=== PATIENT | male | born 1940 | race Caucasian/White ===

== ENCOUNTER → 2017-04-08 | Outpatient (CLI) | payer OTHER, MEDICARE ==
[~2017-04-08] MED LIST: ACET-1256 PO; ASPCH81 PO; FISH1CAP7; GABA-113 PO; HYDC25 PO; MULT-506 PO; NAPR1TAB9 PO; TROL10LO; [UNRECOGNIZED DRUG - OTHER] TOP; compounded cream TOP; lidocaine patch
[2017-04-08 13:12] LABS: ALT/SGPT 23 U/L (12-78); BLOOD UREA NITROGEN 28 mg/dl (7-18); CARBON DIOXIDE 29 mmol/L (21-32); CHLORIDE 101 mmol/L (98-107); GLUCOSE 79 mg/dl (70-99); POTASSIUM 3.9 mmol/L (3.5-5.1); SODIUM 137 mmol/L (136-145)
[2017-04-08 13:15] LABS: ALB/GLOB RATIO 1.5 (0.9-2); ALKALINE PHOSPHATASE 64 U/L (45-117); AST/SGOT 21 U/L (15-37)
== END | disposition home or self-care (01) ==
LOC: C.LABPVFM 08:12
PROVIDERS: ATTEND Family Medicine
DX: I10 Essential (primary) hypertension (principal); C85.10 Unspecified B-cell lymphoma, unspecified site; E55.9 Vitamin D deficiency, unspecified

== ENCOUNTER → 2017-10-11 | Outpatient (CLI) | payer OTHER, MEDICARE ==
[~2017-10-11] MED LIST changes: -NAPR1TAB9 PO; -[UNRECOGNIZED DRUG - OTHER] TOP; -compounded cream TOP
[2017-10-11 13:09] LABS: ALT/SGPT 23 U/L (12-78); BLOOD UREA NITROGEN 23 mg/dl (7-18); BUN/CREATININE RATIO 16.1 (10-20); CALCIUM 8.8 mg/dl (8.5-10.1); CARBON DIOXIDE 31 mmol/L (21-32); CHLORIDE 97 mmol/L (98-107); CREATININE 1.42 mg/dl (0.60-1.40); GLUCOSE 116 mg/dl (70-99); POTASSIUM 3.5 mmol/L (3.5-5.1); SODIUM 135 mmol/L (136-145)
[2017-10-11 13:12] LABS: ALB/GLOB RATIO 1.1 (0.9-2); ALKALINE PHOSPHATASE 87 U/L (45-117); AST/SGOT 16 U/L (15-37)
== END | disposition home or self-care (01) ==
LOC: C.LABPVFM 08:44
PROVIDERS: ATTEND Family Medicine
DX: I10 Essential (primary) hypertension (principal); C85.10 Unspecified B-cell lymphoma, unspecified site; E11.42 Type 2 diabetes mellitus with diabetic polyneuropathy; B02.29 Other postherpetic nervous system involvement

== ENCOUNTER → 2018-03-09 | Outpatient (CLI) | payer OTHER ==
[2018-03-09 13:12] LABS: BASO ABS # 0.08 K/uL (0-0.2); EOS % 5.1 %; HEMATOCRIT 46.3 % (42-52); HEMOGLOBIN 16.2 g/dL (14.0-18.0); IG# 0.01 K/uL (0.00-0.02); LYMPH % 24.6 %; LYMPH ABS # 0.97 K/uL (1.2-3.4); MEAN CELL VOLUME 89.7 fL (80-100); MEAN CORPUSCULAR HEMOGLOBIN 31.4 pg (25-34); MEAN PLATELET VOLUME 10.8 fL (7.4-10.4); MONO % 13.5 %; MONO ABS # 0.53 K/uL (0.11-0.59); NEUT % 54.5 %; NEUT ABS # 2.15 K/uL (1.4-6.5); PLATELET COUNT 235 K/uL (130-400); RED CELL DISTRIBUTION WIDTH CV 13.7 % (11.5-14.5); RED CELL DISTRIBUTION WIDTH SD 45.1 fL (36.4-46.3); WHITE BLOOD COUNT 3.94 K/uL (4.8-10.8)
[2018-03-09 13:20] LABS: ALBUMIN 3.8 gm/dl (3.4-5.0); ALT/SGPT 24 U/L (12-78); AST/SGOT 19 U/L (15-37); BLOOD UREA NITROGEN 22 mg/dl (7-18); CALCIUM 9.2 mg/dl (8.5-10.1); CARBON DIOXIDE 33 mmol/L (21-32); CREATININE 1.41 mg/dl (0.60-1.40); GLUCOSE 87 mg/dl (70-99); POTASSIUM 3.6 mmol/L (3.5-5.1); SODIUM 133 mmol/L (136-145)
[2018-03-09 13:22] LABS: ALKALINE PHOSPHATASE 80 U/L (45-117); TOTAL PROTEIN 7.4 gm/dl (6.4-8.2)
[2018-03-10 07:20] LABS: HEMOGLOBIN A1C 6.1 % (4.5-5.6)
== END | disposition home or self-care (01) ==
LOC: C.LABPVFM 09:30
PROVIDERS: ATTEND Family Medicine
DX: I12.9 Hypertensive chronic kidney disease with stage 1 through stage 4 chronic kidney disease, or unspecified chronic kidney disease (principal); C85.10 Unspecified B-cell lymphoma, unspecified site; R73.09 Other abnormal glucose; N18.3 Chronic kidney disease, stage 3 (moderate); E55.9 Vitamin D deficiency, unspecified; B02.29 Other postherpetic nervous system involvement

== ENCOUNTER 2019-05-08 08:35 | Inpatient (IN) ==
[2019-05-08] MEDS ORDERED: SODIUM CHLORIDE 0.9% 250 ML IV PRN (08:50)
[2019-05-08] MEDS ORDERED: SODIUM CHLORIDE 0.9% 1000ML 1,000 ML IV SCH (09:00)
[2019-05-08 09:22] LABS: Basophils # (auto) 0.02 K/uL (0-0.2); Basophils % (auto) 0.2 %; Eosinophils # (auto) 0.08 K/uL (0-0.5); Eosinophils % (auto) 0.8 %; Hematocrit (blood only) 40.4 % (42-52); Hemoglobin 13.6 g/dL (14.0-18.0); Immature Granulocytes # (auto) 0.05 K/uL (0.00-0.02); Immature Granulocytes % (auto) 0.5 %; Lymphocytes # (auto) 0.93 K/uL (1.2-3.4); Lymphocytes % (auto) 8.8 %; Mean Corpuscular Hgb Conc 33.7 g/dL (32-36); Mean Corpuscular Volume 93.1 fL (80-100); Mean Platelet Volume 10.9 fL (7.4-10.4); Monocytes # (auto) 0.77 K/uL (0.11-0.59); Monocytes % (auto) 7.3 %; Neutrophils # (auto) 8.74 K/uL (1.4-6.5); Neutrophils % (auto) 82.4 %; Platelet Count 215 K/uL (130-400); RDW Standard Deviation 47.6 fL (36.4-46.3); Red Blood Count 4.34 M/uL (4.7-6.1); White Blood Count 10.59 K/uL (4.8-10.8)
[2019-05-08 09:24] LABS: iSTAT Creatinine 1.7 mg/dl (0.6-1.3); iSTAT Hemoglobin 13.9 g/dl (14.0-18.0); iSTAT Ionized Calcium 1.11 mmol/l (1.12-1.32); iSTAT Potassium 4.3 mEq/L (3.3-5.0)
[2019-05-08 09:38] LABS: Albumin Level 3.3 gm/dl (3.4-5.0); BUN Creatinine Ratio 12.1 (10-20); Calcium 8.3 mg/dl (8.5-10.1); Est GFR (African American) 41.4; Est GFR (Non-African American) 35.7; Potassium 4.3 mmol/L (3.5-5.1)
[2019-05-08 09:39] LABS: Partial Thromboplastin Ratio 0.8; Prothrombin Time 10.5 Seconds (9.0-12.0)
[2019-05-08 09:41] LABS: Albumin Globulin Ratio 1.1 (0.9-2); Bilirubin,Total 0.4 mg/dl (0.2-1); Total Protein 6.3 gm/dl (6.4-8.2)
--- NOTE | 2019-05-08 10:42 | History & Physical Report ---
Date of Service May 08, 2019 Assessment & Plan (1) Lower GI bleed: - Presented with rectal bleeding following polyp removal at [facility] on 05/01/19. Cannot be transferred to [place] due to limited bed availability. - Occult stool was positive. - Hemoglobin level 13.9; trend CBC q8hr, type and cross also ordered. - Famotidine 20 mg IV BID (PPI IV is not available) - GI consulted, appreciate input. - NPO except meds in setting of acute bleed. IV fluids at 100 cc/hr. (2) Acute anemia: - In setting of acute GI bleed following polyp removal. - Trend CBC q8hr -- may require transfusion support. (3) Polyp of colon: - Will need to obtain records from [facility] regarding pathology reports. - Transfer to [facility] pending bed availability. (4) Syncope: - Likely vasovagal episode following multiple BMs this morning with GI bleeding noted. - IV fluids at 100 cc/hr. - Will obtain orthostatic vital signs. - No indication for further cardiac work up at this time. (5) Postherpetic neuralgia: - Continue Gabapentin 600 mg TID. (6) Lymphoma: - H/o DLBCL of nasopharynx in 2014. - Follows with Dr. Abebe. (7) Pre-diabetes: - Most recent A1C was 6.1 -- will repeat level this afternoon. - SSI ordered with gluc checks q6hr in setting of NPO status. (8) CKD (chronic kidney disease), stage III: - Renally dose all meds. - Creat is slightly above baseline, will monitor qAM. - IV fluids at 100 cc/hr. (9) DVT prophylaxis: - SCDs; holding home Aspirin and pharmacologic ppx due to acute bleed. Dispo: PCU/tele for evaluation of lower GI bleed. Pt. may require transfer to [facility] if no improvement. Dr. Boyd is consulted. History of Present Illness Chief Complaint: Rectal Bleeding Primary Care Provider: Lyla Bautista MD Mr. Gaytan is an 78 year old male with past medical history of herpes zoster with post herpetic neuralgia, DLBCL of the nasopharynx, CKD stage III who presented with rectal bleeding following recent polyp removal at [facility]. Pt. had a colonoscopy with polyp removal at [facility] on 05/01/19; he follows with Dr. Boyd but was referred to [facility] for procedure. Pt. was discharged to home on day of procedure and was doing well throughout course of the week. He had multiple BMs this morning after waking up; pt. noticed pink-red discoloration in the toilet after having his 3-4 BM. He laid down in bed but felt the urge to have another BM. After standing up, he developed dizziness and had a syncopal episode. He denies injury to the any area, including hitting his head during the fall. He laid on the ground until the ambulance arrived. Denied shortness of breath or chest pain prior to fall. Does have left sided ear/neck pain related to post herpetic neuralgia. Denies chest pain, SOB, LE edema, headache or vision changes, N/V, abd pain, dysuria or hematuria. ER course: [facility] was contacted for transfer per Dr. Boyd but does not currently have any beds available. Hemoglobin was stable; hemodynamically stable on labs. Will admit for lab work monitoring/IV fluids and transfer to [facility] if necessary pending further evaluation/workup. Allergies Allergy/AdvReac Type Severity Reaction Status Date / Time No Known Allergies Allergy Verified 05/08/19 09:46 Home Medications Home Medications Medication Instructions Recorded Confirmed Type acetaminophen 500 mg tablet 1,000 mg PO Q6H PRN tab 09/14/18 05/08/19 History aspirin 81 mg tablet,delayed 81 mg PO DAILY 09/14/18 05/08/19 History release lidocaine 4 % topical patch 1 patch TOP TID PRN 09/14/18 05/08/19 History omega-3 fatty acids 1,000 mg 1,000 mg PO BID 09/14/18 05/08/19 History capsule gabapentin 600 mg PO TID 05/08/19 05/08/19 History trolamine salicylate 1 applic TOPICAL BID PRN 05/08/19 05/08/19 History Past Med/Surg History Medical History Cervical spondylosis (Chronic) Former smoker (Chronic) Postherpetic neuralgia (Chronic) Lymphoma (Chronic) 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 HTN (hypertension) (Chronic) Polyp of colon Family History Father , Age 91 Renal failure Mother Breast cancer Social History Preferred Language: Divehi Communication Ability: Effective Beliefs That Will Affect Care: None Current Living Situation: Spouse Current Living Situation Comment: Other Information That Helps Us Care for You: No Feels Safe at Home: Yes Safety Concerns: Feels Safe At This Time Smoking Status: Former smoker Tobacco Type: cigarettes Years Smoked: 35 Smoking End Date: 2000 Hx Alcohol Use: Yes (2-3 beers per day ) Alcohol type: beer Hx Substance Use: No Review of Systems Review of Systems: All systems reviewed & are unremarkable except as noted in HPI & below Constitutional: no fever, no chills, no fatigue, no weakness and no anorexia Eyes: no worsening vision Ear, Nose, Mouth, Throat: no nasal discharge and no sore throat Respiratory: no cough, no dyspnea, no dyspnea on exertion and no wheezing Cardiovascular: + lightheadedness and + syncope; no chest pain, no palpitations and no edema Gastrointestinal: + diarrhea/loose stools and + blood in stools; no abdominal pain, no bloating, no nausea, no vomiting and no constipation Genitourinary: no dysuria, no difficulty urinating and no urinary hesitancy Musculoskeletal: no back pain and no joint pain Integumentary: no non-healing lesions Neurologic: no headache(s) Hematologic / Lymphatic: no easy bleeding and no easy bruising Allergy / Immunological: no rash Physical Exam Physical Exam: General: Resting comfortably in no apparent distress HEENT: NC/AT; PERRLA with EOMI; [place] conjunctiva, MMM. No erythema of posterior pharynx Neck: Supple and nontender; No JVD Cardiac: RRR w/o murmurs, gallops or rubs Lungs: CTA bilaterally; No rhonchi, wheezing, or rales Abdomen: Bowel normoactive X 4; Nontender to palpatio Rectal: Deferred : Deferred Back: NO spinous tenderness Extremities: Warm. No edema present Neuro: No focal weakness Skin: No rash Results & Data Vital Signs (Past 12 Hours) Vital Signs Pulse Resp BP Pulse Ox 05/08/19 10:00 64 13 138/89 93 05/08/19 09:45 65 17 140/81 93 05/08/19 09:41 63 20 96 05/08/19 09:31 67 17 145/73 H 05/08/19 09:30 65 11 L 05/08/19 09:17 68 13 135/76 92 05/08/19 09:15 68 19 93 05/08/19 09:00 98 05/08/19 08:46 67 21 97 05/08/19 08:43 78 20 122/80 94 05/08/19 08:39 69 26 H 122/80 96 Laboratory Results 05/08/19 05/08/19 05/08/19 Range/Units 09:42 09:30 09:08 WBC (4.8-10.8) K/uL RBC (4.7-6.1) M/uL Hgb (14.0-18.0) g/dL POC Hgb 13.9 L (14.0-18.0) g/dl Hct (42-52) % POC Hct 41 L (42-52) % MCV (80-100) fL MCH (25-34) pg MCHC (32-36) g/dL RDW Std Deviation (36.4-46.3) fL RDW Coeff of Chantal (11.5-14.5) % Plt Count (130-400) K/uL MPV (7.4-10.4) fL Immature Gran % (Auto) % Neut % (Auto) % Lymph % (Auto) % [place] % (Auto) % Eos % (Auto) % Baso % (Auto) % Immature Gran # (Auto) (0.00-0.02) K/uL Neut # (Auto) (1.4-6.5) K/uL Lymph # (Auto) (1.2-3.4) K/uL [place] # (Auto) (0.11-0.59) K/uL Eos # (Auto) (0-0.5) K/uL Baso # (Auto) (0-0.2) K/uL PT (9.0-12.0) Seconds INR (0.9-1.1) APTT (21.0-31.0) Seconds PTT Ratio POC Sodium 135 (135-144) mEq/L Sodium (136-145) mmol/L POC Potassium 4.3 (3.3-5.0) mEq/L Potassium (3.5-5.1) mmol/L POC Chloride 98 L (101-112) mEq/L Chloride (98-107) mmol/L Carbon Dioxide (21-32) mmol/L POC Total CO2 24 (24-31) mEq/l Anion Gap (3-11) POC Anion Gap 18.0 (16-25) mmol/L POC BUN 24 H (7-18) mg/dl BUN (7-18) mg/dl Creatinine (0.6-1.4) mg/dl POC Creatinine 1.7 H (0.6-1.3) mg/dl Est Cr Clr Drug Dosing ml/min Est GFR ( Amer) Est GFR (Non-Af Amer) BUN/Creatinine Ratio (10-20) Glucose (70-99) mg/dl POC Glucose (other) 207 H (70-99) mg/dl Calcium (8.5-10.1) mg/dl POC Ioniz Calcium Dion 1.11 L (1.12-1.32) mmol/l Total Bilirubin (0.2-1) mg/dl AST (15-37) U/L ALT (12-78) U/L Alkaline Phosphatase (45-117) U/L Total Protein (6.4-8.2) gm/dl Albumin (3.4-5.0) gm/dl Globulin (2.5-4.0) gm/dl Albumin/Globulin Ratio (0.9-2) Specimen Hemolysis POC Stool Occult Blood Positive A (Negative) Blood Type Blood Type Recheck O Positive Antibody Screen Crossmatch 05/08/19 05/08/19 05/08/19 Range/Units 08:57 08:57 08:57 WBC (4.8-10.8) K/uL RBC (4.7-6.1) M/uL Hgb (14.0-18.0) g/dL POC Hgb (14.0-18.0) g/dl Hct (42-52) % POC Hct (42-52) % MCV (80-100) fL MCH (25-34) pg MCHC (32-36) g/dL RDW Std Deviation (36.4-46.3) fL RDW Coeff of Chantal (11.5-14.5) % Plt Count (130-400) K/uL MPV (7.4-10.4) fL Immature Gran % (Auto) % Neut % (Auto) % Lymph % (Auto) % [place] % (Auto) % Eos % (Auto) % Baso % (Auto) % Immature Gran # (Auto) (0.00-0.02) K/uL Neut # (Auto) (1.4-6.5) K/uL Lymph # (Auto) (1.2-3.4) K/uL [place] # (Auto) (0.11-0.59) K/uL Eos # (Auto) (0-0.5) K/uL Baso # (Auto) (0-0.2) K/uL PT 10.5 (9.0-12.0) Seconds INR 1.0 (0.9-1.1) APTT 21.0 (21.0-31.0) Seconds PTT Ratio 0.8 POC Sodium (135-144) mEq/L Sodium 136 (136-145) mmol/L POC Potassium (3.3-5.0) mEq/L Potassium 4.3 (3.5-5.1) mmol/L POC Chloride (101-112) mEq/L Chloride 102 (98-107) mmol/L Carbon Dioxide 25 (21-32) mmol/L POC Total CO2 (24-31) mEq/l Anion Gap 9.0 (3-11) POC Anion Gap (16-25) mmol/L POC BUN (7-18) mg/dl BUN 21 H (7-18) mg/dl Creatinine 1.76 H (0.6-1.4) mg/dl POC Creatinine (0.6-1.3) mg/dl Est Cr Clr Drug Dosing 38.0 ml/min Est GFR ( Amer) 41.4 Est GFR (Non-Af Amer) 35.7 BUN/Creatinine Ratio 12.1 (10-20) Glucose 200 H (70-99) mg/dl POC Glucose (other) (70-99) mg/dl Calcium 8.3 L (8.5-10.1) mg/dl POC Ioniz Calcium Dion (1.12-1.32) mmol/l Total Bilirubin 0.4 (0.2-1) mg/dl AST 20 (15-37) U/L ALT 20 (12-78) U/L Alkaline Phosphatase 67 (45-117) U/L Total Protein 6.3 L (6.4-8.2) gm/dl Albumin 3.3 L (3.4-5.0) gm/dl Globulin 3.0 (2.5-4.0) gm/dl Albumin/Globulin Ratio 1.1 (0.9-2) Specimen Hemolysis POC Stool Occult Blood (Negative) Blood Type O Positive Blood Type Recheck Antibody Screen NEGATIVE Crossmatch See Detail 05/08/19 Range/Units 08:57 WBC 10.59 (4.8-10.8) K/uL RBC 4.34 L (4.7-6.1) M/uL Hgb 13.6 L (14.0-18.0) g/dL POC Hgb (14.0-18.0) g/dl Hct 40.4 L (42-52) % POC Hct (42-52) % MCV 93.1 (80-100) fL MCH 31.3 (25-34) pg MCHC 33.7 (32-36) g/dL RDW Std Deviation 47.6 H (36.4-46.3) fL RDW Coeff of Chantal 14.0 (11.5-14.5) % Plt Count 215 (130-400) K/uL MPV 10.9 H (7.4-10.4) fL Immature Gran % (Auto) 0.5 % Neut % (Auto) 82.4 % Lymph % (Auto) 8.8 % [place] % (Auto) 7.3 % Eos % (Auto) 0.8 % Baso % (Auto) 0.2 % Immature Gran # (Auto) 0.05 H (0.00-0.02) K/uL Neut # (Auto) 8.74 H (1.4-6.5) K/uL Lymph # (Auto) 0.93 L (1.2-3.4) K/uL [place] # (Auto) 0.77 H (0.11-0.59) K/uL Eos # (Auto) 0.08 (0-0.5) K/uL Baso # (Auto) 0.02 (0-0.2) K/uL PT (9.0-12.0) Seconds INR (0.9-1.1) APTT (21.0-31.0) Seconds PTT Ratio POC Sodium (135-144) mEq/L Sodium (136-145) mmol/L POC Potassium (3.3-5.0) mEq/L Potassium (3.5-5.1) mmol/L POC Chloride (101-112) mEq/L Chloride (98-107) mmol/L Carbon Dioxide (21-32) mmol/L POC Total CO2 (24-31) mEq/l Anion Gap (3-11) POC Anion Gap (16-25) mmol/L POC BUN (7-18) mg/dl BUN (7-18) mg/dl Creatinine (0.6-1.4) mg/dl POC Creatinine (0.6-1.3) mg/dl Est Cr Clr Drug Dosing ml/min Est GFR ( Amer) Est GFR (Non-Af Amer) BUN/Creatinine Ratio (10-20) Glucose (70-99) mg/dl POC Glucose (other) (70-99) mg/dl Calcium (8.5-10.1) mg/dl POC Ioniz Calcium Dion (1.12-1.32) mmol/l Total Bilirubin (0.2-1) mg/dl AST (15-37) U/L ALT (12-78) U/L Alkaline Phosphatase (45-117) U/L Total Protein (6.4-8.2) gm/dl Albumin (3.4-5.0) gm/dl Globulin (2.5-4.0) gm/dl Albumin/Globulin Ratio (0.9-2) Specimen Hemolysis POC Stool Occult Blood (Negative) Blood Type Blood Type Recheck Antibody Screen Crossmatch Code Status & VTE Plan Code Status FULL CODE Supervising Physician Co-Signing Physician Notes Attending Attestation and Admission Note - Pt seen/examined, chart reviewed, admission care plan d/w JOSE Thomas. I agree w/ the plaza components of her admission documentation. 78yo male with recent colonic polypectomy at [facility] 1 week ago presenting with BRBPR with resulting acute blood loss anemia. I saw him on the tele unit and he was prepping for colonoscopy scheduled for tomorrow. Bleeding has been mild at best. Denied any abdominal pain. PMH, PSH, allergies, meds, sochx, famhx, ros - reviewed VSS, no fever gen- nad mouth- MMM neck- JVD heart- RRR, s1, s2 lungs- CTA b/l abd- soft, NT, ND, BS+, no HSM ext- no edema H/H w/ mild drop since admission A/P: Presumed lower GI bleed with resulting acute blood loss anemia in setting of recent colonic polypectomy at [facility] last week. Plan for serial H/H's, colonoscopy tomorrow w/ [facility], NPO after MN, colon prep tonight. Telemetry. Willy Casarez MD PG Care Time/CCT Total # of Minutes Spent Total Time Spent with Patient: Total time spent is greater than 50% in coordination of care (as documented) at patient's floor/unit and/or counseling patient:
[2019-05-08] MEDS ORDERED: CALCIUM GLUCONATE 10% 1,000 MG in SODIUM CHLORIDE 0.9% 50 ML IV STA (11:17)
[2019-05-08] MEDS ORDERED: ONDANSETRON INJ 2 MG/ML 2 ML VIAL IV PRN (11:17)
[2019-05-08] MEDS ORDERED: GLUCOSE 40% GEL 15 GM TUBE PO PRN (11:17)
[2019-05-08] MEDS ORDERED: DEXTROSE 50% 50 ML SYRINGE IV PRN (11:17)
[2019-05-08] MEDS ORDERED: ACETAMINOPHEN 500 MG TAB PO PRN (11:17)
[2019-05-08] MEDS ORDERED: GLUCOSE 10 TABS/TUBE PO PRN (11:17)
[2019-05-08] MEDS ORDERED: CARBOHYDRATES FOR HYPOGLYCEMIA PO PRN (11:17)
[2019-05-08] MEDS ORDERED: GLUCAGON FOR INJ 1 MG VIAL SQ PRN (11:17)
[2019-05-08] MEDS ORDERED: INSULIN ASPART 100 UNITS/ML 3 ML PEN SC SCH (11:30)
[2019-05-08] MEDS: FAMOTIDINE 20 MG in SYRINGE 3 ML IV SCH ×2 (12:11→21:56)
[2019-05-08] MEDS: SODIUM CHLORIDE 0.9% 1000ML 1,000 ML IV SCH ×2 (12:14→23:38)
[2019-05-08 14:16] LABS: Hematocrit (blood only) 35.2 % (42-52); Hemoglobin 11.9 g/dL (14.0-18.0); Mean Corpuscular Hgb Conc 33.8 g/dL (32-36); Mean Corpuscular Volume 91.2 fL (80-100); Mean Platelet Volume 10.5 fL (7.4-10.4); Platelet Count 188 K/uL (130-400); RDW Coefficient of Variation 13.9 % (11.5-14.5); Red Blood Count 3.86 M/uL (4.7-6.1); White Blood Count 7.78 K/uL (4.8-10.8)
[2019-05-08] MEDS: GABAPENTIN 600 MG TAB PO SCH ×2 (14:17→23:34)
[2019-05-08 14:27] LABS: Estimated Average Glucose 117 mg/dl; Hemoglobin A1C 5.7 % (4.5-5.6)
[2019-05-08 14:40] LABS: BUN Creatinine Ratio 14.7 (10-20); Calcium 8.1 mg/dl (8.5-10.1); Creatinine Clr Calc Pharmacy 56.1 ml/min; Est GFR (African American) 66.5; Est GFR (Non-African American) 57.3; Potassium 4.1 mmol/L (3.5-5.1)
--- NOTE | 2019-05-08 15:43 | Emergency Department Note ---
Entered by Keyona Medina acting as a scribe for History of Present Illness General Chief complaint: Rectal Bleed Stated complaint: rectal bleed Time Seen by Provider: 05/08/19 08:41 Source: patient Mode of arrival: EMS Limitations: no limitations History of Present Illness Provider complaint: rectal bleeding Onset (ago): hour(s) (this am) Location: abdomen Pain Consistency: + other (episodic) Quality: + other (post-op) Associated symptoms: + denies other symptoms and + syncope; no fever/chills The patient is an 78 year old male who presents to the Emergency Room with complaints of episodic rectal bleeding that began this morning. The patient reports that he had an endoscopy performed a week ago at [facility]. He states that today, he had 4 bowel movements and believes the last one contained blood. He explains that it was very dark. He also notes that after his 4th bowel movement, he felt like he had to go again but that on his way to the bathroom, he lost consciousness s and fell. He reports that he then drank some Gatorade but that he has had a dry mouth since. He denies being on any blood thinners. He also denies any fevers, chills or abdominal pain. [facility] records show that patient had an endoscopy performed on May 01 where they found and receded a polyp from the cecum. There was a small ooze afterwards, so 2 metal clips were placed. There was no bleeding during the procedure. Home Medications Home Medications Medication Instructions Recorded Confirmed Type acetaminophen 500 mg tablet 1,000 mg PO Q6H PRN tab 09/14/18 05/08/19 History aspirin 81 mg tablet,delayed 81 mg PO DAILY 09/14/18 05/08/19 History release lidocaine 4 % topical patch 1 patch TOP TID PRN 09/14/18 05/08/19 History omega-3 fatty acids 1,000 mg 1,000 mg PO BID 09/14/18 05/08/19 History capsule gabapentin 600 mg PO TID 05/08/19 05/08/19 History trolamine salicylate 1 applic TOPICAL BID PRN 05/08/19 05/08/19 History Allergies Allergy/AdvReac Type Severity Reaction Status Date / Time No Known Allergies Allergy Verified 05/08/19 09:46 Past Med/Surg History Medical History Cervical spondylosis (Chronic) Former smoker (Chronic) Postherpetic neuralgia (Chronic) Lymphoma (Chronic) 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 HTN (hypertension) (Chronic) Polyp of colon Family History Father , Age 91 Renal failure Mother Breast cancer Social History Preferred Language: Croatian Communication Ability: Effective Beliefs That Will Affect Care: None Current Living Situation: Spouse Current Living Situation Comment: Other Information That Helps Us Care for You: No Feels Safe at Home: Yes Safety Concerns: Feels Safe At This Time Smoking Status: Former smoker Tobacco Type: cigarettes Years Smoked: 35 Smoking End Date: 2000 Hx Alcohol Use: Yes (2-3 beers per day ) Alcohol type: beer Hx Substance Use: No Review of Systems See HPI for pertinent positives & negatives. and A total of 10 systems reviewed and were otherwise negative Physical Exam Vital Signs Vital Signs - 24 hr 05/08/19 08:39 05/08/19 08:43 05/08/19 08:46 Sepsis Recent Fever Within 48 Hours No Sepsis New/Unexplained Change in Mental Status No Sepsis Action Taken by Nursing No Action Required Pulse Rate 69 78 67 Pulse Rate from SpO2 Sensor 69 68 Pulse Rhythm Regular Pulse Strength Normal Respiratory Rate 26 H 20 21 Respiratory Effort / Characteristics Non-Labored Spontaneous Respiratory Depth Normal Respiratory Pattern Regular Blood Pressure 122/80 122/80 Blood Pressure Mean 94 94 Blood Pressure Position Sitting Pulse Oximetry 96 94 97 Oxygen Delivery Method Room Air 05/08/19 09:00 05/08/19 09:15 05/08/19 09:17 Sepsis Recent Fever Within 48 Hours Sepsis New/Unexplained Change in Mental Status Sepsis Action Taken by Nursing Pulse Rate 68 68 Pulse Rate from SpO2 Sensor 76 68 69 Pulse Rhythm Pulse Strength Respiratory Rate 19 13 Respiratory Effort / Characteristics Respiratory Depth Respiratory Pattern Blood Pressure 135/76 Blood Pressure Mean 95 Blood Pressure Position Pulse Oximetry 98 93 92 Oxygen Delivery Method 05/08/19 09:30 05/08/19 09:31 05/08/19 09:41 Sepsis Recent Fever Within 48 Hours Sepsis New/Unexplained Change in Mental Status Sepsis Action Taken by Nursing Pulse Rate 65 67 63 Pulse Rate from SpO2 Sensor Pulse Rhythm Pulse Strength Respiratory Rate 11 L 17 20 Respiratory Effort / Characteristics Respiratory Depth Respiratory Pattern Blood Pressure 145/73 H Blood Pressure Mean 97 Blood Pressure Position Pulse Oximetry 96 Oxygen Delivery Method Room Air 05/08/19 09:45 05/08/19 09:52 Sepsis Recent Fever Within 48 Hours Sepsis New/Unexplained Change in Mental Status Sepsis Action Taken by Nursing Pulse Rate 65 Pulse Rate from SpO2 Sensor 63 Pulse Rhythm Pulse Strength Respiratory Rate 17 Respiratory Effort / Characteristics Respiratory Depth Respiratory Pattern Blood Pressure 140/81 Blood Pressure Mean 100 Blood Pressure Position Pulse Oximetry 93 Oxygen Delivery Method Room Air General: Non-ill appearing older male in no acute distress. Dry blood in underwear. HEENT: Normal cephalic atraumatic. Pupils are equal round and reactive to light. Extraocular movements are intact. Oropharynx is pink with moist mucous membranes. No swelling of the mouth lips or tongue. Neck: Supple with a midline trachea. No meningeal signs or stiffness, no JVD or bruits. No Stridor. Chest: Clear to auscultation bilaterally. No wheezes or rhonchi. No increased work of breathing. Heart: regular rate and rhythm. Abdomen: Soft nontender, nondistended without rebound guarding or rigidity. Extremities: No cyanosis clubbing or edema. No calf tenderness or asymmetry Rectal: Bright red blood. Spine/Back. Non tender to palpation. No CVA tenderness Skin: Good turgor without rashes. Neurologic exam: Cranial nerves two through 12 are intact. Motor and sensation are intact and symmetrical throughout. Course 0843: Past medical records reviewed. The patient was evaluated in room B4B. A complete history and physical examination was performed. 0901: I reviewed the patient's case with Dr. Boyd - Gastroenterology. He recommends transfer of the patient. 0905: I updated the patient and he is agreeable with the treatment plan. 0917: Dr. Dee [facility] Gastroenterology. He reports that there are no beds currently, but that they will place the patient on the wait list. He states that this is most likely a post-polyp bleed and that our local GI should be able to assess this. 0927: I updated the patient. 0938: I updated Dr. Boyd and he is agreeable with the plan. 0944: I reviewed the patient's case with Dr. Retana - [facility] Hospitalist. She will evaluate the patient for further management. Administered Medications Gabapentin (Neurontin) 600 mg PO TID TONI Stop: 06/07/19 13:59 Last Admin: 05/08/19 14:17 Dose: 600 mg Documented by: [id number] Sodium Chloride (Nss 1000ml) 1,000 mls @ 100 mls/hr IV .Q10H TONI Stop: 06/07/19 11:14 Last Admin: 05/08/19 12:14 Dose: 100 mls/hr Documented by: [id number] Famotidine 20 mg/ Syringe 5 mls @ 2.5 mls/min IV BID TONI Stop: 06/07/19 11:16 Last Admin: 05/08/19 12:11 Dose: 2.5 mls/min Documented by: [id number] Insulin Aspart (Novolog Flexpen) 0 units SC ACHS TONI Stop: 06/07/19 11:29 Last Admin: 05/08/19 12:14 Dose: Not Given Documented by: [id number] Cosigned by: [id number] Discontinued Medications Sodium Chloride (Nss 1000ml) 1,000 mls @ 100 mls/hr IV .Q10H TONI Stop: 05/08/19 18:59 Last Infusion: 05/08/19 11:20 Dose: 0 mls/hr Documented by: [id number] Admin: 05/08/19 09:13 Dose: 100 mls/hr Documented by: [id number] Calcium Gluconate 1,000 mg/ (Sodium Chloride) 60 mls @ 240 mls/hr IV NOW STA Stop: 05/08/19 11:31 Last Infusion: 05/08/19 12:27 Dose: 0 mls/hr Documented by: [id number] Admin: 05/08/19 12:12 Dose: 240 mls/hr Documented by: [id number] Medical Decision Making Differential Diagnosis Differential diagnosis includes: GI bleed, post-op complication, anemia, infection, electrolyte and metabolic abnormality. Medical Records Attestation: I reviewed the patient's medical records. Home Medications Current Medication List: was personally reviewed by me Laboratory Data Attestation: I reviewed the patient's lab results. Result diagrams: 05/08/19 14:05 05/08/19 14:05 Lab Results 05/08/19 05/08/19 05/08/19 Range/Units 08:57 08:57 08:57 WBC 10.59 (4.8-10.8) K/uL RBC 4.34 L (4.7-6.1) M/uL Hgb 13.6 L (14.0-18.0) g/dL POC Hgb (14.0-18.0) g/dl Hct 40.4 L (42-52) % POC Hct (42-52) % MCV 93.1 (80-100) fL MCH 31.3 (25-34) pg MCHC 33.7 (32-36) g/dL RDW Std Deviation 47.6 H (36.4-46.3) fL RDW Coeff of Chantal 14.0 (11.5-14.5) % Plt Count 215 (130-400) K/uL MPV 10.9 H (7.4-10.4) fL Immature Gran % (Auto) 0.5 % Neut % (Auto) 82.4 % Lymph % (Auto) 8.8 % Gregory % (Auto) 7.3 % Eos % (Auto) 0.8 % Baso % (Auto) 0.2 % Immature Gran # (Auto) 0.05 H (0.00-0.02) K/uL Neut # (Auto) 8.74 H (1.4-6.5) K/uL Lymph # (Auto) 0.93 L (1.2-3.4) K/uL Gregory # (Auto) 0.77 H (0.11-0.59) K/uL Eos # (Auto) 0.08 (0-0.5) K/uL Baso # (Auto) 0.02 (0-0.2) K/uL PT 10.5 (9.0-12.0) Seconds INR 1.0 (0.9-1.1) APTT 21.0 (21.0-31.0) Seconds PTT Ratio 0.8 POC Sodium (135-144) mEq/L Sodium 136 (136-145) mmol/L POC Potassium (3.3-5.0) mEq/L Potassium 4.3 (3.5-5.1) mmol/L POC Chloride (101-112) mEq/L Chloride 102 (98-107) mmol/L Carbon Dioxide 25 (21-32) mmol/L POC Total CO2 (24-31) mEq/l Anion Gap 9.0 (3-11) POC Anion Gap (16-25) mmol/L POC BUN (7-18) mg/dl BUN 21 H (7-18) mg/dl Creatinine 1.76 H (0.6-1.4) mg/dl POC Creatinine (0.6-1.3) mg/dl Est Cr Clr Drug Dosing 38.0 ml/min Est GFR ( Amer) 41.4 Est GFR (Non-Af Amer) 35.7 BUN/Creatinine Ratio 12.1 (10-20) Glucose 200 H (70-99) mg/dl POC Glucose (other) (70-99) mg/dl Calcium 8.3 L (8.5-10.1) mg/dl POC Ioniz Calcium Dion (1.12-1.32) mmol/l Total Bilirubin 0.4 (0.2-1) mg/dl AST 20 (15-37) U/L ALT 20 (12-78) U/L Alkaline Phosphatase 67 (45-117) U/L Total Protein 6.3 L (6.4-8.2) gm/dl Albumin 3.3 L (3.4-5.0) gm/dl Globulin 3.0 (2.5-4.0) gm/dl Albumin/Globulin Ratio 1.1 (0.9-2) Specimen Hemolysis POC Stool Occult Blood (Negative) Blood Type Blood Type Recheck Antibody Screen Crossmatch 05/08/19 05/08/19 05/08/19 Range/Units 08:57 09:08 09:30 WBC (4.8-10.8) K/uL RBC (4.7-6.1) M/uL Hgb (14.0-18.0) g/dL POC Hgb 13.9 L (14.0-18.0) g/dl Hct (42-52) % POC Hct 41 L (42-52) % MCV (80-100) fL MCH (25-34) pg MCHC (32-36) g/dL RDW Std Deviation (36.4-46.3) fL RDW Coeff of Chantal (11.5-14.5) % Plt Count (130-400) K/uL MPV (7.4-10.4) fL Immature Gran % (Auto) % Neut % (Auto) % Lymph % (Auto) % Gregory % (Auto) % Eos % (Auto) % Baso % (Auto) % Immature Gran # (Auto) (0.00-0.02) K/uL Neut # (Auto) (1.4-6.5) K/uL Lymph # (Auto) (1.2-3.4) K/uL Gregory # (Auto) (0.11-0.59) K/uL Eos # (Auto) (0-0.5) K/uL Baso # (Auto) (0-0.2) K/uL PT (9.0-12.0) Seconds INR (0.9-1.1) APTT (21.0-31.0) Seconds PTT Ratio POC Sodium 135 (135-144) mEq/L Sodium (136-145) mmol/L POC Potassium 4.3 (3.3-5.0) mEq/L Potassium (3.5-5.1) mmol/L POC Chloride 98 L (101-112) mEq/L Chloride (98-107) mmol/L Carbon Dioxide (21-32) mmol/L POC Total CO2 24 (24-31) mEq/l Anion Gap (3-11) POC Anion Gap 18.0 (16-25) mmol/L POC BUN 24 H (7-18) mg/dl BUN (7-18) mg/dl Creatinine (0.6-1.4) mg/dl POC Creatinine 1.7 H (0.6-1.3) mg/dl Est Cr Clr Drug Dosing ml/min Est GFR ( Amer) Est GFR (Non-Af Amer) BUN/Creatinine Ratio (10-20) Glucose (70-99) mg/dl POC Glucose (other) 207 H (70-99) mg/dl Calcium (8.5-10.1) mg/dl POC Ioniz Calcium Dion 1.11 L (1.12-1.32) mmol/l Total Bilirubin (0.2-1) mg/dl AST (15-37) U/L ALT (12-78) U/L Alkaline Phosphatase (45-117) U/L Total Protein (6.4-8.2) gm/dl Albumin (3.4-5.0) gm/dl Globulin (2.5-4.0) gm/dl Albumin/Globulin Ratio (0.9-2) Specimen Hemolysis POC Stool Occult Blood (Negative) Blood Type O Positive Blood Type Recheck O Positive Antibody Screen NEGATIVE Crossmatch See Detail 05/08/19 Range/Units 09:42 WBC (4.8-10.8) K/uL RBC (4.7-6.1) M/uL Hgb (14.0-18.0) g/dL POC Hgb (14.0-18.0) g/dl Hct (42-52) % POC Hct (42-52) % MCV (80-100) fL MCH (25-34) pg MCHC (32-36) g/dL RDW Std Deviation (36.4-46.3) fL RDW Coeff of Chantal (11.5-14.5) % Plt Count (130-400) K/uL MPV (7.4-10.4) fL Immature Gran % (Auto) % Neut % (Auto) % Lymph % (Auto) % Gregory % (Auto) % Eos % (Auto) % Baso % (Auto) % Immature Gran # (Auto) (0.00-0.02) K/uL Neut # (Auto) (1.4-6.5) K/uL Lymph # (Auto) (1.2-3.4) K/uL Gregory # (Auto) (0.11-0.59) K/uL Eos # (Auto) (0-0.5) K/uL Baso # (Auto) (0-0.2) K/uL PT (9.0-12.0) Seconds INR (0.9-1.1) APTT (21.0-31.0) Seconds PTT Ratio POC Sodium (135-144) mEq/L Sodium (136-145) mmol/L POC Potassium (3.3-5.0) mEq/L Potassium (3.5-5.1) mmol/L POC Chloride (101-112) mEq/L Chloride (98-107) mmol/L Carbon Dioxide (21-32) mmol/L POC Total CO2 (24-31) mEq/l Anion Gap (3-11) POC Anion Gap (16-25) mmol/L POC BUN (7-18) mg/dl BUN (7-18) mg/dl Creatinine (0.6-1.4) mg/dl POC Creatinine (0.6-1.3) mg/dl Est Cr Clr Drug Dosing ml/min Est GFR ( Amer) Est GFR (Non-Af Amer) BUN/Creatinine Ratio (10-20) Glucose (70-99) mg/dl POC Glucose (other) (70-99) mg/dl Calcium (8.5-10.1) mg/dl POC Ioniz Calcium Dion (1.12-1.32) mmol/l Total Bilirubin (0.2-1) mg/dl AST (15-37) U/L ALT (12-78) U/L Alkaline Phosphatase (45-117) U/L Total Protein (6.4-8.2) gm/dl Albumin (3.4-5.0) gm/dl Globulin (2.5-4.0) gm/dl Albumin/Globulin Ratio (0.9-2) Specimen Hemolysis POC Stool Occult Blood Positive A (Negative) Blood Type Blood Type Recheck Antibody Screen Crossmatch ECG Data Attestation: I personally reviewed and interpreted this ECG as follows: Indication: other (GI Bleed) Rate (beats per minute): 66 Rhythm: normal sinus Findings: + other (left axis deviation); no acute ischemic change and no ectopy Comparison ECG Date: from (02-OCT-2016) Change: no significant change Blood Pressure Blood Pressure Findings: Normal blood pressure Blood Pressure Disposition: did not require urgent referral MDM Narrative This patient comes in as described above. He presents after having a GI bleed and an episode where the he fell or had a syncopal episode. He had polyps removed at [place] 1 week ago. These were deep polyps that required more of an invasive procedure that was not typically done here. The patient had been doing well until this morning and had 4 watery bowel movements. The last one was grossly bloody appearing. Upon arrival, the patient is non-tachycardic and has normal blood pressure he does feel slightly cool. I was concerned about his bleeding and I ordered 2 large-bore IVs and type and cross him for 4 units of packed red cells. Also the i-STAT labs and I called and talked to Dr. Boyd. Dr. Boyd had suggested we transfer him to [facility] as they had interventionalists there that were able to do certain procedures that we cannot do here. I called and I talked to Dr. Dee, who is a GI specialist there, he agrees with transferring the patient however he says that they do not have any beds and there are no beds available in the near future. The patient was placed on a wait list there. he suggested that we admit the patient here and monitor. He said sometimes these bleeds do not ultimately even need scoping but if the patient does need scope and that could potentially be done by Dr. Boyd as well. I called Dr. Boyd back and he agreed. I then called the [facility] hospitalist for admission. The patient has remained him dynamically stable here. His initial hemoglobin was 13.9. He has no significant for metabolic abnormalities as EKG is unremarkable. Again he has 2 large-bore IVs and was hydrated normal saline. Impression & Plan Acute GI bleeding, Rectal bleed Critical Care Time Critical Care Time: Yes Total Critical Care Time: 30 I have personally spent greater than 30 minutes of critical care time in the direct management of this patient. This includes bedside care, interpretation o f diagnostic studies, and testing, discussion with consultants, patient, and family members, and other required patient management activities. This 30 minutes is in excess of all separately billable procedures. Discharge Plan Visit Data *Final* Discharge Date/Time: 05/08/19 10:56 Chief Complaint: Rectal Bleed Stated Complaint: rectal bleed ED Provider: Elvin Lopez Discharge Problem: Acute GI bleeding, Rectal bleed Patient Disposition: Admitted As Inpatient Discharge Instructions Interventions: ED Discharge Assessment Last Done: 05/08/19 10:56 The scribe's documentation has been prepared under my direction and personally reviewed by me in its entirety. I confirm that the note above accurately reflects all work, treatment, procedures, and medical decision making performed by me.
--- NOTE | 2019-05-08 15:47 | Consultation Report ---
DATE OF CONSULTATION: 05/08/2019 REASON FOR CONSULTATION: Rectal bleeding. HISTORY OF PRESENT ILLNESS: The patient is an 78-year-old who was referred to [facility] on May 01 for endoscopic mucosal resection of 3 large right colon polyps, 1 was in the cecum, 2 were in the ascending, these were removed by Dr. Felipe successfully. The patient was released and has done well until this morning when he had 2 large bowel movements that were bloody. The first one passed some bright red blood and the second one was more dark and had some clots in it. He presented to the Emergency Room at 10:00 a.m. with a hemoglobin of 13.9. A subsequent hemoglobin has dropped to 11.9. He has had no further bleeding since arriving at the hospital. His vital signs are normal. He has no abdominal pain. Recommendations were for him to be transferred to [place] for treatment of the post-polypectomy bleeding, but there was no bed available there today, so he has been admitted here. Currently, he is on IV Pepcid and is getting hemoglobins done every 8 hours. He has 2 units of blood on hold if needed. PAST MEDICAL HISTORY: Remarkable for colon polyps, postherpetic neuralgia, history of lymphoma in 2014, he is prediabetic, has stage III chronic kidney disease. MEDICATIONS: Acetaminophen, baby aspirin, lidocaine patch topically, omega-3 fatty acids, gabapentin and trolamine topically. ALLERGIES: None. FAMILY HISTORY: Father of renal failure. Mother of breast cancer. SOCIAL HISTORY: The patient is , lives with his spouse, former smoker, quit in 2000. Drinks 2 or 3 beers per day. REVIEW OF SYSTEMS: Positive for some lightheadedness, presyncope at home. The remainder is negative. PHYSICAL EXAMINATION: GENERAL: The patient appears awake, alert, in no acute distress. VITAL SIGNS: Blood pressure is 138/89, pulse 64, respirations 13, pulse ox 93% on room air. LUNGS: Clear. HEART: Showed regular rate and rhythm without murmurs, rubs, or gallops. ABDOMEN: Soft. There are no masses, tenderness, or hepatosplenomegaly. Stool in the Emergency Room was Hemoccult positive. IMPRESSION: The patient presents with post-polypectomy bleeding, most likely from one of his previous polypectomy sites a week ago. Since there are no beds at [place], the patient was admitted here and we will prep him overnight and perform a colonoscopy tomorrow to see if we can find the bleeding site and treat it to prevent further bleeding.
[2019-05-08] MEDS ORDERED: Nursing to Pharmacy Communication ONE (16:06)
[2019-05-08] MEDS: INSULIN ASPART 100 UNITS/ML 3 ML PEN SC SCH ×2 (17:27→23:39)
[2019-05-08] MEDS: LAVAGE SOLUTION 4000ML PO SCH (17:27)
[2019-05-08 22:02] LABS: Hematocrit (blood only) 33.8 % (42-52); Hemoglobin 11.6 g/dL (14.0-18.0); Mean Corpuscular Hgb Conc 34.3 g/dL (32-36); Mean Corpuscular Volume 90.4 fL (80-100); Mean Platelet Volume 10.6 fL (7.4-10.4); Platelet Count 207 K/uL (130-400); RDW Coefficient of Variation 13.8 % (11.5-14.5); RDW Standard Deviation 45.7 fL (36.4-46.3); Red Blood Count 3.74 M/uL (4.7-6.1); White Blood Count 6.24 K/uL (4.8-10.8)
[2019-05-09] MEDS ORDERED: HEPARIN 100 UNIT/ML 5ML FLUSH FLUSH PRN (00:23)
[2019-05-09] MEDS: LAVAGE SOLUTION 4000ML PO SCH (05:57)
[2019-05-09 06:22] LABS: Hematocrit (blood only) 35.3 % (42-52); Hemoglobin 11.8 g/dL (14.0-18.0); Mean Corpuscular Hgb Conc 33.4 g/dL (32-36); Mean Corpuscular Volume 91.2 fL (80-100); Mean Platelet Volume 10.2 fL (7.4-10.4); Platelet Count 209 K/uL (130-400); RDW Standard Deviation 46.4 fL (36.4-46.3); Red Blood Count 3.87 M/uL (4.7-6.1); White Blood Count 6.13 K/uL (4.8-10.8)
[2019-05-09] MEDS: INSULIN ASPART 100 UNITS/ML 3 ML PEN SC SCH (06:50)
[2019-05-09 06:59] LABS: BUN Creatinine Ratio 10.1 (10-20); Calcium 8.1 mg/dl (8.5-10.1); Creatinine Clr Calc Pharmacy 49.8 ml/min; Est GFR (African American) 56.6; Est GFR (Non-African American) 48.8; Potassium 4.1 mmol/L (3.5-5.1)
[2019-05-09] MEDS ORDERED: INSULIN ASPART 100 UNITS/ML 3 ML PEN SC SCH (08:09)
[2019-05-09] MEDS: GABAPENTIN 600 MG TAB PO SCH ×3 (08:19→23:19)
[2019-05-09] MEDS: FAMOTIDINE 20 MG in SYRINGE 3 ML IV SCH ×2 (10:17→20:50)
[2019-05-09] MEDS: SODIUM CHLORIDE 0.9% 1000ML 1,000 ML IV SCH (10:18)
--- NOTE | 2019-05-09 13:09 | Hospitalist Progress Note ---
Date of Service May 09, 2019 Assessment & Plan (1) Lower GI bleed: - Rectal bleeding following polyp removal at [facility] on 05/01/19 - was not transferred to [place] due to limited bed availability. - Occult stool was positive. - Hemoglobin level has been stable, will monitor twice daily. - Famotidine 20 mg IV BID. - GI consulted, appreciate input. Plan for colonoscopy today to evaluate for source of bleeding. - NPO except meds; IV fluids at 80 cc/hr. (2) Acute anemia: - In setting of GI bleed following polyp removal. - Trend CBC twice daily -- has been stable, has not required transfusion support. (3) Polyp of colon: - As noted above. (4) Syncope: - Likely vasovagal episode following multiple BMs with GI bleeding noted; no further episodes noted since admission. - IV fluids at 80 cc/hr. - Orthostatic vital signs were positive on 05/08, will repeat today. - No indication for further cardiac work up at this time. (5) Postherpetic neuralgia: - Continue Gabapentin 600 mg TID. (6) Lymphoma: - H/o DLBCL of nasopharynx in 2014. - Follows with Dr. Abebe. (7) Pre-diabetes: - Hgb A1C level was 5.7. - D/c SSI coverage -- BG has been well controlled. (8) CKD (chronic kidney disease), stage III: - Renally dose all meds. - Creatinine now improved to baseline. (9) DVT prophylaxis: - SCDs; holding home Aspirin/pharmacologic ppx due to acute bleed. Dispo: PCU/tele for lower GI bleed. Plan for colonoscopy today, discharge likely over next 24-48 hours. Supervising Physician Co-Signing Physician Notes Attending Attestation - Chart reviewed, care plan d/w JOSE Thomas. I agree w/ the plaza components of her documentation. To have colonoscopy today for lower GI bleeding, presumed to be from a prior polypectomy site. Mild acute blood loss anemia is present -- cont to trend H/H. Appreciate GI consultation. Willy Casarez MD Subjective Pt. is doing well. Did not have bleeding with BMs this morning, improving. Denies abd pain, nausea/vomiting, chest pain, SOB. Plan for colonoscopy today. Review of Systems Review of Systems: All systems reviewed & are unremarkable except as noted in HPI & below Constitutional: no fever, no chills, no fatigue, no weakness and no anorexia Respiratory: no cough, no dyspnea, no dyspnea on exertion and no wheezing Cardiovascular: no chest pain, no palpitations and no edema Gastrointestinal: no abdominal pain, no nausea, no vomiting, no constipation, no diarrhea/loose stools, no blood in stools and no melena Genitourinary: no difficulty urinating Musculoskeletal: no back pain and no joint pain Integumentary: no non-healing lesions Allergy / Immunological: no rash Physical Exam Physical Exam: General: Resting comfortably in no apparent distress HEENT: NC/AT; PERRLA with EOMI; [place] conjunctiva, MMM. No erythema of posterior pharynx Neck: Supple and nontender Cardiac: RRR Lungs: CTA bilaterally Abdomen: Bowel normoactive X 4; Nontender to palpation Extremities: Warm. No edema present Neuro: No focal weakness Skin: No rash Results & Data Vital Signs (Past 12 Hours) Vital Signs Temp Pulse Pulse Resp BP BP Pulse Ox 05/09/19 11:24 36.9 C 86 22 138/78 92 05/09/19 08:00 88 05/09/19 07:18 36.8 C 90 20 137/90 90 05/09/19 03:23 36.9 C 90 20 114/71 91 05/09/19 02:13 94 H Laboratory Results 05/09/19 05/09/19 05/09/19 Range/Units 06:11 06:11 06:04 WBC 6.13 (4.8-10.8) K/uL RBC 3.87 L (4.7-6.1) M/uL Hgb 11.8 L (14.0-18.0) g/dL Hct 35.3 L (42-52) % MCV 91.2 (80-100) fL MCH 30.5 (25-34) pg MCHC 33.4 (32-36) g/dL RDW Std Deviation 46.4 H (36.4-46.3) fL RDW Coeff of Chantal 14.0 (11.5-14.5) % Plt Count 209 (130-400) K/uL MPV 10.2 (7.4-10.4) fL Sodium 139 (136-145) mmol/L Potassium 4.1 (3.5-5.1) mmol/L Chloride 107 (98-107) mmol/L Carbon Dioxide 26 (21-32) mmol/L Anion Gap 6.0 (3-11) BUN 14 (7-18) mg/dl Creatinine 1.36 (0.6-1.4) mg/dl Est Cr Clr Drug Dosing 49.8 ml/min Est GFR ( Amer) 56.6 Est GFR (Non-Af Amer) 48.8 BUN/Creatinine Ratio 10.1 (10-20) Glucose 92 (70-99) mg/dl POC Glucose 85 (70-99) Estimat Average Glucose mg/dl Hemoglobin A1c (4.5-5.6) % Calcium 8.1 L (8.5-10.1) mg/dl 05/08/19 05/08/19 05/08/19 Range/Units 23:33 21:48 16:17 WBC 6.24 (4.8-10.8) K/uL RBC 3.74 L (4.7-6.1) M/uL Hgb 11.6 L (14.0-18.0) g/dL Hct 33.8 L (42-52) % MCV 90.4 (80-100) fL MCH 31.0 (25-34) pg MCHC 34.3 (32-36) g/dL RDW Std Deviation 45.7 (36.4-46.3) fL RDW Coeff of Chantal 13.8 (11.5-14.5) % Plt Count 207 (130-400) K/uL MPV 10.6 H (7.4-10.4) fL Sodium (136-145) mmol/L Potassium (3.5-5.1) mmol/L Chloride (98-107) mmol/L Carbon Dioxide (21-32) mmol/L Anion Gap (3-11) BUN (7-18) mg/dl Creatinine (0.6-1.4) mg/dl Est Cr Clr Drug Dosing ml/min Est GFR ( Amer) Est GFR (Non-Af Amer) BUN/Creatinine Ratio (10-20) Glucose (70-99) mg/dl POC Glucose 108 H 87 (70-99) Estimat Average Glucose mg/dl Hemoglobin A1c (4.5-5.6) % Calcium (8.5-10.1) mg/dl 06/17/19 06/17/19 06/17/19 Range/Units 14:05 14:05 14:05 WBC 7.78 (4.8-10.8) K/uL RBC 3.86 L (4.7-6.1) M/uL Hgb 11.9 L (14.0-18.0) g/dL Hct 35.2 L (42-52) % MCV 91.2 (80-100) fL MCH 30.8 (25-34) pg MCHC 33.8 (32-36) g/dL RDW Std Deviation 46.0 (36.4-46.3) fL RDW Coeff of Chantal 13.9 (11.5-14.5) % Plt Count 188 (130-400) K/uL MPV 10.5 H (7.4-10.4) fL Sodium 136 (136-145) mmol/L Potassium 4.1 (3.5-5.1) mmol/L Chloride 105 (98-107) mmol/L Carbon Dioxide 23 (21-32) mmol/L Anion Gap 8.0 (3-11) BUN 17 (7-18) mg/dl Creatinine 1.19 D (0.6-1.4) mg/dl Est Cr Clr Drug Dosing 56.1 ml/min Est GFR ( Amer) 66.5 Est GFR (Non-Af Amer) 57.3 BUN/Creatinine Ratio 14.7 (10-20) Glucose 90 (70-99) mg/dl POC Glucose (70-99) Estimat Average Glucose 117 mg/dl Hemoglobin A1c 5.7 H (4.5-5.6) % Calcium 8.1 L (8.5-10.1) mg/dl PG Care Time/CCT Total # of Minutes Spent Total Time Spent with Patient: Total time spent is greater than 50% in coor dination of care (as documented) at patient's floor/unit and/or counseling patient:
[2019-05-09] MEDS ORDERED: LIDOCAINE HCL 2% 2 ML VIAL/AMP(20MG/ML) INFIL ONE (13:45)
[2019-05-09] MEDS ORDERED: PROPOFOL IV EMULSION 10 MG/ML 20 ML VIAL IV ONE (13:45)
--- NOTE | 2019-05-09 14:26 | Gastroenterology Progress Note ---
Date of Service May 09, 2019 Assessment & Plan (1) Acute GI bleeding: Possible post polypectomy bleeding. [place] today with therapeutic intent. Proc and risks explained which include but not limited to med reaction, bleeding, perforation, aspiration, and missed lesions. acute blood loss anemia---Hgb this am stable colon polyps s/p resection 05/01/19 at [facility] cc f/u GI bleeding HPI Pt did colo prep and no further bleeding. No abd pain. Review of Systems Respiratory: no dyspnea Cardiovascular: no chest pain Physical Exam Constitutional: WD/WN, vitals as above Respiratory: normal respiratory effort, lungs clear to auscultation Cardiovascular: RRR, no murmur, no edema Gastrointestinal (Abdomen): normal bowel sounds, soft, nontender, no hepatosplenomegaly Psychiatric: A+Ox3, euthymic affect Results & Data Vital Signs (Past 12 Hours) Vital Signs Temp Pulse Pulse Resp BP BP Pulse Ox 05/09/19 11:24 36.9 C 86 22 138/78 92 05/09/19 08:00 88 05/09/19 07:18 36.8 C 90 20 137/90 90 05/09/19 03:23 36.9 C 90 20 114/71 91
--- NOTE | 2019-05-09 14:36 | Anesthesiology Consultation ---
Date of Service May 09, 2019 Assessment & Plan (1) Encounter for pre-operative examination: Chart Review Chart Review: Acceptable Risk for Surgery and Patient NOT seen in Pre Admission Testing Consults Requested none History Surgery Operation Date: 05/09/19 10:00 Proposed Procedures p Colonoscopy Dr Yadira May Height/Weight Height: 5 ft 10 in Weight: 93.6 kg Allergies Allergy/AdvReac Type Severity Reaction Status Date / Time No Known Allergies Allergy Verified 05/08/19 09:46 Medications Home Medications Medication Instructions Recorded Confirmed Last Taken acetaminophen 500 mg tablet 1,000 mg PO Q6H PRN tab 09/14/18 05/08/19 Unknown aspirin 81 mg tablet,delayed 81 mg PO DAILY 09/14/18 05/08/19 Unknown release lidocaine 4 % topical patch 1 patch TOP TID PRN 09/14/18 05/08/19 Unknown omega-3 fatty acids 1,000 mg 1,000 mg PO BID 09/14/18 05/08/19 Unknown capsule gabapentin 600 mg PO TID 05/08/19 05/08/19 05/07/19 trolamine salicylate 1 applic TOPICAL BID PRN 05/08/19 05/08/19 Unknown Active Medications Generic Name Dose Route Start Last Admin Trade Name Freq PRN Reason Stop Dose Admin Gabapentin 600 mg 05/08/19 14:00 05/09/19 08:19 Neurontin PO 06/07/19 13:59 600 mg TID TONI Administration Sodium Chloride 1,000 mls @ 80 mls/hr 05/08/19 11:15 05/09/19 13:27 Nss 1000ml IV 06/07/19 11:14 0 mls/hr .[id number] TONI Infusion Famotidine 20 mg/ Syringe 5 mls @ 2.5 mls/min 05/08/19 11:17 05/09/19 10:17 IV 06/07/19 11:16 2.5 mls/min BID TONI Administration NPO Date Last Intake of Fluids: 05/08/19 Time Last Intake of Fluids: 09:00 Date Last Intake of Solids: 05/07/19 Past Medical History Medical History Cervical spondylosis (Chronic) Former smoker (Chronic) Postherpetic neuralgia (Chronic) Lymphoma (Chronic) 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 HTN (hypertension) (Chronic) Polyp of colon Past Family History Family History Father , Age 91 Renal failure Mother Breast cancer Social History Smoking Status: Former smoker tobacco type: cigarettes Smoking End Date: 2000 Hx Alcohol Use: Yes (2-3 beers per day ) Alcohol type: beer alcohol intake frequency: 3 or more drinks per day Alcohol Intake Frequency Comment: 4 beers day Hx Substance Use: No Physical Exam Vital Signs Last Vital Signs Temp 36.8 C 05/09/19 14:25 Pulse 88 05/09/19 14:25 Resp 20 05/09/19 14:25 BP 145/95 H 05/09/19 14:25 Pulse Ox 94 05/09/19 14:25 Testing Laboratory Results 05/09/19 06:11 PT 10.5 Seconds (9.0-12.0) 05/08/19 08:57 INR 1.0 (0.9-1.1) 05/08/19 08:57 APTT 21.0 Seconds (21.0-31.0) 05/08/19 08:57 Hemoglobin A1c 5.7 % (4.5-5.6) H 05/08/19 14:05 Blood Type O Positive 05/08/19 08:57 Antibody Screen NEGATIVE 05/08/19 08:57 05/09/19 06:04 POC Glucose 85
[2019-05-09 14:38] LABS: Hematocrit (blood only) 35.9 % (42-52); Mean Corpuscular Hgb Conc 33.4 g/dL (32-36); Mean Corpuscular Volume 91.6 fL (80-100); Mean Platelet Volume 10.7 fL (7.4-10.4); Platelet Count 209 K/uL (130-400); RDW Coefficient of Variation 14.1 % (11.5-14.5); RDW Standard Deviation 47.2 fL (36.4-46.3); Red Blood Count 3.92 M/uL (4.7-6.1); White Blood Count 6.94 K/uL (4.8-10.8)
[2019-05-09] MEDS ORDERED: ATROPINE SULFATE 0.1 MG/ML 10ML SYR IV PRN (14:39)
[2019-05-09] MEDS ORDERED: ePHEDrine sulfate 50 MG/ML AMP IV PRN (14:39)
--- NOTE | 2019-05-09 15:13 | GI REPORT ---
Patient Name: Sohan Gaytan Procedure Date: 05/09/2019 1:53 PM Date of : 1940 Admit Type: Inpatient Age: 78 Gender: Male Attending MD: Elvin May MD Procedure: Colonoscopy Providers: Elvin May MD Referring MD: Referred Self Indications: Hematochezia, post polypectomy by EMR 05/01/19 at [facility] Medicines: Monitored Anesthesia Care Complications: No immediate complications. Estimated blood loss: None. Estimated Blood Loss: Estimated blood loss: none. Procedure: Pre-Anesthesia Assessment: - The risks and benefits of the procedure and the sedation options and risks were discussed with the patient. All questions were answered and informed consent was obtained. - Patient identification and proposed procedure were verified prior to the procedure by the physician, the nurse and the criminal legal assistant. The procedure was verified in the procedure room. After I obtained informed consent, the scope was passed under direct vision. Throughout the procedure, the patient's blood pressure, pulse, and oxygen saturations were monitored continuously. The Scope was introduced through the anus and advanced to the cecum, identified by appendiceal orifice and ileocecal valve. The colonoscopy was performed without difficulty. The patient tolerated the procedure well. Procedure and risks explained to patient which include but not limited to med reaction, bleeding, perforation, aspiration and missed lesions. Judicious gas insufflation and gas removal done on the way out. The lumen always well visualized when advancing the scope. Washes and suctioning used as needed for good visuzlization of mucosa. Prep was good. Retroflexion in the rectum to look at the distal rectum and anal canal done. Findings: A 8 mm polyp was found in the transverse colon. The polyp was sessile. A single (solitary) large ulcer with clips was found in the cecum. No bleeding was present. Stigmata of recent bleeding present (multiple flat red spots), Two large ulcers with clips were found in the ascending colon.. No bleeding was present. Stigmata of recent bleeding present (multiple flat red spots) were present. A single (solitary) small ulcer was found in the rectum. No bleeding was present. No stigmata of recent bleeding were seen. Internal hemorrhoids were found during retroflexion. The hemorrhoids were large. There is no endoscopic evidence of bleeding in the entire colon. No protuberant visible vessel to cauterize and no active bleeding so no therapeutics done. The exam was otherwise without abnormality on direct and retroflexion views. Impression: - One 8 mm polyp in the transverse colon. - A single (solitary) ulcer in the cecum. - Two ulcers in the ascending colon. - A single (solitary) ulcer in the rectum. - Internal hemorrhoids. - The examination was otherwise normal on direct and retroflexion views. - No specimens collected. Recommendation: - Return patient to [facility] for ongoing care. - Clear liquid diet. Repeat colonoscoy 6 months in [place] per [facility] recommendations. Elvin May M.D. Elvin May MD 05/09/2019 3:13:02 PM This report has been signed electronically. Note Initiated On: 05/09/2019 1:53 PM Number of Addenda: 0 I attest to the content of the Intraoperative Record and orders documented therein, exceptions below {[id number]}
--- NOTE | 2019-05-09 15:21 | Post Operative Brief Note ---
Immediate Post Op Note v1 Date of Surgery May 09, 2019 Pre & Post Diagnosis Operation Date: 05/09/19 10:00 Pre-Op Diagnosis: GI BLEED Post-Op Diagnosis: colon ulcers hemorrhoids Procedure Operation Date: 05/09/19 10:00 Actual Procedures p Colonoscopy(Left) - Elvin May Surgeon Elvin May Clinical Writer see formal report Estimated Blood Loss 0 Findings See Below 3 large ulcers AC/cecum with surrounding clips corresponding to EMR removal of polyps with flat red spots but no protruding visible vessel. TC polyp, hemorrhoids. NO post op pain or problems. Plan clears tonight. If no further bleeding then solid food tomorrow and DC later in the day. Avoid ASA for 2 weeks.
--- NOTE | 2019-05-09 15:22 | Anesthesiology Progress Note ---
Date of Service May 09, 2019 Anesthesia Post Procedure Vital Signs Vital Signs: Temp Pulse Pulse Pulse Resp BP BP 05/09/19 15:16 78 20 136/68 05/09/19 15:03 78 20 120/69 05/09/19 14:25 36.8 C 88 20 145/95 H 05/09/19 11:24 36.9 C 86 22 138/78 05/09/19 08:00 88 05/09/19 07:18 36.8 C 90 20 137/90 05/09/19 03:23 36.9 C 90 20 114/71 05/09/19 02:13 94 H 05/08/19 23:31 36.9 C 93 H 17 112/77 05/08/19 19:09 36.4 C L 80 18 163/97 H 05/08/19 16:00 72 Pulse Ox 05/09/19 15:16 95 05/09/19 15:03 97 05/09/19 14:25 94 05/09/19 11:24 92 05/09/19 08:00 05/09/19 07:18 90 05/09/19 03:23 91 05/09/19 02:13 05/08/19 23:31 91 05/08/19 19:09 90 05/08/19 16:00 Transfer of Care Handoff Completed per policy Notes Mental Status: alert / awake / arousable Patient Amnestic to Procedure: Yes Nausea / Vomiting: adequately controlled Pain: adequately controlled Airway Patency, RR, SpO2: stable & adequate BP & HR: stable & adequate Hydration State: stable & adequate Anesthetic Complications: no major complications apparent and Pt Satisfied with anesthetic care
[2019-05-09] MEDS ORDERED: Nursing to Pharmacy Communication ONE (17:50)
[2019-05-10] MEDS: SODIUM CHLORIDE 0.9% 1000ML 1,000 ML IV SCH (01:02)
[2019-05-10 06:10] LABS: Hematocrit (blood only) 31.6 % (42-52); Hemoglobin 10.6 g/dL (14.0-18.0); Mean Corpuscular Hgb Conc 33.5 g/dL (32-36); Mean Corpuscular Volume 91.6 fL (80-100); Mean Platelet Volume 10.2 fL (7.4-10.4); Platelet Count 188 K/uL (130-400); RDW Standard Deviation 46.8 fL (36.4-46.3); Red Blood Count 3.45 M/uL (4.7-6.1); White Blood Count 4.61 K/uL (4.8-10.8)
[2019-05-10 06:46] LABS: BUN Creatinine Ratio 8.1 (10-20); Calcium 7.9 mg/dl (8.5-10.1); Est GFR (African American) 66.5; Est GFR (Non-African American) 57.3; Potassium 3.8 mmol/L (3.5-5.1)
[2019-05-10] MEDS: GABAPENTIN 600 MG TAB PO SCH ×2 (07:22→13:46)
[2019-05-10] MEDS: FAMOTIDINE 20 MG in SYRINGE 3 ML IV SCH (07:24)
--- NOTE | 2019-05-10 08:11 | Anesthesiology Progress Note ---
Date of Service May 10, 2019 Anesthesia Post Procedure Vital Signs Vital Signs: Temp Pulse Pulse Resp BP BP Pulse Ox 05/10/19 07:04 36.8 C 70 18 137/78 94 05/10/19 03:58 36.5 C 75 18 144/81 H 93 05/10/19 00:00 79 05/09/19 23:21 36.6 C 79 20 158/84 H 91 05/09/19 19:30 36.8 C 80 18 130/80 92 05/09/19 15:46 36.4 C L 86 18 156/82 H 93 05/09/19 15:29 86 20 138/73 95 05/09/19 15:16 78 20 136/68 95 05/09/19 15:03 78 20 120/69 97 05/09/19 14:25 36.8 C 88 20 145/95 H 94 05/09/19 11:24 36.9 C 86 22 138/78 92 Notes Mental Status: alert / awake / arousable and participated in evaluation Nausea / Vomiting: adequately controlled Pain: adequately controlled Airway Patency, RR, SpO2: stable & adequate BP & HR: stable & adequate Hydration State: stable & adequate
--- NOTE | 2019-05-10 11:00 | Discharge Summary ---
Date of Service May 10, 2019 Admission HPI Per Admitting Provider Mr. Gaytan is an 78 year old male with past medical history of herpes zoster with post herpetic neuralgia, DLBCL of the nasopharynx, CKD stage III who presented with rectal bleeding following recent polyp removal at [facility]. Pt. had a colonoscopy with polyp removal at [facility] on 05/01/19; he follows with Dr. Boyd but was referred to [facility] for procedure. Pt. was discharged to home on day of procedure and was doing well throughout course of the week. He had multiple BMs this morning after waking up; pt. noticed pink-red discoloration in the toilet after having his 3-4 BM. He laid down in bed but felt the urge to have another BM. After standing up, he developed dizziness and had a syncopal episode. He denies injury to the any area, including hitting his head during the fall. He laid on the ground until the ambulance arrived. Denied shortness of breath or chest pain prior to fall. Does have left sided ear/neck pain related to post herpetic neuralgia. Denies chest pain, SOB, LE edema, headache or vision changes, N/V, abd pain, dysuria or hematuria. ER course: [facility] was contacted for transfer per Dr. Boyd but does not currently have any beds available. Hemoglobin was stable; hemodynamically stable on labs. Will admit for lab work monitoring/IV fluids and transfer to [facility] if necessary pending further evaluation/workup. Admission Exam Per Admitting Provider General: Resting comfortably in no apparent distress HEENT: NC/AT; PERRLA with EOMI; [place] conjunctiva, MMM. No erythema of posterior pharynx Neck: Supple and nontender; No JVD Cardiac: RRR w/o murmurs, gallops or rubs Lungs: CTA bilaterally; No rhonchi, wheezing, or rales Abdomen: Bowel normoactive X 4; Nontender to palpation Extremities: Warm. No edema present Neuro: No focal weakness Skin: No rash Principal Diagnosis GI bleed following recent polyp removal Discharge Exam General: Resting comfortably in no apparent distress HEENT: NC/AT; PERRLA with EOMI; [place] conjunctiva, MMM. No erythema of posterior pharynx Neck: Supple and nontender Cardiac: RRR Lungs: CTA bilaterally Abdomen: Bowel normoactive X 4; Nontender to palpation Extremities: Warm. No edema present Neuro: No focal weakness Skin: No rash Discharge Data Allergies Allergy/AdvReac Type Severity Reaction Status Date / Time No Known Drug Allergies Allergy Verified 05/16/19 13:26 Consultations 05/08/19 09:57 ED Decision to Admit Stat 05/08/19 10:00 Consult Gastroenterology Routine Procedures Performed Operation Date: 05/09/19 10:00 Actual Procedures p Colonoscopy(Left) - Elvinbree [facility] Course (1) Lower GI bleed: Rectal bleeding following polyp removal at [facility] on 05/01/19 - was not transferred to [place] due to limited bed availability. Occult stool was positive. Hemoglobin level stable, did not require transfusion support. Famotidine 20 mg IV BID - convert to PPI daily at discharge. GI consulted, appreciate input. Colonoscopy on 05/09 showed ulcers related to recent polyp removal, no active bleeding noted. Also has hemorrhoids. Advanced to regular diet prior to discharge. Will need to hold home aspirin for 2 week course. (2) Acute anemia: In setting of GI bleed following polyp removal. Trended CBC twice daily -- has been stable, has not required transfusion sup port. (3) Polyp of colon: As noted above. F/u with GI as outpatient. (4) Syncope: Likely vasovagal episode following multiple BMs with GI bleeding noted; no further episodes noted since admission. Received IV fluids with improvement. Orthostatics were positive on day of admission and following day, now improved. No indication for cardiac work up. (5) Postherpetic neuralgia: Continued Gabapentin 600 mg TID. (6) Lymphoma: H/o DLBCL of nasopharynx in 2014. Follows with Dr. Abebe. (7) Pre-diabetes: Hgb A1C level was 5.7. Did not require SSI coverage, BG were well controlled. (8) CKD (chronic kidney disease), stage III: Renally dosed all meds. Creatinine now improved to baseline. (9) DVT prophylaxis: SCDs; held home Aspirin/pharmacologic ppx due to acute bleed. He was medically stable for discharge on 05/10/19. Total Time Total Time Spent Total Time Spent (In Minutes): >30 minutes Total Time Includes: Examination of the Patient, Discharge Planning, Medication Reconciliation, Communication With Other Providers and Other Discharge Plan Discharge Items Patient Disposition: Home - Self-Care Reason For Visit: GI BLEED Discharge Diagnosis: GI bleed Condition: Good Discharge Goals: Decrease discomfort, Improve disease control, Improve function, Increase independence and Prevent disease Activity: As commented below Exercise/Sports: Gradually increase as tolerated Non-emergency contact: Primary Care Provider Call non-emergency contact if: you have any medication questions, your symptoms worsen, your pain is not controlled and you have a fever Follow-up/Referrals: Lyla Bautista MD [Primary Care Provider] - 05/16/19 1:30 pm (A follow up appointment was made with your PCP, Dr. Bautista, on May 16, at 1:30pm. If you have any questions or need to reschedule, please call the office at [phone]. ) Diet: Regular Addtl Provider Instructions: 1. Lower GI bleed * Bleeding is likely related to recent polyp removal; per colonoscopy on 05/09, bleeding is now resolved. * Please hold home Aspirin for 2 weeks (can resume on May 23, 2019) * Hold NSAIDs (including Aleve, Motrin, Ibuprofen, etc) due to increased risk of bleeding in setting of recent procedure. * Please take a proton pump inhibitor, such as Protonix, once daily. * Please follow up with GI as scheduled in the outpatient clinic. 2. Syncope * Syncopal episode was likely related to dehydration/orthostatic hypotension. * Continue to drink plenty of fluids at home -- at least 8-10 glasses of water per day. 3. Please schedule a follow up with your primary care provider in 7-10 days to discuss this admission. Prescriptions: Discontinued lidocaine 4 % adhesive patch,medicated 1 patch TOP TID PRN (Reason: Shingles) RF: 0 aspirin [Adult Aspirin Regimen] 81 mg tablet,delayed release (DR/EC) 81 mg PO DAILY RF: 0 No Action cholecalciferol (vitamin D3) 1,000 unit tablet PO .Take 2 tablets daily RF: 0 aspirin 81 mg tablet PO .TAKE 1 TABLET DAILY. RF: 0 multivitamin tablet 1 tab PO DAILY RF: 0 gabapentin 600 mg tablet 600 mg PO TID Qty: 90 RF: 0 Stand-Alone Forms: [facility] Discharge Orders: Discharge Order (Routine); Ordered 05/10/19 Ordered By: Mary Thomas Admission Data Admit Date/Time: 05/08/19 09:58 Attending Provider: Willy Casarez Admit Provider: Willy Casarez Primary Care Provider: Lyla Bautista Other Providers: Burke Boyd ; Alondra Retana Service: Telemetry Other Interventions: Discharge Summary Assessment (RN) Last Done: 05/10/19 14:03 Pending Studies at Discharge: No DC Date/Time DO NOT enter until pt leaves facility: 05/10/19 14:23 Supervising Physician Co-Signing Physician Notes Attending Attestation and Discharge Note: Pt seen & examined, chart reviewed, care plan d/w PA Mary Thomas. I agree w/ the [place] components of her discharge documentation. 78yo male s/p recent coloscopy with multiple polyps removed. Presented with BRBPR and mild acute blood loss anemia. Lower GI bleeding was presumed to be from a prior polypectomy site. Underwent GI consultation with [facility] and repeat colonoscopy was performed. All polypectomy sites were noted but by the time of scope there was no active bleeding. He was asked to HOLD his aspirin at time of hospital discharge. Discharge Hb was 10.7. Exam - gen - NAD heart - RRR lungs - CTA b/l abd - soft NT ND BS+ ext - no edema Willy Casarez MD
[2019-05-10 13:23] LABS: Hematocrit (blood only) 32.1 % (42-52); Hemoglobin 10.7 g/dL (14.0-18.0)
== END 2019-05-10 14:23 | disposition home or self-care (01) | DRG 394 ==
LOC: ED 08:35 → 2S 09:58
DX: K91.89 Other postprocedural complications and disorders of digestive system; R73.03 Prediabetes; I12.9 Hypertensive chronic kidney disease with stage 1 through stage 4 chronic kidney disease, or unspecified chronic kidney disease; D62 Acute posthemorrhagic anemia; Z79.82 Long term (current) use of aspirin; N18.3 Chronic kidney disease, stage 3 (moderate); Z87.891 Personal history of nicotine dependence; B02.29 Other postherpetic nervous system involvement; C85.10 Unspecified B-cell lymphoma, unspecified site; K92.2 Gastrointestinal hemorrhage, unspecified

== ENCOUNTER 2022-10-19 10:30 | Inpatient (IN) ==
[2022-10-19] MEDS ORDERED: guaiFENesin 600 MG TABCR PO STA (10:37)
[2022-10-19] MEDS ORDERED: methylPREDNISolone 125 MG/2 ML VIAL IV STA (10:37)
[2022-10-19] MEDS ORDERED: SODIUM CHLORIDE 0.9% 500 ML IV ONE (10:37)
[2022-10-19] MEDS ORDERED: ALBUT/IPRATROP 3MG/0.5MG NEB 3 ML VIAL NEB STA (10:37)
[2022-10-19 11:27] LABS: Basophils # (auto) 0.03 K/uL (0-0.2); Basophils % (auto) 0.3 %; Eosinophils # (auto) 0.03 K/uL (0-0.50); Eosinophils % (auto) 0.3 %; Hematocrit (blood only) 43.5 % (40.1-51.0); Hemoglobin 14.8 g/dl (14.0-18.0); Immature Granulocytes # (auto) 0.07 K/uL (0.00-0.02); Immature Granulocytes % (auto) 0.7 %; Lymphocytes # (auto) 0.58 K/uL (1.2-3.4); Lymphocytes % (auto) 5.7 %; Mean Corpuscular Hemoglobin 31.2 pg (25.0-34.0); Mean Corpuscular Volume 91.6 fL (80.0-100.0); Mean Platelet Volume 10.8 fL (9.4-12.4); Monocytes % (auto) 9.9 %; Neutrophils # (auto) 8.41 K/uL (1.4-6.5); Neutrophils % (auto) 83.1 %; Platelet Count 289 K/uL (130-400); RDW Coefficient of Variation 12.5 % (11.5-14.5); RDW Standard Deviation 41.9 fL (36.4-46.3); Red Blood Count 4.75 M/uL (4.63-6.08); White Blood Count 10.12 K/ul (4.8-10.8)
--- NOTE | 2022-10-19 11:29 | XRay Report ---
XR chest 1V portable HISTORY: 82 years-old Male Chest Pain shortness of breath COMPARISON: Chest radiograph 08/12/2021 TECHNIQUE: AP view of the chest FINDINGS: Cardiac silhouette is enlarged. Suggested emphysema with chronic interstitial coarsening comments pro nounced within the lung bases. Status post removal of the left pectoral Pevzun-b-Buto catheter. Trace pleural effusions are suspected. No pneumothorax. Patchy ill-defined right midlung airspace opacitie s. Degenerative changes of the shoulders and spine. IMPRESSION: 1. Patchy right midlung airspace opacities are suspicious for pneumonia. 2. Cardiomegaly without overt pulmonary edema. 3. Emphysema with chronic interstitial coarsening of the lung bases. ACT 112: Negative or not required by law. The above report was generated using voice recognition software. It may contain grammatical, syntax o r spelling errors. Electronically signed by: Benjamín Tyson M.D. 10/19/2022 11:28 AM
[2022-10-19 11:57] LABS: Troponin I High Sensitivity 25.4 pg/ml (0-20)
[2022-10-19 12:01] LABS: Albumin Globulin Ratio 1.2 (0.9-2); Albumin Level 3.8 gm/dl (3.4-5.0); BUN Creatinine Ratio 14.5 (10-20); Calcium 9.2 mg/dl (8.5-10.1); Creatinine Clr Calc Pharmacy 47.2 ml/min; Est GFR (African American) 57.5 ml/min; Est GFR (Non-African American) 49.6 ml/min; Globulin 3.3 gm/dl (2.5-4.0); Magnesium 1.9 mg/dl (1.7-2.4); Phosphorus 3.1 mg/dl (2.5-4.9); Total Protein 7.1 gm/dl (6.0-8.3)
--- NOTE | 2022-10-19 12:24 | History & Physical Report ---
Date of Service October 19, 2022 Assessment & Plan (1) Community acquired pneumonia: Plan: - 5 days of decreased energy, productive cough, shortness of breath with ambulation, chills. - No bilateral unilateral leg swelling, calf pain, orthopnea, PND. - Without elevated WBC but neutrophil count 8 - CXR suggest a right midlung air. States opacity suspicious for pneumonia. - Patient coming home from home, will - Positive for RSV. (2) Elevated troponin: Plan: - Troponin elevated 25.4, with BNP 94, no history of heart failure or CAD, there is no evidence of pulmonary edema on CXR. - May be elevated in setting of hypoxia, acute pneumonia, however will trend and obtain echo. - Thought was given to the possibility of a PE given the elevated BNP and troponin (? right heart strain) and history of malignancy. without any evidence of pulmonary edema or vascular congestion seen on CXR, however patient does not have any unilateral leg swelling or calf pain, history of DVT or PE, no recent travel for the and is not having any chest pain or palpitations. - His symptoms of decreased energy and lack of appetite, shortness of breath on ambulation, chills and productive cough are more consistent with pneumonia however his procalcitonin 0.20, within normal limits. Would expect this to be elevated with bacterial pneumonia. Decreased oral intake could explain tachycardia, however is not consistent with an elevated BNP patient without any evidence of heart failure. -Ordered D-dimer, if elevated will proceed with chest CTA to rule out PE. 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 - Completed his last chemotherapy in 2016. - Stable, remains under observation status of oncology, sees them yearly last visit January 2021. - Port removed in January. (4) HTN (hypertension): Plan: - BP stable without any meds, continue to monitor hospitalization, allow for degree of hypertension in hospital setting. (5) Postherpetic neuralgia: Plan: - Continue gabapentin. (6) Stage 2 chronic kidney disease: Plan: - Creatinine elevated at 1.31, baseline. - Continue to monitor, avoid nephrotoxins, renally dose meds as it. Plan - Admit to med telemetry. - SCDs and Lovenox for VTE PPx. - Full code. History of Present Illness Chief Complaint: fatigue, dyspnea, chills x 5 days Primary Care Provider: Corby Zuniga DO Sohan Land is an 82-year-old male with past medical history significant for hypertension, large cell B-cell lymphoma, CKDII, cervical spondylosis, and postherpetic neuralgia who is presenting today with shortness of breath. He states since he has had no energy, shortness of breath when ambulating home, chills, productive cough. He has not been eating much since because he just does not have the appetite. He normally ambulates well at home without experiencing any shortness of breath, chest pain, palpitations. He has not had any chest pain or palpitations today, is not having any troubles laying flat and actually states this is the only way he has been able to sleep at home. He has not had any recent sick contacts. He has not had any leg swelling or pain, did not travel out of the area for , no history of blood clots. On presentation is 88% on room air, improved on 2 L NC, borderline tachycardic HR 90s, mildly hypertensive. Labs without leukocytosis but w/ left shift, troponin 25.4, BNP 984. COVID/flu/RSV positive for RSV. CXR with patchy right midlung airspace opacity suspicious for pneumonia, cardiomegaly without overt pulmonary edema, emphysema with chronic interstitial coarsening of lung bases. Allergies Allergy/AdvReac Type Severity Reaction Status Date / Time grass pollen Allergy Mild NASAL Verified 08/27/22 08:00 STUFFINESS Home Medications Medication Instructions Recorded Confirmed Type acetaminophen 325 mg tablet 325 mg PO Q6H PRN fever or pain 08/23/19 08/27/22 History (Tylenol) cholecalciferol (vitamin D3) 25 2,000 units PO QAM 08/23/19 08/27/22 History mcg (1,000 unit) tablet aspirin 81 mg tablet,delayed 81 mg PO QAM 12/17/19 08/27/22 History release loratadine 10 mg tablet (Claritin) 10 mg PO DAILY PRN NASAL STUFFINESS 05/16/21 08/27/22 History gabapentin 600 mg tablet 600 mg PO BID #60 tabs 06/17/22 08/27/22 Rx Past Med/Surg History Medical History Former smoker Lymphoma 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 Polyp of colon Surgical History H/O varicose vein ligation Family History Father , Age 91 Renal failure Mother Breast cancer Denies family history of Ovarian cancer Prostate cancer Myocardial infarction Colorectal cancer Social History Smoking Status: Former smoker Tobacco Type: Cigarettes Hx Alcohol Use: Yes (2-3 beers per day ) Alcohol type: beer Hx Substance Use: No Preferred Language: Vincentian Communication Ability: Effective Visual Impairment: No Limitations Beliefs That Will Affect Care: None marital status: Current Living Situation: Spouse Current Living Situation Comment: current occupational status: retired Feels Safe at Home: Yes caffeine: Yes Dental Care, Regularly: No Physical Activity Frequency: Does not Exercise Seatbelt Use: always Sunscreen Use: No Assistive Devices: Denture - Upper, Denture - Lower and Glasses Review of Systems Review of Systems: Constitutional: chills, fatigue, general weakness, anorexia x 5 days Eyes: No diplopia, no worsening or blurred vision ENT: normal hearing, no trouble swallowing Respiratory: cough with sputum, VALENCIA x days Cardiovascular: No chest pain, tightness or palpitations Abdomen: No pain, nausea, vomiting, diarrhea or constipation : Denies dysuria, hematuria, increased urgency/frequency, urinary retention Musculoskeletal: No joint pain, calf pain, swelling Neurologic: No weakness, numbness/tingling, or balance problems Psychiatric: No anxiety or depression Skin: No rash or itch Physical Exam Physical Exam: General: awake, alert, no apparent distress Head: Normocephalic, atraumatic ENT: PERRL, EOMI, no pharyngeal exudate, mucous membranes moist Chest: expiratory wheezing throughout with decreased lung sounds at b/l lung bases Cardiac: Regular rate and rhythm, no murmur, no JVD, normal peripheral pulses, good capillary refill Abdominal: NABS x 4 quadrants, soft, nontender to palpation, no rebound, guarding or tenderness Extremities: Normal inspection, no peripheral edema or erythema, calfs nontender to palpation Psych: Normal mood and affect Neuro: AAO x 3, strength intact bilaterally and rated 5/5, no motor deficits, speech is clear, no peripheral sensory deficits Skin: no rash or erythema Results & Data Results & Data ([facility]) Vital Signs (Past 12 Hours) Vital Signs Temp Pulse Resp BP Pulse Ox O2 Del Method O2 Flow Rate 10/19/22 12:10 97 H 33 H 95 10/19/22 12:10 145/81 H 10/19/22 12:00 98 H 23 92 10/19/22 11:30 97 H 23 94 10/19/22 11:00 108 H 15 92 10/19/22 10:48 102 H 20 93 10/19/22 12:16 96 H 18 95 Nasal Cannula 2 10/19/22 11:06 88 L Room Air, Nasal Cannula 10/19/22 11:06 37.0 C 96 H 18 156/95 H 94 Nasal Cannula 2 10/19/22 11:06 Nasal Cannula 2 Laboratory Results Abnormal lab results 10/19/22 10/19/22 10/19/22 Range/Units 10:50 10:50 10:50 Neut # (Auto) 8.41 H (1.4-6.5) K/uL Lymph # (Auto) 0.58 L (1.2-3.4) K/uL [place] # (Auto) 1.00 H (0.24-0.82) K/uL Immature Gran # (Auto) 0.07 H (0.00-0.02) K/uL Glucose 171 H (70-99(Fasting)) mg/dl Troponin I High Sens 25.4 H (0-20) pg/ml B-Natriuretic Peptide 984 H (0-100) pg/ml Diagnostic Findings Chest X-Ray 10/19/22 10:37 XR chest 1V portable HISTORY: 82 years-old Male Chest Pain shortness of breath COMPARISON: Chest radiograph 08/12/2021 TECHNIQUE: AP view of the chest FINDINGS: Cardiac silhouette is enlarged. Suggested emphysema with chronic interstitial coarsening comments pronounced within the lung bases. Status post removal of the left pectoral Jxjxbz-l-Aikk catheter. Trace pleural effusions are suspected. No pneumothorax. Patchy ill-defined right midlung airspace opacities. Degenerative changes of the shoulders and spine. IMPRESSION: 1. Patchy right midlung airspace opacities are suspicious for pneumonia. 2. Cardiomegaly without overt pulmonary edema. 3. Emphysema with chronic interstitial coarsening of the lung bases. ACT 112: Negative or not required by law. The above report was generated using voice recognition software. It may contain grammatical, syntax or spelling errors. Electronically signed by: Benjamín Tyson M.D. 10/19/2022 11:28 AM Code Status & VTE Plan Code Status Full Code. Supervising Physician Co-Signing Physician Notes Patient seen and examined, chart reviewed, case discussed with Deann Souza PA-C and I agree with the assessment and plan as above except as otherwise noted Labs and images reviewed 82-year-old male with past medical history of large B-cell lymphoma, CKD 2, postherpetic neuralgia on gabapentin, cervical spondylosis with history of epidural injection for pain control, and hypertension who presents with hypoxia and shortness of breath and he was found to have a right middle lobe pneumonia. On ER assessment hypoxic to 88% requiring nasal cannula oxygen, tachycardic, mildly hypertensive, without leukocytosis, creatinine is 1.31 on admission, Trope with trace elevation at 25.4, BNP elevated at 984, and CXR showing patchy right mid lung airspace opacity suspicious for pneumonia and emphysema/chronic interstitial coarsening of lung bases, cardiomegaly without overt pulmonary edema. Patient does follow with cardiology for history of syncope 2/2 orthostasis, no history of CAD/CHF or anginal symptoms at baseline. Admitting E KG is sinus tachycardia with PVCs, QTC 447, equivocal T waves in V5/V6 without ST segment changes. Procalcitonin is neg. Pt reports he has had a cough, sometimes brings up yellow sputum since . Lung sounds are coarse, without focal change/rales/rhonchi, legs are without pitting edema, HR tachycardic regular. Shortness of breath: Patient with CXR consistent with a right lobar pneumonia; however procalcitonin is negative and patient is with BNP 10x ULN/elevated troponin without evidence of fluid overload, ?Heart strain and & patient with history of malignancy elevating risk of blood clots. No recent travel/leg swelling. D-Dimer obtained, positive --> CTA pended. Continue treatment for suspected acute right middle lobe pneumonia. CAP. [id number] Moderate risk. CAP, continue antibiotic treatment as above. Elevated BNP/troponin: No history of heart failure. Chest x-ray with lobar findings, no evidence of pulmonary edema. Procalcitonin is negative. Neuralgia: Gabapentin continued. PG Care Time/CCT Total # of Minutes Spent Total Time Spent with Patient: Total time spent is greater than 50% in coordination of care (as documented) at patient's floor/unit and/or counseling patient: Coding Level of Care Code 98219 Initial Inpt Care Lvl 3 Diagnoses Community acquired pneumonia J18.9 Elevated troponin R77.8 Large B-cell lymphoma C85.10 HTN (hypertension) I10 Hypertension type: unspecified Postherpetic neuralgia B02.29 Stage 2 chronic kidney disease N18.2 (1) HTN (hypertension) Hypertension type: unspecified Qualified Code(s): I10 - Essential (primary) hypertension
[2022-10-19] MEDS ORDERED: AZITHROMYCIN 500 MG in DEXTROSE 5% 250 ML IV STA (12:34)
[2022-10-19] MEDS ORDERED: cefTRIAXone SODIUM 2,000 MG/70 ML BAG IV STA (12:45)
[2022-10-19 13:19] LABS: Influenza A virus by PCR Negative (Neg); Influenza B virus by PCR Negative (Neg); RSV by PCR Positive (Neg)
[2022-10-19 13:29] LABS: SARS CoV2 RNA(COVID-19) Ceph NEGATIVE (Negative)
[2022-10-19 13:53] LABS: D Dimer 1280 ug/L FEU (0-500)
[2022-10-19] MEDS ORDERED: OPTIRAY 320 500ml IV ONE (15:36)
--- NOTE | 2022-10-19 15:54 | CT Scan Report ---
CT ANGIOGRAPHY OF THE CHEST, PULMONARY EMBOLUS PROTOCOL CLINICAL HISTORY: Shortness of breath. Evaluate for pulmonary embolus. COMPARISON STUDY: Chest radiographs August 12, 2021 and October 19, 2022. PET/CT June 23, 2006. TECHNIQUE: Following IV administration of 107 mL of Optiray, helical axial images of the chest were o btained utilizing the pulmonary embolus protocol. Maximal intensity projections and sagittal and cor onal reformats were viewed on an independent 3D workstation. IV contrast was administered without co mplication. Automated exposure control was utilized for the study. A dose lowering technique was ut ilized adhering to the principles of ALARA. CT DOSE: 531.93 mGycm FINDINGS: No central or lobar pulmonary emboli are identified. Segmental and subsegmental pulmonary arteries are suboptimally assessed due to respiratory motion. Mild cardiomegaly is noted. No pericard ial effusion. Several anterior mediastinal nodules/lymph nodes measure up to 1.3 x 1.1 cm. These have increased in size since prior PET/CT of June 23, 2006. 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 Subpleural left lower lobe opacity with volume loss is unchanged since prior PET/CT. This repres ents round atelectasis. Moderate airspace opacities are noted within the dependent aspects of the rig ht upper and right lower lobes. Central airways are patent. There are secretions within the mainstem bronchi, greater on the right. Emphysema is noted. There is no pneumothorax. No cavitation is present . Multiple pleural plaques are present. A 1.5 cm lateral segment hepatic lesion was present on prior PET. This favors a cyst. IMPRESSION: 1. No central or lobar pulmonary emboli. Remainder of pulmonary arteries suboptimally assessed due to respiratory motion. 2. Moderate right lung airspace opacities suggest pneumonia or aspiration pneumonitis given secretion s within the airways. A follow-up chest CT in 3 months to ensure resolution is recommended. 3. Several mildly enlarged anterior mediastinal lymph nodes/nodules which have increased in size sinc e prior PET/CT. These are indeterminate and can be assessed on follow-up CT 4. Trace left pleural effusion which is likely chronic. Stable subpleural left lower lobe airspace op acity with volume loss consistent with round atelectasis. 5. Emphysema. ACT 112: Negative or not required by law. Electronically signed by: Mihir Huynh M.D. 10/19/2022 3:51 PM
--- NOTE | 2022-10-19 15:59 | Emergency Department Note ---
Impression & Plan RSV infection, Pneumonia, Hypoxia ED Provider Note NAME: KIERAN ETIENNE AGE: 82 SEX: M ARRIVES VIA: Ambulance INFORMANT: Patient, EMS ED PROVIDER(S): Joao Myers MD CHIEF COMPLAINT: Cough, shortness of breath PLAN: Disposition: Admit MEDICAL DECISION MAKING: The patient is a pleasant 82-year-old gentleman with a past medical history of large B-cell lymphoma, CKD, hypertension, prior smoking history who presents to the emergency department via EMS for worsening shortness of breath with cough, congestion, generalized body aches. He was noted to be in the low-mid 80s on room air by EMS. This did improve with nasal cannula. He admits he has not been eating or drinking well but denies any nausea, vomiting or diarrhea. He reports his is admitted to this facility with similar symptoms but is not sure what her diagnosis is. On arrival the patient is uncomfortable mildly dyspneic but no acute distress, afebrile with heart rate in the 90s-100s and O2 saturation improving to 94% on 2 L nasal cannula. He appears clinically dry. Lungs with wheezes and rhonchi of bilateral lung drummond without significant WOB. EKG without overt acute ischemia. CXR demonstrates patchy right midlung airspace opacity suspicious for pneumonia. Note is made of emphysema with chronic interstitial thickening. Patient was treated with steroids and DuoNeb on arrival. WBC, H/H and platelets within normal limits. Chemistry without metabolic acidosis. Electrolytes and LFTs unremarkable. High-sensitivity troponin 25.4, nonspecific. BNP elevated at 980, also nonspecific without prior values for comparison. IVF given with caution. RSV PCR was positive. COVID and influenza PCR's were negative. Procalcitonin was not elevated. Lactic acid 1.1, wnl. Given the patient's symptoms with new oxygen requirement agrees with plan for admission. Case was discussed with Dr. Ashford, [facility] [place], who will evaluate the patient for admission. Further management per admitting team Triage Nursing notes reviewed and agree them. Prior medical records reviewed Vital Signs: reviewed and remarkable for tachycardia, hypoxia. Differential diagnosis: Reactive airway disease, pneumonia, pneumothorax, COPD, CHF, infections, cardiac ischemia, pulmonary embolism, musculoskeletal, gastrointestinal, as well as other pathologies. ER treatment provided: See below. Diagnostics interpreted by me: ECG: Sinus tachycardia with occasional PVCs, 116 bpm, no overt ST elevation or depression, QTC 447, 76. Cardiac Monitoring: An order for continuous cardiac monitoring was placed and demonstrated Sinus tachycardia with occasional PVCs, 116 bpm. Laboratory studies: See below Imaging studies: See below Consultation(s): Case was discussed with Dr. Ashford, [facility] [place], who will evaluate the pat ient for admission. HPI: The patient is a pleasant 82-year-old gentleman with a past medical history of large B-cell lymphoma, CKD, hypertension, prior smoking history who presents to the emergency department via EMS for worsening shortness of breath with cough, congestion, generalized body aches. He was noted to be in the low-mid 80s on room air by EMS. This did improve with nasal cannula. He admits he has not been eating or drinking well but denies any nausea, vomiting or diarrhea. He reports his is admitted to this facility with similar symptoms but is not sure what her diagnosis is. ROS: See above HPI for pertinent positives & negatives. A total of 10 systems reviewed and were otherwise negative. VITALS:See Below PHYSICAL EXAMINATION: GENERAL: Awake, alert, fatigued/uncomfortable-appearing, in no distress HENT: Normocephalic, atraumatic. Oropharynx with dry mucous membranes and otherwise unremarkable. . EYES: Normal conjunctiva. Sclera non-icteric. NECK: Supple. No nuchal rigidity. FROM. No JVD. RESPIRATORY: Wheezes and rhonchi bilateral lung drummond CARDIAC: Regular rate, normal rhythm. Extremities warm and well perfused. Pulses equal. ABDOMEN: Soft, non-distended. No tenderness to palpation. No rebound or guarding. No masses. RECTAL: Deferred. MUSCULOSKELETAL: Chest examination reveals no tenderness. The back is symmetrical on inspection without obvious abnormality. There is no CVA tenderness to palpation. No joint edema. LOWER EXTREMITIES: Calves are equal size bilaterally and non-tender. No edema. No discoloration. NEURO: Normal sensorium. No sensory or motor deficits noted. SKIN: No rash or jaundice noted. 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 Polyp of colon Surgical History H/O varicose vein ligation Family History Father , Age 91 Renal failure Mother Breast cancer Denies family history of Ovarian cancer Prostate cancer Myocardial infarction Colorectal cancer Social History Smoking Status: Former smoker Tobacco Type: Cigarettes Hx Alcohol Use: No Hx Substance Use: No Preferred Language: Nepali Communication Ability: Effective Visual Impairment: No Limitations [employer] Apprentice Required: No Beliefs That Will Affect Care: None marital status: Current Living Situation: Spouse Current Living Situation Comment: current occupational status: retired Feels Safe at Home: Yes Safety Concerns: Feels Safe At This Time caffeine: Yes Dental Care, Regularly: No Physical Activity Frequency: Does not Exercise Seatbelt Use: always Sunscreen Use: No Assistive Devices: Denture - Upper and Denture - Lower Allergies Allergies Allergy/AdvReac Type Severity Reaction Status Date / Time grass pollen Allergy Mild NASAL Verified 08/27/22 08:00 STUFFINESS Home Meds Home Medications Medication Instructions Recorded Confirmed acetaminophen 325 mg tablet 325 mg PO Q6H PRN fever or pain 08/23/19 08/27/22 (Tylenol) cholecalciferol (vitamin D3) 25 2,000 units PO QAM 08/23/19 08/27/22 mcg (1,000 unit) tablet aspirin 81 mg tablet,delayed 81 mg PO QAM 12/17/19 08/27/22 release loratadine 10 mg tablet (Claritin) 10 mg PO DAILY PRN NASAL STUFFINESS 05/16/21 08/27/22 Previous Rx's Medication Instructions Recorded gabapentin 600 mg tablet 600 mg PO BID #60 tabs 06/17/22 Results & Data (ED) Vital Signs Vital Signs - 24 hr 10/19/22 11:06 10/19/22 11:06 10/19/22 11:06 Temperature 37.0 C Temperature Source Oral Pulse Rate 96 H Pulse Rate from SpO2 Sensor Respiratory Rate 18 Respiratory Effort / Characteristics Spontaneous Blood Pressure 156/95 H Blood Pressure Mean 115 Pulse Oximetry 94 88 L Oxygen Delivery Method Nasal Cannula Nasal Cannula Room Air Nasal Cannula Oxygen Flow Rate 2 2 Sepsis Recent Fever Within 48 Hours No Sepsis New/Unexplained Change in Mental Status N/A Sepsis Action Taken by Nursing No Action Required Oxygen Flow Rate - Titration 2 Pulse Oximetry Post Tiitration 94 10/19/22 12:16 10/19/22 10:48 10/19/22 11:00 Temperature Temperature Source Pulse Rate 96 H 102 H 108 H Pulse Rate from SpO2 Sensor 107 H 111 H Respiratory Rate 18 20 15 Respiratory Effort / Characteristics Blood Pressure Blood Pressure Mean Pulse Oximetry 95 93 92 Oxygen Delivery Method Nasal Cannula Oxygen Flow Rate 2 Sepsis Recent Fever Within 48 Hours Sepsis New/Unexplained Change in Mental Status Sepsis Action Taken by Nursing Oxygen Flow Rate - Titration Pulse Oximetry Post Tiitration 10/19/22 11:30 10/19/22 12:00 10/19/22 12:10 Temperature Temperature Source Pulse Rate 97 H 98 H Pulse Rate from SpO2 Sensor 98 H 104 H Respiratory Rate 23 23 Respiratory Effort / Characteristics Blood Pressure 145/81 H Blood Pressure Mean 102 Pulse Oximetry 94 92 Oxygen Delivery Method Oxygen Flow Rate Sepsis Recent Fever Within 48 Hours Sepsis New/Unexplained Change in Mental Status Sepsis Action Taken by Nursing Oxygen Flow Rate - Titration Pulse Oximetry Post Tiitration 10/19/22 12:10 10/19/22 12:30 10/19/22 12:30 Temperature Temperature Source Pulse Rate 97 H 95 H Pulse Rate from SpO2 Sensor 97 H 93 H Respiratory Rate 33 H 20 Respiratory Effort / Characteristics Blood Pressure 139/80 Blood Pressure Mean 99 Pulse Oximetry 95 94 Oxygen Delivery Method Oxygen Flow Rate Sepsis Recent Fever Within 48 Hours Sepsis New/Unexplained Change in Mental Status Sepsis Action Taken by Nursing Oxygen Flow Rate - Titration Pulse Oximetry Post Tiitration Laboratory Data Attestation: I reviewed the patient's lab results. Result diagrams: 10/19/22 10:50 10/19/22 10:50 Lab Results 10/19/22 10/19/22 10/19/22 Range/Units 10:50 10:50 10:50 WBC 10.12 (4.8-10.8) K/ul RBC 4.75 (4.63-6.08) M/uL Hgb 14.8 (14.0-18.0) g/dl Hct 43.5 (40.1-51.0) % MCV 91.6 (80.0-100.0) fL MCH 31.2 (25.0-34.0) pg MCHC 34.0 (32.0-36.0) g/dL RDW Std Deviation 41.9 (36.4-46.3) fL RDW Coeff of Chantal 12.5 (11.5-14.5) % Plt Count 289 (130-400) K/uL MPV 10.8 (9.4-12.4) fL Immature Gran % (Auto) 0.7 % Neut % (Auto) 83.1 % Lymph % (Auto) 5.7 % [place] % (Auto) 9.9 % Eos % (Auto) 0.3 % Baso % (Auto) 0.3 % Neut # (Auto) 8.41 H (1.4-6.5) K/uL Lymph # (Auto) 0.58 L (1.2-3.4) K/uL [place] # (Auto) 1.00 H (0.24-0.82) K/uL Eos # (Auto) 0.03 (0-0.50) K/uL Baso # (Auto) 0.03 (0-0.2) K/uL Immature Gran # (Auto) 0.07 H (0.00-0.02) K/uL D-Dimer (0-500) ug/L FEU Sodium 136 (136-145) mmol/L Potassium 4.0 (3.5-5.1) mmol/L Chloride 100 (98-107) mmol/L Carbon Dioxide 26 (21-32) mmol/L Anion Gap 10 (3-11) BUN 19 (6-23) mg/dl Creatinine 1.31 (0.6-1.4) mg/dl Est Cr Clr Drug Dosing 47.2 ml/min Est GFR ( Amer) 57.5 ml/min Est GFR (Non-Af Amer) 49.6 ml/min BUN/Creatinine Ratio 14.5 (10-20) Glucose 171 H (70-99(Fasting)) mg/dl Calcium 9.2 (8.5-10.1) mg/dl Phosphorus 3.1 (2.5-4.9) mg/dl Magnesium 1.9 (1.7-2.4) mg/dl Total Bilirubin 1.0 (0.2-1.0) mg/dl AST 16 (13-39) U/L ALT 20 (7-52) U/L Alkaline Phosphatase 65 (34-104) U/L Troponin I High Sens 25.4 H (0-20) pg/ml B-Natriuretic Peptide 984 H (0-100) pg/ml Total Protein 7.1 (6.0-8.3) gm/dl Albumin 3.8 (3.4-5.0) gm/dl Globulin 3.3 (2.5-4.0) gm/dl Albumin/Globulin Ratio 1.2 (0.9-2) Lipase 17 (11-82) U/L Procalcitonin (0-0.5) ng/ml SARS-CoV-2 (PCR) (Negative) Influenza Type A (PCR) (Neg) Influenza Type B (PCR) (Neg) RSV (RT-PCR) (Neg) 10/19/22 10/19/22 10/19/22 Range/Units 10:50 11:23 12:15 WBC (4.8-10.8) K/ul RBC (4.63-6.08) M/uL Hgb (14.0-18.0) g/dl Hct (40.1-51.0) % MCV (80.0-100.0) fL MCH (25.0-34.0) pg MCHC (32.0-36.0) g/dL RDW Std Deviation (36.4-46.3) fL RDW Coeff of Chantal (11.5-14.5) % Plt Count (130-400) K/uL MPV (9.4-12.4) fL Immature Gran % (Auto) % Neut % (Auto) % Lymph % (Auto) % [place] % (Auto) % Eos % (Auto) % Baso % (Auto) % Neut # (Auto) (1.4-6.5) K/uL Lymph # (Auto) (1.2-3.4) K/uL [place] # (Auto) (0.24-0.82) K/uL Eos # (Auto) (0-0.50) K/uL Baso # (Auto) (0-0.2) K/uL Immature Gran # (Auto) (0.00-0.02) K/uL D-Dimer 1280 H* (0-500) ug/L FEU Sodium (136-145) mmol/L Potassium (3.5-5.1) mmol/L Chloride (98-107) mmol/L Carbon Dioxide (21-32) mmol/L Anion Gap (3-11) BUN (6-23) mg/dl Creatinine (0.6-1.4) mg/dl Est Cr Clr Drug Dosing ml/min Est GFR ( Amer) ml/min Est GFR (Non-Af Amer) ml/min BUN/Creatinine Ratio (10-20) Glucose (70-99(Fasting)) mg/dl Calcium (8.5-10.1) mg/dl Phosphorus (2.5-4.9) mg/dl Magnesium (1.7-2.4) mg/dl Total Bilirubin (0.2-1.0) mg/dl AST (13-39) U/L ALT (7-52) U/L Alkaline Phosphatase (34-104) U/L Troponin I High Sens (0-20) pg/ml B-Natriuretic Peptide (0-100) pg/ml Total Protein (6.0-8.3) gm/dl Albumin (3.4-5.0) gm/dl Globulin (2.5-4.0) gm/dl Albumin/Globulin Ratio (0.9-2) Lipase (11-82) U/L Procalcitonin 0.18 (0-0.5) ng/ml SARS-CoV-2 (PCR) NEGATIVE (Negative) Influenza Type A (PCR) Negative (Neg) Influenza Type B (PCR) Negative (Neg) RSV (RT-PCR) Positive A* (Neg) Administered Medications Albuterol (Albut/Ipratrop 3mg/0.5mg Neb 3 Ml Vial) 3 ml INH Q6R TONI Stop: 11/18/22 15:59 Last Admin: 10/19/22 19:08 Dose: 3 ml Documented By: Admin: 10/19/22 16:35 Dose: 3 ml Documented By: NAPOLEON Gabapentin (Gabapentin 600 Mg Tab) 600 mg PO BID TONI Stop: 11/18/22 20:59 Last Admin: 10/19/22 21:25 Dose: 600 mg Documented By: JS Guaifenesin (Guaifenesin 600 Mg Tabcr) 1,200 mg PO BID TONI Stop: 11/18/22 20:59 Last Admin: 10/19/22 21:25 Dose: 1,200 mg Documented By: IVY Discontinued Medications Albuterol (Albut/Ipratrop 3mg/0.5mg Neb 3 Ml Vial) 3 ml NEB NOW STA; Protocol Stop: 10/19/22 10:38 Last Admin: 10/19/22 10:56 Dose: 3 ml Documented By: SONIA Guaifenesin (Guaifenesin 600 Mg Tabcr) 600 mg PO NOW STA Stop: 10/19/22 10:38 Last Admin: 10/19/22 10:56 Dose: 600 mg Documented By: SONIA Sodium Chloride (Nss) 500 mls @ 999 mls/hr IV .Q31M ONE Stop: 10/19/22 11:07 Last Infusion: 10/19/22 17:19 Dose: 0 mls/hr Documented By: Admin: 10/19/22 11:04 Dose: 999 mls/hr Documented By: SONIA Ceftriaxone Sodium (Rocephin) 2,000 mg in 70 mls @ 100 mls/hr IV NOW STA; Protocol Stop: 10/19/22 13:26 Last Infusion: 10/19/22 17:19 Dose: 0 mls/hr Documented By: Admin: 10/19/22 13:06 Dose: 100 mls/hr Documented By: SONIA Azithromycin 500 mg/ Dextrose 255 mls @ 127.5 mls/hr IV NOW STA Stop: 10/19/22 14:33 Last Infusion: 10/19/22 17:18 Dose: 0 mls/hr Documented By: Admin: 10/19/22 13:40 Dose: 127.5 mls/hr Documented By: KIANA Ioversol (Optiray 320 500ml) 107 ml IV ONCE ONE Stop: 10/19/22 15:37 Last Admin: 10/19/22 15:37 Dose: 107 ml Documented By: MALCOLM Methylprednisolone (Methylprednisolone 125 Mg/2 Ml Vial) 125 mg IV NOW STA Stop: 10/19/22 10:38 Last Admin: 10/19/22 10:56 Dose: 125 mg Documented By: SONIA Imaging Data Radiologist's Impression: Chest X-Ray 10/19/22 10:37 XR chest 1V portable HISTORY: 82 years-old Male Chest Pain shortness of breath COMPARISON: Chest radiograph 08/12/2021 TECHNIQUE: AP view of the chest FINDINGS: Cardiac silhouette is enlarged. Suggested emphysema with chronic interstitial coarsening comments pronounced within the lung bases. Status post removal of the left pectoral Quiyit-d-Kolr catheter. Trace pleural effusions are suspected. No pneumothorax. Patchy ill-defined right midlung airspace opacities. Degenerative changes of the shoulders and spine. IMPRESSION: 1. Patchy right midlung airspace opacities are suspicious for pneumonia. 2. Cardiomegaly without overt pulmonary edema. 3. Emphysema with chronic interstitial coarsening of the lung bases. ACT 112: Negative or not required by law. The above report was generated using voice recognition software. It may contain grammatical, syntax or spelling errors. Electronically signed by: Benjamín Tyson M.D. 10/19/2022 11:28 AM Discharge Plan Visit Data Chief Complaint: Shortness of Breath/Dyspnea ED Provider: Joao Myers Discharge Problem: RSV infection, Pneumonia, Hypoxia Patient Disposition: Admitted As Inpatient Discharge Instructions Interventions: ED Discharge Assessment Last Done: 10/19/22 16:00
[2022-10-19] MEDS ORDERED: ALBUT/IPRATROP 3MG/0.5MG NEB 3 ML VIAL NEB PRN (16:00)
[2022-10-19] MEDS ORDERED: LORATADINE 10 MG TAB PO PRN (16:00)
[2022-10-19] MEDS ORDERED: ALUMINUM/MAGNESIUM SUSP 30 ML UDC PO PRN (16:00)
[2022-10-19] MEDS ORDERED: POLYETHYLENE (MIRALAX) 17 GM PACK PO PRN (16:00)
[2022-10-19] MEDS ORDERED: ONDANSETRON INJ 2 MG/ML 2 ML VIAL IV PRN (16:00)
[2022-10-19] MEDS ORDERED: ACETAMINOPHEN 325 MG TAB PO PRN (16:00)
--- NOTE | 2022-10-19 16:25 | Electrocardiogram Report ---
Test Reason : Blood Pressure : / mmHG Vent. Rate : 116 BPM Atrial Rate : 127 BPM P-R Int : 154 ms QRS Dur : 076 ms QT Int : 322 ms P-R-T Axes : 032 -42 005 degrees QTc Int : 447 ms Sinus tachycardia with occasional Premature ventricular complexes and premature atrial complexes Left axis deviation T wave abnormality, consider anterior ischemia Poor R wave progression, consider anterior PR vs. lead placement vs. LVH Abnormal ECG When compared with ECG of 12-AUG-2021 13:20, Confirmed by Samuel Muniz ([id number]) on 10/19/2022 4:25:15 PM Referred By: Confirmed By:Leonardo Muniz
[2022-10-19] MEDS: ALBUT/IPRATROP 3MG/0.5MG NEB 3 ML VIAL INH SCH ×2 (16:35→19:08)
[2022-10-19] MEDS: GABAPENTIN 600 MG TAB PO SCH (21:25)
[2022-10-19] MEDS: guaiFENesin 600 MG TABCR PO SCH (21:25)
[2022-10-20] MEDS: ALBUT/IPRATROP 3MG/0.5MG NEB 3 ML VIAL INH SCH ×4 (00:12→19:47)
[2022-10-20 03:13] LABS: Basophils # (auto) 0.01 K/uL (0-0.2); Basophils % (auto) 0.1 %; Hematocrit (blood only) 36.7 % (40.1-51.0); Hemoglobin 12.8 g/dl (14.0-18.0); Immature Granulocytes # (auto) 0.04 K/uL (0.00-0.02); Immature Granulocytes % (auto) 0.5 %; Lymphocytes # (auto) 0.54 K/uL (1.2-3.4); Lymphocytes % (auto) 6.1 %; Mean Corpuscular Hemoglobin 31.3 pg (25.0-34.0); Mean Corpuscular Hgb Conc 34.9 g/dL (32.0-36.0); Mean Corpuscular Volume 89.7 fL (80.0-100.0); Mean Platelet Volume 10.6 fL (9.4-12.4); Monocytes # (auto) 0.53 K/uL (0.24-0.82); Neutrophils # (auto) 7.68 K/uL (1.4-6.5); Neutrophils % (auto) 87.3 %; Platelet Count 267 K/uL (130-400); RDW Coefficient of Variation 12.5 % (11.5-14.5); RDW Standard Deviation 41.1 fL (36.4-46.3); Red Blood Count 4.09 M/uL (4.63-6.08)
[2022-10-20 03:38] LABS: BUN Creatinine Ratio 21.4 (10-20); Calcium 8.5 mg/dl (8.5-10.1); Creatinine Clr Calc Pharmacy 52.9 ml/min; Est GFR (Non-African American) 56.9 ml/min; Potassium 4.2 mmol/L (3.5-5.1)
[2022-10-20] MEDS ORDERED: cefTRIAXone SODIUM 1,000 MG in DEXTROSE 5% 50 ML IV SCH (09:00)
[2022-10-20] MEDS: guaiFENesin 600 MG TABCR PO SCH ×2 (09:21→21:30)
[2022-10-20] MEDS: GABAPENTIN 600 MG TAB PO SCH ×2 (09:21→21:30)
[2022-10-20] MEDS: ASPIRIN 81 MG ECTAB PO SCH (09:21)
[2022-10-20] MEDS: CHOLECALCIFEROL 1,000 UNITS 25 MCG TAB PO SCH (09:21)
--- NOTE | 2022-10-20 09:42 | XCELERA ---
[id number]
--- NOTE | 2022-10-20 10:44 | Cardiology Consultation ---
Date of Consultation October 20, 2022 Assessment & Plan (1) Elevated troponin: (2) Hypoxia: (3) Cardiomyopathy: (4) Ventricular tachycardia: Plan 1. Hypoxia: Most likely related to his pulmonary findings. However, he did have a notably elevated BNP in overall LV systolic function is not entirely normal. His lung examination is benign and does not appear to have significant peripheral edema. He actually reported feeling better lying in a supine position than sitting up which would speak against significant pulmonary edema as well. No pulmonary edema mentioned on his imaging studies. However, I would have a low threshold for attempting some diuresis should his pulmonary symptoms not improved. 2. Elevated troponin: Very mild elevation. Undoubtedly related to his presenting hypoxemia. I do not think this represents an acute coronary syndrome would not pursue this further. 3. Cardiomyopathy: Overall LV function appeared sub normal on echocardiogram. Does have an element of breathing difficulty at baseline but this is longstanding in nature and likely related to his underlying emphysema. I think we have a better understanding of his symptoms once he resolves his acute pulmonary infection. No current symptoms suggestive of significant ischemia or angina. I think going to recommend institution of beta-blockade both with his mildly reduced LV systolic function as well as his ventricular ectopy and brief run of VT. We can reassess LV function the outpatient setting once his current illness has resolved. If he continues to have reduced LV systolic function he will need an evaluation for ischemic heart disease. 4. Ventricular tachycardia: He had a very brief episode of monomorphic VT. This lasted 2-3 seconds. No symptoms. He was in bed at the time. He has frequent ventricular ectopy. On an outpatient Holter monitor last year he had 5% ventricular ectopy. No VT was noted at that time. He likely has an element of coronary disease, but does not complain of significant angina or chest pain. As noted above I think we will simply start him on beta-blockade at this time. 5. Abnormal EKG: He does have new T-wave inversions in the anterior precordial leads. Likely related to his tachycardia and acute illness. Again, no evidence of ongoing ischemia at this point. Undoubtedly he has some underlying coronary disease given his demographics and comorbidities. I think once he resolves his acute illness we can see him in the outpatient setting and determine if evaluation for ischemic heart disease is necessary. 6. Syncope: Remote. He has been evaluated in the cardiology clinic for episodes of syncope. It is not clear from his description of the symptoms with her he truly lost consciousness. He seems to have some disability involving his lower extremities and often times slumped to the ground. Based on his descri ption of the symptoms I think this is unlikely to be cardiac. History of Present Illness Reason for Consultation: Ventricular tachycardia, abnormal EKG Requesting Physician: Km Attending Physician: Jorge Luis Barbour MD History of Present Illness The patient is an 82-year-old gentleman without a known history of cardiac disease who presented to the hospital with symptoms of worsening fatigue, anorexia and breathing difficulty. The patient states that his symptoms began around gi. He had a poor appetite. The following day he was able to perform his usual activities but became more fatigued and continue to have some anorexia. The following day he felt terrible and characterizes as being very tired, fatigued and having a progressive cough. He did have some dyspnea, but he did not feel this was a prominent symptom. He presented to the emergency room for evaluation and is felt to have an atypical pneumonia. The patient is being monitored in the emergency room and this morning was noted to have an episode of nonsustained ventricular tachycardia. Patient states in general he is fairly sedentary. He performs routine activity at home. He go shopping and mows his yd with a riding mower. For extended out in his he requires use of a walker. He does have some limiting dyspnea at times if he overdoes it. He has not had orthopnea and in fact recently states that lying down helps his cough. He did not report symptoms of dizziness or lightheadedness, but did report some episodes of syncope. These are fairly characteristic in that they occur after standing for long periods of time. He feels that he has poor circulation in his legs and he needs to continuously move his legs. If he stands stationary for a while he gets somewhat weak. On multiple occasions he has gotten we cannot that he slumped his to the ground. It is unclear if he has actually lost consciousness during these episodes. Currently he feels that his breathing is good and he is anxious for discharge. He denies any sense of palpitations this morning. No dizziness this morning. No symptoms of chest discomfort. He did not describe any worsening lower ex tremity edema or weight gain recently. Allergies Allergy/AdvReac Type Severity Reaction Status Date / Time grass pollen Allergy Mild NASAL Verified 08/27/22 08:00 STUFFINESS Home Medications Medication Instructions Recorded Confirmed Type acetaminophen 325 mg tablet 325 mg PO Q6H PRN fever or pain 08/23/19 08/27/22 History (Tylenol) cholecalciferol (vitamin D3) 25 2,000 units PO QAM 08/23/19 08/27/22 History mcg (1,000 unit) tablet aspirin 81 mg tablet,delayed 81 mg PO QAM 12/17/19 08/27/22 History release loratadine 10 mg tablet (Claritin) 10 mg PO DAILY PRN NASAL STUFFINESS 05/16/21 08/27/22 History gabapentin 600 mg tablet 600 mg PO BID #60 tabs 06/17/22 08/27/22 Rx Patient History Medical History (Updated 10/20/22 @ 10:57 by Samuel Muniz MD) Former smoker Lymphoma 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 Polyp of colon Surgical History H/O varicose vein ligation Family History Father , Age 91 Renal failure Mother Breast cancer Denies family history of Ovarian cancer Prostate cancer Myocardial infarction Colorectal cancer Social History Smoking Status: Former smoker Tobacco Type: Cigarettes Hx Alcohol Use: No Hx Substance Use: No Preferred Language: Ukrainian Communication Ability: Effective Visual Impairment: No Limitations 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 No recent fevers or chills. No palpitations. Physical Exam Physical Exam: The patient is alert and oriented. Mood and affect appeared normal. He answered all questions appropriately. HEENT: Pupils are equal and reactive to light and accommodation. Extraocular movements are intact. The sclerae are anicteric. Neuro: Cranial nerves intact Lungs: Clear to auscultation bilaterally. He has good air movement without use of accessory muscles. No rales. Some expiratory wheezing. Cardiac: Heart demonstrates a regular rate and rhythm with occasional ectopy. Normal S1 and S2. No murmurs on examination. Abdomen: Nondistended. Nontender. Pulses: The patient has palpable radial pulses bilaterally that are equal in intensity Extremities: There was no evidence of hypoperfusion. There is no cyanosis or clubbing. There is no edema. Skin: I did not appreciate any rashes on examination today. Results & Data ([facility] [place]) Vital Signs (Past 12 Hours) Vital Signs Temp Pulse Pulse Resp BP BP Pulse Ox 10/20/22 09:30 104 H 14 93 10/20/22 09:00 104 H 25 H 90 10/20/22 08:30 96 H 17 92 10/20/22 08:00 96 H 91 10/20/22 07:50 148/88 H 10/20/22 07:50 98 H 93 10/20/22 07:53 10/20/22 07:30 94 H 15 148/88 H 10/20/22 07:00 79 19 93 10/20/22 06:30 83 19 91 10/20/22 06:00 81 20 92 10/20/22 07:25 121 H 20 95 10/19/22 23:00 36.9 C 99 H 22 129/76 90 O2 Del Method O2 Flow Rate 10/20/22 09:30 Nasal Cannula 2 10/20/22 09:00 Nasal Cannula 2 10/20/22 08:30 2 10/20/22 08:00 2 10/20/22 07:50 10/20/22 07:50 10/20/22 07:53 Nasal Cannula 2 10/20/22 07:30 10/20/22 07:00 10/20/22 06:30 10/20/22 06:00 10/20/22 07:25 Nasal Cannula 2 10/19/22 23:00 Nasal Cannula 2 Laboratory Results Abnormal Lab Results 10/19/22 10/19/22 10/19/22 10:50 10:50 10:50 WBC 10.12 RBC 4.75 Hgb 14.8 Hct 43.5 MCV 91.6 MCH 31.2 MCHC 34.0 RDW Std Deviation 41.9 RDW Coeff of Chantal 12.5 Plt Count 289 MPV 10.8 Immature Gran % (Auto) 0.7 Neut % (Auto) 83.1 Lymph % (Auto) 5.7 Bucks % (Auto) 9.9 Eos % (Auto) 0.3 Baso % (Auto) 0.3 Neut # (Auto) 8.41 H Lymph # (Auto) 0.58 L Bucks # (Auto) 1.00 H Eos # (Auto) 0.03 Baso # (Auto) 0.03 Immature Gran # (Auto) 0.07 H D-Dimer Sodium 136 Potassium 4.0 Chloride 100 Carbon Dioxide 26 Anion Gap 10 BUN 19 Creatinine 1.31 Est Cr Clr Drug Dosing 47.2 Est GFR ( Amer) 57.5 Est GFR (Non-Af Amer) 49.6 BUN/Creatinine Ratio 14.5 Glucose 171 H Lactate Calcium 9.2 Phosphorus 3.1 Magnesium 1.9 Total Bilirubin 1.0 AST 16 ALT 20 Alkaline Phosphatase 65 Troponin I High Sens 25.4 H B-Natriuretic Peptide 984 H Total Protein 7.1 Albumin 3.8 Globulin 3.3 Albumin/Globulin Ratio 1.2 Lipase 17 Procalcitonin TSH SARS-CoV-2 (PCR) Influenza Type A (PCR) Influenza Type B (PCR) RSV (RT-PCR) 10/19/22 10/19/22 10/19/22 10:50 11:23 12:15 WBC RBC Hgb Hct MCV MCH MCHC RDW Std Deviation RDW Coeff of Chantal Plt Count MPV Immature Gran % (Auto) Neut % (Auto) Lymph % (Auto) Bucks % (Auto) Eos % (Auto) Baso % (Auto) Neut # (Auto) Lymph # (Auto) Bucks # (Auto) Eos # (Auto) Baso # (Auto) Immature Gran # (Auto) D-Dimer 1280 H* Sodium Potassium Chloride Carbon Dioxide Anion Gap BUN Creatinine Est Cr Clr Drug Dosing Est GFR ( Amer) Est GFR (Non-Af Amer) BUN/Creatinine Ratio Glucose Lactate Calcium Phosphorus Magnesium Total Bilirubin AST ALT Alkaline Phosphatase Troponin I High Sens B-Natriuretic Peptide Total Protein Albumin Globulin Albumin/Globulin Ratio Lipase Procalcitonin 0.18 TSH SARS-CoV-2 (PCR) NEGATIVE Influenza Type A (PCR) Negative Influenza Type B (PCR) Negative RSV (RT-PCR) Positive A* 10/19/22 10/19/22 10/20/22 12:46 20:29 02:53 WBC RBC Hgb Hct MCV MCH MCHC RDW Std Deviation RDW Coeff of Chantal Plt Count MPV Immature Gran % (Auto) Neut % (Auto) Lymph % (Auto) Bucks % (Auto) Eos % (Auto) Baso % (Auto) Neut # (Auto) Lymph # (Auto) Bucks # (Auto) Eos # (Auto) Baso # (Auto) Immature Gran # (Auto) D-Dimer Sodium Potassium Chloride Carbon Dioxide Anion Gap BUN Creatinine Est Cr Clr Drug Dosing Est GFR ( Amer) Est GFR (Non-Af Amer) BUN/Creatinine Ratio Glucose Lactate 1.1 Calcium Phosphorus Magnesium Total Bilirubin AST ALT Alkaline Phosphatase Troponin I High Sens 18.7 D 20.0 B-Natriuretic Peptide Total Protein Albumin Globulin Albumin/Globulin Ratio Lipase Procalcitonin TSH SARS-CoV-2 (PCR) Influenza Type A (PCR) Influenza Type B (PCR) RSV (RT-PCR) 10/20/22 10/20/22 10/20/22 02:53 02:53 02:53 WBC 8.80 RBC 4.09 L Hgb 12.8 L Hct 36.7 L MCV 89.7 MCH 31.3 MCHC 34.9 RDW Std Deviation 41.1 RDW Coeff of Chantal 12.5 Plt Count 267 MPV 10.6 Immature Gran % (Auto) 0.5 Neut % (Auto) 87.3 Lymph % (Auto) 6.1 Bucks % (Auto) 6.0 Eos % (Auto) 0.0 Baso % (Auto) 0.1 Neut # (Auto) 7.68 H Lymph # (Auto) 0.54 L Bucks # (Auto) 0.53 Eos # (Auto) 0.00 Baso # (Auto) 0.01 Immature Gran # (Auto) 0.04 H D-Dimer Sodium 132 L Potassium 4.2 Chloride 101 Carbon Dioxide 24 Anion Gap 7 BUN 25 H Creatinine 1.17 Est Cr Clr Drug Dosing 52.9 Est GFR ( Amer) 66.0 Est GFR (Non-Af Amer) 56.9 BUN/Creatinine Ratio 21.4 H Glucose 198 H Lactate Calcium 8.5 Phosphorus Magnesium 2.0 Total Bilirubin AST ALT Alkaline Phosphatase Troponin I High Sens B-Natriuretic Peptide Total Protein Albumin Globulin Albumin/Globulin Ratio Lipase Procalcitonin 0.15 TSH SARS-CoV-2 (PCR) Influenza Type A (PCR) Influenza Type B (PCR) RSV (RT-PCR) 10/20/22 10/20/22 02:53 09:38 WBC RBC Hgb Hct MCV MCH MCHC RDW Std Deviation RDW Coeff of Chantal Plt Count MPV Immature Gran % (Auto) Neut % (Auto) Lymph % (Auto) Bucks % (Auto) Eos % (Auto) Baso % (Auto) Neut # (Auto) Lymph # (Auto) Bucks # (Auto) Eos # (Auto) Baso # (Auto) Immature Gran # (Auto) D-Dimer Sodium Potassium Chloride Carbon Dioxide Anion Gap BUN Creatinine Est Cr Clr Drug Dosing Est GFR ( Amer) Est GFR (Non-Af Amer) BUN/Creatinine Ratio Glucose Lactate Calcium Phosphorus Magnesium Total Bilirubin AST ALT Alkaline Phosphatase Troponin I High Sens 18.6 B-Natriuretic Peptide Total Protein Albumin Globulin Albumin/Globulin Ratio Lipase Procalcitonin TSH < 0.010 L SARS-CoV-2 (PCR) Influenza Type A (PCR) Influenza Type B (PCR) RSV (RT-PCR) Diagnostic Findings Chest x-ray concerning for right middle lobe infiltrate Chest CTA did not demonstrate any pulmonary emboli. Multiple right lung airspace opacity suggestive of pneumonia.Enlarged anterior mediastinal lymph nodes.Emphysema Echocardiogram demonstrated borderline reduced LV systolic function with an ejection fraction of 50%. Mild right ventricular dilation. No significant valvular heart disease. ECG Additional Comments: EKG demonstrated sinus tachycardia with occasional PVCs. T-wave inversions in the anterior precordial leads. PG Care Time/CCT Total # of Minutes Spent Total Time Spent with Patient: Total time spent is greater than 50% in coordination of care (as documented) at patient's floor/unit and/or counseling patient: Coding Level of Care Code 21058 Initial Inpt Care Lvl 3 Diagnoses Elevated troponin R77.8 Hypoxia R09.02 Cardiomyopathy I42.9 Ventricular tachycardia I47.20
--- NOTE | 2022-10-20 11:26 | Electrocardiogram Report ---
Test Reason : Blood Pressure : / mmHG Vent. Rate : 103 BPM Atrial Rate : 103 BPM P-R Int : 154 ms QRS Dur : 086 ms QT Int : 354 ms P-R-T Axes : 036 -37 -05 degrees QTc Int : 463 ms Poor data quality, interpretation may be adversely affected Sinus tachycardia with occasional Premature ventricular complexes Possible Left atrial enlargement Left axis deviation T wave abnormality, consider anterior ischemia Abnormal ECG When compared with ECG of 19-OCT-2022 10:43, No significant change was found Confirmed by Samuel Muniz ([id number]) on 10/20/2022 11:26:34 AM Referred By: REFERRED SELF Confirmed By:Leonardo Muniz
--- NOTE | 2022-10-20 12:46 | Hospitalist Progress Note ---
Date of Service October 20, 2022 Assessment & Plan (1) Community acquired pneumonia: Plan: - 5 days of decreased energy, productive cough, shortness of breath with ambulation, chills. - No bilateral unilateral leg swelling, calf pain, orthopnea, PND. -No PE on CTA Pneumonia- RSV - being treated w dual abx- - Patient coming home from home, will - Positive for RSV. Like;ly incidental- RSV pneumonia uncommon in adults (2) Elevated troponin: Plan: - w 10 sec NSVT today Troponin elevated 25.4, with BNP 94, no history of heart failure or CAD, there is no evidence of pulmonary edema on CXR. - May be elevated in setting of hypoxia, acute pneumonia, however will trend and obtain echo. D/W Dr Muniz cardiology - appreciate his consult-- likely some HFrEf - f/u TTE putpatient- start coreg low dose - ttrate up * RSV came back positive on admission 10/19. 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 - Completed his last chemotherapy in 2015. 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 - Port removed in January. (4) HTN (hypertension): Plan: - BP stable without any meds, continue to monitor hospitalization, allow for degree of hypertension in hospital setting. (5) Postherpetic neuralgia: Plan: - Continue gabapentin. (6) Stage 2 chronic kidney disease: Plan: - Creatinine elevated at 1.31, baseline. - Continue to monitor, avoid nephrotoxins, renally dose meds as it. Plan - Admit to med telemetry. Doing spotdockat hops day 2- still hypoxic- watch on tele - SCDs and Lovenox for VTE PPx. - Full code. Admission and Anticipated Discharge Date Admission Date: October 19, 2022 Subjective SEEN at 11 am in ED while waiting for bed V cheerful and talkative Says tired as woken up many times at night cough better but still there and productive Used walker w PT this am- did fine. No cp/ No baseline VALENCIA- was dyspneic on walking w PT today No PND/ orthopnea, unaided steady gait at home, no falls Denies dizziness then , or at home. 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 b/l Ext - L eft pretibial one plus edema, R no edema Results & Data Results & Data ([facility]) Vital Signs (Past 12 Hours) Vital Signs Pulse Pulse Resp BP Pulse Ox Pulse Ox Pulse Ox 10/20/22 12:06 99 H 20 94 10/20/22 11:20 92 92 10/20/22 09:30 104 H 14 93 10/20/22 09:00 104 H 25 H 90 10/20/22 08:30 96 H 17 92 10/20/22 08:00 96 H 91 10/20/22 07:50 148/88 H 10/20/22 07:50 98 H 93 10/20/22 07:53 10/20/22 07:30 94 H 15 148/88 H 10/20/22 07:00 79 19 93 10/20/22 06:30 83 19 91 10/20/22 06:00 81 20 92 10/20/22 07:25 121 H 20 95 Pulse Ox O2 Del Method O2 Flow Rate O2 Flow Rate O2 Flow Rate O2 Flow Rate 10/20/22 12:06 Nasal Cannula 3 10/20/22 11:20 80 L 3 3 3 10/20/22 09:30 Nasal Cannula 2 10/20/22 09:00 Nasal Cannula 2 10/20/22 08:30 2 10/20/22 08:00 2 10/20/22 07:50 10/20/22 07:50 10/20/22 07:53 Nasal Cannula 2 10/20/22 07:30 10/20/22 07:00 10/20/22 06:30 10/20/22 06:00 10/20/22 07:25 Nasal Cannula 2 PG Care Time/CCT Total # of Minutes Spent Total Time Spent with Patient: Total time spent is greater than 50% in coordination of care (as documented) at patient's floor/unit and/or counseling patient: Coding Level of Care Code 30255 Subseq Hosp Care Lvl 3 Diagnoses Community acquired pneumonia J18.9 Elevated troponin R77.8 Large B-cell lymphoma C85.10 HTN (hypertension) I10 Hypertension type: unspecified Postherpetic neuralgia B02.29 Stage 2 chronic kidney disease N18.2 (1) HTN (hypertension) Hypertension type: unspecified Qualified Code(s): I10 - Essential (primary) hypertension
[2022-10-20] MEDS: cefTRIAXone SODIUM 2,000 MG in DEXTROSE 5% 50 ML IV SCH (13:59)
[2022-10-20] MEDS: carvediloL 3.125 MG TAB PO SCH ×2 (13:59→21:31)
[2022-10-20] MEDS: AZITHROMYCIN 500 MG in DEXTROSE 5% 250 ML IV SCH (15:12)
[2022-10-21] MEDS: ALBUT/IPRATROP 3MG/0.5MG NEB 3 ML VIAL INH SCH ×4 (00:47→19:19)
[2022-10-21] MEDS: carvediloL 3.125 MG TAB PO SCH (08:21)
[2022-10-21] MEDS: guaiFENesin 600 MG TABCR PO SCH ×2 (08:21→22:41)
[2022-10-21] MEDS: ASPIRIN 81 MG ECTAB PO SCH (08:21)
[2022-10-21] MEDS: CHOLECALCIFEROL 1,000 UNITS 25 MCG TAB PO SCH (08:21)
[2022-10-21] MEDS: GABAPENTIN 600 MG TAB PO SCH ×2 (08:21→22:40)
[2022-10-21] MEDS: cefTRIAXone SODIUM 2,000 MG in DEXTROSE 5% 50 ML IV SCH (15:25)
[2022-10-21] MEDS: AZITHROMYCIN 500 MG in DEXTROSE 5% 250 ML IV SCH (15:58)
--- NOTE | 2022-10-21 18:21 | Hospitalist Progress Note ---
Date of Service October 21, 2022 Assessment & Plan (1) Community acquired pneumonia: Plan: - 5 days of decreased energy, productive cough, shortness of breath with ambulation, chills. - No bilateral unilateral leg swelling, calf pain, orthopnea, PND. -No PE on CTA Pneumonia- RSV - being treated w dual abx- - Patient coming home from home, will - Positive for RSV. Like;ly incidental- RSV pneumonia uncommon in adults (2) Elevated troponin: Plan: - w 10 sec NSVT10/20 Troponin elevated 25.4, with BNP 94, no history of heart failure or CAD, there is no evidence of pulmonary edema on CXR. - May be elevated in setting of hypoxia, acute pneumonia, however will trend and obtain echo. D/W Dr Muniz cardiology 10/20 appreciate his consult-- likely some HFrEf - f/u TTE putpatient- start coreg low dose - ttrate up today * RSV came back positive on admission 10/19. 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 - Completed his last chemotherapy in 2015. 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 - Port removed in January. (4) HTN (hypertension): Plan: - Raise carvedilol as above. (5) Postherpetic neuralgia: Plan: - Continue gabapentin. (6) Stage 2 chronic kidney disease: Plan: - Creatinine elevated at 1.31, baseline. - Continue to monitor, avoid nephrotoxins, renally dose meds as it. Plan Continue antibiotics and attempt to wean down O2 as well as control tachycardia Admission and Anticipated Discharge Date Admission Date: October 19, 2022 Subjective Seen at 1020 this morning. Talkative as usual. Eating well. Still needing oxygen and cough is considerably decreased. Walking unassisted with a walker but desaturates considerably Says he ate dinner with his yesterday. She is also on hospital. Physical Exam Physical Exam: Dyspneic while using a walker to walk with physical therapy. Oxygen saturation on 2 L of oxygen after walking to room lengths was 83%. After about 4 minutes of rest in sitting position, this went up to 89%. Alert and well oriented in place and person, good insight and judgment, Head and neck moist tongue no thyromegaly Chest clear to auscultation anteriorly CVS S1-S2, telemetry sinus tachycardia with few PVCs Abdomen slightly distended nontender Extremities no edema gait normal as well Results & Data Results & Data ([facility]) Vital Signs (Past 12 Hours) Vital Signs Temp Pulse Pulse Resp BP Pulse Ox O2 Del Method 10/21/22 14:49 36.2 C L 86 18 159/71 H 92 Nasal Cannula 10/21/22 13:12 80 16 94 Nasal Cannula 10/21/22 11:21 36.7 C 90 18 133/78 90 Nasal Cannula 10/21/22 11:00 87 10/21/22 11:00 Nasal Cannula 10/21/22 07:48 88 16 92 Nasal Cannula 10/21/22 07:46 36.7 C 85 18 138/81 92 Nasal Cannula O2 Flow Rate 10/21/22 14:49 2 10/21/22 13:12 2 10/21/22 11:21 2 10/21/22 11:00 10/21/22 11:00 2 10/21/22 07:48 2 10/21/22 07:46 2 Laboratory Results none today- TSH <0.010 yesterday Medications Administered Home Medications Medication Instructions Recorded Confirmed Last Taken acetaminophen 325 mg tablet 325 mg PO Q6H PRN fever or pain 08/23/19 08/27/22 Unknown (Tylenol) cholecalciferol (vitamin D3) 25 2,000 units PO QAM 08/23/19 08/27/22 08/12/21 mcg (1,000 unit) tablet aspirin 81 mg tablet,delayed 81 mg PO QAM 12/17/19 08/27/22 08/12/21 release loratadine 10 mg tablet (Claritin) 10 mg PO DAILY PRN NASAL STUFFINESS 05/16/21 08/27/22 05/16/21 gabapentin 600 mg tablet 600 mg PO BID #60 tabs 06/17/22 08/27/22 Unknown Active Medications Generic Name Dose Route Start Last Admin Trade Name Freq PRN Reason Stop Dose Admin Albuterol 3 ml 10/19/22 16:00 10/21/22 13:11 Albut/Ipratrop 3mg/0.5mg Neb 3 Ml Vial INH 11/18/22 15:59 3 ml Q6R TONI Administration Aspirin 81 mg 10/20/22 09:00 10/21/22 08:21 Aspirin 81 Mg Ectab PO 11/19/22 08:59 81 mg QAM TONI Administration Carvedilol 3.125 mg 10/20/22 13:00 10/21/22 08:21 Carvedilol 3.125 Mg Tab PO 11/19/22 12:59 3.125 mg BID TONI Administration Gabapentin 600 mg 10/19/22 21:00 10/21/22 08:21 Gabapentin 600 Mg Tab PO 11/18/22 20:59 600 mg BID TONI Administration Guaifenesin 1,200 mg 10/19/22 21:00 10/21/22 08:21 Guaifenesin 600 Mg Tabcr PO 11/18/22 20:59 1,200 mg BID TONI Administration Azithromycin 500 mg/ Dextrose 255 mls @ 127.5 mls/hr 10/20/22 13:00 10/21/22 15:58 IV 10/27/22 12:59 127.5 mls/hr Q24H TONI Administration Ceftriaxone Sodium 2,000 mg/ 70 mls @ 140 mls/hr 10/20/22 13:00 10/21/22 15:56 Dextrose IV 10/26/22 12:59 Infused Q24H TONI Infusion Protocol Vitamin D 2,000 units 10/20/22 09:00 10/21/22 08:21 Cholecalciferol 1,000 Units 25 Mcg Tab PO 11/19/22 08:59 2,000 units QAM TONI Administration PG Care Time/CCT Total # of Minutes Spent Total Time Spent with Patient: Total time spent is greater than 50% in coordination of care (as documented) at patient's floor/unit and/or counseling patient: Coding Level of Care Code 45131 Subseq Hosp Care Lvl 3 Diagnoses Community acquired pneumonia J18.9 Elevated troponin R77.8 Large B-cell lymphoma C85.10 HTN (hypertension) I10 Hypertension type: unspecified Postherpetic neuralgia B02.29 Stage 2 chronic kidney disease N18.2 (1) HTN (hypertension) Hypertension type: unspecified Qualified Code(s): I10 - Essential (primary) hypertension
--- NOTE | 2022-10-21 19:28 | Cardiology Progress Note ---
Date of Service October 21, 2022 Assessment & Plan (1) Elevated troponin: (2) Hypoxia: (3) Cardiomyopathy: (4) Ventricular tachycardia: Plan 1. Hypoxia: Improved. MOst likely from virus/pulmonary source. However, BNP elevated at admission. Slowly diuresing on his own but I would have a low threshold for some lasix. 2. Elevated troponin: Very mild elevation. 3. Cardiomyopathy: Very mild. Symptoms of dyspnea improving.Agree with increasing carvedilol as tolerated. 4. Ventricular tachycardia: NO recurrence. On carvedilol 5. Abnormal EKG: Will monitor his symptoms as he becomes more active. 6. Syncope: Remote. Admission and Anticipated Discharge Date Admission Date: October 19, 2022 Subjective He report improvement in his breathing today. He reports ambulating with PT. NO dizziness. No chest pain. Coughing improved. Review of Systems Review of Systems: per HPI Physical Exam Physical Exam: The patient is alert and oriented. Mood and affect appeared normal. He answered all questions appropriately. HEENT: Pupils are equal and reactive to light and accommodation. Extraocular movements are intact. The sclerae are anicteric. Neuro: Cranial nerves intact Lungs: Clear to auscultation bilaterally. He has good air movement without use of accessory muscles. No rales. Some expiratory wheezing. Cardiac: Heart demonstrates a regular rate and rhythm with occasional ectopy. Normal S1 and S2. No murmurs on examination. Pulses: The patient has palpable radial pulses bilaterally that are equal in intensity Extremities: There was no evidence of hypoperfusion. There is no cyanosis or clubbing. There is no edema. Skin: I did not appreciate any rashes on examination today. Results & Data ([facility]) Vital Signs (Past 12 Hours) Vital Signs Temp Pulse Pulse Resp BP Pulse Ox O2 Del Method 10/21/22 19:19 91 H 16 94 Nasal Cannula 10/21/22 14:49 36.2 C L 86 18 159/71 H 92 Nasal Cannula 10/21/22 13:12 80 16 94 Nasal Cannula 10/21/22 11:21 36.7 C 90 18 133/78 90 Nasal Cannula 10/21/22 11:00 87 10/21/22 11:00 Nasal Cannula 10/21/22 07:48 88 16 92 Nasal Cannula 10/21/22 07:46 36.7 C 85 18 138/81 92 Nasal Cannula O2 Flow Rate 10/21/22 19:19 2 10/21/22 14:49 2 10/21/22 13:12 2 10/21/22 11:21 2 10/21/22 11:00 10/21/22 11:00 2 10/21/22 07:48 2 10/21/22 07:46 2 PG Care Time/CCT Total # of Minutes Spent Total Time Spent with Patient: Total time spent is greater than 50% in coordination of care (as documented) at patient's floor/unit and/or counseling patient: Coding Level of Care Code 47635 Subseq Hosp Care Lvl 2 Diagnoses Elevated troponin R77.8 Hypoxia R09.02 Cardiomyopathy I42.9 Ventricular tachycardia I47.20
[2022-10-21] MEDS: carvediloL 6.25 MG TAB PO SCH (22:32)
[2022-10-22] MEDS: ALBUT/IPRATROP 3MG/0.5MG NEB 3 ML VIAL INH SCH ×5 (05:12→19:55)
[2022-10-22 08:19] LABS: Hematocrit (blood only) 39.8 % (40.1-51.0); Hemoglobin 13.3 g/dl (14.0-18.0); Mean Corpuscular Hemoglobin 30.4 pg (25.0-34.0); Mean Corpuscular Hgb Conc 33.4 g/dL (32.0-36.0); Mean Corpuscular Volume 91.1 fL (80.0-100.0); Mean Platelet Volume 10.6 fL (9.4-12.4); Platelet Count 320 K/uL (130-400); RDW Coefficient of Variation 12.5 % (11.5-14.5); RDW Standard Deviation 41.5 fL (36.4-46.3); Red Blood Count 4.37 M/uL (4.63-6.08); White Blood Count 7.65 K/ul (4.8-10.8)
[2022-10-22 08:42] LABS: BUN Creatinine Ratio 24.8 (10-20); Calcium 8.6 mg/dl (8.5-10.1); Creatinine Clr Calc Pharmacy 49.9 ml/min; Est GFR (African American) 63.3 ml/min; Est GFR (Non-African American) 54.6 ml/min; Magnesium 2.1 mg/dl (1.7-2.4); Potassium 4.2 mmol/L (3.5-5.1)
--- NOTE | 2022-10-22 08:48 | Ultrasound Report ---
THYROID ULTRASOUND CLINICAL HISTORY: History of lymphoma. Hyperthyroid. COMPARISON STUDY: Head CT June 23, 2006. TECHNIQUE: Sonography of the thyroid gland was performed. FINDINGS: Thyroid gland is partially obscured on this exam. This exam is compromised by motion artifa ct. However, no discrete thyroid nodules noted. The right lobe measures 2.9 x 1.5 x 1.5 cm and the le ft lobe measures 2.7 x 1.3 x 1.5 cm. The isthmus measures 0.2 cm in AP dimension. Adjacent soft tissu es are unremarkable. IMPRESSION: 1. Exam mildly compromised by artifact. No thyroid nodules identified. 2. Slightly small thyroid gland. Otherwise, unremarkable thyroid ultrasound. ACT 112: Negative or not required by law. Electronically signed by: Mihir Huynh M.D. 10/22/2022 8:46 AM
[2022-10-22] MEDS: guaiFENesin 600 MG TABCR PO SCH ×2 (08:50→20:10)
[2022-10-22] MEDS: ASPIRIN 81 MG ECTAB PO SCH (08:50)
[2022-10-22] MEDS: carvediloL 6.25 MG TAB PO SCH ×2 (08:51→20:11)
[2022-10-22] MEDS: GABAPENTIN 600 MG TAB PO SCH ×2 (08:51→20:10)
[2022-10-22] MEDS: CHOLECALCIFEROL 1,000 UNITS 25 MCG TAB PO SCH (08:51)
[2022-10-22] MEDS ORDERED: FUROSEMIDE INJ 20 MG/2 ML VIAL IV ONE (09:47)
[2022-10-22] MEDS: AZITHROMYCIN 500 MG in DEXTROSE 5% 250 ML IV SCH (12:55)
[2022-10-22] MEDS: cefTRIAXone SODIUM 2,000 MG in DEXTROSE 5% 50 ML IV SCH (12:57)
--- NOTE | 2022-10-22 18:56 | Hospitalist Progress Note ---
Date of Service October 22, 2022 Assessment & Plan (1) RSV infection: Plan: Patient here with malaise, productive cough, shortness of breath, chills, tested positive for RSV upon admission. With community-acquired pneumonia as below Continue supportive care, pulmonary toilet Maintain isolation precautions (2) Community acquired pneumonia: Plan: -No PE on CTA, but with anterior mediastinal lymph nodes measuring up to 1.3 x 1.1 cm increased in size since prior PET/CT in 2005, trace left pleural effusion, subpleural left lower lobe opacity with volume loss representing rounded atelectasis, moderate airspace opacities in dependent RUL and RLL, with secretions in the mainstem bronchi greater on the right. Also with multiple pleural plaques present. -With productive cough, wheezing -Sputum culture with moderate normal aracelis -Blood cultures no growth to date-continue to follow -Continue nebulizers but decrease to 3 times daily as he does not want 1 in the middle of the night -Continue flutter valve, incentive spirometry -Continue ceftriaxone and changed azithromycin from IV to p.o.-needs to 50 Mg once daily x2 days to make a 5-day course, would continue cephalosporin for 7 days -Follow CBC, CMP in the morning -Will need repeat chest CT in 1 to 2 months to ensure resolution of pneumonia and to follow-up on lymphadenopathy given history of lymphoma (3) Hypoxia: Plan: Acute respiratory failure with hypoxia Secondary to pneumonia and RSV Remains on 2 LNC -Continue supplemental O2 and wean off as able to He is not on home O2 (4) Abnormal chest CT: Plan: As above Needs repeat chest CT in 1 to 2 months especially given history of lymphoma and mediastinal lymphadenopathy which may very well be reactive to pneumonia Given lymphadenopathy, will check LDH in the morning (5) Hyponatremia: Plan: Sodium was mildly low and now improved Follow BMP (6) Cardiomyopathy: Plan: Echocardiogram here with LV function borderline reduced, RV mildly dilated and RVSP elevated at 30-40 mmHg, no significant valvular disease With some possible mild volume overload and pulmonary edema-give Lasix 20 Mg IV x1 today Appreciate cardiology consultation -Added carvedilol 6.25 Mg p.o. twice daily -Consider adding on SAVANNAH inhibitor or ARB -Changed to low-sodium diet, fluid restrict to 1500 mL -Follow daily weights, strict I's and O's (7) Abnormal thyroid stimulating hormone (TSH) level: Plan: TSH is undetectable Thyroid ultrasound with smaller size thyroid but no nodules His TSH was actually elevated in 2019 Perhaps he had a subacute thyroiditis? -Check free T3 and free T4 in the morning -Definitely will need outpatient follow-up with PCP and/or endocrinology (8) Ventricular tachycardia: Plan: No further episodes of this, previously was very brief With mildly reduced EF Cardiology following Started beta-frankie Follow on telemetry (9) Elevated troponin: Plan: Troponin elevated at 25.4 and then trended downward Most likely myocardial demand ischemia in the setting of hypoxia, acute pneumonia Echocardiogram without wall motion abnormalities but with mildly reduced EF as above (10) Large B-cell lymphoma: Plan: - Follicular lymphoma in June 2006, 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 - Completed his last chemotherapy in 2015. 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 - Port removed in January. -With mediastinal lymphadenopathy which will need follow-up but is most likely reactive to pneumonia Follow-up with oncology after discharge Checking LDH (11) HTN (hypertension): Plan: Blood pressures mildly elevated Started carvedilol Giving Lasix today (12) Postherpetic neuralgia: Plan: - Continue gabapentin. (13) Stage 2 chronic kidney disease: Plan: Creatinine stable today at 1.2 -Avoid nephrotoxins -renally dose meds when appropriate -follow BMP Plan DVT prophylaxis-add Lovenox Disposition-continued stay on med telemetry PT/OT ordered to see if we will need rehab but he desires acute rehab at [facility] when stable Possibly in the next 1 to 2 days for discharge Admission and Anticipated Discharge Date Admission Date: October 19, 2022 Subjective Pt reports feeling better than previous with less SOB. Still with some productive cough. No CP. Is moving bowels, no diarrhea. Is feeling a bit stronger, ambulating out of bed independently as per patient. He is using his ICS and flutter valve. Is irritated about being woken up in the middle of the night for a neb treatment and would lilke that stopped. Remains on 2LNC O2. Tele with NSR, PACs, rates 80s Review of Systems Review of Systems: All systems reviewed & are unremarkable except as noted in HPI & below Physical Exam Constitutional: WD/WN, vitals as above Eyes: + anicteric sclerae ENMT: external ear and nose normal, oropharynx normal Neck: trachea midline, no thyromegaly Respiratory: normal respiratory effort and + cough Auscultation: + wheezes (bilateral); no crackles and no rhonchi Cardiovascular: RRR, no murmur, no edema Chest (Breasts): Chest: normal inspection of chest Gastrointestinal (Abdomen): normal bowel sounds, soft, nontender, no hepatosplenomegaly Musculoskeletal: Extremities: extremities normal to inspection; no cyanosis and no clubbing Skin: no rashes, warm and dry Neurologic: moves all extremities and awake; no focal motor deficits Psychiatric: A+Ox3, euthymic affect Lymphatic: no lymphedema Results & Data Results & Data ([facility]) Vital Signs (Past 12 Hours) Vital Signs Temp Pulse Pulse Resp BP Pulse Ox O2 Del Method 10/22/22 17:40 87 16 95 Nasal Cannula 10/22/22 14:01 90 10/22/22 15:25 36.6 C 85 14 119/76 90 Nasal Cannula 10/22/22 13:00 Nasal Cannula 10/22/22 12:50 88 16 93 Nasal Cannula 10/22/22 12:33 36.7 C 91 H 20 152/89 H 92 Nasal Cannula 10/22/22 09:00 Nasal Cannula 10/22/22 10:20 Nasal Cannula 10/22/22 08:48 36.8 C 97 H 18 130/76 93 Nasal Cannula O2 Flow Rate 10/22/22 17:40 2 10/22/22 14:01 10/22/22 15:25 2 10/22/22 13:00 2 10/22/22 12:50 2 10/22/22 12:33 2 10/22/22 09:00 2 10/22/22 10:20 2 10/22/22 08:48 3 Laboratory Results 10/22/22 10/22/22 Range/Units 07:46 07:46 WBC 7.65 (4.8-10.8) K/ul RBC 4.37 L (4.63-6.08) M/uL Hgb 13.3 L (14.0-18.0) g/dl Hct 39.8 L (40.1-51.0) % MCV 91.1 (80.0-100.0) fL MCH 30.4 (25.0-34.0) pg MCHC 33.4 (32.0-36.0) g/dL RDW Std Deviation 41.5 (36.4-46.3) fL RDW Coeff of Chantal 12.5 (11.5-14.5) % Plt Count 320 (130-400) K/uL MPV 10.6 (9.4-12.4) fL Sodium 137 (136-145) mmol/L Potassium 4.2 (3.5-5.1) mmol/L Chloride 102 (98-107) mmol/L Carbon Dioxide 28 (21-32) mmol/L Anion Gap 7 (3-11) BUN 30 H (6-23) mg/dl Creatinine 1.21 (0.6-1.4) mg/dl Est Cr Clr Drug Dosing 49.9 ml/min Est GFR ( Amer) 63.3 ml/min Est GFR (Non-Af Amer) 54.6 ml/min BUN/Creatinine Ratio 24.8 H (10-20) Glucose 85 (70-99(Fasting)) mg/dl Calcium 8.6 (8.5-10.1) mg/dl Magnesium 2.1 (1.7-2.4) mg/dl PG Care Time/CCT Total # of Minutes Spent Total Time Spent with Patient: Total time spent is greater than 50% in coordination of care (as documented) at patient's floor/unit and/or counseling patient: Coding Level of Care Code 08734 Subseq Hosp Care Lvl 3 Diagnoses RSV infection B33.8 Community acquired pneumonia J18.9 [address]09[address] R93.89 Hyponatremia E87.1 Cardiomyopathy I42.9 Abnormal thyroid stimulating hormone (TSH) level R79.89 Ventricular tachycardia I47.20 Elevated troponin R77.8 Large B-cell lymphoma C85.10 HTN (hypertension) I10 Hypertension type: unspecified Postherpetic neuralgia B02.29 Stage 2 chronic kidney disease N18.2 (1) HTN (hypertension) Hypertension type: unspecified Qualified Code(s): I10 - Essential (primary) hypertension
--- NOTE | 2022-10-22 20:51 | Electrocardiogram Report ---
Test Reason : Blood Pressure : / mmHG Vent. Rate : 095 BPM Atrial Rate : 095 BPM P-R Int : 164 ms QRS Dur : 084 ms QT Int : 354 ms P-R-T Axes : 053 -20 007 degrees QTc Int : 444 ms Sinus rhythm with frequent and consecutive atrial ectopy PVCs versus aberrancy Otherwise normal ECG When compared with ECG of 20-OCT-2022 09:29, T wave inversion less evident in Anterior leads Confirmed by Samuel Muniz ([id number]) on 10/22/2022 8:51:26 PM Referred By: REFERRED SELF Confirmed By:Leonardo Muniz
[2022-10-23] MEDS: ALBUT/IPRATROP 3MG/0.5MG NEB 3 ML VIAL INH SCH ×2 (05:14→13:19)
[2022-10-23 07:17] LABS: Basophils # (auto) 0.03 K/uL (0-0.2); Basophils % (auto) 0.3 %; Eosinophils # (auto) 0.28 K/uL (0-0.50); Eosinophils % (auto) 3.2 %; Hematocrit (blood only) 41.7 % (40.1-51.0); Hemoglobin 13.9 g/dl (14.0-18.0); Immature Granulocytes # (auto) 0.04 K/uL (0.00-0.02); Immature Granulocytes % (auto) 0.5 %; Lymphocytes # (auto) 1.16 K/uL (1.2-3.4); Lymphocytes % (auto) 13.1 %; Mean Corpuscular Hemoglobin 30.3 pg (25.0-34.0); Mean Corpuscular Hgb Conc 33.3 g/dL (32.0-36.0); Mean Corpuscular Volume 90.8 fL (80.0-100.0); Mean Platelet Volume 10.5 fL (9.4-12.4); Monocytes # (auto) 1.08 K/uL (0.24-0.82); Monocytes % (auto) 12.2 %; Neutrophils # (auto) 6.26 K/uL (1.4-6.5); Neutrophils % (auto) 70.7 %; Platelet Count 337 K/uL (130-400); RDW Coefficient of Variation 12.2 % (11.5-14.5); Red Blood Count 4.59 M/uL (4.63-6.08); White Blood Count 8.85 K/ul (4.8-10.8)
[2022-10-23 07:44] LABS: Albumin Globulin Ratio 1.1 (0.9-2); Albumin Level 3.2 gm/dl (3.4-5.0); BUN Creatinine Ratio 21.5 (10-20); Bilirubin,Total 0.6 mg/dl (0.2-1.0); Calcium 8.6 mg/dl (8.5-10.1); Creatinine Clr Calc Pharmacy 44.6 ml/min; Est GFR (African American) 55.5 ml/min; Est GFR (Non-African American) 47.9 ml/min; Globulin 2.8 gm/dl (2.5-4.0); Magnesium 2.2 mg/dl (1.7-2.4); Potassium 4.1 mmol/L (3.5-5.1)
[2022-10-23] MEDS ORDERED: ENOXAPARIN INJ 40 MG/0.4 ML SYR SQ SCH (07:45)
[2022-10-23] MEDS ORDERED: AZITHROMYCIN 250 MG TAB PO SCH (09:00)
--- NOTE | 2022-10-23 10:36 | Discharge Summary ---
Date of Service October 23, 2022 Admission HPI Per Admitting Provider Sohan Land is an 82-year-old male with past medical history significant for hypertension, large cell B-cell lymphoma, CKDII, cervical spondylosis, and postherpetic neuralgia who is presenting today with shortness of breath. He states since he has had no energy, shortness of breath when ambulating home, chills, productive cough. He has not been eating much since because he just does not have the appetite. He normally ambulates well at home without experiencing any shortness of breath, chest pain, palpitations. He has not had any chest pain or palpitations today, is not having any troubles laying flat and actually states this is the only way he has been able to sleep at home. He has not had any recent sick contacts. He has not had any leg swelling or pain, did not travel out of the area for , no history of blood clots. On presentation is 88% on room air, improved on 2 L NC, borderline tachycardic HR 90s, mildly hypertensive. Labs without leukocytosis but w/ left shift, troponin 25.4, BNP 984. COVID/flu/RSV positive for RSV. CXR with patchy right midlung airspace opacity suspicious for pneumonia, cardiomegaly without overt pulmonary edema, emphysema with chronic interstitial coarsening of lung bases. Principal Diagnosis pneumonia, likely bacterial , RSV positive Discharge Exam seen at 945, in [address] clothes, eager to join at SNF ALERT , MODERATE HEARING LOSS, PLEaSANT 93% on 1.5 l NC at rest H/n : edentulous.Eats well Chest CTA CVS : s1 s2 rrr telemetry NSR ext no edema work counselor :grossly intact except for hearing loss Discharge Data Allergies Allergy/AdvReac Type Severity Reaction Status Date / Time grass pollen Allergy Mild NASAL Verified 08/27/22 08:00 STUFFINESS Consultations 10/19/22 12:21 ED Decision to Admit Stat 10/20/22 09:11 Consult Cardiology Routine Ordered Studies 10/19/22 13:54 CT angio chest PE protocol Urgent 10/21/22 18:27 US neck [US thyroid] Routine Hospital Course (1) RSV infection: Patient here with malaise, productive cough, shortness of breath, chills, tested positive for RSV upon admission. With community-acquired pneumonia as below d/d to snf on 02- and 5 days total antibiotics. (2) Community acquired pneumonia: -No PE on CTA, but with anterior mediastinal lymph nodes measuring up to 1.3 x 1.1 cm increased in size since prior PET/CT in 2005, trace left pleural effusion, subpleural left lower lobe opacity with volume loss representing rounded atelectasis, moderate airspace opacities in dependent RUL and RLL, with secretions in the mainstem bronchi greater on the right. Also with multiple ple ural plaques present. -With productive cough, wheezing -Sputum culture with moderate normal aracelis -Blood cultures no growth to date -Continue nebulizers but decrease to 3 times daily as he does not want 1 in the middle of the night -Continue flutter valve, incentive spirometry -Continue ceftriaxone and changed azithromycin from IV to p.o.-needs to 50 Mg once daily x2 days to make a 5-day course, would continue cephalosporin for 7 days -Follow CBC, CMP in the morning -Will need repeat chest CT in 1 to 2 months to ensure resolution of pneumonia and to follow-up on lymphadenopathy given history of lymphoma (3) Hypoxia: Acute respiratory failure with hypoxia Secondary to pneumonia and RSV Remains on 2 LNC -Continue supplemental O2 and wean off as able to in SNF He is not on home O2 (4) Abnormal chest CT: As above Needs repeat chest CT in 1 to 2 months especially given history of lymphoma and mediastinal lymphadenopathy which may very well be reactive to pneumonia Given lymphadenopathy, will check LDH in the morning (5) Hyponatremia: Sodium was mildly low and now improved Follow BMP (6) Cardiomyopathy: Echocardiogram here with LV function borderline reduced, RV mildly dilated and RVSP elevated at 30-40 mmHg, no significant valvular disease With some possible mild volume overload and pulmonary edema-give Lasix 20 Mg IV x1 10/22 Appreciate cardiology consultation- mild cardiomyopathy is dx -Added carvedilol 6.25 Mg p.o. twice daily -Consider adding on SAVANNAH inhibitor or ARB -Changed to low-sodium diet, fluid restrict to 1500 mL -Follow daily weights, strict I's and O's (7) Abnormal thyroid stimulating hormone (TSH) level: TSH is undetectable Thyroid ultrasound with smaller size thyroid but no nodules His TSH was actually elevated in 2019 Perhaps he had a subacute thyroiditis? 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 - Completed his last chemotherapy in 2015. 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 - Port removed in January. -With mediastinal lymphadenopathy which will need follow-up but is most likely reactive to pneumonia Follow-up with oncology after discharge Checking LDH (11) HTN (hypertension): Blood pressures mildly elevated Started carvedilol Giving Lasix today (12) Postherpetic neuralgia: - Continue gabapentin. (13) Stage 2 chronic kidney disease: Creatinine stable today at 1.2 -Avoid nephrotoxins -renally dose meds when appropriate -follow BMP (14) Hyperthyroidism: no thyroid nodule, thyroxine 1.76, normal free T3 Follow as outpatient Tachycardia resolved w current carvedilol dose Plan DVT prophylaxis-add Lovenox Discharge to SNF today where was discharged earlier this week Total Time Total Time Spent Total Time Spent (In Minutes): 40 Discharge Plan Discharge Items Patient Disposition: Transfer Inpatient Rehab Fac Reason For Visit: PNEUMONIA Discharge Diagnosis: acute resp failure wpneumonia and mild cardiomyopathy Activity: As commented below Activity Comment: millie Non-emergency contact: Primary Care Provider Call non-emergency contact if: you have any medication questions Follow-up/Referrals: Corby Zuniga DO [Primary Care Provider] - Diet: Regular and Heart Healthy Addtl Attending Provider Instructions: CT repeat plan as above. Follow hyperthyroidism for management 02 2 l nasal cannula all times- wean trial in 2 days Pending Studies at Discharge: No Stand-Alone Forms: My [email or web address] Skilled Items Patient informed of condition?: Yes DNR: No Discharge Level of Care: Skilled Communicable Disease: No Discharge Prognosis: Improving Lines: None Urinary Catheter: No Medications and DC Order Prescriptions: New carvedilol 6.25 mg Tablet 6.25 mg PO BID Qty: 14 0RF ipratropium-albuterol 0.5 mg-3 mg(2.5 mg base)/3 mL Solution For Nebulization 3 ml inhalation TIDR Qty: 90 0RF ipratropium-albuterol 0.5 mg-3 mg(2.5 mg base)/3 mL Solution For Nebulization 3 ml NEB Q2R PRN (Reason: shortness of breath) Qty: 90 0RF polyethylene glycol 3350 [Miralax] 17 gram Powder In Packet 17 g PO DAILY PRN (Reason: constipation) Qty: 14 0RF enoxaparin [Lovenox] 40 mg/0.4 mL Syringe 40 mg subcut Q24H Qty: 4 0RF codeine-guaifenesin [Guaifenesin AC] 10-100 mg/5 mL liquid 5 ml PO Q6H PRN (Reason: allergy symptoms) Qty: 237 0RF azithromycin 250 mg Tablet 250 mg PO QAM 4 Days Qty: 4 0RF amoxicillin-pot clavulanate [Augmentin] 500-125 mg tablet 1 tab PO BID Qty: 4 0RF Continued gabapentin 600 mg tablet 600 mg PO BID Qty: 60 5RF acetaminophen [Tylenol] 325 mg tablet 325 mg PO Q6H PRN (Reason: fever or pain) cholecalciferol (vitamin D3) 1,000 unit (25 mcg) tablet 2,000 units PO QAM aspirin 81 mg Tablet,Delayed Release (Dr/Ec) 81 mg PO QAM loratadine [Claritin] 10 mg Tablet 10 mg PO DAILY PRN (Reason: NASAL STUFFINESS) Discharge Orders: Discharge Order (Routine); Ordered 10/23/22 Ordered By: Jorge Luis Barbour Admission Data Admit Date/Time: 10/19/22 12:33 Attending Provider: Jorge Luis Barbour Admit Provider: Nitin Ashford Primary Care Provider: Corby Zuniga Other Providers: Nitin Ashford ; Juliano Figueroa ; Tam Vidal ; Hu West ; Sohan Polo ; Samy Crockett ; Pablo Quinn Jr ; Lino Moreland ; Lynn Rose ; Caroline Tinsley ; Kings Webb ; Samuel Muniz ; Liang Milton ; Maryann John ; Janiya Bullard ; Shan Davey ; Alex Farrell ; Taras Martinez ; Sohan Lazo V. ; [facility] Coding Level of Care Code D/C DAY MANAGEMENT >30 MINS Diagnoses RSV infection B33.8 Community acquired pneumonia J18.9 [address] R93.89 Hyponatremia E87.1 Cardiomyopathy I42.9 Abnormal thyroid stimulating hormone (TSH) level R79.89 Ventricular tachycardia I47.20 Elevated troponin R77.8 Large B-cell lymphoma C85.10 HTN (hypertension) I10 Hypertension type: unspecified Postherpetic neuralgia B02.29 Stage 2 chronic kidney disease N18.2 Hyperthyroidism E05.90
[2022-10-23] MEDS: carvediloL 6.25 MG TAB PO SCH (10:56)
[2022-10-23] MEDS: guaiFENesin 600 MG TABCR PO SCH (10:56)
[2022-10-23] MEDS: ASPIRIN 81 MG ECTAB PO SCH (10:56)
[2022-10-23] MEDS: CHOLECALCIFEROL 1,000 UNITS 25 MCG TAB PO SCH (10:56)
[2022-10-23] MEDS: GABAPENTIN 600 MG TAB PO SCH (10:56)
[2022-10-23] MEDS: cefTRIAXone SODIUM 2,000 MG in DEXTROSE 5% 50 ML IV SCH (13:02)
== END 2022-10-23 17:41 | DRG 193 ==
LOC: ED 10:30 → EDINP 12:33 → SUATTDRO 12:33 → 2N 10-20 14:49

== ENCOUNTER 2023-05-16 07:22 | Inpatient (IN) ==
[2023-05-16] MEDS ORDERED: ALBUT/IPRATROP 3MG/0.5MG NEB 3 ML VIAL NEB STA ×2 (07:29→11:14)
[2023-05-16] MEDS ORDERED: dexAMETHasone**PF** 10 MG/ML VIAL IV ONE (07:29)
[2023-05-16] MEDS ORDERED: SODIUM CHLORIDE 0.9% 1000ML 1,000 ML IV SCH (07:30)
--- NOTE | 2023-05-16 07:33 | Emergency Department Note ---
Impression & Plan Right middle lobe pneumonia, Acute respiratory failure with hypoxia ED Provider Note Name: KIERAN ETIENNE Age: 82 Sex: M Arrives Via: Ambulance Informant: Patient, EMS ED Provider: Robert Cuellar MD Chief Complaint: Shortness of breath Impression: As per impressions above Medical Decision Makin-year-old gentleman with a history of CKD, cardiomyopathy, hypertension, lymphoma amongst other pathologies arrives for evaluation of worsening shortness of breath over the last 3 to 4 days. On arrival patient is hypoxic and unwell appearing. He has diffuse crackles and tight lung sounds all drummond. Patient was given DuoNeb, IV Decadron and some IV fluids for sepsis management. Patient does have a history of cardiomyopathy with fluid overload as well as CKD thus he was not given 30 mL/kg of IV fluids but rather just 1 L normal saline bolus. He was empirically given IV cefepime and doxycycline for pulmonary infection. He has no significant MRSA risk factors thus a MRSA swab was sent which was negative. Laboratory testing reveals moderately elevated troponin which is is a bit more elevated than previous however patient was quite hypoxic prior to arrival and thus with EKG findings I think it is unlikely that this is acute coronary syndrome as cause. COVID testing is negative. Patient meets criteria for severe sepsis at this time and procalcitonin leads me to more concern. Fortunately lactate is normal his blood pressure remained stable throughout stay. Hospitalist consulted for further management. Prior Medical Record and Triage/Nursing Notes reviewed by Me External chart reviewed by me Differentials:Pneumonia, CHF, COPD, sepsis, ACS, pneumothorax amongst other pathology considered Vital Signs: reviewed and remarkable for hypoxia Interventions: Normal saline bolus 1 L IV, cefepime IV, doxycycline IV Labs:Reviewed and remarkable for elevated procalcitonin many other labs reviewed by me Imagin view chest x-ray as per my interpretation reveals a right middle lobe infiltrate which is new from previous. EKG:As per my interpretation. Indication shortness of breath. Sinus at 96 bpm with a QTc of 421. There is a PAC. No overt STEMI morphology. Left anterior fascicular block noted. On compared to October 22, 2022 EKG there is no significant change. Cardiac/Tele Monitoring: Cardiac Monitoring: An Order was placed for continuous cardiac monitoring. The monitor shows a rate of 90 with a normal sinus rhythm. Consults:Chelle hospitalist Plan: Disposition:Hospitalization. Condition: Good History of Present Illness:82-year-old gentleman arrives for evaluation illness. Patient with 3 days of worsening fevers, chills, cough, congestion and weakness. He is feeling so weak that he was unable to sit on the couch this morning and slid off it. He did not have a fall or strike his head. He notes he is just too weak to stand up. EMS arrived and patient was hypoxic to the low 70s on room air. He was given nasal cannula O2 and notes he is much improved now. Patient denies any current chest pain, back pain, headache, sore throat, neck pain, abdominal pain, nausea, vomiting, palpitations, urinary/bowel symptoms, leg pain/swelling or other concerning signs or symptoms. He has not been on any recent antibiotics. No new medications. He has been using his inhaler at home several times a day with without any significant improvement. No known sick contacts. Past History:Hyperthyroidism, CKD, cardiomyopathy, hypertension, lymphoma Home Medications:See Below Allergies:nkda Vitals:Blood Pressure: 141/86, Pulse 89, RR 28, T 37.2C, O2 98% on 5L NC Physical Exam: GENERAL: Patient is unwell appearing and in mild distress. EYES: No scleral icterus, unremarkable pupils. ENT: Mucous membranes moist, mild nasal congestion NECK: No masses appreciated, nomeningismus, trachea is midline. RESPIRATORY: Moderate dyspnea/tachypnea with diffusely tight lung sounds expiratory wheezing and rhonchi noted. CARDIOVASCULAR: Mildly tachycardic.No murmurs, rubs, gallops appreciated. GASTROINTESTINAL: Abdomen soft, non-tender, no peritonitis.Bowel sounds positive.No masses appreciated. EXTREMITIES: Normal motion all extremities, no cyanosis, trace edema lower extremities, no calf TTP NEUROLOGIC: Alert and oriented, no focal neurologic deficit appreciated SKIN: No rash, no jaundice, no diaphoresis. PSYCH: Appropriate GCS: 15 ED Course: Times/Reassessments: Patient is much improved after some breathing treatments and some fluids. 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 Polyp of colon RSV infection Surgical History H/O varicose vein ligation Family History Father , Age 91 Renal failure Mother Breast cancer Denies family history of Ovarian cancer Prostate cancer Myocardial infarction Colorectal cancer Social History (Updated 02/25/23 @ 08:07 by Sudha Mchugh LPN) Smoking Status: Former smoker Tobacco Type: Cigarettes Age Quit Using Tobacco: 61; Second Hand Exposure: No; Do You Dip or Chew Tobacco: No; Hx Alcohol Use: Yes Alcohol type: beer Hx Substance Use: No Preferred Language: Algerian Communication Ability: Effective Visual Impairment: No Limitations Hearing Ability: Hard of Hearing Director Of Housing Required: No Beliefs That Will Affect Care: None marital status: Current Living Situation: Spouse Current Living Situation Comment: benjamin current occupational status: retired How many Children do You have: 1 Feels Safe at Home: Yes Childhood Exposure to Second-Hand Smoke: No Diet: regular caffeine: Yes Dental Care, Regularly: No Physical Activity Frequency: Does not Exercise Seatbelt Use: always Sunscreen Use: No Assistive Devices: Cane Allergies Allergies Allergy/AdvReac Type Severity Reaction Status Date / Time No Known Allergies Allergy Verified 05/16/23 08:44 Home Meds Home Medications Medication Instructions Recorded Confirmed acetaminophen 325 mg tablet 325 mg PO Q6H PRN fever or pain 08/23/19 05/16/23 (Tylenol) cholecalciferol (vitamin D3) 25 2,000 units PO QAM 08/23/19 05/16/23 mcg (1,000 unit) tablet aspirin 81 mg tablet,delayed 81 mg PO QAM 12/17/19 05/16/23 release gabapentin 600 mg tablet 600 mg PO HS 05/16/23 05/16/23 Previous Rx's Medication Instructions Recorded methimazole 10 mg tablet 10 mg PO DAILY #30 tabs 04/16/23 Results & Data (ED) Vital Signs Vital Signs - 24 hr 05/16/23 07:30 05/16/23 07:30 05/16/23 08:03 Temperature 37.2 C Temperature Source Oral Pulse Rate 95 H 89 87 Pulse Rate [Right Finger] Pulse Rhythm Regular Pulse Rhythm [Right Finger] Pulse Strength Normal Pulse Strength [Right Finger] Respiratory Rate 22 28 H Respiratory Effort / Characteristics Non-Labored Respiratory Depth Normal Respiratory Pattern Regular Blood Pressure 141/86 H Blood Pressure [Right Arm] Blood Pressure Mean 104 Blood Pressure Mean [Right Arm] Blood Pressure Position Lying Blood Pressure Position [Right Arm] Pulse Oximetry 97 98 Oxygen Delivery Method Room Air Nasal Cannula Oxygen Flow Rate 5 Sepsis Recent Fever Within 48 Hours No Sepsis New/Unexplained Change in Mental Status No Sepsis Action Taken by Nursing No Action Required Oxygen Flow Rate - Titration Pulse Oximetry Post Tiitration 05/16/23 08:11 05/16/23 10:00 05/16/23 11:00 Temperature Temperature Source Pulse Rate 92 H Pulse Rate [Right Finger] 94 H Pulse Rhythm Pulse Rhythm [Right Finger] Regular Pulse Strength Pulse Strength [Right Finger] Normal Respiratory Rate 18 24 Respiratory Effort / Characteristics Non-Labored Respiratory Depth Normal Respiratory Pattern Regular Blood Pressure 124/80 Blood Pressure [Right Arm] 104/71 Blood Pressure Mean 94 Blood Pressure Mean [Right Arm] 82 Blood Pressure Position Blood Pressure Position [Right Arm] Lying Pulse Oximetry 84 L 94 95 Oxygen Delivery Method Nasal Cannula Nasal Cannula Nasal Cannula Oxygen Flow Rate 0 4 4 Sepsis Recent Fever Within 48 Hours Sepsis New/Unexplained Change in Mental Status Sepsis Action Taken by Nursing Oxygen Flow Rate - Titration 5 Pulse Oximetry Post Tiitration 98 Laboratory Data 05/16/23 08:01 05/16/23 08:01 Lab Results 05/16/23 05/16/23 05/16/23 Range/Units 08:01 08:01 08:01 WBC 11.87 H (4.8-10.8) K/ul RBC 4.15 L (4.70-6.10) M/uL Hgb 12.9 L (14.0-18.0) g/dl Hct 38.4 L (42.0-52.0) % MCV 92.5 (80.0-100.0) fL MCH 31.1 (25.0-34.0) pg MCHC 33.6 (32.0-36.0) g/dL RDW Std Deviation 44.7 (36.4-46.3) fL RDW Coeff of Chantal 13.2 (11.5-14.5) % Plt Count 245 (130-400) K/uL MPV 10.4 (9.4-12.4) fL Immature Gran % (Auto) 0.4 % Neut % (Auto) 79.6 % Lymph % (Auto) 8.3 % [place] % (Auto) 11.1 % Eos % (Auto) 0.2 % Baso % (Auto) 0.4 % Neut # (Auto) 9.45 H (1.40-6.50) K/uL Lymph # (Auto) 0.98 L (1.2-3.4) K/uL [place] # (Auto) 1.32 H (0.11-0.59) K/uL Eos # (Auto) 0.02 (0-0.50) K/uL Baso # (Auto) 0.05 (0-0.2) K/uL Immature Gran # (Auto) 0.05 (0.01-0.20) K/uL PT 10.9 (9.0-12.0) Seconds INR 1.0 (0.9-1.1) APTT 28.5 (21.0-31.0) Seconds PTT Ratio 1.0 VBG pH (7.36-7.41) VBG pCO2 (38-50) mmHg VBG pO2 mmHg VBG HCO3 mmol/L VBG O2 Saturation % VBG Base Excess mEq/L Sodium 132 L (136-145) mmol/L Potassium 4.0 (3.5-5.1) mmol/L Chloride 100 (98-107) mmol/L Carbon Dioxide 25 (21-32) mmol/L Anion Gap 7 (3-11) BUN 28 H (6-23) mg/dl Creatinine 1.44 H (0.6-1.4) mg/dl Est Cr Clr Drug Dosing 39.4 ml/min Est GFR ( Amer) 51.3 ml/min Est GFR (Non-Af Amer) 44.3 ml/min BUN/Creatinine Ratio 19.4 (10-20) Glucose 118 H (70-99(Fasting)) mg/dl Lactate (0.4-2.0) mmol/L Calcium 8.7 (8.6-10.3) mg/dl Magnesium 1.9 (1.7-2.4) mg/dl Total Bilirubin 0.9 (0.2-1.0) mg/dl Direct Bilirubin 0.3 H (0-0.2) mg/dl AST 37 (13-39) U/L ALT 53 H (7-52) U/L Alkaline Phosphatase 115 H (34-104) U/L Troponin I High Sens 51.2 H* (0-20) pg/ml Total Protein 6.4 (6.0-8.3) gm/dl Albumin 3.2 L (3.4-5.0) gm/dl Procalcitonin (0-0.5) ng/ml Nasal Screen MRSA (PCR) (Negative) SARS-CoV-2 (PCR) (Negative) Influenza Type A (PCR) (Neg) Influenza Type B (PCR) (Neg) RSV (RT-PCR) (Neg) 05/16/23 05/16/23 05/16/23 Range/Units 08:01 08:01 08:17 WBC (4.8-10.8) K/ul RBC (4.70-6.10) M/uL Hgb (14.0-18.0) g/dl Hct (42.0-52.0) % MCV (80.0-100.0) fL MCH (25.0-34.0) pg MCHC (32.0-36.0) g/dL RDW Std Deviation (36.4-46.3) fL RDW Coeff of Chantal (11.5-14.5) % Plt Count (130-400) K/uL MPV (9.4-12.4) fL Immature Gran % (Auto) % Neut % (Auto) % Lymph % (Auto) % [place] % (Auto) % Eos % (Auto) % Baso % (Auto) % Neut # (Auto) (1.40-6.50) K/uL Lymph # (Auto) (1.2-3.4) K/uL [place] # (Auto) (0.11-0.59) K/uL Eos # (Auto) (0-0.50) K/uL Baso # (Auto) (0-0.2) K/uL Immature Gran # (Auto) (0.01-0.20) K/uL PT (9.0-12.0) Seconds INR (0.9-1.1) APTT (21.0-31.0) Seconds PTT Ratio VBG pH (7.36-7.41) VBG pCO2 (38-50) mmHg VBG pO2 mmHg VBG HCO3 mmol/L VBG O2 Saturation % VBG Base Excess mEq/L Sodium (136-145) mmol/L Potassium (3.5-5.1) mmol/L Chloride (98-107) mmol/L Carbon Dioxide (21-32) mmol/L Anion Gap (3-11) BUN (6-23) mg/dl Creatinine (0.6-1.4) mg/dl Est Cr Clr Drug Dosing ml/min Est GFR ( Amer) ml/min Est GFR (Non-Af Amer) ml/min BUN/Creatinine Ratio (10-20) Glucose (70-99(Fasting)) mg/dl Lactate 1.2 (0.4-2.0) mmol/L Calcium (8.6-10.3) mg/dl Magnesium (1.7-2.4) mg/dl Total Bilirubin (0.2-1.0) mg/dl Direct Bilirubin (0-0.2) mg/dl AST (13-39) U/L ALT (7-52) U/L Alkaline Phosphatase (34-104) U/L Troponin I High Sens (0-20) pg/ml Total Protein (6.0-8.3) gm/dl Albumin (3.4-5.0) gm/dl Procalcitonin 1.57 H (0-0.5) ng/ml Nasal Screen MRSA (PCR) Negative (Negative) SARS-CoV-2 (PCR) (Negative) Influenza Type A (PCR) (Neg) Influenza Type B (PCR) (Neg) RSV (RT-PCR) (Neg) 05/16/23 05/16/23 Range/Units 08:25 09:26 WBC (4.8-10.8) K/ul RBC (4.70-6.10) M/uL Hgb (14.0-18.0) g/dl Hct (42.0-52.0) % MCV (80.0-100.0) fL MCH (25.0-34.0) pg MCHC (32.0-36.0) g/dL RDW Std Deviation (36.4-46.3) fL RDW Coeff of Chantal (11.5-14.5) % Plt Count (130-400) K/uL MPV (9.4-12.4) fL Immature Gran % (Auto) % Neut % (Auto) % Lymph % (Auto) % [place] % (Auto) % Eos % (Auto) % Baso % (Auto) % Neut # (Auto) (1.40-6.50) K/uL Lymph # (Auto) (1.2-3.4) K/uL [place] # (Auto) (0.11-0.59) K/uL Eos # (Auto) (0-0.50) K/uL Baso # (Auto) (0-0.2) K/uL Immature Gran # (Auto) (0.01-0.20) K/uL PT (9.0-12.0) Seconds INR (0.9-1.1) APTT (21.0-31.0) Seconds PTT Ratio VBG pH 7.36 (7.36-7.41) VBG pCO2 45 (38-50) mmHg VBG pO2 24 mmHg VBG HCO3 25 mmol/L VBG O2 Saturation < 60.0 % VBG Base Excess -0.4 mEq/L Sodium (136-145) mmol/L Potassium (3.5-5.1) mmol/L Chloride (98-107) mmol/L Carbon Dioxide (21-32) mmol/L Anion Gap (3-11) BUN (6-23) mg/dl Creatinine (0.6-1.4) mg/dl Est Cr Clr Drug Dosing ml/min Est GFR ( Amer) ml/min Est GFR (Non-Af Amer) ml/min BUN/Creatinine Ratio (10-20) Glucose (70-99(Fasting)) mg/dl Lactate (0.4-2.0) mmol/L Calcium (8.6-10.3) mg/dl Magnesium (1.7-2.4) mg/dl Total Bilirubin (0.2-1.0) mg/dl Direct Bilirubin (0-0.2) mg/dl AST (13-39) U/L ALT (7-52) U/L Alkaline Phosphatase (34-104) U/L Troponin I High Sens (0-20) pg/ml Total Protein (6.0-8.3) gm/dl Albumin (3.4-5.0) gm/dl Procalcitonin (0-0.5) ng/ml Nasal Screen MRSA (PCR) (Negative) SARS-CoV-2 (PCR) NEGATIVE (Negative) Influenza Type A (PCR) Negative (Neg) Influenza Type B (PCR) Negative (Neg) RSV (RT-PCR) Negative (Neg) Administered Medications Discontinued Medications Albuterol (Albut/Ipratrop 3mg/0.5mg Neb 3 Ml Vial) 3 ml NEB NOW STA; Protocol Stop: 05/16/23 07:30 Last Admin: 05/16/23 07:58 Dose: 3 ml Documented By: ANJUM Albuterol (Albut/Ipratrop 3mg/0.5mg Neb 3 Ml Vial) 3 ml NEB NOW STA; Protocol Stop: 05/16/23 11:15 Last Admin: 05/16/23 11:31 Dose: 3 ml Documented By: JORDAN Dexamethasone Sodium Phosphate (DexamethasonePf 10 Mg/Ml Vial) 10 mg IV NOW ONE Stop: 05/16/23 07:30 Last Admin: 05/16/23 07:58 Dose: 10 mg Documented By: ANJUM Sodium Chloride (Nss 1000ml) 1,000 mls @ 999 mls/hr IV .Q1H1M TONI Stop: 05/16/23 08:30 Last Infusion: 05/16/23 09:21 Dose: 0 mls/hr Documented By: Admin: 05/16/23 07:59 Dose: 999 mls/hr Documented By: ANJUM Cefepime HCl (Maxipime) 2,000 mg in 20 mls @ 5 mls/min IV NOW STA Stop: 05/16/23 08:19 Last Admin: 05/16/23 09:07 Dose: 5 mls/min Documented By: APURVA Doxycycline Hyclate 100 mg/ (Dextrose) 110 mls @ 50 mls/hr IV NOW STA Stop: 05/16/23 10:27 Last Infusion: 05/16/23 11:31 Dose: 0 mls/hr Documented By: Admin: 05/16/23 09:07 Dose: 50 mls/hr Documented By: APURVA Imaging Data Radiologist's Impression: Chest X-Ray 05/16/23 07:29 XR chest 1V portable CLINICAL HISTORY: Sepsis. COMPARISON STUDY: Chest radiograph October 19, [address] April 09, 2023. FINDINGS: There is no pneumothorax. Possible trace bilateral pleural effusions. Right lower lung opacity has increased since prior chest CT. Left infrahilar opacity favors round atelectasis when correlating with prior chest CT. Emphysema is present. Cardiomegaly is unchanged. There is mild interstitial thickening. IMPRESSION: 1. Increase in right lower lung opacity. This favors pneumonia. However, post treatment radiographs to ensure resolution and exclude the possibility of an underlying lesion are recommended. 2. Cardiomegaly pulmonary vascular congestion. Suspected trace bilateral pleural effusions. 3. Left lower lobe airspace opacity which favors round atelectasis when cor relating with prior CT. ACT 112: Negative or not required by law. Electronically signed by: Mihir Huynh M.D. 05/16/2023 8:29 AM Discharge Plan Visit Data Chief Complaint: Illness Stated Complaint: SOB, FALL ED Provider: Robert Cuellar Discharge Problem: Right middle lobe pneumonia, Acute respiratory failure with hypoxia Discharge Instructions Interventions: ED Discharge Assessment Last Done: 05/16/23 11:25 Forms Stand Alone Forms: [employer] Prescriptions Prescriptions: No Action methimazole 10 mg tablet 10 mg PO DAILY Qty: 30 2RF acetaminophen [Tylenol] 325 mg tablet 325 mg PO Q6H PRN (Reason: fever or pain) cholecalciferol (vitamin D3) 1,000 unit (25 mcg) tablet 2,000 units PO QAM aspirin 81 mg Tablet,Delayed Release (Dr/Ec) 81 mg PO QAM gabapentin 600 mg tablet 600 mg PO HS Referrals Referrals: PCP,NO [Physician] - Right middle lobe pneumonia Qualifiers: Pneumonia type: due to unspecified organism Qualified Code(s): J18.9 - Pneumonia, unspecified organism
[2023-05-16] MEDS ORDERED: CEFEPIME 2,000 MG/20 ML VIAL IV STA (08:16)
[2023-05-16] MEDS ORDERED: DOXYCYCLINE HYCLATE 100 MG in DEXTROSE 5% 100 ML IV STA (08:16)
[2023-05-16 08:28] LABS: Basophils # (auto) 0.05 K/uL (0-0.2); Basophils % (auto) 0.4 %; Eosinophils # (auto) 0.02 K/uL (0-0.50); Eosinophils % (auto) 0.2 %; Hematocrit (blood only) 38.4 % (42.0-52.0); Hemoglobin 12.9 g/dl (14.0-18.0); Immature Granulocytes # (auto) 0.05 K/uL (0.01-0.20); Immature Granulocytes % (auto) 0.4 %; Lymphocytes # (auto) 0.98 K/uL (1.2-3.4); Lymphocytes % (auto) 8.3 %; Mean Corpuscular Hemoglobin 31.1 pg (25.0-34.0); Mean Corpuscular Hgb Conc 33.6 g/dL (32.0-36.0); Mean Corpuscular Volume 92.5 fL (80.0-100.0); Mean Platelet Volume 10.4 fL (9.4-12.4); Monocytes # (auto) 1.32 K/uL (0.11-0.59); Monocytes % (auto) 11.1 %; Neutrophils # (auto) 9.45 K/uL (1.40-6.50); Neutrophils % (auto) 79.6 %; Platelet Count 245 K/uL (130-400); RDW Coefficient of Variation 13.2 % (11.5-14.5); RDW Standard Deviation 44.7 fL (36.4-46.3); Red Blood Count 4.15 M/uL (4.70-6.10); White Blood Count 11.87 K/ul (4.8-10.8)
--- NOTE | 2023-05-16 08:32 | XRay Report ---
XR chest 1V portable CLINICAL HISTORY: Sepsis. COMPARISON STUDY: Chest radiograph October 19, [address] April 09, 2023. FINDINGS: There is no pneumothorax. Possible trace bilateral pleural effusions. Right lower lung opac ity has increased since prior chest CT. Left infrahilar opacity favors round atelectasis when correla ting with prior chest CT. Emphysema is present. Cardiomegaly is unchanged. There is mild interstitial thickening. IMPRESSION: 1. Increase in right lower lung opacity. This favors pneumonia. However, post treatment radiographs t o ensure resolution and exclude the possibility of an underlying lesion are recommended. 2. Cardiomegaly pulmonary vascular congestion. Suspected trace bilateral pleural effusions. 3. Left lower lobe airspace opacity which favors round atelectasis when correlating with prior CT. ACT 112: Negative or not required by law. Electronically signed by: Mihir Huynh M.D. 05/16/2023 8:29 AM
[2023-05-16 08:36] LABS: Base Excess VBG -0.4 mEq/L; HCO3 VBG 25 mmol/L; Oxygen Saturation VBG < 60.0 %; PCO2 VBG 45 mmHg (38-50); PO2 VBG 24 mmHg; pH VBG 7.36 (7.36-7.41)
[2023-05-16 08:44] LABS: Albumin Level 3.2 gm/dl (3.4-5.0); BUN Creatinine Ratio 19.4 (10-20); Bilirubin Direct 0.3 mg/dl (0-0.2); Bilirubin,Total 0.9 mg/dl (0.2-1.0); Calcium 8.7 mg/dl (8.6-10.3); Creatinine Clr Calc Pharmacy 39.4 ml/min; Est GFR (African American) 51.3 ml/min; Est GFR (Non-African American) 44.3 ml/min; Magnesium 1.9 mg/dl (1.7-2.4); Total Protein 6.4 gm/dl (6.0-8.3)
[2023-05-16 08:55] LABS: Troponin I High Sensitivity 51.2 pg/ml (0-20)
[2023-05-16 08:59] LABS: Partial Thromboplastin Time 28.5 Seconds (21.0-31.0); Prothrombin Time 10.9 Seconds (9.0-12.0)
[2023-05-16 10:41] LABS: Influenza A virus by PCR Negative (Neg); Influenza B virus by PCR Negative (Neg); RSV by PCR Negative (Neg); SARS CoV2 RNA(COVID-19) Ceph NEGATIVE (Negative)
[2023-05-16] MEDS ORDERED: SODIUM CHLOR 7% 4 ML NEB NEB STA (11:14)
--- NOTE | 2023-05-16 11:32 | History & Physical Report ---
Date of Service May 16, 2023 Assessment & Plan (1) Acute hypoxemic respiratory failure: (2) Pneumonia: Plan: Patient presents to the ED with 3-day history of cough, generalized weakness and fever. On presentation to the ED, he was hypoxic with SPO2 of 84% in room air. He was afebrile and normotensive. On examination; has bilateral wheeze and decreased breath sound in right middle lung field. Labs remarkable for elevated WBC count and mild hyponatremia. Chest x-ray personally reviewed; infiltrates in right middle lobe. Pro-Tito elevated Started on cefepime and doxycycline. Obtain Gram stain and sputum culture, urine Legionella antigen. Continue supplemental oxygen to keep saturation above 92%; wean off as tolerated ORE DIGGER eval evaluation to rule out aspiration. DuoNebs, hypertonic saline for airway clearance. Started on methylprednisolone 40 mg twice daily. No known history of COPD; patient former smoker. Also started on budesonide and formoterol nebs PT OT eval (3) Elevated troponin: Plan: High sensitive troponin elevated to 51.2. Likely due to demand ischemia Patient denies chest pain. EKG personally reviewed; normal sinus rhythm with nonspecific ST or T wave changes and PVC Obtain echocardiogram, trend troponin. 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 Repeat TSH and free T4. hypertensionnot on any medication. 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 Avoid nephrotoxic agents. BMP daily Time spent evaluating patient, direct bedside care, chart review, placing orders, interpretation of diagnostic studies, discussion with consultants, patient, and family members, as well as other required patient management activ ities is 88 minutes. Please note the above document was generated using voice recognition software. It may contain grammatical, syntax or spelling errors. Any formal questions or concerns about the content, text or information contained within the body of this dictation should be directly addressed to the provider for clarification History of Present Illness Chief Complaint: Cough, generalized weakness and fever for 3 days Primary Care Provider: Corby Zuniga, History obtained from chart review and interview with the patient. 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 Patient reports that he started to feel unwell 3 days before with onset of cough with mucopurulent sputum; no blood seen. He also reported a gradual onset of generalized weakness in those 3 days. Patient woke up at 1 AM in the morning; sat on the chair and slid down due to feeling weak and was unable to get up till EMS arrived. He reports having fever; did not measure temperature at home. He denies headache, visual changes, chest pain or shortness of breath. He denies any sick contacts or recent travel. Patient lives with his ; is independent of all his ADLs. Quit smoking in 2000. On presentation to the ED, he was hypoxic with SPO2 of 84% in room air. He was afebrile and normotensive. Labs remarkable for elevated WBC count and mild hyponatremia. Chest x-ray shows increasing infiltrate in right middle lobe. Patient was given DuoNebs, dexamethasone 10 mg, 1 L normal saline, cefepime and doxycycline. Supplemental oxygen was provided with nasal cannula. Patient was then admitted to PCU. Allergies Allergy/AdvReac Type Severity Reaction Status Date / Time No Known Allergies Allergy Verified 05/16/23 08:44 Home Medications Medication Instructions Recorded Confirmed Type acetaminophen 325 mg tablet 325 mg PO Q6H PRN fever or pain 08/23/19 05/16/23 History (Tylenol) cholecalciferol (vitamin D3) 25 2,000 units PO QAM 08/23/19 05/16/23 History mcg (1,000 unit) tablet aspirin 81 mg tablet,delayed 81 mg PO QAM 12/17/19 05/16/23 History release methimazole 10 mg tablet 10 mg PO DAILY #30 tabs 04/16/23 05/16/23 Rx gabapentin 600 mg tablet 600 mg PO HS 05/16/23 05/16/23 History Past Med/Surg History Medical History (Updated 05/16/23 @ 11:24 by Matty Conrad MD) Community acquired pneumonia Former smoker Lymphoma 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 Polyp of colon RSV infection Surgical History H/O varicose vein ligation Family History Father , Age 91 Renal failure Mother Breast cancer Denies family history of Ovarian cancer Prostate cancer Myocardial infarction Colorectal cancer Social History (Updated 02/25/23 @ 08:07 by Sudha Mchugh LPN) Smoking Status: Former smoker Tobacco Type: Cigarettes Age Quit Using Tobacco: 61; Second Hand Exposure: No; Do You Dip or Chew Tobacco: No; Hx Alcohol Use: Yes Alcohol type: beer Hx Substance Use: No Preferred Language: Swedish Communication Ability: Effective Visual Impairment: No Limitations Hearing Ability: Hard of Hearing Evaluation Manager Required: No Beliefs That Will Affect Care: None marital status: Current Living Situation: Spouse Current Living Situation Comment: trailer current occupational status: retired How many Children do You have: 1 Feels Safe at Home: Yes Childhood Exposure to Second-Hand Smoke: No Diet: regular caffeine: Yes Dental Care, Regularly: No Physical Activity Frequency: Does not Exercise Seatbelt Use: always Sunscreen Use: No Assistive Devices: Cane Review of Systems Review of Systems: All systems reviewed & are unremarkable except as noted in Subjective Physical Exam Physical Exam: Constitutional: Alert orient x3; appears tired. Respiratory: Bilateral wheeze heard. Decreased breath sound on right middle lobe. Cardiovascular: RRR, no murmur, no edema Vessels: no JVD or carotid bruit Chest: normal inspection of chest Abdomen: normal bowel sounds, soft, nontender, no hepatosplenomegaly Musculoskeletal: no cyanosis or clubbing, extremities motor strength 5/5 Skin: no rashes, warm and dry normal turgor Neurologic: PERRL, EOMI, accommodation nl, no face palsy, no dysarthria CN's II- XI intact bilaterally and moves all extremities Psychiatric: A+Ox3, euthymic affect Results & Data Results & Data Vital Signs (Past 12 Hours) Vital Signs Temp Pulse Pulse Resp BP BP Pulse Ox 05/16/23 10:00 94 H 18 104/71 94 05/16/23 08:11 84 L 05/16/23 08:03 87 05/16/23 07:30 89 28 H 98 05/16/23 07:30 37.2 C 95 H 22 141/86 H 97 O2 Del Method O2 Flow Rate 05/16/23 10:00 Nasal Cannula 4 05/16/23 08:11 Nasal Cannula 0 05/16/23 08:03 05/16/23 07:30 Nasal Cannula 5 05/16/23 07:30 Room Air Laboratory Results Laboratory Results WBC 11.87 K/ul (4.8-10.8) H 05/16/23 08:01 RBC 4.15 M/uL (4.70-6.10) L 05/16/23 08:01 Hgb 12.9 g/dl (14.0-18.0) L 05/16/23 08:01 Hct 38.4 % (42.0-52.0) L 05/16/23 08:01 MCV 92.5 fL (80.0-100.0) 05/16/23 08:01 MCH 31.1 pg (25.0-34.0) 05/16/23 08:01 MCHC 33.6 g/dL (32.0-36.0) 05/16/23 08:01 RDW Std Deviation 44.7 fL (36.4-46.3) 05/16/23 08:01 RDW Coeff of Chantal 13.2 % (11.5-14.5) 05/16/23 08:01 Plt Count 245 K/uL (130-400) 05/16/23 08:01 MPV 10.4 fL (9.4-12.4) 05/16/23 08:01 Immature Gran % (Auto) 0.4 % 05/16/23 08:01 Neut % (Auto) 79.6 % 05/16/23 08:01 Lymph % (Auto) 8.3 % 05/16/23 08:01 [place] % (Auto) 11.1 % 05/16/23 08:01 Eos % (Auto) 0.2 % 05/16/23 08:01 Baso % (Auto) 0.4 % 05/16/23 08:01 Neut # (Auto) 9.45 K/uL (1.40-6.50) H 05/16/23 08:01 Lymph # (Auto) 0.98 K/uL (1.2-3.4) L 05/16/23 08:01 [place] # (Auto) 1.32 K/uL (0.11-0.59) H 05/16/23 08:01 Eos # (Auto) 0.02 K/uL (0-0.50) 05/16/23 08:01 Baso # (Auto) 0.05 K/uL (0-0.2) 05/16/23 08:01 Immature Gran # (Auto) 0.05 K/uL (0.01-0.20) 05/16/23 08:01 PT 10.9 Seconds (9.0-12.0) 05/16/23 08:01 INR 1.0 (0.9-1.1) 05/16/23 08:01 APTT 28.5 Seconds (21.0-31.0) 05/16/23 08:01 PTT Ratio 1.0 05/16/23 08:01 VBG pH 7.36 (7.36-7.41) 05/16/23 08:25 VBG pCO2 45 mmHg (38-50) 05/16/23 08:25 VBG pO2 24 mmHg 05/16/23 08:25 VBG HCO3 25 mmol/L 05/16/23 08:25 VBG O2 Saturation < 60.0 % 05/16/23 08:25 VBG Base Excess -0.4 mEq/L 05/16/23 08:25 Sodium 132 mmol/L (136-145) L 05/16/23 08:01 Potassium 4.0 mmol/L (3.5-5.1) 05/16/23 08:01 Chloride 100 mmol/L (98-107) 05/16/23 08:01 Carbon Dioxide 25 mmol/L (21-32) 05/16/23 08:01 Anion Gap 7 (3-11) 05/16/23 08:01 BUN 28 mg/dl (6-23) H 05/16/23 08:01 Creatinine 1.44 mg/dl (0.6-1.4) H 05/16/23 08:01 Est Cr Clr Drug Dosing 39.4 ml/min 05/16/23 08:01 Est GFR ( Amer) 51.3 ml/min 05/16/23 08:01 Est GFR (Non-Af Amer) 44.3 ml/min 05/16/23 08:01 BUN/Creatinine Ratio 19.4 (10-20) 05/16/23 08:01 Glucose 118 mg/dl (70-99(Fasting)) H 05/16/23 08:01 Lactate 1.2 mmol/L (0.4-2.0) 05/16/23 08:01 Calcium 8.7 mg/dl (8.6-10.3) 05/16/23 08:01 Magnesium 1.9 mg/dl (1.7-2.4) 05/16/23 08:01 Total Bilirubin 0.9 mg/dl (0.2-1.0) 05/16/23 08:01 Direct Bilirubin 0.3 mg/dl (0-0.2) H 05/16/23 08:01 AST 37 U/L (13-39) 05/16/23 08:01 ALT 53 U/L (7-52) H 05/16/23 08:01 Alkaline Phosphatase 115 U/L (34-104) H 05/16/23 08:01 Troponin I High Sens 51.2 pg/ml (0-20) H* 05/16/23 08:01 Total Protein 6.4 gm/dl (6.0-8.3) 05/16/23 08:01 Albumin 3.2 gm/dl (3.4-5.0) L 05/16/23 08:01 Procalcitonin 1.57 ng/ml (0-0.5) H 05/16/23 08:01 Nasal Screen MRSA (PCR) Negative (Negative) 05/16/23 08:17 SARS-CoV-2 (PCR) NEGATIVE (Negative) 05/16/23 09:26 Influenza Type A (PCR) Negative (Neg) 05/16/23 09:26 Influenza Type B (PCR) Negative (Neg) 05/16/23 09:26 RSV (RT-PCR) Negative (Neg) 05/16/23 09:26 Impressions Chest X-Ray 05/16/23 07:29 XR chest 1V portable CLINICAL HISTORY: Sepsis. COMPARISON STUDY: Chest radiograph October 19, [address] April 09, 2023. FINDINGS: There is no pneumothorax. Possible trace bilateral pleural effusions. Right lower lung opacity has increased since prior chest CT. Left infrahilar opacity favors round atelectasis when correlating with prior chest CT. Emphysema is present. Cardiomegaly is unchanged. There is mild interstitial thickening. IMPRESSION: 1. Increase in right lower lung opacity. This favors pneumonia. However, post treatment radiographs to ensure resolution and exclude the possibility of an underlying lesion are recommended. 2. Cardiomegaly pulmonary vascular congestion. Suspected trace bilateral pleural effusions. 3. Left lower lobe airspace opacity which favors round atelectasis when correlating with prior CT. ACT 112: Negative or not required by law. Electronically signed by: Mihir Huynh M.D. 05/16/2023 8:29 AM Code Status & VTE Plan VTE Prophylaxis Plan VTE Prophylaxis will be ordered: Yes
[2023-05-16] MEDS ORDERED: FORMOTEROL 20 MCG/2 ML VIAL NEB SCH (12:38)
[2023-05-16] MEDS ORDERED: NITROGLYCERIN SL 0.4 MG/TAB TAB SL PRN (12:38)
[2023-05-16] MEDS ORDERED: POLYETHYLENE (MIRALAX) 17 GM PACK PO PRN (12:38)
[2023-05-16] MEDS ORDERED: MAGNESIUM HYDROXIDE SUSP 30 ML UDC PO PRN (12:38)
[2023-05-16] MEDS ORDERED: ALUMINUM/MAGNESIUM SUSP 30 ML UDC PO PRN (12:38)
[2023-05-16] MEDS ORDERED: SODIUM CHLOR 7% 4 ML NEB ONE (13:55)
[2023-05-16] MEDS: FORMOTEROL 20 MCG/2 ML VIAL NEB SCH ×2 (13:59→19:37)
[2023-05-16] MEDS: ALBUT/IPRATROP 3MG/0.5MG NEB 3 ML VIAL NEB SCH ×3 (14:08→19:37)
[2023-05-16] MEDS: HEPARIN SOD 5,000 UNIT/0.5 ML VIAL SQ SCH ×2 (15:16→21:00)
[2023-05-16] MEDS: CEFEPIME 2,000 MG in SYRINGE 0 ML IV SCH (17:32)
[2023-05-16] MEDS: SODIUM CHLOR 7% 4 ML NEB NEB SCH (19:37)
[2023-05-16] MEDS: BUDESONIDE 0.5 MG/2 ML VIAL (PULMICORT) NEB SCH (19:37)
[2023-05-16] MEDS: GABAPENTIN 600 MG TAB PO SCH (20:50)
[2023-05-16] MEDS: DOXYCYCLINE HYCLATE 100 MG CAP PO SCH (20:50)
--- NOTE | 2023-05-16 21:28 | XCELERA ---
[id number]
[2023-05-16 21:41] LABS: Appearance Urine Clear (Clear); Bacteria Urine Automated Negative (Negative); Bilirubin Urine Negative (Negative); Blood Urine Negative (Negative); Color Urine Yellow; Glucose Urine UA 3+ (Negative); Ketones Urine Negative (Negative); Leukocyte Esterase Urine Negative (Negative); Nitrite Urine Negative (Negative); Protein Urine Trace (Negative); Specific Gravity Urine 1.023 (1.000-1.030); Urobilinogen Urine Negative (Negative)
[2023-05-17] MEDS: CEFEPIME 2,000 MG in SYRINGE 0 ML IV SCH ×2 (04:03→15:32)
[2023-05-17] MEDS: HEPARIN SOD 5,000 UNIT/0.5 ML VIAL SQ SCH ×3 (05:05→21:26)
[2023-05-17 06:01] LABS: Basophils # (auto) 0.02 K/uL (0-0.2); Basophils % (auto) 0.2 %; Immature Granulocytes # (auto) 0.04 K/uL (0.01-0.20); Immature Granulocytes % (auto) 0.5 %; Lymphocytes # (auto) 0.62 K/uL (1.2-3.4); Lymphocytes % (auto) 7.6 %; Mean Corpuscular Hemoglobin 30.5 pg (25.0-34.0); Mean Corpuscular Hgb Conc 34.3 g/dL (32.0-36.0); Mean Corpuscular Volume 88.8 fL (80.0-100.0); Mean Platelet Volume 10.5 fL (9.4-12.4); Monocytes # (auto) 0.44 K/uL (0.11-0.59); Monocytes % (auto) 5.4 %; Neutrophils # (auto) 7.01 K/uL (1.40-6.50); Neutrophils % (auto) 86.3 %; Platelet Count 255 K/uL (130-400); RDW Coefficient of Variation 12.9 % (11.5-14.5); RDW Standard Deviation 42.3 fL (36.4-46.3); Red Blood Count 3.94 M/uL (4.70-6.10); White Blood Count 8.13 K/ul (4.8-10.8)
[2023-05-17 06:20] LABS: Albumin Level 3.1 gm/dl (3.4-5.0); BUN Creatinine Ratio 22.7 (10-20); Bilirubin,Total 0.6 mg/dl (0.2-1.0); Calcium 8.6 mg/dl (8.6-10.3); Chol HDL Ratio 2.8 (0-5); Creatinine Clr Calc Pharmacy 47.7 ml/min; Est GFR (African American) 64.6 ml/min; Est GFR (Non-African American) 55.8 ml/min; Potassium 4.5 mmol/L (3.5-5.1); Total Protein 6.1 gm/dl (6.0-8.3)
[2023-05-17] MEDS: FORMOTEROL 20 MCG/2 ML VIAL NEB SCH ×2 (07:28→19:44)
[2023-05-17] MEDS: BUDESONIDE 0.5 MG/2 ML VIAL (PULMICORT) NEB SCH ×2 (07:28→19:44)
[2023-05-17] MEDS: ALBUT/IPRATROP 3MG/0.5MG NEB 3 ML VIAL NEB SCH ×3 (07:31→19:45)
[2023-05-17] MEDS: SODIUM CHLOR 7% 4 ML NEB NEB SCH ×2 (07:46→19:44)
[2023-05-17] MEDS: ASPIRIN 81 MG ECTAB PO SCH (08:14)
[2023-05-17] MEDS: DOXYCYCLINE HYCLATE 100 MG CAP PO SCH ×2 (08:14→20:55)
[2023-05-17] MEDS: CHOLECALCIFEROL 1,000 UNITS 25 MCG TAB PO SCH (08:14)
[2023-05-17] MEDS: methIMAzole 5 MG TABLET PO SCH (08:14)
[2023-05-17] MEDS ORDERED: methylPREDNISolone 40 MG in SYRINGE 0 ML IV SCH (09:00)
[2023-05-17] MEDS ORDERED: FUROSEMIDE INJ 20 MG/2 ML VIAL IV ONE (13:58)
--- NOTE | 2023-05-17 13:59 | Hospitalist Progress Note ---
Date of Service May 17, 2023 Assessment & Plan (1) Acute hypoxemic respiratory failure: (2) Pneumonia: Plan: Patient presents to the ED with 3-day history of cough, generalized weakness and fever. On presentation to the ED, he was hypoxic with SPO2 of 84% in room air. He was afebrile and normotensive. On examination; has bilateral wheeze and decreased breath sound in right middle lung field. Leukocytosis present on admission; improved on subsequent lab work BNP elevated to 1785 Pro-Tito elevated Sputum culture showed normal oral aracelis. Speech evaluation done; recommend regular diet. Continue on cefepime and doxycycline day 2. Plan for VF SS tomorrow. Continue supplemental oxygen to keep saturation above 92%; wean off as tolerated DuoNebs, hypertonic saline for airway clearance. Started on steroids given bilateral wheeze on examination. Will provide 5-day course no known history of COPD; patient former smoker. Also started on budesonide and formoterol nebs PT OT eval (3) Elevated troponin: Plan: High sensitive troponin elevated to 51.2, next troponin was 50.3. Likely due to demand ischemia Patient denies chest pain. EKG personally reviewed; normal sinus rhythm with nonspecific ST or T wave changes and PVC Echocardiogram reviewed; EF of 55 to 60%, right ventricular moderately dilated with severe pulmonary hypertension. Will provide 1 dose of IV Lasix. 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 TSH improved compared to previous lab work. Free T4 pending. hypertensionnot on any medication. 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 Avoid nephrotoxic agents. BMP daily Time spent evaluating patient, direct bedside care, chart review, placing orders, interpretation of diagnostic studies, discussion with consultants, patient, and family members, as well as other required patient management activities is 60 minutes. Please note the above document was generated using voice recognition software. It may contain grammatical, syntax or spelling errors. Any formal questions or concerns about the content, text or information contained within the body of this dictation should be directly addressed to the provider for clarification Admission and Anticipated Discharge Date Admission Date: May 16, 2023 Subjective Patient seen and examined at bedside. He reports that he is feeling much better compared to yesterday. He is sitting up; coughing up large amount of sputum. Telemetry shows sinus rhythm with heart rate in 8220. Review of Systems Review of Systems: All systems reviewed & are unremarkable except as noted in Subjective Physical Exam Physical Exam: Constitutional: Alert orient x3; appears tired. Respiratory: Occasional wheeze heard. Decreased breath sound on right middle lobe. Cardiovascular: RRR, no murmur, no edema Vessels: no JVD or carotid bruit Chest: normal inspection of chest Abdomen: normal bowel sounds, soft, nontender, no hepatosplenomegaly Musculoskeletal: no cyanosis or clubbing, extremities motor strength 5/5 Skin: no rashes, warm and dry normal turgor Neurologic: PERRL, EOMI, accommodation nl, no face palsy, no dysarthria CN's II- XI intact bilaterally and moves all extremities Psychiatric: A+Ox3, euthymic affect Results & Data Results & Data Vital Signs (Past 12 Hours) Vital Signs Temp Pulse Pulse Resp BP BP Pulse Ox 05/17/23 11:43 37.0 C 107 H 20 145/83 H 91 05/17/23 11:19 84 14 94 05/17/23 10:11 05/17/23 08:30 05/17/23 07:38 36.4 C L 83 20 150/81 H 96 05/17/23 07:30 87 16 93 05/17/23 06:42 102 H 05/17/23 04:15 36.7 C 72 20 142/77 H 92 Pulse Ox Pulse Ox Pulse Ox O2 Del Method O2 Flow Rate O2 Flow Rate O2 Flow Rate 05/17/23 11:43 Nasal Cannula 3 05/17/23 11:19 Nasal Cannula 3 05/17/23 10:11 90 88 L 79 L 3 3 05/17/23 08:30 Nasal Cannula 2 05/17/23 07:38 Nasal Cannula 3 05/17/23 07:30 Nasal Cannula 3 05/17/23 06:42 05/17/23 04:15 Nasal Cannula 3 O2 Flow Rate 05/17/23 11:43 05/17/23 11:19 05/17/23 10:11 3 05/17/23 08:30 05/17/23 07:38 05/17/23 07:30 05/17/23 06:42 05/17/23 04:15 Laboratory Results Laboratory Results WBC 8.13 K/ul (4.8-10.8) 05/17/23 05:30 RBC 3.94 M/uL (4.70-6.10) L 05/17/23 05:30 Hgb 12.0 g/dl (14.0-18.0) L 05/17/23 05:30 Hct 35.0 % (42.0-52.0) L 05/17/23 05:30 MCV 88.8 fL (80.0-100.0) 05/17/23 05:30 MCH 30.5 pg (25.0-34.0) 05/17/23 05:30 MCHC 34.3 g/dL (32.0-36.0) 05/17/23 05:30 RDW Std Deviation 42.3 fL (36.4-46.3) 05/17/23 05:30 RDW Coeff of Chantal 12.9 % (11.5-14.5) 05/17/23 05:30 Plt Count 255 K/uL (130-400) 05/17/23 05:30 MPV 10.5 fL (9.4-12.4) 05/17/23 05:30 Immature Gran % (Auto) 0.5 % 05/17/23 05:30 Neut % (Auto) 86.3 % 05/17/23 05:30 Lymph % (Auto) 7.6 % 05/17/23 05:30 [place] % (Auto) 5.4 % 05/17/23 05:30 Eos % (Auto) 0.0 % 05/17/23 05:30 Baso % (Auto) 0.2 % 05/17/23 05:30 Neut # (Auto) 7.01 K/uL (1.40-6.50) H 05/17/23 05:30 Lymph # (Auto) 0.62 K/uL (1.2-3.4) L 05/17/23 05:30 [place] # (Auto) 0.44 K/uL (0.11-0.59) 05/17/23 05:30 Eos # (Auto) 0.00 K/uL (0-0.50) 05/17/23 05:30 Baso # (Auto) 0.02 K/uL (0-0.2) 05/17/23 05:30 Immature Gran # (Auto) 0.04 K/uL (0.01-0.20) 05/17/23 05:30 PT 10.9 Seconds (9.0-12.0) 05/16/23 08:01 INR 1.0 (0.9-1.1) 05/16/23 08:01 APTT 28.5 Seconds (21.0-31.0) 05/16/23 08:01 PTT Ratio 1.0 05/16/23 08:01 VBG pH 7.36 (7.36-7.41) 05/16/23 08:25 VBG pCO2 45 mmHg (38-50) 05/16/23 08:25 VBG pO2 24 mmHg 05/16/23 08:25 VBG HCO3 25 mmol/L 05/16/23 08:25 VBG O2 Saturation < 60.0 % 05/16/23 08:25 VBG Base Excess -0.4 mEq/L 05/16/23 08:25 Sodium 133 mmol/L (136-145) L 05/17/23 05:30 Potassium 4.5 mmol/L (3.5-5.1) 05/17/23 05:30 Chloride 101 mmol/L (98-107) 05/17/23 05:30 Carbon Dioxide 25 mmol/L (21-32) 05/17/23 05:30 Anion Gap 7 (3-11) 05/17/23 05:30 BUN 27 mg/dl (6-23) H 05/17/23 05:30 Creatinine 1.19 mg/dl (0.6-1.4) 05/17/23 05:30 Est Cr Clr Drug Dosing 47.7 ml/min 05/17/23 05:30 Est GFR ( Amer) 64.6 ml/min 05/17/23 05:30 Est GFR (Non-Af Amer) 55.8 ml/min 05/17/23 05:30 BUN/Creatinine Ratio 22.7 (10-20) H 05/17/23 05:30 Glucose 175 mg/dl (70-99(Fasting)) H 05/17/23 05:30 Lactate 1.2 mmol/L (0.4-2.0) 05/16/23 08:01 Calcium 8.6 mg/dl (8.6-10.3) 05/17/23 05:30 Magnesium 1.9 mg/dl (1.7-2.4) 05/16/23 08:01 Total Bilirubin 0.6 mg/dl (0.2-1.0) 05/17/23 05:30 Direct Bilirubin 0.3 mg/dl (0-0.2) H 05/16/23 08:01 AST 114 U/L (13-39) H 05/17/23 05:30 ALT 113 U/L (7-52) H 05/17/23 05:30 Alkaline Phosphatase 83 U/L (34-104) 05/17/23 05:30 Troponin I High Sens 50.3 pg/ml (0-20) H* 05/16/23 11:34 B-Natriuretic Peptide 1785 pg/ml (0-100) H 05/16/23 12:48 Total Protein 6.1 gm/dl (6.0-8.3) 05/17/23 05:30 Albumin 3.1 gm/dl (3.4-5.0) L 05/17/23 05:30 Globulin 3.0 gm/dl (2.5-4.0) 05/17/23 05:30 Albumin/Globulin Ratio 1.0 (0.9-2) 05/17/23 05:30 Triglycerides 68 mg/dl (0-150) 05/17/23 05:30 Cholesterol 135 mg/dl (0-200) 05/17/23 05:30 LDL Cholesterol, Calc 73 mg/dl 05/17/23 05:30 VLDL Cholesterol, Calc 14 mg/dl (0-30) 05/17/23 05:30 HDL Cholesterol 48 mg/dl 05/17/23 05:30 Cholesterol/HDL Ratio 2.8 (0-5) 05/17/23 05:30 Procalcitonin 1.57 ng/ml (0-0.5) H 05/16/23 08:01 TSH 0.031 uIu/ml (0.300-4.500) L 05/17/23 05:30 Urine Color Yellow 05/16/23 20:57 Urine Appearance Clear (Clear) 05/16/23 20:57 Urine pH 5.0 (4.5-7.5) 05/16/23 20:57 Ur Specific [place] 1.023 (1.000-1.030) 05/16/23 20:57 Urine Protein Trace (Negative) H 05/16/23 20:57 Urine Glucose (UA) 3+ (Negative) H 05/16/23 20:57 Urine Ketones Negative (Negative) 05/16/23 20:57 Urine Blood Negative (Negative) 05/16/23 20:57 Urine Nitrite Negative (Negative) 05/16/23 20:57 Urine Bilirubin Negative (Negative) 05/16/23 20:57 Urine Urobilinogen Negative (Negative) 05/16/23 20:57 Ur Leukocyte Esterase Negative (Negative) 05/16/23 20:57 Urine WBC (Auto) 1-5 /hpf (0-5) 05/16/23 20:57 Urine RBC (Auto) 5-10 /hpf (0-4) H 05/16/23 20:57 U Hyaline Cast (Auto) 1-5 /lpf (0-5) 05/16/23 20:57 U Epithel Cells (Auto) 5-10 /lpf (0-5) H 05/16/23 20:57 Urine Bacteria (Auto) Negative (Negative) 05/16/23 20:57 Nasal Screen MRSA (PCR) Negative (Negative) 05/16/23 08:17 SARS-CoV-2 (PCR) NEGATIVE (Negative) 05/16/23 09:26 Influenza Type A (PCR) Negative (Neg) 05/16/23 09:26 Influenza Type B (PCR) Negative (Neg) 05/16/23 09:26 RSV (RT-PCR) Negative (Neg) 05/16/23 09:26 Impressions Chest X-Ray 05/16/23 07:29 XR chest 1V portable CLINICAL HISTORY: Sepsis. COMPARISON STUDY: Chest radiograph October 19, [address] April 09, 2023. FINDINGS: There is no pneumothorax. Possible trace bilateral pleural effusions. Right lower lung opacity has increased since prior chest CT. Left infrahilar opacity favors round atelectasis when correlating with prior chest CT. Emphysema is present. Cardiomegaly is unchanged. There is mild interstitial thickening. IMPRESSION: 1. Increase in right lower lung opacity. This favors pneumonia. However, post treatment radiographs to ensure resolution and exclude the possibility of an underlying lesion are recommended. 2. Cardiomegaly pulmonary vascular congestion. Suspected trace bilateral pleural effusions. 3. Left lower lobe airspace opacity which favors round atelectasis when correlating with prior CT. ACT 112: Negative or not required by law. Electronically signed by: Mihir Huynh M.D. 05/16/2023 8:29 AM
[2023-05-17] MEDS: GABAPENTIN 600 MG TAB PO SCH (20:55)
[2023-05-18] MEDS: CEFEPIME 2,000 MG in SYRINGE 0 ML IV SCH (05:19)
[2023-05-18] MEDS: HEPARIN SOD 5,000 UNIT/0.5 ML VIAL SQ SCH ×3 (05:31→19:41)
[2023-05-18 06:59] LABS: Basophils # (auto) 0.02 K/uL (0-0.2); Basophils % (auto) 0.2 %; Hemoglobin 12.9 g/dl (14.0-18.0); Immature Granulocytes # (auto) 0.17 K/uL (0.01-0.20); Immature Granulocytes % (auto) 1.4 %; Lymphocytes # (auto) 1.01 K/uL (1.2-3.4); Lymphocytes % (auto) 8.2 %; Mean Corpuscular Hemoglobin 30.6 pg (25.0-34.0); Mean Corpuscular Hgb Conc 34.9 g/dL (32.0-36.0); Mean Corpuscular Volume 87.9 fL (80.0-100.0); Mean Platelet Volume 10.5 fL (9.4-12.4); Monocytes % (auto) 6.5 %; Neutrophils # (auto) 10.38 K/uL (1.40-6.50); Neutrophils % (auto) 83.7 %; Platelet Count 357 K/uL (130-400); RDW Standard Deviation 41.5 fL (36.4-46.3); Red Blood Count 4.21 M/uL (4.70-6.10); White Blood Count 12.38 K/ul (4.8-10.8)
[2023-05-18] MEDS: FORMOTEROL 20 MCG/2 ML VIAL NEB SCH (07:02)
[2023-05-18] MEDS: SODIUM CHLOR 7% 4 ML NEB NEB SCH ×2 (07:02→19:18)
[2023-05-18] MEDS: BUDESONIDE 0.5 MG/2 ML VIAL (PULMICORT) NEB SCH (07:02)
[2023-05-18] MEDS: ALBUT/IPRATROP 3MG/0.5MG NEB 3 ML VIAL NEB SCH ×2 (07:02→19:16)
[2023-05-18 07:16] LABS: Albumin Globulin Ratio 1.1 (0.9-2); Albumin Level 3.3 gm/dl (3.4-5.0); Bilirubin,Total 0.6 mg/dl (0.2-1.0); Calcium 8.8 mg/dl (8.6-10.3); Creatinine Clr Calc Pharmacy 45.4 ml/min; Est GFR (African American) 60.9 ml/min; Est GFR (Non-African American) 52.5 ml/min; Globulin 3.1 gm/dl (2.5-4.0); Potassium 4.3 mmol/L (3.5-5.1); Total Protein 6.4 gm/dl (6.0-8.3)
--- NOTE | 2023-05-18 08:12 | Electrocardiogram Report ---
Test Reason : Blood Pressure : / mmHG Vent. Rate : 096 BPM Atrial Rate : 096 BPM P-R Int : 148 ms QRS Dur : 082 ms QT Int : 334 ms P-R-T Axes : 032 -50 014 degrees QTc Int : 421 ms Sinus rhythm with occasional Premature ventricular complexes Low voltage QRS Cannot rule out Anterior infarct , age undetermined Abnormal ECG When compared with ECG of 22-OCT-2022 06:05, Minimal criteria for Anterior infarct are now Present T wave inversion more evident in Anterior leads Confirmed by Samy Crockett ([id number]) on 05/18/2023 8:12:12 AM Referred By: REFERRED SELF Confirmed By:Samy Crockett
--- NOTE | 2023-05-18 08:53 | Electrocardiogram Report ---
Test Reason : Blood Pressure : / mmHG Vent. Rate : 127 BPM Atrial Rate : 127 BPM P-R Int : 150 ms QRS Dur : 088 ms QT Int : 286 ms P-R-T Axes : 028 -51 008 degrees QTc Int : 415 ms Sinus tachycardia with Premature supraventricular complexes Left atrial enlargement Left anterior fascicular block Poor R wave progression, consider anterior VT vs. lead placement vs. LVH Abnormal ECG When compared with ECG of 16-MAY-2023 07:27, HR has increased by 31 bpm Premature ventricular complexes are no longer Present Premature supraventricular complexes are now Present Confirmed by Tam Vidal ([id number]) on 05/18/2023 8:52:39 AM Referred By: REFERRED SELF Confirmed By:Tma Vidal
--- NOTE | 2023-05-18 08:57 | Electrocardiogram Report ---
Test Reason : Blood Pressure : / mmHG Vent. Rate : 074 BPM Atrial Rate : 074 BPM P-R Int : 150 ms QRS Dur : 086 ms QT Int : 400 ms P-R-T Axes : 042 -07 -05 degrees QTc Int : 444 ms Poor data quality, interpretation may be adversely affected Normal sinus rhythm Abnormal ECG When compared with ECG of 17-MAY-2023 12:28, Premature supraventricular complexes are no longer Present Vent. rate has decreased BY 53 BPM Left anterior fascicular block is no longer Present Confirmed by Tam Vidal ([id number]) on 05/18/2023 8:56:51 AM Referred By: REFERRED SELF Confirmed By:Tam Vidal
[2023-05-18] MEDS ORDERED: predniSONE 20 MG TAB PO SCH (09:00)
--- NOTE | 2023-05-18 09:33 | Ultrasound Report ---
US liver CLINICAL HISTORY: Elevated liver enzymes TECHNIQUE: Multiple real-time sonographic images of the right upper quadrant were obtained. Comparison: None available at the time of this dictation. FINDINGS: The liver is diffusely homogenous with normal contour and echogenicity. A hepatic cyst is seen measur ing 1.2 x 0.9 x 1.5 cm. No intrahepatic ductal dilatation is seen. Linear hyperechoic foci with pos terior shadowing are identified layering dependently within the gallbladder, which are consistent wit h gallstones. The gallbladder wall is not thickened. There is no pericholecystic fluid present. A so nographic Gillette's sign was not elicited by the customs agent. The common duct measures 0.6 cm in endy meter at the level of the hepatic artery. The visualized portions of the pancreas appear normal. The right kidney shows normal echogenicity, cortical thickness and renal contour. The right kidney sh ows no evidence of hydronephrosis. A cyst measures 2.7 cm. No ascites or free fluid is seen in Morley's pouch. IMPRESSION: Unremarkable right upper quadrant ultrasound. ACT 112: Negative or not required by law. Electronically signed by: Asher Davidson M.D. 05/18/2023 9:31 AM
[2023-05-18] MEDS: ASPIRIN 81 MG ECTAB PO SCH (09:38)
[2023-05-18] MEDS: methIMAzole 5 MG TABLET PO SCH (09:39)
[2023-05-18] MEDS: CHOLECALCIFEROL 1,000 UNITS 25 MCG TAB PO SCH (09:39)
[2023-05-18] MEDS: DOXYCYCLINE HYCLATE 100 MG CAP PO SCH (09:40)
[2023-05-18] MEDS ORDERED: OPTIRAY 320 125ml IV ONE (11:43)
--- NOTE | 2023-05-18 12:05 | CT Scan Report ---
CT ANGIOGRAPHY OF THE CHEST, PULMONARY EMBOLUS PROTOCOL CLINICAL HISTORY: Dyspnea. Evaluate for pulmonary embolus. COMPARISON STUDY: Chest CT April 09, 2023 and chest radiograph May 16, 2023. TECHNIQUE: Following IV administration of 120 mL of Optiray, helical axial images of the chest were o btained utilizing the pulmonary embolus protocol. Maximal intensity projections and sagittal and cor onal reformats were viewed on an independent 3D workstation. IV contrast was administered without co mplication. Automated exposure control was utilized for the study. A dose lowering technique was ut ilized adhering to the principles of ALARA. CT DOSE: 818.80 mGy.cm FINDINGS: No pulmonary emboli are identified although the lower lobe pulmonary arteries are suboptim ally assessed due to respiratory motion. There is moderate cardiomegaly. There is no thoracic aortic dissection. Prominent anterior mediastinal lymph nodes are noted. Right anterior mediastinal lymph no ulises have slightly increased in size since CT of April 09, 2023 while left anterior mediastinal lymph no ulises have decreased in size. These nodes are probably benign. There is no pneumothorax. Trace bilatera l pleural effusions are noted. There is also pleural thickening with an associated 3.4 cm subpleural left lower lobe opacity consistent with round atelectasis. This is unchanged from earlier exams. Emph ysema is again noted. Lungs are suboptimally assessed due to respiratory motion. A 4 cm subpleural ai rspace opacity within the right lower lobe on image 96 of 233 has increased since chest CT April 09. This measured 2.5 cm on that study. There are additional mild dependent airspace opacities within the lungs as well as mild airspace opacities within the remainder of the right lower lobe. Several l eft renal cysts are noted. There is a lateral segment hepatic cyst. IMPRESSION: 1. No pulmonary emboli identified although lower lobe pulmonary arteries suboptimally assessed due to respiratory motion. 2. Increase in 4 cm subpleural airspace opacity within the right lower lobe since chest CT April 09. This is nonspecific and could reflect progression of pneumonia. However, a neoplasm remains withi n the differential. A short-term follow-up chest CT in 2 months to ensure resolution is recommended. Scattered additional right lung airspace opacities which may be infectious or atelectatic. 3. Emphysema. 4. No change in left lower lobe round atelectasis which is benign. ACT 112: Negative or not required by law. Electronically signed by: Mihir Huynh M.D. 05/18/2023 12:04 PM
--- NOTE | 2023-05-18 13:56 | Hospitalist Progress Note ---
Date of Service May 18, 2023 Assessment & Plan (1) Acute hypoxemic respiratory failure: (2) Pneumonia: Plan: Patient presents to the ED with 3-day history of cough, generalized weakness and fever. On presentation to the ED, he was hypoxic with SPO2 of 84% in room air. He was afebrile and normotensive. On examination; has bilateral wheeze and decreased breath sound in right middle lung field. Leukocytosis present on admission; BNP elevated to 1785 Pro-Tito elevated Sputum culture showed Streptococcus pneumoniae Speech evaluation done; recommend regular diet. CT angio chest reviewed; no PE. Increasing 4 cm subpleural airway opacity within right lower lobe since March 2023. Received cefepime and doxycycline for past 2 days. Switch cefepime to ceftriaxone as sputum culture showed Streptococcus pneumonia. Plan to provide 7-day course. Patient to undergo VFSS today. Continue supplemental oxygen to keep saturation above 92%; wean off as tolerated DuoNebs, hypertonic saline for airway clearance. Started on steroids given bilateral wheeze on examination. Will provide 5-day course no known history of COPD; patient former smoker. Also started on budesonide and formoterol nebs. He will need inhaled corticosteroid and inhaled anticholinergic at discharge as CT findings were suggestive of infection. Will get embossograph operator recommendation regarding further work-up for subpleural opacity. (3) Right heart failure: (4) Elevated troponin: Plan: High sensitive troponin elevated to 51.2, next troponin was 50.3. Likely due to demand ischemia Patient denies chest pain. EKG personally reviewed; normal sinus rhythm with nonspecific ST or T wave changes and PVC Echocardiogram reviewed; EF of 55 to 60%, right ventricular moderately dilated with severe pulmonary hypertension. CT angio done to rule out PE BNP elevated will get cardiology and embossograph operator evaluation regarding evaluation of right heart failure. will give him 1 dose of Lasix 20 mg today pending cardiology evaluation. Might need to be on low-dose diuretic; we will follow-up on cardiology recs. (5) Elevated liver enzymes: Plan: Possible causes include drug induced cholestasis (? Antibiotic, methimazole), right heart failure Liver enzymes trending up;[id number] Right upper quadrant ultrasound unremarkable. Discussed with Dr. Belcher from endocrinology. It is unlikely that methimazole is causing elevated liver enzymes since patient is taking it since November. He recommends that methimazole can be kept on hold for 7 days; restart at 10 mg twice daily. Outpatient follow-up would be set up for the patient. 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 Free T4 within normal limits. TSH low. hypertensionnot on any medication. 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 Avoid nephrotoxic agents. BMP daily Time spent evaluating patient, direct bedside care, chart review, placing orders, interpretation of diagnostic studies, discussion with consultants, patient, and family members, as well as other required patient management activities is 60 minutes. Please note the above document was generated using voice recognition software. It may contain grammatical, syntax or spelling errors. Any formal questions or concerns about the content, text or information contained within the body of this dictation should be directly addressed to the provider for clarification Admission and Anticipated Discharge Date Admission Date: May 16, 2023 Subjective Patient seen and examined at bedside. He is comfortably sitting up on the bed. Reports that he is cough has improved and he is phlegm is more clear. Review of Systems Review of Systems: All systems reviewed & are unremarkable except as noted in Subjective Physical Exam Physical Exam: Constitutional: Alert orient x3; appears tired. Respiratory: Occasional wheeze heard. Decreased breath sound on right middle lobe. Cardiovascular: RRR, no murmur, no edema Vessels: no JVD or carotid bruit Chest: normal inspection of chest Abdomen: normal bowel sounds, soft, nontender, no hepatosplenomegaly Musculoskeletal: no cyanosis or clubbing, extremities motor strength 5/5 Skin: no rashes, warm and dry normal turgor Neurologic: PERRL, EOMI, accommodation nl, no face palsy, no dysarthria CN's II- XI intact bilaterally and moves all extremities Psychiatric: A+Ox3, euthymic affect Results & Data Results & Data Vital Signs (Past 12 Hours) Vital Signs Temp Pulse Pulse Resp BP Pulse Ox O2 Del Method 05/18/23 11:38 36.5 C 94 H 20 142/87 H 95 Nasal Cannula 05/18/23 08:00 Nasal Cannula 05/18/23 08:00 83 05/18/23 08:09 36.5 C 92 H 20 152/90 H 88 L Room Air 05/18/23 07:03 87 18 92 Nasal Cannula 05/18/23 03:00 37.1 C 80 19 128/71 91 Nasal Cannula O2 Flow Rate 05/18/23 11:38 3 05/18/23 08:00 2 05/18/23 08:00 05/18/23 08:09 05/18/23 07:03 2 05/18/23 03:00 2 Laboratory Results Laboratory Results WBC 12.38 K/ul (4.8-10.8) H 05/18/23 05:31 RBC 4.21 M/uL (4.70-6.10) L 05/18/23 05:31 Hgb 12.9 g/dl (14.0-18.0) L 05/18/23 05:31 Hct 37.0 % (42.0-52.0) L 05/18/23 05:31 MCV 87.9 fL (80.0-100.0) 05/18/23 05:31 MCH 30.6 pg (25.0-34.0) 05/18/23 05:31 MCHC 34.9 g/dL (32.0-36.0) 05/18/23 05:31 RDW Std Deviation 41.5 fL (36.4-46.3) 05/18/23 05:31 RDW Coeff of Chantal 13.0 % (11.5-14.5) 05/18/23 05:31 Plt Count 357 K/uL (130-400) 05/18/23 05:31 MPV 10.5 fL (9.4-12.4) 05/18/23 05:31 Immature Gran % (Auto) 1.4 % 05/18/23 05:31 Neut % (Auto) 83.7 % 05/18/23 05:31 Lymph % (Auto) 8.2 % 05/18/23 05:31 [place] % (Auto) 6.5 % 05/18/23 05:31 Eos % (Auto) 0.0 % 05/18/23 05:31 Baso % (Auto) 0.2 % 05/18/23 05:31 Neut # (Auto) 10.38 K/uL (1.40-6.50) H 05/18/23 05:31 Lymph # (Auto) 1.01 K/uL (1.2-3.4) L 05/18/23 05:31 [place] # (Auto) 0.80 K/uL (0.11-0.59) H 05/18/23 05:31 Eos # (Auto) 0.00 K/uL (0-0.50) 05/18/23 05:31 Baso # (Auto) 0.02 K/uL (0-0.2) 05/18/23 05:31 Immature Gran # (Auto) 0.17 K/uL (0.01-0.20) 05/18/23 05:31 PT 10.9 Seconds (9.0-12.0) 05/16/23 08:01 INR 1.0 (0.9-1.1) 05/16/23 08:01 APTT 28.5 Seconds (21.0-31.0) 05/16/23 08:01 PTT Ratio 1.0 05/16/23 08:01 VBG pH 7.36 (7.36-7.41) 05/16/23 08:25 VBG pCO2 45 mmHg (38-50) 05/16/23 08:25 VBG pO2 24 mmHg 05/16/23 08:25 VBG HCO3 25 mmol/L 05/16/23 08:25 VBG O2 Saturation < 60.0 % 05/16/23 08:25 VBG Base Excess -0.4 mEq/L 05/16/23 08:25 Sodium 134 mmol/L (136-145) L 05/18/23 05:31 Potassium 4.3 mmol/L (3.5-5.1) 05/18/23 05:31 Chloride 100 mmol/L (98-107) 05/18/23 05:31 Carbon Dioxide 23 mmol/L (21-32) 05/18/23 05:31 Anion Gap 11 (3-11) 05/18/23 05:31 BUN 40 mg/dl (6-23) H 05/18/23 05:31 Creatinine 1.25 mg/dl (0.6-1.4) 05/18/23 05:31 Est Cr Clr Drug Dosing 45.4 ml/min 05/18/23 05:31 Est GFR ( Amer) 60.9 ml/min 05/18/23 05:31 Est GFR (Non-Af Amer) 52.5 ml/min 05/18/23 05:31 BUN/Creatinine Ratio 32.0 (10-20) H 05/18/23 05:31 Glucose 141 mg/dl (70-99(Fasting)) H 05/18/23 05:31 POC Glucose 178 mg/dl (70-99) H 05/17/23 20:12 Lactate 1.2 mmol/L (0.4-2.0) 05/16/23 08:01 Calcium 8.8 mg/dl (8.6-10.3) 05/18/23 05:31 Magnesium 1.9 mg/dl (1.7-2.4) 05/16/23 08:01 Total Bilirubin 0.6 mg/dl (0.2-1.0) 05/18/23 05:31 Direct Bilirubin 0.3 mg/dl (0-0.2) H 05/16/23 08:01 AST 188 U/L (13-39) H 05/18/23 05:31 ALT 274 U/L (7-52) H 05/18/23 05:31 Alkaline Phosphatase 87 U/L (34-104) 05/18/23 05:31 Troponin I High Sens 50.3 pg/ml (0-20) H* 05/16/23 11:34 B-Natriuretic Peptide 1785 pg/ml (0-100) H 05/16/23 12:48 Total Protein 6.4 gm/dl (6.0-8.3) 05/18/23 05:31 Albumin 3.3 gm/dl (3.4-5.0) L 05/18/23 05:31 Globulin 3.1 gm/dl (2.5-4.0) 05/18/23 05:31 Albumin/Globulin Ratio 1.1 (0.9-2) 05/18/23 05:31 Triglycerides 68 mg/dl (0-150) 05/17/23 05:30 Cholesterol 135 mg/dl (0-200) 05/17/23 05:30 LDL Cholesterol, Calc 73 mg/dl 05/17/23 05:30 VLDL Cholesterol, Calc 14 mg/dl (0-30) 05/17/23 05:30 HDL Cholesterol 48 mg/dl 05/17/23 05:30 Cholesterol/HDL Ratio 2.8 (0-5) 05/17/23 05:30 Procalcitonin 1.57 ng/ml (0-0.5) H 05/16/23 08:01 TSH 0.031 uIu/ml (0.300-4.500) L 05/17/23 05:30 Free T4 0.89 ng/dl (0.61-1.60) 05/17/23 14:17 Urine Color Yellow 05/16/23 20:57 Urine Appearance Clear (Clear) 05/16/23 20:57 Urine pH 5.0 (4.5-7.5) 05/16/23 20:57 Ur Specific [place] 1.023 (1.000-1.030) 05/16/23 20:57 Urine Protein Trace (Negative) H 05/16/23 20:57 Urine Glucose (UA) 3+ (Negative) H 05/16/23 20:57 Urine Ketones Negative (Negative) 05/16/23 20:57 Urine Blood Negative (Negative) 05/16/23 20:57 Urine Nitrite Negative (Negative) 05/16/23 20:57 Urine Bilirubin Negative (Negative) 05/16/23 20:57 Urine Urobilinogen Negative (Negative) 05/16/23 20:57 Ur Leukocyte Esterase Negative (Negative) 05/16/23 20:57 Urine WBC (Auto) 1-5 /hpf (0-5) 05/16/23 20:57 Urine RBC (Auto) 5-10 /hpf (0-4) H 05/16/23 20:57 U Hyaline Cast (Auto) 1-5 /lpf (0-5) 05/16/23 20:57 U Epithel Cells (Auto) 5-10 /lpf (0-5) H 05/16/23 20:57 Urine Bacteria (Auto) Negative (Negative) 05/16/23 20:57 Nasal Screen MRSA (PCR) Negative (Negative) 05/16/23 08:17 SARS-CoV-2 (PCR) NEGATIVE (Negative) 05/16/23 09:26 Influenza Type A (PCR) Negative (Neg) 05/16/23 09:26 Influenza Type B (PCR) Negative (Neg) 05/16/23 09:26 RSV (RT-PCR) Negative (Neg) 05/16/23 09:26 Impressions Chest X-Ray 05/16/23 07:29 XR chest 1V portable CLINICAL HISTORY: Sepsis. COMPARISON STUDY: Chest radiograph October 19, [address] April 09, 2023. FINDINGS: There is no pneumothorax. Possible trace bilateral pleural effusions. Right lower lung opacity has increased since prior chest CT. Left infrahilar opacity favors round atelectasis when correlating with prior chest CT. Emphysema is present. Cardiomegaly is unchanged. There is mild interstitial thickening. IMPRESSION: 1. Increase in right lower lung opacity. This favors pneumonia. However, post treatment radiographs to ensure resolution and exclude the possibility of an underlying lesion are recommended. 2. Cardiomegaly pulmonary vascular congestion. Suspected trace bilateral pleural effusions. 3. Left lower lobe airspace opacity which favors round atelectasis when correlating with prior CT. ACT 112: Negative or not required by law. Electronically signed by: Mihir Huynh M.D. 05/16/2023 8:29 AM Liver Ultrasound 05/18/23 07:27 US liver CLINICAL HISTORY: Elevated liver enzymes TECHNIQUE: Multiple real-time sonographic images of the right upper quadrant were obtained. Comparison: None available at the time of this dictation. FINDINGS: The liver is diffusely homogenous with normal contour and echogenicity. A hepatic cyst is seen measuring 1.2 x 0.9 x 1.5 cm. No intrahepatic ductal dilatation is seen. Linear hyperechoic foci with posterior shadowing are identified layering dependently within the gallbladder, which are consistent with gallstones. The gallbladder wall is not thickened. There is no pericholecystic fluid present. A sonographic Gillette's sign was not elicited by the trip rider. The common duct measures 0.6 cm in diameter at the level of the hepatic artery. The visualized portions of the pancreas appear normal. The right kidney shows normal echogenicity, cortical thickness and renal contou r. The right kidney shows no evidence of hydronephrosis. A cyst measures 2.7 cm. No ascites or free fluid is seen in Morley's pouch. IMPRESSION: Unremarkable right upper quadrant ultrasound. ACT 112: Negative or not required by law. Electronically signed by: Asher Davidson M.D. 05/18/2023 9:31 AM Chest CTA 05/18/23 10:50 CT ANGIOGRAPHY OF THE CHEST, PULMONARY EMBOLUS PROTOCOL CLINICAL HISTORY: Dyspnea. Evaluate for pulmonary embolus. COMPARISON STUDY: Chest CT April 09, 2023 and chest radiograph May 16, 2023. TECHNIQUE: Following IV administration of 120 mL of Optiray, helical axial images of the chest were obtained utilizing the pulmonary embolus protocol. Maximal intensity projections and sagittal and coronal reformats were viewed on an independent 3D workstation. IV contrast was administered without complication. Automated exposure control was utilized for the study. A dose lowering technique was utilized adhering to the principles of ALARA. CT DOSE: 818.80 mGy.cm FINDINGS: No pulmonary emboli are identified although the lower lobe pulmonary arteries are suboptimally assessed due to respiratory motion. There is moderate cardiomegaly. There is no thoracic aortic dissection. Prominent anterior mediastinal lymph nodes are noted. Right anterior mediastinal lymph nodes have slightly increased in size since CT of April 09, 2023 while left anterior mediastinal lymph nodes have decreased in size. These nodes are probably benign. There is no pneumothorax. Trace bilateral pleural effusions are noted. There is also pleural thickening with an associated 3.4 cm subpleural left lower lobe opacity consistent with round atelectasis. This is unchanged from earlier exams. Emphysema is again noted. Lungs are suboptimally assessed due to respiratory motion. A 4 cm subpleural airspace opacity within the right lower lobe on image 96 of 233 has increased since chest CT April 09, 2023. This measured 2.5 cm on that study. There are additional mild dependent airspace opacities within the lungs as well as mild airspace opacities within the remainder of the right lower lobe. Several left renal cysts are noted. There is a lateral segment hepatic cyst. IMPRESSION: 1. No pulmonary emboli identified although lower lobe pulmonary arteries suboptimally assessed due to respiratory motion. 2. Increase in 4 cm subpleural airspace opacity within the right lower lobe since chest CT April 09, 2023. This is nonspecific and could reflect progression of pneumonia. However, a neoplasm remains within the differential. A short-term follow-up chest CT in 2 months to ensure resolution is recommended. Scattered additional right lung airspace opacities which may be infectious or atelectatic. 3. Emphysema. 4. No change in left lower lobe round atelectasis which is benign. ACT 112: Negative or not required by law. Electronically signed by: Mihir Huynh M.D. 05/18/2023 12:04 PM
[2023-05-18] MEDS ORDERED: cefTRIAXone SODIUM 2,000 MG in DEXTROSE 5% 50 ML IV SCH (14:00)
[2023-05-18] MEDS ORDERED: FUROSEMIDE INJ 20 MG/2 ML VIAL IV ONE (14:01)
--- NOTE | 2023-05-18 14:01 | Fluoroscopy Report ---
FL video swallow CLINICAL HISTORY: r/o aspiration TECHNIQUE: Video fluoroscopy of the pharyngeal region was performed as barium mixtures of varying con sistencies were administered to the patient by the speech pathologist. A formal esophagram was not pe rformed. Comparison: None available at the time of this dictation. FINDINGS: Total fluoroscopy time: 1.47 minutes. Radiation dose: 9.82 mGy. The patient swallowed the different barium consistencies without difficulty. Trace silent aspiration is seen within liquids. Penetration is seen with multiple consistencies. Pooling of barium was noted in the bilateral piriform sinuses and valleculae. IMPRESSION: Trace aspiration and penetration noted. Please see the speech pathology report for further details. ACT 112: Negative or not required by law. Electronically signed by: Asher Davidson M.D. 05/18/2023 1:59 PM
--- NOTE | 2023-05-18 15:33 | Pulmonary Consultation ---
Date of Consultation May 18, 2023 Assessment & Plan (1) Acute hypoxemic respiratory failure: (2) Pneumonia: (3) Abnormal chest CT: (4) Pulmonary hypertension: Plan Impression: 82-year-old male with echocardiogram showing some RV dilatation with elevated PA pressures. Suspect this is multifactorial due to combinations of diastolic dysfunction, potential underlying obstructive lung disease, potential undiagnosed sleep disordered breathing, potential chronic hypoxemic respiratory failure, and elevated left ventricular filling pressures. He is currently being treated for pneumococcal pneumonia. He has a slight increased density in the posterior segment of the right lower lobe but does aspirate and is being treated for pneumonia. Recommendations: 1. Abnormal CT scan: I suspect the findings noted in the lower lobe rectal resent changes consistent with the patient's recurrent aspiration or pneumonia. Regardless, given his age and medical comorbidities I do not think he is a candidate for invasive procedures. Would recommend a follow-up CT scan in 2 to 3 months. 2. Pulmonary hypertension: Suspect the patient has multifactorial pulmonary hypertension due to combinations of group 2 and potentially group 3. Definitive diagnosis would require right heart catheterization to be performed at a center of excellence. Again given the patient's comorbidities and lack of clinical symptoms, would recommend conservative management at this point time. Outpatient PFTs might be appropriate. Assessing for need for supplemental oxygen. Diuresis and blood pressure optimization with target blood pressure less than 130/75. Would not recommend pulmonary vasodilators. 3. Pneumococcal pneumonia: Patient is currently on Rocephin and doxycycline. Antibiotics can be tapered. He is already on prednisone for presumed COPD exacerbation. Amoxicillin should be adequate therapy for pneumococcus. Antibiotics per primary service. Discontinue budesonide. Transition to ANORO if the patient can perform metered-dose inhalers. Outpatient PFTs if the patient can tolerate. 4. Hypoxemia: Wean oxygen as tolerated. The patient will require assessment for supplemental oxygen prior to discharge. Thanks for the opportunity to care for this patient. Feel free to contact us with questions or concerns History of Present Illness Attending Physician: Matty Conrad MD History of Present Illness Asked by hospitalist to evaluate this patient with incidental finding of pulmonary hypertension and an abnormal CT scan. History is obtained from d iscussion with the patient as well as review the electronic medical record. Patient is an 82-year-old male who lives independently with his in a double wide trailer. He has extensive history of tobacco exposure (greater than 50 pack years) quit smoking about 20 years ago. Is been following cardiology for intermittent heart failure and nonocclusive coronary disease. He was admitted to the facility 05/16/2023 with complaints of cough weakness and fever. Sputum culture has grown pneumococcus and the patient is on antibiotics. He is feeling better. As part of his work-up he had an echocardiogram performed which revealed pulmonary hypertension and pulmonary was consulted. Patient reports that he ambulates okay at home. He apparently still enjoys hunting and fishing. He walks with the assistance of a cane. He has not noted any profound lower extremity edema. No syncope or presyncope. 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 He denies current fevers chills or night sweats. His cough is much less productive and he feels like he is improving Allergies Allergy/AdvReac Type Severity Reaction Status Date / Time No Known Allergies Allergy Verified 05/16/23 08:44 Home Medications Medication Instructions Recorded Confirmed Type acetaminophen 325 mg tablet 325 mg PO Q6H PRN fever or pain 08/23/19 05/16/23 History (Tylenol) cholecalciferol (vitamin D3) 25 2,000 units PO QAM 08/23/19 05/16/23 History mcg (1,000 unit) tablet aspirin 81 mg tablet,delayed 81 mg PO QAM 12/17/19 05/16/23 History release methimazole 10 mg tablet 10 mg PO DAILY #30 tabs 04/16/23 05/16/23 Rx gabapentin 600 mg tablet 600 mg PO HS 05/16/23 05/16/23 History Patient History Medical History (Updated 05/18/23 @ 15:25 by Maximus Garrido MD) Community acquired pneumonia Former smoker Lymphoma 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 Polyp of colon RSV infection Surgical History H/O varicose vein ligation Family History Father , Age 91 Renal failure Mother Breast cancer Denies family history of Ovarian cancer Prostate cancer Myocardial infarction Colorectal cancer Social History (Updated 02/25/23 @ 08:07 by LIZ Joyce Smoking Status: Former smoker Tobacco Type: Cigarettes Age Quit Using Tobacco: 61; Second Hand Exposure: No; Do You Dip or Chew Tobacco: No; Hx Alcohol Use: Yes Alcohol type: beer Hx Substance Use: No Preferred Language: Greek Communication Ability: Effective Visual Impairment: No Limitations Hearing Ability: Hard of Hearing 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 Beliefs That Will Affect Care: None marital status: Current Living Situation: Spouse current occupational status: retired How many Children do You have: 1 Feels Safe at Home: Yes Safety Concerns: Feels Safe At This Time Childhood Exposure to Second-Hand Smoke: No Diet: regular caffeine: Yes Dental Care, Regularly: No Physical Activity Frequency: Does not Exercise Seatbelt Use: always Sunscreen Use: No Assistive Devices: Cane Review of Systems Review of Systems: All systems reviewed & are unremarkable except as noted in Subjective Physical Exam Constitutional: WD/WN, vitals as above Neck: trachea midline, no thyromegaly Respiratory: normal respiratory effort, lungs clear to auscultation Cardiovascular: Rate/Rhythm: regular rate Heart Sounds: normal S1 and norm al S2; no murmur Gastrointestinal (Abdomen): normal bowel sounds, soft, nontender, no hepatosplenomegaly Musculoskeletal: Extremities: extremities normal to inspection Skin: no rashes, warm and dry Neurologic: Nonfocal exam Lymphatic: no cervical lymphadenopathy Results & Data Results & Data Vital Signs (Past 12 Hours) Vital Signs Temp Pulse Pulse Resp BP Pulse Ox O2 Del Method 05/18/23 11:38 36.5 C 94 H 20 142/87 H 95 Nasal Cannula 05/18/23 08:00 Nasal Cannula 05/18/23 08:00 83 05/18/23 08:09 36.5 C 92 H 20 152/90 H 88 L Room Air 05/18/23 07:03 87 18 92 Nasal Cannula O2 Flow Rate 05/18/23 11:38 3 05/18/23 08:00 2 05/18/23 08:00 05/18/23 08:09 05/18/23 07:03 2 Diagnostic Findings Echocardiogram from 05/16/2023 showed normal left ventricular size with concentric LVH. Septum was flattened consistent with RV pressure overload with moderate dilatation of the right ventricle with some RV dysfunction. No valvular disease. PA pressures estimated around 80 with a right atrial pressure estimated around 15. Diastolic dysfunction was noted Critical Care Results & Data Vital Signs (Past 12 Hours) Vital Signs Temp Pulse Pulse Resp BP Pulse Ox O2 Del Method 05/18/23 11:38 36.5 C 94 H 20 142/87 H 95 Nasal Cannula 05/18/23 08:00 Nasal Cannula 05/18/23 08:00 83 05/18/23 08:09 36.5 C 92 H 20 152/90 H 88 L Room Air 05/18/23 07:03 87 18 92 Nasal Cannula O2 Flow Rate 05/18/23 11:38 3 05/18/23 08:00 2 05/18/23 08:00 05/18/23 08:09 05/18/23 07:03 2 Lab & Micro Results (Past 24 Hours) RBC 4.21 M/uL (4.70-6.10) L 05/18/23 WBC 12.38 K/ul (4.8-10.8) H 05/18/23 Hgb 12.9 g/dl (14.0-18.0) L 05/18/23 Hct 37.0 % (42.0-52.0) L 05/18/23 MCV 87.9 fL (80.0-100.0) 05/18/23 MCH 30.6 pg (25.0-34.0) 05/18/23 MCHC 34.9 g/dL (32.0-36.0) 05/18/23 RDW Standard Deviation 41.5 fL (36.4-46.3) 05/18/23 RDW Coefficient of Variation 13.0 % (11.5-14.5) 05/18/23 Plt Count 357 K/uL (130-400) 05/18/23 MPV 10.5 fL (9.4-12.4) 05/18/23 Neutrophils (%) (Auto) 83.7 % 05/18/23 Lymphocytes (%) (Auto) 8.2 % 05/18/23 Monocytes # (Auto) 0.80 K/uL (0.11-0.59) H 05/18/23 Eosinophils # (Auto) 0.00 K/uL (0-0.50) 05/18/23 Immature Granulocyte % (Auto) 1.4 % 05/18/23 Neutrophils # (Auto) 10.38 K/uL (1.40-6.50) H 05/18/23 Lymphocytes # (Auto) 1.01 K/uL (1.2-3.4) L 05/18/23 Monocytes # (Auto) 0.80 K/uL (0.11-0.59) H 05/18/23 Eosinophils # (Auto) 0.00 K/uL (0-0.50) 05/18/23 Basophils # (Auto) 0.02 K/uL (0-0.2) 05/18/23 Immature Granulocyte # (Auto) 0.17 K/uL (0.01-0.20) 3 Na 134 mmol/L (136-145) L 05/18/23 K 4.3 mmol/L (3.5-5.1) 05/18/23 Cl 100 mmol/L (98-107) 05/18/23 CO2 23 mmol/L (21-32) 05/18/23 Anion Gap 11 (3-11) 05/18/23 BUN 40 mg/dl (6-23) H 05/18/23 Creatinine 1.25 mg/dl (0.6-1.4) 05/18/23 Estimated GFR ( Amer) 60.9 ml/min 05/18/23 Estimated GFR (Non-Af Amer) 52.5 ml/min 05/18/23 BUN/Creatinine Ratio 32.0 (10-20) H 05/18/23 Glu 141 mg/dl (70-99(Fasting)) H 05/18/23 Ca 8.8 mg/dl (8.6-10.3) 05/18/23 Total Bilirubin 0.6 mg/dl (0.2-1.0) 05/18/23 AST 188 U/L (13-39) H 05/18/23 ALT 274 U/L (7-52) H 05/18/23 Alkaline Phosphatase 87 U/L (34-104) 05/18/23 TP 6.4 gm/dl (6.0-8.3) 05/18/23 Albumin 3.3 gm/dl (3.4-5.0) L 05/18/23 Globulin 3.1 gm/dl (2.5-4.0) 05/18/23 Albumin/Globulin Ratio 1.1 (0.9-2) 05/18/23 Calcium Level 8.8 mg/dl (8.6-10.3) 05/18/23 05:31 Microbiology 05/16/23 08:01 Aerobic Blood Culture - Preliminary Blood No growth in Aerobic bottle after 48 hours. Anaerobic Blood Culture - Preliminary No growth in Anaerobic bottle after 48 hours. 05/16/23 08:19 Aerobic Blood Culture - Preliminary Blood No growth in Aerobic bottle after 48 hours. Anaerobic Blood Culture - Preliminary No growth in Anaerobic bottle after 48 hours. 05/16/23 Unknown Gram Stain - Final Sputum, Expectorated Sputum Culture - Preliminary Streptococcus pneumoniae Diagnostic Findings (Past 24 Hours) Liver Ultrasound 05/18/23 07:27 US liver CLINICAL HISTORY: Elevated liver enzymes TECHNIQUE: Multiple real-time sonographic images of the right upper quadrant were obtained. Comparison: None available at the time of this dictation. FINDINGS: The liver is diffusely homogenous with normal contour and echogenicity. A hepatic cyst is seen measuring 1.2 x 0.9 x 1.5 cm. No intrahepatic ductal dilatation is seen. Linear hyperechoic foci with posterior shadowing are identified layering dependently within the gallbladder, which are consistent with gallstones. The gallbladder wall is not thickened. There is no pericholecystic fluid present. A sonographic Gillette's sign was not elicited by the tool analyst. The common duct measures 0.6 cm in diameter at the level of the hepatic artery. The visualized portions of the pancreas appear normal. The right kidney shows normal echogenicity, cortical thickness and renal contour. The right kidney shows no evidence of hydronephrosis. A cyst measures 2.7 cm. No ascites or free fluid is seen in Morley's pouch. IMPRESSION: Unremarkable right upper quadrant ultrasound. ACT 112: Negative or not required by law. Electronically signed by: Asher Davidson M.D. 05/18/2023 9:31 AM Chest CTA 05/18/23 10:50 CT ANGIOGRAPHY OF THE CHEST, PULMONARY EMBOLUS PROTOCOL CLINICAL HISTORY: Dyspnea. Evaluate for pulmonary embolus. COMPARISON STUDY: Chest CT April 09, 2023 and chest radiograph May 16, 2023. TECHNIQUE: Following IV administration of 120 mL of Optiray, helical axial images of the chest were obtained utilizing the pulmonary embolus protocol. Maximal intensity projections and sagittal and coronal reformats were viewed on an independent 3D workstation. IV contrast was administered without complication. Automated exposure control was utilized for the study. A dose lowering technique was utilized adhering to the principles of ALARA. CT DOSE: 818.80 mGy.cm FINDINGS: No pulmonary emboli are identified although the lower lobe pulmonary arteries are suboptimally assessed due to respiratory motion. There is moderate cardiomegaly. There is no thoracic aortic dissection. Prominent anterior mediastinal lymph nodes are noted. Right anterior mediastinal lymph nodes have slightly increased in size since CT of April 09, 2023 while left anterior mediastinal lymph nodes have decreased in size. These nodes are probably benign. There is no pneumothorax. Trace bilateral pleural effusions are noted. There is also pleural thickening with an associated 3.4 cm subpleural left lower lobe opacity consistent with round atelectasis. This is unchanged from earlier exams. Emphysema is again noted. Lungs are suboptimally assessed due to respiratory motion. A 4 cm subpleural airspace opacity within the right lower lobe on image 96 of 233 has increased since chest CT April 09, 2023. This measured 2.5 cm on that study. There are additional mild dependent airspace opacities within the lungs as well as mild airspace opacities within the remainder of the right lower lobe. Several left renal cysts are noted. There is a lateral segment hepatic cyst. IMPRESSION: 1. No pulmonary emboli identified although lower lobe pulmonary arteries suboptimally assessed due to respiratory motion. 2. Increase in 4 cm subpleural airspace opacity within the right lower lobe since chest CT April 09, 2023. This is nonspecific and could reflect progression of pneumonia. However, a neoplasm remains within the differential. A short-term follow-up chest CT in 2 months to ensure resolution is recommended. Scattered additional right lung airspace opacities which may be infectious or atelectatic. 3. Emphysema. 4. No change in left lower lobe round atelectasis which is benign. ACT 112: Negative or not required by law. Electronically signed by: Mihir Huynh M.D. 05/18/2023 12:04 PM Videofluoroscopic Swallow 05/18/23 13:00 FL video swallow CLINICAL HISTORY: r/o aspiration TECHNIQUE: Video fluoroscopy of the pharyngeal region was performed as barium mixtures of varying consistencies were administered to the patient by the speech pathologist. A formal esophagram was not performed. Comparison: None available at the time of this dictation. FINDINGS: Total fluoroscopy time: 1.47 minutes. Radiation dose: 9.82 mGy. The patient swallowed the different barium consistencies without difficulty. Trace silent aspiration is seen within liquids. Penetration is seen with multiple consistencies. Pooling of barium was noted in the bilateral piriform sinuses and valleculae. IMPRESSION: Trace aspiration and penetration noted. Please see the speech pathology report for further details. ACT 112: Negative or not required by law. Electronically signed by: Asher Davidson M.D. 05/18/2023 1:59 PM I & O Totals 24 Hours 05/17/23 05/18/23 05/19/23 06:59 06:59 06:59 Intake Total 1470 / 1470 600 / 600 170 / 170 Output Total 1150 / 1150 1300 / 1300 Balance 320 / 320 -700 / -700 170 / 170 Cumulative 05/16/23 07:15 thru 05/18/23 14:49 Intake Total 2240 Output Total 2450 Balance -210 RT Ventilator Mngmt (Last Documented) Ventilator Ordered Settings Respiratory Rate 20 05/18/23 11:38 Ventilator - PT Measurements Respiratory Rate 20 PG Care Time/CCT Total # of Minutes Spent Total Time Spent with Patient: Total time spent is greater than 50% in coordination of care (as documented) at patient's floor/unit and/or counseling patient: Coding Level of Care Code 39412 INT INP/OBS CARE 375MIN Diagnoses Acute hypoxemic respiratory failure J96.01 Pneumonia J18.[address] R93.89 Pulmonary hypertension I27.20
--- NOTE | 2023-05-18 16:05 | Cardiology Consultation ---
Date of Consultation May 18, 2023 Assessment & Plan (1) Cor pulmonale: (2) Acute respiratory failure with hypoxia: (3) Emphysema/COPD: (4) Right middle lobe pneumonia: Plan 82-year-old man with longstanding smoking history and "severe emphysema" noted on both January [address] scans, had prior significant pneumonia October 2022, being treated currently for pneumonia who was found incidentally on echocardiogram to have dilated right heart with reduced systolic function and severe pulmonary hypertension. In the context of significant underlying lung disease, these echocardiographic findings are most consistent with cor pulmonale. Although would suspect some degree of at least mild chronic right heart failure, currently he appears reasonably euvolemic (mildly elevated neck veins expected with cor pulmonale) and has minimal leg edema. His weight is at its historical low range in recent years. Would be reluctant to aggressively diuresis in the absence of more clear-cut evidence of acute volume overload (pulmonary edema on CT scan, weight increasing, further neck vein elevation, etc.). He is on a probably homeopathic dose of furosemide 20 mg p.o. daily, would be preferable to use higher dose to ensure efficacy but administer on a PRN weight-based regimen (for example, giving furosemide 40 mg if he gains more than 2 pounds overnight or 5 pounds in a week). At this point, it is not clear that he should be on a daily diuretic. However, given his high-dose prednisone use, if he does have abrupt weight gain would be prepared to initiate routine diuretic. Etiology of rising liver enzymes is uncertain, possibly medication or infection related, doubt right heart failure given absence of more substantial right-sided edema (as would be expected prior to developing liver dysfunction) as well as his normal INR (would expect elevation if he has hepatic congestion). He did have mildly reduced left ventricular systolic function at the time of his pneumonia October 2022, however LV function has returned to normal. Epidemiologically, he likely has underlying coronary artery disease, but his troponin was only minimally elevated and the curve flat and he has complained of no chest pain. Reasonable to consider new aspirin long-term and have sublingual nitroglycerin available. He also has a history of transient ventricular tachycardia in the context of hypoxia, telemetry recently has shown PVCs but no ventricular dysrhythmias. Given his comorbidities, conservative management of any coronary artery disease is appropriate. 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 Polo once as an outpatient and was seen by Dr. Muniz during his October 2022 hospitalization, he could follow-up with either of these cardiologists upon discharge or I could see him in the [facility] office for cardiology follow-up. History of Present Illness Reason for Consultation: Right sided heart failure Requesting Physician: Matty Conrad MD Attending Physician: Matty Conrad MD History of Present Illness 82-year-old man with longstanding smoking history (greater than [id number]), presumed coronary artery disease (moderate troponin elevation in the context of prior pneumonia), resolved cardiomyopathy (mildly reduced systolic function in the context of prior pneumonia/hypoxia, current ejection fraction normal), who was admitted 05/16/2023 with increasing dyspnea and found to be hypoxic with apparent streptococcal pneumonia, echocardiogram notable for evidence of right heart failure and severe pulmonary hypertension, prompting cardiology consultation. Patient has limited insight and was a poor historian. Admission H&P notes that he had a 3-day history of cough, generalized weakness, and fever. Upon inquiry, he notes that at baseline (prior to his recent symptoms) he can slowly walk to h is mailbox (which is 75 yards away) without stopping. He sleeps at about a 30 degree incline and can sleep through the night with no PND. He denies any chest pain, subjective palpitations, presyncope, or syncope. He does note chronic mild leg edema for the past several years. He denies any worsening dyspnea on exertion in recent years. He denies any recent significant weight change. Of note, he was previously admitted October 2022 with respiratory failure/pneumonia. Current echocardiogram shows EF 55 to 60% with a flattened septum consistent with RV pressure overload, moderately dilated RV with reduced function, severe pulmonary hypertension with estimated pulmonary artery systolic pressure 80 to 85 mmHg. No significant valvular disease. Chest CT during this admission shows severe emphysema, mild mediastinal lymphadenopathy, opacity right lower lobe, dilated pulmonary arteries, trace bilateral pleural effusions with left lower lobe atelectasis. At the time of my evaluation, he had no somatic complaints at rest on oxygen. Allergies Allergy/AdvReac Type Severity Reaction Status Date / Time No Known Allergies Allergy Verified 05/16/23 08:44 Home Medications Medication Instructions Recorded Confirmed Type acetaminophen 325 mg tablet 325 mg PO Q6H PRN fever or pain 08/23/19 05/16/23 History (Tylenol) cholecalciferol (vitamin D3) 25 2,000 units PO QAM 08/23/19 05/16/23 History mcg (1,000 unit) tablet aspirin 81 mg tablet,delayed 81 mg PO QAM 12/17/19 05/16/23 History release methimazole 10 mg tablet 10 mg PO DAILY #30 tabs 04/16/23 05/16/23 Rx gabapentin 600 mg tablet 600 mg PO HS 05/16/23 05/16/23 History Patient History Medical History Community acquired pneumonia Former smoker Lymphoma 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 Polyp of colon RSV infection Surgical History H/O varicose vein ligation Family History Father , Age 91 Renal failure Mother Breast cancer Denies family history of Ovarian cancer Prostate cancer Myocardial infarction Colorectal cancer Social History (Updated 02/25/23 @ 08:07 by Sudha Mchugh LPN) Smoking Status: Former smoker Tobacco Type: Cigarettes Age Quit Using Tobacco: 61; Second Hand Exposure: No; Do You Dip or Chew Tobacco: No; Hx Alcohol Use: Yes Alcohol type: beer Hx Substance Use: No Preferred Language: Korean Communication Ability: Effective Visual Impairment: No Limitations Hearing Ability: Hard of Hearing Health Workers Required: No Beliefs That Will Affect Care: None marital status: Current Living Situation: Spouse current occupational status: retired How many Children do You have: 1 Feels Safe at Home: Yes Safety Concerns: Feels Safe At This Time Childhood Exposure to Second-Hand Smoke: No Diet: regular caffeine: Yes Dental Care, Regularly: No Physical Activity Frequency: Does not Exercise Seatbelt Use: always Sunscreen Use: No Assistive Devices: Cane Physical Exam Physical Exam: Elderly white male in no distress. His weight is at the low end of its historical range (currently 186 pounds, range last year was 186-204 pounds). BP mildly hypertensive. Pulse 74 bpm and regular. Skin: no ecchymoses or generalized lesions. Pigmentary changes both pretibial regions. HEENT: unremarkable. Neck: JVP does appear elevated with increased respiratory variation, meniscus roughly [address] the angle of the jaw. Lungs: Somewhat tubular breath sounds with "dry" crackles alf up both lung drummond, no obvious wheezing. No accessory muscle use. Cardiac: regular rhythm, mildly decreased aortic and markedly increased pulmonic closure sounds, no obvious murmur. Abdomen: benign. Extremities: Trace to 1+ pretibial edema with stasis changes, pulses intact. Neurologic: Digressive speech pattern, limited insight, grossly nonfocal. Results & Data Laboratory Results Troponin 51.2 and 50.3. BNP 1785. WBC 12.38, hemoglobin 12.9, normal platelet count. Sodium 134, potassium 4.3, chloride 100, CO2 23, BUN 40, creatinine 1.25. AST 188, ALT 274 (both rising). Albumin 3.3. TSH 0.031 with free T40.89. Diagnostic Findings Chest x-ray showed cardiomegaly with suspected trace bilateral pleural effusions in the left lower lobe opacity consistent with atelectasis, right lower lung capacity consistent with pneumonia mild interstitial thickening and emphysema. ECG on admission showed sinus tachycardia at 127 bpm with PACs, left atrial enlargement, left anterior fascicular block, and poor R wave progression. ECG today showed sinus rhythm at 74 bpm with anteroseptal T wave inversions. Echocardiogram and chest CT as noted in HPI. PG Care Time/CCT Total # of Minutes Spent Total Time Spent with Patient: Total time spent is greater than 50% in coordination of care (as documented) at patient's floor/unit and/or counseling patient: Coding Level of Care Code 66553 IN/OBS CONSULT LVL 4,60M Diagnoses Cor pulmonale I27.81 Acute respiratory failure with hypoxia J96.01 Emphysema/COPD J43.9 Right middle lobe pneumonia J18.9 Pneumonia type: due to unspecified organism (4) Right middle lobe pneumonia Pneumonia type: due to unspecified organism Qualified Code(s): J18.9 - Pneumonia, unspecified organism
[2023-05-18] MEDS: UMECLIDINIUM/VILANTEROL 62.5/25MCG 7 PUFFS/INHALER INH SCH (18:01)
[2023-05-18] MEDS: GABAPENTIN 600 MG TAB PO SCH (19:40)
[2023-05-18] MEDS: AMOXICILLIN 500 MG CAP PO SCH (19:41)
[2023-05-19] MEDS: HEPARIN SOD 5,000 UNIT/0.5 ML VIAL SQ SCH ×3 (05:59→21:33)
[2023-05-19 06:39] LABS: Basophils # (auto) 0.01 K/uL (0-0.2); Basophils % (auto) 0.1 %; Hemoglobin 11.4 g/dl (14.0-18.0); Immature Granulocytes % (auto) 1.4 %; Lymphocytes # (auto) 1.05 K/uL (1.2-3.4); Lymphocytes % (auto) 14.4 %; Mean Corpuscular Hemoglobin 30.6 pg (25.0-34.0); Mean Corpuscular Hgb Conc 34.5 g/dL (32.0-36.0); Mean Corpuscular Volume 88.7 fL (80.0-100.0); Mean Platelet Volume 10.5 fL (9.4-12.4); Monocytes # (auto) 0.88 K/uL (0.11-0.59); Monocytes % (auto) 12.1 %; Neutrophils # (auto) 5.26 K/uL (1.40-6.50); Platelet Count 314 K/uL (130-400); RDW Standard Deviation 42.1 fL (36.4-46.3); Red Blood Count 3.72 M/uL (4.70-6.10)
[2023-05-19 07:02] LABS: Albumin Globulin Ratio 1.2 (0.9-2); Albumin Level 2.7 gm/dl (3.4-5.0); BUN Creatinine Ratio 29.9 (10-20); Bilirubin,Total 0.5 mg/dl (0.2-1.0); Calcium 8.2 mg/dl (8.6-10.3); Creatinine Clr Calc Pharmacy 41.4 ml/min; Est GFR (African American) 54.5 ml/min; Globulin 2.3 gm/dl (2.5-4.0)
[2023-05-19] MEDS: SODIUM CHLOR 7% 4 ML NEB NEB SCH ×2 (07:16→19:18)
[2023-05-19] MEDS: ALBUT/IPRATROP 3MG/0.5MG NEB 3 ML VIAL NEB SCH ×2 (07:16→19:18)
[2023-05-19] MEDS: AMOXICILLIN 500 MG CAP PO SCH ×3 (08:14→21:31)
[2023-05-19] MEDS: UMECLIDINIUM/VILANTEROL 62.5/25MCG 7 PUFFS/INHALER INH SCH (08:15)
[2023-05-19] MEDS: FUROSEMIDE 20 MG TAB PO SCH (08:16)
[2023-05-19] MEDS: CHOLECALCIFEROL 1,000 UNITS 25 MCG TAB PO SCH (08:16)
[2023-05-19] MEDS: predniSONE 20 MG TAB PO SCH (08:16)
[2023-05-19] MEDS: ASPIRIN 81 MG ECTAB PO SCH (08:17)
--- NOTE | 2023-05-19 13:02 | Pulmonology Progress Note ---
Date of Service May 19, 2023 Assessment & Plan (1) Acute hypoxemic respiratory failure: (2) Pneumonia: (3) Abnormal chest CT: (4) Pulmonary hypertension: Plan Impression: 82-year-old male with echocardiogram showing some RV dilatation with elevated PA pressures. Suspect this is multifactorial due to combinations of diastolic dysfunction, potential underlying obstructive lung disease, potential undiagnosed sleep disordered breathing, potential chronic hypoxemic respiratory failure, and elevated left ventricular filling pressures. He is currently being treated for pneumococcal pneumonia. He has a slight increased density in the posterior segment of the right lower lobe but does aspirate and is being treated for pneumonia. Recommendations: 1. Abnormal CT scan: I suspect the findings noted in the lower lobe resent changes consistent with the patient's recurrent aspiration or pneumonia. Regardless, given his age and medical comorbidities I do not think he is a ca ndidate for invasive procedures. Would recommend a follow-up CT scan in 2 to 3 months at most. 2. Pulmonary hypertension: Suspect the patient has multifactorial pulmonary hypertension due to combinations of group 2 and potentially group 3. Agree with cardiology. Would pursue symptom based therapy at this point time.. 3. Pneumococcal pneumonia: Complete antibiotics for streptococcal pneumonia. Follow-up imaging as noted above. 4. Hypoxemia: Wean oxygen as tolerated. The patient will require assessment for supplemental oxygen prior to discharge. Patient appears significantly improved currently. Can likely be dismissed from the hospital next 24 hours. We would be happy to see the patient back in clinic with a follow-up CT scan in 8 to 12 weeks. Pulmonary will sign off at this point time. Feel free to contact us with additional questions or concerns. Admission and Anticipated Discharge Date Admission Date: May 16, 2023 Subjective Patient seen and examined. EMR reviewed. The patient is sitting in a chair at bedside. He states he feels markedly better. He is coughed up some phlegm and states that he feels ready to resume his normal daily calisthenics. He is not having any fevers or chills. He denies any hemoptysis. He is tolerating a diet. Review of Systems Review of Systems: All systems reviewed & are unremarkable except as noted in Subjective Physical Exam Constitutional: WD/WN, vitals as above Neck: trachea midline, no thyromegaly Respiratory: normal respiratory effort, lungs clear to auscultation Cardiovascular: Rate/Rhythm: regular rate Heart Sounds: normal S1 and normal S2; no murmur Gastrointestinal (Abdomen): normal bowel sounds, soft, nontender, no hepatosplenomegaly Musculoskeletal: Extremities: extremities normal to inspection Skin: no rashes, warm and dry Lymphatic: no cervical lymphadenopathy Results & Data Results & Data Vital Signs (Past 12 Hours) Vital Signs Temp Pulse Pulse Resp BP Pulse Ox O2 Del Method 05/19/23 11:53 36.5 C 82 20 142/87 H 93 Nasal Cannula 05/19/23 08:00 Nasal Cannula 05/19/23 07:38 36.6 C 74 18 133/77 92 Nasal Cannula 05/19/23 07:18 74 18 92 Nasal Cannula 05/19/23 07:01 54 L 05/19/23 03:33 20 92 Nasal Cannula 05/19/23 03:00 36.7 C 71 22 138/80 85 L Nasal Cannula O2 Flow Rate 05/19/23 11:53 2 05/19/23 08:00 2 05/19/23 07:38 2 05/19/23 07:18 3 05/19/23 07:01 05/19/23 03:33 3 05/19/23 03:00 3 Laboratory Results 05/19/23 05:30 05/19/23 05:30 PG Care Time/CCT Total # of Minutes Spent Total Time Spent with Patient: Total time spent is greater than 50% in coordination of care (as documented) at patient's floor/unit and/or counseling patient: Coding Level of Care Code 18961 SUB INP/OBS CARE 2/35MIN Diagnoses Acute hypoxemic respiratory failure J96.01 Pneumonia J18.[address] R93.89 Pulmonary hypertension I27.20
--- NOTE | 2023-05-19 15:20 | Hospitalist Progress Note ---
Date of Service May 19, 2023 Assessment & Plan (1) Acute respiratory failure with hypoxia: Plan Acute hypoxemic respiratory failure: Pneumonia: Patient presents to the ED with 3-day history of cough, generalized weakness and fever; found to be hypoxic 84% on RA. Leucocytosis + & procal elevated. Sputum culture showedStreptococcus pneumoniae CT angio chest reviewed; no PE. Increasing 4 cm subpleural airway opacity within right lower lobe since March 2023. Speech evaluation done; recommend regular diet. Video swallow study and recommendation appreciated. Cefepime and doxycycline initially, then, currently on amoxicillin. Plan to pro vide 7-day course. Cefepime was switched to Rocephin Continue supplemental oxygen to keep saturation above 92%; wean off as tolerated. Does not use supplemental oxygen at home. Will need 2 step test p rior to discharge. DuoNebs, hypertonic saline for airway clearance. Started on steroids given bilateral wheeze on examination. Will provide 5-day course no known history of COPD; patient former smoker. Also started on budesonide and formoterol nebs. He will need inhaled corticosteroid and inhaled anticholinergic at discharge as CT findings were suggestive of infection. DC steroid in few days. Pulm evaled, f/u CT chest in 2-3 months. PFT as OP, f/u pulm on DC. Right heart failure: Elevated troponin: High sensitive troponin elevated to 51.2, next troponin was 50.3.; Likely due to demand ischemia Patient denies chest pain. EKG - normal sinus rhythm with nonspecific ST or T wave changes and PVC Echocardiogram reviewed; EF of 55 to 60%, right ventricular moderately dilated with severe pulmonary hypertension. 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 -- they evaled, appreciate recs. will c/w use of low dose lasix for now. Elevated liver enzymes: Possible causes include drug induced cholestasis (? Antibiotic, methimazole), right heart failure Liver enzymes trending up;AST/[id number]/274 Right upper quadrant ultrasound unremarkable. Prior attending discussed with Dr. Belcher from endocrinology. It is unlikely that methimazole is causing elevated liver enzymes since patient is taking it since November. He recommends that methimazole can be kept on hold for 7 days; restart at 10 mg twice daily. Outpatient follow-up would be set up for the patient. 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 Free T4 within normal limits. TSH low. hypertensionnot on any medication. Continue to monitor; expect to improve after completion of steroid therapy. 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 Avoid nephrotoxic agents. BMP daily DVT Px: Hep SC Dispo: pt/ot. Cm to assist. likely can dc cheryl. Admission and Anticipated Discharge Date Admission Date: May 16, 2023 Subjective Patient seen and examined at bedside as a follow-up of acute hypoxemic respiratory failure, pneumonia, elevated liver enzymes. Patient was lying in bed, on 2 L nasal cannula oxygen, NAD, reports sleeping very well overnight, denies any new acute event overnight, reports eating okay and moving bowels okay, reports feeling better. Also reports his cough and breathing getting better. Physical Exam Physical Exam: GENERAL: Alert and oriented x3. NAD, on 2L NC O2. HEENT: No pallor, no icterus. Pupils equal, round and reactive to light. Oral mucosa moist. NECK: No JVD, no neck masses. HEART: S1 and S2 heard. Regular rate and rhythm. No murmur, no gallop. RESPIRATORY SYSTEM: Normal AP diameter. No accessory muscle use. No wheezing, no crackles. ABDOMEN: Soft, bowel sounds present, nontender, no distention. CENTRAL NERVOUS SYSTEM: No facial droop. Speech is clear. Obeys simple commands. Moves extremities. EXTREMITIES: trace ble edema, no erythema seen. Results & Data Results & Data Vital Signs (Past 12 Hours) Vital Signs Temp Pulse Pulse Resp BP Pulse Ox O2 Del Method 05/19/23 11:53 36.5 C 82 20 142/87 H 93 Nasal Cannula 05/19/23 08:00 Nasal Cannula 05/19/23 07:38 36.6 C 74 18 133/77 92 Nasal Cannula 05/19/23 07:18 74 18 92 Nasal Cannula 05/19/23 07:01 54 L 05/19/23 03:33 20 92 Nasal Cannula O2 Flow Rate 05/19/23 11:53 2 05/19/23 08:00 2 05/19/23 07:38 2 05/19/23 07:18 3 05/19/23 07:01 05/19/23 03:33 3
[2023-05-19] MEDS: GABAPENTIN 600 MG TAB PO SCH (21:31)
[2023-05-20] MEDS: HEPARIN SOD 5,000 UNIT/0.5 ML VIAL SQ SCH ×3 (05:53→21:02)
[2023-05-20 06:46] LABS: Hematocrit (blood only) 34.2 % (42.0-52.0); Hemoglobin 11.9 g/dl (14.0-18.0); Mean Corpuscular Hemoglobin 30.5 pg (25.0-34.0); Mean Corpuscular Hgb Conc 34.8 g/dL (32.0-36.0); Mean Corpuscular Volume 87.7 fL (80.0-100.0); Mean Platelet Volume 10.2 fL (9.4-12.4); Platelet Count 314 K/uL (130-400); RDW Coefficient of Variation 12.6 % (11.5-14.5); RDW Standard Deviation 40.5 fL (36.4-46.3); White Blood Count 7.12 K/ul (4.8-10.8)
[2023-05-20 07:08] LABS: BUN Creatinine Ratio 26.7 (10-20); Calcium 8.1 mg/dl (8.6-10.3); Creatinine Clr Calc Pharmacy 43.3 ml/min; Est GFR (African American) 57.5 ml/min; Est GFR (Non-African American) 49.6 ml/min; Magnesium 2.1 mg/dl (1.7-2.4); Phosphorus 3.2 mg/dl (2.5-4.9); Potassium 3.9 mmol/L (3.5-5.1)
[2023-05-20] MEDS: ALBUT/IPRATROP 3MG/0.5MG NEB 3 ML VIAL NEB SCH ×2 (07:13→19:04)
[2023-05-20] MEDS: SODIUM CHLOR 7% 4 ML NEB NEB SCH ×2 (07:13→19:04)
[2023-05-20] MEDS: UMECLIDINIUM/VILANTEROL 62.5/25MCG 7 PUFFS/INHALER INH SCH (09:01)
[2023-05-20] MEDS: AMOXICILLIN 500 MG CAP PO SCH ×3 (09:01→21:02)
[2023-05-20] MEDS: ADVANCED PROBIOTIC 1250 MG CAPSULE PO SCH (09:01)
[2023-05-20] MEDS: CHOLECALCIFEROL 1,000 UNITS 25 MCG TAB PO SCH (09:01)
[2023-05-20] MEDS: FUROSEMIDE 20 MG TAB PO SCH (09:01)
[2023-05-20] MEDS: predniSONE 20 MG TAB PO SCH (09:01)
[2023-05-20] MEDS: ASPIRIN 81 MG ECTAB PO SCH (09:02)
--- NOTE | 2023-05-20 18:40 | Hospitalist Progress Note ---
Date of Service May 20, 2023 Assessment & Plan (1) Acute respiratory failure with hypoxia: Plan Acute hypoxemic respiratory failure: Pneumonia: Patient presents to the ED with 3-day history of cough, generalized weakness and fever; found to be hypoxic 84% on RA. Leucocytosis + & procal elevated. Sputum culture showedStreptococcus pneumoniae CT angio chest reviewed; no PE. Increasing 4 cm subpleural airway opacity within right lower lobe since March 2023. Speech evaluation done; recommend regular diet. Video swallow study and recommendation appreciated. Cefepime and doxycycline initially, then, Cefepime was switched to Rocephin; cur rently on amoxicillin. Plan to provide 7-day course. Continue supplemental oxygen to keep saturation above 92%; wean off as tolerated. Does not use supplemental oxygen at home. Will need 2 step test p rior to discharge. DuoNebs, hypertonic saline for airway clearance. Started on steroids given bilateral wheeze on examination. Will provide 5-day course no known history of COPD; patient former smoker. Also started on budesonide and formoterol nebs. He will need inhaled corticosteroid and inhaled anticholinergic at discharge as CT findings were suggestive of infection. DC steroid in few days. Pulm evaled, f/u CT chest in 2-3 months. PFT as OP, f/u pulm on DC. Right heart failure: Elevated troponin: High sensitive troponin elevated to 51.2, next troponin was 50.3.; Likely due to demand ischemia Patient denies chest pain. EKG - normal sinus rhythm with nonspecific ST or T wave changes and PVC Echocardiogram reviewed; EF of 55 to 60%, right ventricular moderately dilated with severe pulmonary hypertension. 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 -- they evaled, appreciate recs. will c/w use of low dose lasix for now. Elevated liver enzymes: Possible causes include drug induced cholestasis (? Antibiotic, methimazole), right heart failure Liver enzymes trending up;AST/[id number]/274 Right upper quadrant ultrasound unremarkable. Prior attending discussed with Dr. Belcher from endocrinology. It is unlikely that methimazole is causing elevated liver enzymes since patient is taking it since November. He recommends that methimazole can be kept on hold for 7 days; r estart at 10 mg twice daily. Outpatient follow-up would be set up for the patient. 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 Free T4 within normal limits. TSH low. hypertensionnot on any medication. Continue to monitor; expect to improve after completion of steroid therapy. 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 Avoid nephrotoxic agents. BMP daily DVT Px: Hep SC Dispo: pt/ot. Cm to assist. stable for dc to rehab. Admission and Anticipated Discharge Date Admission Date: May 16, 2023 Subjective Patient seen and examined at bedside as a follow-up of acute hypoxemic respiratory failure, pneumonia, elevated liver enzymes. Patient was lying in bed, on 2 L nasal cannula oxygen, NAD, reports sleeping ok overnight, denies any new acute event overnight, reports eating okay and moving bowels okay, reports feeling better. Also reports his cough and breathing getting better. Physical Exam Physical Exam: GENERAL: Alert and oriented x3. NAD, on 2L NC O2. HEENT: No pallor, no icterus. Pupils equal, round and reactive to light. Oral mucosa moist. NECK: No JVD, no neck masses. HEART: S1 and S2 heard. Regular rate and rhythm. No murmur, no gallop. RESPIRATORY SYSTEM: Normal AP diameter. No accessory muscle use. No wheezing, no crackles. ABDOMEN: Soft, bowel sounds present, nontender, no distention. CENTRAL NERVOUS SYSTEM: No facial droop. Speech is clear. Obeys simple commands. Moves extremities. EXTREMITIES: trace ble edema, no erythema seen. Results & Data Results & Data Vital Signs (Past 12 Hours) Vital Signs Temp Pulse Pulse Resp BP BP Pulse Ox 05/20/23 15:44 36.7 C 85 20 136/85 93 05/20/23 15:40 76 05/20/23 11:59 76 05/20/23 11:02 36.5 C 76 19 146/85 H 95 05/20/23 09:53 05/20/23 08:00 76 05/20/23 07:29 36.7 C 63 18 159/90 H 90 05/20/23 07:14 66 18 86 L O2 Del Method O2 Flow Rate 05/20/23 15:44 Nasal Cannula 2 05/20/23 15:40 05/20/23 11:59 05/20/23 11:02 Nasal Cannula 2 05/20/23 09:53 Nasal Cannula 2 05/20/23 08:00 05/20/23 07:29 Room Air 05/20/23 07:14 Nasal Cannula 2
[2023-05-20] MEDS: GABAPENTIN 600 MG TAB PO SCH (21:02)
[2023-05-21] MEDS: HEPARIN SOD 5,000 UNIT/0.5 ML VIAL SQ SCH ×3 (05:42→22:05)
[2023-05-21] MEDS: ALBUT/IPRATROP 3MG/0.5MG NEB 3 ML VIAL NEB SCH ×2 (07:13→19:31)
[2023-05-21] MEDS: SODIUM CHLOR 7% 4 ML NEB NEB SCH ×2 (07:13→19:31)
[2023-05-21] MEDS: UMECLIDINIUM/VILANTEROL 62.5/25MCG 7 PUFFS/INHALER INH SCH (08:19)
[2023-05-21] MEDS: ASPIRIN 81 MG ECTAB PO SCH (08:20)
[2023-05-21] MEDS: ADVANCED PROBIOTIC 1250 MG CAPSULE PO SCH (08:20)
[2023-05-21] MEDS: AMOXICILLIN 500 MG CAP PO SCH ×3 (08:20→20:20)
[2023-05-21] MEDS: FUROSEMIDE 20 MG TAB PO SCH (08:20)
[2023-05-21] MEDS: CHOLECALCIFEROL 1,000 UNITS 25 MCG TAB PO SCH (08:20)
[2023-05-21] MEDS: predniSONE 20 MG TAB PO SCH (08:20)
[2023-05-21 09:56] LABS: Albumin Globulin Ratio 1.3 (0.9-2); Albumin Level 3.4 gm/dl (3.4-5.0); Bilirubin,Total 0.7 mg/dl (0.2-1.0); Est GFR (African American) 58.6 ml/min; Est GFR (Non-African American) 50.6 ml/min; Globulin 2.6 gm/dl (2.5-4.0)
--- NOTE | 2023-05-21 15:26 | Hospitalist Progress Note ---
Date of Service May 21, 2023 Assessment & Plan (1) Acute respiratory failure with hypoxia: Plan Acute hypoxemic respiratory failure: Pneumonia: Patient presents to the ED with 3-day history of cough, generalized weakness and fever; found to be hypoxic 84% on RA. Leucocytosis + & procal elevated. Sputum culture showedStreptococcus pneumoniae CT angio chest reviewed; no PE. Increasing 4 cm subpleural airway opacity within right lower lobe since March 2023. Speech evaluation done; recommend regular diet. Video swallow study and recommendation appreciated. Cefepime and doxycycline initially, then, Cefepime was switched to Rocephin; cur rently on amoxicillin. Plan to provide 7-day course. Continue supplemental oxygen to keep saturation above 92%; wean off as tolerated. Does not use supplemental oxygen at home. Will need 2 step test p rior to discharge. DuoNebs, hypertonic saline for airway clearance. Started on steroids given bilateral wheeze on examination. DC p.o. steroid, start budesonide inhalation. Continue Anoro. Pulm evaled, f/u CT chest in 2-3 months. PFT as OP, f/u pulm on DC. Right heart failure: Elevated troponin: High sensitive troponin elevated to 51.2, next troponin was 50.3.; Likely due to demand ischemia Patient denies chest pain. EKG - normal sinus rhythm with nonspecific ST or T wave changes and PVC Echocardiogram reviewed; EF of 55 to 60%, right ventricular moderately dilated with severe pulmonary hypertension. CT angio done to rule out PE BNP elevated will get cardiology and sales representatives evaluation regarding evaluation of right heart failure. -- they evaled, appreciate recs. will c/w use of low dose lasix for now. Elevated liver enzymes: Possible causes include drug induced cholestasis (? Antibiotic, methimazole), right heart failure Right upper quadrant ultrasound unremarkable. Prior attending discussed with Dr. Belcher from endocrinology. It is unlikely that methimazole is causing elevated liver enzymes since patient is taking it since November. He recommends that methimazole can be kept on hold for 7 days; restart at 10 mg twice daily. Outpatient follow-up would be set up for the patient. Monitor LFTs daily until normal/stable for few days. 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 Free T4 within normal limits. TSH low. hypertensionnot on any medication. Continue to monitor; expect to improve after completion of steroid therapy. 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 Avoid nephrotoxic agents. BMP daily DVT Px: Hep SC Dispo: pt/ot. Cm to assist. stable for dc to rehab. to med/surg. Admission and Anticipated Discharge Date Admission Date: May 16, 2023 Subjective Patient seen and examined at bedside as a follow-up of acute hypoxemic respiratory failure, pneumonia, elevated liver enzymes. Patient was lying in bed, on 2 L nasal cannula oxygen, NAD, reports sleeping ok overnight, denies any new acute event overnight, reports eating okay and moving bowels okay, reports feeling better. Also reports his cough and breathing getting better. Did peer to peer today, got accepted for [facility]. Physical Exam Physical Exam: GENERAL: Alert and oriented x3. NAD, on 2L NC O2. HEENT: No pallor, no icterus. Pupils equal, round and reactive to light. Oral mucosa moist. NECK: No JVD, no neck masses. HEART: S1 and S2 heard. Regular rate and rhythm. No murmur, no gallop. RESPIRATORY SYSTEM: Normal AP diameter. No accessory muscle use. No wheezing, no crackles. ABDOMEN: Soft, bowel sounds present, nontender, no distention. CENTRAL NERVOUS SYSTEM: No facial droop. Speech is clear. Obeys simple commands. Moves extremities. EXTREMITIES: trace ble edema, no erythema seen. Results & Data Results & Data Vital Signs (Past 12 Hours) Vital Signs Temp Pulse Pulse Resp BP Pulse Ox O2 Del Method 05/21/23 12:03 67 05/21/23 11:48 36.7 C 89 18 142/76 H 97 Nasal Cannula 05/21/23 09:05 Nasal Cannula 05/21/23 09:04 67 05/21/23 07:55 36.7 C 77 18 138/63 96 Nasal Cannula 05/21/23 07:13 64 16 93 Nasal Cannula O2 Flow Rate 05/21/23 12:03 05/21/23 11:48 2 05/21/23 09:05 2 05/21/23 09:04 05/21/23 07:55 2 05/21/23 07:13 3
[2023-05-21] MEDS: GABAPENTIN 600 MG TAB PO SCH (20:20)
[2023-05-21] MEDS ORDERED: BUDESONIDE 90 MCG INH INH SCH (21:00)
[2023-05-22] MEDS: HEPARIN SOD 5,000 UNIT/0.5 ML VIAL SQ SCH ×3 (05:40→21:32)
[2023-05-22] MEDS: SODIUM CHLOR 7% 4 ML NEB NEB SCH ×2 (07:01→19:26)
[2023-05-22] MEDS: ALBUT/IPRATROP 3MG/0.5MG NEB 3 ML VIAL NEB SCH ×2 (07:01→19:26)
[2023-05-22] MEDS: ADVANCED PROBIOTIC 1250 MG CAPSULE PO SCH (07:40)
[2023-05-22] MEDS: ASPIRIN 81 MG ECTAB PO SCH (07:40)
[2023-05-22] MEDS: CHOLECALCIFEROL 1,000 UNITS 25 MCG TAB PO SCH (07:40)
[2023-05-22] MEDS: AMOXICILLIN 500 MG CAP PO SCH ×3 (07:40→20:13)
[2023-05-22] MEDS: FLUTICASONE FUROATE 100MCG 14 PUFFS/INHALER INH SCH (07:41)
[2023-05-22] MEDS: FUROSEMIDE 20 MG TAB PO SCH (07:41)
[2023-05-22] MEDS: UMECLIDINIUM/VILANTEROL 62.5/25MCG 7 PUFFS/INHALER INH SCH (07:41)
[2023-05-22 08:02] LABS: Albumin Globulin Ratio 1.3 (0.9-2); Albumin Level 2.9 gm/dl (3.4-5.0); BUN Creatinine Ratio 30.4 (10-20); Bilirubin,Total 0.7 mg/dl (0.2-1.0); Calcium 8.1 mg/dl (8.6-10.3); Creatinine Clr Calc Pharmacy 49.4 ml/min; Est GFR (African American) 67.4 ml/min; Est GFR (Non-African American) 58.1 ml/min; Globulin 2.2 gm/dl (2.5-4.0); Potassium 3.8 mmol/L (3.5-5.1); Total Protein 5.1 gm/dl (6.0-8.3)
--- NOTE | 2023-05-22 15:54 | Hospitalist Progress Note ---
Date of Service May 22, 2023 Assessment & Plan (1) Acute respiratory failure with hypoxia: Plan Acute hypoxemic respiratory failure: Pneumonia: Patient presents to the ED with 3-day history of cough, generalized weakness and fever; found to be hypoxic 84% on RA. Leucocytosis + & procal elevated. Sputum culture showedStreptococcus pneumoniae CT angio chest reviewed; no PE. Increasing 4 cm subpleural airway opacity within right lower lobe since March 2023. Speech evaluation done; recommend regular diet. Video swallow study and recommendation appreciated. Cefepime and doxycycline initially, then, Cefepime was switched to Rocephin; currently on amoxicillin. Plan to provide 7-day course. Continue supplemental oxygen to keep saturation above 92%; wean off as tolerated. Does not use supplemental oxygen at home. Will need 2 step test p rior to discharge. DuoNebs, hypertonic saline for airway clearance. c/w steroid inhalation. Continue Anoro. Pulm evaled, f/u CT chest in 2-3 months. PFT as OP, f/u pulm on DC. Right heart failure: Elevated troponin: High sensitive troponin elevated to 51.2, next troponin was 50.3.; Likely due to demand ischemia Patient denies chest pain. EKG - normal sinus rhythm with nonspecific ST or T wave changes and PVC Echocardiogram reviewed; EF of 55 to 60%, right ventricular moderately dilated with severe pulmonary hypertension. CT angio done to rule out PE BNP elevated will get cardiology and cotton feeder evaluation regarding evaluation of right heart failure. -- they evaled, appreciate recs. will c/w use of low dose lasix for now. Elevated liver enzymes: Possible causes include drug induced cholestasis (? Antibiotic, methimazole), right heart failure Right upper quadrant ultrasound unremarkable. Prior attending discussed with Dr. Belcher from endocrinology. It is unlikely that methimazole is causing elevated liver enzymes since patient is taking it since November. He recommends that methimazole can be kept on hold for 7 days; restart at 10 mg twice daily. Outpatient follow-up would be set up for the patient. Monitor LFTs daily until normal/stable for few days. 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 Free T4 within normal limits. TSH low. hypertensionnot on any medication. Continue to monitor; expect to improve after completion of steroid therapy. 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 Avoid nephrotoxic agents. BMP daily DVT Px: Hep SC Dispo: pt/ot. Cm to assist. stable for dc to rehab. to med/surg. Admission and Anticipated Discharge Date Admission Date: May 16, 2023 Subjective Patient seen and examined at bedside as a follow-up of acute hypoxemic respiratory failure, pneumonia, elevated liver enzymes. Patient was lying in bed, on 3 L nasal cannula oxygen, NAD, reports sleeping ok overnight, denies any new acute event overnight, reports eating okay and moving bowels okay, reports feeling better. Also reports his cough and breathing getting better. Physical Exam Physical Exam: GENERAL: Alert and oriented x3. NAD, on 3L NC O2. HEENT: No pallor, no icterus. Pupils equal, round and reactive to light. Oral mucosa moist. NECK: No JVD, no neck masses. HEART: S1 and S2 heard. Regular rate and rhythm. No murmur, no gallop. RESPIRATORY SYSTEM: Normal AP diameter. No accessory muscle use. No wheezing, no crackles. ABDOMEN: Soft, bowel sounds present, nontender, no distention. CENTRAL NERVOUS SYSTEM: No facial droop. Speech is clear. Obeys simple commands. Moves extremities. EXTREMITIES: trace ble edema, no erythema seen. Results & Data Results & Data Vital Signs (Past 12 Hours) Vital Signs Temp Pulse Resp BP Pulse Ox O2 Del Method O2 Flow Rate 05/22/23 14:57 36.4 C L 89 16 120/68 97 Nasal Cannula 3 05/22/23 07:53 Nasal Cannula 3 05/22/23 07:30 36.5 C 78 16 147/80 H 92 Nasal Cannula 3 05/22/23 07:02 75 20 90 Nasal Cannula 3
[2023-05-22] MEDS: GABAPENTIN 600 MG TAB PO SCH (20:13)
[2023-05-23 02:35] LABS: Allen Test Pos (Pos); Base Excess ABG 1.5 mEq/L (-9-1.8); HCO3 ABG 25 mmol/L (19-24); Oxygen Saturation ABG 97.5 % (90-95); PCO2 ABG 34 mmHg (35-46); PO2 ABG 77 mmHg (80-95); pH ABG 7.47 (7.35-7.45)
[2023-05-23 02:44] LABS: Basophils # (auto) 0.04 K/uL (0-0.2); Basophils % (auto) 0.3 %; Eosinophils # (auto) 0.57 K/uL (0-0.50); Eosinophils % (auto) 4.9 %; Hematocrit (blood only) 33.3 % (42.0-52.0); Hemoglobin 11.2 g/dl (14.0-18.0); Immature Granulocytes # (auto) 0.22 K/uL (0.01-0.20); Immature Granulocytes % (auto) 1.9 %; Lymphocytes % (auto) 18.8 %; Mean Corpuscular Hemoglobin 30.5 pg (25.0-34.0); Mean Corpuscular Hgb Conc 33.6 g/dL (32.0-36.0); Mean Corpuscular Volume 90.7 fL (80.0-100.0); Mean Platelet Volume 10.1 fL (9.4-12.4); Monocytes # (auto) 1.27 K/uL (0.11-0.59); Monocytes % (auto) 10.9 %; Neutrophils % (auto) 63.2 %; Platelet Count 371 K/uL (130-400); RDW Coefficient of Variation 12.9 % (11.5-14.5); RDW Standard Deviation 42.6 fL (36.4-46.3); Red Blood Count 3.67 M/uL (4.70-6.10)
[2023-05-23 03:00] LABS: Partial Thromboplastin Ratio 1.1; Partial Thromboplastin Time 31.3 Seconds (21.0-31.0)
[2023-05-23 03:01] LABS: Albumin Globulin Ratio 1.4 (0.9-2); Albumin Level 2.7 gm/dl (3.4-5.0); BUN Creatinine Ratio 52.5 (10-20); Bilirubin,Total 0.6 mg/dl (0.2-1.0); Calcium 7.9 mg/dl (8.6-10.3); Creatinine Clr Calc Pharmacy 40.3 ml/min; Est GFR (African American) 52.6 ml/min; Est GFR (Non-African American) 45.4 ml/min; Magnesium 1.8 mg/dl (1.7-2.4); Total Protein 4.7 gm/dl (6.0-8.3)
--- NOTE | 2023-05-23 04:14 | Communication Note ---
Date of Service: May 23, 2023 Patient found transiently unresponsive while on the commode. Denies headache, chest pain, SOB, abdominal pain. No witnessed seizures or tongue biting. Patient just remembers feeling hot. SBP 100s. Near syncopal episode as per RN during orthostatic vitals. Serum creatinine 1.4 AP Syncope secondary to orthostasis ARF possible overdiuresis Hold Lasix for now Baseline UA, IV albumin
[2023-05-23] MEDS: ALBUMIN 25% 25 GM/100 ML VIAL IV SCH ×3 (05:14→20:32)
[2023-05-23] MEDS: HEPARIN SOD 5,000 UNIT/0.5 ML VIAL SQ SCH ×2 (05:31→14:47)
[2023-05-23] MEDS ORDERED: MAGNESIUM SULFATE / D5W 1 GM/100 ML BAG IV ONE (05:40)
[2023-05-23] MEDS: ALBUT/IPRATROP 3MG/0.5MG NEB 3 ML VIAL NEB SCH ×2 (07:11→19:25)
[2023-05-23] MEDS: SODIUM CHLOR 7% 4 ML NEB NEB SCH ×2 (07:11→19:25)
[2023-05-23] MEDS: ADVANCED PROBIOTIC 1250 MG CAPSULE PO SCH (07:51)
[2023-05-23] MEDS: FLUTICASONE FUROATE 100MCG 14 PUFFS/INHALER INH SCH (07:52)
[2023-05-23] MEDS: CHOLECALCIFEROL 1,000 UNITS 25 MCG TAB PO SCH (07:52)
[2023-05-23] MEDS: AMOXICILLIN 500 MG CAP PO SCH (07:52)
[2023-05-23] MEDS: ASPIRIN 81 MG ECTAB PO SCH (07:52)
[2023-05-23] MEDS: UMECLIDINIUM/VILANTEROL 62.5/25MCG 7 PUFFS/INHALER INH SCH (07:52)
--- NOTE | 2023-05-23 08:59 | XRay Report ---
SINGLE VIEW CHEST CLINICAL HISTORY: Hypoxia FINDINGS: 2 AP, portable, upright chest radiographs are compared to study dated 05/16/2023 and correla rosa with chest CT dated 05/18/2023. The heart is enlarged noting atherosclerotic calcification of the thoracic aorta. The pulmonary vasculature is noncongested. Emphysema and chronic interstitial thicken ing is similar to previous. There are small pleural effusions. Foci of parenchymal scarring are seen throughout both lungs. Airspace consolidation is again seen at the right lung base. No pneumothorax i s seen. The skeletal structures are osteopenic. The bony thorax is grossly intact. Arthritic change i s seen in the shoulders and spine. IMPRESSION: 1. Cardiomegaly and emphysema without radiographic evidence of congestive failure. 2. Airspace consolidation of the right lung base likely represents pneumonia/aspiration pneumonitis. Clinical correlation will be required an radiographic follow-up to resolution is recommended. 3. Small pleural effusions.. ACT 112: Negative or not required by law. Electronically signed by: Steven Bañuelos M.D. 05/23/2023 8:58 AM
[2023-05-23 12:49] LABS: Appearance Urine Clear (Clear); Bilirubin Urine Negative (Negative); Blood Urine Negative (Negative); Color Urine Yellow; Glucose Urine UA Negative (Negative); Ketones Urine Negative (Negative); Leukocyte Esterase Urine Negative (Negative); Nitrite Urine Negative (Negative); Protein Urine Negative (Negative); Specific Gravity Urine 1.019 (1.000-1.030); Urobilinogen Urine Negative (Negative)
--- NOTE | 2023-05-23 16:01 | Hospitalist Progress Note ---
Date of Service May 23, 2023 Assessment & Plan (1) Acute respiratory failure with hypoxia: Plan Acute hypoxemic respiratory failure: Pneumonia: Patient presents to the ED with 3-day history of cough, generalized weakness and fever; found to be hypoxic 84% on RA. Leucocytosis + & procal elevated. Sputum culture showedStreptococcus pneumoniae CT angio chest reviewed; no PE. Increasing 4 cm subpleural airway opacity within right lower lobe since March 2023. Speech evaluation done; recommend regular diet. Video swallow study and recommendation appreciated. Cefepime and doxycycline initially, then, Cefepime was switched to Rocephin; currently on amoxicillin -- completed 7 day course 05/23. Continue supplemental oxygen to keep saturation above 92%; wean off as tolerated. Does not use supplemental oxygen at home. Will need 2 step test p rior to discharge. DuoNebs, hypertonic saline for airway clearance. c/w steroid inhalation. Continue Anoro. Pulm evaled, f/u CT chest in 2-3 months. PFT as OP, f/u pulm on DC. DC atb today, s/p 7 day course. Loose stool 2/2 atb use: send c diff if w/ further loose stool, pedialyte, now appears stable. Acute kidney injury over CKD III: prerenal 2/2 voluminous loose stool, on iv albumin, labs in am, c/w oral intake and pedialyte solution. hold lasix for now. Right heart failure: Elevated troponin: High sensitive troponin elevated to 51.2, next troponin was 50.3.; Likely due to demand ischemia Patient denies chest pain. EKG - normal sinus rhythm with nonspecific ST or T wave changes and PVC Echocardiogram reviewed; EF of 55 to 60%, right ventricular moderately dilated with severe pulmonary hypertension. CT angio done to rule out PE BNP elevated will get cardiology and clinical programmer evaluation regarding evaluation of right heart failure. -- they evaled, appreciate recs. will c/w use of low dose lasix for now. Elevated liver enzymes: Possible causes include drug induced cholestasis (? Antibiotic, methimazole), right heart failure Right upper quadrant ultrasound unremarkable. Prior attending discussed with Dr. Belcher from endocrinology. It is unlikely that methimazole is causing elevated liver enzymes since patient is taking it since November. He recommends that methimazole can be kept on hold for 7 days; restart at 10 mg twice daily. Outpatient follow-up would be set up for the patient. Monitor LFTs daily until normal/stable for few days. 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 Free T4 within normal limits. TSH low. hypertensionnot on any medication. Continue to monitor; expect to improve after completion of steroid therapy. 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 Avoid nephrotoxic agents. BMP daily DVT Px: Hep SC Dispo: pt/ot. Cm to assist. pending renal improvement. Admission and Anticipated Discharge Date Admission Date: May 16, 2023 Subjective Patient seen and examined at bedside as a follow-up of acute hypoxemic respiratory failure, pneumonia, elevated liver enzymes. Patient was lying in bed, on 4 L nasal cannula oxygen, NAD, overnight pt was found weak while sitting on commode/feeling hot ?? vasovagal, and was found to have ALINA in labs, w/ loose stool in the night and in AM, likely 2/2 atb, completes 7 day course of Atb today, will dc atb, c/w probiotic, send c diff if with further loose bowels; pedialyte by bedside, closely monitor. RN communicated of the plan. Pt reports eating okay, reports feeling tired. Also reports his cough and breathing getting better. Denies fever. Physical Exam Physical Exam: GENERAL: Alert and oriented x3. NAD, on 4L NC O2. looks tired. HEENT: No pallor, no icterus. Pupils equal, round and reactive to light. Oral mucosa moist. NECK: No JVD, no neck masses. HEART: S1 and S2 heard. Regular rate and rhythm. No murmur, no gallop. RESPIRATORY SYSTEM: Normal AP diameter. No accessory muscle use. No wheezing, no crackles. ABDOMEN: Soft, bowel sounds present, nontender, no distention. CENTRAL NERVOUS SYSTEM: No facial droop. Speech is clear. Obeys simple commands. Moves extremities. EXTREMITIES: trace ble edema, no erythema seen. Results & Data Results & Data Vital Signs (Past 12 Hours) Vital Signs Temp Pulse Resp BP BP Pulse Ox O2 Del Method 05/23/23 14:57 36.6 C 87 16 114/67 96 Nasal Cannula 05/23/23 12:23 36.3 C L 93 H 16 117/74 98 Nasal Cannula 05/23/23 07:57 Nasal Cannula 05/23/23 07:40 36.3 C L 96 H 16 123/78 98 Nasal Cannula 05/23/23 07:12 104 H 18 98 Nasal Cannula 05/23/23 05:15 104 H 18 101/59 L 96 Nasal Cannula O2 Flow Rate 05/23/23 14:57 3 05/23/23 12:23 4 05/23/23 07:57 5 05/23/23 07:40 3 05/23/23 07:12 6 05/23/23 05:15 5
[2023-05-23] MEDS: GABAPENTIN 300 MG CAP PO SCH (20:32)
[2023-05-24] MEDS: ALBUMIN 25% 25 GM/100 ML VIAL IV SCH ×3 (04:04→21:05)
[2023-05-24] MEDS: SODIUM CHLOR 7% 4 ML NEB NEB SCH ×2 (07:13→19:54)
[2023-05-24] MEDS: ALBUT/IPRATROP 3MG/0.5MG NEB 3 ML VIAL NEB SCH ×2 (07:13→19:54)
[2023-05-24 07:30] LABS: Mean Corpuscular Hemoglobin 30.8 pg (25.0-34.0); Mean Corpuscular Hgb Conc 33.3 g/dL (32.0-36.0); Mean Corpuscular Volume 92.3 fL (80.0-100.0); Platelet Count 268 K/uL (130-400); RDW Coefficient of Variation 13.2 % (11.5-14.5); White Blood Count 7.32 K/ul (4.8-10.8)
[2023-05-24 07:35] LABS: Albumin Level 3.5 gm/dl (3.4-5.0); BUN Creatinine Ratio 42.3 (10-20); Bilirubin Direct 0.1 mg/dl (0-0.2); Bilirubin,Total 0.6 mg/dl (0.2-1.0); Calcium 8.4 mg/dl (8.6-10.3); Creatinine Clr Calc Pharmacy 51.2 ml/min; Est GFR (African American) 70.3 ml/min; Est GFR (Non-African American) 60.7 ml/min; Magnesium 2.1 mg/dl (1.7-2.4); Phosphorus 3.5 mg/dl (2.5-4.9); Potassium 4.5 mmol/L (3.5-5.1); Total Protein 5.2 gm/dl (6.0-8.3)
[2023-05-24] MEDS: SODIUM CHLORIDE 0.9% 1000ML 1,000 ML IV SCH (08:38)
[2023-05-24] MEDS: CHOLECALCIFEROL 1,000 UNITS 25 MCG TAB PO SCH (08:39)
[2023-05-24] MEDS: ADVANCED PROBIOTIC 1250 MG CAPSULE PO SCH (08:40)
[2023-05-24] MEDS: UMECLIDINIUM/VILANTEROL 62.5/25MCG 7 PUFFS/INHALER INH SCH (08:41)
[2023-05-24] MEDS: PANTOprazole 40 MG in SYRINGE 0 ML IV SCH ×2 (09:35→21:06)
--- NOTE | 2023-05-24 09:43 | Gastrointestinal Consultation ---
Supervising Physician's note Case discussed with Melanie Hawk NP, chart reviewed, patient seen and examined. 82 year old man who has been in the hospital for 8 days. Hemoglobin fell from 11.2 to 8.0 over night and he has "occult blood" in his stool. Patient states he has been having his normal one bowel movement per day although a little loose. He says it is "dark" but not black. He denies abdominal pain. His last colonoscopy was four years ago. He also has mildly elevated LFT's I have a hard time blaming the GI tract for a 3 gm fall in hemoglobin over night without manifesting through his stools. Occult blood in stool is not GI bleeding, visible blood is. I wonder if lab is a lab error as well. I think observation is warranted at this time unless other signs of GI bleeding occur. I have spent 20 minutes on this case with record review, discussion with Melanie Hawk NP, examining patient and entering records into EMR Date of Consultation May 24, 2023 Assessment & Plan (1) GI bleeding: GI bleeding: Patient has no voiced GI complaints this morning but does note black stools since admission. H/H this morning 8.0/24.0 down from 11.2/33.3 05/23/23 with + FOCB. Heparin sq since admission now on hold. Would continue to monitor at this time and provide supportive measures including transfusion if indicated. Elevated liver enzymes: Continues to improve, ALT this morning 66. Case reviewed with Dr. Childers. Please refer to supervising physician addendum for further recommendations. I have spent 30 minutes of discrete time performing the activities of this visit which include but are not limited to review of the medical record, obtaining a history, physical exam, and entering information in the electronic record. (2) Elevated liver enzymes: History of Present Illness Attending Physician: Alma Rosa Doan MD History of Present Illness The patient is a pleasant 82-year-old male past medical history to include follicular lymphoma grade 2 involving left cervical lymph node in June 2006, diffuse large B-cell lymphoma involving nasopharynx in 06/2015 ( Completed last chemotherapy in November 2015), hyperthyroidism, hypertension, postherpetic neuralgia, CKD, vitamin D deficiency who presented initially due to cough, generalized weakness and fever. He was subsequently admitted due to acute hypoxemic respiratory failure and pneumonia. The GI service was consulted due to concerns for GI bleeding. The patient is hard of hearing but has no voiced complaints this morning. He states he feels pretty good. Denies abdominal pain. Reports bowel movement this morning. He states stools have been darker in color while in the hospital. No nausea or vomiting. Wearing oxygen and hopes to have this discontinued today. Patient has had subcutaneous heparin injections since admission Allergies Allergy/AdvReac Type Severity Reaction Status Date / Time No Known Allergies Allergy Verified 05/16/23 08:44 Home Medications Medication Instructions Recorded Confirmed Type acetaminophen 325 mg tablet 325 mg PO Q6H PRN fever or pain 08/23/19 05/16/23 History (Tylenol) cholecalciferol (vitamin D3) 25 2,000 units PO QAM 08/23/19 05/16/23 History mcg (1,000 unit) tablet aspirin 81 mg tablet,delayed 81 mg PO QAM 12/17/19 05/16/23 History release methimazole 10 mg tablet 10 mg PO DAILY #30 tabs 04/16/23 05/16/23 Rx gabapentin 600 mg tablet 600 mg PO HS 05/16/23 05/16/23 History Patient History Medical History Community acquired pneumonia Former smoker Lymphoma 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 Polyp of colon RSV infection Surgical History H/O varicose vein ligation Family History Father , Age 91 Renal failure Mother Breast cancer Denies family history of Ovarian cancer Prostate cancer Myocardial infarction Colorectal cancer Social History (Updated 02/25/23 @ 08:07 by Sudha Mchugh LPN) Smoking Status: Former smoker Tobacco Type: Cigarettes Age Quit Using Tobacco: 61; Second Hand Exposure: No; Do You Dip or Chew Tobacco: No; Hx Alcohol Use: Yes Alcohol type: beer Hx Substance Use: No Preferred Language: Kazakh Communication Ability: Effective Visual Impairment: No Limitations Hearing Ability: Hard of Hearing Stunt Man Required: No Beliefs That Will Affect Care: None marital status: Current Living Situation: Spouse current occupational status: retired How many Children do You have: 1 Feels Safe at Home: Yes Childhood Exposure to Second-Hand Smoke: No Diet: regular caffeine: Yes Dental Care, Regularly: No Physical Activity Frequency: Does not Exercise Seatbelt Use: always Sunscreen Use: No Assistive Devices: Cane Review of Systems Review of Systems: All systems reviewed & are unremarkable except as noted in Subjective Physical Exam Gastrointestinal (Abdomen): normal bowel sounds, soft, nontender, no hepatosplenomegaly Results & Data Vital Signs (Past 12 Hours) Vital Signs Temp Pulse Resp BP BP Pulse Ox O2 Del Method 05/24/23 07:44 36.4 C L 65 16 132/80 94 Nasal Cannula 05/24/23 07:13 71 17 98 Nasal Cannula 05/24/23 05:45 36.5 C 71 16 120/80 95 Nasal Cannula 05/23/23 22:18 36.6 C 74 16 121/74 96 Nasal Cannula O2 Flow Rate 05/24/23 07:44 2 05/24/23 07:13 3 05/24/23 05:45 3 05/23/23 22:18 3 Laboratory Results Laboratory Results - last 24 hr 05/23/23 05/23/23 05/23/23 12:30 17:45 17:45 WBC RBC Hgb Hct MCV MCH MCHC RDW Std Deviation RDW Coeff of Chantal Plt Count MPV Sodium Potassium Chloride Carbon Dioxide Anion Gap BUN Creatinine Est Cr Clr Drug Dosing Est GFR ( Amer) Est GFR (Non-Af Amer) BUN/Creatinine Ratio Glucose Calcium Phosphorus Magnesium Total Bilirubin Direct Bilirubin AST ALT Alkaline Phosphatase Total Protein Albumin Urine Color Yellow Urine Appearance Clear Urine pH 5.0 Ur Specific [place] 1.019 Urine Protein Negative Urine Glucose (UA) Negative Urine Ketones Negative Urine Blood Negative Urine Nitrite Negative Urine Bilirubin Negative Urine Urobilinogen Negative Ur Leukocyte Esterase Negative Stool Occult Bld Scrn Positive A Stl C. diff Tox B Gene Negative Cdiff Gene 05/24/23 05/24/23 06:43 06:43 WBC 7.32 RBC 2.60 L Hgb 8.0 L D Hct 24.0 L MCV 92.3 MCH 30.8 MCHC 33.3 RDW Std Deviation 44.0 RDW Coeff of Chantal 13.2 Plt Count 268 MPV 10.0 Sodium 134 L Potassium 4.5 Chloride 100 Carbon Dioxide 30 Anion Gap 4 BUN 47 H D Creatinine 1.11 D Est Cr Clr Drug Dosing 51.2 Est GFR ( Amer) 70.3 Est GFR (Non-Af Amer) 60.7 BUN/Creatinine Ratio 42.3 H Glucose 82 Calcium 8.4 L Phosphorus 3.5 Magnesium 2.1 Total Bilirubin 0.6 Direct Bilirubin 0.1 AST 31 ALT 66 H Alkaline Phosphatase 47 Total Protein 5.2 L Albumin 3.5 Urine Color Urine Appearance Urine pH Ur Specific [place] Urine Protein Urine Glucose (UA) Urine Ketones Urine Blood Urine Nitrite Urine Bilirubin Urine Urobilinogen Ur Leukocyte Esterase Stool Occult Bld Scrn Stl C. diff Tox B Gene
[2023-05-24] MEDS: FLUTICASONE FUROATE 100MCG 14 PUFFS/INHALER INH SCH (10:33)
[2023-05-24 14:58] LABS: Hematocrit (blood only) 24.2 % (42.0-52.0); Hemoglobin 8.2 g/dl (14.0-18.0)
--- NOTE | 2023-05-24 18:10 | Hospitalist Progress Note ---
Date of Service May 24, 2023 Assessment & Plan (1) Acute respiratory failure with hypoxia: Plan Acute hypoxemic respiratory failure: Pneumonia: Patient presents to the ED with 3-day history of cough, generalized weakness and fever; found to be hypoxic 84% on RA. Leucocytosis + & procal elevated. Sputum culture showedStreptococcus pneumoniae CT angio chest reviewed; no PE. Increasing 4 cm subpleural airway opacity within right lower lobe since March 2023. Speech evaluation done; recommend regular diet. Video swallow study and recommendation appreciated. Cefepime and doxycycline initially, then, Cefepime was switched to Rocephin; currently on amoxicillin -- completed 7 day course 05/23. Continue supplemental oxygen to keep saturation above 92%; wean off as tolerated. Does not use supplemental oxygen at home. Will need 2 step test p rior to discharge. DuoNebs, hypertonic saline for airway clearance. c/w steroid inhalation. Continue Anoro. Pulm evaled, f/u CT chest in 2-3 months. PFT as OP, f/u pulm on DC. s/p 7 day course of antibiotic. Loose stool 2/2 atb use: C. difficile negative, still getting better, pedialyte. Acute kidney injury over CKD III: prerenal 2/2 voluminous loose stool around 6/ to 6/2, on iv albumin, labs in am, c/w oral intake and pedialyte solution. hold lasix for now. Improving. Concern for GI bleed: Dark stool in the evening of 05/23, hemoglobin drop to 8 from about 11-12 prior hemoglobins. GI consulted. Appreciate eval. We will continue with clear diet today. Continue to hold aspirin and heparin for now. H&H in the morning or as needed. Right heart failure: Elevated troponin: High sensitive troponin elevated to 51.2, next troponin was 50.3.; Likely due to demand ischemia Patient denies chest pain. EKG - normal sinus rhythm with nonspecific ST or T wave changes and PVC Echocardiogram reviewed; EF of 55 to 60%, right ventricular moderately dilated with severe pulmonary hypertension. CT angio done to rule out PE BNP elevated will get cardiology and wind up operator evaluation regarding evaluation of right heart failure. -- they evaled, appreciate recs. will c/w use of low dose lasix for now. Elevated liver enzymes: Possible causes include drug induced cholestasis (? Antibiotic, methimazole), right heart failure Right upper quadrant ultrasound unremarkable. Prior attending discussed with Dr. Belcher from endocrinology. It is unlikely that methimazole is causing elevated liver enzymes since patient is taking it since November. He recommends that methimazole can be kept on hold for 7 days; restart at 10 mg twice daily. Outpatient follow-up would be set up for the patient. Monitor LFTs daily until normal/stable for few days. 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 Free T4 within normal limits. TSH low. hypertensionnot on any medication. Continue to monitor; expect to improve after completion of steroid therapy. 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 Avoid nephrotoxic agents. BMP daily DVT Px: Hep SC Dispo: pt/ot. Cm to assist. pending hemoglobin stabilization. Admission and Anticipated Discharge Date Admission Date: May 16, 2023 Subjective Patient seen and examined at bedside as a follow-up of acute hypoxemic respiratory failure, pneumonia, elevated liver enzymes. Patient was lying in bed, on 2 L nasal cannula oxygen, NAD, last evening with dark his stool per RN, FOBT came back positive, his hemoglobin dropped today morning. N.p.o., GI consulted, appreciate eval. Continue to hold aspirin and heparin for now, will continue with clear liquid diet for now, closely follow H&H in the morning. Patient continues to report improvement in his breathing and shortness of breath. Physical Exam Physical Exam: GENERAL: Alert and oriented x3. NAD, on 2 L NC O2. HEENT: No pallor, no icterus. Pupils equal, round and reactive to light. Oral mucosa moist. NECK: No JVD, no neck masses. HEART: S1 and S2 heard. Regular rate and rhythm. No murmur, no gallop. RESPIRATORY SYSTEM: Normal AP diameter. No accessory muscle use. No wheezing, no crackles. ABDOMEN: Soft, bowel sounds present, nontender, no distention. CENTRAL NERVOUS SYSTEM: No facial droop. Speech is clear. Obeys simple commands. Moves extremities. EXTREMITIES: trace ble edema, no erythema seen. Results & Data Results & Data Vital Signs (Past 12 Hours) Vital Signs Temp Pulse Resp BP Pulse Ox O2 Del Method O2 Flow Rate 05/24/23 18:00 36.7 C 90 16 147/74 H 95 Nasal Cannula 2 05/24/23 13:45 Nasal Cannula 2 05/24/23 07:44 36.4 C L 65 16 132/80 94 Nasal Cannula 2 05/24/23 07:13 71 17 98 Nasal Cannula 3
[2023-05-24] MEDS: ACETAMINOPHEN 325 MG TAB PO PRN (21:03)
[2023-05-24] MEDS: GABAPENTIN 300 MG CAP PO SCH (21:04)
[2023-05-25] MEDS: SODIUM CHLORIDE 0.9% 1000ML 1,000 ML IV SCH ×2 (00:54→17:05)
[2023-05-25] MEDS: ALBUMIN 25% 25 GM/100 ML VIAL IV SCH ×3 (04:48→21:30)
[2023-05-25 05:59] LABS: Hematocrit (blood only) 21.7 % (42.0-52.0); Hemoglobin 7.3 g/dl (14.0-18.0); Mean Corpuscular Hemoglobin 30.7 pg (25.0-34.0); Mean Corpuscular Hgb Conc 33.6 g/dL (32.0-36.0); Mean Corpuscular Volume 91.2 fL (80.0-100.0); Platelet Count 260 K/uL (130-400); RDW Coefficient of Variation 13.5 % (11.5-14.5); RDW Standard Deviation 44.2 fL (36.4-46.3); Red Blood Count 2.38 M/uL (4.70-6.10); White Blood Count 5.03 K/ul (4.8-10.8)
[2023-05-25 06:26] LABS: Albumin Level 3.6 gm/dl (3.4-5.0); BUN Creatinine Ratio 24.8 (10-20); Bilirubin Direct 0.2 mg/dl (0-0.2); Bilirubin,Total 0.8 mg/dl (0.2-1.0); Calcium 8.2 mg/dl (8.6-10.3); Creatinine Clr Calc Pharmacy 52.1 ml/min; Est GFR (African American) 71.9 ml/min; Potassium 4.1 mmol/L (3.5-5.1); Total Protein 5.1 gm/dl (6.0-8.3)
[2023-05-25] MEDS: CHOLECALCIFEROL 1,000 UNITS 25 MCG TAB PO SCH (07:35)
[2023-05-25] MEDS: ADVANCED PROBIOTIC 1250 MG CAPSULE PO SCH (07:35)
[2023-05-25] MEDS: PANTOprazole 40 MG in SYRINGE 0 ML IV SCH ×2 (07:36→21:06)
[2023-05-25] MEDS: UMECLIDINIUM/VILANTEROL 62.5/25MCG 7 PUFFS/INHALER INH SCH (07:36)
[2023-05-25] MEDS: FLUTICASONE FUROATE 100MCG 14 PUFFS/INHALER INH SCH (07:36)
[2023-05-25] MEDS: ALBUT/IPRATROP 3MG/0.5MG NEB 3 ML VIAL NEB SCH ×2 (07:48→20:20)
[2023-05-25] MEDS: SODIUM CHLOR 7% 4 ML NEB NEB SCH ×2 (07:48→20:20)
--- NOTE | 2023-05-25 09:21 | Gastroenterology Progress Note ---
Date of Service May 25, 2023 Assessment & Plan (1) GI bleeding: Plan: With his hemoglobin drifting down and persistently melenic stools will plan EGD for tomorrow. He agrees and thinks it is "what we should do". Admission and Anticipated Discharge Date Admission Date: May 16, 2023 Subjective Feeling well, excited about watching fireworks out his window tonight. He says he had one bowel movement this morning, nurses report it was black and liquid. Hgb down to 7.3 Physical Exam Physical Exam: Pleasant, looks well Results & Data Vital Signs (Past 12 Hours) Vital Signs Temp Pulse Resp BP BP Pulse Ox O2 Del Method 05/25/23 08:00 Nasal Cannula 05/25/23 07:48 78 18 92 Nasal Cannula 05/25/23 07:31 36.6 C 66 16 123/61 94 Nasal Cannula 05/24/23 22:15 36.7 C 77 20 119/68 96 Nasal Cannula O2 Flow Rate 05/25/23 08:00 2 05/25/23 07:48 1.5 05/25/23 07:31 2 05/24/23 22:15 1.5
[2023-05-25 14:39] LABS: Hematocrit (blood only) 22.5 % (42.0-52.0); Hemoglobin 7.4 g/dl (14.0-18.0)
--- NOTE | 2023-05-25 15:54 | Hospitalist Progress Note ---
Date of Service May 25, 2023 Assessment & Plan (1) Acute respiratory failure with hypoxia: Plan Acute hypoxemic respiratory failure: Pneumonia: Patient presents to the ED with 3-day history of cough, generalized weakness and fever; found to be hypoxic 84% on RA. Leucocytosis + & procal elevated. Sputum culture showedStreptococcus pneumoniae CT angio chest reviewed; no PE. Increasing 4 cm subpleural airway opacity within right lower lobe since March 2023. Speech evaluation done; recommend regular diet. Video swallow study and recommendation appreciated. Cefepime and doxycycline initially, then, Cefepime was switched to Rocephin; currently on amoxicillin -- completed 7 day course 05/23. Continue supplemental oxygen to keep saturation above 92%; wean off as tolerated. Does not use supplemental oxygen at home. Will need 2 step test p rior to discharge. DuoNebs, hypertonic saline for airway clearance. c/w steroid inhalation. Continue Anoro. Pulm evaled, f/u CT chest in 2-3 months. PFT as OP, f/u pulm on DC. s/p 7 day course of antibiotic. Loose stool 2/2 atb use: C. difficile negative, still getting loose stool likely 2/2 gi bleed, pedialyte. Acute kidney injury over CKD III: prerenal 2/2 voluminous loose stool around 6 to 6, on iv albumin, labs in am, c/w oral intake and pedialyte solution. hold lasix for now. Improving. Concern for GI bleed: Dark stool in the evening of 05/23, hemoglobin drop to 8 from about 11-12 prior hemoglobins. GI consulted. Appreciate eval. still w/ loose melanotic stool. c/w clears, npo midnight for GI eval in AM. Continue to hold aspirin and heparin for now. H&H in the evening or as needed. Right heart failure: Elevated troponin: High sensitive troponin elevated to 51.2, next troponin was 50.3.; Likely due to demand ischemia Patient denies chest pain. EKG - normal sinus rhythm with nonspecific ST or T wave changes and PVC Echocardiogram reviewed; EF of 55 to 60%, right ventricular moderately dilated with severe pulmonary hypertension. CT angio done to rule out PE BNP elevated will get cardiology and line maintainer evaluation regarding evaluation of right heart failure. -- they evaled, appreciate recs. will c/w use of low dose lasix for -- currently on hold due to recent ALINA and GI bleed, resume when able. Elevated liver enzymes: Possible causes include drug induced cholestasis (? Antibiotic, methimazole), right heart failure Right upper quadrant ultrasound unremarkable. Prior attending discussed with Dr. Belcher from endocrinology. It is unlikely that methimazole is causing elevated liver enzymes since patient is taking it since November. He recommends that methimazole can be kept on hold for 7 days; restart at 10 mg twice daily. Outpatient follow-up would be set up for the patient. Monitor LFTs daily until normal/stable for few days. 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 Free T4 within normal limits. TSH low. hypertensionnot on any medication. Continue to monitor; expect to improve after completion of steroid therapy. 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 Avoid nephrotoxic agents. BMP daily DVT Px: Hep SC Dispo: pt/ot. Cm to assist. pending hemoglobin stabilization/gi clearance. Admission and Anticipated Discharge Date Admission Date: May 16, 2023 Subjective Patient seen and examined at bedside as a follow-up of acute hypoxemic respiratory failure, pneumonia, elevated liver enzymes. Patient was lying in bed, on 2 L nasal cannula oxygen, NAD, had loose watery black stool in AM per RN, his hemoglobin downtrending. on clears, npo midnight. Continue to hold aspirin and heparin for now, f/u w/ HnH very closely. Patient continues denies problem w/ his breathing and shortness of breath. Physical Exam Physical Exam: GENERAL: Alert and oriented x3. NAD, on 2 L NC O2. HEENT: No pallor, no icterus. Pupils equal, round and reactive to light. Oral mucosa moist. NECK: No JVD, no neck masses. HEART: S1 and S2 heard. Regular rate and rhythm. No murmur, no gallop. RESPIRATORY SYSTEM: Normal AP diameter. No accessory muscle use. No wheezing, no crackles. ABDOMEN: Soft, bowel sounds present, nontender, no distention. CENTRAL NERVOUS SYSTEM: No facial droop. Speech is clear. Obeys simple commands. Moves extremities. EXTREMITIES: trace ble edema, no erythema seen. Results & Data Results & Data Vital Signs (Past 12 Hours) Vital Signs Temp Pulse Resp BP BP Pulse Ox O2 Del Method 05/25/23 15:06 36.6 C 81 18 145/76 H 92 Nasal Cannula 05/25/23 08:00 Nasal Cannula 05/25/23 07:48 78 18 92 Nasal Cannula 05/25/23 07:31 36.6 C 66 16 123/61 94 Nasal Cannula O2 Flow Rate 05/25/23 15:06 2 05/25/23 08:00 2 05/25/23 07:48 1.5 05/25/23 07:31 2
--- NOTE | 2023-05-25 15:58 | CT Scan Report ---
CT SCAN OF THE ABDOMEN AND PELVIS WITHOUT IV CONTRAST CLINICAL HISTORY: Drop in hemoglobin. Clinical concern for retroperitoneal hemorrhage. COMPARISON STUDY: Abdominal ultrasound dated 05/18/2023. TECHNIQUE: CT scan of the abdomen and pelvis is performed from the lung bases to the proximal femora. Images are reviewed in the axial, sagittal, and coronal planes. IV contrast was not administered for this examination. A dose lowering technique was utilized adhering to the principles of ALARA. The ex amination is compromised by motion artifact, as well as by streak artifact from the arms which could not be elevated above the abdomen. CT DOSE: 1551.42 mGy.cm FINDINGS: Lung bases: The heart is enlarged and without pericardial effusion. The coronary arteries are densely calcified. There is diminished attenuation of the cardiac blood pool is compared to the myocardium s uggesting anemia. Emphysematous change is noted. There are trace pleural effusions. There is bibasila r scarring/atelectasis. 3.3 cm focus of round atelectasis of the left lung base is unchanged. Liver: The unenhanced liver is normal in size, contour, and attenuation. There is no intrahepatic dilma iary ductal dilatation. Scattered hepatic cysts measure up to 13 mm. Gallbladder: Unremarkable. Spleen: Normal in size and attenuation. Pancreas: The unenhanced pancreas is moderately atrophic and grossly unremarkable. Adrenal glands: Unremarkable. Kidneys: The unenhanced kidneys demonstrate mild cortical atrophy and are without hydronephrosis. The re is a 5 mm nonobstructing calculus in the left lower pole. No right renal calculi are identified an d no ureteral stone is seen identified. Bilateral renal cysts measuring up to 5.2 cm. Abdominal vasculature: The abdominal aorta is normal in course and caliber noting moderate to advance d atherosclerotic calcification. Bowel: There is moderate colonic fecal retention. No bowel obstruction is seen. A right inguinal star ia contains nonobstructed small bowel loops. The appendix is well-visualized and normal. Peritoneum/retroperitoneal: There is no retroperitoneal hemorrhage. There is no intraperitoneal free air or abdominal ascites. There is a fat-containing umbilical hernia. Lymphadenopathy: None. Pelvic viscera: The prostate gland is markedly enlarged and heterogeneous. The bladder wall is thicke georgina/trabeculated indicating chronic outlet obstruction. There are tiny bladder diverticula. A right i nguinal hernia contains nonobstructed bowel. Skeletal structures: The skeletal structures are osteopenic. There is moderate lumbosacral spondylosi s. No lytic or blastic lesions are seen. IMPRESSION: 1. No acute infectious or inflammatory findings are identified in the abdomen or pelvis. 2. There is no retroperitoneal hemorrhage identified as clinically queried. 3. Cardiomegaly and trace pleural effusions with evidence of anemia. 4. A large right inguinal hernia contains nonobstructed small bowel. 5. Left-sided nephrolithiasis. 6. Marked prostatomegaly with evidence of chronic bladder outlet obstruction. 7. Additional findings as above. ACT 112: Negative or not required by law. Electronically signed by: Steven Bañuelos M.D. 05/25/2023 3:56 PM
[2023-05-25 20:48] LABS: Hematocrit (blood only) 24.7 % (42.0-52.0); Hemoglobin 8.2 g/dl (14.0-18.0)
[2023-05-25] MEDS: GABAPENTIN 300 MG CAP PO SCH (21:05)
[2023-05-25] MEDS: ACETAMINOPHEN 325 MG TAB PO PRN (21:06)
[2023-05-26 06:42] LABS: Hematocrit (blood only) 21.8 % (42.0-52.0); Hemoglobin 7.3 g/dl (14.0-18.0); Mean Corpuscular Hemoglobin 30.9 pg (25.0-34.0); Mean Corpuscular Hgb Conc 33.5 g/dL (32.0-36.0); Mean Corpuscular Volume 92.4 fL (80.0-100.0); Mean Platelet Volume 9.9 fL (9.4-12.4); Platelet Count 255 K/uL (130-400); RDW Coefficient of Variation 13.6 % (11.5-14.5); RDW Standard Deviation 45.2 fL (36.4-46.3); Red Blood Count 2.36 M/uL (4.70-6.10); White Blood Count 4.78 K/ul (4.8-10.8)
[2023-05-26 07:08] LABS: Albumin Globulin Ratio 2.6 (0.9-2); Albumin Level 3.7 gm/dl (3.4-5.0); BUN Creatinine Ratio 13.6 (10-20); Bilirubin,Total 0.9 mg/dl (0.2-1.0); Calcium 8.3 mg/dl (8.6-10.3); Creatinine Clr Calc Pharmacy 48.1 ml/min; Est GFR (African American) 65.3 ml/min; Est GFR (Non-African American) 56.3 ml/min; Globulin 1.4 gm/dl (2.5-4.0); Magnesium 2.1 mg/dl (1.7-2.4); Phosphorus 3.4 mg/dl (2.5-4.9); Potassium 3.9 mmol/L (3.5-5.1); Total Protein 5.1 gm/dl (6.0-8.3)
[2023-05-26] MEDS: SODIUM CHLOR 7% 4 ML NEB NEB SCH ×2 (07:33→19:30)
[2023-05-26] MEDS: ALBUT/IPRATROP 3MG/0.5MG NEB 3 ML VIAL NEB SCH ×2 (07:33→19:29)
[2023-05-26] MEDS: ADVANCED PROBIOTIC 1250 MG CAPSULE PO SCH (08:02)
[2023-05-26] MEDS: UMECLIDINIUM/VILANTEROL 62.5/25MCG 7 PUFFS/INHALER INH SCH (08:03)
[2023-05-26] MEDS: CHOLECALCIFEROL 1,000 UNITS 25 MCG TAB PO SCH (08:03)
[2023-05-26] MEDS: FLUTICASONE FUROATE 100MCG 14 PUFFS/INHALER INH SCH (08:03)
[2023-05-26] MEDS: PANTOprazole 40 MG in SYRINGE 0 ML IV SCH ×2 (08:48→20:15)
--- NOTE | 2023-05-26 12:20 | Anesthesiology Progress Note ---
Date of Service May 26, 2023 Anesthesia Post Procedure Vital Signs Vital Signs: Temp Pulse Resp BP Pulse Ox O2 Del Method O2 Flow Rate 05/26/23 08:07 Nasal Cannula 2 05/26/23 07:53 82 18 91 Nasal Cannula 3 05/26/23 07:37 36.6 C 79 18 129/70 90 Nasal Cannula 3 05/25/23 20:00 Nasal Cannula 3 05/25/23 22:55 37.0 C 73 17 116/63 99 Nasal Cannula 3 05/25/23 20:21 82 20 88 L Nasal Cannula 3 05/25/23 15:06 36.6 C 81 18 145/76 H 92 Nasal Cannula 2 Pain Intensity Head: Pain Intensity: 6 Transfer of Care Handoff Completed per policy Notes Mental Status: alert / awake / arousable and participated in evaluation Nausea / Vomiting: adequately controlled Pain: adequately controlled Airway Patency, RR, SpO2: stable & adequate BP & HR: stable & adequate Hydration State: stable & adequate Anesthetic Complications: no major complications apparent and Pt Satisfied with anesthetic care
--- NOTE | 2023-05-26 12:29 | History & Physical Report ---
Date of Service May 26, 2023 Assessment & Plan (1) GI bleeding: Plan: Pleasant man with melena. Procedure and risks discussed. He agrees Admission and Anticipated Discharge Date Admission Date: May 16, 2023 History of Present Illness Chief Complaint: melena Primary Care Provider: Corby Zuniga, 82 year old with melena and drop in H/H. Allergies Allergy/AdvReac Type Severity Reaction Status Date / Time No Known Allergies Allergy Verified 05/16/23 08:44 Home Medications Medication Instructions Recorded Confirmed Type acetaminophen 325 mg tablet 325 mg PO Q6H PRN fever or pain 08/23/19 05/16/23 History (Tylenol) cholecalciferol (vitamin D3) 25 2,000 units PO QAM 08/23/19 05/16/23 History mcg (1,000 unit) tablet aspirin 81 mg tablet,delayed 81 mg PO QAM 12/17/19 05/16/23 History release methimazole 10 mg tablet 10 mg PO DAILY #30 tabs 04/16/23 05/16/23 Rx gabapentin 600 mg tablet 600 mg PO HS 05/16/23 05/16/23 History Past Med/Surg History Medical History Community acquired pneumonia Former smoker Lymphoma 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 Polyp of colon RSV infection Surgical History H/O varicose vein ligation Family History Father , Age 91 Renal failure Mother Breast cancer Denies family history of Ovarian cancer Prostate cancer Myocardial infarction Colorectal cancer Social History Smoking Status: Former smoker Tobacco Type: Cigarettes Age Quit Using Tobacco: 61; Second Hand Exposure: No; Do You Dip or Chew Tobacco: No; Hx Alcohol Use: Yes Alcohol type: beer Hx Substance Use: No Preferred Language: Vietnamese Communication Ability: Effective Visual Impairment: No Limitations Hearing Ability: Hard of Hearing Ecclesiastical Worker Required: No Beliefs That Will Affect Care: None marital status: Current Living Situation: Spouse current occupational status: retired How many Children do You have: 1 Feels Safe at Home: Yes Childhood Exposure to Second-Hand Smoke: No Diet: regular caffeine: Yes Dental Care, Regularly: No Physical Activity Frequency: Does not Exercise Seatbelt Use: always Sunscreen Use: No Assistive Devices: Cane Review of Systems All systems reviewed & are unremarkable except as noted in HPI & below Physical Exam Constitutional: WD/WN, vitals as above Respiratory: normal respiratory effort, lungs clear to auscultation Cardiovascular: RRR, no murmur, no edema Gastrointestinal (Abdomen): normal bowel sounds, soft, nontender, no hepatosplenomegaly ASA Classification ASA [id number] Results & Data Vital Signs (Past 12 Hours) Vital Signs Temp Pulse Resp BP Pulse Ox O2 Del Method O2 Flow Rate 05/26/23 12:20 37 C 64 16 163/88 H 93 Nasal Cannula 2 05/26/23 08:07 Nasal Cannula 2 05/26/23 07:53 82 18 91 Nasal Cannula 3 05/26/23 07:37 36.6 C 79 18 129/70 90 Nasal Cannula 3 Code Status & VTE Plan VTE Prophylaxis Plan VTE Prophylaxis will be ordered: Yes
--- NOTE | 2023-05-26 12:34 | Anesthesiology Consultation ---
Date of Service May 26, 2023 History Surgery Operation Date: 05/26/23 16:30 Proposed Procedures p Esophagogastroduodenoscopy Dr. Liseth Childers Jr, MD Height/Weight Height: 5 ft 10 in Weight: 83.7 kg Allergies Allergy/AdvReac Type Severity Reaction Status Date / Time No Known Allergies Allergy Verified 05/16/23 08:44 Medications Home Medications Medication Instructions Recorded Confirmed Last Taken acetaminophen 325 mg tablet 325 mg PO Q6H PRN fever or pain 08/23/19 05/16/23 Unknown (Tylenol) cholecalciferol (vitamin D3) 25 2,000 units PO QAM 08/23/19 05/16/23 05/15/23 mcg (1,000 unit) tablet aspirin 81 mg tablet,delayed 81 mg PO QAM 12/17/19 05/16/23 05/15/23 release methimazole 10 mg tablet 10 mg PO DAILY #30 tabs 04/16/23 05/16/23 05/15/23 gabapentin 600 mg tablet 600 mg PO HS 05/16/23 05/16/23 05/15/23 Active Medications Generic Name Dose Route Start Last Admin Trade Name Freq PRN Reason Stop Dose Admin Acetaminophen 650 mg 05/16/23 12:38 05/25/23 21:06 Acetaminophen 325 Mg Tab PO 06/15/23 12:37 650 mg Q4H PRN Administration Pain or Fever Albuterol 3 ml 05/17/23 19:00 05/26/23 07:33 Albut/Ipratrop 3mg/0.5mg Neb 3 Ml Vial NEB 06/16/23 18:59 3 ml BIDR TONI Administration Protocol Aspirin 81 mg 05/17/23 09:00 05/23/23 07:52 Aspirin 81 Mg Ectab PO 06/16/23 08:59 81 mg QAM TONI Administration Fluticasone Furoate 1 puffs 05/22/23 09:00 05/26/23 08:03 Fluticasone Furoate 100mcg 14 Puffs/Inhaler INH 06/21/23 08:59 1 puffs DAILY TONI Administration Furosemide 20 mg 05/19/23 09:00 05/22/23 07:41 Furosemide 20 Mg Tab PO 06/18/23 08:59 20 mg QAM TONI Administration Gabapentin 300 mg 05/23/23 21:00 05/25/23 21:05 Gabapentin 300 Mg Cap PO 06/22/23 20:59 300 mg HS TONI Administration Heparin Sodium (Porcine) 5,000 units 05/16/23 14:00 05/23/23 14:47 Heparin Sod 5,000 Unit/0.5 Ml Vial SQ 06/15/23 13:59 Not Given Q8 TONI Pantoprazole Sodium 40 mg/ 10 mls @ 5 mls/min 05/24/23 09:00 05/26/23 08:48 Syringe IV 06/23/23 08:59 5 mls/min BID TONI Administration Sodium Chloride 1,000 mls @ 45 mls/hr 05/24/23 08:15 05/26/23 12:13 Nss 1000ml IV 05/26/23 16:23 0 mls/hr .[id number] TONI Infusion Lactobacillus Acidophilus 2 cap 05/20/23 09:00 05/26/23 08:02 Advanced Probiotic 1250 Mg Capsule PO 06/19/23 08:59 2 cap DAILY TONI Administration Methimazole 10 mg 05/17/23 09:00 05/18/23 09:39 Methimazole 5 Mg Tablet PO 06/16/23 08:59 10 mg DAILY TONI Administration Sodium Chloride 4 ml 05/16/23 19:00 05/26/23 07:33 Sodium Chlor 7% 4 Ml Neb NEB 06/15/23 18:59 4 ml BIDR TONI Administration Umeclidinium/Vilanterol 1 puffs 05/18/23 15:45 05/26/23 08:03 Umeclidinium/Vilanterol 62.5/25mcg 7 Puffs/Inhaler INH 06/17/23 15:44 1 puffs DAILY TONI Administration Vitamin D 2,000 units 05/17/23 09:00 05/26/23 08:03 Cholecalciferol 1,000 Units 25 Mcg Tab PO 06/16/23 08:59 2,000 units QAM TONI Administration NPO Date Last Intake of Fluids: 05/26/23 Time Last Intake of Fluids: 08:00 Date Last Intake of Solids: 05/25/23 Time Last Intake of Solids: 18:00 Past Medical History Medical History Community acquired pneumonia Former smoker Lymphoma 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 Polyp of colon RSV infection Past Family History Family History Father , Age 91 Renal failure Mother Breast cancer Denies family history of Ovarian cancer Prostate cancer Myocardial infarction Colorectal cancer Past Surgical History Surgical History H/O varicose vein ligation Social History Smoking Status: Former smoker tobacco type: cigarettes Do You Dip or Chew Tobacco: No Hx Alcohol Use: Yes Alcohol type: beer alcohol intake frequency: 0-2 drinks per day Hx Substance Use: No Physical Exam Vital Signs Last Vital Signs Temp 37 C 05/26/23 12:20 Pulse 64 05/26/23 12:20 Resp 16 05/26/23 12:20 BP 163/88 H 05/26/23 12:20 Pulse Ox 93 05/26/23 12:20 O2 Del Method Nasal Cannula 05/26/23 12:20 O2 Flow Rate 2 05/26/23 12:20 Testing Laboratory Results 05/26/23 06:09 05/26/23 06:09 PT 10.9 Seconds (9.0-12.0) 05/16/23 08:01 INR 1.0 (0.9-1.1) 05/16/23 08:01 APTT 31.3 Seconds (21.0-31.0) H 05/23/23 02:23 Urine Color Yellow 05/23/23 12:30 Urine Appearance Clear (Clear) 05/23/23 12:30 Urine pH 5.0 (4.5-7.5) 05/23/23 12:30 Ur Specific [place] 1.019 (1.000-1.030) 05/23/23 12:30 Urine Protein Negative (Negative) 05/23/23 12:30 Urine Glucose (UA) Negative (Negative) 05/23/23 12:30 Urine Ketones Negative (Negative) 05/23/23 12:30 Urine Nitrite Negative (Negative) 05/23/23 12:30 Ur Leukocyte Esterase Negative (Negative) 05/23/23 12:30 Urine WBC (Auto) 1-5 /hpf (0-5) 05/16/23 20:57 Urine RBC (Auto) 5-10 /hpf (0-4) H 05/16/23 20:57 U Hyaline Cast (Auto) 1-5 /lpf (0-5) 05/16/23 20:57 U Epithel Cells (Auto) 5-10 /lpf (0-5) H 05/16/23 20:57 Urine Bacteria (Auto) Negative (Negative) 05/16/23 20:57 05/16/23 08:01 Aerobic Blood Culture - Final Blood No growth in Aerobic bottle after 5 days. Anaerobic Blood Culture - Final No growth in Anaerobic bottle after 5 days. 05/16/23 08:19 Aerobic Blood Culture - Final Blood No growth in Aerobic bottle after 5 days. Anaerobic Blood Culture - Final No growth in Anaerobic bottle after 5 days. 05/16/23 Unknown Gram Stain - Final Sputum, Expectorated Sputum Culture - Final Streptococcus pneumoniae
--- NOTE | 2023-05-26 12:52 | GI REPORT ---
Patient Name: Sohan Gaytan Procedure Date: 05/26/2023 12:32 PM Date of : 1940 Admit Type: Inpatient Age: 82 Gender: Male Attending MD: Linh Childers MD, Procedure: Upper GI endoscopy Providers: Linh Childers MD Referring MD: Amy Quintana Indications: Melena Medicines: Propofol per Anesthesia Complications: No immediate complications. Estimated Blood Loss: Estimated blood loss: none. Procedure: Pre-Anesthesia Assessment: - Prior to the procedure, a History and Physical was performed, and patient medications and allergies were reviewed. The patient's tolerance of previous anesthesia was also reviewed. The risks and benefits of the procedure and the sedation options and risks were discussed with the patient. All questions were answered, and informed consent was obtained. Prior Anticoagulants: The patient has taken no anticoagulant or antiplatelet agents. ASA Grade Assessment: III - A patient with severe systemic disease. After reviewing the risks and benefits, the patient was deemed in satisfactory condition to undergo the procedure. After obtaining informed consent, the endoscope was passed under direct vision. Throughout the procedure, the patient's blood pressure, pulse, and oxygen saturations were monitored continuously. The Endoscope was introduced through the mouth, and advanced to the second part of duodenum. The upper GI endoscopy was accomplished without difficulty. The patient tolerated the procedure well. Findings: The esophagus was normal. One non-bleeding cratered gastric ulcer with no stigmata of bleeding was found in the gastric antrum. The lesion was 3 mm in largest dimension. The exam of the stomach was otherwise normal. The examined duodenum was normal. Impression: - Normal esophagus. - Non-bleeding gastric ulcer with no stigmata of bleeding. - Normal examined duodenum. - No specimens collected. Recommendation: - Patient has a contact number available for emergencies. The signs and symptoms of potential delayed complications were discussed with the patient. Return to normal activities tomorrow. Written discharge instructions were provided to the patient. - Resume previous diet. - Continue present medications. Linh Childers MD 05/26/2023 12:51:32 PM Note Initiated On: 05/26/2023 12:32 PM Number of Addenda: 0 I attest to the content of the Intraoperative Record and orders documented therein, exceptions below {[id number]}
[2023-05-26] MEDS ORDERED: LIDOCAINE 2% 2 ML VIAL/AMP(20MG/ML) INFIL ONE (13:46)
[2023-05-26] MEDS ORDERED: PROPOFOL IV EMULSION 10 MG/ML 20 ML VIAL IV ONE (13:46)
--- NOTE | 2023-05-26 17:42 | Hospitalist Progress Note ---
Date of Service May 26, 2023 Assessment & Plan (1) Acute respiratory failure with hypoxia: Plan Acute hypoxemic respiratory failure: Pneumonia: Patient presents to the ED with 3-day history of cough, generalized weakness and fever; found to be hypoxic 84% on RA. Leucocytosis + & procal elevated. Sputum culture showedStreptococcus pneumoniae CT angio chest reviewed; no PE. Increasing 4 cm subpleural airway opacity within right lower lobe since March 2023. Speech evaluation done; recommend regular diet. Video swallow study and recommendation appreciated. Cefepime and doxycycline initially, then, Cefepime was switched to Rocephin; later on - on amoxicillin -- completed 7 day course 05/23. Continue supplemental oxygen to keep saturation above 92%; wean off as tolerated. Does not use supplemental oxygen at home. Will need 2 step test p rior to discharge. DuoNebs, hypertonic saline for airway clearance. c/w steroid inhalation. Continue Anoro. Pulm evaled, f/u CT chest in 2-3 months. PFT as OP, f/u pulm on DC. Appreciate pulmonary input and recommendation Clinically much better as of today We will up to steps O2 saturation test prior to discharge tomorrow Loose stool 2/2 atb use: C. difficile negative, still getting loose stool likely 2/2 gi bleed, pedialyte. Acute kidney injury over CKD III: prerenal 2/2 voluminous loose stool around 6/ to 6/2, on iv albumin, labs in am, c/w oral intake and pedialyte solution. hold lasix for now. Improving. Acute GI bleed-likely upper Concern for GI bleed: Dark stool in the evening of 05/23, hemoglobin drop to 8 from about 11-12 prior hemoglobins. GI consulted. Appreciate eval. still w/ loose melanotic stool. c/w clears, npo midnight for GI eval in AM. Continue to hold aspirin and heparin for now. H&H in the evening or as needed. Hemoglobin remains low at 7.3 as of today Appreciate GI input and recommendation Status post EGD-noted to have nonbleeding gastric ulcer Advised to avoid any NSAIDs and continue PPI Right heart failure: Elevated troponin: High sensitive troponin elevated to 51.2, next troponin was 50.3.; Likely due to demand ischemia Patient denies chest pain. EKG - normal sinus rhythm with nonspecific ST or T wave changes and PVC Echocardiogram reviewed; EF of 55 to 60%, right ventricular moderately dilated with severe pulmonary hypertension. CT angio done to rule out PE BNP elevated Appreciate cardiology input and recommendation Elevated liver enzymes: Possible causes include drug induced cholestasis (? Antibiotic, methimazole), right heart failure Right upper quadrant ultrasound unremarkable. Prior attending discussed with Dr. Belcher from endocrinology. It is unlikely that methimazole is causing elevated liver enzymes since patient is taking it since November. He recommends that methimazole can be kept on hold for 7 days; restart at 10 mg twice daily. Outpatient follow-up would be set up for the patient. Monitor LFTs daily until normal/stable for few days. 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 Free T4 within normal limits. TSH low. hypertensionnot on any medication. Continue to monitor; expect to improve after completion of steroid therapy. 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 Avoid nephrotoxic agents. BMP daily DVT Px: Hep SC Dispo: pt/ot. Cm to assist. pending hemoglobin stabilization/gi clearance. Likely discharge tomorrow Admission and Anticipated Discharge Date Admission Date: May 16, 2023 Subjective 05/26/2023 The patient was seen and examined in medical floor He is a status post EGD and noted to have a nonbleeding gastric ulcer Denies any more shortness of breath, cough, fever and or chills No abdominal pain,nausea and or vomiting Review of Systems Review of Systems: All systems reviewed and are unremarkable as noted below Physical Exam Physical Exam: Lying in bed comfortably Constitutional: well developed and well nourished; not ill appearing Eyes: PERRL, conjunctivae normal, anicteric sclerae ENMT: external ear and nose normal, oropharynx normal Neck: trachea midline, no thyromegaly Respiratory: no respiratory distress Auscultation: lungs clear to auscultation bilaterally Cardiovascular: Rate/Rhythm: regular rate and regular rhythm; not tachycardic Heart Sounds: normal S1 and normal S2; no murmur Extremities: no edema Gastrointestinal (Abdomen): Inspection/Auscultation: normal bowel sounds; abdomen not distended Percussion/Palpation: abdomen soft; abdomen nontender Musculoskeletal: No acute arthritis involving any joint Neurologic: normal touch/pain/proprioception and moves all extremities; no focal motor deficits Psychiatric: A+Ox3, euthymic affect Lymphatic: no cervical or axillary lymphadenopathy Results & Data Results & Data Vital Signs (Past 12 Hours) Vital Signs Temp Pulse Resp BP Pulse Ox O2 Del Method O2 Flow Rate 05/26/23 15:08 36.9 C 87 18 145/74 H 94 Nasal Cannula 2 05/26/23 13:22 73 16 136/73 97 Nasal Cannula 4 05/26/23 13:07 71 16 132/65 97 Nasal Cannula 2 05/26/23 12:53 74 16 99/55 L 96 Nasal Cannula 2 05/26/23 12:20 37 C 64 16 163/88 H 93 Nasal Cannula 2 05/26/23 08:07 Nasal Cannula 2 05/26/23 07:53 82 18 91 Nasal Cannula 3 05/26/23 07:37 36.6 C 79 18 129/70 90 Nasal Cannula 3 Laboratory Results Short CBC 05/25/23 05/26/23 Range/Units 20:33 06:09 WBC 4.78 L (4.8-10.8) K/ul Hgb 8.2 L 7.3 L (14.0-18.0) g/dl Hct 24.7 L 21.8 L (42.0-52.0) % Plt Count 255 (130-400) K/uL BMP 05/26/23 06:09 Sodium 139 Potassium 3.9 Chloride 106 Carbon Dioxide 29 BUN 16 Creatinine 1.18 Glucose 80 Calcium 8.3 L Liver Function 05/26/23 Range/Units 06:09 Total Bilirubin 0.9 (0.2-1.0) mg/dl AST 16 (13-39) U/L ALT 36 (7-52) U/L Alkaline Phosphatase 41 (34-104) U/L Albumin 3.7 (3.4-5.0) gm/dl Medications Administered Current Inpatient Medications Acetaminophen (Acetaminophen 325 Mg Tab) 650 mg PO Q4H PRN PRN Reason: Pain or Fever Stop: 06/15/23 12:37 Last Admin: 05/25/23 21:06 Dose: 650 mg Al Hydrox/Mg Hydrox/Simethicone (Aluminum/Magnesium Susp 30 Ml Udc) 15 ml PO Q4H PRN PRN Reason: Dyspepsia Stop: 06/15/23 12:37 Albuterol (Albut/Ipratrop 3mg/0.5mg Neb 3 Ml Vial) 3 ml NEB BIDR [facility]; Protocol Stop: 06/16/23 18:59 Last Admin: 05/26/23 07:33 Dose: 3 ml Aspirin (Aspirin 81 Mg Ectab) 81 mg PO QAM [facility] Stop: 06/16/23 08:59 Last Admin: 05/23/23 07:52 Dose: 81 mg Fluticasone Furoate (Fluticasone Furoate 100mcg 14 Puffs/Inhaler) 1 puffs INH DAILY [facility] Stop: 06/21/23 08:59 Last Admin: 05/26/23 08:03 Dose: 1 puffs Furosemide (Furosemide 20 Mg Tab) 20 mg PO QAM [facility] Stop: 06/18/23 08:59 Last Admin: 05/22/23 07:41 Dose: 20 mg Gabapentin (Gabapentin 300 Mg Cap) 300 mg PO HS [facility] Stop: 06/22/23 20:59 Last Admin: 05/25/23 21:05 Dose: 300 mg Heparin Sodium (Porcine) (Heparin Sod 5,000 Unit/0.5 Ml Vial) 5,000 units SQ Q8 [facility] Stop: 06/15/23 13:59 Last Admin: 05/23/23 14:47 Dose: Not Given Pantoprazole Sodium 40 mg/ (Syringe) 10 mls @ 5 mls/min IV BID [facility] Stop: 06/23/23 08:59 Last Admin: 05/26/23 08:48 Dose: 5 mls/min Lactobacillus Acidophilus (Advanced Probiotic 1250 Mg Capsule) 2 cap PO DAILY [facility] Stop: 06/19/23 08:59 Last Admin: 05/26/23 08:02 Dose: 2 cap Magnesium Hydroxide (Magnesium Hydroxide Susp 30 Ml Udc) 30 ml PO Q12H PRN PRN Reason: Constipation Stop: 06/15/23 12:37 Methimazole (Methimazole 5 Mg Tablet) 10 mg PO DAILY [facility] Stop: 06/16/23 08:59 Last Admin: 05/18/23 09:39 Dose: 10 mg Nitroglycerin (Nitroglycerin Sl 0.4 Mg/Tab Tab) 0.4 mg SL Q5M PRN PRN Reason: Chest Pain Stop: 06/15/23 12:37 Polyethylene Glycol (Polyethylene (Miralax) 17 Gm Pack) 17 gm PO DAILY PRN PRN Reason: Constipation Stop: 06/15/23 12:37 Sodium Chloride (Sodium Chlor 7% 4 Ml Neb) 4 ml NEB BIDR [facility] Stop: 06/15/23 18:59 Last Admin: 05/26/23 07:33 Dose: 4 ml Umeclidinium/Vilanterol (Umeclidinium/Vilanterol 62.5/25mcg 7 Puffs/Inhaler) 1 puffs INH DAILY [facility] Stop: 06/17/23 15:44 Last Admin: 05/26/23 08:03 Dose: 1 puffs Vitamin D (Cholecalciferol 1,000 Units 25 Mcg Tab) 2,000 units PO QAM [facility] Stop: 06/16/23 08:59 Last Admin: 05/26/23 08:03 Dose: 2,000 units
[2023-05-26] MEDS: GABAPENTIN 300 MG CAP PO SCH (20:15)
[2023-05-26] MEDS: ACETAMINOPHEN 325 MG TAB PO PRN (21:26)
[2023-05-27 06:51] LABS: Basophils # (auto) 0.05 K/uL (0-0.2); Basophils % (auto) 0.9 %; Eosinophils # (auto) 0.23 K/uL (0-0.50); Hematocrit (blood only) 25.6 % (42.0-52.0); Hemoglobin 8.5 g/dl (14.0-18.0); Immature Granulocytes # (auto) 0.03 K/uL (0.01-0.20); Immature Granulocytes % (auto) 0.5 %; Lymphocytes # (auto) 0.82 K/uL (1.2-3.4); Lymphocytes % (auto) 14.4 %; Mean Corpuscular Hgb Conc 33.2 g/dL (32.0-36.0); Mean Corpuscular Volume 93.4 fL (80.0-100.0); Mean Platelet Volume 9.9 fL (9.4-12.4); Monocytes # (auto) 0.94 K/uL (0.11-0.59); Monocytes % (auto) 16.5 %; Neutrophils # (auto) 3.64 K/uL (1.40-6.50); Neutrophils % (auto) 63.7 %; Platelet Count 287 K/uL (130-400); Red Blood Count 2.74 M/uL (4.70-6.10); White Blood Count 5.71 K/ul (4.8-10.8)
[2023-05-27 07:19] LABS: Alanine Aminotransferase 39 U/L (7-52); Albumin Globulin Ratio 2.2 (0.9-2); Albumin Level 3.9 gm/dl (3.4-5.0); Alkaline Phosphatase 55 U/L (34-104); Anion Gap 6 (3-11); BUN Creatinine Ratio 15.6 (10-20); Bilirubin,Total 0.7 mg/dl (0.2-1.0); Blood Urea Nitrogen 19 mg/dl (6-23); Calcium 8.5 mg/dl (8.6-10.3); Carbon Dioxide 26 mmol/L (21-32); Chloride 106 mmol/L (98-107); Creatinine Clr Calc Pharmacy 46.5 ml/min; Est GFR (African American) 62.7 ml/min; Est GFR (Non-African American) 54.1 ml/min; Globulin 1.8 gm/dl (2.5-4.0); Glucose 82 mg/dl (70-99(Fasting)); Sodium 138 mmol/L (136-145); Total Protein 5.7 gm/dl (6.0-8.3)
[2023-05-27] MEDS: ALBUT/IPRATROP 3MG/0.5MG NEB 3 ML VIAL NEB SCH (07:24)
[2023-05-27] MEDS: SODIUM CHLOR 7% 4 ML NEB NEB SCH (07:24)
[2023-05-27 08:15] LABS: Potassium 4.1 mmol/L (3.5-5.1)
[2023-05-27] MEDS: ADVANCED PROBIOTIC 1250 MG CAPSULE PO SCH (08:25)
[2023-05-27] MEDS: FLUTICASONE FUROATE 100MCG 14 PUFFS/INHALER INH SCH (08:25)
[2023-05-27] MEDS: CHOLECALCIFEROL 1,000 UNITS 25 MCG TAB PO SCH (08:25)
[2023-05-27] MEDS: UMECLIDINIUM/VILANTEROL 62.5/25MCG 7 PUFFS/INHALER INH SCH (08:26)
[2023-05-27] MEDS: PANTOprazole 40 MG in SYRINGE 0 ML IV SCH (08:26)
--- NOTE | 2023-05-27 09:00 | Gastroenterology Progress Note ---
Supervising physican's note Case discussed with Melanie Hawk NP, records reviewed, patient seen He is doing well. No further bleeding. H/H are stable Seems to have settled down. No further intervention planned. Will sign off. Please reconsult as needed. Linh Childers Jr, MD, [facility] [place] Date of Service May 27, 2023 Assessment & Plan (1) GI bleeding: Plan: Melena: EGD 05/26/2023 with 1 nonbleeding cratered gastric ulcer. H/H stable this morning 8.5/25.6. Patient tolerating regular diet. Recommend indefinite PPI due to concurrent aspirin therapy. Case reviewed with Dr. Childers. Please refer to supervising physician addendum for further recommendations. I have spent 15 minutes of discrete time performing the activities of this visit which include but are not limited to review of the medical record, obtaining a history, physical exam, and entering information in the electronic record. Admission and Anticipated Discharge Date Admission Date: May 16, 2023 Subjective Patient awake and alert sitting at his bedside chair eating breakfast tray. He has no voiced GI complaints this morning. States he is enjoying his regular diet this morning. Review of Systems Review of Systems: All systems reviewed & are unremarkable except as noted in HPI & below Physical Exam Gastrointestinal (Abdomen): normal bowel sounds, soft, nontender, no hepatosplenomegaly Results & Data Vital Signs (Past 12 Hours) Vital Signs Temp Pulse Resp BP Pulse Ox O2 Del Method O2 Flow Rate 05/27/23 08:05 Nasal Cannula 2 05/27/23 07:51 36.7 C 84 19 158/63 H 96 Nasal Cannula 3 05/27/23 07:24 75 18 93 Nasal Cannula 3 05/26/23 21:34 37.5 C 88 16 125/70 92 Nasal Cannula 2 Laboratory Results Laboratory Results - last 24 hr 05/27/23 05/27/23 05/27/23 06:12 06:12 07:37 WBC 5.71 RBC 2.74 L Hgb 8.5 L Hct 25.6 L MCV 93.4 MCH 31.0 MCHC 33.2 RDW Std Deviation 47.0 H RDW Coeff of Chantal 14.0 Plt Count 287 MPV 9.9 Immature Gran % (Auto) 0.5 Neut % (Auto) 63.7 Lymph % (Auto) 14.4 [place] % (Auto) 16.5 Eos % (Auto) 4.0 Baso % (Auto) 0.9 Neut # (Auto) 3.64 Lymph # (Auto) 0.82 L [place] # (Auto) 0.94 H Eos # (Auto) 0.23 Baso # (Auto) 0.05 Immature Gran # (Auto) 0.03 Sodium 138 Potassium TNP 4.1 Chloride 106 Carbon Dioxide 26 Anion Gap 6 BUN 19 Creatinine 1.22 Est Cr Clr Drug Dosing 46.5 Est GFR ( Amer) 62.7 Est GFR (Non-Af Amer) 54.1 BUN/Creatinine Ratio 15.6 Glucose 82 Calcium 8.5 L Total Bilirubin 0.7 AST TNP 19 ALT 39 Alkaline Phosphatase 55 Total Protein 5.7 L Albumin 3.9 Globulin 1.8 L Albumin/Globulin Ratio 2.2 H Diagnostic Findings 05/26/2023: EGD notes are reviewed performed due to history of melena which demonstrated normal esophagus. There was 1 nonbleeding cratered gastric ulcer with no stigmata of bleeding found in the gastric antrum which was 3 mm in largest diameter. Exam of the stomach otherwise normal. Examined duodenum was normal. There were no specimens collected.
--- NOTE | 2023-05-27 11:47 | Hospitalist Progress Note ---
Date of Service May 27, 2023 Assessment & Plan (1) Acute respiratory failure with hypoxia: Plan Acute hypoxemic respiratory failure: Pneumonia: Patient presents to the ED with 3-day history of cough, generalized weakness and fever; found to be hypoxic 84% on RA. Leucocytosis + & procal elevated. Sputum culture showedStreptococcus pneumoniae CT angio chest reviewed; no PE. Increasing 4 cm subpleural airway opacity within right lower lobe since March 2023. Speech evaluation done; recommend regular diet. Video swallow study and recommendation appreciated. Cefepime and doxycycline initially, then, Cefepime was switched to Rocephin; later on - on amoxicillin -- completed 7 day course 05/23. Continue supplemental oxygen to keep saturation above 92%; wean off as tolerated. Does not use supplemental oxygen at home. Will need 2 step test p rior to discharge. DuoNebs, hypertonic saline for airway clearance. c/w steroid inhalation. Continue Anoro. Pulm evaled, f/u CT chest in 2-3 months. PFT as OP, f/u pulm on DC. Appreciate pulmonary input and recommendation Clinically much better as of today and denies any significant symptoms She will go to [facility] this afternoon and will not require any 2 steps O2 saturation test before discharge Loose stool 2/2 atb use: C. difficile negative, still getting loose stool likely 2/2 gi bleed, pedialyte. Acute kidney injury over CKD III: prerenal 2/2 voluminous loose stool around 6/ to 6, on iv albumin, labs in am, c/w oral intake and pedialyte solution. hold lasix for now. Improving. No more diarrhea Acute GI bleed-likely upper Concern for GI bleed: Dark stool in the evening of 05/23, hemoglobin drop to 8 from about 11-12 prior hemoglobins. GI consulted. Appreciate eval. still w/ loose melanotic stool. c/w clears, npo midnight for GI eval in AM. Continue to hold aspirin and heparin for now. H&H in the evening or as needed. Hemoglobin remains low at 7.3 as of today Appreciate GI input and recommendation Status post EGD-noted to have nonbleeding gastric ulcer Advised to avoid any NSAIDs and continue PPI Hemoglobin stable at 8.5 We will continue PPI as advised Right heart failure: Elevated troponin: High sensitive troponin elevated to 51.2, next troponin was 50.3.; Likely due to demand ischemia Patient denies chest pain. EKG - normal sinus rhythm with nonspecific ST or T wave changes and PVC Echocardiogram reviewed; EF of 55 to 60%, right ventricular moderately dilated with severe pulmonary hypertension. CT angio done to rule out PE BNP elevated Appreciate cardiology input and recommendation No cardiac symptoms Elevated liver enzymes: Possible causes include drug induced cholestasis (? Antibiotic, methimazole), right heart failure Right upper quadrant ultrasound unremarkable. Prior attending discussed with Dr. Belcher from endocrinology. It is unlikely that methimazole is causing elevated liver enzymes since patient is taking it since November. He recommends that methimazole can be kept on hold for 7 days; restart at 10 mg twice daily. Outpatient follow-up would be set up for the patient. Monitor LFTs daily until normal/stable for few days. 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 Free T4 within normal limits. TSH low. hypertensionnot on any medication. Continue to monitor; expect to improve after completion of steroid therapy. 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 Avoid nephrotoxic agents. BMP daily DVT Px: Hep SC Dispo: pt/ot. Cm to assist. pending hemoglobin stabilization/gi clearance. He will be going to [facility] this afternoon Admission and Anticipated Discharge Date Admission Date: May 16, 2023 Subjective 05/26/2023 The patient was seen and examined in medical floor He is a status post EGD and noted to have a nonbleeding gastric ulcer Denies any more shortness of breath, cough, fever and or chills No abdominal pain,nausea and or vomiting 05/27/2023 The patient was seen and examined in medical floor He has been stable and denies any symptoms No abdominal pain, nausea or vomiting and no shortness of breath He has been tolerating diet and has been ambulating Review of Systems Review of Systems: All systems reviewed and are unremarkable as noted below Physical Exam Physical Exam: Lying in bed comfortably Constitutional: well developed and well nourished; not ill appearing Eyes: PERRL, conjunctivae normal, anicteric sclerae ENMT: external ear and nose normal, oropharynx normal Neck: trachea midline, no thyromegaly Respiratory: no respiratory distress Auscultation: lungs clear to auscultation bilaterally Cardiovascular: Rate/Rhythm: regular rate and regular rhythm; not tachycardic Heart Sounds: normal S1 and normal S2; no murmur Extremities: no edema Gastrointestinal (Abdomen): Inspection/Auscultation: normal bowel sounds; abdomen not distended Percussion/Palpation: abdomen soft; abdomen nontender Musculoskeletal: No acute arthritis involving any of the joint Neurologic: normal touch/pain/proprioception and moves all extremities; no focal motor deficits Psychiatric: A+Ox3, euthymic affect Lymphatic: no cervical or axillary lymphadenopathy Results & Data Results & Data Vital Signs (Past 12 Hours) Vital Signs Temp Pulse Resp BP Pulse Ox O2 Del Method O2 Flow Rate 05/27/23 08:05 Nasal Cannula 2 05/27/23 07:51 36.7 C 84 19 158/63 H 96 Nasal Cannula 3 05/27/23 07:24 75 18 93 Nasal Cannula 3 Laboratory Results Short CBC 05/27/23 Range/Units 06:12 WBC 5.71 (4.8-10.8) K/ul Hgb 8.5 L (14.0-18.0) g/dl Hct 25.6 L (42.0-52.0) % Plt Count 287 (130-400) K/uL BMP 05/27/23 05/27/23 06:12 07:37 Sodium 138 Potassium TNP 4.1 Chloride 106 Carbon Dioxide 26 BUN 19 Creatinine 1.22 Glucose 82 Calcium 8.5 L Liver Function 05/27/23 05/27/23 Range/Units 06:12 07:37 Total Bilirubin 0.7 (0.2-1.0) mg/dl AST TNP 19 ALT 39 (7-52) U/L Alkaline Phosphatase 55 (34-104) U/L Albumin 3.9 (3.4-5.0) gm/dl Medications Administered Current Inpatient Medications Acetaminophen (Acetaminophen 325 Mg Tab) 650 mg PO Q4H PRN PRN Reason: Pain or Fever Stop: 06/15/23 12:37 Last Admin: 05/26/23 21:26 Dose: 650 mg Al Hydrox/Mg Hydrox/Simethicone (Aluminum/Magnesium Susp 30 Ml Udc) 15 ml PO Q4H PRN PRN Reason: Dyspepsia Stop: 06/15/23 12:37 Albuterol (Albut/Ipratrop 3mg/0.5mg Neb 3 Ml Vial) 3 ml NEB BIDR [facility]; Protocol Stop: 06/16/23 18:59 Last Admin: 05/27/23 07:24 Dose: 3 ml Aspirin (Aspirin 81 Mg Ectab) 81 mg PO QAM [facility] Stop: 06/16/23 08:59 Last Admin: 05/23/23 07:52 Dose: 81 mg Fluticasone Furoate (Fluticasone Furoate 100mcg 14 Puffs/Inhaler) 1 puffs INH DAILY [facility] Stop: 06/21/23 08:59 Last Admin: 05/27/23 08:25 Dose: 1 puffs Furosemide (Furosemide 20 Mg Tab) 20 mg PO QAM [facility] Stop: 06/18/23 08:59 Last Admin: 05/22/23 07:41 Dose: 20 mg Gabapentin (Gabapentin 300 Mg Cap) 300 mg PO HS [facility] Stop: 06/22/23 20:59 Last Admin: 05/26/23 20:15 Dose: 300 mg Heparin Sodium (Porcine) (Heparin Sod 5,000 Unit/0.5 Ml Vial) 5,000 units SQ Q8 [facility] Stop: 06/15/23 13:59 Last Admin: 05/23/23 14:47 Dose: Not Given Pantoprazole Sodium 40 mg/ (Syringe) 10 mls @ 5 mls/min IV BID [facility] Stop: 06/23/23 08:59 Last Admin: 05/27/23 08:26 Dose: 5 mls/min Lactobacillus Acidophilus (Advanced Probiotic 1250 Mg Capsule) 2 cap PO DAILY [facility] Stop: 06/19/23 08:59 Last Admin: 05/27/23 08:25 Dose: 2 cap Magnesium Hydroxide (Magnesium Hydroxide Susp 30 Ml Udc) 30 ml PO Q12H PRN PRN Reason: Constipation Stop: 06/15/23 12:37 Last Admin: 05/27/23 09:52 Dose: 30 ml Methimazole (Methimazole 5 Mg Tablet) 10 mg PO DAILY [facility] Stop: 06/16/23 08:59 Last Admin: 05/18/23 09:39 Dose: 10 mg Nitroglycerin (Nitroglycerin Sl 0.4 Mg/Tab Tab) 0.4 mg SL Q5M PRN PRN Reason: Chest Pain Stop: 06/15/23 12:37 Polyethylene Glycol (Polyethylene (Miralax) 17 Gm Pack) 17 gm PO DAILY PRN PRN Reason: Constipation Stop: 06/15/23 12:37 Sodium Chloride (Sodium Chlor 7% 4 Ml Neb) 4 ml NEB BIDR [facility] Stop: 06/15/23 18:59 Last Admin: 05/27/23 07:24 Dose: 4 ml Umeclidinium/Vilanterol (Umeclidinium/Vilanterol 62.5/25mcg 7 Puffs/Inhaler) 1 puffs INH DAILY [facility] Stop: 06/17/23 15:44 Last Admin: 05/27/23 08:26 Dose: 1 puffs Vitamin D (Cholecalciferol 1,000 Units 25 Mcg Tab) 2,000 units PO QAM [facility] Stop: 06/16/23 08:59 Last Admin: 05/27/23 08:25 Dose: 2,000 units
--- NOTE | 2023-05-27 17:04 | Discharge Summary ---
Date of Service May 27, 2023 Admission HPI Per Admitting Provider 82 year old with melena and drop in H/H. Chief Complaint: Cough, generalized weakness and fever for 3 days Primary Care Provider: Corby Zuniga DO History obtained from chart review and interview with the patient. 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 Patient reports that he started to feel unwell 3 days before with onset of cough with mucopurulent sputum; no blood seen. He also reported a gradual onset of generalized weakness in those 3 days. Patient woke up at 1 AM in the morning; sat on the chair and slid down due to feeling weak and was unable to get up till EMS arrived. He reports having fever; did not measure temperature at home. He denies headache, visual changes, chest pain or shortness of breath. He denies any sick contacts or recent travel. Patient lives with his ; is independent of all his ADLs. Quit smoking in 2000. On presentation to the ED, he was hypoxic with SPO2 of 84% in room air. He was afebrile and normotensive. Labs remarkable for elevated WBC count and mild hyponatremia. Chest x-ray shows increasing infiltrate in right middle lobe. Patient was given DuoNebs, dexamethasone 10 mg, 1 L normal saline, cefepime and doxycycline. Supplemental oxygen was provided with nasal cannula. Patient was then admitted to PCU. Admission Exam Per Admitting Provider Physical Exam: Constitutional: Alert orient x3; appears tired. Respiratory: Bilateral wheeze heard. Decreased breath sound on right middle lobe. Cardiovascular: RRR, no murmur, no edema Vessels: no JVD or carotid bruit Chest: normal inspection of chest Abdomen: normal bowel sounds, soft, nontender, no hepatosplenomegaly Musculoskeletal: no cyanosis or clubbing, extremities motor strength 5/5 Skin: no rashes, warm and dry normal turgor Neurologic: PERRL, EOMI, accommodation nl, no face palsy, no dysarthria CN's II- XI intact bilaterally and moves all extremities Psychiatric: A+Ox3, euthymic affect Principal Diagnosis Acute respiratory failure with hypoxia, pneumococcal pneumonia, upper GI bleed due to gastric ulcer, stable right heart failure Discharge Exam Lying in bed comfortably Constitutional well developed and well nourished; not ill appearing Eyes PERRL, conjunctivae normal, anicteric sclerae ENMT external ear and nose normal, oropharynx normal Neck trachea midline, no thyromegaly Respiratory no respiratory distress Auscultation: lungs clear to auscultation bilaterally Cardiovascular Rate/Rhythm: regular rate and regular rhythm; not tachycardic Heart Sounds: normal S1 and normal S2; no murmur Extremities: no edema Gastrointestinal (Abdomen) Inspection/Auscultation: normal bowel sounds; abdomen not distended Percussion/Palpation: abdomen soft; abdomen nontender Neurologic normal touch/pain/proprioception and moves all extremities; no focal motor deficits Psychiatric A+Ox3, euthymic affect Lymphatic no cervical or axillary lymphadenopathy Discharge Data Allergies Allergy/AdvReac Type Severity Reaction Status Date / Time No Known Allergies Allergy Verified 05/16/23 08:44 Consultations 05/16/23 08:43 ED Decision to Admit Stat 05/18/23 12:36 Consult Cardiology Routine 05/18/23 12:37 Consult Pulmonology Routine 05/24/23 08:04 Consult Gastroenterology Routine Procedures Performed Operation Date: 05/26/23 16:30 Actual Procedures p Esophagogastroduodenoscopy - Linh Childers Jr, MD Ordered Studies 05/18/23 07:27 liver Routine 05/18/23 10:50 CT angio chest PE protocol Urgent 05/18/23 13:00 FL video swallow Routine 05/25/23 13:28 CT Abd and Pelvis [CT abd pelvis wo con] Routine Hospital Course (1) Acute respiratory failure with hypoxia: Plan Acute hypoxemic respiratory failure: Pneumonia: Patient presents to the ED with 3-day history of cough, generalized weakness and fever; found to be hypoxic 84% on RA. Leucocytosis + & procal elevated. Sputum culture showedStreptococcus pneumoniae CT angio chest reviewed; no PE. Increasing 4 cm subpleural airway opacity within right lower lobe since March 2023. Speech evaluation done; recommend regular diet. Video swallow study and recommendation appreciated. Cefepime and doxycycline initially, then, Cefepime was switched to Rocephin; later on - on amoxicillin -- completed 7 day course 05/23. Continue supplemental oxygen to keep saturation above 92%; wean off as tolerated. Does not use supplemental oxygen at home. Will need 2 step test p rior to discharge. DuoNebs, hypertonic saline for airway clearance. c/w steroid inhalation. Continue Anoro. Pulm evaled, f/u CT chest in 2-3 months. PFT as OP, f/u pulm on DC. Appreciate pulmonary input and recommendation Clinically much better as of today and denies any significant symptoms She will go to [facility] this afternoon and will not require any 2 steps O2 saturation test before discharge Loose stool 2/2 atb use: C. difficile negative, still getting loose stool likely 2/2 gi bleed, pedialyte. Acute kidney injury over CKD III: prerenal 2/2 voluminous loose stool around 04/22 to 04/23, on iv albumin, labs in am, c/w oral intake and pedialyte solution. hold lasix for now. Improving. No more diarrhea Acute GI bleed-likely upper Concern for GI bleed: Dark stool in the evening of 05/23, hemoglobin drop to 8 from about 11-12 prior hemoglobins. GI consulted. Appreciate eval. still w/ loose melanotic stool. c/w clears, npo midnight for GI eval in AM. Continue to hold aspirin and heparin for now. H&H in the evening or as needed. Hemoglobin remains low at 7.3 as of today Appreciate GI input and recommendation Status post EGD-noted to have nonbleeding gastric ulcer Advised to avoid any NSAIDs and continue PPI Hemoglobin stable at 8.5 We will continue PPI as advised Right heart failure: Elevated troponin: High sensitive troponin elevated to 51.2, next troponin was 50.3.; Likely due to demand ischemia Patient denies chest pain. EKG - normal sinus rhythm with nonspecific ST or T wave changes and PVC Echocardiogram reviewed; EF of 55 to 60%, right ventricular moderately dilated with severe pulmonary hypertension. CT angio done to rule out PE BNP elevated Appreciate cardiology input and recommendation No cardiac symptoms Elevated liver enzymes: Possible causes include drug induced cholestasis (? Antibiotic, methimazole), right heart failure Right upper quadrant ultrasound unremarkable. Prior attending discussed with Dr. Belcher from endocrinology. It is unlikely that methimazole is causing elevated liver enzymes since patient is taking it since November. He recommends that methimazole can be kept on hold for 7 days; restart at 10 mg twice daily. Outpatient follow-up would be set up for the patient. Monitor LFTs daily until normal/stable for few days. 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 Free T4 within normal limits. TSH low. hypertensionnot on any medication. Continue to monitor; expect to improve after completion of steroid therapy. 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 Avoid nephrotoxic agents. BMP daily DVT Px: Hep SC Dispo: pt/ot. Cm to assist. pending hemoglobin stabilization/gi clearance. He will be going to [facility] this afternoon Total Time Total Time Spent Total Time Spent (In Minutes): 35 minutes Discharge Plan Discharge Items Patient Disposition: Transfer Inpatient Rehab Fac Reason For Visit: PNEUMONIA Discharge Diagnosis: Acute respiratory failure with hypoxia, pneumococcal pneumonia, upper GI bleed due to gastric ulcer, stable right heart failure Activity: As commented below Activity Comment: Continue PT, OT Non-emergency contact: Primary Care Provider Call non-emergency contact if: you have any medication questions and your symptoms worsen Follow-up/Referrals: Corby Zuniga, DO [Primary Care Provider] - (Please make an appointment with your PCP within 7 days following discharge from the facility) Diet: Heart Healthy Addtl Attending Provider Instructions: Please take precautions to avoid falls Take your medications as advised Please have follow-up CT chest in 2 to 3 months, PFT as an outpatient and foll ow-up with technology resource teacher Pending Studies at Discharge: No Stand-Alone Forms: My [facility] Skilled Items Patient informed of condition?: Yes DNR: No Discharge Level of Care: Acute rehab Communicable Disease: No Discharge Prognosis: Stable Lines: None Urinary Catheter: No Medications and DC Order Prescriptions: New ipratropium-albuterol 0.5 mg-3 mg(2.5 mg base)/3 mL Solution For Nebulization 3 ml NEB BIDR Qty: 30 0RF Anoro Ellipta 62.5-25 mcg/actuation Blister With Device 1 ea inhalation DAILY Qty: 14 0RF Arnuity Ellipta 100 mcg/actuation Blister With Device 1 inh inhalation DAILY Qty: 14 0RF pantoprazole [Protonix] 40 mg tablet,delayed release (DR/EC) 40 mg PO BID Qty: 60 0RF furosemide 20 mg Tablet 20 mg PO QAM Qty: 30 0RF Continued methimazole 10 mg tablet 10 mg PO DAILY Qty: 30 2RF acetaminophen [Tylenol] 325 mg tablet 325 mg PO Q6H PRN (Reason: fever or pain) cholecalciferol (vitamin D3) 1,000 unit (25 mcg) tablet 2,000 units PO QAM aspirin 81 mg Tablet,Delayed Release (Dr/Ec) 81 mg PO QAM gabapentin 600 mg tablet 600 mg PO HS Discharge Orders: Discharge Order (Routine); Ordered 05/27/23 Ordered By: Amy Quintana Admission Data Admit Date/Time: 05/16/23 09:21 Attending Provider: Amy Quintana Admit Provider: Matty Conrad Primary Care Provider: Corby Zuniga Other Providers: [facility], ; [facility] ; Matty Conrad ; Juliano Figueroa ; Tam Vidal ; Hu West ; Sohan Polo ; Samy Crockett ; Pablo Quinn Jr ; Lino Moreland ; Lynn Rose ; Caroline Tinsley ; Kings Webb ; Samuel Muniz ; Liang Milton ; Maryann John ; Janiya Bullard ; Alex Farrell Henry C. ; Sohan Lazo V. ; Maximus Garrido ; Linh Childers Jr ; Alma Rosa Doan Other Interventions: Discharge Summary Assessment (RN) Last Done: 05/27/23 12:58
== END 2023-05-27 15:15 | DRG 193 ==
LOC: ED 07:22 → SUATTDRO 09:21 → 2S 09:21 → 3W 05-21 17:34

== ENCOUNTER 2023-10-20 18:46 | Observation (INO) ==
[2023-10-20 19:36] LABS: BUN Creatinine Ratio 12.6 (10-20); Calcium 8.4 mg/dl (8.6-10.3); Creatinine Clr Calc Pharmacy 36.2 ml/min; Est GFR (African American) 42.6 ml/min; Est GFR (Non-African American) 36.8 ml/min; Potassium 4.5 mmol/L (3.5-5.1)
[2023-10-20 19:39] LABS: Basophils # (auto) 0.06 K/uL (0.00-0.20); Basophils % (auto) 1.2 %; Eosinophils # (auto) 0.12 K/uL (0.00-0.50); Eosinophils % (auto) 2.3 %; Hematocrit (blood only) 39.4 % (42.0-52.0); Hemoglobin 13.2 g/dl (14.0-18.0); Immature Granulocytes # (auto) 0.01 K/uL (0.01-0.20); Immature Granulocytes % (auto) 0.2 %; Lymphocytes # (auto) 0.99 K/uL (1.20-3.40); Lymphocytes % (auto) 19.1 %; Mean Corpuscular Hemoglobin 28.3 pg (25.0-34.0); Mean Corpuscular Hgb Conc 33.5 g/dL (32.0-36.0); Mean Corpuscular Volume 84.5 fL (80.0-100.0); Mean Platelet Volume 10.2 fL (9.4-12.4); Monocytes % (auto) 9.7 %; Neutrophils % (auto) 67.5 %; Platelet Count 223 K/uL (130-400); RDW Coefficient of Variation 16.8 % (11.5-14.5); Red Blood Count 4.66 M/uL (4.70-6.10); White Blood Count 5.18 K/ul (4.8-10.8)
[2023-10-20 19:47] LABS: Partial Thromboplastin Ratio 0.9; Partial Thromboplastin Time 25.4 Seconds (21.0-31.0); Prothrombin Time 10.8 Seconds (9.0-12.0)
[2023-10-20 19:50] LABS: Base Excess VBG -1.7 mEq/L; HCO3 VBG 25 mmol/L; Oxygen Saturation VBG < 60.0 %; PCO2 VBG 50 mmHg (38-50); PO2 VBG 29 mmHg; pH VBG 7.31 (7.36-7.41)
--- NOTE | 2023-10-20 20:07 | CT Scan Report ---
Exam(s): CT HEAD Without Contrast EXAM: CT Head Without Intravenous Contrast CLINICAL HISTORY: Reason for exam: syncope. TECHNIQUE: Axial computed tomography images of the head/brain without intravenous contrast. CTDI is 36.31 mGy and DLP is 625.8 mGy-cm. Automated exposure control was utilized for the study. A dose lowering technique was utilized adhering to the principles of ALARA. COMPARISON: No relevant prior studies available. FINDINGS: Brain: No intracranial hemorrhage, mass-effect, or cerebral edema. Global parenchymal atrophy. Ventricles: Unremarkable. Bones/joints: Unremarkable. No fracture. Soft tissues: Unremarkable. Sinuses: No acute sinusitis. Mastoid air cells: Unremarkable as visualized. IMPRESSION: No acute abnormality. Electronically signed by: Chase King MD 10/20/23 20:06 PM
--- NOTE | 2023-10-20 22:25 | History & Physical Report ---
Date of Service October 20, 2023 Assessment & Plan (1) Syncope: Plan: 83 year old male admitted for syncopal episode. -Syncopal episode x1 earlier today. -Labs unremarkable for any changes from patient's baseline. Troponin negative. -CT head negative for any acute abnormality. -CXR with mild increase in perihilar opacity at the R lung, not as likely infective. -Patient does have history of venous insufficiency/stasis which he attributes to his syncopal episodes. -He appears euvolemic on exam so less likely related to history of R heart failure and pulmonary hypertension. -Has history of transient cardiomyopathy with recent echo from normal EF. -Given past history of cardiomyopathy will admit to telemetry and obtain repeat echocardiogram. (2) Chronic kidney disease with active medical management without dialysis, stage 3 (moderate): Plan: -Chronic, recent creatinine baseline around 1.6-1.8. -Creatinine 1.6 this admission, at baseline. Continue to monitor. (3) Anemia: Plan: -Chronic, hemoglobin baseline around 13. -Hemoglobin this admission 13.2. -No stool irregularities per patient, low concern for blood loss. -Continue to monitor with AM CBC. (4) Emphysema/COPD: Plan: -Chronic, no pulmonary symptoms, CXR without overt pneumonia. -Continue home inhalers. (5) Pulmonary hypertension: Plan: -Chronic, follows with pulmonology. Managed with Lasix outpatient, recommended against vasodilators. -Continue home Lasix 20mg qAM. (6) Right heart failure: Plan: -Chronic, Same plan as above. (7) Hyperthyroidism: Plan: -Chronic, continue methimazole. (8) HTN (hypertension): Plan: -Chronic, continue to monitor. (9) Hypoxia: Plan: -History of nocturnal hypoxia with use of 2L O2 at home. Continue while inpatient. Plan F/E/N/GI: T2DM, Full liquid since patient forgot dentures at home. DVT Prophylaxis: Heparin SQ 5K q12h Code status: Full code, discussed with patient. Dispo: Telemetry. Ho Ho D.O. PGY3 Family and Community Medicine at [facility]. History of Present Illness Chief Complaint: Syncope Primary Care Provider: Corby Zuniga DO Sohan is an 83 year old male w/ PmHx emphysema/COPD, cardiomyopathy, HTN, hyperthyroidism, hx of GI bleed, pulmonary HTN, R heart failure, nocturnal hypoxia with use of 2L O2, anemia coming into the ER after syncopal episode. Patient states that earlier this evening he was standing for a good amount of time making burgers and eggs for dinner when he started to feel his legs get heavy. He states that he has a history of poor circulation in his legs and if he stands for longs periods of time without moving then he tends to get this heavy leg sensation and pass out. Patient states that once he felt this heavy leg sensation he knew he was close to passing out and he yelled for his who was outside or in another room a few times. He sat down at his kitchen table and passed out while sitting. He did not hit his head and did not move. He is unaware of how long he was passed out for. The ambulance was called and he was brought here for evaluation. He denies any recent cold symptoms, fevers, chills, shortness of breath, chest pain, diarrhea, nausea, vomiting, constipation, abdominal pain, congestion. He had felt fine otherwise. He denies any smoking currently, last smoked in early and has quit since then, he drinks 2 glasses of beer a day. In the ER Hgb 13.2, Na 132, Creat 1.67, otherwise unremarkable blood work. CXR with mild increase in perihilar opacity at the R lung. Head CT negative for any acute abnormality. Allergies Allergy/AdvReac Type Severity Reaction Status Date / Time No Known Allergies Allergy Verified 10/20/23 20:00 Home Medications Medication Instructions Recorded Confirmed Type cholecalciferol (vitamin D3) 25 2,000 units PO QAM 08/23/19 10/20/23 History mcg (1,000 unit) tablet aspirin 81 mg tablet,delayed 81 mg PO QAM 12/17/19 10/20/23 History release gabapentin 300 mg capsule 300 mg PO BID PRN pain #60 caps 06/30/23 10/20/23 Rx Portable Oxygen #1 ea 07/01/23 10/20/23 Rx Wheeled Walker #1 ea 07/01/23 10/20/23 Rx methimazole 10 mg tablet 10 mg PO DAILY #90 tabs 07/01/23 10/20/23 Rx pantoprazole 40 mg tablet,delayed 40 mg PO BID 07/09/23 10/20/23 History release (Protonix) tamsulosin 0.4 mg capsule 0.4 mg PO DAILY #90 caps 07/12/23 10/20/23 Rx furosemide 20 mg tablet 20 mg PO QAM #90 tabs 07/15/23 10/20/23 Rx ipratropium 0.5 mg-albuterol 3 mg 3 ml NEB BIDR #90 mL 07/15/23 10/20/23 Rx (2.5 mg base)/3 mL nebulization soln fluticasone furoate 100 1 inh inhalation DAILY #30 ea 08/20/23 10/20/23 Rx mcg/actuation blister powder for inhalation (Arnuity Ellipta) acetaminophen 500 mg tablet 500 mg PO Q6H PRN Pain 10/20/23 10/20/23 History (Tylenol Extra Strength) Past Med/Surg History Medical History RSV infection Community acquired pneumonia Polyp of colon Former smoker Lymphoma 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 Surgical History H/O varicose vein ligation Family History Father , Age 91 Renal failure Mother Breast cancer Denies family history of Ovarian cancer Prostate cancer Myocardial infarction Colorectal cancer Social History Smoking Status: Former smoker Tobacco Type: Cigarettes Age Started Using Tobacco: 18; Age Quit Using Tobacco: 61; Second Hand Exposure: No; Do You Dip or Chew Tobacco: No; Hx Alcohol Use: Yes Alcohol type: beer Hx Substance Use: No Preferred Language: Slovenian Communication Ability: Effective Visual Impairment: No Limitations Hearing Ability: Hard of Hearing Supervisor Salvage Required: No Beliefs That Will Affect Care: None marital status: Current Living Situation: Spouse current occupational status: retired How many Children do You have: 1 Feels Safe at Home: Yes Childhood Exposure to Second-Hand Smoke: No Diet: regular caffeine: Yes Dental Care, Regularly: No Physical Activity Frequency: Does not Exercise Seatbelt Use: always Sunscreen Use: No Assistive Devices: Cane and Walker Review of Systems Review of Systems: As per HPI. Physical Exam Constitutional: WD/WN, vitals as above Eyes: PERRL, conjunctivae normal, anicteric sclerae Respiratory: normal respiratory effort, lungs clear to auscultation Cardiovascular: S1 and S2, irregularly regular rhythm, occasional missed beat, no murmurs. No edema. Gastrointestinal (Abdomen): normal bowel sounds, soft, nontender, no hepatosplenomegaly Musculoskeletal: no cyanosis or clubbing, extremities motor strength 5/5 Skin: no rashes, warm and dry Psychiatric: A+Ox3, euthymic affect Results & Data Results & Data Vital Signs (Past 12 Hours) Vital Signs Temp Pulse Resp BP Pulse Ox O2 Del Method 10/20/23 22:16 72 10/20/23 22:00 66 12 154/91 H 94 Room Air 10/20/23 21:30 70 12 146/90 H 92 Room Air 10/20/23 21:00 61 16 143/87 H 92 Room Air 10/20/23 20:30 70 13 139/91 93 Room Air 10/20/23 20:18 83 17 133/91 92 Room Air 10/20/23 19:30 71 15 92 Room Air 10/20/23 18:56 67 10/20/23 18:54 Room Air 10/20/23 18:54 36.6 C 64 18 133/78 94 Room Air 10/20/23 18:52 65 18 133/78 94 Room Air Supervising Physician Co-Signing Physician Notes Patient seen and examined chart reviewed, case discussed with Dr. Ho and I agree with the assessment and plan as above Resident Activity Tracking Resident Involvement: Resident Care Provided Care Provided: Adult Hospital Medicine (1) Syncope Syncope type: unspecified Qualified Code(s): R55 - Syncope and collapse (8) HTN (hypertension) Hypertension type: unspecified Qualified Code(s): I10 - Essential (primary) hypertension
--- NOTE | 2023-10-20 23:36 | Emergency Department Note ---
History of Present Illness General Chief complaint: Syncope Time Seen by Provider: 10/20/23 18:57 Source: patient and EMS History of Present Illness Provider complaint: Unresponsive 83-year-old male presents emergency department after being found unresponsive. Patient was brought in via EMS. Spoke with EMS director social welfare and the director social welfare reports that the patient reported that he was cooking dinner and sat in her chair and then became unresponsive. EMS was called at 1745. On arrival EMS reported that the patient was unresponsive and diaphoretic and cold. They moved him into the ambulance and then on moving into the ambulance the patient became alert and oriented x 3. Patient states he was cooking a sausage but does not report any smoking elation and EMS reports that there is no smoke inhalation in the house. Patient is currently reporting no chest pain difficulty breathing nausea vomiting diarrhea or headache. Home Medications Medication Instructions Recorded Confirmed Type cholecalciferol (vitamin D3) 25 2,000 units PO QAM 08/23/19 10/20/23 History mcg (1,000 unit) tablet aspirin 81 mg tablet,delayed 81 mg PO QAM 12/17/19 10/20/23 History release gabapentin 300 mg capsule 300 mg PO BID PRN pain #60 caps 06/30/23 10/20/23 Rx Portable Oxygen #1 ea 07/01/23 10/20/23 Rx Wheeled Walker #1 ea 07/01/23 10/20/23 Rx methimazole 10 mg tablet 10 mg PO DAILY #90 tabs 07/01/23 10/20/23 Rx pantoprazole 40 mg tablet,delayed 40 mg PO BID 07/09/23 10/20/23 History release (Protonix) tamsulosin 0.4 mg capsule 0.4 mg PO DAILY #90 caps 07/12/23 10/20/23 Rx furosemide 20 mg tablet 20 mg PO QAM #90 tabs 07/15/23 10/20/23 Rx ipratropium 0.5 mg-albuterol 3 mg 3 ml NEB BIDR #90 mL 07/15/23 10/20/23 Rx (2.5 mg base)/3 mL nebulization soln fluticasone furoate 100 1 inh inhalation DAILY #30 ea 08/20/23 10/20/23 Rx mcg/actuation blister powder for inhalation (Arnuity Ellipta) acetaminophen 500 mg tablet 500 mg PO Q6H PRN Pain 10/20/23 10/20/23 History (Tylenol Extra Strength) Allergies Allergy/AdvReac Type Severity Reaction Status Date / Time No Known Allergies Allergy Verified 10/20/23 20:00 Past Med/Surg History Medical History RSV infection Community acquired pneumonia Polyp of colon Former smoker Lymphoma 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 Surgical History H/O varicose vein ligation Family History Father , Age 91 Renal failure Mother Breast cancer Denies family history of Ovarian cancer Prostate cancer Myocardial infarction Colorectal cancer Social History Smoking Status: Former smoker Tobacco Type: Cigarettes Age Started Using Tobacco: 18; Age Quit Using Tobacco: 61; Second Hand Exposure: No; Do You Dip or Chew Tobacco: No; Hx Alcohol Use: Yes Alcohol type: beer Hx Substance Use: No Preferred Language: Barbadian Communication Ability: Effective Visual Impairment: No Limitations Hearing Ability: Hard of Hearing Core Machine Tender Required: No Beliefs That Will Affect Care: None marital status: Current Living Situation: Spouse current occupational status: retired How many Children do You have: 1 Feels Safe at Home: Yes Childhood Exposure to Second-Hand Smoke: No Diet: regular caffeine: Yes Dental Care, Regularly: No Physical Activity Frequency: Does not Exercise Seatbelt Use: always Sunscreen Use: No Assistive Devices: Cane Physical Exam Vital Signs Vital Signs - 24 hr 10/20/23 18:52 10/20/23 18:54 10/20/23 18:54 Temperature 36.6 C Temperature Source Oral Pulse Rate 65 64 Respiratory Rate 18 18 Blood Pressure 133/78 133/78 Blood Pressure Mean 96 96 Pulse Oximetry 94 94 Oxygen Delivery Method Room Air Room Air Room Air Sepsis Recent Fever Within 48 Hours No Sepsis New/Unexplained Change in Mental Status No Sepsis Action Taken by Nursing No Action Required 10/20/23 18:56 10/20/23 19:30 10/20/23 20:18 Temperature Temperature Source Pulse Rate 67 71 83 Respiratory Rate 15 17 Blood Pressure 133/91 Blood Pressure Mean 105 Pulse Oximetry 92 92 Oxygen Delivery Method Room Air Room Air Sepsis Recent Fever Within 48 Hours Sepsis New/Unexplained Change in Mental Status Sepsis Action Taken by Nursing 10/20/23 20:30 10/20/23 21:00 10/20/23 21:30 Temperature Temperature Source Pulse Rate 70 61 70 Respiratory Rate 13 16 12 Blood Pressure 139/91 143/87 H 146/90 H Blood Pressure Mean 107 105 108 Pulse Oximetry 93 92 92 Oxygen Delivery Method Room Air Room Air Room Air Sepsis Recent Fever Within 48 Hours Sepsis New/Unexplained Change in Mental Status Sepsis Action Taken by Nursing 10/20/23 22:00 10/20/23 22:16 10/20/23 22:30 Temperature Temperature Source Pulse Rate 66 72 79 Respiratory Rate 12 15 Blood Pressure 154/91 H 147/102 H Blood Pressure Mean 112 117 Pulse Oximetry 94 91 Oxygen Delivery Method Room Air Room Air Sepsis Recent Fever Within 48 Hours Sepsis New/Unexplained Change in Mental Status Sepsis Action Taken by Nursing Physical Exam GENERAL: He is oriented to person, place, and time. He appears well-developed and well-nourished. He does not appear distressed. HENT: Exam performed. - Head: Normocephalic and atraumatic. - Right Ear: External ear normal. No mastoid erythema - Left Ear: External ear normal. No mastoid erythema - Mouth/Throat: The oropharynx is clear and moist. No trismus in the jaw. No dental abscesses or uvula swelling. No oropharyngeal exudate or tonsillar abscesses. EYES: Conjunctivae and EOM are normal. Pupils are equal, round, and reactive to light. Right eye exhibits no discharge. Left eye exhibits no discharge. No scleral icterus. NECK: Normal range of motion. Neck supple. No JVD present. CV: Normal rate, regular rhythm, normal heart sounds and intact distal pulses. There is no peripheral edema. Palpable radial pulses bue. PULM/CHEST: Effort normal and breath sounds normal. No respiratory distress. No stridor. He has no wheezes. He has no rales. ABD: The abdomen is soft. There is no tenderness. There is no rebound, no guarding MUSC/SKEL: Normal range of motion. There is no peripheral edema, tenderness or deformity. LYMPH: No cervical adenopathy. NEURO: He is alert and oriented to person, place, and time. He has normal strength. No cranial nerve deficit or sensory deficit. GCS eye subscore is 4. GCS verbal subscore is 5. GCS motor subscore is 6. Cerebellar tests wnl. SKIN: Skin is warm and dry. He is not diaphoretic. PSYCH: He has a normal mood and affect. Behavior is normal. Judgment and thought content normal. Course Course 1856: The patient was evaluated in room C11. A complete history and physical exam was performed Medical Decision Making Laboratory Data Attestation: I reviewed the patient's lab results. 10/20/23 19:03 10/20/23 19:03 Lab Results 10/20/23 10/20/23 10/20/23 Range/Units 19:03 19:36 19:37 WBC 5.18 (4.8-10.8) K/ul RBC 4.66 L (4.70-6.10) M/uL Hgb 13.2 L (14.0-18.0) g/dl Hct 39.4 L (42.0-52.0) % MCV 84.5 (80.0-100.0) fL MCH 28.3 (25.0-34.0) pg MCHC 33.5 (32.0-36.0) g/dL RDW Std Deviation 52.0 H (36.4-46.3) fL RDW Coeff of Chantal 16.8 H (11.5-14.5) % Plt Count 223 (130-400) K/uL MPV 10.2 (9.4-12.4) fL Immature Gran % (Auto) 0.2 % Neut % (Auto) 67.5 % Lymph % (Auto) 19.1 % [place] % (Auto) 9.7 % Eos % (Auto) 2.3 % Baso % (Auto) 1.2 % Neut # (Auto) 3.50 (1.40-6.50) K/uL Lymph # (Auto) 0.99 L (1.20-3.40) K/uL [place] # (Auto) 0.50 (0.11-0.59) K/uL Eos # (Auto) 0.12 (0.00-0.50) K/uL Baso # (Auto) 0.06 (0.00-0.20) K/uL Immature Gran # (Auto) 0.01 (0.01-0.20) K/uL PT 10.8 (9.0-12.0) Seconds INR 1.0 (0.9-1.1) APTT 25.4 (21.0-31.0) Seconds PTT Ratio 0.9 VBG pH 7.31 L (7.36-7.41) VBG pCO2 50 (38-50) mmHg VBG pO2 29 mmHg VBG HCO3 25 mmol/L VBG O2 Saturation < 60.0 % VBG Base Excess -1.7 mEq/L Carboxyhemoglobin 1.2 % THgb Sodium 132 L (136-145) mmol/L Potassium 4.5 (3.5-5.1) mmol/L Chloride 99 (98-107) mmol/L Carbon Dioxide 25 (21-32) mmol/L Anion Gap 8 (3-11) BUN 21 (6-23) mg/dl Creatinine 1.67 H (0.6-1.4) mg/dl Est Cr Clr Drug Dosing 36.2 ml/min Est GFR ( Amer) 42.6 ml/min Est GFR (Non-Af Amer) 36.8 ml/min BUN/Creatinine Ratio 12.6 (10-20) Glucose 157 H (70-99(Fasting)) mg/dl Calcium 8.4 L (8.6-10.3) mg/dl Troponin I High Sens 8.0 (0-20) pg/ml Lipase 24 (11-82) U/L Imaging Data Attestation: I personally reviewed and interpreted this imaging study as follows: My Impression: No significant change from the chest x-ray done on May 23, 2023 Radiologist's Impression: Head CT 10/20/23 19:18 Exam(s): CT HEAD Without Contrast EXAM: CT Head Without Intravenous Contrast CLINICAL HISTORY: Reason for exam: syncope. TECHNIQUE: Axial computed tomography images of the head/brain without intravenous contrast. CTDI is 36.31 mGy and DLP is 625.8 mGy-cm. Automated exposure control was utilized for the study. A dose lowering technique was utilized adhering to the principles of ALARA. COMPARISON: No relevant prior studies available. FINDINGS: Brain: No intracranial hemorrhage, mass-effect, or cerebral edema. Global parenchymal atrophy. Ventricles: Unremarkable. Bones/joints: Unremarkable. No fracture. Soft tissues: Unremarkable. Sinuses: No acute sinusitis. Mastoid air cells: Unremarkable as visualized. IMPRESSION: No acute abnormality. Electronically signed by: Chase King MD 10/20/23 20:06 PM ECG Data Attestation: I personally reviewed and interpreted this ECG as follows: Rate (beats per minute): 62 Rhythm: + atrial fibrillation ECG Intervals/blocks: + Normal QRS and + Normal QT-c ECG ST segments: + Normal ST segments MDM Narrative Cardiac monitoring: An order was placed for continuous cardiac monitoring. The monitor shows a rate of 80 with sinus rhythm interpreted by me Vital signs stable. Labs and imaging within normal limits. Patient is alert and oriented x 3 in no acute distress. He reports no headache chest pain difficulty breathing. No abdominal pain. I discussed the possibility discharged with the patient the patient states he does not feel comfortable being discharged home and states he does not think his could take care of him at home to come pick him up. Patient will be admitted to the hospitalist team. Impression & Plan Syncope Discharge Plan Visit Data Chief Complaint: Syncope ED Provider: Alex Abdul Discharge Problem: Syncope Patient Disposition: Being Evaluated by Hospitalist Forms Stand Alone Forms: My [facility] Prescriptions Prescriptions: No Action gabapentin 300 mg capsule 300 mg PO BID PRN (Reason: pain) Qty: 60 5RF methimazole 10 mg tablet 10 mg PO DAILY Qty: 90 3RF (DME) Wheeled Walker Misc See Rx Instructions .Route Qty: 1 0RF Rx Instructions: Rollator walker with hand brakes and seat (DME) Portable Oxygen Misc See Rx Instructions .Route Qty: 1 0RF Rx Instructions: As directed Arnuity Ellipta 100 mcg/actuation blister with device 1 inh inhalation DAILY Qty: 30 5RF tamsulosin 0.4 mg capsule 0.4 mg PO DAILY Qty: 90 3RF pantoprazole [Protonix] 40 mg tablet,delayed release (DR/EC) 40 mg PO BID furosemide 20 mg tablet 20 mg PO QAM Qty: 90 3RF ipratropium-albuterol 0.5 mg-3 mg(2.5 mg base)/3 mL solution for nebulization 3 ml NEB BIDR Qty: 90 3RF cholecalciferol (vitamin D3) 1,000 unit (25 mcg) tablet 2,000 units PO QAM aspirin 81 mg Tablet,Delayed Release (Dr/Ec) 81 mg PO QAM acetaminophen [Tylenol Extra Strength] 500 mg Tablet 500 mg PO Q6H PRN (Reason: Pain) Referrals Referrals: Corby Zuniga DO [Primary Care Provider] - Discharge Problem: Syncope Qualifiers: Syncope type: unspecified Qualified Code(s): R55 - Syncope and collapse
[2023-10-21] MEDS ORDERED: ACETAMINOPHEN 325 MG TAB PO PRN (00:52)
[2023-10-21] MEDS ORDERED: POLYETHYLENE (MIRALAX) 17 GM PACK PO PRN (00:52)
[2023-10-21] MEDS ORDERED: ONDANSETRON INJ 2 MG/ML 2 ML VIAL IV PRN (00:52)
[2023-10-21] MEDS ORDERED: GABAPENTIN 300 MG CAP PO PRN (00:52)
[2023-10-21 04:31] LABS: Basophils # (auto) 0.05 K/uL (0.00-0.20); Eosinophils % (auto) 2.1 %; Hematocrit (blood only) 34.9 % (42.0-52.0); Hemoglobin 11.9 g/dl (14.0-18.0); Immature Granulocytes # (auto) 0.01 K/uL (0.01-0.20); Immature Granulocytes % (auto) 0.2 %; Lymphocytes # (auto) 1.01 K/uL (1.20-3.40); Lymphocytes % (auto) 21.1 %; Mean Corpuscular Hemoglobin 28.2 pg (25.0-34.0); Mean Corpuscular Hgb Conc 34.1 g/dL (32.0-36.0); Mean Corpuscular Volume 82.7 fL (80.0-100.0); Mean Platelet Volume 9.7 fL (9.4-12.4); Monocytes # (auto) 0.63 K/uL (0.11-0.59); Monocytes % (auto) 13.2 %; Neutrophils # (auto) 2.99 K/uL (1.40-6.50); Neutrophils % (auto) 62.4 %; Platelet Count 215 K/uL (130-400); RDW Coefficient of Variation 16.6 % (11.5-14.5); RDW Standard Deviation 50.1 fL (36.4-46.3); Red Blood Count 4.22 M/uL (4.70-6.10); White Blood Count 4.79 K/ul (4.8-10.8)
[2023-10-21 04:44] LABS: Albumin Level 3.4 gm/dl (3.4-5.0); BUN Creatinine Ratio 12.8 (10-20); Calcium 8.1 mg/dl (8.6-10.3); Creatinine Clr Calc Pharmacy 40.8 ml/min; Est GFR (African American) 49.3 ml/min; Est GFR (Non-African American) 42.5 ml/min; Potassium 4.6 mmol/L (3.5-5.1)
--- OUTSIDE RECORDS SUMMARY | 2023-10-21 06:17 | External Medical Summary | Summary of Care ---
Author Name Unknown Organization [facility] Address [address] [place] [address] Phone [phone] Care Team Providers Care Management Recruiter Name Role Phone Corby Zuniga DO Primary Care Provi gerda Encounter Details Date Type Department Care Team (Late st Contact Info) Description 06/07/2023 Population Health External Data Unspecified Department Allergies Active Allergy Reactions Criticality Noted Date Comments Nkda 06/28/2006 documented as of this encounter (statuses as of 10/04/2023) Medications Medication Sig Dispensed Refills Start Date End Date Status Gabapentin 600 MG TabletIndications:Po stherpetic neuralgia Take 1 Tab by mouth 3 times a day. 90 Tab 6 03/31/2016 Active Additional Information Patient taking differently:600 mg Oral TID(AM/NOON/HS),Indications: takes 4 times a day, Reported on 01/25/2018 Aspirin 81 MG Tablet Take 1 Tablet by mouth in the morning. 0 Active [place] 3 1000 MG CAPS Take by mouth. 0 Active Acetaminophen (TYLENOL) 325 MG CAPS Take by mouth. 0 Active Levothyroxine Sodium 100 MCG Oral Tablet (Synthroid) Take 1 Tablet by mouth daily first thing in the morning. (at least 30 min prior to breakfast or other meds) 0 Active documented as of this encounter (statuses as of 10/04/2023) Active Problems Problem Noted Date Diagnosed Date Post herpetic neuralgia 01/26/2020 History of lymphoma 10/09/2019 Encounter for antineoplastic chemotherapy 2014 ADVANCE DIRECTIVE INFORMATION 10/06/2007 Overview: No, Advance Directive brochure given to patient. LYMPHOMAS NEC MULT 06/28/2006 RENAL & URETERAL DIS NOS 06/28/2006 documented as of this encounter (statuses as of 10/04/2023) Social History Tobacco Use Types Packs/Day Years Used Date Smoking Tobacco: Former Cigarettes 1 40 Q uit: 03/20/2005 Smokeless Tobacco: Never Alcohol Use Standard Drinks/Week Comments Yes 7 (1 standard drink = 0.6 oz pur e alcohol) 2-3 beers per day Sex and Gender Information Value Date Recorded Sex Assigned at Not on file Gender Identity Not on file Sexual Orientation Not on file Job Start Date Occupation Industry Not on file Not on file Not on file documented as of this encounter Plan of Treatment Upcoming Encounters Date Type Department Care Team (Late st Contact Info) Description 02/01/2024 7:45 AM EDT Office Visit Hematology/Oncology [place] [address] [facility] [place] [phone] Ephraim Abebe MD [address] [facility] [place] [id number] Health Maintenance Due Date Last Done Comments COVID-19 Vaccine (#1) 03/04/1941 Depression Screening 1952 DTaP,Tdap,and Td Vaccines (1 - Tdap) 1957 Pneumococcal Vaccine: 65+ Years (1 - PCV) 2003 Influenza Vaccine (FLU shot) (#1) 2023 TSH 05/31/2024 05/31/2023 Zoster Vaccines Completed 02/26/2021, 10/29/2020 GARDASIL-HPV IMMUNIZATION SERIES Aged Out No longer eligible b ased on patient's age to complete this topic Hepatitis B Aged Out No longer eligi ble based on patient's age to complete this topic MENINGOCOCCAL (MENACTRA/MENVEO) Aged Out No longer eligible b ased on patient's age to complete this topic documented as of this encounter Medical Devices Implanted Type Area Rfid Specialist Device Identifier Shelf Expiration Date Model / Serial / Lot Bard Powerport Single Mercedes Implanted:Qty: 1 on 07/24/2015 by Malina Moreno MD at OR [facility] Left: Chest CR BARD : ACCESS SYSTEMS 11/23/2016 [id number] / / [id number] documented as of this encounter Care Teams Management Recruiter Relationship Specialty Start Date End Date Corby Zuniga DO [address] [place] [address] [place] [id number] PCP - General Family Medicine 07/11/20 documented as of this encounter
--- NOTE | 2023-10-21 07:04 | XRay Report ---
XR chest 1V portable HISTORY: 83 years-old Male Chest pain, nonspecific COMPARISON: Chest CT 07/07/2023 and 05/18/2023, chest x-ray 05/23/2023 TECHNIQUE: AP view of the chest FINDINGS: Cardiac silhouette is enlarged. Emphysema with chronic fibrotic changes are again noted. No pneumothorax, large pleural effusion or overt pulmonary edema. Persistent bibasilar and right mid lung ill-defined air space opacities. Bones appear grossly intact. IMPRESSION: 1. Cardiomegaly without acute process. 2. Emphysema with chronic fibrotic changes. 3. Ill-defined bibasilar and right midlung airspace opacities are again noted which are better seen o n the comparison chest CTs ACT 112: Negative or not required by law. The above report was generated using voice recognition software. It may contain grammatical, syntax o r spelling errors. Electronically signed by: Benjamín Tyson M.D. 10/21/2023 7:02 AM
--- NOTE | 2023-10-21 07:25 | Hospitalist Progress Note ---
Date of Service October 21, 2023 Assessment & Plan (1) Postural dizziness with near syncope: (2) Hyponatremia: (3) Chronic kidney disease with active medical management without dialysis, stage 3 (moderate): (4) Emphysema/COPD: (5) Pulmonary hypertension: (6) Hyperthyroidism: Plan Syncope 83 year old male admitted for syncopal episode. -Syncopal episode x1. -Labs unremarkable for any changes from patient's baseline. Troponin negative. -CT head negative for any acute abnormality. -CXR with mild increase in perihilar opacity at the R lung, not as likely infective. -Patient does have history of venous insufficiency/stasis which he attributes to his syncopal episodes. -He appears euvolemic on exam so less likely related to history of R heart failure and pulmonary hypertension. -Has history of transient cardiomyopathy with recent echo from normal EF. -Given past history of cardiomyopathy will admit to telemetry and obtain repeat echocardiogram, results pending Chronic kidney disease with active medical management without dialysis, stage 3 (moderate) -Chronic, recent creatinine baseline around 1.6-1.8. -Creatinine 1.6 this admission, at baseline. Continue to monitor. Anemia -Chronic, hemoglobin baseline around 13. -Hemoglobin this admission 13.2; 11.9 (10/21/23) -No stool irregularities per patient, low concern for blood loss. -Continue to monitor with AM CBC. Emphysema/COPD -Chronic, no pulmonary symptoms, CXR without overt pneumonia. -Continue home inhalers. - 2 LPM O2 at night Pulmonary hypertension -Chronic, follows with pulmonology. Managed with Lasix outpatient, recommended against vasodilators. -Continue home Lasix 20mg qAM. Right heart failure -Chronic, Same plan as above. Hyperthyroidism -Chronic, continue methimazole. HTN (hypertension) -Chronic, continue to monitor. Hypoxia -History of nocturnal hypoxia with use of 2L O2 at home. Continue while inpatient. Plan F/E/N/GI: T2DM, Full liquid since patient forgot dentures at home. DVT Prophylaxis: Heparin SQ 5K q12h Code status: Full code, discussed with patient. Dispo: Telemetry. Admission and Anticipated Discharge Date Admission Date: October 20, 2023 Supervising Physician Co-Signing Physician Notes ATTESTATION I also saw the patient and confirmed plaza portions of the history and exam. I agree with the impression and plan in the resident documentation, and as summarized below. Upon our midmorning exam, the patient is supine in bed. He notes that he feels tired. He would like to take a nap. He really has no complaints. We reviewed the history of present illness. As stated in the notes previous, he was sitting at the counter for a prolonged period of time cooking dinner when his legs began to feel heavy. He tells us that he was able to call out to his for help and then make his way to the kitchen table. At this point, he tells that he put his head down on the table and he estimates that he was there -either unconscious or sleeping -for period of about 1/2-hour before his called 911. I am not quite sure how long he was unresponsive for -this seems a little longer than was noted in the chart, is not available talk with the time of my exam. EXAM 132/76, 81, 20, 36.5, 92% 2 L/min on nasal cannula Alert and oriented. Neck is supple No jugular venous distention is appreciated at about 30 degrees Heart regular with frequent ectopy Respirations are nonlabored, lungs are clear Lower extremities without edema DATA Labs Hemoglobin 11.9, platelet count 215 Sodium 130, BUN 19, creatinine 1.[address]NP [address] showed no acute abnormality IMPRESSION & PLAN Syncopal episode The downtime is not really clear here, nor are all the events leading up to the episode. Fortunately, he is asymptomatic at present and work-up thus far nonrevealing PT/OT evaluations Echocardiogram pending Telemetry to rule out dysrhythmia BMP in a.m. given mild hyponatremia Additional per resident documentation Subjective Sohan is an 83 year old male w/ PmHx emphysema/COPD, cardiomyopathy, HTN, hyperthyroidism, hx of GI bleed, pulmonary HTN, R heart failure, nocturnal hypoxia with use of 2L O2, anemia coming into the ER after syncopal episode. Patient states that earlier this evening he was standing for a good amount of time making burgers and eggs for dinner when he started to feel his legs get heavy. He states that he has a history of poor circulation in his legs and if he stands for longs periods of time without moving then he tends to get this heavy leg sensation and pass out. Patient states that once he felt this heavy leg sensation he knew he was close to passing out and he yelled for his who was outside or in another room a few times. He sat down at his kitchen table and passed out while sitting. He did not hit his head and did not move. He is unaware of how long he was passed out for. The ambulance was called and he was brought here for evaluation. He denies any recent cold symptoms, fevers, chills, shortness of breath, chest pain, diarrhea, nausea, vomiting, constipation, abdominal pain, congestion. He had felt fine otherwise. He denies any smoking currently, last smoked in early and has quit since then, he drinks 2 glasses of beer a day. In the ER Hgb 13.2, Na 132, Creat 1.67, otherwise unremarkable blood work. CXR with mild increase in perihilar opacity at the R lung. Head CT negative for any acute abnormality. Review of Systems Constitutional: no fever, no chills and no weakness Ear, Nose, Mouth, Throat: + post nasal drip; no nasal congestion, no nasal discharge and no sinus pain/pressure Respiratory: + cough, + dyspnea on exertion and + spu rufino production; no dyspnea Cardiovascular: no chest pain and no palpitations Gastrointestinal: no nausea, no vomiting, no constipation and no diarrhea/loose stools Neurologic: no tingling and no numbness Physical Exam Constitutional: WD/WN, vitals as above Respiratory: normal respiratory effort, lungs clear to auscultation Cardiovascular: RRR, no murmur, no edema Gastrointestinal (Abdomen): normal bowel sounds, soft, nontender, no hepatosplenomegaly Results & Data Results & Data Vital Signs (Past 12 Hours) Vital Signs Temp Pulse Pulse Resp BP BP Pulse Ox 10/21/23 07:11 70 10/21/23 03:45 10/21/23 03:45 36.5 C 75 18 158/95 H 98 10/21/23 03:45 10/21/23 03:00 68 18 164/98 H 97 10/21/23 00:20 72 10/20/23 22:30 79 15 147/102 H 91 10/20/23 22:16 72 10/20/23 22:00 66 12 154/91 H 94 10/20/23 21:30 70 12 146/90 H 92 10/20/23 21:00 61 16 143/87 H 92 11/29/23 20:30 70 13 139/91 93 10/20/23 20:18 83 17 133/91 92 10/20/23 19:30 71 15 92 Pulse Ox O2 Del Method O2 Del Method O2 Flow Rate O2 Flow Rate 10/21/23 07:11 10/21/23 03:45 Nasal Cannula 2 10/21/23 03:45 Nasal Cannula 2 10/21/23 03:45 98 Nasal Cannula 2 10/21/23 03:00 Nasal Cannula 3 10/21/23 00:20 10/20/23 22:30 Room Air 10/20/23 22:16 10/20/23 22:00 Room Air 10/20/23 21:30 Room Air 10/20/23 21:00 Room Air 10/20/23 20:30 Room Air 10/20/23 20:18 Room Air 10/20/23 19:30 Room Air Resident Activity Tracking Resident Involvement: Resident Care Provided Care Provided: Adult Hospital Medicine
[2023-10-21] MEDS: ALBUT/IPRATROP 3MG/0.5MG NEB 3 ML VIAL NEB SCH ×2 (07:37→21:04)
[2023-10-21] MEDS: CHOLECALCIFEROL 1,000 UNITS 25 MCG TAB PO SCH (09:05)
[2023-10-21] MEDS: FUROSEMIDE 20 MG TAB PO SCH (09:06)
[2023-10-21] MEDS: TAMSULOSIN HCL 0.4 MG CAP PO SCH (09:06)
[2023-10-21] MEDS: ASPIRIN 81 MG ECTAB PO SCH (09:07)
[2023-10-21] MEDS: methIMAzole 5 MG TABLET PO SCH (09:07)
[2023-10-21] MEDS: FLUTICASONE FUROATE 100MCG 14 PUFFS/INHALER INH SCH (09:08)
[2023-10-21] MEDS: PANTOprazole 40 MG TAB PO SCH ×2 (09:12→20:23)
--- NOTE | 2023-10-21 12:34 | XCELERA ---
[id number] [id number]
--- NOTE | 2023-10-21 14:03 | Electrocardiogram Report ---
Test Reason : Blood Pressure : / mmHG Vent. Rate : 062 BPM Atrial Rate : 000 BPM P-R Int : 000 ms QRS Dur : 084 ms QT Int : 438 ms P-R-T Axes : 000 -22 000 degrees QTc Int : 444 ms Sinus rhythm with PACs Poor R wave progression, consider anterior NC vs. lead placement vs. LVH Abnormal ECG When compared with ECG of 18-MAY-2023 05:09, T wave inversion less evident in Anterior leads Confirmed by Samuel Muniz ([id number]) on 10/21/2023 2:03:12 PM Referred By: REFERRED SELF Confirmed By:Leonardo Muniz
--- NOTE | 2023-10-22 05:28 | Billing Data ---
Date of Service October 20, 2023 Coding Level of Care Code 87220 INT INP/OBS CARE
[2023-10-22 06:10] LABS: Basophils # (auto) 0.06 K/uL (0.00-0.20); Basophils % (auto) 0.9 %; Eosinophils # (auto) 0.13 K/uL (0.00-0.50); Eosinophils % (auto) 2.1 %; Hematocrit (blood only) 37.8 % (42.0-52.0); Hemoglobin 12.4 g/dl (14.0-18.0); Immature Granulocytes # (auto) 0.03 K/uL (0.01-0.20); Immature Granulocytes % (auto) 0.5 %; Lymphocytes # (auto) 1.08 K/uL (1.20-3.40); Mean Corpuscular Hemoglobin 27.9 pg (25.0-34.0); Mean Corpuscular Hgb Conc 32.8 g/dL (32.0-36.0); Mean Corpuscular Volume 84.9 fL (80.0-100.0); Mean Platelet Volume 9.9 fL (9.4-12.4); Monocytes # (auto) 0.74 K/uL (0.11-0.59); Monocytes % (auto) 11.7 %; Neutrophils % (auto) 67.8 %; Platelet Count 210 K/uL (130-400); RDW Coefficient of Variation 16.5 % (11.5-14.5); RDW Standard Deviation 51.8 fL (36.4-46.3); Red Blood Count 4.45 M/uL (4.70-6.10); White Blood Count 6.34 K/ul (4.8-10.8)
[2023-10-22 06:26] LABS: Albumin Level 3.5 gm/dl (3.4-5.0); BUN Creatinine Ratio 11.2 (10-20); Calcium 8.8 mg/dl (8.6-10.3); Creatinine Clr Calc Pharmacy 40.3 ml/min; Est GFR (African American) 55.6 ml/min; Phosphorus 3.6 mg/dl (2.5-4.9); Potassium 4.5 mmol/L (3.5-5.1)
[2023-10-22] MEDS: ALBUT/IPRATROP 3MG/0.5MG NEB 3 ML VIAL NEB SCH (07:01)
--- NOTE | 2023-10-22 07:52 | Discharge Summary ---
Date of Service October 22, 2023 Admission HPI Per Admitting Provider Sohan is an 83 year old male w/ PmHx emphysema/COPD, cardiomyopathy, HTN, hyperthyroidism, hx of GI bleed, pulmonary HTN, R heart failure, nocturnal hypoxia with use of 2L O2, anemia coming into the ER after syncopal episode. Patient states that earlier this evening he was standing for a good amount of time making burgers and eggs for dinner when he started to feel his legs get heavy. He states that he has a history of poor circulation in his legs and if he stands for longs periods of time without moving then he tends to get this heavy leg sensation and pass out. Patient states that once he felt this heavy leg sensation he knew he was close to passing out and he yelled for his who was outside or in another room a few times. He sat down at his kitchen table and passed out while sitting. He did not hit his head and did not move. He is unaware of how long he was passed out for. The ambulance was called and he was brought here for evaluation. He denies any recent cold symptoms, fevers, chills, shortness of breath, chest pain, diarrhea, nausea, vomiting, constipation, abdominal pain, congestion. He had felt fine otherwise. He denies any smoking currently, last smoked in early 1999' and has quit since then, he drinks 2 glasses of beer a day. In the ER Hgb 13.2, Na 132, Creat 1.67, otherwise unremarkable blood work. CXR with mild increase in perihilar opacity at the R lung. Head CT negative for any acute abnormality. Admission Exam Per Admitting Provider Physical Exam Constitutional: WD/WN, vitals as above Eyes: PERRL, conjunctivae normal, anicteric sclerae Respiratory: normal respiratory effort, lungs clear to auscultation Cardiovascular: S1 and S2, irregularly regular rhythm, occasional missed beat, no murmurs. No edema. Gastrointestinal (Abdomen): normal bowel sounds, soft, nontender, no hepatosplenomegaly Musculoskeletal: no cyanosis or clubbing, extremities motor strength 5/5 Skin: no rashes, warm and dry Psychiatric: A+Ox3, euthymic affect Principal Diagnosis Syncope, venous stasis insufficiency Discharge Exam Constitutional WD/WN, vitals as above Respiratory normal respiratory effort, lungs clear to auscultation Cardiovascular RRR, no murmur, no edema Gastrointestinal (Abdomen) normal bowel sounds, soft, nontender, no hepatosplenomegaly Neurologic moves all extremities and awake; no focal motor deficits Discharge Data Allergies Allergy/AdvReac Type Severity Reaction Status Date / Time No Known Allergies Allergy Verified 10/20/23 20:00 Consultations 10/20/23 21:22 ED Decision to Admit Stat Ordered Studies 10/20/23 19:18 CT head/brain wo con Stat Hospital Course (1) Postural dizziness with near syncope: (2) Hyponatremia: (3) Chronic kidney disease with active medical management without dialysis, stage 3 (moderate): (4) Emphysema/COPD: (5) Pulmonary hypertension: (6) Hyperthyroidism: Plan Syncope 83 year old male admitted for syncopal episode. -Syncopal episode x1 earlier today. -Labs unremarkable for any changes from patient's baseline. Troponin negative. -CT head negative for any acute abnormality. -CXR with mild increase in perihilar opacity at the R lung, not as likely infective. -Patient does have history of venous insufficiency/stasis which he attributes to his syncopal episodes. -He appears euvolemic on exam so less likely related to history of R heart failure and pulmonary hypertension. -Has history of transient cardiomyopathy with recent echo from normal EF. -Given past history of cardiomyopathy will admit to telemetry and obtain repeat echocardiogram, results pending Chronic kidney disease with active medical management without dialysis, stage 3 (moderate) -Chronic, recent creatinine baseline around 1.6-1.8. -Creatinine 1.6 this admission, at baseline. Continue to monitor. Anemia -Chronic, hemoglobin baseline around 13. -Hemoglobin this admission 13.2; 11.9 (10/21/23) -No stool irregularities per patient, low concern for blood loss. -Continue to monitor with AM CBC. Emphysema/COPD -Chronic, no pulmonary symptoms, CXR without overt pneumonia. -Continue home inhalers. - 2 LPM O2 at night Pulmonary hypertension -Chronic, follows with pulmonology. Managed with Lasix outpatient, recommended against vasodilators. -Continue home Lasix 20mg qAM. Right heart failure -Chronic, Same plan as above. Hyperthyroidism -Chronic, continue methimazole. HTN (hypertension) -Chronic, continue to monitor. Hypoxia -History of nocturnal hypoxia with use of 2L O2 at home. Continue while inpatient. Plan F/E/N/GI: T2DM, Full liquid since patient forgot dentures at home. DVT Prophylaxis: Heparin SQ 5K q12h Code status: Full code, discussed with patient. Dispo: Telemetry. Total Time Total Time Spent Total Time Spent (In Minutes): see attending attestation Discharge Plan Discharge Items Patient Disposition: Home - Self-Care Reason For Visit: SYNCOPE Discharge Diagnosis: venous stasis Activity: Resume your previous activity Non-emergency contact: Primary Care Provider Call non-emergency contact if: you have any medication questions and your pain is concerning for you Follow-up/Referrals: Corby Zuniga DO [Primary Care Provider] - 10/29/23 12:00 pm Diet: Regular Addtl Attending Provider Instructions: You were admitted to the hospital for syncope. You were treated with IV fluids and your regular home medications. A discharge summary will be sent to your primary care physician to ensure continuity of care. Please bring this discharge summary with you to your next office appointment so that your provider can review it at that time. Follow-up appointments: We have requested a follow-up appointment with your primary care physician within one week of discharge. Please call their office if you do not hear from them. Keep all your follow-up appointments as already scheduled. If you cannot make an appointment, notify your provider. Medications: Your medication list has been reviewed and reconciled upon discharge to ensure accuracy and continuity of care. An updated list of all your medications is included with your hospital discharge paperwork. Please review this list closely, and make note of any changes. Take your medications as instructed; do not skip a dose of your medicines. Make sure all of your doctors know every medicine you are taking (including rqee-utv-lbhtkjz medicines, vitamins, and supplements). Call your primary care provider before taking any new medicines (including nmwb-nly-yhplacs medicines, vitamins, and supplements), because some of these may interact with your current medications, or may make your symptoms worse. Tell your primary care provider if you cannot afford your medications. CONTACT YOUR PRIMARY CARE PROVIDER if you experience any of the following: another syncopal event (leg heaviness with lightheadedness), increased pre- syncopal episodes Difficulty following your treatment plan, or difficulty taking medications CALL 911 OR GO TO THE EMERGENCY DEPARTMENT if you experience any of the following: Sudden, severe abdominal pain or nausea/vomiting Severe chest pain, or chest pain that radiates (moves) to your jaw or arm Sudden, severe shortness of breath or difficulty breathing Thank you for allowing us to participate in your care Pending Studies at Discharge: No Stand-Alone Forms: My [facility], Smoking Cessation Medications and DC Order Prescriptions: Continued gabapentin 300 mg capsule 300 mg PO BID PRN (Reason: pain) Qty: 60 5RF methimazole 10 mg tablet 10 mg PO DAILY Qty: 90 3RF (DME) Wheeled Walker Misc See Rx Instructions .Route Qty: 1 0RF Rx Instructions: Rollator walker with hand brakes and seat (DME) Portable Oxygen Misc See Rx Instructions .Route Qty: 1 0RF Rx Instructions: As directed Arnuity Ellipta 100 mcg/actuation blister with device 1 inh inhalation DAILY Qty: 30 5RF tamsulosin 0.4 mg capsule 0.4 mg PO DAILY Qty: 90 3RF pantoprazole [Protonix] 40 mg tablet,delayed release (DR/EC) 40 mg PO BID furosemide 20 mg tablet 20 mg PO QAM Qty: 90 3RF ipratropium-albuterol 0.5 mg-3 mg(2.5 mg base)/3 mL solution for nebulization 3 ml NEB BIDR Qty: 90 3RF cholecalciferol (vitamin D3) 1,000 unit (25 mcg) tablet 2,000 units PO QAM aspirin 81 mg Tablet,Delayed Release (Dr/Ec) 81 mg PO QAM acetaminophen [Tylenol Extra Strength] 500 mg Tablet 500 mg PO Q6H PRN (Reason: Pain) Discharge Orders: Discharge Order (Routine); Ordered 10/22/23 Ordered By: Samuel Jerry/Other Patient Handouts: Anemia, What Is Syncope, Dizziness Fainting Causes Admission Data Admit Date/Time: 10/20/23 23:21 Attending Provider: Samuel Ceballos Admit Provider: Ho Ho Primary Care Provider: Corby Zuniga Other Providers: Marielos Johnson Other Interventions: Discharge Summary Assessment (RN) Last Done: 10/22/23 07:56 Supervising Physician Co-Signing Physician Notes Attending attestation Pt seen and examined in concert with Dr. Black. In agreement with the documented findings as noted in the resident documentation with any exceptions or additions as noted here. Resting comfortably in chair at bedside without acute complaint. Per patient, similar previous episodes. Generally tries to limit his time standing with exertion to avoid this happening, will elevated legs and drink water if able. On examination, S1/S2 nl RRR no MCG. CTAB. Abd NT/ND BS+ve VS: 136/74, 80, 15, 98 RA Data: Hgb 12.4, Na 132, BUN 15, Cr 1.34 Syncopal episode - EKG, telemetry, echocardiogram - h/o similar. Recommended lifestyle modifications and close follow up with PCP Anemia, chronic, normocytic - stable hemoglobin CKDIII - avoid nephrotoxic medications Else see resident documentation as noted. Total attending physician time spent with this patient's care on the day of discharge: 45 minutes.
[2023-10-22] MEDS: TAMSULOSIN HCL 0.4 MG CAP PO SCH (08:46)
[2023-10-22] MEDS: CHOLECALCIFEROL 1,000 UNITS 25 MCG TAB PO SCH (08:46)
[2023-10-22] MEDS: FUROSEMIDE 20 MG TAB PO SCH (08:46)
[2023-10-22] MEDS: PANTOprazole 40 MG TAB PO SCH (08:46)
[2023-10-22] MEDS: methIMAzole 5 MG TABLET PO SCH (08:46)
[2023-10-22] MEDS: ASPIRIN 81 MG ECTAB PO SCH (08:46)
[2023-10-22] MEDS: FLUTICASONE FUROATE 100MCG 14 PUFFS/INHALER INH SCH (11:03)
== END 2023-10-22 17:05 | disposition home or self-care (01) ==
LOC: ED 18:46 → EDINP 18:46 → SUATTDRO 23:21 → 2N 10-21 19:54

== ENCOUNTER 2024-02-09 07:14 | Observation (INO) ==
[2024-02-09] MEDS: ACETAMINOPHEN 1000 MG/100 ML IV IV ONE (10:00)
--- NOTE | 2024-02-09 10:29 | XRay Report ---
XR chest 1V not portable HISTORY: s/p lung biopsy- COMPARISON: Chest CT 01/18/2024. FINDINGS: No pneumothorax. Small right pleural effusion. This appears to represent a hemothorax on th e same day post procedure CT. Patchy right midlung zone and bibasilar densities persist. There are lo w lung volumes. The heart remains enlarged. Emphysema again noted. IMPRESSION: 1. No pneumothorax. 2. However, there is a small right pleural effusion which is demonstrated to be a hemothorax on the jonathan day post procedure CT. ACT 112: Negative or not required by law. Electronically signed by: Wilmar Lyn M.D. 02/09/2024 10:28 AM
[2024-02-09] MEDS: OPTIRAY 320 100ml IV ONE (10:53)
--- NOTE | 2024-02-09 11:08 | CT Scan Report ---
CT SCAN OF THE CHEST WITH IV CONTRAST CLINICAL HISTORY: Hemothorax status post lung biopsy. COMPARISON STUDY: Chest CT dated 01/18/2024. TECHNIQUE: Following the IV administration of 93 cc of Optiray 320, CT scan of the thorax was perform ed from the thoracic inlet to the upper abdomen. Images are reviewed in the axial, sagittal, and matheus nal planes. IV contrast was administered without complication. A dose lowering technique was utilize d adhering to the principles of ALARA. The examination is degraded by motion artifact, as well as by streak artifact from the arms which could not be elevated above the chest. CT DOSE: 994.66 mGy.cm FINDINGS: Thyroid: Mildly enlarged and heterogeneous. Thoracic aorta: There is atherosclerotic calcification of the thoracic aorta, which is normal in todd alma delia and demonstrates standard 3-vessel arch anatomy. No dissection is seen. Pulmonary vasculature: The pulmonary trunk is normal in caliber. There are no filling defects identif ied in the central pulmonary vessels to indicate pulmonary embolus. Note that this examination was no t protocoled for evaluation of the pulmonary arteries. Heart: The heart is enlargement of and without pericardial effusion. The coronary arteries are densel y calcified. Lungs and pleural spaces: There is moderate to advanced emphysema. No pneumothorax is identified. A s mall amount of hyperdense pleural fluid at the right lung base is new from previous and consistent wi th hemothorax. There is also a small amount of hemothorax at the anterior right lung base. No active extravasation is identified. The 3.9 cm pleural-based density in the right lower lobe is obscured. A 3.6 cm focus of round atelectasis is again seen in the left lower lung. A trace chronic thick walled pleural collection at the left lung base is unchanged. Foci of parenchymal scarring are seen througho ut both lungs. Mediastinum: Prominent mediastinal lymph nodes are unchanged. Bing: Clear. Axillae: There is no axillary lymphadenopathy. Upper abdomen: Bilateral renal cysts measure up to 4.3 cm. A 6 mm nonobstructing calculus is seen in the lower pole of left kidney. There is a 1.4 cm left lobe hepatic cyst. Skeletal structures: The skeletal structures are osteopenic. Degenerative change and hyperkyphosis is noted in the thoracic spine. No lytic or blastic bony lesions are seen. 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 IMPRESSION: 1. A small volume of hyperdense pleural fluid at the right lung base is new from previous and consist ent with hemothorax. There is no evidence of active extravasation at the time of examination. 2. No pneumothorax is seen. 3. Cardiomegaly and advanced emphysema. 4. A 4 cm indeterminate pleural-based density in the right lower lobe and a focus of round atelectasi s in the left lower lobe are similar to previous. The right-sided density is partially obscured by he mothorax. 5. A trace chronic pleural collection at the left lung base is unchanged. 6. Left-sided nephrolithiasis. 7. Additional findings as above. ACT 112: Negative or not required by law. Electronically signed by: Steven Bañuelos M.D. 02/09/2024 11:07 AM
[2024-02-09] MEDS ORDERED: SODIUM CHLORIDE 0.9% 250 ML IV PRN (11:10)
[2024-02-09] MEDS: fentaNYL citrate PF 100 MCG/2 ML VIAL ONE (11:20)
[2024-02-09 11:30] LABS: Hematocrit (blood only) 38.7 % (42.0-52.0); Hemoglobin 13.3 g/dl (14.0-18.0)
--- NOTE | 2024-02-09 11:56 | History & Physical Report ---
Date of Service February 09, 2024 Assessment & Plan (1) Acute pneumothorax: Plan: Assessment: 1. Acute hemothorax status post interventional radiology CT-guided biopsy of right lung nodule. Very stable. On room air. At this point we will do continuous pulse ox. His nebulizers are ordered as at home. Pulmonology been consulted to follow. Will do some postprocedural labs. Repeat labs in the morning. 2. Right lung nodule which has been growing and appears suspicious status post biopsy today. Biopsy pending. 3. COPD. Patient is oxygen dependent at night at 2 L. His oxygen independently during the day. There is no acute exacerbation at this time. 4. CKD stage II labs are pending. 5. Essential hypertension continue home medications. He is on aspirin presumably for cardiac prophylaxis. This will be held at this time given the above complication. 6. Pulmonary hypertension by history follows with pulmonology. 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 8. History of hyperthyroidism. We will check a TSH. 9. Mild debility. The patient typically ambulates with a rollator when outside the house inside the house he does fine. Plan: As discussed above. Please refer to orders for further planning. History of Present Illness Chief Complaint: Acute hemothorax status post interventional radiology biopsy of right lung nodule. Primary Care Provider: Corby Zuniga, DO Diaz 83-year-old male who came to the hospital today to undergo elective interventional radiology CT-guided biopsy of right lung nodule. Postprocedure the patient developed a small hemothorax. CAT scan was completed. It does not appear to be any pneumothorax. Patient is stable on room air. Given the hemothorax however we were notified by interventional radiology and request admission for observation overnight to ensure the hemothorax has not progressed. We have a consult with the patient's paint maker Dr. Garrido and communicated the above with him and he will follow along with us. We are obtaining some mild postprocedural labs at this point. Patient has no complaints as discussed below. He has no pain he denies shortness of breath again he is stable on room air. Allergies Allergy/AdvReac Type Severity Reaction Status Date / Time No Known Allergies Allergy Verified 02/03/24 11:41 Home Medications Medication Instructions Recorded Confirmed Type cholecalciferol (vitamin D3) 25 2,000 units PO QAM 08/23/19 02/09/24 History mcg (1,000 unit) tablet aspirin 81 mg tablet,delayed 81 mg PO QAM 12/17/19 02/09/24 History release Portable Oxygen E0431 #1 ea 07/01/23 02/09/24 Rx Wheeled Walker #1 ea 07/01/23 02/09/24 Rx acetaminophen 500 mg tablet 500 mg PO Q6H PRN Pain 10/20/23 02/09/24 History (Tylenol Extra Strength) furosemide 20 mg tablet 20 mg PO QAM #90 tabs 11/02/23 02/09/24 Rx gabapentin 300 mg capsule 300 mg PO BID PRN pain #60 caps 01/14/24 02/09/24 Rx ipratropium 0.5 mg-albuterol 3 mg 3 ml NEB QID 02/03/24 02/09/24 History (2.5 mg base)/3 mL nebulization soln methimazole 10 mg tablet 10 mg PO QAM 02/03/24 02/09/24 History tamsulosin 0.4 mg capsule 0.4 mg PO QAM 02/03/24 02/09/24 History fluticasone furoate 100 1 inh inhalation DAILY #30 ea 02/07/24 02/09/24 Rx mcg/actuation blister powder for inhalation (Arnuity Ellipta) Past Med/Surg History Medical History (Updated 02/09/24 @ 11:53 by Nish Gilbert, PhD, DO) Hypertension Sensorineural hearing loss (SNHL) of both ears Cor pulmonale Pulmonary hypertension Pulmonary nodule RLL Chronic kidney disease History of shingles takes gabapentin for pain Hyperthyroidism Emphysema/COPD Lymphoma (~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 Surgical History History of nasal surgery (~2014) due to CA Hx of esophagogastroduodenoscopy Hx of colonoscopy H/O varicose vein ligation Family History Father , Age 91 Renal failure Mother Breast cancer Denies family history of Ovarian cancer Prostate cancer Myocardial infarction Colorectal cancer Social History Smoking Status: Former smoker Tobacco Type: Cigarettes Age Started Using Tobacco: 18; Age Quit Using Tobacco: 61; Cigarettes Per Day: 1 PPD; Second Hand Exposure: No; Do You Dip or Chew Tobacco: No; Hx Alcohol Use: No Hx Substance Use: No Preferred Language: Urdu Communication Ability: Effective Visual Impairment: No Limitations Hearing Ability: Hard of Hearing Analytical Lab Analyst Required: No Beliefs That Will Affect Care: None marital status: Current Living Situation: Spouse current occupational status: retired How many Children do You have: 1 Feels Safe at Home: Yes Safety Concerns: Feels Safe At This Time Childhood Exposure to Second-Hand Smoke: No Diet: regular caffeine: Yes Dental Care, Regularly: No Physical Activity Frequency: Does not Exercise Seatbelt Use: always Sunscreen Use: No Assistive Devices: Walker Review of Systems Review of Systems: A 10 point review of system was obtained and unless otherwise stated here or in history of present illness are negative and noncontributory to chief complaint. Physical Exam Physical Exam: In General: In general this is a pleasant 83-year-old male who is alert and oriented x 3 he is in no acute distress he is conversing in full sentences he is not dyspneic or have conversational dyspnea. He interacts appropriately pleasantly we talked about extended period of time about his gardening. He is retired from [employer] where he spent 39 years 5 months in 10 days. HEENT: Normocephalic atraumatic pupils are equal round and reactive to light bilaterally. No scleral icterus no conjunctival injection external auditory canals are patent septum is in the midline nose is without discharge oral mucosa is pink and moist without lesion. NECK: Supple no rigidity no lymphadenopathy no thyromegaly no carotid bruits no JVD no masses. HEART: Regular rate and rhythm I do not appreciate any ectopy or rub. No murmur. LUNGS: Essentially clear bilaterally mildly diminished in the bases due to poor inspiratory effort lying in the gurney here. Essentially negative lung exam. ABDOMEN: Soft nontender, no rebound, no peritoneal signs, positive bowel sounds, no appreciable organomegaly. EXTREMITIES: Intact, no peripheral cyanosis, clubbing or edema. Strength is 5 out of 5 in extremities x4, no pathological reflexes. NEUROLOGICAL: Cranial nerves II through XII are grossly intact with no focal deficit elicited upon examination. No tremor. Results & Data Results & Data Vital Signs (Past 12 Hours) Vital Signs Temp Pulse Resp BP Pulse Ox O2 Del Method 02/09/24 11:30 74 16 156/74 H 94 Room Air 02/09/24 11:15 75 16 146/86 H 94 Room Air 02/09/24 11:00 74 18 148/72 H 94 Room Air 02/09/24 10:45 72 18 154/78 H 92 Room Air 02/09/24 10:30 74 16 152/86 H 92 Room Air 02/09/24 10:15 78 16 155/108 H 92 Room Air 02/09/24 10:00 75 16 171/103 H 92 Room Air 02/09/24 07:32 36.6 C 60 16 154/89 H 95 Room Air Code Status & VTE Plan Code Status Full code.-Discussed. VTE Prophylaxis Plan VTE Prophylaxis will be ordered: Yes Reason for no VTE drug order: Contraindicated PG Care Time/CCT Total # of Minutes Spent Total Time Spent with Patient: Total time spent is greater than 50% in coordination of care (as documented) at patient's floor/unit and/or counseling patient: Coding Level of Care Code 62224 INT INP/OBS CARE 75MIN Diagnoses Acute pneumothorax J93.83
[2024-02-09 13:08] LABS: Basophils # (auto) 0.07 K/uL (0.00-0.20); Basophils % (auto) 1.2 %; Eosinophils # (auto) 0.09 K/uL (0.00-0.50); Eosinophils % (auto) 1.6 %; Hematocrit (blood only) 41.3 % (42.0-52.0); Hemoglobin 14.3 g/dl (14.0-18.0); Immature Granulocytes # (auto) 0.02 K/uL (0.01-0.20); Immature Granulocytes % (auto) 0.3 %; Mean Corpuscular Hemoglobin 30.6 pg (25.0-34.0); Mean Corpuscular Hgb Conc 34.6 g/dL (32.0-36.0); Mean Corpuscular Volume 88.2 fL (80.0-100.0); Monocytes # (auto) 0.56 K/uL (0.11-0.59); Monocytes % (auto) 9.7 %; Neutrophils # (auto) 3.96 K/uL (1.40-6.50); Neutrophils % (auto) 68.2 %; Platelet Count 259 K/uL (130-400); RDW Coefficient of Variation 14.1 % (11.5-14.5); RDW Standard Deviation 45.3 fL (36.4-46.3); Red Blood Count 4.68 M/uL (4.70-6.10)
--- NOTE | 2024-02-09 13:14 | CT Scan Report ---
CT-GUIDED RIGHT LUNG MASS CORE BIOPSY CLINICAL HISTORY: 3.6 cm right lower lobe pleural-based lung mass with mild FDG uptake COMPARISON STUDY: PET CT dated 02/02/2024. PROCEDURE: Procedure and risks were explained. Informed consent was obtained. A final timeout was com pleted. The patient was placed prone on the CT examination table. The right posterior thorax was prep ped and draped in sterile fashion. 1% buffered lidocaine was utilized for skin anesthesia. Utilizing CT guidance, a 19-gauge coaxial needle was advanced into the right lower lobe lung mass. A 20-gauge core biopsy needle was advanced, and 4 cores were obtained and given to the pathologist for review. The coaxial needle was removed and Band-Aid applied. A small amount of bleeding was noted aft er removing the coaxial needle in the posterior soft tissues. Pressure and ice were applied. Postbiop sy CT scan demonstrated no evidence for pneumothorax or intramuscular soft tissue hematoma. Layering hyperdense pleural fluid seen anteriorly on the CT images consistent with a small volume of hemothora x. The patient's vital signs remained stable during and after the procedure without complaints of sig nificant chest pain or shortness of breath. A delayed CT chest with IV contrast was performed approxi mately 1 hour post biopsy. No active extravasation or increase in the pleural effusion was noted. Ple ase refer to separate chest CT report dictated on the same day for further details. The referring pul thermal technician and regional business manager were notified of the above findings. The patient is being admitted for 23 hour observation. IMPRESSION: Right lower lobe lung mass core biopsy with small right hemothorax as described above. T he patient continues to remain stable without symptoms and is being admitted for 23 hour observation. Performed, dictated, and signed by Baldev Motley PA-C; to be co-signed by Dr. Steven Bañuelos. Electronically signed by: Steven Bañuelso M.D. 02/09/2024 4:21 PM
[2024-02-09] MEDS ORDERED: GABAPENTIN 300 MG CAP PO PRN (13:15)
[2024-02-09 13:19] LABS: Albumin Globulin Ratio 1.4 (0.9-2); Albumin Level 3.9 gm/dl (3.4-5.0); BUN Creatinine Ratio 13.8 (10-20); Bilirubin,Total 0.7 mg/dl (0.2-1.0); Calcium 8.9 mg/dl (8.6-10.3); Creatinine Clr Calc Pharmacy 34.4 ml/min; Est GFR (African American) 47.7 ml/min; Est GFR (Non-African American) 41.2 ml/min; Globulin 2.7 gm/dl (2.5-4.0); Magnesium 2.2 mg/dl (1.7-2.4); Potassium 4.1 mmol/L (3.5-5.1); Total Protein 6.6 gm/dl (6.0-8.3)
[2024-02-09] MEDS: ALBUT/IPRATROP 3MG/0.5MG NEB 3 ML VIAL NEB SCH ×2 (13:40→19:25)
--- NOTE | 2024-02-09 15:11 | Pulmonary Consultation ---
Date of Consultation February 09, 2024 Assessment & Plan (1) Hemothorax, postoperative: (2) Abnormal chest CT: Plan Impression: 83-year-old male with prior history of lymphoma and now with PET positive pulmonary nodule and adenopathy status post biopsy which resulted in small hemothorax. He is being observed clinically. Recommendations: 1. Hemothorax: Will plan on repeat CT scan in AM. If stable, the patient can likely be discharged. 2. Await results from the biopsy. If nondiagnostic, could consider endobronchial ultrasound with transbronchial needle aspiration given the PET positive lymph nodes. This would be higher risk however we may be able to do this without general anesthesia. The above recommendations and plan were discussed extensively with the patient. Questions were answered to the best my ability. He expressed understanding and is agreement with plan as outlined. History of Present Illness Attending Physician: Nish Gilbert, PhD, DO History of Present Illness Asked by hospitalist to assist in evaluation management this patient with development of pleural effusion/hemothorax post lung biopsy. History is obtained from review the electronic medical record as well as discussion with the patient. Patient is an 83-year-old male whom I know from the outpatient setting. Been followed for pulmonary nodules and recently had noted an increasing airspace opacity in the right lung base. Initially we planned on proceeding with navigational robotic bronchoscopy however anesthesia felt that the patient's pulmonary hypertension would preclude him from receiving general anesthesia here so radiology was consulted for CT guided biopsy. He did have a PET scan showing multiple mediastinal lymph nodes with uptake as well. The patient presented today for the procedure. Biopsy was conducted however there afterwards he developed a pleural effusion which was imaged on CT. This appeared to have Hounsfield units concerning for small hemothorax. Follow-up imaging was stable. Intervention was required. Patient has been admitted to the hospital for observation. The patient is doing well clinically. He initially had some chest pain however this is resolved. He is on room air. Not experiencing any shortness of breath. No hemoptysis. Allergies Allergy/AdvReac Type Severity Reaction Status Date / Time No Known Allergies Allergy Verified 02/03/24 11:41 Home Medications Medication Instructions Recorded Confirmed Type cholecalciferol (vitamin D3) 25 2,000 units PO QAM 08/23/19 02/09/24 History mcg (1,000 unit) tablet aspirin 81 mg tablet,delayed 81 mg PO QAM 12/17/19 02/09/24 History release Portable Oxygen E0431 #1 ea 07/01/23 02/09/24 Rx Wheeled Walker #1 ea 07/01/23 02/09/24 Rx acetaminophen 500 mg tablet 500 mg PO Q6H PRN Pain 10/20/23 02/09/24 History (Tylenol Extra Strength) furosemide 20 mg tablet 20 mg PO QAM #90 tabs 11/02/23 02/09/24 Rx gabapentin 300 mg capsule 300 mg PO BID PRN pain #60 caps 01/14/24 02/09/24 Rx ipratropium 0.5 mg-albuterol 3 mg 3 ml NEB QID 02/03/24 02/09/24 History (2.5 mg base)/3 mL nebulization soln methimazole 10 mg tablet 10 mg PO QAM 02/03/24 02/09/24 History tamsulosin 0.4 mg capsule 0.4 mg PO QAM 02/03/24 02/09/24 History fluticasone furoate 100 1 inh inhalation DAILY #30 ea 02/07/24 02/09/24 Rx mcg/actuation blister powder for inhalation (Arnuity Ellipta) Patient History Medical History (Updated 02/09/24 @ 15:08 by Maximus Garrido MD) Hypertension Sensorineural hearing loss (SNHL) of both ears Cor pulmonale Pulmonary hypertension Pulmonary nodule RLL Chronic kidney disease History of shingles takes gabapentin for pain Hyperthyroidism Emphysema/COPD Lymphoma (~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 Surgical History History of nasal surgery (~2014) due to CA Hx of esophagogastroduodenoscopy Hx of colonoscopy H/O varicose vein ligation Family History Father , Age 91 Renal failure Mother Breast cancer Denies family history of Ovarian cancer Prostate cancer Myocardial infarction Colorectal cancer Social History Smoking Status: Former smoker Tobacco Type: Cigarettes Age Started Using Tobacco: 18; Age Quit Using Tobacco: 61; Cigarettes Per Day: 1 PPD; Second Hand Exposure: No; Do You Dip or Chew Tobacco: No; Hx Alcohol Use: No Hx Substance Use: No Preferred Language: Slovak Communication Ability: Effective Visual Impairment: No Limitations Hearing Ability: Hard of Hearing Audio Recording Engineer Required: No Beliefs That Will Affect Care: None marital status: Current Living Situation: Spouse current occupational status: retired How many Children do You have: 1 Feels Safe at Home: Yes Safety Concerns: Feels Safe At This Time Childhood Exposure to Second-Hand Smoke: No Diet: regular caffeine: Yes Dental Care, Regularly: No Physical Activity Frequency: Does not Exercise Seatbelt Use: always Sunscreen Use: No Assistive Devices: Walker Review of Systems Review of Systems: All systems reviewed & are unremarkable except as noted in Subjective Physical Exam Constitutional: WD/WN, vitals as above Neck: trachea midline, no thyromegaly Respiratory: normal respiratory effort, lungs clear to auscultation Cardiovascular: RRR, no murmur, no edema Gastrointestinal (Abdomen): normal bowel sounds, soft, nontender, no hepatosplenomegaly Musculoskeletal: Extremities: extremities normal to inspection Skin: no rashes, warm and dry Neurologic: Nonfocal exam Lymphatic: no cervical lymphadenopathy Results & Data Results & Data Vital Signs (Past 12 Hours) Vital Signs Temp Pulse Resp BP Pulse Ox O2 Del Method 02/09/24 13:41 80 16 91 Room Air 02/09/24 13:18 90 18 160/85 H 91 Room Air 02/09/24 12:00 72 16 155/74 H 95 Room Air 02/09/24 11:30 74 16 156/74 H 94 Room Air 02/09/24 11:15 75 16 146/86 H 94 Room Air 02/09/24 11:00 74 18 148/72 H 94 Room Air 02/09/24 10:45 72 18 154/78 H 92 Room Air 02/09/24 10:30 74 16 152/86 H 92 Room Air 02/09/24 10:15 78 16 155/108 H 92 Room Air 02/09/24 10:00 75 16 171/103 H 92 Room Air 02/09/24 07:32 36.6 C 60 16 154/89 H 95 Room Air Critical Care Results & Data Vital Signs (Past 12 Hours) Vital Signs Temp Pulse Resp BP Pulse Ox O2 Del Method 02/09/24 13:41 80 16 91 Room Air 02/09/24 13:18 90 18 160/85 H 91 Room Air 02/09/24 12:00 72 16 155/74 H 95 Room Air 02/09/24 11:30 74 16 156/74 H 94 Room Air 02/09/24 11:15 75 16 146/86 H 94 Room Air 02/09/24 11:00 74 18 148/72 H 94 Room Air 02/09/24 10:45 72 18 154/78 H 92 Room Air 02/09/24 10:30 74 16 152/86 H 92 Room Air 02/09/24 10:15 78 16 155/108 H 92 Room Air 02/09/24 10:00 75 16 171/103 H 92 Room Air 02/09/24 07:32 36.6 C 60 16 154/89 H 95 Room Air Lab & Micro Results (Past 24 Hours) RBC 4.68 M/uL (4.70-6.10) L 02/09/24 WBC 5.80 K/ul (4.8-10.8) 02/09/24 Hgb 14.3 g/dl (14.0-18.0) 02/09/24 Hct 41.3 % (42.0-52.0) L 02/09/24 MCV 88.2 fL (80.0-100.0) 02/09/24 MCH 30.6 pg (25.0-34.0) 02/09/24 MCHC 34.6 g/dL (32.0-36.0) 02/09/24 RDW Standard Deviation 45.3 fL (36.4-46.3) 02/09/24 RDW Coefficient of Variation 14.1 % (11.5-14.5) 02/09/24 Plt Count 259 K/uL (130-400) 02/09/24 MPV 10.0 fL (9.4-12.4) 02/09/24 Neutrophils (%) (Auto) 68.2 % 02/09/24 Lymphocytes (%) (Auto) 19.0 % 02/09/24 Monocytes # (Auto) 0.56 K/uL (0.11-0.59) 02/09/24 Eosinophils # (Auto) 0.09 K/uL (0.00-0.50) 02/09/24 Immature Granulocyte % (Auto) 0.3 % 02/09/24 Neutrophils # (Auto) 3.96 K/uL (1.40-6.50) 02/09/24 Lymphocytes # (Auto) 1.10 K/uL (1.20-3.40) L 02/09/24 Monocytes # (Auto) 0.56 K/uL (0.11-0.59) 02/09/24 Eosinophils # (Auto) 0.09 K/uL (0.00-0.50) 02/09/24 Basophils # (Auto) 0.07 K/uL (0.00-0.20) 02/09/24 Immature Granulocyte # (Auto) 0.02 K/uL (0.01-0.20) 4 Na 134 mmol/L (136-145) L 02/09/24 K 4.1 mmol/L (3.5-5.1) 02/09/24 Cl 102 mmol/L (98-107) 02/09/24 CO2 26 mmol/L (21-32) 02/09/24 Anion Gap 6 (3-11) 02/09/24 BUN 21 mg/dl (6-23) 02/09/24 Creatinine 1.52 mg/dl (0.6-1.4) H 02/09/24 Estimated GFR ( Amer) 47.7 ml/min 02/09/24 Estimated GFR (Non-Af Amer) 41.2 ml/min 02/09/24 BUN/Creatinine Ratio 13.8 (10-20) 02/09/24 Glu 110 mg/dl (70-99(Fasting)) H 02/09/24 Ca 8.9 mg/dl (8.6-10.3) 02/09/24 Total Bilirubin 0.7 mg/dl (0.2-1.0) 02/09/24 AST 14 U/L (13-39) 02/09/24 ALT 10 U/L (7-52) 02/09/24 Alkaline Phosphatase 104 U/L (34-104) 02/09/24 TP 6.6 gm/dl (6.0-8.3) 02/09/24 Albumin 3.9 gm/dl (3.4-5.0) 02/09/24 Globulin 2.7 gm/dl (2.5-4.0) 02/09/24 Albumin/Globulin Ratio 1.4 (0.9-2) 02/09/24 Mg 2.2 mg/dl (1.7-2.4) 02/09/24 12:29 Calcium Level 8.9 mg/dl (8.6-10.3) 02/09/24 12:29 Diagnostic Findings (Past 24 Hours) Lung Biopsy CT 02/09/24 08:00 CT-guided right lung mass core biopsy INDICATION: 3.6 cm right lower lobe pleural-based lung mass with mild FDG uptake PROCEDURE: Procedure and risks were explained. Informed consent was obtained. A final timeout was completed. The patient was placed prone on the CT examination table. The right posterior thorax was prepped and draped in sterile fashion. 1% buffered lidocaine was utilized for skin anesthesia. Utilizing CT guidance, a 19-gauge coaxial needle was advanced into the right lower lobe lung mass. A 20-gauge core biopsy needle was advanced, and 4 cores were obtained and given to the pathologist for review. The coaxial needle was removed and Band-Aid applied. A small amount of bleeding was noted after removing the coaxial needle in the posterior soft tissues. Pressure and ice were applied. Postbiopsy CT scan demonstrated no evidence for pneumothorax or intramuscular soft tissue hematoma. Post procedure chest x-ray demonstrated a small right pleural effusion which corresponds to a small anterior pleural effusion on the post biopsy CT scan consistent with a hemothorax. The patient's vital signs remained stable during and after the procedure without complaints of significant chest pain or shortness of breath. A delayed CT chest with IV contrast was performed approximately 1 hour post biopsy. No active extravasation or increase in the pleural effusion was noted. Please refer to separate chest CT report dictated on the same day for further details. The referring flavorings compounder and trust clerk were notified of the above findings. The patient is being admitted for 23 hour observation. IMPRESSION: Right lower lobe lung mass core biopsy with small right hemothorax as described above. The patient continues to remain stable without symptoms and is being admitted for 23 hour observation. Performed, dictated, and signed by Baldev Motley PA-C; to be co-signed by Dr. Steven Bañuelos. Chest X-Ray 02/09/24 09:30 XR chest 1V not portable HISTORY: s/p lung biopsy- COMPARISON: Chest CT 01/18/2024. FINDINGS: No pneumothorax. Small right pleural effusion. This appears to represent a hemothorax on the same day post procedure CT. Patchy right midlung zone and bibasilar densities persist. There are low lung volumes. The heart remains enlarged. Emphysema again noted. IMPRESSION: 1. No pneumothorax. 2. However, there is a small right pleural effusion which is demonstrated to be a hemothorax on the same day post procedure CT. ACT 112: Negative or not required by law. Electronically signed by: Wilmar Lyn M.D. 02/09/2024 10:[address] 02/09/24 10:34 CT SCAN OF THE CHEST WITH IV CONTRAST CLINICAL HISTORY: Hemothorax status post lung biopsy. COMPARISON STUDY: Chest CT dated 01/18/2024. TECHNIQUE: Following the IV administration of 93 cc of Optiray 320, CT scan of the thorax was performed from the thoracic inlet to the upper abdomen. Images are reviewed in the axial, sagittal, and coronal planes. IV contrast was administered without complication. A dose lowering technique was utilized adhering to the principles of ALARA. The examination is degraded by motion artifact, as well as by streak artifact from the arms which could not be elevated above the chest. CT DOSE: 994.66 mGy.cm FINDINGS: Thyroid: Mildly enlarged and heterogeneous. Thoracic aorta: There is atherosclerotic calcification of the thoracic aorta, which is normal in caliber and demonstrates standard 3-vessel arch anatomy. No dissection is seen. Pulmonary vasculature: The pulmonary trunk is normal in caliber. There are no filling defects identified in the central pulmonary vessels to indicate pulmonary embolus. Note that this examination was not protocoled for evaluation of the pulmonary arteries. Heart: The heart is enlargement of and without pericardial effusion. The coronary arteries are densely calcified. Lungs and pleural spaces: There is moderate to advanced emphysema. No pneumothorax is identified. A small amount of hyperdense pleural fluid at the right lung base is new from previous and consistent with hemothorax. There is also a small amount of hemothorax at the anterior right lung base. No active extravasation is identified. The 3.9 cm pleural-based density in the right lower lobe is obscured. A 3.6 cm focus of round atelectasis is again seen in the left lower lung. A trace chronic thick walled pleural collection at the left lung base is unchanged. Foci of parenchymal scarring are seen throughout both lungs. Mediastinum: Prominent mediastinal lymph nodes are unchanged. Bing: Clear. Axillae: There is no axillary lymphadenopathy. Upper abdomen: Bilateral renal cysts measure up to 4.3 cm. A 6 mm nonobstructing calculus is seen in the lower pole of left kidney. There is a 1.4 cm left lobe hepatic cyst. Skeletal structures: The skeletal structures are osteopenic. Degenerative change and hyperkyphosis is noted in the thoracic spine. No lytic or blastic bony lesions are seen. 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 IMPRESSION: 1. A small volume of hyperdense pleural fluid at the right lung base is new from previous and consistent with hemothorax. There is no evidence of active extravasation at the time of examination. 2. No pneumothorax is seen. 3. Cardiomegaly and advanced emphysema. 4. A 4 cm indeterminate pleural-based density in the right lower lobe and a focus of round atelectasis in the left lower lobe are similar to previous. The right-sided density is partially obscured by hemothorax. 5. A trace chronic pleural collection at the left lung base is unchanged. 6. Left-sided nephrolithiasis. 7. Additional findings as above. ACT 112: Negative or not required by law. Electronically signed by: Steven Bañuelos M.D. 02/09/2024 11:07 AM I & O Totals 24 Hours 02/08/24 02/09/24 02/10/24 06:59 06:59 06:59 Intake Total 110 / 110 Balance 110 / 110 Cumulative 02/03/24 15:18 thru 02/09/24 14:27 Intake Total 110 Balance 110 RT Ventilator Mngmt (Last Documented) Ventilator Ordered Settings Respiratory Rate 16 02/09/24 13:41 Ventilator - PT Measurements Respiratory Rate 16 PG Care Time/CCT Total # of Minutes Spent Total Time Spent with Patient: Total time spent is greater than 50% in coordination of care (as documented) at patient's floor/unit and/or counseling patient: Coding Level of Care Code 69440 INT INP/OBS CARE 2/55MIN Diagnoses Hemothorax, postoperative J95.89; J94.[address] R93.89
[2024-02-09] MEDS: ACETAMINOPHEN 325 MG TAB PO PRN (16:07)
[2024-02-10 07:33] LABS: Basophils # (auto) 0.06 K/uL (0.00-0.20); Basophils % (auto) 0.9 %; Eosinophils # (auto) 0.31 K/uL (0.00-0.50); Eosinophils % (auto) 4.7 %; Hematocrit (blood only) 39.6 % (42.0-52.0); Hemoglobin 13.1 g/dl (14.0-18.0); Immature Granulocytes # (auto) 0.03 K/uL (0.01-0.20); Immature Granulocytes % (auto) 0.5 %; Lymphocytes # (auto) 0.45 K/uL (1.20-3.40); Lymphocytes % (auto) 6.8 %; Mean Corpuscular Hemoglobin 29.8 pg (25.0-34.0); Mean Corpuscular Hgb Conc 33.1 g/dL (32.0-36.0); Mean Corpuscular Volume 90.2 fL (80.0-100.0); Monocytes # (auto) 0.58 K/uL (0.11-0.59); Monocytes % (auto) 8.7 %; Neutrophils % (auto) 78.4 %; Platelet Count 239 K/uL (130-400); RDW Coefficient of Variation 14.3 % (11.5-14.5); RDW Standard Deviation 47.4 fL (36.4-46.3); Red Blood Count 4.39 M/uL (4.70-6.10); White Blood Count 6.63 K/ul (4.8-10.8)
[2024-02-10 07:41] LABS: Albumin Globulin Ratio 1.5 (0.9-2); Albumin Level 3.5 gm/dl (3.4-5.0); BUN Creatinine Ratio 13.5 (10-20); Bilirubin,Total 0.7 mg/dl (0.2-1.0); Calcium 8.5 mg/dl (8.6-10.3); Creatinine Clr Calc Pharmacy 33.7 ml/min; Est GFR (African American) 46.6 ml/min; Est GFR (Non-African American) 40.2 ml/min; Globulin 2.4 gm/dl (2.5-4.0); Potassium 4.3 mmol/L (3.5-5.1); Total Protein 5.9 gm/dl (6.0-8.3)
[2024-02-10 08:30] LABS: Thyroid Stimulating Hormone 54.184 uIu/ml (0.300-4.500)
[2024-02-10] MEDS: FLUTICASONE FUROATE 100MCG 14 PUFFS/INHALER INH SCH (08:38)
[2024-02-10] MEDS: TAMSULOSIN HCL 0.4 MG CAP PO SCH (08:38)
[2024-02-10] MEDS: CHOLECALCIFEROL 25 MCG (1000 UNITS) TAB PO SCH (08:38)
[2024-02-10] MEDS: FUROSEMIDE 20 MG TAB PO SCH (08:39)
[2024-02-10] MEDS: methIMAzole 5 MG TABLET PO SCH (08:39)
--- NOTE | 2024-02-10 09:25 | Pulmonology Progress Note ---
Date of Service February 10, 2024 Assessment & Plan (1) Hemothorax, postoperative: (2) Abnormal chest CT: Plan Impression: 83-year-old male with prior history of lymphoma and now with PET positive pulmonary nodule and adenopathy status post biopsy which resulted in small hemothorax. He is being observed clinically. Recommendations: 1. Hemothorax: Imaging reviewed. No significant expansion of the hematoma. Patient hemodynamically stable and without hypoxemia. Patient is stable to discharge to home with follow-up with our clinic next week with chest x-ray. 2. Await results from the biopsy. If nondiagnostic, could consider endobronchial ultrasound with transbronchial needle aspiration given the PET positive lymph nodes. This would be higher risk however we may be able to do this without general anesthesia. Thank you for allowing us to participate in the care of this pleasant patient. Pulmonary medicine will sign off at this time. Will be happy to see him back next week in the clinic with follow-up chest x-ray. Admission and Anticipated Discharge Date Admission Date: February 09, 2024 Supervising Physician Co-Signing Physician Notes Patient seen and examined. EMR reviewed. Discussed with JL. Agree with assessment plan as noted. Patient is doing well clinically. His CT scan shows minimal progression and is stable. He is not requiring oxygen. His pain is adequately controlled. Recommend he be dismissed from the hospital. He can follow-up with us in the pulmonary clinic in 1 week with a follow-up chest x-ray and will review path findings at that time. Pulmonary will sign off. Feel free to contact us with questions or concerns Subjective Patient was seen and evaluated at bedside. He reports that he feels much better today and can take deep breaths without pain or discomfort. He has been ambulating to and from the restroom without issues. He reports feeling markedly better and is anxious to be discharged home. Review of Systems Review of Systems: Unchanged from admission. Physical Exam Physical Exam: VITAL SIGNS - Vital signs and nursing notes were reviewed. GENERAL - 83-year-old male appearing his stated age who is in no acute distress. Communicates well with provider and answers questions appropriately. Hard of hearing. LUNGS - Auscultation reveals diminished breath sounds the bases. No wheezes or rales noted. CARDIAC - RRR with S1/S2. No murmur, rubs, or gallops appreciated. PSYCH - A&Ox3 and cooperates fully with examiner. Pt is very pleasant and interacts well with examiner. Results & Data Results & Data Vital Signs (Past 12 Hours) Vital Signs Temp Pulse Pulse Resp BP BP Pulse Ox 02/10/24 07:22 76 02/10/24 07:14 36.7 C 76 20 146/88 H 95 02/10/24 07:09 60 15 85 L 02/10/24 02:53 36.7 C 67 16 145/88 H 90 02/10/24 00:04 75 02/09/24 22:53 36.7 C 69 16 136/85 93 O2 Del Method 02/10/24 07:22 02/10/24 07:14 Aerosol Mask 02/10/24 07:09 Room Air 02/10/24 02:53 Room Air 02/10/24 00:04 02/09/24 22:53 Room Air PG Care Time/CCT Total # of Minutes Spent Total Time Spent with Patient: Total time spent is greater than 50% in coordination of care (as documented) at patient's floor/unit and/or counseling patient: Coding Level of Care Code 58884 SUB INP/OBS CARE 2/35MIN Diagnoses Hemothorax, postoperative J95.89; J94.[address] R93.89
[2024-02-10 09:31] LABS: T4 Free Thyroxine 0.46 ng/dl (0.61-1.60)
--- NOTE | 2024-02-10 10:26 | CT Scan Report ---
CT OF THE CHEST WITHOUT IV CONTRAST CLINICAL HISTORY: follow up hemothorax COMPARISON STUDY: Chest CT February 09, 2024. CT DOSE: 780.81 mGy.cm TECHNIQUE: Axial images of the chest were obtained without IV contrast. Images were reviewed in the axial, sagittal, and coronal planes. IV contrast was not administered for this examination. Automat ed exposure control was utilized for the study. A dose lowering technique was utilized adhering to t he principles of ALARA. FINDINGS: Prominent mediastinal lymph nodes remain unchanged. There is cardiomegaly. There is no per icardial effusion. No pneumothorax. A small chronic left pleural effusion with pleural thickening is unchanged. A small hyperdense right pleural effusion consistent with hemothorax has mildly increased in size since CT of February 09, 2024. A small amount of right anterior pleural hemorrhage has slightly decreased since prior CT. The previously described right lower lobe subpleural density is partially o bscured by the hemothorax. Left lower lobe round atelectasis is noted. There is severe emphysema. IMPRESSION: 1. Small right hemothorax, mildly increased in size since CT of February 09, 2024, as described. 2. No pneumothorax. 3. Emphysema. ACT 112: Negative or not required by law. Electronically signed by: Mihir Huynh M.D. 02/10/2024 10:25 AM
--- NOTE | 2024-02-10 16:00 | Discharge Summary ---
Date of Service February 10, 2024 Admission HPI Per Admitting Provider Pleasant 83-year-old male who came to the hospital today to undergo elective interventional radiology CT-guided biopsy of right lung nodule. Postprocedure the patient developed a small hemothorax. CAT scan was completed. It does not appear to be any pneumothorax. Patient is stable on room air. Given the hemothorax however we were notified by interventional radiology and request admission for observation overnight to ensure the hemothorax has not progressed. We have a consult with the patient's lead designer Dr. Garrido and communicated the above with him and he will follow along with us. We are obtaining some mild postprocedural labs at this point. Patient has no complaints as discussed below. He has no pain he denies shortness of breath again he is stable on room air. Principal Diagnosis acute hemothorax Discharge Exam HEENT: Normocephalic atraumatic NECK: Supple. HEART: Regular rate and rhythm No murmur. LUNGS: Essentially clear bilaterally ABDOMEN: Soft nontender EXTREMITIES: Intact, no peripheral cyanosis, clubbing or edema. NEUROLOGICAL: Cranial nerves II through XII Discharge Data Allergies Allergy/AdvReac Type Severity Reaction Status Date / Time No Known Allergies Allergy Verified 02/03/24 11:41 Consultations 02/09/24 11:42 Consult Pulmonology Routine Procedures Performed Operation Date: 02/09/24 08:[address] Scan Lung Biopsy - Chip Go PA-C Ordered Studies 02/09/24 08:00 IR biopsy lung RT CT Routine 02/09/24 10:34 CT chest with contrast [CT chest diagnostic w con] Stat 02/10/24 07:07 CT chest diagnostic wo con Routine Hospital Course (1) Acute pneumothorax: Assessment: 1. Acute hemothorax status post interventional radiology CT-guided biopsy of right lung nodule. Very stable. On room air. At this point we will do continuous pulse ox. His nebulizers are ordered as at home. Pulmonology been consulted. Appreciate input: -Hemothorax: Imaging reviewed. No significant expansion of the hematoma. Patient hemodynamically stable and without hypoxemia. Patient is stable to discharge to home with follow-up with our clinic next week with chest x-ray. -Await results from the biopsy. If nondiagnostic, could consider endobronchial ultrasound with transbronchial needle aspiration given the PET positive lymph nodes. This would be higher risk however we may be able to do this without general anesthesia. 2. Right lung nodule which has been growing and appears suspicious status post biopsy today. Biopsy pending. 3. COPD. Patient is oxygen dependent at night at 2 L. His oxygen independently during the day. There is no acute exacerbation at this time. 4. CKD stage II labs reviewed. 5. Essential hypertension continue home medications. He is on aspirin presumably for cardiac prophylaxis. 6. Pulmonary hypertension by history follows with pulmonology. 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 8. History of hyperthyroidism. 9. Mild debility. The patient typically ambulates with a rollator when outside the house inside the house he does fine. Total Time Total Time Spent Total Time Spent (In Minutes): 32 Discharge Plan Discharge Items Patient Disposition: Home - Self-Care Reason For Visit: HEMOTHORAX Discharge Diagnosis: as above Activity: Resume your previous activity Non-emergency contact: Primary Care Provider Call non-emergency contact if: your symptoms worsen, your pain is not controlled, your pain is concerning for you and your temperature is above 101.5 Follow-up/Referrals: Maximus Garrido MD [Physician] - 02/14/24 10:15 am Corby Zuniga DO [Primary Care Provider] - (Call primary care office to schedule follow up appointment.) Diet: Heart Healthy Diet Texture: Easy to Chew Addtl Attending Provider Instructions: return to ED stat if any c/o CP or SOB after dc home. No strenuous activity Xs 48hrs. resume asa 3/21. Pending Studies at Discharge: Yes Studies:: cxr @ 1147 Stand-Alone Forms: My [facility] [employer], Smoking Cessation Medications and DC Order Prescriptions: Continued (DME) Wheeled Walker [facility] [place], [place] See Rx Instructions .Route Qty: 1 0RF Rx Instructions: Rollator walker with hand brakes and seat (DME) Portable Oxygen [id number] Misc See Rx Instructions .Route Qty: 1 0RF Rx Instructions: As directed gabapentin 300 mg capsule 300 mg PO BID PRN (Reason: pain) Qty: 60 5RF Arnuity Ellipta 100 mcg/actuation blister with device 1 inh inhalation DAILY Qty: 30 11RF cholecalciferol (vitamin D3) 1,000 unit (25 mcg) tablet 2,000 units PO QAM furosemide 20 mg tablet 20 mg PO QAM Qty: 90 3RF Rx Instructions: take his lasix on Wednesday, Wed, , Wed. Hold lasix on ,,. check weight daily. take lasix on ,, if weight goes up 2lbs overnight or more than 5 pounds from his current baseline. aspirin 81 mg Tablet,Delayed Release (Dr/Ec) 81 mg PO QAM acetaminophen [Tylenol Extra Strength] 500 mg Tablet 500 mg PO Q6H PRN (Reason: Pain) ipratropium-albuterol 0.5 mg-3 mg(2.5 mg base)/3 mL solution for nebulization 3 ml NEB QID tamsulosin 0.4 mg capsule 0.4 mg PO QAM methimazole 10 mg tablet 10 mg PO QAM Discharge Orders: Discharge Order (Routine); Ordered 02/10/24 Ordered By: Jayson Jerry/Other Patient Handouts: Needle Biopsy Lung Dc Admission Data Admit Date/Time: 02/09/24 11:42 Attending Provider: Jayson Diaz Admit Provider: Nish Gilbert Primary Care Provider: Corby Zuniga Other Providers: Maximus Garrido; [facility] Other Interventions: Discharge Summary Assessment (RN) Last Done: 02/10/24 13:53 Coding Level of Care Code 65880 INP/OBS DISCH >30 MIN Diagnoses Acute pneumothorax J93.83
== END 2024-02-10 15:22 | disposition home health service (06) ==
LOC: 2N 07:14 → SUATTDRO 11:42 → 2S 13:14

== ENCOUNTER 2024-04-12 18:36 | Inpatient (IN) ==
--- NOTE | 2024-04-12 18:58 | Emergency Department Note ---
Impression & Plan Pleural effusion ADMIT ED Provider Note HPI: History obtained from patient. The patient is a 83-year-old gentleman with history of adenocarcinoma of the lung, stage III, who presents the emergency department after a fall at home. Patient states that earlier today his legs got "weak" and he fell. Patient does not have any focal complaint of pain on arrival, he denies any loss of consciousness. Patient states this occurred when he was ambulating with his walker. Patient states that he fell gently onto his right buttocks. On arrival here to the ED the patient is initially hypoxic on 2 L nasal cannula oxygen at 87%, he is otherwise hemodynamically stable. Patient states that shortness of breath seem to be worsening throughout the day today. Patient's oxygen was increased to 4 L nasal cannula with good improvement in initial hypoxia. On arrival here to the ED the patient denies any focal complaint of pain, he maintains flexion at the hips bilaterally and ambulates all 4 extremities spontaneously without issue. ROS: - Per HPI Differential Diagnosis: Intracranial hemorrhage to include subdural hematoma, rib fracture, pneumothorax, hemothorax, pneumonia, pleural effusion, pulmonary edema, amongst other potential pathologies. *Outpatient medications and allergy history reviewed. 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 Lab work shows no leukocytosis, hemoglobin is stable at 12.7, platelet count is normal, venous blood gas shows normal pH, CMP shows hyponatremia 126, creatinine is 1.55 which appears to be the patient's baseline, BNP is elevated at 1180, troponin is 23.3, I do not see any acute ischemic changes on the patient's EKG. CT imaging of the head does not show any evidence of any acute process. Chest x-ray per my interpretation shows evidence of a right-sided pleural effusion at the base of the right lung. I do not see any obvious rib fractures and the patient denies any pain in this area, he states he fell on the right buttocks however he maintains flexion at the hips bilaterally. Low suspicion for fracture of the pelvis or hips. I suspect the patient's pleural effusion and increased oxygen requirement are likely secondary to his underlying lung cancer. Patient has been stable on 4 L nasal cannula oxygen, will avoid diuresis at this time given patient's hyponatremia and current stability. I discussed the patient's presentation with the on-call hospitalist, Dr. Johnson, the patient will be admitted for hypoxia with increased oxygen demand and right- sided pleural effusion in the setting of underlying adenocarcinoma of the lung. Patient was in agreement for admission and he was placed for admission in stable condition. Consultants/Discussions held with other healthcare providers: -Hospitalist, Dr. Johnson Disposition discussion held by myself with: -Patient * CRITICAL CARE TIME: ( 35 ) minutes -Stabilization of patient with hypoxia at 87% despite being on 2 L nasal cannula oxygen requiring increased normalization, time spent at the bedside, interpretation of diagnostic studies, discussion with patient at the bedside, discussion with other healthcare providers and arrangement of admission Diagnosis: 1. Hypoxia, acute 2. Right-sided pleural effusion, acute 3. Hyponatremia, acute 4. Elevated BNP, acute 5. Elevated high-sensitivity troponin level, acute 6. History of adenocarcinoma of the lung, stage III Disposition: Admission Mike Holm DO Emergency Medicine Past Med/Surg History Problem List (Updated 04/13/24 @ 00:20 by Mike Holm DO) Pleural effusion (Acute) Adenocarcinoma of lung, stage 3 Hemothorax, postoperative Anemia Acute kidney injury Chronic kidney disease with active medical management without dialysis, stage 3 (moderate) Chronic kidney disease GI bleeding Emphysema/COPD Cor pulmonale Pulmonary hypertension Elevated liver enzymes Right heart failure Acute respiratory failure with hypoxia (Acute) Right middle lobe pneumonia (Acute) Acute hypoxemic respiratory failure Hyperthyroidism Abnormal chest CT Ventricular tachycardia Cardiomyopathy Hyponatremia Hypoxia (Acute) Elevated troponin Vitamin D deficiency Elevated TSH Postural dizziness with near syncope Cervical spondylosis Large B-cell lymphoma Stage 2 chronic kidney disease Positive colorectal cancer screening using Cologuard test Mixed conductive and sensorineural hearing loss (Acute) Postherpetic neuralgia (Chronic) HTN (hypertension) (Chronic) Medical History (Updated 04/13/24 @ 00:20 by Mike Holm DO) Hypertension Sensorineural hearing loss (SNHL) of both ears Cor pulmonale Pulmonary hypertension Pulmonary nodule RLL Chronic kidney disease History of shingles takes gabapentin for pain Hyperthyroidism Emphysema/COPD Lymphoma (~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 Surgical History History of nasal surgery (~2014) due to CA Hx of esophagogastroduodenoscopy Hx of colonoscopy H/O varicose vein ligation Family History Father , Age 91 Renal failure Mother Breast cancer Denies family history of Ovarian cancer Prostate cancer Myocardial infarction Colorectal cancer Social History Smoking Status: Former smoker Tobacco Type: Cigarettes Age Started Using Tobacco: 18; Age Quit Using Tobacco: 61; Cigarettes Per Day: 1 PPD; Second Hand Exposure: No; Do You Dip or Chew Tobacco: No; Hx Alcohol Use: No Hx Substance Use: No Preferred Language: Italian Communication Ability: Effective Visual Impairment: No Limitations Hearing Ability: Hard of Hearing Underground Miner Required: No Beliefs That Will Affect Care: None marital status: Current Living Situation: Spouse current occupational status: retired How many Children do You have: 1 Feels Safe at Home: Yes Childhood Exposure to Second-Hand Smoke: No Diet: regular caffeine: Yes Dental Care, Regularly: No Physical Activity Frequency: Does not Exercise Seatbelt Use: always Sunscreen Use: No Assistive Devices: Oxygen - at Night and Walker Allergies Allergies Allergy/AdvReac Type Severity Reaction Status Date / Time No Known Allergies Allergy Verified 04/12/24 21:49 Home Meds Home Medications Medication Instructions Recorded Confirmed cholecalciferol (vitamin D3) 25 2,000 units PO QAM 08/23/19 04/12/24 mcg (1,000 unit) tablet aspirin 81 mg tablet,delayed 81 mg PO QAM 12/17/19 04/12/24 release acetaminophen 500 mg tablet 500 mg PO Q6H PRN Pain 10/20/23 04/12/24 (Tylenol Extra Strength) ipratropium 0.5 mg-albuterol 3 mg 3 ml NEB QID PRN Shortness Of 02/03/24 04/12/24 (2.5 mg base)/3 mL nebulization Breath Or Wheezing soln methimazole 10 mg tablet 10 mg PO QAM 02/03/24 04/12/24 furosemide 20 mg tablet See Rx Instructions .Route .COMPLEX 04/12/24 04/12/24 Previous Rx's Medication Instructions Recorded Portable Oxygen #1 ea 07/01/23 Wheeled Walker #1 ea 07/01/23 gabapentin 300 mg capsule 300 mg PO BID PRN pain #60 caps 01/14/24 fluticasone furoate 100 1 inh inhalation DAILY #30 ea 02/07/24 mcg/actuation blister powder for inhalation (Arnuity Ellipta) tamsulosin 0.4 mg capsule 0.4 mg PO QAM #90 caps 03/20/24 Results & Data (ED) Vital Signs Vital Signs - 24 hr 04/12/24 18:40 04/12/24 18:49 04/12/24 18:51 Temperature 36.8 C Temperature Source Oral Pulse Rate 101 H 99 H Respiratory Rate 16 25 H Respiratory Effort / Characteristics Short of Breath Spontaneous Short of Breath Respiratory Depth Normal Normal Respiratory Pattern Regular Regular Blood Pressure 145/107 H Blood Pressure Mean 119 Pulse Oximetry 87 L 96 Oxygen Delivery Method Room Air Nasal Cannula Oxygen Flow Rate 4 Sepsis Recent Fever Within 48 Hours No Sepsis New/Unexplained Change in Mental Status No Sepsis Action Taken by Nursing No Action Required 04/12/24 19:05 04/12/24 22:46 Temperature Temperature Source Pulse Rate 101 H 115 H Respiratory Rate 18 Respiratory Effort / Characteristics Respiratory Depth Respiratory Pattern Blood Pressure Blood Pressure Mean Pulse Oximetry 97 Oxygen Delivery Method Nasal Cannula Oxygen Flow Rate 4 Sepsis Recent Fever Within 48 Hours Sepsis New/Unexplained Change in Mental Status Sepsis Action Taken by Nursing Laboratory Data 04/12/24 19:10 04/12/24 19:10 Lab Results 04/12/24 04/12/24 04/12/24 Range/Units 19:10 20:48 21:11 WBC 9.24 (4.8-10.8) K/ul RBC 4.30 L (4.70-6.10) M/uL Hgb 12.7 L (14.0-18.0) g/dl Hct 38.3 L (42.0-52.0) % MCV 89.1 (80.0-100.0) fL MCH 29.5 (25.0-34.0) pg MCHC 33.2 (32.0-36.0) g/dL RDW Std Deviation 44.8 (36.4-46.3) fL RDW Coeff of Chantal 13.7 (11.5-14.5) % Plt Count 257 (130-400) K/uL MPV 10.5 (9.4-12.4) fL Immature Gran % (Auto) 0.4 % Neut % (Auto) 87.3 % Lymph % (Auto) 3.2 % [place] % (Auto) 8.8 % Eos % (Auto) 0.1 % Baso % (Auto) 0.2 % Neut # (Auto) 8.06 H (1.40-6.50) K/uL Lymph # (Auto) 0.30 L (1.20-3.40) K/uL [place] # (Auto) 0.81 H (0.11-0.59) K/uL Eos # (Auto) 0.01 (0.00-0.50) K/uL Baso # (Auto) 0.02 (0.00-0.20) K/uL Immature Gran # (Auto) 0.04 (0.01-0.20) K/uL PT 11.3 (9.0-12.0) Seconds INR 1.0 (0.9-1.1) VBG pH 7.36 (7.36-7.41) VBG pCO2 48 (38-50) mmHg VBG pO2 34 mmHg VBG HCO3 27 mmol/L VBG O2 Saturation < 60.0 % VBG Base Excess 1.0 mEq/L Sodium 126 L (136-145) mmol/L Potassium 4.7 (3.5-5.1) mmol/L Chloride 91 L (98-107) mmol/L Carbon Dioxide 26 (21-32) mmol/L Anion Gap 9 (3-11) BUN 29 H (6-23) mg/dl Creatinine 1.55 H (0.6-1.4) mg/dl Est Cr Clr Drug Dosing 36.9 ml/min Est GFR ( Amer) 46.6 ml/min Est GFR (Non-Af Amer) 40.2 ml/min BUN/Creatinine Ratio 18.7 (10-20) Glucose 247 H (70-99(Fasting)) mg/dl Calcium 8.6 (8.6-10.3) mg/dl Total Bilirubin 0.5 (0.2-1.0) mg/dl AST 14 (13-39) U/L ALT 12 (7-52) U/L Alkaline Phosphatase 87 (34-104) U/L Troponin I High Sens 23.3 H 37.9 H D (0-20) pg/ml B-Natriuretic Peptide 1180 H (0-100) pg/ml Total Protein 6.4 (6.0-8.3) gm/dl Albumin 3.7 (3.4-5.0) gm/dl Globulin 2.7 (2.5-4.0) gm/dl Albumin/Globulin Ratio 1.4 (0.9-2) Urine Color Yellow Urine Appearance Clear (Clear) Urine pH 5.5 (4.5-7.5) Ur Specific [place] 1.011 (1.000-1.030) Urine Protein Negative (Negative) Urine Glucose (UA) 1+ H (Negative) Urine Ketones Negative (Negative) Urine Blood Negative (Negative) Urine Nitrite Negative (Negative) Urine Bilirubin Negative (Negative) Urine Urobilinogen Negative (Negative) Ur Leukocyte Esterase Negative (Negative) Administered Medications Discontinued Medications Furosemide (Furosemide Inj 20 Mg/2 Ml Vial) 20 mg IV ONE ONE Stop: 04/12/24 21:46 Last Admin: 04/12/24 22:38 Dose: 20 mg Documented By: Imaging Data Radiologist's Impression: Head CT 04/12/24 18:56 Exam(s): CT HEAD Without Contrast EXAM: CT Head Without Intravenous Contrast CLINICAL HISTORY: Reason for exam: Fall. TECHNIQUE: Axial computed tomography images of the head/brain without intravenous contrast. CTDI is 38.24 mGy and DLP is 624.41 mGy-cm. Automated exposure control was utilized for the study. A dose lowering technique was utilized adhering to the principles of ALARA. COMPARISON: None. FINDINGS: Brain: Moderate generalized brain atrophy . Decreased attenuation within the deep periventricular white matter compatible with microangiopathic disease. No hemorrhage. Ventricles: Unremarkable. No ventriculomegaly. Bones/joints: Unremarkable. No acute fracture. Soft tissues: Unremarkable. Sinuses: Unremarkable as visualized. No acute sinusitis. Mastoid air cells: Unremarkable as visualized. No mastoid effusion. IMPRESSION: Chronic changes as described with no acute intracranial hemorrhage or space-occupying lesion. Electronically signed by: Gisela German MD 04/12/24 20:[address] 04/12/24 21:17 Exam(s): CT CHEST Without Contrast EXAM: CT Chest Without Intravenous Contrast CLINICAL HISTORY: Reason for exam: fall, right pleural effusion, ?hemothorax?. TECHNIQUE: Axial computed tomography images of the chest without intravenous contrast. CTDI is 25.02 mGy and DLP is 837.84 mGy-cm. Automated exposure control was utilized for the study. A dose lowering technique was utilized adhering to the principles of ALARA. COMPARISON: 02/10/2024. FINDINGS: Lungs: Right lower lobe atelectasis. Mild ground glass opacity within the right perihilar region and right lower lobe, cannot exclude superimposed pneumonitis. Emphysematous changes involving the lung apices. Minimal linear atelectasis involving the left lung apex. Left lower lobe round density measuring approximately 2.5 cm, most compatible with round atelectasis given morphology and stable in the interval. Pleural space: Large right-sided pleural effusion, increased in size in the interval. No pneumothorax. Heart: Mild cardiomegaly with coronary artery calcifications. No significant pericardial effusion. Bones/joints: Diffuse osteopenia with multilevel degenerative disease of the spine, more significant throughout the lower thoracic spine with vacuum phenomenon. No acute fracture. No dislocation. Soft tissues: Unremarkable. Vasculature: Calcified atherosclerotic disease of aorta with no aneurysm. Lymph nodes: Unremarkable. No enlarged lymph nodes. Liver: Abdomen reveal low attenuation structure within the left liver lobe measuring 13 mm, likely cyst and stable in the interval. Left upper renal pole low-attenuation structures consistent with simple cysts, largest measuring 3.4 cm with no further follow-up imaging recommended. Remainder of the upper abdominal structures unremarkable. IMPRESSION: Interval increase in size of the right pleural effusion with right lower lobe atelectasis and groundglass opacity concerning for residual pneumonitis. Left lower lobe round atelectasis, stable in the interval. Underlying emphysematous changes, more obvious in the lung apices. Electronically signed by: Gisela German MD 04/13/24 00:00 AM Discharge Plan Visit Data Chief Complaint: Fall Stated Complaint: FALL, HYPOXIA ED Provider: Mike Holm Discharge Problem: Pleural effusion Forms Stand Alone Forms: [facility] Prescriptions Prescriptions: No Action (DME) Wheeled Walker Misc See Rx Instructions .Route Qty: 1 0RF Rx Instructions: Rollator walker with hand brakes and seat (DME) Portable Oxygen Misc See Rx Instructions .Route Qty: 1 0RF Rx Instructions: As directed gabapentin 300 mg capsule 300 mg PO BID PRN (Reason: pain) Qty: 60 5RF Arnuity Ellipta 100 mcg/actuation blister with device 1 inh inhalation DAILY Qty: 30 11RF tamsulosin 0.4 mg capsule 0.4 mg PO QAM Qty: 90 3RF cholecalciferol (vitamin D3) 1,000 unit (25 mcg) tablet 2,000 units PO QAM aspirin 81 mg Tablet,Delayed Release (Dr/Ec) 81 mg PO QAM acetaminophen [Tylenol Extra Strength] 500 mg Tablet 500 mg PO Q6H PRN (Reason: Pain) ipratropium-albuterol 0.5 mg-3 mg(2.5 mg base)/3 mL solution for nebulization 3 ml NEB QID PRN (Reason: Shortness Of Breath Or Wheezing) methimazole 10 mg tablet 10 mg PO QAM furosemide 20 mg tablet See Rx Instructions .ROUTE .COMPLEX Rx Instructions: 20 mg orally ;take his lasix on Wednesday, Wed, , Wed. Hold lasix on ,,. check weight daily. take lasix on M,W,F if weight goes up 2lbs overnight or more than 5 pounds from his current baseline. Referrals Referrals: Corby Zuniga DO [Primary Care Provider] -
[2024-04-12 19:28] LABS: HCO3 VBG 27 mmol/L; Oxygen Saturation VBG < 60.0 %; PCO2 VBG 48 mmHg (38-50); PO2 VBG 34 mmHg; pH VBG 7.36 (7.36-7.41)
[2024-04-12 19:38] LABS: Basophils # (auto) 0.02 K/uL (0.00-0.20); Basophils % (auto) 0.2 %; Eosinophils # (auto) 0.01 K/uL (0.00-0.50); Eosinophils % (auto) 0.1 %; Hematocrit (blood only) 38.3 % (42.0-52.0); Hemoglobin 12.7 g/dl (14.0-18.0); Immature Granulocytes # (auto) 0.04 K/uL (0.01-0.20); Immature Granulocytes % (auto) 0.4 %; Lymphocytes % (auto) 3.2 %; Mean Corpuscular Hemoglobin 29.5 pg (25.0-34.0); Mean Corpuscular Hgb Conc 33.2 g/dL (32.0-36.0); Mean Corpuscular Volume 89.1 fL (80.0-100.0); Mean Platelet Volume 10.5 fL (9.4-12.4); Monocytes # (auto) 0.81 K/uL (0.11-0.59); Monocytes % (auto) 8.8 %; Neutrophils # (auto) 8.06 K/uL (1.40-6.50); Neutrophils % (auto) 87.3 %; Platelet Count 257 K/uL (130-400); RDW Coefficient of Variation 13.7 % (11.5-14.5); RDW Standard Deviation 44.8 fL (36.4-46.3); White Blood Count 9.24 K/ul (4.8-10.8)
[2024-04-12 19:51] LABS: Albumin Globulin Ratio 1.4 (0.9-2); Albumin Level 3.7 gm/dl (3.4-5.0); BUN Creatinine Ratio 18.7 (10-20); Bilirubin,Total 0.5 mg/dl (0.2-1.0); Calcium 8.6 mg/dl (8.6-10.3); Creatinine Clr Calc Pharmacy 36.9 ml/min; Est GFR (African American) 46.6 ml/min; Est GFR (Non-African American) 40.2 ml/min; Globulin 2.7 gm/dl (2.5-4.0); Potassium 4.7 mmol/L (3.5-5.1); Total Protein 6.4 gm/dl (6.0-8.3)
[2024-04-12 19:58] LABS: Troponin I High Sensitivity 23.3 pg/ml (0-20)
[2024-04-12 20:01] LABS: Prothrombin Time 11.3 Seconds (9.0-12.0)
--- NOTE | 2024-04-12 20:09 | CT Scan Report ---
Exam(s): CT HEAD Without Contrast EXAM: CT Head Without Intravenous Contrast CLINICAL HISTORY: Reason for exam: Fall. TECHNIQUE: Axial computed tomography images of the head/brain without intravenous contrast. CTDI is 38.24 mGy and DLP is 624.41 mGy-cm. Automated exposure control was utilized for the study. A dose lowering technique was utilized adhering to the principles of ALARA. COMPARISON: None. FINDINGS: Brain: Moderate generalized brain atrophy . Decreased attenuation within the deep periventricular white matter compatible with microangiopathic disease. No hemorrhage. Ventricles: Unremarkable. No ventriculomegaly. Bones/joints: Unremarkable. No acute fracture. Soft tissues: Unremarkable. Sinuses: Unremarkable as visualized. No acute sinusitis. Mastoid air cells: Unremarkable as visualized. No mastoid effusion. IMPRESSION: Chronic changes as described with no acute intracranial hemorrhage or space-occupying lesion. Electronically signed by: Gisela German MD 04/12/24 20:08 PM
[2024-04-12 21:11] LABS: Appearance Urine Clear (Clear); Bilirubin Urine Negative (Negative); Blood Urine Negative (Negative); Color Urine Yellow; Glucose Urine UA 1+ (Negative); Ketones Urine Negative (Negative); Leukocyte Esterase Urine Negative (Negative); Nitrite Urine Negative (Negative); Protein Urine Negative (Negative); Specific Gravity Urine 1.011 (1.000-1.030); Urobilinogen Urine Negative (Negative); pH Urine 5.5 (4.5-7.5)
--- NOTE | 2024-04-12 21:45 | History & Physical Report ---
Date of Service April 12, 2024 Assessment & Plan (1) Pleural effusion: Plan: 83yo male with history of adenocarcinoma of the lung presenting after an uncomplicated ground level fall at home. Patient found to have a large right pleural effusion. He does not endorse new pulmonary symptoms, rather admits to progressive shortness of breath over the last year. He has a chronic cough with sputum production. Ddx to consider - CHF. Patient with elevation of troponin=23.3 and FHD=5913. He has bilateral LE edema and some weight gain (82.2kg on 02/14/24 compared to 84.8kg). Possible malignant effusion given patient's new diagnosis of adenocarcinoma. Possible hemothorax. Patient did have a small right sided hemothorax following his lung biopsy on 02/09/24. H/H is largely stable at baseline. No acute respiratory distress. Patient with adequate oxygenation now on 4L NC (he uses 2.5L at home qHS). With mild conversational dyspnea. -Admit to medical with telemetry -Continue supplemental O2 -Will given Lasix 20mg IV now then 20mg IV daily - monitor diuretic effect -Pulmonary consultation appreciated for possible thoracentesis. Patient is on ASA which is being held. No blood thinners -Check 2D echo (2) Elevated troponin: Plan: Troponin 23.3 --> 37.9. Patient denies chest pain. No acute findings on EKG. Possible demand ischemia in setting of CHF -Telemetry monitoring -Trend troponin to peak -Check 2D echo (3) Hyponatremia: Plan: Sa=533, last normal at 136 on 02/10/24 but he has been mildly low before 130-132. ?SIADH with new lung cancer vs poor intake? Asymptomatic. -Check urine and serum osmolality -Lasix given - monitor Na closely (4) Adenocarcinoma of lung, stage 3: Plan: Noted. Patient is working with Pulmonary and Radiation Oncology to establish plan of care (5) Elevated blood sugar: Plan: Patient with elevated blood sugar of 247. No history of diabetes. 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 Patient went to the bathroom then came out and reports that his legs felt tired and heavy. He sat on the [place] couch then slid off onto the floor. He reports he was unable to get up due to weakness. Patient called his nurse who then came with some friends to pick him up off the floor. They called EMS and he was brought to the ER. Patient reports that he did not fall hard. He did not injure himself or hit his head/neck/face or ribs. Patient reports baseline shortness of breath which has been worsening over the last year. He has a chronic cough productive for thick, white sputum. He also reports some worsening bilateral LE edema and feels like he's "filling up with fluid". He denies fever, chills, chest pain, abdominal pain, nausea, vomiting, diarrhea or constipation. He reports normal appetite and good oral intake. 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 Suspected to be at least stage IIIa (T2b N2 M0) but has not been formally staged - unable to obtain mediastinal LN biopsies due to risk of anesthesia. Has been seen by Pulmonary. Consideration of EBUS in the future for further diagnosis. Patient developed a small hemothorax following his lung biopsy. This was noted on CT of the chest on 02/09/24. He had a repeat CT of the chest on 02/10/24 which revealed mild increase in the size of the hemothorax. MRI of the brain obtained 02/25/24 with no evidence of metastatic disease. Allergies Allergy/AdvReac Type Severity Reaction Status Date / Time No Known Allergies Allergy Verified 04/12/24 21:49 Home Medications Medication Instructions Recorded Confirmed Type cholecalciferol (vitamin D3) 25 2,000 units PO QAM 08/23/19 04/12/24 History mcg (1,000 unit) tablet aspirin 81 mg tablet,delayed 81 mg PO QAM 12/17/19 04/12/24 History release Portable Oxygen #1 ea 07/01/23 02/11/24 Rx Wheeled Walker #1 ea 07/01/23 02/11/24 Rx acetaminophen 500 mg tablet 500 mg PO Q6H PRN Pain 10/20/23 04/12/24 History (Tylenol Extra Strength) gabapentin 300 mg capsule 300 mg PO BID PRN pain #60 caps 01/14/24 04/12/24 Rx ipratropium 0.5 mg-albuterol 3 mg 3 ml NEB QID PRN Shortness Of 02/03/24 04/12/24 History (2.5 mg base)/3 mL nebulization Breath Or Wheezing soln methimazole 10 mg tablet 10 mg PO QAM 02/03/24 04/12/24 History fluticasone furoate 100 1 inh inhalation DAILY #30 ea 02/07/24 04/12/24 Rx mcg/actuation blister powder for inhalation (Arnuity Ellipta) tamsulosin 0.4 mg capsule 0.4 mg PO QAM #90 caps 03/20/24 04/12/24 Rx furosemide 20 mg tablet See Rx Instructions .Route .COMPLEX 04/12/24 04/12/24 History Past Med/Surg History Problem List (Updated 04/13/24 @ 03:38 by Marielos Johnson DO) Elevated blood sugar Pleural effusion (Acute) Adenocarcinoma of lung, stage 3 Hemothorax, postoperative Anemia Acute kidney injury Chronic kidney disease with active medical management without dialysis, stage 3 (moderate) Chronic kidney disease GI bleeding Emphysema/COPD Cor pulmonale Pulmonary hypertension Elevated liver enzymes Right heart failure Acute respiratory failure with hypoxia (Acute) Right middle lobe pneumonia (Acute) Acute hypoxemic respiratory failure Hyperthyroidism Abnormal chest CT Ventricular tachycardia Cardiomyopathy Hyponatremia Hypoxia (Acute) Elevated troponin Vitamin D deficiency Elevated TSH Postural dizziness with near syncope Cervical spondylosis Large B-cell lymphoma Stage 2 chronic kidney disease Positive colorectal cancer screening using Cologuard test Mixed conductive and sensorineural hearing loss (Acute) Postherpetic neuralgia (Chronic) HTN (hypertension) (Chronic) Medical History Hypertension Sensorineural hearing loss (SNHL) of both ears Cor pulmonale Pulmonary hypertension Pulmonary nodule RLL Chronic kidney disease History of shingles takes gabapentin for pain Hyperthyroidism Emphysema/COPD Lymphoma (~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 Surgical History History of nasal surgery (~2014) due to CA Hx of esophagogastroduodenoscopy Hx of colonoscopy H/O varicose vein ligation Family History Father , Age 91 Renal failure Mother Breast cancer Denies family history of Ovarian cancer Prostate cancer Myocardial infarction Colorectal cancer Social History Smoking Status: Former smoker Tobacco Type: Cigarettes Age Started Using Tobacco: 18; Age Quit Using Tobacco: 61; Cigarettes Per Day: 1 PPD; Second Hand Exposure: No; Do You Dip or Chew Tobacco: No; Hx Alcohol Use: No Hx Substance Use: No Preferred Language: Citizen Of [place] Communication Ability: Effective Visual Impairment: No Limitations Hearing Ability: Hard of Hearing Geotechnical Engineering Technician Required: No Beliefs That Will Affect Care: None marital status: Current Living Situation: Spouse current occupational status: retired How many Children do You have: 1 Feels Safe at Home: Yes Childhood Exposure to Second-Hand Smoke: No Diet: regular caffeine: Yes Dental Care, Regularly: No Physical Activity Frequency: Does not Exercise Seatbelt Use: always Sunscreen Use: No Assistive Devices: Oxygen - at Night and Walker Review of Systems Review of Systems: All systems reviewed & are unremarkable except as noted in HPI & below Physical Exam Physical Exam: General: patient resting comfortably, NAD, non-toxic in appearance, AA&O x 4 Skin: warm, dry, intact, no rashes or lesions HEENT: NC/AT, PERRL, EOMI, anicteric sclera, conjunctiva without injection, external ear normal to inspection and nontender, nares patent, moist mucus membranes, dentition intact, no oropharyngeal lesions, neck supple, trachea midline, no LAD, no thyromegaly, no JVD Heart: +S1/S2, regular with ectopy, no m/r/g Lungs: patient with mild conversational dyspnea, coughing during our encounter and expectorating white mucus, normal chest wall mechanics, equal air entry bilaterally, diffuse crackles, diminished breath sounds in right base, no wheeze Abd: +BS, soft, NT/ND, no masses/organomegaly/ascites Ext: warm, 2+ pulses in UE/LE bilaterally, no clubbing/cyanosis, 1+ pitting edema of bilateral LE Neuro: nonfocal, patient AA&O x 4, speech intact, no facial droop, moving all extremities on command with equal strength 5/5 Results & Data Results & Data Vital Signs (Past 12 Hours) Vital Signs Temp Pulse Resp BP Pulse Ox O2 Del Method O2 Flow Rate 04/12/24 19:05 101 H 18 97 Nasal Cannula 4 04/12/24 18:51 36.8 C 99 H 25 H 145/107 H 96 Nasal Cannula 4 04/12/24 18:49 101 H 04/12/24 18:40 16 87 L Room Air Laboratory Results Laboratory Results WBC 9.24 K/ul (4.8-10.8) 04/12/24 19:10 RBC 4.30 M/uL (4.70-6.10) L 04/12/24 19:10 Hgb 12.7 g/dl (14.0-18.0) L 04/12/24 19:10 Hct 38.3 % (42.0-52.0) L 04/12/24 19:10 MCV 89.1 fL (80.0-100.0) 04/12/24 19:10 MCH 29.5 pg (25.0-34.0) 04/12/24 19:10 MCHC 33.2 g/dL (32.0-36.0) 04/12/24 19:10 RDW Std Deviation 44.8 fL (36.4-46.3) 04/12/24 19:10 RDW Coeff of Chantal 13.7 % (11.5-14.5) 04/12/24 19:10 Plt Count 257 K/uL (130-400) 04/12/24 19:10 MPV 10.5 fL (9.4-12.4) 04/12/24 19:10 Immature Gran % (Auto) 0.4 % 04/12/24 19:10 Neut % (Auto) 87.3 % 04/12/24 19:10 Lymph % (Auto) 3.2 % 04/12/24 19:10 [place] % (Auto) 8.8 % 04/12/24 19:10 Eos % (Auto) 0.1 % 04/12/24 19:10 Baso % (Auto) 0.2 % 04/12/24 19:10 Neut # (Auto) 8.06 K/uL (1.40-6.50) H 04/12/24 19:10 Lymph # (Auto) 0.30 K/uL (1.20-3.40) L 04/12/24 19:10 [place] # (Auto) 0.81 K/uL (0.11-0.59) H 04/12/24 19:10 Eos # (Auto) 0.01 K/uL (0.00-0.50) 04/12/24 19:10 Baso # (Auto) 0.02 K/uL (0.00-0.20) 04/12/24 19:10 Immature Gran # (Auto) 0.04 K/uL (0.01-0.20) 04/12/24 19:10 PT 11.3 Seconds (9.0-12.0) 04/12/24 19:10 INR 1.0 (0.9-1.1) 04/12/24 19:10 VBG pH 7.36 (7.36-7.41) 04/12/24 19:10 VBG pCO2 48 mmHg (38-50) 04/12/24 19:10 VBG pO2 34 mmHg 04/12/24 19:10 VBG HCO3 27 mmol/L 04/12/24 19:10 VBG O2 Saturation < 60.0 % 04/12/24 19:10 VBG Base Excess 1.0 mEq/L 04/12/24 19:10 Sodium 126 mmol/L (136-145) L 04/12/24 19:10 Potassium 4.7 mmol/L (3.5-5.1) 04/12/24 19:10 Chloride 91 mmol/L (98-107) L 04/12/24 19:10 Carbon Dioxide 26 mmol/L (21-32) 04/12/24 19:10 Anion Gap 9 (3-11) 04/12/24 19:10 BUN 29 mg/dl (6-23) H 04/12/24 19:10 Creatinine 1.55 mg/dl (0.6-1.4) H 04/12/24 19:10 Est Cr Clr Drug Dosing 36.9 ml/min 04/12/24 19:10 Est GFR ( Amer) 46.6 ml/min 04/12/24 19:10 Est GFR (Non-Af Amer) 40.2 ml/min 04/12/24 19:10 BUN/Creatinine Ratio 18.7 (10-20) 04/12/24 19:10 Glucose 247 mg/dl (70-99(Fasting)) H 04/12/24 19:10 Osmolality 283 mOsm/kg (280-300) 04/12/24 19:10 Calcium 8.6 mg/dl (8.6-10.3) 04/12/24 19:10 Phosphorus 3.9 mg/dl (2.5-4.9) 04/12/24 21:11 Magnesium 2.1 mg/dl (1.7-2.4) 04/12/24 21:11 Total Bilirubin 0.5 mg/dl (0.2-1.0) 04/12/24 19:10 AST 14 U/L (13-39) 04/12/24 19:10 ALT 12 U/L (7-52) 04/12/24 19:10 Alkaline Phosphatase 87 U/L (34-104) 04/12/24 19:10 Troponin I High Sens 37.9 pg/ml (0-20) H D 04/12/24 21:11 B-Natriuretic Peptide 1180 pg/ml (0-100) H 04/12/24 19:10 Total Protein 6.4 gm/dl (6.0-8.3) 04/12/24 19:10 Albumin 3.7 gm/dl (3.4-5.0) 04/12/24 19:10 Globulin 2.7 gm/dl (2.5-4.0) 04/12/24 19:10 Albumin/Globulin Ratio 1.4 (0.9-2) 04/12/24 19:10 Urine Color Yellow 04/12/24 20:48 Urine Appearance Clear (Clear) 04/12/24 20:48 Urine pH 5.5 (4.5-7.5) 04/12/24 20:48 Ur Specific [place] 1.011 (1.000-1.030) 04/12/24 20:48 Urine Protein Negative (Negative) 04/12/24 20:48 Urine Glucose (UA) 1+ (Negative) H 04/12/24 20:48 Urine Ketones Negative (Negative) 04/12/24 20:48 Urine Blood Negative (Negative) 04/12/24 20:48 Urine Nitrite Negative (Negative) 04/12/24 20:48 Urine Bilirubin Negative (Negative) 04/12/24 20:48 Urine Urobilinogen Negative (Negative) 04/12/24 20:48 Ur Leukocyte Esterase Negative (Negative) 04/12/24 20:[address] 04/12/24 18:56 Exam(s): CT HEAD Without Contrast EXAM: CT Head Without Intravenous Contrast CLINICAL HISTORY: Reason for exam: Fall. TECHNIQUE: Axial computed tomography images of the head/brain without intravenous contrast. CTDI is 38.24 mGy and DLP is 624.41 mGy-cm. Automated exposure control was utilized for the study. A dose lowering technique was utilized adhering to the principles of ALARA. COMPARISON: None. FINDINGS: Brain: Moderate generalized brain atrophy . Decreased attenuation within the deep periventricular white matter compatible with microangiopathic disease. No hemorrhage. Ventricles: Unremarkable. No ventriculomegaly. Bones/joints: Unremarkable. No acute fracture. Soft tissues: Unremarkable. Sinuses: Unremarkable as visualized. No acute sinusitis. Mastoid air cells: Unremarkable as visualized. No mastoid effusion. IMPRESSION: Chronic changes as described with no acute intracranial hemorrhage or space-occupying lesion. Electronically signed by: Gisela German MD 04/12/24 20:[address] 04/12/24 21:17 Exam(s): CT CHEST Without Contrast EXAM: CT Chest Without Intravenous Contrast CLINICAL HISTORY: Reason for exam: fall, right pleural effusion, ?hemothorax?. TECHNIQUE: Axial computed tomography images of the chest without intravenous contrast. CTDI is 25.02 mGy and DLP is 837.84 mGy-cm. Automated exposure control was utilized for the study. A dose lowering technique was utilized adhering to the principles of ALARA. COMPARISON: 02/10/2024. FINDINGS: Lungs: Right lower lobe atelectasis. Mild ground glass opacity within the right perihilar region and right lower lobe, cannot exclude superimposed pneumonitis. Emphysematous changes involving the lung apices. Minimal linear atelectasis involving the left lung apex. Left lower lobe round density measuring approximately 2.5 cm, most compatible with round atelectasis given morphology and stable in the interval. Pleural space: Large right-sided pleural effusion, increased in size in the interval. No pneumothorax. Heart: Mild cardiomegaly with coronary artery calcifications. No significant pericardial effusion. Bones/joints: Diffuse osteopenia with multilevel degenerative disease of the spine, more significant throughout the lower thoracic spine with vacuum phenomenon. No acute fracture. No dislocation. Soft tissues: Unremarkable. Vasculature: Calcified atherosclerotic disease of aorta with no aneurysm. Lymph nodes: Unremarkable. No enlarged lymph nodes. Liver: Abdomen reveal low attenuation structure within the left liver lobe measuring 13 mm, likely cyst and stable in the interval. Left upper renal pole low-attenuation structures consistent with simple cysts, largest measuring 3.4 cm with no further follow-up imaging recommended. Remainder of the upper abdominal structures unremarkable. IMPRESSION: Interval increase in size of the right pleural effusion with right lower lobe atelectasis and groundglass opacity concerning for residual pneumonitis. Left lower lobe round atelectasis, stable in the interval. Underlying emphysematous changes, more obvious in the lung apices. Electronically signed by: Gisela German MD 04/13/24 00:00 AM ECG Additional Comments: EKG per my interpretation with SR at 99bpm, ectopic beats noted, LAFB, no acute ischemic changes Code Status & VTE Plan VTE Prophylaxis Plan VTE Prophylaxis will be ordered: Yes PG Care Time/CCT Total # of Minutes Spent Total Time Spent with Patient: Total time spent is greater than 50% in coordination of care (as documented) at patient's floor/unit and/or counseling patient: Coding Level of Care Code 33976 INT INP/OBS CARE 3/75MIN Diagnoses Pleural effusion J90 Elevated troponin R77.8 Hyponatremia E87.1 Adenocarcinoma of lung, stage 3 C34.90 Elevated blood sugar R73.9
[2024-04-12 21:53] LABS: Troponin I High Sensitivity 37.9 pg/ml (0-20)
[2024-04-12] MEDS: FUROSEMIDE INJ 20 MG/2 ML VIAL IV ONE (22:38)
--- NOTE | 2024-04-13 | CT Scan Report ---
Exam(s): CT CHEST Without Contrast EXAM: CT Chest Without Intravenous Contrast CLINICAL HISTORY: Reason for exam: fall, right pleural effusion, ?hemothorax?. TECHNIQUE: Axial computed tomography images of the chest without intravenous contrast. CTDI is 25.02 mGy and DLP is 837.84 mGy-cm. Automated exposure control was utilized for the study. A dose lowering technique was utilized adhering to the principles of ALARA. COMPARISON: 02/10/2024. FINDINGS: Lungs: Right lower lobe atelectasis. Mild ground glass opacity within the right perihilar region and right lower lobe, cannot exclude superimposed pneumonitis. Emphysematous changes involving the lung apices. Minimal linear atelectasis involving the left lung apex. Left lower lobe round density measuring approximately 2.5 cm, most compatible with round atelectasis given morphology and stable in the interval. Pleural space: Large right-sided pleural effusion, increased in size in the interval. No pneumothorax. Heart: Mild cardiomegaly with coronary artery calcifications. No significant pericardial effusion. Bones/joints: Diffuse osteopenia with multilevel degenerative disease of the spine, more significant throughout the lower thoracic spine with vacuum phenomenon. No acute fracture. No dislocation. Soft tissues: Unremarkable. Vasculature: Calcified atherosclerotic disease of aorta with no aneurysm. Lymph nodes: Unremarkable. No enlarged lymph nodes. Liver: Abdomen reveal low attenuation structure within the left liver lobe measuring 13 mm, likely cyst and stable in the interval. Left upper renal pole low-attenuation structures consistent with simple cysts, largest measuring 3.4 cm with no further follow-up imaging recommended. Remainder of the upper abdominal structures unremarkable. IMPRESSION: Interval increase in size of the right pleural effusion with right lower lobe atelectasis and groundglass opacity concerning for residual pneumonitis. Left lower lobe round atelectasis, stable in the interval. Underlying emphysematous changes, more obvious in the lung apices. Electronically signed by: Gisela German MD 04/13/24 00:00 AM
[2024-04-13] MEDS ORDERED: ALBUTEROL 0.5% NEB SOLN 2.5 MG/0.5 ML VIAL NEB PRN (01:03)
[2024-04-13] MEDS ORDERED: ALBUT/IPRATROP 3MG/0.5MG NEB 3 ML VIAL NEB PRN (01:03)
[2024-04-13] MEDS ORDERED: ONDANSETRON INJ 2 MG/ML 2 ML VIAL IV PRN (01:03)
[2024-04-13 01:29] LABS: Magnesium 2.1 mg/dl (1.7-2.4); Phosphorus 3.9 mg/dl (2.5-4.9)
[2024-04-13] MEDS ORDERED: GLUCOSE 10 TAB/TUBE PO PRN (03:39)
[2024-04-13] MEDS ORDERED: DEXTROSE 50% 50 ML SYRINGE IV PRN (03:39)
[2024-04-13] MEDS ORDERED: GLUCOSE 40% GEL 15 GM TUBE PO PRN (03:39)
[2024-04-13] MEDS ORDERED: GLUCAGON FOR INJ 1 MG VIAL SQ PRN (03:39)
[2024-04-13] MEDS ORDERED: CARBOHYDRATES FOR HYPOGLYCEMIA PO PRN (03:39)
[2024-04-13 05:13] LABS: Hematocrit (blood only) 37.4 % (42.0-52.0); Hemoglobin 12.7 g/dl (14.0-18.0); Mean Corpuscular Hemoglobin 29.4 pg (25.0-34.0); Mean Corpuscular Volume 86.6 fL (80.0-100.0); Mean Platelet Volume 10.5 fL (9.4-12.4); Platelet Count 249 K/uL (130-400); RDW Coefficient of Variation 13.5 % (11.5-14.5); RDW Standard Deviation 42.3 fL (36.4-46.3); Red Blood Count 4.32 M/uL (4.70-6.10); White Blood Count 6.82 K/ul (4.8-10.8)
[2024-04-13 05:28] LABS: Calcium 8.4 mg/dl (8.6-10.3); Est GFR (African American) 49.7 ml/min; Est GFR (Non-African American) 42.9 ml/min; Potassium 3.9 mmol/L (3.5-5.1)
[2024-04-13 05:37] LABS: Troponin I High Sensitivity 49.9 pg/ml (0-20)
--- NOTE | 2024-04-13 06:50 | XRay Report ---
XR chest 1V portable CLINICAL HISTORY: Dyspnea TECHNIQUE: Single frontal radiograph of the chest was obtained. Comparison: Comparison is made to chest radiograph 02/14/2024 FINDINGS: No lines and tubes are seen. The cardiomediastinal silhouette is normal. Moderate right and small lef t airspace opacities. Moderate right and small left pleural effusions. IMPRESSION: Moderate right and small left pleural effusions with associated atelectasis. ACT 112: Negative or not required by law. Electronically signed by: Asher Davidson M.D. 04/13/2024 6:49 AM
[2024-04-13 07:38] LABS: Estimated Average Glucose 137 mg/dl; Hemoglobin A1C 6.4 % (4.5-5.6)
--- NOTE | 2024-04-13 08:37 | XRay Report ---
XR chest 1V portable CLINICAL HISTORY: assess right sided effusion TECHNIQUE: Single frontal radiograph of the chest was obtained. Comparison: Comparison is made to chest radiograph 04/12/2024 FINDINGS: No lines and tubes are seen. Calcified aortic knob is seen. Stable bilateral lower lung predominant o pacities. Moderate right and small left pleural effusions are unchanged. IMPRESSION: Stable pleural effusions and associated atelectasis. ACT 112: Negative or not required by law. Electronically signed by: Asher Davidson M.D. 04/13/2024 8:35 AM
[2024-04-13] MEDS ORDERED: FUROSEMIDE INJ 20 MG/2 ML VIAL IV SCH (09:00)
[2024-04-13] MEDS: INSULIN ASPART PER UNIT CHARGE SC SCH (09:36)
[2024-04-13] MEDS: GABAPENTIN 300 MG CAP PO PRN (09:37)
[2024-04-13] MEDS: FLUTICASONE FUROATE 100MCG 14 PUFFS/INHALER INH SCH (09:37)
[2024-04-13] MEDS: FUROSEMIDE INJ 20 MG/2 ML VIAL IV SCH (09:37)
[2024-04-13] MEDS: methIMAzole 5 MG TABLET PO SCH (09:38)
[2024-04-13] MEDS: TAMSULOSIN HCL 0.4 MG CAP PO SCH (09:38)
--- NOTE | 2024-04-13 10:20 | Hospitalist Progress Note ---
Date of Service April 13, 2024 Assessment & Plan (1) Pleural effusion: Plan: 83yo male with history of adenocarcinoma of the lung presenting after an uncomplicated ground level fall at home. Patient found to have a large right pleural effusion. This could be an incidental finding, and not related to the fall Effusion likely from CHF given elevated BNP and legs swellings and also weight gain -Continue supplemental O2 -Will given Lasix 20mg IV now then 20mg IV daily - monitor diuretic effect -Pulmonary consultation appreciated for possible thoracentesis. Patient is on ASA which is being held. No blood thinners -Check 2D echo (2) Elevated troponin: Plan: Troponin 23.3 --> 37.9. Patient denies chest pain. No acute findings on EKG. Possible demand ischemia in setting of CHF -Telemetry monitoring -Trend troponin to peak -Check 2D echo (3) Hyponatremia: Plan: Improved (4) Adenocarcinoma of lung, stage 3: Plan: Noted. Patient is working with Pulmonary and Radiation Oncology to establish plan of care (5) Elevated blood sugar: Plan: Patient with elevated blood sugar of 247. No history of diabetes. -Check Hgb A1C -ISS Plan await pul recs Admission and Anticipated Discharge Date Admission Date: April 12, 2024 Subjective Patient seen and examined today, states shortness of breath is at baseline. Denies any chest pain. Review of Systems Review of Systems: All systems reviewed are negative, apart from the ones contained in the history. Physical Exam Physical Exam: The patient is awake, alert and oriented 3, well developed and well nourished, normocephalic and atraumatic, lying in bed and in no acute distress. HEENT--PERRL, EOMI, mucous membranes and oropharynx mildly dry Neck--supple. No JVD. No bruits. Thyroid normal, trachea midline, no adenopathy. Heart--normal S1 and S2. No murmurs, rubs or gallops. Lungs--reduced air entry on auscultation Abdomen--normal bowel sounds and soft. Extremities--no cyanosis or clubbing. No edema. Dermatologic--normal skin turgor, normal color, no abnormal lymph nodes, no rash. Neurologic--cranial nerves II through XII grossly intact. Rheumatologic--normal range of motion. Psychiatric--normal affect. Results & Data Results & Data Vital Signs (Past 12 Hours) Vital Signs Pulse Resp BP Pulse Ox 04/13/24 04:00 112 H 17 137/104 H 95 04/13/24 03:00 82 16 131/95 97 04/13/24 01:00 96 H 18 147/93 H 04/13/24 00:00 108 H 21 04/12/24 23:00 105 H 22 04/12/24 22:46 115 H PG Care Time/CCT Total # of Minutes Spent Total Time Spent with Patient: Total time spent is greater than 50% in coordination of care (as documented) at patient's floor/unit and/or counseling patient: Coding Level of Care Code 92601 SUB INP/OBS CARE 2/35MIN Diagnoses Pleural effusion J90 Elevated troponin R77.8 Hyponatremia E87.1 Adenocarcinoma of lung, stage 3 C34.90 Elevated blood sugar R73.9 Time Spent (min) 35
--- NOTE | 2024-04-13 12:27 | Pulmonary Consultation ---
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 He was not completely staged as EBUS was never performed. However the PET scan did demonstrate moderate FDG uptake within N1 and N2 nodes. He presents now with generalized weakness and a fall. Has not been seen by medical oncology. Recommendations: 1. Pleural effusion: Patient will undergo diagnostic and therapeutic thoracentesis on the right. Fluid will be sent for microbiologic as well as histologic analysis. Follow-up chest x-ray postthoracentesis. 2. Lung cancer: The patient needs to get established with Dr. Abebe in the outpatient setting. Perhaps getting the oncology nurse navigator to assist with that while the patient is an inpatient might be appropriate. 3. Declining functional status. This will need to be taken into account when considering any additional invasive procedures and when discussing with potential therapies might be appropriate for this 83-year-old gentleman. Will continue to follow with you. Feel free to contact us with questions or concerns History of Present Illness Attending Physician: Del Sanchez MD History of Present Illness Asked by hospitalist to assist in evaluation management of this patient with known lung cancer and pleural effusion. History is obtained from discussion with patient as well as review of the electronic medical record. Patient is an 83-year-old male who I follow in the outpatient setting. He has a history of pulmonary hypertension and recently diagnosed lung cancer. His CT- guided biopsy in January showed mucinous adenocarcinoma. The patient was supposed to follow-up with Dr. Abebe at [facility] oncology with whom he was established. He reportedly had an appointment but states that he no showed that appointment and never rescheduled it. He is continued to decline in the outpatient setting. He had a ground-level fall off of the couch due to weakness which prompted his evaluation in the emergency room. Chest x-ray demonstrated an enlarging right-sided pleural effusion which prompted pulmonary consultation. The patient has endorsed some shortness of breath which has been slightly progressive. Of note his prior CT-guided biopsy did result in a small hemothorax on the right which was observed for 24 hours and the patient was discharged home. Patient does not report any fevers chills or night sweats. He has not had significant chest pain. Allergies Allergy/AdvReac Type Severity Reaction Status Date / Time No Known Allergies Allergy Verified 04/12/24 21:49 Home Medications Medication Instructions Recorded Confirmed Type cholecalciferol (vitamin D3) 25 2,000 units PO QAM 08/23/19 04/12/24 History mcg (1,000 unit) tablet aspirin 81 mg tablet,delayed 81 mg PO QAM 12/17/19 04/12/24 History release Portable Oxygen #1 ea 07/01/23 02/11/24 Rx Wheeled Walker #1 ea 07/01/23 02/11/24 Rx acetaminophen 500 mg tablet 500 mg PO Q6H PRN Pain 10/20/23 04/12/24 History (Tylenol Extra Strength) gabapentin 300 mg capsule 300 mg PO BID PRN pain #60 caps 01/14/24 04/12/24 Rx ipratropium 0.5 mg-albuterol 3 mg 3 ml NEB QID PRN Shortness Of 02/03/24 04/12/24 History (2.5 mg base)/3 mL nebulization Breath Or Wheezing soln methimazole 10 mg tablet 10 mg PO QAM 02/03/24 04/12/24 History fluticasone furoate 100 1 inh inhalation DAILY #30 ea 02/07/24 04/12/24 Rx mcg/actuation blister powder for inhalation (Arnuity Ellipta) tamsulosin 0.4 mg capsule 0.4 mg PO QAM #90 caps 03/20/24 04/12/24 Rx furosemide 20 mg tablet See Rx Instructions .Route .COMPLEX 04/12/24 04/12/24 History Patient History Medical History Hypertension Sensorineural hearing loss (SNHL) of both ears Cor pulmonale Pulmonary hypertension Pulmonary nodule RLL Chronic kidney disease History of shingles takes gabapentin for pain Hyperthyroidism Emphysema/COPD Lymphoma (~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 Surgical History History of nasal surgery (~2014) due to CA Hx of esophagogastroduodenoscopy Hx of colonoscopy H/O varicose vein ligation Family History Father , Age 91 Renal failure Mother Breast cancer Denies family history of Ovarian cancer Prostate cancer Myocardial infarction Colorectal cancer Social History Smoking Status: Former smoker Tobacco Type: Cigarettes Age Started Using Tobacco: 18; Age Quit Using Tobacco: 61; Cigarettes Per Day: 1 PPD; Second Hand Exposure: No; Do You Dip or Chew Tobacco: No; Tobacco Cessation Education Requested by Patient: No Hx Alcohol Use: No Hx Substance Use: No Preferred Language: [place] Communication Ability: Effective Visual Impairment: No Limitations Hearing Ability: Hard of Hearing Coat Examiner Required: No Beliefs That Will Affect Care: None marital status: Current Living Situation: Spouse current occupational status: retired How many Children do You have: 1 Feels Safe at Home: Yes Safety Concerns: Feels Safe At This Time Childhood Exposure to Second-Hand Smoke: No Diet: regular caffeine: Yes Dental Care, Regularly: No Physical Activity Frequency: Does not Exercise Seatbelt Use: always Sunscreen Use: No Assistive Devices: Oxygen - at Night and Walker Review of Systems Review of Systems: Please refer to admission H&P. No additions or deletions Physical Exam Physical Exam: The patient is awake, alert and oriented 3, well developed and well nourished, normocephalic and atraumatic, lying in bed and in no acute distress. HEENT--PERRL, EOMI, mucous membranes and oropharynx mildly dry Neck--supple. No JVD. No bruits. Thyroid normal, trachea midline, no adenopathy. Heart--normal S1 and S2. No murmurs, rubs or gallops. Lungs--reduced air entry on auscultation Abdomen--normal bowel sounds and soft. Extremities--no cyanosis or clubbing. No edema. Dermatologic--normal skin turgor, normal color, no abnormal lymph nodes, no rash. Neurologic--cranial nerves II through XII grossly intact. Rheumatologic--normal range of motion. Psychiatric--normal affect. Results & Data Results & Data Vital Signs (Past 12 Hours) Vital Signs Pulse Resp BP Pulse Ox 04/13/24 04:00 112 H 17 137/104 H 95 04/13/24 03:00 82 16 131/95 97 04/13/24 01:00 96 H 18 147/93 H Critical Care Results & Data Vital Signs (Past 12 Hours) Vital Signs Pulse Resp BP Pulse Ox 04/13/24 04:00 112 H 17 137/104 H 95 04/13/24 03:00 82 16 131/95 97 04/13/24 01:00 96 H 18 147/93 H Lab & Micro Results (Past 24 Hours) RBC 4.32 M/uL (4.70-6.10) L 04/13/24 WBC 6.82 K/ul (4.8-10.8) 04/13/24 Hgb 12.7 g/dl (14.0-18.0) L 04/13/24 Hct 37.4 % (42.0-52.0) L 04/13/24 MCV 86.6 fL (80.0-100.0) 04/13/24 MCH 29.4 pg (25.0-34.0) 04/13/24 MCHC 34.0 g/dL (32.0-36.0) 04/13/24 RDW Standard Deviation 42.3 fL (36.4-46.3) 04/13/24 RDW Coefficient of Variation 13.5 % (11.5-14.5) 04/13/24 Plt Count 249 K/uL (130-400) 04/13/24 MPV 10.5 fL (9.4-12.4) 04/13/24 Neutrophils (%) (Auto) 87.3 % 04/12/24 Lymphocytes (%) (Auto) 3.2 % 04/12/24 Monocytes # (Auto) 0.81 K/uL (0.11-0.59) H 04/12/24 Eosinophils # (Auto) 0.01 K/uL (0.00-0.50) 04/12/24 Immature Granulocyte % (Auto) 0.4 % 04/12/24 Neutrophils # (Auto) 8.06 K/uL (1.40-6.50) H 04/12/24 Lymphocytes # (Auto) 0.30 K/uL (1.20-3.40) L 04/12/24 Monocytes # (Auto) 0.81 K/uL (0.11-0.59) H 04/12/24 Eosinophils # (Auto) 0.01 K/uL (0.00-0.50) 04/12/24 Basophils # (Auto) 0.02 K/uL (0.00-0.20) 04/12/24 Immature Granulocyte # (Auto) 0.04 K/uL (0.01-0.20) 4 Na 132 mmol/L (136-145) L 04/13/24 K 3.9 mmol/L (3.5-5.1) 04/13/24 Cl 95 mmol/L (98-107) L 04/13/24 CO2 28 mmol/L (21-32) 04/13/24 Anion Gap 9 (3-11) 04/13/24 BUN 28 mg/dl (6-23) H 04/13/24 Creatinine 1.47 mg/dl (0.6-1.4) H 04/13/24 Estimated GFR ( Amer) 49.7 ml/min 04/13/24 Estimated GFR (Non-Af Amer) 42.9 ml/min 04/13/24 BUN/Creatinine Ratio 19.0 (10-20) 04/13/24 Glu 86 mg/dl (70-99(Fasting)) 04/13/24 Ca 8.4 mg/dl (8.6-10.3) L 04/13/24 Phosphorus Level 3.9 mg/dl (2.5-4.9) 04/12/24 Total Bilirubin 0.5 mg/dl (0.2-1.0) 04/12/24 AST 14 U/L (13-39) 04/12/24 ALT 12 U/L (7-52) 04/12/24 Alkaline Phosphatase 87 U/L (34-104) 04/12/24 TP 6.4 gm/dl (6.0-8.3) 04/12/24 Albumin 3.7 gm/dl (3.4-5.0) 04/12/24 Globulin 2.7 gm/dl (2.5-4.0) 04/12/24 Albumin/Globulin Ratio 1.4 (0.9-2) 04/12/24 Mg 2.1 mg/dl (1.7-2.4) 04/12/24 21:11 Calcium Level 8.4 mg/dl (8.6-10.3) L 04/13/24 04:04 Prothromb Time International Ratio 1.0 (0.9-1.1) 04/12/24 19:1 0 Venous Blood pH 7.36 (7.36-7.41) 04/12/24 19:10 Venous Blood Partial Pressure CO2 48 mmHg (38-50) 04/12/24 19:1 0 Venous Blood Partial Pressure O2 34 mmHg 04/12/24 19:10 Venous Blood HCO3 27 mmol/L 04/12/24 19:10 Venous Blood Base Excess 1.0 mEq/L 04/12/24 19:10 Venous Blood Oxygen Saturation < 60.0 % 04/12/24 19:10 Diagnostic Findings (Past 24 Hours) Chest X-Ray 04/12/24 18:49 XR chest 1V portable CLINICAL HISTORY: Dyspnea TECHNIQUE: Single frontal radiograph of the chest was obtained. Comparison: Comparison is made to chest radiograph 02/14/2024 FINDINGS: No lines and tubes are seen. The cardiomediastinal silhouette is normal. Moderate right and small left airspace opacities. Moderate right and small left pleural effusions. IMPRESSION: Moderate right and small left pleural effusions with associated atelectasis. ACT 112: Negative or not required by law. Electronically signed by: Asher Davidson M.D. 04/13/2024 6:[address] 04/12/24 18:56 Exam(s): CT HEAD Without Contrast EXAM: CT Head Without Intravenous Contrast CLINICAL HISTORY: Reason for exam: Fall. TECHNIQUE: Axial computed tomography images of the head/brain without intravenous contrast. CTDI is 38.24 mGy and DLP is 624.41 mGy-cm. Automated exposure control was utilized for the study. A dose lowering technique was utilized adhering to the principles of ALARA. COMPARISON: None. FINDINGS: Brain: Moderate generalized brain atrophy . Decreased attenuation within the deep periventricular white matter compatible with microangiopathic disease. No hemorrhage. Ventricles: Unremarkable. No ventriculomegaly. Bones/joints: Unremarkable. No acute fracture. Soft tissues: Unremarkable. Sinuses: Unremarkable as visualized. No acute sinusitis. Mastoid air cells: Unremarkable as visualized. No mastoid effusion. IMPRESSION: Chronic changes as described with no acute intracranial hemorrhage or space-occupying lesion. Electronically signed by: Gisela German MD 04/12/24 20:[address] 04/12/24 21:17 Exam(s): CT CHEST Without Contrast EXAM: CT Chest Without Intravenous Contrast CLINICAL HISTORY: Reason for exam: fall, right pleural effusion, ?hemothorax?. TECHNIQUE: Axial computed tomography images of the chest without intravenous contrast. CTDI is 25.02 mGy and DLP is 837.84 mGy-cm. Automated exposure control was utilized for the study. A dose lowering technique was utilized adhering to the principles of ALARA. COMPARISON: 02/10/2024. FINDINGS: Lungs: Right lower lobe atelectasis. Mild ground glass opacity within the right perihilar region and right lower lobe, cannot exclude superimposed pneumonitis. Emphysematous changes involving the lung apices. Minimal linear atelectasis involving the left lung apex. Left lower lobe round density measuring approximately 2.5 cm, most compatible with round atelectasis given morphology and stable in the interval. Pleural space: Large right-sided pleural effusion, increased in size in the interval. No pneumothorax. Heart: Mild cardiomegaly with coronary artery calcifications. No significant pericardial effusion. Bones/joints: Diffuse osteopenia with multilevel degenerative disease of the spine, more significant throughout the lower thoracic spine with vacuum phenomenon. No acute fracture. No dislocation. Soft tissues: Unremarkable. Vasculature: Calcified atherosclerotic disease of aorta with no aneurysm. Lymph nodes: Unremarkable. No enlarged lymph nodes. Liver: Abdomen reveal low attenuation structure within the left liver lobe measuring 13 mm, likely cyst and stable in the interval. Left upper renal pole low-attenuation structures consistent with simple cysts, largest measuring 3.4 cm with no further follow-up imaging recommended. Remainder of the upper abdominal structures unremarkable. IMPRESSION: Interval increase in size of the right pleural effusion with right lower lobe atelectasis and groundglass opacity concerning for residual pneumonitis. Left lower lobe round atelectasis, stable in the interval. Underlying emphysematous changes, more obvious in the lung apices. Electronically signed by: Gisela German MD 04/13/24 00:00 AM Chest X-Ray 04/13/24 08:00 XR chest 1V portable CLINICAL HISTORY: assess right sided effusion TECHNIQUE: Single frontal radiograph of the chest was obtained. Comparison: Comparison is made to chest radiograph 04/12/2024 FINDINGS: No lines and tubes are seen. Calcified aortic knob is seen. Stable bilateral lower lung predominant opacities. Moderate right and small left pleural effusions are unchanged. IMPRESSION: Stable pleural effusions and associated atelectasis. ACT 112: Negative or not required by law. Electronically signed by: Asher Davidson M.D. 04/13/2024 8:35 AM I & O Totals 24 Hours 04/12/24 04/13/24 04/14/24 06:59 06:59 06:59 Output Total 1025 / 1025 2099 / 2099 Balance -1025 / -1025 -2100 / -2099 Cumulative 04/12/24 18:25 thru 04/13/24 12:19 Output Total 3125 Balance -3125 RT Ventilator Mngmt (Last Documented) Ventilator Ordered Settings Respiratory Rate 17 04/13/24 04:00 Ventilator - PT Measurements Respiratory Rate 17 PG Care Time/CCT Total # of Minutes Spent Total Time Spent with Patient: Total time spent is greater than 50% in coordination of care (as documented) at patient's floor/unit and/or counseling patient: Coding Level of Care Code 34312 INT INP/OBS CARE 3/75MIN Diagnoses Pleural effusion J90 Adenocarcinoma of lung, stage 3 C34.90
--- NOTE | 2024-04-13 12:33 | Procedure Note ---
Procedure Note Date of Service April 13, 2024 Note Procedure: Diagnostic therapeutic ultrasound-guided catheter thoracentesis, right Business Travel Consultant: Dr. Maximus Garrido Indication: Pleural effusion Consent: Signed by patient and verified with timeout prior to procedure Anesthesia: 8 mL's 1% lidocaine without epinephrine local. Procedure: Consent was verified and timeout performed. Appropriate imaging studies were reviewed prior to the procedure. Patient was placed in a seated position and limited thoracic ultrasound was performed of the right chest. A moderate-sized effusion on the right was noted with compressive atelectasis. Site appropriate for thoracentesis was selected. The skin was prepped and draped in normal sterile fashion. Lidocaine was used for local analgesia. Fluid was aspirated via the finder needle. A small skin zeenat was made with the scalpel and the cat heter over the needle apparatus was advanced over the rib into the pleural space. Using the syringe one-way valve system, a total of 9 mL's of blood fluid was removed. Procedure was terminated due to patient complaining of chest discomfort. The catheter was removed and observed to be intact. A sterile dressing was applied. Post procedure chest x-ray was ordered. Fluid was sent for cytology, cell count differential, Gram stain and culture, AFB stain and culture, glucose, LDH, total protein, and pH. The patient tolerated the procedure well without obvious complication Coding CPT Codes Pulmonary/Thoracic - Pulmonary and Thoracic: 51862 Thoracentesis w imaging ([id number]) [facility] [place] Codes (Charges) Pulmonary/Thoracic Procedure 1: Pulmonary and Thoracic: 29167 Thoracentesis w imaging
--- NOTE | 2024-04-13 12:52 | XRay Report ---
XR chest 1V portable CLINICAL HISTORY: S/P Thoracentesis TECHNIQUE: Single frontal radiograph of the chest was obtained. Comparison: Comparison is made to chest radiograph 04/13/2024 FINDINGS: No lines and tubes are seen. Cardiomegaly is noted. The aortic arch is calcified. The lungs are clear . Small right pleural effusion is decreased in size from prior exam. Stable trace left pleural effusi on. No pneumothorax. IMPRESSION: Interval decrease in right pleural effusion with no pneumothorax. Stable trace left pleural effusion. ACT 112: Negative or not required by law. Electronically signed by: Asher Davidson M.D. 04/13/2024 12:50 PM
[2024-04-13 13:10] LABS: Total Protein Pleural Fluid 3.6 gm/dl
[2024-04-13 14:04] LABS: Appearance Pleural Fluid Cloudy; Color Pleural Fluid Red; RBC Pleural Fluid Auto 41000 /uL; Source Pleural Fluid Right Lung; WBC Pleural Fluid Auto 1996 /uL
[2024-04-13 14:06] LABS: Lymphocytes, Fluid 61 %; Mono,Macrophage,Mesothelial 38 %; Neutrophils, Fluid 1 %
--- NOTE | 2024-04-13 14:19 | XCELERA ---
[id number]
--- NOTE | 2024-04-13 15:19 | Electrocardiogram Report ---
Test Reason : Blood Pressure : / mmHG Vent. Rate : 099 BPM Atrial Rate : 099 BPM P-R Int : 162 ms QRS Dur : 082 ms QT Int : 344 ms P-R-T Axes : 025 -60 -12 degrees QTc Int : 441 ms Sinus rhythm with Premature supraventricular complexes and with occasional Premature ventricular comp lexes Left anterior fascicular block T wave abnormality, consider anterior ischemia Abnormal ECG When compared with ECG of 20-OCT-2023 18:54, Left anterior fascicular block is now Present T wave inversion more evident in Anterior leads Confirmed by Hu West ([id number]) on 04/13/2024 3:19:51 PM Referred By: REFERRED SELF Confirmed By:Hu West
[2024-04-13] MEDS: DICLOFENAC SOD 1% GEL 100 GM TUBE EXT PRN (19:45)
[2024-04-13] MEDS ORDERED: TEMAZEPAM 7.5 MG CAPSULE PO PRN (23:47)
--- OUTSIDE RECORDS SUMMARY | 2024-04-14 00:44 | External Medical Summary | Summary of Care ---
Author Name Unknown Organization [facility] Address [address] [place] [address] Phone [phone] Care Team Providers Care Car Packer Name Role Phone Maximus Garrido MD Primary Care Provider [phone] Encounter Details Date Type Department Care Team ([facility] st Contact Info) Description 03/22/2024 11:30 AM EDT [facility] [address] [place] [address] Kylah Blanton, RN [address] [place] [address] Lung cancer (HCC)* Allergies Active Allergy Reactions Criticality Noted Date Comments Nkda 06/28/2006 documented as of this encounter (statuses as of 03/22/2024) Medications Medication Sig Dispensed Refills Start Date End Date Status Aspirin 81 MG Tablet Take 1 Tablet by mouth in the morning. 0 Active Acetaminophen (TYLENOL) 325 MG CAPS Take by mouth. 0 Active Gabapentin 600 MG Oral Tablet (Neurontin) Take 1 Tablet by mouth 2 times a day as needed. 0 Active Vitamin D3 50 MCG (1999) Oral Capsule Take 1 Capsule by mouth in the morning. 0 Active Furosemide 20 MG Oral Tablet (Lasix) Take 1 Tablet by mouth. Take on Wednesday, Wednesday, and Wednesday 0 Active oxygen IN GAS Use as directed. 0 Activ e Arnuity Ellipta 100 MCG/ACT Inhalation Aerosol Powder Breath Activated Inhale 1 Puff by mouth in the morning. Rinse mouth after use. 0 Active Gabapentin 600 MG TabletIndications :Postherpetic neuralgia Take 1 Tab by mouth 3 times a day. 90 Tab 6 03/31/2016 03/22/2024 Discontinued Balm 3 1000 MG CAPS Take by mouth. 0 03/22/2024 Discontinu ed Levothyroxine Sodium 100 MCG Oral Tablet (Synthroid) Take 1 Tablet by mouth daily first thing in the morning. (at least 30 min prior to breakfast or other meds) 0 03/22/2024 Discontinued Gabapentin 4 % TOP cream 0.6 g in the morning and 0.6 g before bedtime. 0 02/20/2020 03/22/2024 Discontinued documented as of this encounter (statuses as of 03/22/2024) Active Problems Problem Noted Date Diagnosed Date Post herpetic neuralgia 01/26/2020 History of lymphoma 10/09/2019 Encounter for antineoplastic chemotherapy 2014 ADVANCE DIRECTIVE INFORMATION 10/06/2007 Overview: No, Advance Directive brochure given to patient. LYMPHOMAS NEC MULT 06/28/2006 RENAL & URETERAL DIS NOS 06/28/2006 documented as of this encounter (statuses as of 03/22/2024) Social History Tobacco Use Types Packs/Day Years Used Date Smoking Tobacco: Former Cigarettes 1 40 0 03/20/1965 - 03/20/2005 Smokeless Tobacco: Never Alcohol Use Standard Drinks/Week Comments Yes 7 (1 standard drink = 0.6 oz pur e alcohol) 2-3 beers per day Hunger Vital Sign Answer Date Recorded Within the past 12 months, y ou worried that your food would run out before you got the money to buy more. Never true 06/07/20 23 Within the past 12 months, t he food you bought just didn't last and you didn't have money to get more. Never true 06/07/2023 Sex and Gender Information Value Date Recorded Sex Assigned at Not on file Gender Identity Not on file Sexual Orientation Not on file Job Start Date Occupation Industry Not on file Not on file Not on file documented as of this encounter Last Filed Vital Signs Vital Sign Reading Time Taken Comments Blood Pressure 130/80 03/22/2024 12:18 PM EDT Pulse 95 03/22/2024 12:18 PM EDT Temperature 36.9 C (98.4 F) 03/22/2024 12:18 PM E DT Respiratory Rate 18 03/22/2024 12:18 PM EDT Oxygen Saturation 94% 03/22/2024 12:18 PM EDT 2.5Lnc Inhaled Oxygen Concentration - - Weight - - Height - - Body Mass Index - - documented in this encounter Progress Notes * Kylah Blanton RN - 03/22/2024 12:08 PM EDT [facility] Paster SupervisorAutomotive Assembler Visit Date: 03/22/2024 Time: 12:08 PM Name: Sohan Gaytan : 1940 Situation: Enrollment Background: Limited information available on chart at this time, [place] [facility] [place] and [facility] States has dx of COPD and was recently dx with lung cancer, has upcoming visit with Dr. Abebe, Oncologist Plan is for him to have port placed and start chemo Assessment: Arrived to see Pt has significantly declined since my last visit with her Now appears frail Agreed to enrollment today sitting in recliner wearing o2 2lnc Rolator next to recliner occasional pause to talk able to hear bronchiectasis with respirations Sob with minimal activity Sleeping in recliner at night states dx with lung cancer in recent months after having biopsy at [facility] (does not recall when) states plan is for port placement followed by chemo Manages own meds Has not been using Arnuity b/c ''I have to rinse my mouth out and I don't always get to the bathroom'' Agreed to keep on vanity in bathroom and use daily while in bathroom, placed on vanity for him during visit with dementia ''She attempts to cook'' Agreed to [facility] referral for possible arrangement of MOW Problems/Symptoms: Review of Systems Constitutional: Positive for activity change (decreased) and fatigue. HENT: Positive for hearing loss (deaf R ear). Negative for trouble swallowing. Eyes: Negative. Respiratory: Positive for cough (occasional, clear to white sputum) and shortness of breath (with minimal exertion). Negative for chest tightness and wheezing. Cardiovascular: Positive for leg swelling (+1 b/l le non-pitting). Negative for chest pain and palpitations. Gastrointestinal: Negative. Endocrine: Negative. Genitourinary: Negative. Musculoskeletal: Positive for arthralgias and gait problem. Skin: Negative. Allergic/Immunologic: Negative. Neurological: Positive for weakness. Hematological: Negative. Psychiatric/Behavioral: Negative. Physical Exam: BP 130/80 | Pulse 95 | Temp 36.9 C (98.4 F) | Resp 18 | SpO2 94% Comment: 2.5Lnc Pain 2 Physical Exam Constitutional: Appearance: Normal appearance. HENT: Head: Normocephalic and atraumatic. Mouth/Throat: Mouth: Mucous membranes are moist. Cardiovascular: Rate and Rhythm: Rhythm irregular. Heart sounds: Murmur heard. Pulmonary: Effort: Pulmonary effort is normal. Breath sounds: Rales (LLL) present. Abdominal: General: Bowel sounds are normal. Palpations: Abdomen is soft. Musculoskeletal: Right lower leg: Edema present. Left lower leg: Edema present. Skin: General: Skin is warm and dry. Capillary Refill: Capillary refill takes less than 2 seconds. Coloration: Skin is pale. Neurological: Mental Status: He is alert and oriented to person, place, and time. Mental status is at baseline. Gait: Gait abnormal. [facility] Completed this Visit: Yes. [facility]: Reason Completed: Enrollment [facility] ([facility]) Fall Risk Assessment Tool Age 65+: Yes (03/22/241299) Diagnosis (3 or more co-existing): Yes (03/22/241299) Prior history of falls within 3 months: No (03/22/241299) Incontinence: No (03/22/241299) Visual impairment: No (03/22/241299) Impaired functional mobility: Yes (03/22/241299) Environmental hazards: Yes (03/22/241299) Poly Pharmacy (4 or more prescriptions - any type): Yes (03/22/241299) Pain affecting level of function: Yes (03/22/241299) Cognitive impairment: No (03/22/241299) Score - a score of 4 or more is considered at risk for fallin (03/22/241299) [facility] Interventions: Fall education provided, reviewed/provided Fall brochure Ensured home safety check completed/to be completed by [facility] Att[facility] Treatment/Plan: Unable to weigh d/t poor mobility/fall risk O2 2lnc continuously (Lukas's) Step son takes to apts Independent with meds Keep inhaler in bathroom, rinse mouth after use [facility] referral 03/22/24 - MOW?, Home Safety Assessment, coordinate with Jae to see if pt and have other needs Pt's is also a pt (has dementia) 03/22/24 - states plan is to have port placed and start chemo for lung cancer, treatment through [facility] Interventions Provided: Specialty Referral Placed Reinforced current Plan of Care, including self-management and medication regimen Updated Exacerbation Plan Patient's Goals of Care: Port placement chemotherapy Stay in home Patient's 'Red Flags': Increased weakness Increased sob Increased coughing VU of Plan, provides VTB of Red Flags Patient Needs to Remember: Call [place] with red flags Referrals Needed: [facility] Follow Up: Is there cellular connectivity/connectivity in the home? Yes Does the patient have internet in the home? No Patient encouraged to call the intake phone number for all urgent but not emergent issues. Scheduled to follow up with patient: [facility] visit within one week - order placed for visit 03/30 with ABIMAEL Larson RN 03/22/2024 12:08 PM documented in this encounter Plan of Treatment Upcoming Encounters Date Type Department Care Team (Late st Contact Info) Description 03/30/2024 1:00 PM EDT Home Visit [facility] [place], [facility] [address] [address] Chema Coulter PA-C [address] [place] [phone] 04/13/2024 3:15 PM EDT Office Visit Hematology/Oncology [facility] [place] [address] [facility] [place] [phone] Ephraim Abebe MD [address] [facility] [place] [address] 04/25/2024 4:00 PM EDT [facility] Visit [facility] [place], [facility] [address] [place] [address] Kylah Blanton RN [address] [place] [address] Health Maintenance Due Date Last Done Comments Depression Screening 1952 DTaP,Tdap,and Td Vaccines (1 - Tdap) 1957 Pneumococcal Vaccine: 65+ Years (1 of 1 - PCV) 2003 COVID-19 Vaccine (1 - 2022-2 4 season) 2023 TSH 05/31/2024 05/31/2023 Influenza Vaccine (FLU shot) (Season Ended) 2024 Zoster Vaccines Completed 02/26/2021, 10/29/2020 GARDASIL-HPV IMMUNIZATION [...] this encounter Medical Devices Implanted Type Area Banking Services Officer Device Identifier Shelf Expiration Date Model / Serial / Lot Bard Powerport Single Mercedes Implanted:Qty: 1 on 07/24/2015 by Malina Moreno MD at OR [facility] Left: Chest CR BARD : ACCESS SYSTEMS 11/23/2016 [id number] / / [id number] documented as of this encounter Visit Diagnoses Diagnosis Lung cancer (HCC)- Primary Malignant neoplasm of bronchus and lung, unspecified site documented in this encounter Care Teams Car Packer Relationship Specialty Start Date End Date Maximus Garrido MD [address] [facility] [address] [place] [address] PCP - General Pulmonary Diseases 03/22/24 documented as of this encounter"
--- OUTSIDE RECORDS SUMMARY | 2024-04-14 00:44 | External Medical Summary | Summary of Care ---
Author Name Unknown Organization [facility] Address [address] [place] [address] Phone [phone] Care Team Providers Care Load Dispatcher Local Name Role Phone Corby Zuniga DO Primary Care Provi gerda Encounter Details Date Type Department Care Team (Late st Contact Info) Description 02/28/2024 Population Health External Data Unspecified Department Allergies Active Allergy Reactions Criticality Noted Date Comments Nkda 06/28/2006 documented as of this encounter (statuses as of 02/28/2024) Medications Medication Sig Dispensed Refills Start Date End Date Status Gabapentin 600 MG TabletIndications:Po stherpetic neuralgia Take 1 Tab by mouth 3 times a day. 90 Tab 6 03/31/2016 Active Additional Information Patient taking differently:600 mg Oral TID(AM/NOON/HS),Indications: takes 4 times a day, Reported on 01/25/2018 Aspirin 81 MG Tablet Take 1 Tablet by mouth in the morning. 0 Active [place] 3 1000 MG CAPS Take by mouth. 0 Active Acetaminophen (TYLENOL) 325 MG CAPS Take by mouth. 0 Active Levothyroxine Sodium 100 MCG Oral Tablet (Synthroid) Take 1 Tablet by mouth daily first thing in the morning. (at least 30 min prior to breakfast or other meds) 0 Active documented as of this encounter (statuses as of 02/28/2024) Active Problems Problem Noted Date Diagnosed Date Post herpetic neuralgia 01/26/2020 History of lymphoma 10/09/2019 Encounter for antineoplastic chemotherapy 2014 ADVANCE DIRECTIVE INFORMATION 10/06/2007 Overview: No, Advance Directive brochure given to patient. LYMPHOMAS NEC MULT 06/28/2006 RENAL & URETERAL DIS NOS 06/28/2006 documented as of this encounter (statuses as of 02/28/2024) Social History Tobacco Use Types Packs/Day Years [...] Care Team (Late st Contact Info) Description 04/13/2024 3:15 PM EDT Office Visit Hematology/Oncology [facility] [address] [place] [phone] Ephraim Abebe MD [address] [place] [address] Health Maintenance Due Date Last Done Comments Depression Screening 1950 DTaP,Tdap,and Td Vaccines (1 - Tdap) 1957 Pneumococcal Vaccine: 65+ Years (1 of 1 - PCV) 2003 COVID-19 Vaccine ( - 2022-2 4 season) 2023 TSH 05/31/2024 [...] this encounter Medical Devices Implanted Type Area Tour Production Supervisor Device Identifier Shelf Expiration Date Model / Serial / Lot Bard Powerport Single Mercedes Implanted:Qty: 1 on 07/24/2015 by Malina Moreno MD at OR [facility] Left: Chest CR BARD : ACCESS SYSTEMS 11/23/2016 [id number] / / [id number] documented as of this encounter Care Teams Load Dispatcher Local Relationship Specialty Start Date End Date Corby Zuniga DO [address] [place] [address] [place] [address] PCP - General Family Medicine 07/11/20 documented as of this encounter
--- OUTSIDE RECORDS SUMMARY | 2024-04-14 00:44 | External Medical Summary | Summary of Care ---
Author Name Unknown Organization [facility] Address [address] [place] [address] Phone [phone] Care Team Providers Care Plastics Factory Worker Name Role Phone DudleyjulesCorby ward Primary Care Provi gerda Reason for Visit * Reason Onset Date Comments [facility]: Screening 02/29/2024 Encounter Details Date Type Department Care Team ([facility] st Contact Info) Description 02/29/2024 Telephone [facility], [facility] [address] [place] [address] [facility], Nurse [facility] [address] [place] [address] [facility]: Screening Allergies Active Allergy Reactions Criticality Noted Date Comments Nkda 06/28/2006 documented as of this encounter (statuses as of 02/29/2024) Medications Medication Sig Dispensed Refills Start Date End Date Status Gabapentin 600 MG TabletIndications:Po stherpetic neuralgia Take 1 Tab by mouth 3 times a day. 90 Tab 6 03/31/2016 Active Additional Information Patient taking differently:600 mg Oral TID(AM/NOON/HS),Indications: takes 4 times a day, Reported on 01/25/2018 Aspirin 81 MG Tablet Take 1 Tablet by mouth in the morning. 0 Active [place] 3 1000 MG CAPS Take by mouth. 0 Active Acetaminophen (TYLENOL) 325 MG CAPS Take by mouth. 0 Active Levothyroxine Sodium 100 MCG Oral Tablet (Synthroid) Take 1 Tablet by mouth daily first thing in the morning. (at least 30 min prior to breakfast or other meds) 0 Active documented as of this encounter (statuses as of 02/29/2024) Active Problems Problem Noted Date Diagnosed Date Post herpetic neuralgia 01/26/2020 History of lymphoma 10/09/2019 Encounter for antineoplastic chemotherapy 2014 ADVANCE DIRECTIVE INFORMATION 10/06/2007 Overview: No, Advance Directive brochure given to patient. LYMPHOMAS NEC MULT 06/28/2006 RENAL & URETERAL DIS NOS 06/28/2006 documented as of this encounter (statuses as of 02/29/2024) Social History Tobacco Use Types Packs/Day Years [...] on file documented as of this encounter Miscellaneous Notes * Telephone Encounter - Purnima Dennison LPN - 02/29/2024 9:28 AM EDT Sohan Gaytan was referred as a potential candidate for enrollment for [facility]. A review of this chart was completed and: Sohan does not meet criteria for enrollment into [facility]. Referral Source: Monthly Proactive Eligibility List Criteria for Ineligibility: Not Located in Service Area Referring care team was notified via : [employer] communication Does not have the chronic conditions for [facility] documented in this encounter Plan of Treatment Upcoming Encounters Date Type Department Care Team (Late st Contact Info) Description 04/13/2024 3:15 PM EDT Office Visit Hematology/Oncology [facility] [address] [place] [phone] Ephraim Abebe MD [address] [place] [address] Health Maintenance Due Date Last Done Comments [...] this encounter Medical Devices Implanted Type Area Steam Service Inspector Device Identifier Shelf Expiration Date Model / Serial / Lot Bard Powerport Single Mercedes Implanted:Qty: 1 on 07/24/2015 by Malina Moreno MD at OR [facility] Left: Chest CR BARD : ACCESS SYSTEMS 11/23/2016 [id number] / / [id number] documented as of this encounter Care Teams Plastics Factory Worker Relationship Specialty Start Date End Date Corby Zuniga DO [address] [place] [address] [place] [address] PCP - General Family Medicine 07/11/20 documented as of this encounter
--- OUTSIDE RECORDS SUMMARY | 2024-04-14 00:44 | External Medical Summary | Summary of Care ---
Author Name Unknown Organization [facility] Address [address] [place] [address] Phone [phone] Care Team Providers Care Pnp Name Role Phone Maximus Garrido MD Primary Care Provider [phone] Encounter Details Date Type Department Care Team ([facility] st Contact Info) Description 03/30/2024 1:00 PM EDT Home Visit [facility], [facility] [address] [place] [address] Chema Coulter PA-C [address] [place] [address] Adenocarcinoma of right lung (HCC)*; Pulmonary emphysema, unspecified emphysema type (HCC); Chronic right-sided heart failure (HCC); Stage 3 chronic kidney disease, unspecified whether stage 3a or 3b CKD (HCC); Primary pulmonary hypertension (HCC); 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 0 Active Acetaminophen (TYLENOL) 325 MG CAPS Take by mouth. 0 Active Gabapentin 600 MG Oral Tablet (Neurontin) Take 1 Tablet by mouth 2 times a day as needed. 0 Active Vitamin D3 50 MCG (1999 UT) Oral Capsule Take 1 Capsule by mouth in the morning. 0 Active oxygen IN GAS Use as directed. 0 Activ e Arnuity Ellipta 100 MCG/ACT Inhalation Aerosol Powder Breath Activated Inhale 1 Puff by mouth in the morning. Rinse mouth after use. 0 Active Furosemide 20 MG Oral Tablet (Lasix) Take 1 Tablet by mouth in the morning. 0 03/30/2024 Active methIMAzole 10 MG Oral Tablet Take 1 Tablet by mouth in the morning. with food.. 0 03/30/2024 Active Gabapentin 300 MG Oral Capsule (Neurontin) Take 1 Capsule by mouth in the morning and 1 Capsule before bedtime. 0 03/30/2024 Active Ipratropium-Albut garcia 0.5-2.5 (3) MG/3ML Inhalation Solution (Duoneb) Inhale 3 mL via nebulizer every 4 hours as needed for Shortness of Breath. 90 mL 2 03/30/2024 Active Furosemide 20 MG Oral Tablet (Lasix) Take 1 Tablet by mouth. Take on Wednesday, Wednesday, and Wednesday 0 03/30/2024 Discontinued (Refill) documented as of this encounter (statuses as of 03/30/2024) Active Problems Problem Noted Date Diagnosed Date Stage 3 chronic kidney disease 03/30/2024 Primary pulmonary hypertension 03/30/2024 Adenocarcinoma of right lung 03/30/2024 Overview: S/p CT guided biopsy Suspect at least stage 3a (T2b, N2, M0) Unable to fully assess mediastinal lymph nodes as pulmonary htn prohibitive risk for anesthesia Last Assessment & Plan: Oncology appt next week Plans to start chemo No evidence of metastatic disease noted on recent brain MRI Diffuse large B-cell sofy/s ystemic lymphoma with skin involvement 03/30/2024 Overview: Oct 12, 2013 Entered By: ROCK SAMANO PA-C Comment: see note in scan 04/11/13- Wolfe -found 05/31/06 w supraclaviNov 2012 Entered By: ROCK SAMANO PA-C Comment: swelling & FNA done showing tx Rituxan for stage 11 s/p extNov 2012 Entered By: ROCK SAMANO PA-C Comment: beam rad when nodes returned -most recent tx for lymphomaNov 2012 Entered By: ROCK SAMANO PA-C Comment: scalp soft tissue mass-EBR -stable -now will only get scansNov 2012 Entered By: ROCK SAMANO PA-C Comment: if dz progression Last Assessment & Plan: Completed last chemo treatment nov 2015 Emphysema/COPD 03/30/2024 Last Assessment & Plan: "RED FLAG" COPD symptoms: Increased dyspnea on exertion ("I can't walk to the kitchen or up the stairs without coughing and wheezing", "My chest feels tight any time I move") Cough ("I get a different kind of cough than what I' have every day") Wheezing ("You can hear the whistling across the room") Medication Regimen Other: ICS Remote Patient Monitoring Vendor: No Connected RPM Device(s): Traditional Pulse Ox Self-Management plan Prednisone 40mg daily for 5 days Rx Begin wearing supplemental oxygen continuously until symptoms return to baseline Exacerbation plan Solumedrol 40mg IM/IV Chest Xray Additional Comments: Encouraged compliance with inhaler If unable to locate nebulizer, new order can be placed for equipment. Will order duoneb solution to have on hand. Hyperthyroidism 03/30/2024 Right heart failure 03/30/2024 Last Assessment & Plan: Continue lasix 20mg daily Encouraged leg elevation for swelling DNR (do not resuscitate) 03/30/2024 History of lymphoma 10/09/2019 Encounter for antineoplastic chemotherapy 2014 ADVANCE DIRECTIVE INFORMATION 10/06/2007 Overview: No, Advance Directive brochure given to patient. LYMPHOMAS NEC MULT 06/28/2006 RENAL & URETERAL DIS NOS 06/28/2006 documented as of this encounter (statuses as of 03/30/2024) Resolved Problems Problem Noted Date Diagnosed Date Resolved Date Post herpetic neuralgia 01/26/2020 05/0 07/2024 documented as of this encounter (statuses as of 03/30/2024) Social History Tobacco Use Types Packs/Day Years [...] on file documented as of this encounter Progress Notes * Chema Coulter PA-C - 03/30/2024 1:37 PM EDT Images from the original note were not included. [facility] at Home Problem Oriented Charting Provider Visit Date: 03/30/2024 Time: 1:[address] [facility] Sub-Program: No data was found Assessment and Plan #1 Adenocarcinoma of right lung (HCC) (Primary) Overview: S/p CT guided biopsy Suspect at least stage 3a (T2b, N2, M0) Unable to fully assess mediastinal lymph nodes as pulmonary htn prohibitive risk for anesthesia Assessment & Plan: Oncology appt next week Plans to start chemo No evidence of metastatic disease noted on recent brain MRI #2 Pulmonary emphysema, unspecified emphysema type (HCC) Assessment & Plan: "RED FLAG" COPD symptoms: Increased dyspnea on exertion ("I can't walk to the kitchen or up the stairs without coughing and wheezing", "My chest feels tight any time I move") Cough ("I get a different kind of cough than what I' have every day") Wheezing ("You can hear the whistling across the room") Medication Regimen Other: ICS Remote Patient Monitoring Vendor: No Connected RPM Device(s): Traditional Pulse Ox Self-Management plan Prednisone 40mg daily for 5 days Rx Begin wearing supplemental oxygen continuously until symptoms return to baseline Exacerbation plan Solumedrol 40mg IM/IV Chest Xray Additional Comments: Encouraged compliance with inhaler If unable to locate nebulizer, new order can be placed for equipment. Will order duoneb solution tohave on hand. 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) Overview: Oct 12, 2013 Entered By: ROCK SAMANO PA-C Comment: see note in scan 04/11/13- DrWolfe -found 05/31/06 w supraclaviNov 2012 Entered By: ROCK SAMANO PA-C Comment: swelling & FNA done showing tx Rituxan for stage 11 s/p extNov 2012 Entered By: ROCK SAMANO PA-C Comment: beam rad whennodes returned -most recent tx for lymphomaNov 2012 Entered By: ROCK SAMANO PA-C Comment: scalp soft tissue mass-EBR -stable -now will only get scansNov 2012 Entered By: ROCK SAMANO PA-C Comment: if dz progression Assessment & Plan: Completed last chemo treatment nov 2015 #7 DNR (do not resuscitate) #8 Advanced care planning/counseling discussion Other orders - Furosemide; Take 1 Tablet by mouth in the morning. - methIMAzole; Take 1 Tablet by mouth in the morning. with food.. - Gabapentin; Take 1 Capsule by mouth in the morning and 1 Capsule before bedtime. - Ipratropium-Albuterol; Inhale 3 mL via nebulizer every 4 hours as needed for Shortness of Breath. Dispense: 90 mL; Refill: 2 Additional Medical Decision Making: Patient lives with spouse, single level home Spouse has dementia Patient independent with ADLs, managing own medications On continuous o2 Non compliant with inhalers Reports pulmonary appt next with [facility] Oncology appt 04/13 Reviewed goals of care Elects dnr,dni. POLST and OOH DNR completed POA - step son Jae Russ, paperwork not available at time of visit today Scheduled appointments in the next 60 days: Future Appointments-next 60 days Date/Time Provider Specialty Dept Phone 04/13/2024 3:15 PM (Arrive by 3:00 PM) Ephraim Abebe MD Hematology Oncology [phone] 04/25/2024 4:00 PM Kylah Blanton, RN [facility] [phone] A total of 50 minutes was spent face to face (via video-based telemedicine if designated as a telemedicine visit) Subjective Subjective Is this a Telemedicine Visit? No, this is an Home Visit. Reason For [facility] Visit: Enrollment Current Concerns: Sohan Gaytan is a 83 year old male seen today for a [facility] provider visit. PMH includes lung Ca, pulmonary htn, CKD3, h/o lymphoma, COPD, CHF Today's concerns are: Sitting in recliner at time of exam Reports increased fatigue and weakness over the past 1-2 months States he has "no giddy up and go anymore" Ongoing VALENCIA, denies SOB at rest Using o2 at 2.5lpm Has inhaler, but has not been using Also has nebulizer, but not using Occasional productive cough Does use incentive spirometer Using rollator walker in the home Denies fever/chills Denies chest pain, palpitations Additional Objective Objective There were no vitals filed for this visit. Last Weights: Wt Readings from Last 3 Encounters: 01/28/23 84.8 kg (187 lb) 01/28/22 90.3 kg (199 lb) 01/28/21 96.4 kg (212 lb 8 oz) Last BPs: BP Readings from Last 4 Encounters: 03/22/24 130/80 01/28/23 146/75 01/28/22 157/77 01/28/21 115/85 General: alert and no distress Neuro: alert & oriented x 3 with fluent speech Heart: no murmur and irregularly irregular Lungs: coarse sounds heard, decreased breath sounds, no wheezing Abdomen: abdomen soft, non-tender, normal bowel sounds, and no rebound or guarding Ext: trace edema bilat LE Lab Review: I have reviewed the following results: Imaging results in the last 6 months No imaging results in the last 6 months BMP results Recent Labs Units 06/04/23 0520 05/31/23 0600 05/28/23 0545 SODIUM - [facility] mmol/L 138 136 137 POTASSIUM - [facility] mmol/L 4.3 4.0 4.4 CHLORIDE - [facility] mmol/L 99 97* 102 CO2 - [facility] mmol/L 30 28 25 CREATININE - [facility] mg/dL 1.4* 1.5* 1.3* BUN - [facility] mg/dL 27* 22* 16 Lipid panel resultsNo results for input(s): "CHOL", "LDLCALC", "HDL", "TRIG" in the last 95307 hours. CBC results Recent Labs Units 06/04/23 0520 05/31/23 0600 05/28/23 0535 WBC K/uL 4.66 5.69 5.42 HGB g/dL 8.6* 8.3* 8.1* HCT % 27.0* 25.8* 25.8* PLT K/uL 289 321 309 HbA1c results No results for input(s): "HGBA1C" in the last 31346 hours. Medication Review "Bottles Out" medication review performed today and medication list in EMR updated Mobility Evaluation: MAHC10 Assessment: Assistive Devices Used in the Home: Walker (standard or rollator) Chema Coulter PA-C 1:37 PM *Communication sent to PCP (via [facility] if non-[facility]), [facility] Care Team members,relevant Specialty Care Physicians* documented in this encounter Miscellaneous Notes * ACP (Advance Care Planning) - Chema Coulter PA-C - 03/30/2024 4:08 PM EDT Patient-centered Communication 03/30/2024 The patient/surrogate voluntarily agreed to participate in advance care planning discussion. They were advised that this is a separate service which may incur out of pocket cost in the form of copayment and/or deductibles. Location: Home Individual(s) present for conversation: Patient Decisions Synopsis SmartLink Most Recent Value Past ~10 years 03/30/2024 13:54 Decisions CPR decision: Declines CPR 03/30/2024 Declines CPR Intubation/Mechanical Ventilation decision: Declines Intubation/mechanical ventilation 03/30/2024 Declines Intubation/mechanical ventilation Non-invasive ventilation or BIPAP decision: Patient chooses non-invasive ventilation. Select interventions below 03/30/2024 Patient chooses non-invasive ventilation. Select interventions below Non-Invasive Ventilation Interventions: Oxygen only 03/30/2024 Oxygen only Chemotherapy decision: Patient chooses Chemotherapy 03/30/2024 Patient chooses Chemotherapy Radiation therapy decision: Declines Radiation therapy 03/30/2024 Declines Radiation therapy Surgical procedure(s) decision: Declines Surgical procedure 03/30/2024 Declines Surgical procedure Hospice decision: Undecided about Hospice 03/30/2024 Undecided about Hospice Additional Comments Synopsis SmartLink Most Recent Value Past ~10 years 03/30/2024 13:54 Additional Comments Additional Comments: DNR, DNI. POLST and OOH DNR completed 03/30/2024 DNR, DNI. POLST and OOH DNR completed Discerning What Matters Most to the Patient: Synopsis SmartLink Most Recent Value Past ~10 years 03/30/2024 13:47 Discerning What Matters Most to the Patient In their own words, patient's UNDERSTANDING of their illness is: "i have cancer in my right lung, about the size of a golf ball" 03/30/2024 "i have cancer in my right lung, about the size of a golf ball" Their current SYMPTOMS include: Tiredness;Reduced overall well being;Shortnes of breath 03/30/2024 Tiredness;Reduced overall well being;Shortnes of breath The patient's HOPES are: Maintain current functional abilities;Avoid intubation/mechanical ventilation;Avoid symptoms 03/30/2024 Maintain current functional abilities;Avoid intubation/mechanical ventilation;Avoid symptoms Avoid symptoms include: Pain 03/30/2024 Pain The patient defines LIVING WELL as: being able to remain at home 03/30/2024 being able to remain at home The patient's PRIOR EXPERIENCES: previously on chemo for lymphoma 03/30/2024 previously on chemo for lymphoma Source: Content from [employer] Program Aligning Care With What Matters Most: v2 Ratingsopsis SmartDang Le Most Recent Value Past ~10 years 03/30/2024 13:54 Aligning Care With What Matters Most Interventions/Choices: CPR;Intubation/mechanical ventilation;Non-invasive ventilation or BIPAP;Chemotherapy;Radiation therapy;Surgical procedure;Hospice 03/30/2024 CPR;Intubation/mechanical ventilation;Non-invasive ventilation or BIPAP;Chemotherapy;Radiation therapy;Surgical procedure;Hospice Source: Content from [employer] Program 30 minutes spent in direct [id number] discussion today, Chema Coulter PA-C * Assessment & Plan Note - Chema Coulter PA-C - 03/30/2024 4:04 PM EDT Associated Problem(s): 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) Completed last chemo treatment nov 2015 * Assessment & Plan Note - Chema Coulter PA-C - 03/30/2024 4:03 PM EDT Associated Problem(s): Right heart failure (HCC) Continue lasix 20mg daily Encouraged leg elevation for swelling * Assessment & Plan Note - Chema Coulter PA-C - 03/30/2024 4:02 PM EDT Associated Problem(s): Adenocarcinoma of right lung (HCC) Oncology appt next week Plans to start chemo No evidence of metastatic disease noted on recent brain MRI * Assessment & Plan Note - Chema Coulter PA-C - 03/30/2024 3:58 PM EDT Associated Problem(s): Emphysema/COPD (HCC) "RED FLAG" COPD symptoms: Increased dyspnea on exertion ("I can't walk to the kitchen or up the stairs without coughing and wheezing", "My chest feels tight any time I move") Cough ("I get a different kind of cough than what I' have every day") Wheezing ("You can hear the whistling across the room") Medication Regimen Other: ICS Remote Patient Monitoring Vendor: No Connected RPM Device(s): Traditional Pulse Ox Self-Management plan Prednisone 40mg daily for 5 days Rx Begin wearing supplemental oxygen continuously until symptoms return to baseline Exacerbation plan Solumedrol 40mg IM/IV Chest Xray Additional Comments: Encouraged compliance with inhaler If unable to locate nebulizer, new order can be placed for equipment. Will order duoneb solution tohave on hand. documented in this encounter Plan of Treatment Upcoming Encounters Date Type Department Care Team (Late st Contact Info) Description 04/13/2024 3:15 PM EDT Office Visit [facility]ematology/On[facility] [address] [facility] [place] [phone] Ephraim Abebe MD [address] [facility] [place] [address] 04/25/2024 4:00 PM EDT [facility] [address] [place] [id number] Kylah Blanton RN [address] [place] [address] 05/11/2024 11:00 AM EDT [facility] Visit [facility] [address] [place] [address] Chema Coulter PA-C [address] [place] [address] Health Maintenance Due Date Last Done Comments COVID-19 Vaccine (#1) 1945 Pneumococcal Vaccine: 65+ Years (1 of 2 - PCV) 1944 Depression Screening 1950 Albumin/Creatinine Ratio 1956 Alpha-1 Antitrypsin 1956 DTaP,Tdap,and Td Vaccines (1 - Tdap) 1957 Influenza Vaccine (FLU shot) (Season Ended) 2024 O2 ASSESSMENT COMPLETED IN PAST YEAR FOR COPD 03/22/2025 03/22/2024 Zoster Vaccines Completed 02/26/2021, 10/29/2020 GARDASIL-HPV IMMUNIZATION [...] this encounter Medical Devices Implanted Type Area Purchasing Administrator Device Identifier Shelf Expiration Date Model / Serial / Lot Bard Powerport Single Mercedes Implanted:Qty: 1 on 07/24/2015 by Malina Moreno MD at OR [facility] Left: Chest CR BARD : ACCESS SYSTEMS 11/23/2016 [id number] / / [id number] documented as of this encounter Visit Diagnoses Diagnosis Adenocarcinoma of right lung (HCC)- Primary Pulmonary emphysema, unspecified emphysema type (HCC) Chronic right-sided heart failure (HCC) Congestive heart failure, unspecified Stage 3 chronic kidney disease, unspecified whether stage 3a or 3b CKD (HCC) Primary pulmonary hypertension (HCC) Primary pulmonary hypertension 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
--- OUTSIDE RECORDS SUMMARY | 2024-04-14 00:44 | External Medical Summary | Summary of Care ---
Author Name Unknown Organization [facility] Address [address] [place] [address] Phone [phone] Care Team Providers Care Call Center Coordinator Name Role Phone Maximus Garrido MD Primary Care Provider [phone] Reason for Visit * Reason Onset Date Comments [facility]: Engagement 03/22/2024 Encounter Details Date Type Department Care Team ([facility] st Contact Info) Description 03/22/2024 Telephone [facility], [facility] [address] [facility] [place] [phone] [facility], Nurse [facility] [address] [place], [place] [phone] [facility]: Engagement Allergies Active Allergy Reactions Criticality Noted Date [...] by mouth in the morning. 0 Active Topanga 3 1000 MG CAPS Take by mouth. [...] encounter Miscellaneous Notes * Telephone Encounter - Jelly Frias LPN - 03/22/2024 12:02 PM EDT [facility] Engagement Attempt Engagement: Engagement Attempt 1: Contacted - Agreed to home-based services Scheduled appointment information: 03/22/24 Abdoul Blanton 03/30 1:00 pm Charbel Huertas Home Information: No data was found Advance Care Planning (ACP): No data was found Has Living Will or Advance Directive: No data was found Anticipated Sub-Program: Focused Care Management (3-9 months) Confirmation of Sub-Program Type (by care staff nurse icu resource team): No data was found Handoff Information: Current care team notified via: No data was found Current telemonitoring equipment: No data was found documented in this encounter Plan of Treatment Upcoming Encounters Date Type Department Care Team (Late st Contact Info) Description 03/30/2024 1:00 PM EDT Home Visit [facility], [facility] [address] [place] [address] Chema Coulter PA-C [address] [place] [phone] 04/13/2024 3:15 PM EDT Office Visit Hematology/Oncology [facility] [place] [address] [facility] [place] [phone] Ephraim Abebe MD [address] [facility] [address] Health Maintenance Due Date Last Done Comments [...] this encounter Medical Devices Implanted Type Area Executive Community Planning Device Identifier Shelf Expiration Date Model / Serial / Lot Bard Powerport Single Mercedes Implanted:Qty: 1 on 07/24/2015 by Malina Moreno MD at OR [facility] Left: Chest CR BARD : ACCESS SYSTEMS 11/23/2016 [id number] / / [id number] documented as of this encounter Care Teams Call Center Coordinator Relationship Specialty Start Date End Date Maximus Garrido MD [address] [place] [address] PCP - General Pulmonary Diseases 03/22/24 documented as of this encounter
--- OUTSIDE RECORDS SUMMARY | 2024-04-14 00:44 | External Medical Summary | Summary of Care ---
Author Name Unknown Organization [facility] Address [address] [place] [address] Phone [phone] Care Team Providers Care Data Warehouse Consultant Name Role Phone Maximus Garrido MD Primary Care Provider [phone] Reason for Visit * Reason Onset Date Comments [facility]: Screening 03/22/2024 Encounter Details Date Type Department Care Team ([facility] st Contact Info) Description 03/22/2024 Telephone [facility], [facility] [address] [facility] [place] [phone] [facility], Nurse [facility] [address] [place], [place] [phone] [facility]: Screening Allergies Active Allergy [...] by mouth in the morning. 0 Active Tebbetts 3 1000 MG CAPS Take by mouth. [...] Encounter - Jelly Frias LPN - 03/22/2024 12:00 PM EDT Sohan Gaytan was referred as a potential candidate for enrollment for [facility]. A review of this chart was completed and: Sohan meets criteria for [facility]. Jump to Initiation Referring care team was notified via : Epic communication documented in this encounter Plan of Treatment Upcoming Encounters Date Type Department Care Team (Late st Contact Info) Description 03/30/2024 1:00 PM EDT Home Visit [facility], [facility] [address] [facility] [place] [address] Chema Coulter PA-C [address] [place] [address] 04/13/2024 3:15 PM EDT Office Visit Hematology/Oncology Dennis Del[place] [address] [facility] [place] [phone] Ephraim Abebe MD [address] [facility] [place] [address] Health Maintenance Due Date Last Done Comments [...] this encounter Medical Devices Implanted Type Area Product Lead Device Identifier Shelf Expiration Date Model / Serial / Lot Bard Powerport Single Mercedes Implanted:Qty: 1 on 07/24/2015 by Malina Moreno MD at OR [facility] [address] [address] Left: Chest CR BARD : ACCESS SYSTEMS 11/23/2016 [id number] / / [id number] documented as of this encounter Care Teams Data Warehouse Consultant Relationship Specialty Start Date End Date Maximus Garrido MD [address] [address] [place] [address] PCP - General Pulmonary Diseases 03/22/24 documented as of this encounter
[2024-04-14 06:56] LABS: Hematocrit (blood only) 38.7 % (42.0-52.0); Hemoglobin 12.9 g/dl (14.0-18.0); Mean Corpuscular Hgb Conc 33.3 g/dL (32.0-36.0); Mean Platelet Volume 10.2 fL (9.4-12.4); Platelet Count 254 K/uL (130-400); RDW Coefficient of Variation 13.5 % (11.5-14.5); RDW Standard Deviation 42.9 fL (36.4-46.3); Red Blood Count 4.45 M/uL (4.70-6.10); White Blood Count 7.02 K/ul (4.8-10.8)
[2024-04-14 07:18] LABS: BUN Creatinine Ratio 17.9 (10-20); Calcium 8.2 mg/dl (8.6-10.3); Creatinine Clr Calc Pharmacy 40.9 ml/min; Est GFR (African American) 52.7 ml/min; Est GFR (Non-African American) 45.5 ml/min; Potassium 4.2 mmol/L (3.5-5.1)
--- NOTE | 2024-04-14 07:57 | Pulmonology Progress Note ---
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 He was not completely staged as EBUS was never performed. However the PET scan did demonstrate moderate FDG uptake within N1 and N2 nodes. He presents now with generalized weakness and a fall. Has not been seen by medical oncology. Recommendations: 1. Pleural effusion: Patient underwent RIGHT-sided thoracentesis yesterday with a total of 900 mL of bloody fluid removed. Findings consistent with exudative process, likely consistent with his malignancy diagnosis. Patient is saturating well on 2 L nasal cannula at this time. Will monitor for any reaccumulation, however he seems to be doing well postintervention. 2. Lung cancer: Patient has previously been established by Dr. Ephraim Abebe at [facility]. Spoke with case management and CCP navigator and they will reach out to [facility] nurse navigator to see about arranging an outpatient appointment the patient that works for for the patient. 3. Declining functional status. Unfortunately, the patient does appear to be declining. He is weak and frail appearing at this point. He did successfully undergo evaluation to obtain diagnosis, however I question how well he will tolerate any intervention related to his malignancy diagnosis. This will need to be taken into account when considering any additional invasive procedures and when discussing with potential therapies might be appropriate for this 83-year-old gentleman. Will continue to follow with you. Feel free to contact us with questions or concerns Admission and Anticipated Discharge Date Admission Date: April 12, 2024 Subjective Patient seen and evaluated. He reports feeling tired, but offers no complaints of pain at this time. Will communicate with case management to help arrange follow-up with his medical oncologist. Review of Systems Review of Systems: Please refer to admission H&P. No additions or deletions Physical Exam Physical Exam: VITAL SIGNS - Vital signs and nursing notes were reviewed. GENERAL - 83-year-old male appearing his stated age who is in no acute distress. LUNGS - Auscultation reveals diminished breath sounds with coarse sounding lungs at the bases. CARDIAC - RRR with S1/S2. No murmur, rubs, or gallops appreciated. Results & Data Results & Data Vital Signs (Past 12 Hours) Vital Signs Temp Pulse Pulse Resp BP Pulse Ox O2 Del Method 04/14/24 07:38 36.5 C 96 H 18 138/89 90 Nasal Cannula 04/14/24 03:30 36.8 C 119 H 16 154/96 H 94 Nasal Cannula 04/13/24 23:16 Nasal Cannula 04/13/24 22:54 36.8 C 102 H 18 136/90 94 Nasal Cannula 04/13/24 22:00 99 H O2 Flow Rate 04/14/24 07:38 2 04/14/24 03:30 2 04/13/24 23:16 2.5 04/13/24 22:54 2 04/13/24 22:00 PG Care Time/CCT Total # of Minutes Spent Total Time Spent with Patient: Total time spent is greater than 50% in coordination of care (as documented) at patient's floor/unit and/or counseling patient: Coding Level of Care Code 09227 SUB INP/OBS CARE 2/35MIN Diagnoses Pleural effusion J90 Adenocarcinoma of lung, stage 3 C34.90
--- NOTE | 2024-04-14 09:36 | Hospitalist Progress Note ---
Date of Service April 14, 2024 Assessment & Plan (1) Pleural effusion: Plan: 83yo male with history of adenocarcinoma of the lung presenting after an uncomplicated ground level fall at home. Patient found to have a large right pleural effusion. This could be an incidental finding, and not related to the fall Effusion likely from CHF given elevated BNP and legs swellings and also weight gain Now post thoracentesis with removal of almost 1 L of fluid Breathing is better per patient (2) Knee pain: Plan: Complains of right knee pain and swelling could be from osteoarthritis with some effusion will r/o dislocation or fracture Consult Ortho (3) Elevated troponin: Plan: Mildly elevated trop Patient denies chest pain. No acute findings on EKG. Possible demand ischemia in setting of CHF -Telemetry monitoring -Trend troponin to peak -Check 2D echo (4) Hyponatremia: Plan: Improved (5) Adenocarcinoma of lung, stage 3: Plan: Noted. Patient is working with Pulmonary and Radiation Oncology to establish plan of care (6) Elevated blood sugar: Plan: Patient with elevated blood sugar of 247. No history of diabetes. -Check Hgb A1C -ISS Plan Await evaluation by PT, Ortho Admission and Anticipated Discharge Date Admission Date: April 12, 2024 Subjective Patient seen and examined today, states shortness of breath is better after thoracentesis, however, complains of right knee pain and swelling Review of Systems Review of Systems: All systems reviewed are negative, apart from the ones contained in the history. Physical Exam Physical Exam: The patient is awake, alert and oriented 3, well developed and well nourished, normocephalic and atraumatic, lying in bed and in no acute distress. HEENT--PERRL, EOMI, mucous membranes and oropharynx mildly dry Neck--supple. No JVD. No bruits. Thyroid normal, trachea midline, no adenopathy. Heart--normal S1 and S2. No murmurs, rubs or gallops. Lungs--reduced air entry on auscultation Abdomen--normal bowel sounds and soft. Extremities--no cyanosis or clubbing. No edema. Dermatologic--normal skin turgor, normal color, no abnormal lymph nodes, no rash. Neurologic--cranial nerves II through XII grossly intact. Rheumatologic--normal range of motion. Psychiatric--normal affect. Results & Data Results & Data Vital Signs (Past 12 Hours) Vital Signs Temp Pulse Pulse Resp BP Pulse Ox O2 Del Method 04/14/24 07:38 97.7 F 96 H 18 138/89 90 Nasal Cannula 04/14/24 03:30 98.2 F 119 H 16 154/96 H 94 Nasal Cannula 04/13/24 23:16 Nasal Cannula 04/13/24 22:54 98.2 F 102 H 18 136/90 94 Nasal Cannula 04/13/24 22:00 99 H O2 Flow Rate 04/14/24 07:38 2 04/14/24 03:30 2 04/13/24 23:16 2.5 04/13/24 22:54 2 04/13/24 22:00 PG Care Time/CCT Total # of Minutes Spent Total Time Spent with Patient: Total time spent is greater than 50% in coordination of care (as documented) at patient's floor/unit and/or counseling patient: Coding Level of Care Code 49562 SUB INP/OBS CARE 2/35MIN Diagnoses Pleural effusion J90 Knee pain M25.569 Elevated troponin R77.8 Hyponatremia E87.1 Adenocarcinoma of lung, stage 3 C34.90 Elevated blood sugar R73.9 Time Spent (min) 35
--- NOTE | 2024-04-14 10:46 | XRay Report ---
RIGHT KNEE 2 VIEWS CLINICAL HISTORY: Right knee pain and swelling. FINDINGS: AP and crosstable lateral views of the right knee are obtained. No prior studies are availa ble for comparison at the time of dictation. The skeletal structures are osteopenic. No fracture is s een. There is moderate tricompartmental degenerative joint space narrowing. There are marginal osteop hytes and patellar enthesophytes. There is a large joint effusion. Bony overgrowth is seen along the tibial tuberosity. There is mild soft tissue swelling around the knee. Advanced atherosclerotic calci fication is noted in the popliteal artery. IMPRESSION: 1. Soft tissue swelling and large joint effusion with no acute bony abnormality identified. 2. Osteopenia and arthritic change as above. Electronically signed by: Steven Bañuelos M.D. 04/14/2024 10:45 AM
--- NOTE | 2024-04-14 11:50 | Orthopedic Consultation ---
Date of Consultation April 14, 2024 Assessment & Plan (1) Knee pain: Weightbearing as tolerated with walker assistance PT/OT Ice with easy wrap Due to his chronic kidney disease I will avoid long-term use of nonsteroidal agents but I will give him a one-time dose of Toradol. He can continue to use extra strength Tylenol for pain control. At this point I do not feel that aspiration or a corticosteroid injection are necessary. The injection could increase his blood sugar level and aspiration could pose the risk of infection. Patient understands this and is in agreements. He can follow-up at our clinic as needed. Supervising Physician Co-Signing Physician Notes I reviewed the patient's chart and x-rays and agree with the above note. JOSEPH Houser performed the substantial portion of the visit History of Present Illness Reason for Consultation: Right knee pain Requesting Physician: Nitin Campbell MD Attending Physician: Del Sanchez MD History of Present Illness This 83-year-old male seen in consultation for right knee pain that is a chronic issue but is increased over the past 2 to 3 days. Patient states that he has [id number] arthritis in the knee. He states that he has never had injections in the past. He states that he may have seen an orthopedic doctor for this issue but generally follows with his primary care provider. Patient states that he has pain with attempting bending of the knee. He states that it seems swollen. He states that once his walker gets here and he is able to get up and move around it should feel better. Patient states that he has a history of [place]. He has usually always a little short of breath. He denies any chest pain or numbness or tingling in the right lower extremity. He also denies fever, chills, sweats, nausea, vomiting, diarrhea or difficulty voiding. Allergies Allergy/AdvReac Type Severity Reaction Status Date / Time No Known Allergies Allergy Verified 04/12/24 21:49 Home Medications Medication Instructions Recorded Confirmed Type cholecalciferol (vitamin D3) 25 2,000 units PO QAM 08/23/19 04/12/24 History mcg (1,000 unit) tablet aspirin 81 mg tablet,delayed 81 mg PO QAM 12/17/19 04/12/24 History release Portable Oxygen #1 ea 07/01/23 02/11/24 Rx Wheeled Walker #1 ea 07/01/23 02/11/24 Rx acetaminophen 500 mg tablet 500 mg PO Q6H PRN Pain 10/20/23 04/12/24 History (Tylenol Extra Strength) gabapentin 300 mg capsule 300 mg PO BID PRN pain #60 caps 01/14/24 04/12/24 Rx ipratropium 0.5 mg-albuterol 3 mg 3 ml NEB QID PRN Shortness Of 02/03/24 04/12/24 History (2.5 mg base)/3 mL nebulization Breath Or Wheezing soln methimazole 10 mg tablet 10 mg PO QAM 02/03/24 04/12/24 History fluticasone furoate 100 1 inh inhalation DAILY #30 ea 02/07/24 04/12/24 Rx mcg/actuation blister powder for inhalation (Arnuity Ellipta) tamsulosin 0.4 mg capsule 0.4 mg PO QAM #90 caps 03/20/24 04/12/24 Rx furosemide 20 mg tablet See Rx Instructions .Route .COMPLEX 04/12/24 04/12/24 History Patient History Medical History Hypertension Sensorineural hearing loss (SNHL) of both ears Cor pulmonale Pulmonary hypertension Pulmonary nodule RLL Chronic kidney disease History of shingles takes gabapentin for pain Hyperthyroidism Emphysema/COPD Lymphoma (~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 Surgical History History of nasal surgery (~2014) due to CA Hx of esophagogastroduodenoscopy Hx of colonoscopy H/O varicose vein ligation Family History Father , Age 91 Renal failure Mother Breast cancer Denies family history of Ovarian cancer Prostate cancer Myocardial infarction Colorectal cancer Social History Smoking Status: Former smoker Tobacco Type: Cigarettes Age Started Using Tobacco: 18; Age Quit Using Tobacco: 61; Cigarettes Per Day: 1 PPD; Second Hand Exposure: No; Do You Dip or Chew Tobacco: No; Hx Alcohol Use: No Hx Substance Use: No Preferred Language: Yakut Communication Ability: Effective Visual Impairment: No Limitations Hearing Ability: Hard of Hearing Product Consultant Required: No Beliefs That Will Affect Care: None marital status: Current Living Situation: Spouse current occupational status: retired How many Children do You have: 1 Feels Safe at Home: Yes Childhood Exposure to Second-Hand Smoke: No Diet: regular caffeine: Yes Dental Care, Regularly: No Physical Activity Frequency: Does not Exercise Seatbelt Use: always Sunscreen Use: No Assistive Devices: Oxygen - at Night and Walker Review of Systems Review of Systems: All systems reviewed & are unremarkable except as noted in Subjective Physical Exam Physical Exam: Right knee: Patient has a 2+ effusion. He experiences medial and lateral joint tenderness when the knee is palpated and slightly flexed. Range of motion is limited to 80 degrees of flexion and 10 degrees of extension. I was able to manipulate his patella with palpable crepitation. There is no laxity with light varus or valgus stressing. Patient was able to perform an active straight leg raise test. He is able to actively dorsi and plantarflex his foot. He is able to detect light sensation to touch over the pads of all digits and the plantar surface of his foot. Results & Data Vital Signs (Past 12 Hours) Vital Signs Temp Pulse Pulse Resp BP Pulse Ox O2 Del Method 04/14/24 11:31 37.0 C 108 H 18 127/72 90 Nasal Cannula 04/14/24 10:06 Nasal Cannula 04/14/24 09:58 86 04/14/24 07:38 36.5 C 96 H 18 138/89 90 Nasal Cannula 04/14/24 03:30 36.8 C 119 H 16 154/96 H 94 Nasal Cannula O2 Flow Rate 04/14/24 11:31 2 04/14/24 10:06 2 04/14/24 09:58 04/14/24 07:38 2 04/14/24 03:30 2 Diagnostic Findings Laboratory Results WBC 7.02 K/ul (4.8-10.8) 04/14/24 06:21 RBC 4.45 M/uL (4.70-6.10) L 04/14/24 06:21 Hgb 12.9 g/dl (14.0-18.0) L 04/14/24 06:21 Hct 38.7 % (42.0-52.0) L 04/14/24 06:21 MCV 87.0 fL (80.0-100.0) 04/14/24 06:21 MCH 29.0 pg (25.0-34.0) 04/14/24 06:21 MCHC 33.3 g/dL (32.0-36.0) 04/14/24 06:21 RDW Std Deviation 42.9 fL (36.4-46.3) 04/14/24 06:21 RDW Coeff of Chantal 13.5 % (11.5-14.5) 04/14/24 06:21 Plt Count 254 K/uL (130-400) 04/14/24 06:21 MPV 10.2 fL (9.4-12.4) 04/14/24 06:21 Immature Gran % (Auto) 0.4 % 04/12/24 19:10 Neut % (Auto) 87.3 % 04/12/24 19:10 Lymph % (Auto) 3.2 % 04/12/24 19:10 [place] % (Auto) 8.8 % 04/12/24 19:10 Eos % (Auto) 0.1 % 04/12/24 19:10 Baso % (Auto) 0.2 % 04/12/24 19:10 Neut # (Auto) 8.06 K/uL (1.40-6.50) H 04/12/24 19:10 Lymph # (Auto) 0.30 K/uL (1.20-3.40) L 04/12/24 19:10 [place] # (Auto) 0.81 K/uL (0.11-0.59) H 04/12/24 19:10 Eos # (Auto) 0.01 K/uL (0.00-0.50) 04/12/24 19:10 Baso # (Auto) 0.02 K/uL (0.00-0.20) 04/12/24 19:10 Immature Gran # (Auto) 0.04 K/uL (0.01-0.20) 04/12/24 19:10 PT 11.3 Seconds (9.0-12.0) 04/12/24 19:10 INR 1.0 (0.9-1.1) 04/12/24 19:10 VBG pH 7.36 (7.36-7.41) 04/12/24 19:10 VBG pCO2 48 mmHg (38-50) 04/12/24 19:10 VBG pO2 34 mmHg 04/12/24 19:10 VBG HCO3 27 mmol/L 04/12/24 19:10 VBG O2 Saturation < 60.0 % 04/12/24 19:10 VBG Base Excess 1.0 mEq/L 04/12/24 19:10 Sodium 133 mmol/L (136-145) L 04/14/24 06:21 Potassium 4.2 mmol/L (3.5-5.1) 04/14/24 06:21 Chloride 95 mmol/L (98-107) L 04/14/24 06:21 Carbon Dioxide 33 mmol/L (21-32) H 04/14/24 06:21 Anion Gap 5 (3-11) 04/14/24 06:21 BUN 25 mg/dl (6-23) H 04/14/24 06:21 Creatinine 1.40 mg/dl (0.6-1.4) 04/14/24 06:21 Est Cr Clr Drug Dosing 40.9 ml/min 04/14/24 06:21 Est GFR ( Amer) 52.7 ml/min 04/14/24 06:21 Est GFR (Non-Af Amer) 45.5 ml/min 04/14/24 06:21 BUN/Creatinine Ratio 17.9 (10-20) 04/14/24 06:21 Glucose 90 mg/dl (70-99(Fasting)) 04/14/24 06:21 POC Glucose 92 mg/dl (70-99) 04/14/24 07:51 Estimat Average Glucose 137 mg/dl 04/13/24 04:04 Hemoglobin A1c 6.4 % (4.5-5.6) H 04/13/24 04:04 Osmolality 283 mOsm/kg (280-300) 04/12/24 19:10 Calcium 8.2 mg/dl (8.6-10.3) L 04/14/24 06:21 Phosphorus 3.9 mg/dl (2.5-4.9) 04/12/24 21:11 Magnesium 2.1 mg/dl (1.7-2.4) 04/12/24 21:11 Total Bilirubin 0.5 mg/dl (0.2-1.0) 04/12/24 19:10 AST 14 U/L (13-39) 04/12/24 19:10 ALT 12 U/L (7-52) 04/12/24 19:10 Alkaline Phosphatase 87 U/L (34-104) 04/12/24 19:10 Troponin I High Sens 36.4 pg/ml (0-20) H D 04/13/24 10:42 B-Natriuretic Peptide 1180 pg/ml (0-100) H 04/12/24 19:10 Total Protein 6.4 gm/dl (6.0-8.3) 04/12/24 19:10 Albumin 3.7 gm/dl (3.4-5.0) 04/12/24 19:10 Globulin 2.7 gm/dl (2.5-4.0) 04/12/24 19:10 Albumin/Globulin Ratio 1.4 (0.9-2) 04/12/24 19:10 Urine Color Yellow 04/12/24 20:48 Urine Appearance Clear (Clear) 04/12/24 20:48 Urine pH 5.5 (4.5-7.5) 04/12/24 20:48 Ur Specific [place] 1.011 (1.000-1.030) 04/12/24 20:48 Urine Protein Negative (Negative) 04/12/24 20:48 Urine Glucose (UA) 1+ (Negative) H 04/12/24 20:48 Urine Ketones Negative (Negative) 04/12/24 20:48 Urine Blood Negative (Negative) 04/12/24 20:48 Urine Nitrite Negative (Negative) 04/12/24 20:48 Urine Bilirubin Negative (Negative) 04/12/24 20:48 Urine Urobilinogen Negative (Negative) 04/12/24 20:48 Ur Leukocyte Esterase Negative (Negative) 04/12/24 20:48 Fluid Neutrophils % 1 % 04/13/24 Unknown Fluid Lymphocytes % 61 % 04/13/24 Unknown Fluid Meso/Macro/Harnett % 38 % 04/13/24 Unknown Fluid Comment 04/13/24 Unknown Pleural Fluid Source Right Lung 04/13/24 Unknown Pleural Color Red 04/13/24 Unknown Pleural Appearance Cloudy 04/13/24 Unknown Pleural pH 7.53 (7.3-7.4) H 04/13/24 Unknown Pleural WBC (Auto) 1996 /uL 04/13/24 Unknown Pleural RBC (Auto) 92579 /uL 04/13/24 Unknown Pleural Total Protein 3.6 gm/dl 04/13/24 Unknown Pleural LDH 205 U/L 04/13/24 Unknown Pleural Glucose 104 mg/dl 04/13/[address] 04/12/24 18:56 Exam(s): CT HEAD Without Contrast EXAM: CT Head Without Intravenous Contrast CLINICAL HISTORY: Reason for exam: Fall. TECHNIQUE: Axial computed tomography images of the head/brain without intravenous contrast. CTDI is 38.24 mGy and DLP is 624.41 mGy-cm. Automated exposure control was utilized for the study. A dose lowering technique was utilized adhering to the principles of ALARA. COMPARISON: None. FINDINGS: Brain: Moderate generalized brain atrophy . Decreased attenuation within the deep periventricular white matter compatible with microangiopathic disease. No hemorrhage. Ventricles: Unremarkable. No ventriculomegaly. Bones/joints: Unremarkable. No acute fracture. Soft tissues: Unremarkable. Sinuses: Unremarkable as visualized. No acute sinusitis. Mastoid air cells: Unremarkable as visualized. No mastoid effusion. IMPRESSION: Chronic changes as described with no acute intracranial hemorrhage or space-occupying lesion. Electronically signed by: Gisela German MD 04/12/24 20:[address] 04/12/24 21:17 Exam(s): CT CHEST Without Contrast EXAM: CT Chest Without Intravenous Contrast CLINICAL HISTORY: Reason for exam: fall, right pleural effusion, ?hemothorax?. TECHNIQUE: Axial computed tomography images of the chest without intravenous contrast. CTDI is 25.02 mGy and DLP is 837.84 mGy-cm. Automated exposure control was utilized for the study. A dose lowering technique was utilized adhering to the principles of ALARA. COMPARISON: 02/10/2024. FINDINGS: Lungs: Right lower lobe atelectasis. Mild ground glass opacity within the right perihilar region and right lower lobe, cannot exclude superimposed pneumonitis. Emphysematous changes involving the lung apices. Minimal linear atelectasis involving the left lung apex. Left lower lobe round density measuring approximately 2.5 cm, most compatible with round atelectasis given morphology and stable in the interval. Pleural space: Large right-sided pleural effusion, increased in size in the interval. No pneumothorax. Heart: Mild cardiomegaly with coronary artery calcifications. No significant pericardial effusion. Bones/joints: Diffuse osteopenia with multilevel degenerative disease of the spine, more significant throughout the lower thoracic spine with vacuum phenomenon. No acute fracture. No dislocation. Soft tissues: Unremarkable. Vasculature: Calcified atherosclerotic disease of aorta with no aneurysm. Lymph nodes: Unremarkable. No enlarged lymph nodes. Liver: Abdomen reveal low attenuation structure within the left liver lobe measuring 13 mm, likely cyst and stable in the interval. Left upper renal pole low-attenuation structures consistent with simple cysts, largest measuring 3.4 cm with no further follow-up imaging recommended. Remainder of the upper abdominal structures unremarkable. IMPRESSION: Interval increase in size of the right pleural effusion with right lower lobe atelectasis and groundglass opacity concerning for residual pneumonitis. Left lower lobe round atelectasis, stable in the interval. Underlying emphysematous changes, more obvious in the lung apices. Electronically signed by: Gisela German MD 04/13/24 00:00 AM Chest X-Ray 04/13/24 12:19 XR chest 1V portable CLINICAL HISTORY: S/P Thoracentesis TECHNIQUE: Single frontal radiograph of the chest was obtained. Comparison: Comparison is made to chest radiograph 04/13/2024 FINDINGS: No lines and tubes are seen. Cardiomegaly is noted. The aortic arch is calcified. The lungs are clear. Small right pleural effusion is decreased in size from prior exam. Stable trace left pleural effusion. No pneumothorax. IMPRESSION: Interval decrease in right pleural effusion with no pneumothorax. Stable trace left pleural effusion. ACT 112: Negative or not required by law. Electronically signed by: Asher Davidson M.D. 04/13/2024 12:50 PM Knee X-Ray 04/14/24 09:30 RIGHT KNEE 2 VIEWS CLINICAL HISTORY: Right knee pain and swelling. FINDINGS: AP and crosstable lateral views of the right knee are obtained. No prior studies are available for comparison at the time of dictation. The skeletal structures are osteopenic. No fracture is seen. There is moderate tricompartmental degenerative joint space narrowing. There are marginal osteophytes and patellar enthesophytes. There is a large joint effusion. Bony overgrowth is seen along the tibial tuberosity. There is mild soft tissue swelling around the knee. Advanced atherosclerotic calcification is noted in the popliteal artery. IMPRESSION: 1. Soft tissue swelling and large joint effusion with no acute bony abnormality identified. 2. Osteopenia and arthritic change as above. Electronically signed by: Steven Bañuelos M.D. 04/14/2024 10:45 AM
[2024-04-14] MEDS: KETOROLAC TROMETHAMINE 15 MG/ML VIAL IV ONE (12:18)
[2024-04-14] MEDS: ACETAMINOPHEN 325 MG TAB PO PRN (12:19)
[2024-04-15] MEDS: DOCUSATE SODIUM 100 MG CAP PO PRN (02:03)
[2024-04-15] MEDS: POLYETHYLENE (MIRALAX) 17 GM PACK PO PRN (08:36)
--- NOTE | 2024-04-15 08:36 | Pulmonology Progress Note ---
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 He was not completely staged as EBUS was never performed. However the PET scan did demonstrate moderate FDG uptake within N1 and N2 nodes. He presents now with generalized weakness and a fall. Has not been seen by medical oncology. He underwent repeat thoracentesis Recommendations: 1. Pleural effusion: Patient underwent RIGHT-sided thoracentesis 04/13 with a total of 900 mL of bloody fluid removed. Findings consistent with exudative process, likely consistent with his malignancy diagnosis. Cytology still pending. There is some residual fluid but will hold off on repeat thoracentesis until cytology is finalized. Could consider Pleurx if fluid reaccumulate's. Will repeat chest x-ray in a.m. 2. Lung cancer: Patient has previously been established by Dr. Ephraim Abebe at [facility]. To follow-up with Dr. Abebe in the outpatient setting. Patient's performance status may limit therapeutic options 3. Declining functional status. Addressing CODE STATUS would be entirely appropriate as the patient appears significantly worse than when he saw him 3 months ago. He will likely require placement as he does not appear to be at a functional status which would allow him to go home. Will continue to follow with you. Feel free to contact us with questions or concerns Admission and Anticipated Discharge Date Admission Date: April 12, 2024 Subjective Seen and examined. EMR reviewed. The patient states his breathing is better. According to nursing he is required essentially full assist to get to the chair and is complained of some shortness of breath as well as significant leg pain. Patient is not coughing. His oxygen requirement is stable. Denies any chest pain. Review of Systems 2 Review of Systems: All systems reviewed & are unremarkable except as noted in Subjective Physical Exam 2 Physical Exam: VITAL SIGNS - Vital signs and nursing notes were reviewed. GENERAL - 83-year-old male appearing his stated age who is in no acute distress. LUNGS - Auscultation reveals diminished breath sounds with coarse sounding lungs at the bases. CARDIAC - RRR with S1/S2. No murmur, rubs, or gallops appreciated. Results & Data Results & Data Vital Signs (Past 12 Hours) Vital Signs Temp Pulse Pulse Resp BP Pulse Ox O2 Del Method 04/15/24 07:45 Nasal Cannula 04/15/24 07:23 89 04/15/24 03:18 36.7 C 83 18 141/90 H 94 Nasal Cannula 04/14/24 23:17 36.7 C 66 18 144/86 H 93 Nasal Cannula 04/14/24 22:20 85 04/14/24 22:02 Nasal Cannula O2 Flow Rate 04/15/24 07:45 2.5 04/15/24 07:23 04/15/24 03:18 2 04/14/24 23:17 2 04/14/24 22:20 04/14/24 22:02 2.5 Laboratory Results 04/14/24 06:21 04/14/24 06:21 Diagnostic Findings No new imaging PG Care Time/CCT Total # of Minutes Spent Total Time Spent with Patient: Total time spent is greater than 50% in coordination of care (as documented) at patient's floor/unit and/or counseling patient: Coding Level of Care Code 37320 SUB INP/OBS CARE 2/35MIN Diagnoses Pleural effusion J90 Adenocarcinoma of lung, stage 3 C34.90
--- NOTE | 2024-04-15 10:10 | Orthopedic Progress Note ---
Date of Service April 15, 2024 Assessment & Plan (1) Right knee pain: Plan: The patient was educated regarding today's findings. Conservative care measures were discussed. He states the effusion does not bother him. He states his pain has improved significantly since he was first admitted. I suspect this was related to osteoarthritis and perhaps irritation of the synovium or joint itself. Continue with his ice pack. Weight-bear as tolerated. Physical th erapy has already been ordered, but the initial evaluation has not been completed. Follow-up in the office upon discharge. Admission and Anticipated Discharge Date Admission Date: April 12, 2024 Subjective This 83-year-old male is seen today in his room. He states there is no longer significant pain in the right knee. He currently has an ice pack in place. No other complaints at this point. No new orthopedic injury. Physical Exam Physical Exam: General: Frail, elderly male, in no acute distress. Laying in bed. Alert and conversive. Skin: Warm and dry with fair turgor. He has a fairly large intra-articular effusion in the right knee. There is a small amount of ecchymosis present anteriorly, I suspect from a previous aspiration attempt. There is no warmth or erythema. Musculoskeletal: The patient has full terminal extension. He has no discomfort with passive flexion and extension of the knee. I am able to flex him to around 45 degrees without difficulty. Stable collateral ligaments. No pain with palpation about the knee, including the patellar tendon and the quadriceps tendon. Obvious arthritic changes are present. The effusion is again noted. He has intact active motion to the ankle and toes. Neurologic: Gross sensation is intact across the right leg by soft touch. Results & Data Vital Signs (Past 12 Hours) Vital Signs Temp Pulse Pulse Resp BP Pulse Ox O2 Del Method 04/15/24 08:00 36.7 C 90 18 143/86 H 91 Nasal Cannula 04/15/24 07:45 Nasal Cannula 04/15/24 07:23 89 04/15/24 03:18 36.7 C 83 18 141/90 H 94 Nasal Cannula 04/14/24 23:17 36.7 C 66 18 144/86 H 93 Nasal Cannula 04/14/24 22:20 85 O2 Flow Rate 04/15/24 08:00 2 04/15/24 07:45 2.5 04/15/24 07:23 04/15/24 03:18 2 04/14/24 23:17 2 04/14/24 22:20
--- NOTE | 2024-04-15 14:57 | Hospitalist Progress Note ---
Date of Service April 15, 2024 Assessment & Plan (1) Pleural effusion: Plan: 83yo male with history of adenocarcinoma of the lung presenting after an uncomplicated ground level fall at home. Patient found to have a large right pleural effusion. This could be an incidental finding, and not related to the fall Effusion likely from CHF given elevated BNP and legs swellings and also weight gain Now post thoracentesis with removal of almost 1 L of fluid Breathing is better per patient (2) Knee pain: Plan: Complains of right knee pain and swelling could be from osteoarthritis with some effusion Fracture and dislocation has been ruled out Orthopedics did not recommend any workup or intervention. Follow-up in the office upon discharge. (3) Elevated troponin: Plan: Mildly elevated trop Patient denies chest pain. No acute findings on EKG. Possible demand ischemia in setting of CHF -Telemetry monitoring -Trend troponin to peak -2D echo did not show any wall motion abnormalities (4) Hyponatremia: Plan: Improved (5) Adenocarcinoma of lung, stage 3: Plan: Noted. Patient is working with Pulmonary and Radiation Oncology to establish plan of care Seen in consultation by pulmonology during this hospital stay Questioning his functional/performance status that may limit therapeutic options May need discussion with palliative care Will address CODE STATUS Consult PT/OT (6) Elevated blood sugar: Plan: Patient with elevated blood sugar of 247. No history of diabetes. -A1c 6.4 -ISS Plan Await evaluation by PT. Likely will need placement. Admission and Anticipated Discharge Date Admission Date: April 12, 2024 Subjective Patient is not short of breath today. He is generally weak though. Denies chest pain. Review of Systems Review of Systems: All systems reviewed & are unremarkable except as noted in Subjective Physical Exam Physical Exam: General: Awake, conversant Heart: S1, S2/regular rate and rhythm, no murmur rubs or gallops Lungs: Diminished breath sounds at the right base Abdomen: Soft/nontender/nondistended. No hepatosplenomegaly Extremities: No clubbing/cyanosis. No edema. Right knee swelling noted Behavior: Appropriate, cooperative Results & Data Results & Data Vital Signs (Past 12 Hours) Vital Signs Temp Pulse Pulse Resp BP Pulse Ox O2 Del Method 04/15/24 12:00 83 18 120/73 94 Nasal Cannula 04/15/24 08:00 36.7 C 90 18 143/86 H 91 Nasal Cannula 04/15/24 07:45 Nasal Cannula 04/15/24 07:23 89 04/15/24 03:18 36.7 C 83 18 141/90 H 94 Nasal Cannula O2 Flow Rate 04/15/24 12:00 2 04/15/24 08:00 2 04/15/24 07:45 2.5 04/15/24 07:23 04/15/24 03:18 2 Laboratory Results Abnormal lab results 04/14/24 04/15/24 Range/Units 17:10 12:24 POC Glucose 143 H 169 H (70-99) mg/dl PG Care Time/CCT Total # of Minutes Spent Total Time Spent with Patient: Total time spent is greater than 50% in coordination of care (as documented) at patient's floor/unit and/or counseling patient: Coding Level of Care Code 59800 SUB INP/OBS CARE 2/35MIN Diagnoses Pleural effusion J90 Knee pain M25.569 Elevated troponin R77.8 Hyponatremia E87.1 Adenocarcinoma of lung, stage 3 C34.90 Elevated blood sugar R73.9
--- NOTE | 2024-04-16 09:15 | Pulmonology Progress Note ---
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 He was not completely staged as EBUS was never performed. However the PET scan did demonstrate moderate FDG uptake within N1 and N2 nodes. He presents now with generalized weakness and a fall. Has not been seen by medical oncology. He underwent repeat thoracentesis. He feels at his baseline. Recommendations: 1. Pleural effusion: Patient underwent RIGHT-sided thoracentesis 04/13 with a total of 900 mL of bloody fluid removed. Cytology negative. Chest x-ray today demonstrated some reaccumulation of the pleural fluid. Patient is not interested in additional pleural procedures currently. Would continue with diuresis. If he changes his mind, could consider repeat thoracentesis or potentially placement of a short-term drain. 2. Lung cancer: Patient has previously been established with Dr. Ephraim Abebe at [facility]. To follow-up with Dr. Abebe in the outpatient setting. Patient's performance status may limit therapeutic options 3. Declining functional status. Addressing CODE STATUS would be entirely appropriate as the patient appears significantly worse than when he saw him 3 months ago. He will likely require placement as he does not appear to be at a functional status which would allow him to go home. Despite this he is quite adamant that he is going home today. Will continue to follow with you. Feel free to contact us with questions or concerns Admission and Anticipated Discharge Date Admission Date: April 12, 2024 Subjective Patient seen and examined. EMR reviewed. He states he is leaving the hospital today 1 where the other. His breathing is fine. He offers no respiratory complaints whatsoever including cough, chest pain, shortness of breath. Review of Systems 2 Review of Systems: All systems reviewed & are unremarkable except as noted in Subjective Physical Exam 2 Physical Exam: VITAL SIGNS - Vital signs and nursing notes were reviewed. GENERAL - 83-year-old male appearing his stated age who is in no acute distress. LUNGS - Auscultation reveals diminished breath sounds with coarse sounding lungs at the bases. CARDIAC - RRR with S1/S2. No murmur, rubs, or gallops appreciated. Results & Data Results & Data Vital Signs (Past 12 Hours) Vital Signs Temp Pulse Pulse Resp BP BP Pulse Ox 04/16/24 07:48 36.8 C 86 16 134/88 95 04/16/24 07:11 83 04/16/24 03:01 36.5 C 85 18 134/86 98 04/15/24 23:06 36.8 C 78 18 125/78 93 04/15/24 21:57 89 O2 Del Method O2 Flow Rate 04/16/24 07:48 Room Air 04/16/24 07:11 04/16/24 03:01 Nasal Cannula 2 04/15/24 23:06 Nasal Cannula 2 04/15/24 21:57 Laboratory Results 04/14/24 06:21 04/14/24 06:21 PG Care Time/CCT Total # of Minutes Spent Total Time Spent with Patient: Total time spent is greater than 50% in coordination of care (as documented) at patient's floor/unit and/or counseling patient: Coding Level of Care Code 27258 SUB INP/OBS CARE 2/35MIN Diagnoses Pleural effusion J90 Adenocarcinoma of lung, stage 3 C34.90
--- NOTE | 2024-04-16 09:56 | XRay Report ---
XR chest 1V portable CLINICAL HISTORY: pleural effusion TECHNIQUE: Single frontal radiograph of the chest was obtained. Comparison: Comparison is made to chest radiograph 04/13/2024 FINDINGS: No lines and tubes are seen. Cardiomegaly is noted. The aortic arch is calcified. Right lower lung ai rspace opacity is seen. The lungs are clear. Moderate right pleural effusion, enlarged from prior exa m. Trace left effusion cannot be excluded. IMPRESSION: Moderate right pleural effusion has enlarged from the prior exam. ACT 112: Negative or not required by law. Electronically signed by: Asher Davidson M.D. 04/16/2024 9:54 AM
--- NOTE | 2024-04-16 15:03 | Hospitalist Progress Note ---
Date of Service April 16, 2024 Assessment & Plan (1) Pleural effusion: Plan: 83yo male with history of adenocarcinoma of the lung presenting after an uncomplicated ground level fall at home. Patient found to have a large right pleural effusion. This could be an incidental finding, and not related to the fall Effusion likely from CHF given elevated BNP and legs swellings and also weight gain Now post thoracentesis on 04/13 with removal of almost 1 L of fluid Breathing is better per patient Today's chest x-ray 04/16 showed reaccumulation of pleural fluid on the right side. Patient does not wish to have a repeat thoracentesis at this time. Continue diuresis (2) Knee pain: Plan: Complains of right knee pain and swelling could be from osteoarthritis with some effusion Fracture and dislocation has been ruled out Orthopedics did not recommend any workup or intervention. Follow-up in the office upon discharge. (3) Elevated troponin: Plan: Mildly elevated trop Patient denies chest pain. No acute findings on EKG. Possible demand ischemia in setting of CHF -Telemetry monitoring -Trend troponin to peak -2D echo did not show any wall motion abnormalities (4) Hyponatremia: Plan: Improved (5) Adenocarcinoma of lung, stage 3: Plan: Noted. Patient is working with Pulmonary and Radiation Oncology to establish plan of care Seen in consultation by pulmonology during this hospital stay Questioning his functional/performance status that may limit therapeutic options May need discussion with palliative care Patient agreed to change his CODE STATUS to DNR/DNI PT/OT recommending rehab, manager case to work on placement (6) Elevated blood sugar: Plan: Patient with elevated blood sugar of 247. No history of diabetes. -A1c 6.4 -ISS Plan PT/OT recommends rehab Admission and Anticipated Discharge Date Admission Date: April 12, 2024 Subjective Patient denies any chest pain or shortness of breath. Review of Systems Review of Systems: All systems reviewed & are unremarkable except as noted in Subjective Physical Exam Physical Exam: General: Awake, conversant Heart: S1, S2/regular rate and rhythm, no murmur rubs or gallops Lungs: Diminished breath sounds at the right base Abdomen: Soft/nontender/nondistended. No hepatosplenomegaly Extremities: No clubbing/cyanosis. No edema. Right knee swelling noted Behavior: Appropriate, cooperative Results & Data Results & Data Vital Signs (Past 12 Hours) Vital Signs Temp Pulse Pulse Resp BP Pulse Ox Pulse Ox 04/16/24 14:56 36.5 C 61 16 114/73 94 04/16/24 13:35 92 04/16/24 11:41 36.5 C 80 16 121/75 95 04/16/24 08:00 04/16/24 07:48 36.8 C 86 16 134/88 95 04/16/24 07:11 83 04/16/24 03:01 36.5 C 85 18 134/86 98 O2 Del Method O2 Flow Rate O2 Flow Rate 04/16/24 14:56 Nasal Cannula 2 04/16/24 13:35 2 04/16/24 11:41 Nasal Cannula 2 04/16/24 08:00 Nasal Cannula 2.5 04/16/24 07:48 Room Air 04/16/24 07:11 04/16/24 03:01 Nasal Cannula 2 Laboratory Results Abnormal lab results 04/15/24 04/16/24 Range/Units 20:15 12:07 POC Glucose 124 H 115 H (70-99) mg/dl Diagnostic Findings Chest X-Ray 04/16/24 07:00 XR chest 1V portable CLINICAL HISTORY: pleural effusion TECHNIQUE: Single frontal radiograph of the chest was obtained. Comparison: Comparison is made to chest radiograph 04/13/2024 FINDINGS: No lines and tubes are seen. Cardiomegaly is noted. The aortic arch is calcified. Right lower lung airspace opacity is seen. The lungs are clear. Moderate right pleural effusion, enlarged from prior exam. Trace left effusion cannot be excluded. IMPRESSION: Moderate right pleural effusion has enlarged from the prior exam. ACT 112: Negative or not required by law. Electronically signed by: Asher Davidson M.D. 04/16/2024 9:54 AM PG Care Time/CCT Total # of Minutes Spent Total Time Spent with Patient: Total time spent is greater than 50% in coordination of care (as documented) at patient's floor/unit and/or counseling patient: Coding Level of Care Code 83897 SUB INP/OBS CARE 2/35MIN Diagnoses Pleural effusion J90 Knee pain M25.569 Elevated troponin R77.8 Hyponatremia E87.1 Adenocarcinoma of lung, stage 3 C34.90 Elevated blood sugar R73.9
--- NOTE | 2024-04-17 10:49 | Pulmonology Progress Note ---
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 He was not completely staged as EBUS was never performed. However the PET scan did demonstrate moderate FDG uptake within N1 and N2 nodes. He presents now with generalized weakness and a fall. Has not been seen by medical oncology. He underwent repeat thoracentesis. He feels at his baseline. Recommendations: 1. Pleural effusion: Patient underwent RIGHT-sided thoracentesis 04/13 with a total of 900 mL of bloody fluid removed. Cytology negative. Chest x-ray today demonstrated some reaccumulation of the pleural fluid. Patient is not interested in additional pleural procedures currently. Would continue with diuresis. If he changes his mind, could consider repeat thoracentesis or potentially placement of a short-term drain. 2. Lung cancer: Patient has previously been established with Dr. Ephraim Abebe at [facility]. To follow-up with Dr. Abebe in the outpatient setting. Patient's performance status may limit therapeutic options. Recommend palliative care consultation consideration for possible hospice. I have no further recommendations at this time. Please call with questions. Thank you for the consult. Pulmonary sign off. Admission and Anticipated Discharge Date Admission Date: April 12, 2024 Subjective Patient seen and examined. Feels better today. Coughing up thin sputum at times which is chronic for him. Basically at home oxygen requirements of 2 L per Review of Systems Review of Systems: All systems reviewed & are unremarkable except as noted in HPI & below Physical Exam Physical Exam: VITAL SIGNS - Vital signs and nursing notes were reviewed. GENERAL - 83-year-old male appearing his stated age who is in no acute distress. LUNGS - Auscultation reveals diminished breath sounds with coarse sounding lungs at the bases. CARDIAC - RRR with S1/S2. No murmur, rubs, or gallops appreciated. Results & Data Results & Data Vital Signs (Past 12 Hours) Vital Signs Temp Pulse Resp BP Pulse Ox O2 Del Method O2 Flow Rate 04/17/24 07:51 Nasal Cannula 2 04/17/24 07:41 36.6 C 75 18 130/80 90 Nasal Cannula 2 04/17/24 03:09 36.5 C 90 18 127/85 97 Nasal Cannula 2 04/16/24 23:47 Nasal Cannula 2.5 04/16/24 23:38 36.5 C 88 18 149/93 H 96 Nasal Cannula PG Care Time/CCT Total # of Minutes Spent Total Time Spent with Patient: Total time spent is greater than 50% in coordination of care (as documented) at patient's floor/unit and/or counseling patient: Coding Level of Care Code 90341 SUB INP/OBS CARE 12/16MIN Diagnoses Pleural effusion J90 Adenocarcinoma of lung, stage 3 C34.90
--- NOTE | 2024-04-17 12:29 | Hospitalist Progress Note ---
Date of Service April 17, 2024 Assessment & Plan (1) Pleural effusion: Plan: 83yo male with history of adenocarcinoma of the lung presenting after an uncomplicated ground level fall at home. Patient found to have a large right pleural effusion. This could be an incidental finding, and not related to the fall Effusion likely from CHF given elevated BNP and legs swellings and also weight gain or related to cancer Now post thoracentesis on 04/13 with removal of almost 1 L of fluid Breathing is better per patient Chest x-ray 04/16 showed reaccumulation of pleural fluid on the right side. Patient is agreeable to proceed with thoracentesis if need be. Continue diuresis (2) Knee pain: Plan: Complains of right knee pain and swelling could be from osteoarthritis with some effusion Fracture and dislocation has been ruled out Orthopedics did not recommend any workup or intervention. Follow-up in the office upon discharge. (3) Elevated troponin: Plan: Mildly elevated trop Patient denies chest pain. No acute findings on EKG. Possible demand ischemia in setting of CHF -Telemetry monitoring -Trend troponin to peak -2D echo did not show any wall motion abnormalities (4) Hyponatremia: Plan: Improved (5) Adenocarcinoma of lung, stage 3: Plan: Noted. Patient is working with Pulmonary and Radiation Oncology to establish plan of care Seen in consultation by pulmonology during this hospital stay Questioning his functional/performance status that may limit therapeutic options May need discussion with palliative care Patient agreed to change his CODE STATUS to DNR/DNI PT/OT recommending rehab, case fitter to work on placement. Patient is agreeable with rehab placement (6) Elevated blood sugar: Plan: Patient with elevated blood sugar of 247. No history of diabetes. -A1c 6.4 -ISS Plan PT/OT recommends rehab Admission and Anticipated Discharge Date Admission Date: April 12, 2024 Subjective Patient feels well overall. Denies feeling short of breath. He understands that he is very weak and is willing to go to rehab Review of Systems Review of Systems: All systems reviewed & are unremarkable except as noted in Subjective Physical Exam Physical Exam: General: Awake, conversant Heart: S1, S2/regular rate and rhythm, no murmur rubs or gallops Lungs: Diminished breath sounds at the right base Abdomen: Soft/nontender/nondistended. No hepatosplenomegaly Extremities: No clubbing/cyanosis. No edema. Right knee swelling noted Behavior: Appropriate, cooperative Results & Data Results & Data Vital Signs (Past 12 Hours) Vital Signs Temp Pulse Pulse Resp BP Pulse Ox O2 Del Method 04/17/24 11:56 74 04/17/24 11:39 36.3 C L 93 H 18 97/64 L 92 Nasal Cannula 04/17/24 07:51 Nasal Cannula 04/17/24 07:41 36.6 C 75 18 130/80 90 Nasal Cannula 04/17/24 03:09 36.5 C 90 18 127/85 97 Nasal Cannula O2 Flow Rate 04/17/24 11:56 04/17/24 11:39 2 04/17/24 07:51 2 04/17/24 07:41 2 04/17/24 03:09 2 Laboratory Results Abnormal lab results 04/16/24 04/17/24 Range/Units 16:59 12:00 POC Glucose 105 H 124 H (70-99) mg/dl PG Care Time/CCT Total # of Minutes Spent Total Time Spent with Patient: Total time spent is greater than 50% in coordination of care (as documented) at patient's floor/unit and/or counseling patient: Coding Level of Care Code 52805 SUB INP/OBS CARE 2/35MIN Diagnoses Pleural effusion J90 Knee pain M25.569 Elevated troponin R77.8 Hyponatremia E87.1 Adenocarcinoma of lung, stage 3 C34.90 Elevated blood sugar R73.9
--- NOTE | 2024-04-17 21:15 | Palliative Care Consultation ---
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 He states he is very tired and wants to sleep. Will re attempt tomorrow. Thank you for allowing us to participate in the ongoing care of this patient. Please don't hesitate to call or page with any additional concerns. Dr. Lizeth Wray DNP Director, Palliative Care History of Present Illness Reason for Consultation: On 04/17/24 @ 12:48 Giovany Stock Wrote To Lizeth Wray Lung cancer. Weakness limiting cancer Rx Attending Physician: Giovany Stock MD History of Present Illness Mr. Sohan Gaytan is an 83-year-old gentleman with history of Stage IIIa mucinous adenoca/lung who came to [facility] ER 04/12/24 s/p fall at home. He was recently dx with his lung cancer after biopsy 02/09/24. He was not stable for anesthesia therefore LN biopsies were not done. MRI [facility] 02/25/24 without met disease reported PS has been steadily declining. He is smoker with known smoking related COPD, pulm HTN and HTN. Per ER notes: "Patient states that earlier today his legs got "weak" and he fell. Patient does not have any focal complaint of pain on arrival, he denies any loss of consciousness. Patient states this occurred when he was ambulating with his walker. Patient states that he fell gently onto his right buttocks. On arrival here to the ED the patient is initially hypoxic on 2 L nasal cannula oxygen at 87%, he is otherwise hemodynamically stable. Patient states that shortness of breath seem to be worsening throughout the day today. Patient's oxygen was increased to 4 L nasal cannula with good improvement in initial hypoxia. On arrival here to the ED the patient denies any focal complaint of pain, he maintains flexion at the hips bilaterally and ambulates all 4 extremities spontaneously without issue." He was found to have a right pleural effusion CHF flare also suspected: elevation of troponin=23.3 and BXX=1844. He has bilateral LE edema and some weight gain (82.2kg on 02/14/24 vs admission weight 84.8kg). He had a thoracentesis 04/12/24: 900ml fluid removed, sent for testing. Repeat Echo 04/13/24: LVF WNL, no RWMA's, mode LVH, EF 50-55%, mild MR, no change from echo Sep 2023. Pt has been seen by Dr Abebe at [facility] He is awaiting possible rad onc eval 04/16/24: fluid reaccumulation on right lung, he remains on diuresis Per chart review, overall concern remains pt advanced age + declining PS + adv cancer with overall likely poor prognosis and short anticipated survival - - likelihood he would be able to safely tolerate cancer directed therapies in the current context of ECOG 3+ is very low. Pt seen bedside, no family present he is somnolent and did not interact with me. he would not awaken to loud voice but did open eyes to touch. he states he does not want to be bothered/not in mood to talk to anyone and asked I return tomorrow. Allergies Allergy/AdvReac Type Severity Reaction Status Date / Time No Known Allergies Allergy Verified 04/12/24 21:49 Home Medications Medication Instructions Recorded Confirmed Type cholecalciferol (vitamin D3) 25 2,000 units PO QAM 08/23/19 04/12/24 History mcg (1,000 unit) tablet aspirin 81 mg tablet,delayed 81 mg PO QAM 12/17/19 04/12/24 History release Portable Oxygen #1 ea 07/01/23 02/11/24 Rx Wheeled Walker #1 ea 07/01/23 02/11/24 Rx acetaminophen 500 mg tablet 500 mg PO Q6H PRN Pain 10/20/23 04/12/24 History (Tylenol Extra Strength) gabapentin 300 mg capsule 300 mg PO BID PRN pain #60 caps 01/14/24 04/12/24 Rx ipratropium 0.5 mg-albuterol 3 mg 3 ml NEB QID PRN Shortness Of 02/03/24 04/12/24 History (2.5 mg base)/3 mL nebulization Breath Or Wheezing soln methimazole 10 mg tablet 10 mg PO QAM 02/03/24 04/12/24 History fluticasone furoate 100 1 inh inhalation DAILY #30 ea 02/07/24 04/12/24 Rx mcg/actuation blister powder for inhalation (Arnuity Ellipta) tamsulosin 0.4 mg capsule 0.4 mg PO QAM #90 caps 03/20/24 04/12/24 Rx furosemide 20 mg tablet See Rx Instructions .Route .COMPLEX 04/12/24 04/12/24 History Patient History Medical History Hypertension Sensorineural hearing loss (SNHL) of both ears Cor pulmonale Pulmonary hypertension Pulmonary nodule RLL Chronic kidney disease History of shingles takes gabapentin for pain Hyperthyroidism Emphysema/COPD Lymphoma (~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 Surgical History History of nasal surgery (~2014) due to CA Hx of esophagogastroduodenoscopy Hx of colonoscopy H/O varicose vein ligation Family History Father , Age 91 Renal failure Mother Breast cancer Denies family history of Ovarian cancer Prostate cancer Myocardial infarction Colorectal cancer Social History Smoking Status: Former smoker Tobacco Type: Cigarettes Age Started Using Tobacco: 18; Age Quit Using Tobacco: 61; Cigarettes Per Day: 1 PPD; Second Hand Exposure: No; Do You Dip or Chew Tobacco: No; Hx Alcohol Use: No Hx Substance Use: No Preferred Language: Romansh Communication Ability: Effective Visual Impairment: No Limitations Hearing Ability: Hard of Hearing Staff Development Educator Required: No Beliefs That Will Affect Care: None marital status: Current Living Situation: Spouse current occupational status: retired How many Children do You have: 1 Feels Safe at Home: Yes Childhood Exposure to Second-Hand Smoke: No Diet: regular caffeine: Yes Dental Care, Regularly: No Physical Activity Frequency: Does not Exercise Seatbelt Use: always Sunscreen Use: No Assistive Devices: Oxygen - at Night and Walker Review of Systems Review of Systems: Other (pt somnolent) Physical Exam Physical Exam: frail elderly male chronically ill appearing bitemp wasting perrla neck supple, no stridor inc resp effort with use of accessory muscles frequent bronchitic cough with moderate amounts clear mucus rhonchorous breath sounds bilat, diminished right with crackles s1s2 no gross JVD abd soft, NTP, BS+ +gen weakness alert to self, place, unsure of date/time but could tell me it was mid day skin pale, cool Results & Data Vital Signs (Past 12 Hours) Vital Signs Temp Pulse Pulse Resp BP Pulse Ox O2 Del Method 04/17/24 19:23 36.8 C 97 H 18 113/70 94 Nasal Cannula 04/17/24 16:43 84 04/17/24 15:32 37.1 C 78 18 122/73 94 Room Air 04/17/24 11:56 74 04/17/24 11:39 36.3 C L 93 H 18 97/64 L 92 Nasal Cannula O2 Flow Rate 04/17/24 19:23 2 04/17/24 16:43 04/17/24 15:32 04/17/24 11:56 04/17/24 11:39 2 Laboratory Results 04/17/24 04/17/24 04/17/24 Range/Units 20:06 17:10 12:00 WBC (4.8-10.8) K/ul RBC (4.70-6.10) M/uL Hgb (14.0-18.0) g/dl Hct (42.0-52.0) % MCV (80.0-100.0) fL MCH (25.0-34.0) pg MCHC (32.0-36.0) g/dL RDW Std Deviation (36.4-46.3) fL RDW Coeff of Chantal (11.5-14.5) % Plt Count (130-400) K/uL MPV (9.4-12.4) fL Immature Gran % (Auto) % Neut % (Auto) % Lymph % (Auto) % [place] % (Auto) % Eos % (Auto) % Baso % (Auto) % Neut # (Auto) (1.40-6.50) K/uL Lymph # (Auto) (1.20-3.40) K/uL [place] # (Auto) (0.11-0.59) K/uL Eos # (Auto) (0.00-0.50) K/uL Baso # (Auto) (0.00-0.20) K/uL Immature Gran # (Auto) (0.01-0.20) K/uL PT (9.0-12.0) Seconds INR (0.9-1.1) VBG pH (7.36-7.41) VBG pCO2 (38-50) mmHg VBG pO2 mmHg VBG HCO3 mmol/L VBG O2 Saturation % VBG Base Excess mEq/L Sodium (136-145) mmol/L Potassium (3.5-5.1) mmol/L Chloride (98-107) mmol/L Carbon Dioxide (21-32) mmol/L Anion Gap (3-11) BUN (6-23) mg/dl Creatinine (0.6-1.4) mg/dl Est Cr Clr Drug Dosing ml/min Est GFR ( Amer) ml/min Est GFR (Non-Af Amer) ml/min BUN/Creatinine Ratio (10-20) Glucose (70-99(Fasting)) mg/dl POC Glucose 113 H 131 H 124 H (70-99) mg/dl Estimat Average Glucose mg/dl Hemoglobin A1c (4.5-5.6) % Osmolality (280-300) mOsm/kg Calcium (8.6-10.3) mg/dl Phosphorus (2.5-4.9) mg/dl Magnesium (1.7-2.4) mg/dl Total Bilirubin (0.2-1.0) mg/dl AST (13-39) U/L ALT (7-52) U/L Alkaline Phosphatase (34-104) U/L Troponin I High Sens (0-20) pg/ml B-Natriuretic Peptide (0-100) pg/ml Total Protein (6.0-8.3) gm/dl Albumin (3.4-5.0) gm/dl Globulin (2.5-4.0) gm/dl Albumin/Globulin Ratio (0.9-2) Urine Color Urine Appearance (Clear) Urine pH (4.5-7.5) Ur Specific [place] (1.000-1.030) Urine Protein (Negative) Urine Glucose (UA) (Negative) Urine Ketones (Negative) Urine Blood (Negative) Urine Nitrite (Negative) Urine Bilirubin (Negative) Urine Urobilinogen (Negative) Ur Leukocyte Esterase (Negative) Urine Osmolality (500-800) mOsm/kg Ur Random Sodium mmol/L Fluid Neutrophils % % Fluid Lymphocytes % % Fluid Meso/Macro/[place] % % Fluid Comment Pleural Fluid Source Pleural Color Pleural Appearance Pleural pH (7.3-7.4) Pleural WBC (Auto) /uL Pleural RBC (Auto) /uL Pleural Total Protein gm/dl Pleural LDH U/L Pleural Glucose mg/dl 04/17/24 04/16/24 04/16/24 Range/Units 07:57 20:29 16:59 WBC (4.8-10.8) K/ul RBC (4.70-6.10) M/uL Hgb (14.0-18.0) g/dl Hct (42.0-52.0) % MCV (80.0-100.0) fL MCH (25.0-34.0) pg MCHC (32.0-36.0) g/dL RDW Std Deviation (36.4-46.3) fL RDW Coeff of Chantal (11.5-14.5) % Plt Count (130-400) K/uL MPV (9.4-12.4) fL Immature Gran % (Auto) % Neut % (Auto) % Lymph % (Auto) % [place] % (Auto) % Eos % (Auto) % Baso % (Auto) % Neut # (Auto) (1.40-6.50) K/uL Lymph # (Auto) (1.20-3.40) K/uL [place] # (Auto) (0.11-0.59) K/uL Eos # (Auto) (0.00-0.50) K/uL Baso # (Auto) (0.00-0.20) K/uL Immature Gran # (Auto) (0.01-0.20) K/uL PT (9.0-12.0) Seconds INR (0.9-1.1) VBG pH (7.36-7.41) VBG pCO2 (38-50) mmHg VBG pO2 mmHg VBG HCO3 mmol/L VBG O2 Saturation % VBG Base Excess mEq/L Sodium (136-145) mmol/L Potassium (3.5-5.1) mmol/L Chloride (98-107) mmol/L Carbon Dioxide (21-32) mmol/L Anion Gap (3-11) BUN (6-23) mg/dl Creatinine (0.6-1.4) mg/dl Est Cr Clr Drug Dosing ml/min Est GFR ( Amer) ml/min Est GFR (Non-Af Amer) ml/min BUN/Creatinine Ratio (10-20) Glucose (70-99(Fasting)) mg/dl POC Glucose 76 93 105 H (70-99) mg/dl Estimat Average Glucose mg/dl Hemoglobin A1c (4.5-5.6) % Osmolality (280-300) mOsm/kg Calcium (8.6-10.3) mg/dl Phosphorus (2.5-4.9) mg/dl Magnesium (1.7-2.4) mg/dl Total Bilirubin (0.2-1.0) mg/dl AST (13-39) U/L ALT (7-52) U/L Alkaline Phosphatase (34-104) U/L Troponin I High Sens (0-20) pg/ml B-Natriuretic Peptide (0-100) pg/ml Total Protein (6.0-8.3) gm/dl Albumin (3.4-5.0) gm/dl Globulin (2.5-4.0) gm/dl Albumin/Globulin Ratio (0.9-2) Urine Color Urine Appearance (Clear) Urine pH (4.5-7.5) Ur Specific [place] (1.000-1.030) Urine Protein (Negative) Urine Glucose (UA) (Negative) Urine Ketones (Negative) Urine Blood (Negative) Urine Nitrite (Negative) Urine Bilirubin (Negative) Urine Urobilinogen (Negative) Ur Leukocyte Esterase (Negative) Urine Osmolality (500-800) mOsm/kg Ur Random Sodium mmol/L Fluid Neutrophils % % Fluid Lymphocytes % % Fluid Meso/Macro/[place] % % Fluid Comment Pleural Fluid Source Pleural Color Pleural Appearance Pleural pH (7.3-7.4) Pleural WBC (Auto) /uL Pleural RBC (Auto) /uL Pleural Total Protein gm/dl Pleural LDH U/L Pleural Glucose mg/dl 04/16/24 04/16/24 04/15/24 Range/Units 12:07 08:13 20:15 WBC (4.8-10.8) K/ul RBC (4.70-6.10) M/uL Hgb (14.0-18.0) g/dl Hct (42.0-52.0) % MCV (80.0-100.0) fL MCH (25.0-34.0) pg MCHC (32.0-36.0) g/dL RDW Std Deviation (36.4-46.3) fL RDW Coeff of Chantal (11.5-14.5) % Plt Count (130-400) K/uL MPV (9.4-12.4) fL Immature Gran % (Auto) % Neut % (Auto) % Lymph % (Auto) % [place] % (Auto) % Eos % (Auto) % Baso % (Auto) % Neut # (Auto) (1.40-6.50) K/uL Lymph # (Auto) (1.20-3.40) K/uL [place] # (Auto) (0.11-0.59) K/uL Eos # (Auto) (0.00-0.50) K/uL Baso # (Auto) (0.00-0.20) K/uL Immature Gran # (Auto) (0.01-0.20) K/uL PT (9.0-12.0) Seconds INR (0.9-1.1) VBG pH (7.36-7.41) VBG pCO2 (38-50) mmHg VBG pO2 mmHg VBG HCO3 mmol/L VBG O2 Saturation % VBG Base Excess mEq/L Sodium (136-145) mmol/L Potassium (3.5-5.1) mmol/L Chloride (98-107) mmol/L Carbon Dioxide (21-32) mmol/L Anion Gap (3-11) BUN (6-23) mg/dl Creatinine (0.6-1.4) mg/dl Est Cr Clr Drug Dosing ml/min Est GFR ( Amer) ml/min Est GFR (Non-Af Amer) ml/min BUN/Creatinine Ratio (10-20) Glucose (70-99(Fasting)) mg/dl POC Glucose 115 H 83 124 H (70-99) mg/dl Estimat Average Glucose mg/dl Hemoglobin A1c (4.5-5.6) % Osmolality (280-300) mOsm/kg Calcium (8.6-10.3) mg/dl Phosphorus (2.5-4.9) mg/dl Magnesium (1.7-2.4) mg/dl Total Bilirubin (0.2-1.0) mg/dl AST (13-39) U/L ALT (7-52) U/L Alkaline Phosphatase (34-104) U/L Troponin I High Sens (0-20) pg/ml B-Natriuretic Peptide (0-100) pg/ml Total Protein (6.0-8.3) gm/dl Albumin (3.4-5.0) gm/dl Globulin (2.5-4.0) gm/dl Albumin/Globulin Ratio (0.9-2) Urine Color Urine Appearance (Clear) Urine pH (4.5-7.5) Ur Specific [place] (1.000-1.030) Urine Protein (Negative) Urine Glucose (UA) (Negative) Urine Ketones (Negative) Urine Blood (Negative) Urine Nitrite (Negative) Urine Bilirubin (Negative) Urine Urobilinogen (Negative) Ur Leukocyte Esterase (Negative) Urine Osmolality (500-800) mOsm/kg Ur Random Sodium mmol/L Fluid Neutrophils % % Fluid Lymphocytes % % Fluid Meso/Macro/[place] % % Fluid Comment Pleural Fluid Source Pleural Color Pleural Appearance Pleural pH (7.3-7.4) Pleural WBC (Auto) /uL Pleural RBC (Auto) /uL Pleural Total Protein gm/dl Pleural LDH U/L Pleural Glucose mg/dl 04/15/24 04/15/24 04/15/24 Range/Units 16:21 12:24 08:05 WBC (4.8-10.8) K/ul RBC (4.70-6.10) M/uL Hgb (14.0-18.0) g/dl Hct (42.0-52.0) % MCV (80.0-100.0) fL MCH (25.0-34.0) pg MCHC (32.0-36.0) g/dL RDW Std Deviation (36.4-46.3) fL RDW Coeff of Chantal (11.5-14.5) % Plt Count (130-400) K/uL MPV (9.4-12.4) fL Immature Gran % (Auto) % Neut % (Auto) % Lymph % (Auto) % [place] % (Auto) % Eos % (Auto) % Baso % (Auto) % Neut # (Auto) (1.40-6.50) K/uL Lymph # (Auto) (1.20-3.40) K/uL [place] # (Auto) (0.11-0.59) K/uL Eos # (Auto) (0.00-0.50) K/uL Baso # (Auto) (0.00-0.20) K/uL Immature Gran # (Auto) (0.01-0.20) K/uL PT (9.0-12.0) Seconds INR (0.9-1.1) VBG pH (7.36-7.41) VBG pCO2 (38-50) mmHg VBG pO2 mmHg VBG HCO3 mmol/L VBG O2 Saturation % VBG Base Excess mEq/L Sodium (136-145) mmol/L Potassium (3.5-5.1) mmol/L Chloride (98-107) mmol/L Carbon Dioxide (21-32) mmol/L Anion Gap (3-11) BUN (6-23) mg/dl Creatinine (0.6-1.4) mg/dl Est Cr Clr Drug Dosing ml/min Est GFR ( Amer) ml/min Est GFR (Non-Af Amer) ml/min BUN/Creatinine Ratio (10-20) Glucose (70-99(Fasting)) mg/dl POC Glucose 82 169 H 89 (70-99) mg/dl Estimat Average Glucose mg/dl Hemoglobin A1c (4.5-5.6) % Osmolality (280-300) mOsm/kg Calcium (8.6-10.3) mg/dl Phosphorus (2.5-4.9) mg/dl Magnesium (1.7-2.4) mg/dl Total Bilirubin (0.2-1.0) mg/dl AST (13-39) U/L ALT (7-52) U/L Alkaline Phosphatase (34-104) U/L Troponin I High Sens (0-20) pg/ml B-Natriuretic Peptide (0-100) pg/ml Total Protein (6.0-8.3) gm/dl Albumin (3.4-5.0) gm/dl Globulin (2.5-4.0) gm/dl Albumin/Globulin Ratio (0.9-2) Urine Color Urine Appearance (Clear) Urine pH (4.5-7.5) Ur Specific [place] (1.000-1.030) Urine Protein (Negative) Urine Glucose (UA) (Negative) Urine Ketones (Negative) Urine Blood (Negative) Urine Nitrite (Negative) Urine Bilirubin (Negative) Urine Urobilinogen (Negative) Ur Leukocyte Esterase (Negative) Urine Osmolality (500-800) mOsm/kg Ur Random Sodium mmol/L Fluid Neutrophils % % Fluid Lymphocytes % % Fluid Meso/Macro/[place] % % Fluid Comment Pleural Fluid Source Pleural Color Pleural Appearance Pleural pH (7.3-7.4) Pleural WBC (Auto) /uL Pleural RBC (Auto) /uL Pleural Total Protein gm/dl Pleural LDH U/L Pleural Glucose mg/dl 04/14/24 04/14/24 04/14/24 Range/Units 20:30 17:10 12:21 WBC (4.8-10.8) K/ul RBC (4.70-6.10) M/uL Hgb (14.0-18.0) g/dl Hct (42.0-52.0) % MCV (80.0-100.0) fL MCH (25.0-34.0) pg MCHC (32.0-36.0) g/dL RDW Std Deviation (36.4-46.3) fL RDW Coeff of Chantal (11.5-14.5) % Plt Count (130-400) K/uL MPV (9.4-12.4) fL Immature Gran % (Auto) % Neut % (Auto) % Lymph % (Auto) % [place] % (Auto) % Eos % (Auto) % Baso % (Auto) % Neut # (Auto) (1.40-6.50) K/uL Lymph # (Auto) (1.20-3.40) K/uL [place] # (Auto) (0.11-0.59) K/uL Eos # (Auto) (0.00-0.50) K/uL Baso # (Auto) (0.00-0.20) K/uL Immature Gran # (Auto) (0.01-0.20) K/uL PT (9.0-12.0) Seconds INR (0.9-1.1) VBG pH (7.36-7.41) VBG pCO2 (38-50) mmHg VBG pO2 mmHg VBG HCO3 mmol/L VBG O2 Saturation % VBG Base Excess mEq/L Sodium (136-145) mmol/L Potassium (3.5-5.1) mmol/L Chloride (98-107) mmol/L Carbon Dioxide (21-32) mmol/L Anion Gap (3-11) BUN (6-23) mg/dl Creatinine (0.6-1.4) mg/dl Est Cr Clr Drug Dosing ml/min Est GFR ( Amer) ml/min Est GFR (Non-Af Amer) ml/min BUN/Creatinine Ratio (10-20) Glucose (70-99(Fasting)) mg/dl POC Glucose 76 143 H 126 H (70-99) mg/dl Estimat Average Glucose mg/dl Hemoglobin A1c (4.5-5.6) % Osmolality (280-300) mOsm/kg Calcium (8.6-10.3) mg/dl Phosphorus (2.5-4.9) mg/dl Magnesium (1.7-2.4) mg/dl Total Bilirubin (0.2-1.0) mg/dl AST (13-39) U/L ALT (7-52) U/L Alkaline Phosphatase (34-104) U/L Troponin I High Sens (0-20) pg/ml B-Natriuretic Peptide (0-100) pg/ml Total Protein (6.0-8.3) gm/dl Albumin (3.4-5.0) gm/dl Globulin (2.5-4.0) gm/dl Albumin/Globulin Ratio (0.9-2) Urine Color Urine Appearance (Clear) Urine pH (4.5-7.5) Ur Specific [place] (1.000-1.030) Urine Protein (Negative) Urine Glucose (UA) (Negative) Urine Ketones (Negative) Urine Blood (Negative) Urine Nitrite (Negative) Urine Bilirubin (Negative) Urine Urobilinogen (Negative) Ur Leukocyte Esterase (Negative) Urine Osmolality (500-800) mOsm/kg Ur Random Sodium mmol/L Fluid Neutrophils % % Fluid Lymphocytes % % Fluid Meso/Macro/[place] % % Fluid Comment Pleural Fluid Source Pleural Color Pleural Appearance Pleural pH (7.3-7.4) Pleural WBC (Auto) /uL Pleural RBC (Auto) /uL Pleural Total Protein gm/dl Pleural LDH U/L Pleural Glucose mg/dl 04/14/24 04/14/24 04/14/24 Range/Units 12:20 07:51 06:21 WBC 7.02 (4.8-10.8) K/ul RBC 4.45 L (4.70-6.10) M/uL Hgb 12.9 L (14.0-18.0) g/dl Hct 38.7 L (42.0-52.0) % MCV 87.0 (80.0-100.0) fL MCH 29.0 (25.0-34.0) pg MCHC 33.3 (32.0-36.0) g/dL RDW Std Deviation 42.9 (36.4-46.3) fL RDW Coeff of Chantal 13.5 (11.5-14.5) % Plt Count 254 (130-400) K/uL MPV 10.2 (9.4-12.4) fL Immature Gran % (Auto) % Neut % (Auto) % Lymph % (Auto) % [place] % (Auto) % Eos % (Auto) % Baso % (Auto) % Neut # (Auto) (1.40-6.50) K/uL Lymph # (Auto) (1.20-3.40) K/uL [place] # (Auto) (0.11-0.59) K/uL Eos # (Auto) (0.00-0.50) K/uL Baso # (Auto) (0.00-0.20) K/uL Immature Gran # (Auto) (0.01-0.20) K/uL PT (9.0-12.0) Seconds INR (0.9-1.1) VBG pH (7.36-7.41) VBG pCO2 (38-50) mmHg VBG pO2 mmHg VBG HCO3 mmol/L VBG O2 Saturation % VBG Base Excess mEq/L Sodium 133 L (136-145) mmol/L Potassium 4.2 (3.5-5.1) mmol/L Chloride 95 L (98-107) mmol/L Carbon Dioxide 33 H (21-32) mmol/L Anion Gap 5 (3-11) BUN 25 H (6-23) mg/dl Creatinine 1.40 (0.6-1.4) mg/dl Est Cr Clr Drug Dosing 40.9 ml/min Est GFR ( Amer) 52.7 ml/min Est GFR (Non-Af Amer) 45.5 ml/min BUN/Creatinine Ratio 17.9 (10-20) Glucose 90 (70-99(Fasting)) mg/dl POC Glucose 92 (70-99) mg/dl Estimat Average Glucose mg/dl Hemoglobin A1c (4.5-5.6) % Osmolality (280-300) mOsm/kg Calcium 8.2 L (8.6-10.3) mg/dl Phosphorus (2.5-4.9) mg/dl Magnesium (1.7-2.4) mg/dl Total Bilirubin (0.2-1.0) mg/dl AST (13-39) U/L ALT (7-52) U/L Alkaline Phosphatase (34-104) U/L Troponin I High Sens (0-20) pg/ml B-Natriuretic Peptide (0-100) pg/ml Total Protein (6.0-8.3) gm/dl Albumin (3.4-5.0) gm/dl Globulin (2.5-4.0) gm/dl Albumin/Globulin Ratio (0.9-2) Urine Color Urine Appearance (Clear) Urine pH (4.5-7.5) Ur Specific [place] (1.000-1.030) Urine Protein (Negative) Urine Glucose (UA) (Negative) Urine Ketones (Negative) Urine Blood (Negative) Urine Nitrite (Negative) Urine Bilirubin (Negative) Urine Urobilinogen (Negative) Ur Leukocyte Esterase (Negative) Urine Osmolality 315 L (500-800) mOsm/kg Ur Random Sodium 92 mmol/L Fluid Neutrophils % % Fluid Lymphocytes % % Fluid Meso/Macro/[place] % % Fluid Comment Pleural Fluid Source Pleural Color Pleural Appearance Pleural pH (7.3-7.4) Pleural WBC (Auto) /uL Pleural RBC (Auto) /uL Pleural Total Protein gm/dl Pleural LDH U/L Pleural Glucose mg/dl 04/13/24 04/13/24 04/13/24 Range/Units Unknown 20:15 17:26 WBC (4.8-10.8) K/ul RBC (4.70-6.10) M/uL Hgb (14.0-18.0) g/dl Hct (42.0-52.0) % MCV (80.0-100.0) fL MCH (25.0-34.0) pg MCHC (32.0-36.0) g/dL RDW Std Deviation (36.4-46.3) fL RDW Coeff of Chantal (11.5-14.5) % Plt Count (130-400) K/uL MPV (9.4-12.4) fL Immature Gran % (Auto) % Neut % (Auto) % Lymph % (Auto) % [place] % (Auto) % Eos % (Auto) % Baso % (Auto) % Neut # (Auto) (1.40-6.50) K/uL Lymph # (Auto) (1.20-3.40) K/uL [place] # (Auto) (0.11-0.59) K/uL Eos # (Auto) (0.00-0.50) K/uL Baso # (Auto) (0.00-0.20) K/uL Immature Gran # (Auto) (0.01-0.20) K/uL PT (9.0-12.0) Seconds INR (0.9-1.1) VBG pH (7.36-7.41) VBG pCO2 (38-50) mmHg VBG pO2 mmHg VBG HCO3 mmol/L VBG O2 Saturation % VBG Base Excess mEq/L Sodium (136-145) mmol/L Potassium (3.5-5.1) mmol/L Chloride (98-107) mmol/L Carbon Dioxide (21-32) mmol/L Anion Gap (3-11) BUN (6-23) mg/dl Creatinine (0.6-1.4) mg/dl Est Cr Clr Drug Dosing ml/min Est GFR ( Amer) ml/min Est GFR (Non-Af Amer) ml/min BUN/Creatinine Ratio (10-20) Glucose (70-99(Fasting)) mg/dl POC Glucose 143 H 116 H (70-99) mg/dl Estimat Average Glucose mg/dl Hemoglobin A1c (4.5-5.6) % Osmolality (280-300) mOsm/kg Calcium (8.6-10.3) mg/dl Phosphorus (2.5-4.9) mg/dl Magnesium (1.7-2.4) mg/dl Total Bilirubin (0.2-1.0) mg/dl AST (13-39) U/L ALT (7-52) U/L Alkaline Phosphatase (34-104) U/L Troponin I High Sens (0-20) pg/ml B-Natriuretic Peptide (0-100) pg/ml Total Protein (6.0-8.3) gm/dl Albumin (3.4-5.0) gm/dl Globulin (2.5-4.0) gm/dl Albumin/Globulin Ratio (0.9-2) Urine Color Urine Appearance (Clear) Urine pH (4.5-7.5) Ur Specific [place] (1.000-1.030) Urine Protein (Negative) Urine Glucose (UA) (Negative) Urine Ketones (Negative) Urine Blood (Negative) Urine Nitrite (Negative) Urine Bilirubin (Negative) Urine Urobilinogen (Negative) Ur Leukocyte Esterase (Negative) Urine Osmolality (500-800) mOsm/kg Ur Random Sodium mmol/L Fluid Neutrophils % 1 % Fluid Lymphocytes % 61 % Fluid Meso/Macro/[place] % 38 % Fluid Comment Pleural Fluid Source Right Lung Pleural Color Red Pleural Appearance Cloudy Pleural pH 7.53 H (7.3-7.4) Pleural WBC (Auto) 1996 /uL Pleural RBC (Auto) 02033 /uL Pleural Total Protein 3.6 gm/dl Pleural LDH 205 U/L Pleural Glucose 104 mg/dl 04/13/24 04/13/24 04/13/24 Range/Units 13:03 10:42 08:54 WBC (4.8-10.8) K/ul RBC (4.70-6.10) M/uL Hgb (14.0-18.0) g/dl Hct (42.0-52.0) % MCV (80.0-100.0) fL MCH (25.0-34.0) pg MCHC (32.0-36.0) g/dL RDW Std Deviation (36.4-46.3) fL RDW Coeff of Chantal (11.5-14.5) % Plt Count (130-400) K/uL MPV (9.4-12.4) fL Immature Gran % (Auto) % Neut % (Auto) % Lymph % (Auto) % [place] % (Auto) % Eos % (Auto) % Baso % (Auto) % Neut # (Auto) (1.40-6.50) K/uL Lymph # (Auto) (1.20-3.40) K/uL [place] # (Auto) (0.11-0.59) K/uL Eos # (Auto) (0.00-0.50) K/uL Baso # (Auto) (0.00-0.20) K/uL Immature Gran # (Auto) (0.01-0.20) K/uL PT (9.0-12.0) Seconds INR (0.9-1.1) VBG pH (7.36-7.41) VBG pCO2 (38-50) mmHg VBG pO2 mmHg VBG HCO3 mmol/L VBG O2 Saturation % VBG Base Excess mEq/L Sodium (136-145) mmol/L Potassium (3.5-5.1) mmol/L Chloride (98-107) mmol/L Carbon Dioxide (21-32) mmol/L Anion Gap (3-11) BUN (6-23) mg/dl Creatinine (0.6-1.4) mg/dl Est Cr Clr Drug Dosing ml/min Est GFR ( Amer) ml/min Est GFR (Non-Af Amer) ml/min BUN/Creatinine Ratio (10-20) Glucose (70-99(Fasting)) mg/dl POC Glucose 90 87 (70-99) mg/dl Estimat Average Glucose mg/dl Hemoglobin A1c (4.5-5.6) % Osmolality (280-300) mOsm/kg Calcium (8.6-10.3) mg/dl Phosphorus (2.5-4.9) mg/dl Magnesium (1.7-2.4) mg/dl Total Bilirubin (0.2-1.0) mg/dl AST (13-39) U/L ALT (7-52) U/L Alkaline Phosphatase (34-104) U/L Troponin I High Sens 36.4 H D (0-20) pg/ml B-Natriuretic Peptide (0-100) pg/ml Total Protein (6.0-8.3) gm/dl Albumin (3.4-5.0) gm/dl Globulin (2.5-4.0) gm/dl Albumin/Globulin Ratio (0.9-2) Urine Color Urine Appearance (Clear) Urine pH (4.5-7.5) Ur Specific [place] (1.000-1.030) Urine Protein (Negative) Urine Glucose (UA) (Negative) Urine Ketones (Negative) Urine Blood (Negative) Urine Nitrite (Negative) Urine Bilirubin (Negative) Urine Urobilinogen (Negative) Ur Leukocyte Esterase (Negative) Urine Osmolality (500-800) mOsm/kg Ur Random Sodium mmol/L Fluid Neutrophils % % Fluid Lymphocytes % % Fluid Meso/Macro/[place] % % Fluid Comment Pleural Fluid Source Pleural Color Pleural Appearance Pleural pH (7.3-7.4) Pleural WBC (Auto) /uL Pleural RBC (Auto) /uL Pleural Total Protein gm/dl Pleural LDH U/L Pleural Glucose mg/dl 04/13/24 04/12/24 04/12/24 Range/Units 04:04 21:11 20:48 WBC 6.82 (4.8-10.8) K/ul RBC 4.32 L (4.70-6.10) M/uL Hgb 12.7 L (14.0-18.0) g/dl Hct 37.4 L (42.0-52.0) % MCV 86.6 (80.0-100.0) fL MCH 29.4 (25.0-34.0) pg MCHC 34.0 (32.0-36.0) g/dL RDW Std Deviation 42.3 (36.4-46.3) fL RDW Coeff of Chantal 13.5 (11.5-14.5) % Plt Count 249 (130-400) K/uL MPV 10.5 (9.4-12.4) fL Immature Gran % (Auto) % Neut % (Auto) % Lymph % (Auto) % [place] % (Auto) % Eos % (Auto) % Baso % (Auto) % Neut # (Auto) (1.40-6.50) K/uL Lymph # (Auto) (1.20-3.40) K/uL [place] # (Auto) (0.11-0.59) K/uL Eos # (Auto) (0.00-0.50) K/uL Baso # (Auto) (0.00-0.20) K/uL Immature Gran # (Auto) (0.01-0.20) K/uL PT (9.0-12.0) Seconds INR (0.9-1.1) VBG pH (7.36-7.41) VBG pCO2 (38-50) mmHg VBG pO2 mmHg VBG HCO3 mmol/L VBG O2 Saturation % VBG Base Excess mEq/L Sodium 132 L (136-145) mmol/L Potassium 3.9 (3.5-5.1) mmol/L Chloride 95 L (98-107) mmol/L Carbon Dioxide 28 (21-32) mmol/L Anion Gap 9 (3-11) BUN 28 H (6-23) mg/dl Creatinine 1.47 H (0.6-1.4) mg/dl Est Cr Clr Drug Dosing 39.0 ml/min Est GFR ( Amer) 49.7 ml/min Est GFR (Non-Af Amer) 42.9 ml/min BUN/Creatinine Ratio 19.0 (10-20) Glucose 86 (70-99(Fasting)) mg/dl POC Glucose (70-99) mg/dl Estimat Average Glucose 137 mg/dl Hemoglobin A1c 6.4 H (4.5-5.6) % Osmolality (280-300) mOsm/kg Calcium 8.4 L (8.6-10.3) mg/dl Phosphorus 3.9 (2.5-4.9) mg/dl Magnesium 2.1 (1.7-2.4) mg/dl Total Bilirubin (0.2-1.0) mg/dl AST (13-39) U/L ALT (7-52) U/L Alkaline Phosphatase (34-104) U/L Troponin I High Sens 49.9 H D 37.9 H D (0-20) pg/ml B-Natriuretic Peptide (0-100) pg/ml Total Protein (6.0-8.3) gm/dl Albumin (3.4-5.0) gm/dl Globulin (2.5-4.0) gm/dl Albumin/Globulin Ratio (0.9-2) Urine Color Yellow Urine Appearance Clear (Clear) Urine pH 5.5 (4.5-7.5) Ur Specific [place] 1.011 (1.000-1.030) Urine Protein Negative (Negative) Urine Glucose (UA) 1+ H (Negative) Urine Ketones Negative (Negative) Urine Blood Negative (Negative) Urine Nitrite Negative (Negative) Urine Bilirubin Negative (Negative) Urine Urobilinogen Negative (Negative) Ur Leukocyte Esterase Negative (Negative) Urine Osmolality (500-800) mOsm/kg Ur Random Sodium mmol/L Fluid Neutrophils % % Fluid Lymphocytes % % Fluid Meso/Macro/[place] % % Fluid Comment Pleural Fluid Source Pleural Color Pleural Appearance Pleural pH (7.3-7.4) Pleural WBC (Auto) /uL Pleural RBC (Auto) /uL Pleural Total Protein gm/dl Pleural LDH U/L Pleural Glucose mg/dl 04/12/24 Range/Units 19:10 WBC 9.24 (4.8-10.8) K/ul RBC 4.30 L (4.70-6.10) M/uL Hgb 12.7 L (14.0-18.0) g/dl Hct 38.3 L (42.0-52.0) % MCV 89.1 (80.0-100.0) fL MCH 29.5 (25.0-34.0) pg MCHC 33.2 (32.0-36.0) g/dL RDW Std Deviation 44.8 (36.4-46.3) fL RDW Coeff of Chantal 13.7 (11.5-14.5) % Plt Count 257 (130-400) K/uL MPV 10.5 (9.4-12.4) fL Immature Gran % (Auto) 0.4 % Neut % (Auto) 87.3 % Lymph % (Auto) 3.2 % [place] % (Auto) 8.8 % Eos % (Auto) 0.1 % Baso % (Auto) 0.2 % Neut # (Auto) 8.06 H (1.40-6.50) K/uL Lymph # (Auto) 0.30 L (1.20-3.40) K/uL [place] # (Auto) 0.81 H (0.11-0.59) K/uL Eos # (Auto) 0.01 (0.00-0.50) K/uL Baso # (Auto) 0.02 (0.00-0.20) K/uL Immature Gran # (Auto) 0.04 (0.01-0.20) K/uL PT 11.3 (9.0-12.0) Seconds INR 1.0 (0.9-1.1) VBG pH 7.36 (7.36-7.41) VBG pCO2 48 (38-50) mmHg VBG pO2 34 mmHg VBG HCO3 27 mmol/L VBG O2 Saturation < 60.0 % VBG Base Excess 1.0 mEq/L Sodium 126 L (136-145) mmol/L Potassium 4.7 (3.5-5.1) mmol/L Chloride 91 L (98-107) mmol/L Carbon Dioxide 26 (21-32) mmol/L Anion Gap 9 (3-11) BUN 29 H (6-23) mg/dl Creatinine 1.55 H (0.6-1.4) mg/dl Est Cr Clr Drug Dosing 36.9 ml/min Est GFR ( Amer) 46.6 ml/min Est GFR (Non-Af Amer) 40.2 ml/min BUN/Creatinine Ratio 18.7 (10-20) Glucose 247 H (70-99(Fasting)) mg/dl POC Glucose (70-99) mg/dl Estimat Average Glucose mg/dl Hemoglobin A1c (4.5-5.6) % Osmolality 283 (280-300) mOsm/kg Calcium 8.6 (8.6-10.3) mg/dl Phosphorus (2.5-4.9) mg/dl Magnesium (1.7-2.4) mg/dl Total Bilirubin 0.5 (0.2-1.0) mg/dl AST 14 (13-39) U/L ALT 12 (7-52) U/L Alkaline Phosphatase 87 (34-104) U/L Troponin I High Sens 23.3 H (0-20) pg/ml B-Natriuretic Peptide 1180 H (0-100) pg/ml Total Protein 6.4 (6.0-8.3) gm/dl Albumin 3.7 (3.4-5.0) gm/dl Globulin 2.7 (2.5-4.0) gm/dl Albumin/Globulin Ratio 1.4 (0.9-2) Urine Color Urine Appearance (Clear) Urine pH (4.5-7.5) Ur Specific [place] (1.000-1.030) Urine Protein (Negative) Urine Glucose (UA) (Negative) Urine Ketones (Negative) Urine Blood (Negative) Urine Nitrite (Negative) Urine Bilirubin (Negative) Urine Urobilinogen (Negative) Ur Leukocyte Esterase (Negative) Urine Osmolality (500-800) mOsm/kg Ur Random Sodium mmol/L Fluid Neutrophils % % Fluid Lymphocytes % % Fluid Meso/Macro/[place] % % Fluid Comment Pleural Fluid Source Pleural Color Pleural Appearance Pleural pH (7.3-7.4) Pleural WBC (Auto) /uL Pleural RBC (Auto) /uL Pleural Total Protein gm/dl Pleural LDH U/L Pleural Glucose mg/dl Diagnostic Findings Chest X-Ray 04/12/24 18:49 XR chest 1V portable CLINICAL HISTORY: Dyspnea TECHNIQUE: Single frontal radiograph of the chest was obtained. Comparison: Comparison is made to chest radiograph 02/14/2024 FINDINGS: No lines and tubes are seen. The cardiomediastinal silhouette is normal. Moderate right and small left airspace opacities. Moderate right and small left pleural effusions. IMPRESSION: Moderate right and small left pleural effusions with associated atelectasis. ACT 112: Negative or not required by law. Electronically signed by: Asher Davidson M.D. 04/13/2024 6:[address] 04/12/24 18:56 Exam(s): CT HEAD Without Contrast EXAM: CT Head Without Intravenous Contrast CLINICAL HISTORY: Reason for exam: Fall. TECHNIQUE: Axial computed tomography images of the head/brain without intravenous contrast. CTDI is 38.24 mGy and DLP is 624.41 mGy-cm. Automated exposure control was utilized for the study. A dose lowering technique was utilized adhering to the principles of ALARA. COMPARISON: None. FINDINGS: Brain: Moderate generalized brain atrophy . Decreased attenuation within the deep periventricular white matter compatible with microangiopathic disease. No hemorrhage. Ventricles: Unremarkable. No ventriculomegaly. Bones/joints: Unremarkable. No acute fracture. Soft tissues: Unremarkable. Sinuses: Unremarkable as visualized. No acute sinusitis. Mastoid air cells: Unremarkable as visualized. No mastoid effusion. IMPRESSION: Chronic changes as described with no acute intracranial hemorrhage or space-occupying lesion. Electronically signed by: Gisela German MD 04/12/24 20:[address] 04/12/24 21:17 Exam(s): CT CHEST Without Contrast EXAM: CT Chest Without Intravenous Contrast CLINICAL HISTORY: Reason for exam: fall, right pleural effusion, ?hemothorax?. TECHNIQUE: Axial computed tomography images of the chest without intravenous contrast. CTDI is 25.02 mGy and DLP is 837.84 mGy-cm. Automated exposure control was utilized for the study. A dose lowering technique was utilized adhering to the principles of ALARA. COMPARISON: 02/10/2024. FINDINGS: Lungs: Right lower lobe atelectasis. Mild ground glass opacity within the right perihilar region and right lower lobe, cannot exclude superimposed pneumonitis. Emphysematous changes involving the lung apices. Minimal linear atelectasis involving the left lung apex. Left lower lobe round density measuring approximately 2.5 cm, most compatible with round atelectasis given morphology and stable in the interval. Pleural space: Large right-sided pleural effusion, increased in size in the interval. No pneumothorax. Heart: Mild cardiomegaly with coronary artery calcifications. No significant pericardial effusion. Bones/joints: Diffuse osteopenia with multilevel degenerative disease of the spine, more significant throughout the lower thoracic spine with vacuum phenomenon. No acute fracture. No dislocation. Soft tissues: Unremarkable. Vasculature: Calcified atherosclerotic disease of aorta with no aneurysm. Lymph nodes: Unremarkable. No enlarged lymph nodes. Liver: Abdomen reveal low attenuation structure within the left liver lobe measuring 13 mm, likely cyst and stable in the interval. Left upper renal pole low-attenuation structures consistent with simple cysts, largest measuring 3.4 cm with no further follow-up imaging recommended. Remainder of the upper abdominal structures unremarkable. IMPRESSION: Interval increase in size of the right pleural effusion with right lower lobe atelectasis and groundglass opacity concerning for residual pneumonitis. Left lower lobe round atelectasis, stable in the interval. Underlying emphysematous changes, more obvious in the lung apices. Electronically signed by: Gisela German MD 04/13/24 00:00 AM Chest X-Ray 04/13/24 08:00 XR chest 1V portable CLINICAL HISTORY: assess right sided effusion TECHNIQUE: Single frontal radiograph of the chest was obtained. Comparison: Comparison is made to chest radiograph 04/12/2024 FINDINGS: No lines and tubes are seen. Calcified aortic knob is seen. Stable bilateral lower lung predominant opacities. Moderate right and small left pleural effusions are unchanged. IMPRESSION: Stable pleural effusions and associated atelectasis. ACT 112: Negative or not required by law. Electronically signed by: Asher Davidson M.D. 04/13/2024 8:35 AM Chest X-Ray 04/13/24 12:19 XR chest 1V portable CLINICAL HISTORY: S/P Thoracentesis TECHNIQUE: Single frontal radiograph of the chest was obtained. Comparison: Comparison is made to chest radiograph 04/13/2024 FINDINGS: No lines and tubes are seen. Cardiomegaly is noted. The aortic arch is calcified. The lungs are clear. Small right pleural effusion is decreased in size from prior exam. Stable trace left pleural effusion. No pneumothorax. IMPRESSION: Interval decrease in right pleural effusion with no pneumothorax. Stable trace left pleural effusion. ACT 112: Negative or not required by law. Electronically signed by: Asher Davidson M.D. 04/13/2024 12:50 PM Knee X-Ray 04/14/24 09:30 RIGHT KNEE 2 VIEWS CLINICAL HISTORY: Right knee pain and swelling. FINDINGS: AP and crosstable lateral views of the right knee are obtained. No prior studies are available for comparison at the time of dictation. The skeletal structures are osteopenic. No fracture is seen. There is moderate tricompartmental degenerative joint space narrowing. There are marginal osteophytes and patellar enthesophytes. There is a large joint effusion. Bony overgrowth is seen along the tibial tuberosity. There is mild soft tissue swelling around the knee. Advanced atherosclerotic calcification is noted in the popliteal artery. IMPRESSION: 1. Soft tissue swelling and large joint effusion with no acute bony abnormality identified. 2. Osteopenia and arthritic change as above. Electronically signed by: Steven Bañuelos M.D. 04/14/2024 10:45 AM Chest X-Ray 04/16/24 07:00 XR chest 1V portable CLINICAL HISTORY: pleural effusion TECHNIQUE: Single frontal radiograph of the chest was obtained. Comparison: Comparison is made to chest radiograph 04/13/2024 FINDINGS: No lines and tubes are seen. Cardiomegaly is noted. The aortic arch is calcified. Right lower lung airspace opacity is seen. The lungs are clear. Moderate right pleural effusion, enlarged from prior exam. Trace left effusion cannot be excluded. IMPRESSION: Moderate right pleural effusion has enlarged from the prior exam. ACT 112: Negative or not required by law. Electronically signed by: Asher Davidson M.D. 04/16/2024 9:54 AM PG Care Time/CCT Total # of Minutes Spent Total Time Spent with Patient: Total time spent is greater than 50% in coordination of care (as documented) at patient's floor/unit and/or counseling patient: I spent 60 minutes overall addressing this case: 20min in medical data review/discussion with referring prov ider(s) and/or preparation for the visit 20 min in direct interaction with the patient/exam 00 min in Advance Care Planning/Goals of Care discussions as detailed above in note (must be >16min) 10 min in subsequent review and synthesis of assessment and plan 10 min communicating with other providers regarding the patient's case: [place] [address] IN/OBS CONSULT LVL 4,60M Patient Type New History Comprehensive Exam Comprehensive Diagnoses Falls frequently R29.6 Dyspnea and respiratory abnormalities R06.00; R06.89 Weakness generalized R53.1 Cancer related pain G89.3 Advanced care planning/counseling discussion Z71.89 Palliative care by specialist Z51.5
--- NOTE | 2024-04-18 13:36 | Hospitalist Progress Note ---
Date of Service April 18, 2024 Assessment & Plan (1) Pleural effusion: Plan: 83yo male with history of adenocarcinoma of the lung presenting after an uncomplicated ground level fall at home. Patient found to have a large right pleural effusion. This could be an incidental finding, and not related to the fall Effusion likely from CHF given elevated BNP and legs swellings and also weight gain or related to cancer Now post thoracentesis on 04/13 with removal of almost 1 L of fluid Breathing is better per patient Chest x-ray 04/16 showed reaccumulation of pleural fluid on the right side. Patient is agreeable to proceed with thoracentesis if need be. Currently does not appear to be dyspneic, saturating 92% on 2 L Continue diuresis (2) Adenocarcinoma of lung, stage 3: Plan: Noted. Patient is working with Pulmonary and Radiation Oncology to establish plan of care Seen in consultation by pulmonology during this hospital stay Questioning his functional/performance status that may limit therapeutic options Palliative care consulted. Awaiting discussion and determination of goals of care. Patient agreed to change his CODE STATUS to DNR/DNI PT/OT recommending rehab, supportive employment case manager to work on placement. Patient is agreeable with rehab placement (3) Knee pain: Plan: Complains of right knee pain and swelling could be from osteoarthritis with some effusion Fracture and dislocation has been ruled out Orthopedics did not recommend any workup or intervention. Follow-up in the office upon discharge. (4) Elevated troponin: Plan: Mildly elevated trop Patient denies chest pain. No acute findings on EKG. Possible demand ischemia in setting of CHF -Telemetry monitoring -Trend troponin to peak -2D echo did not show any wall motion abnormalities (5) Hyponatremia: Plan: Improved (6) Elevated blood sugar: Plan: Patient with elevated blood sugar of 247. No history of diabetes. -A1c 6.4 -ISS Plan PT/OT recommends rehab. Awaiting palliative care discussion Admission and Anticipated Discharge Date Admission Date: April 12, 2024 Subjective Patient denies any chest pain or shortness of breath. He understands that he is very deconditioned. I explained to him that he may be too weak to undergo chemotherapy. I informed him that we are waiting to have palliative care speak to him regarding goals of care. Review of Systems Review of Systems: All systems reviewed & are unremarkable except as noted in Subjective Physical Exam Physical Exam: General: Awake, conversant Heart: S1, S2/regular rate and rhythm, no murmur rubs or gallops Lungs: Diminished breath sounds at the right base Abdomen: Soft/nontender/nondistended. No hepatosplenomegaly Extremities: No clubbing/cyanosis. No edema. Right knee swelling noted Behavior: Appropriate, cooperative Results & Data Results & Data Vital Signs (Past 12 Hours) Vital Signs Temp Pulse Pulse Resp BP Pulse Ox O2 Del Method 04/18/24 11:00 36.7 C 107 H 20 129/74 92 Nasal Cannula 04/18/24 07:46 36.8 C 78 20 128/81 96 Nasal Cannula 04/18/24 07:17 Nasal Cannula 04/18/24 06:54 80 04/18/24 03:32 80 04/18/24 03:00 36.7 C 109 H 18 131/84 93 Nasal Cannula O2 Flow Rate 04/18/24 11:00 2 04/18/24 07:46 2 04/18/24 07:17 2.5 04/18/24 06:54 04/18/24 03:32 04/18/24 03:00 2.5 Laboratory Results Abnormal lab results 04/17/24 04/17/24 04/18/24 Range/Units 17:10 20:06 11:50 POC Glucose 131 H 113 H 135 H (70-99) mg/dl 04/18/24 Range/Units 11:52 POC Glucose 138 H (70-99) mg/dl PG Care Time/CCT Total # of Minutes Spent Total Time Spent with Patient: Total time spent is greater than 50% in coordination of care (as documented) at patient's floor/unit and/or counseling patient: Coding Level of Care Code 96439 SUB INP/OBS CARE 2/35MIN Diagnoses Pleural effusion J90 Adenocarcinoma of lung, stage 3 C34.90 Knee pain M25.569 Elevated troponin R77.8 Hyponatremia E87.1 Elevated blood sugar R73.9
--- NOTE | 2024-04-19 11:49 | XRay Report ---
XR chest 1V portable CLINICAL HISTORY: evaluate R pleural effusion COMPARISON STUDY: Chest radiograph April 16, 2024. Chest CT April 12, 2024. FINDINGS: There is no pneumothorax. A moderate right pleural effusion has mildly increased in size si nce prior exam. There is associated right basilar opacity. Interstitial thickening persists. Cardiome diastinal silhouette is stable. Linear densities represent atelectasis or scarring. There is underlyi ng emphysema. Left lower lobe opacity is unchanged and favors round atelectasis when correlating with prior CT. IMPRESSION: 1. Moderate right pleural effusion, mildly increased in size since prior chest radiograph. 2. Cardiomegaly with mild interstitial pulmonary edema. ACT 112: Negative or not required by law. Electronically signed by: Mihir Huynh M.D. 04/19/2024 11:46 AM
--- NOTE | 2024-04-19 12:57 | Hospitalist Progress Note ---
Date of Service April 19, 2024 Assessment & Plan (1) Pleural effusion: Plan: 83yo male with history of adenocarcinoma of the lung presenting after an uncomplicated ground level fall at home. Patient found to have a large right pleural effusion. This could be an incidental finding, and not related to the fall Effusion likely from CHF (given elevated BNP and legs swellings and also weight gain) or related to cancer Now post thoracentesis on 04/13 with removal of almost 1 L of fluid Chest x-ray 04/16 showed reaccumulation of pleural fluid on the right side. Patient is agreeable to proceed with thoracentesis if need be. Diuresis continued Today the patient complains of shortness of breath on exertion. He thinks that the fluid has built up again and would like the fluid drained. I informed pulmonary about his wishes. However, the patient had declined thoracentesis in the past few days when pulmonary had offered it. Pulmonary would like to wait for a formal discussion between the patient and palliative care. Chest x-ray was repeated today 04/19 and showed moderate right-sided pleural effusion. Pulmonary reviewed the x-ray and did not think there was much change from 3 days ago. Awaiting goals of care decision after discussion with palliative care. (2) Adenocarcinoma of lung, stage 3: Plan: Noted. Patient is working with Pulmonary and Radiation Oncology to establish plan of care Seen in consultation by pulmonology during this hospital stay Questioning his functional/performance status that may limit therapeutic options Palliative care consulted. Awaiting discussion and determination of goals of care. 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 Patient is agreeable with rehab placement But if the patient chooses comfort care, he may be able to go home with hospice. Disposition planning depends on decision on goals of care. (3) Knee pain: Plan: Complains of right knee pain and swelling could be from osteoarthritis with some effusion Fracture and dislocation has been ruled out Orthopedics did not recommend any workup or intervention. Follow-up in the office upon discharge. (4) Elevated troponin: Plan: Mildly elevated trop Patient denies chest pain. No acute findings on EKG. Possible demand ischemia in setting of CHF -Telemetry monitoring -Trend troponin to peak -2D echo did not show any wall motion abnormalities (5) Hyponatremia: Plan: Improved (6) Elevated blood sugar: Plan: Patient with elevated blood sugar of 247. No history of diabetes. -A1c 6.4 -ISS Plan PT/OT recommends rehab. Awaiting palliative care discussion Admission and Anticipated Discharge Date Admission Date: April 12, 2024 Subjective Patient tells me that he thinks he is filling up with fluid again. He tells me that he wants the fluid removed. I had a conversation with him about the goals of care. I explained to him that he is too weak to undergo cancer treatments. He has the option to choose comfort care. He stated that he wants to think about his options. I explained to him that Dr. Wray from palliative care will see him today and he can give her his answer. Until then he can think about his options. I ordered a chest x-ray and I informed Dr. Amanda about my concern of right pleural fluid reaccumulation. Per Dr. Amanda, he had declined thoracentesis in the past. Dr. Amanda would like to wait till palliative care has discussed with the patient and goals of care has been addressed. Dr. Amanda also reviewed the chest x-ray and informed me that it looks the same as 3 days ago. The patient is able to talk to me. He gets short of breath with exertion. Review of Systems Review of Systems: All systems reviewed & are unremarkable except as noted in Subjective Physical Exam Physical Exam: General: Awake, conversant Heart: S1, S2/regular rate and rhythm, no murmur rubs or gallops Lungs: Diminished breath sounds at the right base Abdomen: Soft/nontender/nondistended. No hepatosplenomegaly Extremities: No clubbing/cyanosis. No edema. Right knee swelling noted Behavior: Appropriate, cooperative Results & Data Results & Data Vital Signs (Past 12 Hours) Vital Signs Temp Pulse Pulse Resp BP BP Pulse Ox 04/19/24 11:13 36.5 C 99 H 16 122/73 92 04/19/24 07:53 36.8 C 93 H 16 127/80 95 04/19/24 07:46 04/19/24 07:19 82 04/19/24 04:15 36.9 C 84 18 120/79 96 O2 Del Method O2 Flow Rate 04/19/24 11:13 Nasal Cannula 2 04/19/24 07:53 Nasal Cannula 2 04/19/24 07:46 Nasal Cannula 2 04/19/24 07:19 04/19/24 04:15 Nasal Cannula 2 Laboratory Results Abnormal lab results 04/18/24 04/19/24 Range/Units 20:08 12:07 POC Glucose 143 H 144 H (70-99) mg/dl PG Care Time/CCT Total # of Minutes Spent Total Time Spent with Patient: Total time spent is greater than 50% in coordination of care (as documented) at patient's floor/unit and/or counseling patient: Coding Level of Care Code 30080 SUB INP/OBS CARE 2/35MIN Diagnoses Pleural effusion J90 Adenocarcinoma of lung, stage 3 C34.90 Knee pain M25.569 Elevated troponin R77.8 Hyponatremia E87.1 Elevated blood sugar R73.9
[2024-04-20 08:37] LABS: Hematocrit (blood only) 37.9 % (42.0-52.0); Hemoglobin 12.7 g/dl (14.0-18.0); Mean Corpuscular Hemoglobin 29.4 pg (25.0-34.0); Mean Corpuscular Hgb Conc 33.5 g/dL (32.0-36.0); Mean Corpuscular Volume 87.7 fL (80.0-100.0); Mean Platelet Volume 9.6 fL (9.4-12.4); Platelet Count 280 K/uL (130-400); RDW Coefficient of Variation 13.6 % (11.5-14.5); RDW Standard Deviation 43.7 fL (36.4-46.3); Red Blood Count 4.32 M/uL (4.70-6.10); White Blood Count 6.25 K/ul (4.8-10.8)
[2024-04-20 08:48] LABS: BUN Creatinine Ratio 22.8 (10-20); Calcium 8.3 mg/dl (8.6-10.3); Creatinine Clr Calc Pharmacy 41.1 ml/min; Est GFR (African American) 59.3 ml/min; Est GFR (Non-African American) 51.2 ml/min; Potassium 4.3 mmol/L (3.5-5.1)
--- NOTE | 2024-04-20 09:41 | Palliative Care Progress Note ---
Date of Service April 20, 2024 Assessment & Plan (1) Dyspnea and respiratory abnormalities: Plan: reaccumulated effusion after discussion he agreed t thoracentesis and pleurx he wishes to have continued care with option for chemo if possible (2) Cancer related pain: (3) Weakness generalized: (4) Advanced care planning/counseling discussion: Plan: Face to face ACP with pt for 30min Pt states "I'm getting sick of hearing people tell me what I can't have. How about doing what I want? If I want to take the chemo then you have to give it to me. And if I say I'll take that needle into this fluid in my lung then I want that too." Mr Gaytan states he wants a chance to have cancer therapy and perceives he was told his cancer would respond well to chemo. He is having a tough time understanding the complications /declining PS and how they contribute to decreasing chemo related success. We discussed how chemo may hurt more than help to which he replied "even if it does, that's my decision to make." I expressed my worry that he has been in a state of steady decline since initial work up and lower PS usually mean chemo cannot be safely done OR may need dose reductions which can further affect their outcomes. I shared my worry that his cancer may be progressing faster than treatment can help and asked if we could discuss some of those "what-if" scenarios to which he replied he knew chances were mall but he feels determined to try but if his heart or lungs stop, then no CPR/he reaffirmed No Code. He states that if the cancer is getting worse/treatment is not helping then he would want us to do all we can to assure he does not suffer. (5) Falls frequently: (6) Palliative care by specialist: (7) Pleural effusion: Plan as above Thank you for allowing us to participate in the ongoing care of this patient. Please don't hesitate to call or page with any additional concerns. Dr. Lizeth Wray DNP Director, Palliative Care Admission and Anticipated Discharge Date Admission Date: April 12, 2024 Subjective Mr. Gaytan is seen in follow-up. He is more awake and alert today. His effusion is increased and reaccumulated. It has been recommended that he have another thoracentesis however in discussion with pulmonary medicine this morning he refused. When primary team came to see him later in the day, he then insisted he had the fluid removed. He admits to dyspnea on a chronic cough with clear to occasionally slightly guillen sputum. He is short of breath at rest. He has some discomfort and tension across his anterior chest wall. His appetite today has improved. He notes that he has been able to tolerate all of his meals and is feeling hungry. He denies nausea or vomiting. Review of Systems Review of Systems: All systems reviewed & are unremarkable except as noted in Subjective Physical Exam Physical Exam: elderly male,chronically ill appearing bitemp wasting, perrla neck supple, no stridor inc resp effort with use of accessory muscles, + conversational dyspnea; frequent bronchitic cough with moderate amounts clear mucus rhonchorous breath sounds bilat, diminished right with crackles s1s2; no gross JVD abd soft, NTP, BS+ +gen weakness Awake alert and oriented x 3 skin pale, cool Results & Data Vital Signs (Past 12 Hours) Vital Signs Temp Pulse Pulse Resp BP BP Pulse Ox 04/20/24 08:29 36.7 C 84 17 114/65 91 04/20/24 07:08 91 H 04/20/24 00:59 78 04/19/24 23:09 36.7 C 66 18 128/85 94 04/19/24 22:29 O2 Del Method O2 Flow Rate 04/20/24 08:29 Nasal Cannula 2 04/20/24 07:08 04/20/24 00:59 04/19/24 23:09 Nasal Cannula 2 04/19/24 22:29 Nasal Cannula 2 Laboratory Results Most recent lab results Calcium 8.3 mg/dl (8.6-10.3) L 04/20/24 08:07 Phosphorus 3.9 mg/dl (2.5-4.9) 04/12/24 21:11 Magnesium 2.1 mg/dl (1.7-2.4) 04/12/24 21:[address] 04/12/24 18:56 Exam(s): CT HEAD Without Contrast EXAM: CT Head Without Intravenous Contrast CLINICAL HISTORY: Reason for exam: Fall. TECHNIQUE: Axial computed tomography images of the head/brain without intravenous contrast. CTDI is 38.24 mGy and DLP is 624.41 mGy-cm. Automated exposure control was utilized for the study. A dose lowering technique was utilized adhering to the principles of ALARA. COMPARISON: None. FINDINGS: Brain: Moderate generalized brain atrophy . Decreased attenuation within the deep periventricular white matter compatible with microangiopathic disease. No hemorrhage. Ventricles: Unremarkable. No ventriculomegaly. Bones/joints: Unremarkable. No acute fracture. Soft tissues: Unremarkable. Sinuses: Unremarkable as visualized. No acute sinusitis. Mastoid air cells: Unremarkable as visualized. No mastoid effusion. IMPRESSION: Chronic changes as described with no acute intracranial hemorrhage or space-occupying lesion. Electronically signed by: Gisela German MD 04/12/24 20:[address] 04/12/24 21:17 Exam(s): CT CHEST Without Contrast EXAM: CT Chest Without Intravenous Contrast CLINICAL HISTORY: Reason for exam: fall, right pleural effusion, ?hemothorax?. TECHNIQUE: Axial computed tomography images of the chest without intravenous contrast. CTDI is 25.02 mGy and DLP is 837.84 mGy-cm. Automated exposure control was utilized for the study. A dose lowering technique was utilized adhering to the principles of ALARA. COMPARISON: 02/10/2024. FINDINGS: Lungs: Right lower lobe atelectasis. Mild ground glass opacity within the right perihilar region and right lower lobe, cannot exclude superimposed pneumonitis. Emphysematous changes involving the lung apices. Minimal linear atelectasis involving the left lung apex. Left lower lobe round density measuring approximately 2.5 cm, most compatible with round atelectasis given morphology and stable in the interval. Pleural space: Large right-sided pleural effusion, increased in size in the interval. No pneumothorax. Heart: Mild cardiomegaly with coronary artery calcifications. No significant pericardial effusion. Bones/joints: Diffuse osteopenia with multilevel degenerative disease of the spine, more significant throughout the lower thoracic spine with vacuum phenomenon. No acute fracture. No dislocation. Soft tissues: Unremarkable. Vasculature: Calcified atherosclerotic disease of aorta with no aneurysm. Lymph nodes: Unremarkable. No enlarged lymph nodes. Liver: Abdomen reveal low attenuation structure within the left liver lobe measuring 13 mm, likely cyst and stable in the interval. Left upper renal pole low-attenuation structures consistent with simple cysts, largest measuring 3.4 cm with no further follow-up imaging recommended. Remainder of the upper abdominal structures unremarkable. IMPRESSION: Interval increase in size of the right pleural effusion with right lower lobe atelectasis and groundglass opacity concerning for residual pneumonitis. Left lower lobe round atelectasis, stable in the interval. Underlying emphysematous changes, more obvious in the lung apices. Electronically signed by: Gisela German MD 04/13/24 00:00 AM Knee X-Ray 04/14/24 09:30 RIGHT KNEE 2 VIEWS CLINICAL HISTORY: Right knee pain and swelling. FINDINGS: AP and crosstable lateral views of the right knee are obtained. No prior studies are available for comparison at the time of dictation. The skeletal structures are osteopenic. No fracture is seen. There is moderate tric ompartmental degenerative joint space narrowing. There are marginal osteophytes and patellar enthesophytes. There is a large joint effusion. Bony overgrowth is seen along the tibial tuberosity. There is mild soft tissue swelling around the knee. Advanced atherosclerotic calcification is noted in the popliteal artery. IMPRESSION: 1. Soft tissue swelling and large joint effusion with no acute bony abnormality identified. 2. Osteopenia and arthritic change as above. Electronically signed by: Steven Bañuelos M.D. 04/14/2024 10:45 AM Chest X-Ray 04/19/24 10:59 XR chest 1V portable CLINICAL HISTORY: evaluate R pleural effusion COMPARISON STUDY: Chest radiograph April 16, 2024. Chest CT April 12, 2024. FINDINGS: There is no pneumothorax. A moderate right pleural effusion has mildly increased in size since prior exam. There is associated right basilar opacity. Interstitial thickening persists. Cardiomediastinal silhouette is stable. Linear densities represent atelectasis or scarring. There is underlying emphysema. Left lower lobe opacity is unchanged and favors round atelectasis when correlating with prior CT. IMPRESSION: 1. Moderate right pleural effusion, mildly increased in size since prior chest radiograph. 2. Cardiomegaly with mild interstitial pulmonary edema. ACT 112: Negative or not required by law. Electronically signed by: Mihir Huynh M.D. 04/19/2024 11:46 AM PG Care Time/CCT Total # of Minutes Spent Total Time Spent with Patient: Total time spent is greater than 50% in coordination of care (as documented) at patient's floor/unit and/or counseling patient: I spent 80 minutes overall addressing this case: 15min in medical data review/discussion with referring provider(s) and/or preparation for the visit 15min in direct interaction with the patient/exam 30 min in Advance Care Planning/Goals of Care discussions as detailed above in note (must be >16min) 5 min in subsequent review and synthesis of assessment and plan 15 min communicating with other providers regarding the patient's case: Advanced Care Planning 86671 Advanced Care Planning 30 Min 34341 Advanced Care Planning Additional 30 Min [place] [address] SUB INP/OBS CARE 3/50MIN (25 - SIGNIFICANT, SEPARATELY IDENTIFIABLE ) Patient Type Established Medical Decision Making High Complexity Diagnoses Dyspnea and respiratory abnormalities R06.00; R06.89 Cancer related pain G89.3 Weakness generalized R53.1 Advanced care planning/counseling discussion Z71.89 Falls frequently R29.6 Palliative care by specialist Z51.5 Pleural effusion J90 Additional Codes Advanced Care Planning - 43139 Advanced Care Planning 30 Min: 12809 Advanced Care Planning 30 Min ([id number]) Advanced Care Planning - 31409 Advanced Care Planning Additional 30 Min: 85884 Advanced Care Planning Additional 30 Min ([id number])
[2024-04-20 12:43] LABS: Total Protein Pleural Fluid 3.6 gm/dl
--- NOTE | 2024-04-20 12:59 | XRay Report ---
XR chest 1V not portable HISTORY: s/p rt thoracentesis with stat read COMPARISON: Chest 04/19/2024. FINDINGS: Decrease in size in the now small right pleural effusion status post thoracentesis. No pneu mothorax. Bibasilar linear densities favor subsegmental atelectasis. Small linear scarlike densities within the left upper lobe persist. There is a trace left pleural effusions. The cardiac silhouette r emains mildly enlarged. No evidence for pulmonary edema. IMPRESSION: Decrease in size in the now small right pleural effusion status post thoracentesis. No pneumothorax. ACT 112: Negative or not required by law. Electronically signed by: Wilmar Lyn M.D. 04/20/2024 12:58 PM
--- NOTE | 2024-04-20 13:18 | Hospitalist Progress Note ---
Date of Service April 20, 2024 Assessment & Plan (1) Pleural effusion: Plan: 83yo male with history of adenocarcinoma of the lung presenting after an uncomplicated ground level fall at home. Patient found to have a large right pleural effusion. This could be an incidental finding, and not related to the fall Effusion likely from CHF (given elevated BNP and legs swellings and also weight gain) or related to cancer Patient had thoracentesis on 04/13 with removal of almost 1 L of fluid Chest x-ray 04/16 and 04/19 showed reaccumulation of pleural fluid on the right side. Patient wanted a repeat thoracentesis Thoracentesis repeated by IR today 04/20 Diuresis continued (2) Adenocarcinoma of lung, stage 3: Plan: Per pulmonary note on 02/13, this is at least a stage IIIa. Most likely has stage IV with this pleural effusion. Noted. Patient is working with Pulmonary and Radiation Oncology to establish plan of care Seen in consultation by pulmonology during this hospital stay Questioning his functional/performance status that may limit therapeutic options Palliative care consulted. Patient wishes to continue aggressive treatments and wishes to try chemotherapy. He understands that he is weak but he would like to participate in therapy and try to get strong enough. 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 Patient is agreeable with rehab placement (3) Knee pain: Plan: Complains of right knee pain and swelling could be from osteoarthritis with some effusion Fracture and dislocation has been ruled out Orthopedics did not recommend any workup or intervention. Follow-up in the office upon discharge. (4) Elevated troponin: Plan: Mildly elevated trop Patient denies chest pain. No acute findings on EKG. Possible demand ischemia in setting of CHF -Telemetry monitoring -Trend troponin to peak -2D echo did not show any wall motion abnormalities (5) Hyponatremia: Plan: Improved (6) Elevated blood sugar: Plan: Patient with elevated blood sugar of 247. No history of diabetes. -A1c 6.4 -ISS Plan PT/OT recommends rehab. Admission and Anticipated Discharge Date Admission Date: April 12, 2024 Subjective Patient feels well. Denies chest pain or shortness of breath currently. However feels short of breath on exertion. Patient is accompanied by his daughter who worked as a palliative care social media campaign manager in the past as well as in a lung cancer center. Daughter seems to be in agreement with a comfort approach but the patient wishes to try chemotherapy. Review of Systems Review of Systems: All systems reviewed & are unremarkable except as noted in Subjective Physical Exam Physical Exam: General: Awake, conversant Heart: S1, S2/regular rate and rhythm, no murmur rubs or gallops Lungs: Diminished breath sounds at the right base Abdomen: Soft/nontender/nondistended. No hepatosplenomegaly Extremities: No clubbing/cyanosis. No edema. Right knee swelling noted Behavior: Appropriate, cooperative Results & Data Results & Data Vital Signs (Past 12 Hours) Vital Signs Temp Pulse Pulse Resp BP Pulse Ox O2 Del Method 04/20/24 12:22 36.6 C 88 16 110/73 92 Nasal Cannula 04/20/24 11:52 36.5 C 92 H 18 111/73 93 Nasal Cannula 04/20/24 11:37 36.6 C 90 20 130/85 94 Nasal Cannula 04/20/24 10:28 Nasal Cannula 04/20/24 08:29 36.7 C 84 17 114/65 91 Nasal Cannula 04/20/24 07:08 91 H O2 Flow Rate 04/20/24 12:22 2 04/20/24 11:52 2 04/20/24 11:37 2 04/20/24 10:28 2 04/20/24 08:29 2 04/20/24 07:08 Laboratory Results Abnormal lab results 04/19/24 04/20/24 04/20/24 Range/Units 20:26 08:07 12:41 RBC 4.32 L (4.70-6.10) M/uL Hgb 12.7 L (14.0-18.0) g/dl Hct 37.9 L (42.0-52.0) % Sodium 130 L (136-145) mmol/L Chloride 94 L (98-107) mmol/L BUN 29 H (6-23) mg/dl BUN/Creatinine Ratio 22.8 H (10-20) POC Glucose 116 H 151 H (70-99) mg/dl Calcium 8.3 L (8.6-10.3) mg/dl Pleural pH (7.3-7.4) 04/20/24 Range/Units Unknown RBC (4.70-6.10) M/uL Hgb (14.0-18.0) g/dl Hct (42.0-52.0) % Sodium (136-145) mmol/L Chloride (98-107) mmol/L BUN (6-23) mg/dl BUN/Creatinine Ratio (10-20) POC Glucose (70-99) mg/dl Calcium (8.6-10.3) mg/dl Pleural pH 7.46 H (7.3-7.4) Diagnostic Findings Chest X-Ray 04/20/24 11:37 XR chest 1V not portable HISTORY: s/p rt thoracentesis with stat read COMPARISON: Chest 04/19/2024. FINDINGS: Decrease in size in the now small right pleural effusion status post thoracentesis. No pneumothorax. Bibasilar linear densities favor subsegmental atelectasis. Small linear scarlike densities within the left upper lobe persist. There is a trace left pleural effusions. The cardiac silhouette remains mildly enlarged. No evidence for pulmonary edema. IMPRESSION: Decrease in size in the now small right pleural effusion status post thoracentesis. No pneumothorax. ACT 112: Negative or not required by law. Electronically signed by: Wilmar Lyn M.D. 04/20/2024 12:58 PM PG Care Time/CCT Total # of Minutes Spent Total Time Spent with Patient: Total time spent is greater than 50% in coordination of care (as documented) at patient's floor/unit and/or counseling patient: Coding Level of Care Code 51470 SUB INP/OBS CARE 2/35MIN Diagnoses Pleural effusion J90 Adenocarcinoma of lung, stage 3 C34.90 Knee pain M25.569 Elevated troponin R77.8 Hyponatremia E87.1 Elevated blood sugar R73.9
[2024-04-20 13:27] LABS: Appearance Pleural Fluid Cloudy; Color Pleural Fluid Amber; Lymphocytes, Fluid 93 %; Mono,Macrophage,Mesothelial 6 %; Neutrophils, Fluid 1 %; RBC Pleural Fluid Auto 26000 /uL; Source Pleural Fluid Right Lung; WBC Pleural Fluid Auto 1890 /uL
--- NOTE | 2024-04-20 15:45 | Ultrasound Report ---
Ultrasound-guided right thoracentesis INDICATION: Loculated right pleural effusion PROCEDURE: Procedure and risks were explained. Informed consent was obtained. A final timeout was com pleted. The right posterior thorax was prepped and draped in sterile fashion. 1% lidocaine was utiliz ed for skin anesthesia. Utilizing ultrasound guidance, a 5 [place] safety centesis catheter was advanced into the loculated ri ght pleural effusion. Ultrasound images were obtained. 1000 mL of karen-colored fluid was removed and sent to the lab for analysis. The catheter was removed and Band-Aid applied. The patient tolerated t he procedure well. Postprocedure ultrasound shows a small loculated right pleural effusion remains. A chest x-ray will be obtained and vital signs will be monitored postprocedure. IMPRESSION: Ultrasound-guided right thoracentesis as above. Performed, dictated, and signed by Baldev Motley PA-C; to be co-signed by Dr. Wilmar Lyn. Electronically signed by: Wilmar Lyn M.D. 04/20/2024 4:04 PM
--- NOTE | 2024-04-21 13:36 | Hospitalist Progress Note ---
Date of Service April 21, 2024 Assessment & Plan (1) Pleural effusion: Plan: 83yo male with history of adenocarcinoma of the lung presenting after an uncomplicated ground level fall at home. Patient found to have a large right pleural effusion. This could be an incidental finding, and not related to the fall Effusion likely from CHF (given elevated BNP and legs swellings and also weight gain) or related to cancer Patient had thoracentesis on 04/13 with removal of almost 1 L of fluid Chest x-ray 04/16 and 04/19 showed reaccumulation of pleural fluid on the right side. Thoracentesis repeated by IR 04/20. 1 L fluid removed. Patient may have reaccumulation of the fluid Diuresis continued (2) Adenocarcinoma of lung, stage 3: Plan: Per pulmonary note on 02/13, this is at least a stage IIIa. Most likely has stage IV with this pleural effusion. Noted. Patient is working with Pulmonary and Radiation Oncology to establish plan of care Seen in consultation by pulmonology during this hospital stay Questioning his functional/performance status that may limit therapeutic options Palliative care consulted. Patient wishes to continue aggressive treatments and wishes to try chemotherapy. He understands that he is weak but he would like to participate in therapy and try to get strong enough. Patient agreed to change his CODE STATUS to DNR/DNI PT/OT recommending rehab, piano case maker to work on placement. Patient is agreeable with rehab placement (3) Knee pain: Plan: Complains of right knee pain and swelling could be from osteoarthritis with some effusion Fracture and dislocation has been ruled out Orthopedics did not recommend any workup or intervention. Follow-up in the office upon discharge. (4) Elevated troponin: Plan: Mildly elevated trop Patient denies chest pain. No acute findings on EKG. Possible demand ischemia in setting of CHF -Telemetry monitoring -Trend troponin to peak -2D echo did not show any wall motion abnormalities (5) Hyponatremia: Plan: Improved (6) Elevated blood sugar: Plan: Patient with elevated blood sugar of 247. No history of diabetes. -A1c 6.4 -ISS Plan PT/OT recommends rehab. Admission and Anticipated Discharge Date Admission Date: April 12, 2024 Subjective Patient feels well. Denies chest pain or shortness of breath. He says he feels much better since the fluid has been removed. He is able to take deep enough breaths. Review of Systems Review of Systems: All systems reviewed & are unremarkable except as noted in Subjective Physical Exam Physical Exam: General: Awake, conversant Heart: S1, S2/regular rate and rhythm, no murmur rubs or gallops Lungs: Diminished breath sounds at the right base Abdomen: Soft/nontender/nondistended. No hepatosplenomegaly Extremities: No clubbing/cyanosis. No edema. Right knee swelling noted Behavior: Appropriate, cooperative Results & Data Results & Data Vital Signs (Past 12 Hours) Vital Signs Temp Pulse Pulse Resp BP BP Pulse Ox 04/21/24 11:14 36.3 C L 83 18 111/75 98 04/21/24 10:12 36.5 C 92 H 16 111/71 96 04/21/24 10:08 04/21/24 07:28 67 04/21/24 04:00 36.7 C 80 18 121/76 93 O2 Del Method O2 Flow Rate 04/21/24 11:14 Nasal Cannula 2.5 04/21/24 10:12 Nasal Cannula 2.5 04/21/24 10:08 Nasal Cannula 2 04/21/24 07:28 04/21/24 04:00 Nasal Cannula 2 Laboratory Results Abnormal lab results 04/20/24 04/21/24 Range/Units 20:27 11:48 POC Glucose 126 H 169 H (70-99) mg/dl Diagnostic Findings Thoracentesis/Paracentesis US 04/20/24 11:00 Ultrasound-guided right thoracentesis INDICATION: Loculated right pleural effusion PROCEDURE: Procedure and risks were explained. Informed consent was obtained. A final timeout was completed. The right posterior thorax was prepped and draped in sterile fashion. 1% lidocaine was utilized for skin anesthesia. Utilizing ultrasound guidance, a 5 [place] safety centesis catheter was advanced into the loculated right pleural effusion. Ultrasound images were obtained. 1000 mL of karen-colored fluid was removed and sent to the lab for analysis. The catheter was removed and Band-Aid applied. The patient tolerated the procedure well. Postprocedure ultrasound shows a small loculated right pleural effusion remains. A chest x-ray will be obtained and vital signs will be monitored postprocedure. IMPRESSION: Ultrasound-guided right thoracentesis as above. Performed, dictated, and signed by Baldev Motley PA-C; to be co-signed by Dr. Wilmar Lyn. Electronically signed by: Wilmar Lyn M.D. 04/20/2024 4:04 PM PG Care Time/CCT Total # of Minutes Spent Total Time Spent with Patient: Total time spent is greater than 50% in coordination of care (as documented) at patient's floor/unit and/or counseling patient: Coding Level of Care Code 75588 SUB INP/OBS CARE 2/35MIN Diagnoses Pleural effusion J90 Adenocarcinoma of lung, stage 3 C34.90 Knee pain M25.569 Elevated troponin R77.8 Hyponatremia E87.1 Elevated blood sugar R73.9
--- NOTE | 2024-04-22 10:18 | Pulmonology Progress Note ---
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 He was not completely staged as EBUS was never performed. However the PET scan did demonstrate moderate FDG uptake within N1 and N2 nodes. He presents now with generalized weakness and a fall. Has not been seen by medical oncology. He underwent repeat thoracentesis. He feels at his baseline. Recommendations: 1. Pleural effusion: Patient underwent RIGHT-sided thoracentesis 04/13 with a total of 900 mL of bloody fluid removed. Cytology negative. Patient had repeat thoracentesis 04/20/2024. Has evidence of significant loculations. 1000 mL of karen-colored fluid was removed by radiology. Repeat cultures and cytology pending. Gram stain negative. Please follow-up cytology from second pleural fluid sample. 2. Lung cancer: Patient has previously been established with Dr. Ephraim Abebe at [facility]. To follow-up with Dr. Abebe in the outpatient setting. Patient's performance status may limit therapeutic options. Appreciate palliative care input. Patient can follow-up with primary student activities director, Dr. Garrido as an outpatient. I have no further recommendations at this time. Please call with questions. Thank you for the consult. Pulmonary sign off. Admission and Anticipated Discharge Date Admission Date: April 12, 2024 Subjective Patient seen and examined. Denies any significant complaint. Cough is improved. No chest pain. Review of Systems Review of Systems: All systems reviewed & are unremarkable except as noted in HPI & below Physical Exam Physical Exam: VITAL SIGNS - Vital signs and nursing notes were reviewed. GENERAL - 83-year-old male appearing his stated age who is in no acute distress. LUNGS - Auscultation reveals diminished breath sounds with coarse sounding lungs at the bases. CARDIAC - RRR with S1/S2. No murmur, rubs, or gallops appreciated. Results & Data Results & Data Vital Signs (Past 12 Hours) Vital Signs Temp Pulse Pulse Resp BP Pulse Ox O2 Del Method 04/22/24 07:40 36.6 C 75 16 128/74 96 Nasal Cannula 04/22/24 03:28 36.7 C 82 20 129/84 93 Nasal Cannula 04/21/24 23:17 36.8 C 88 18 136/90 97 Nasal Cannula 04/21/24 23:00 77 O2 Flow Rate 04/22/24 07:40 2 04/22/24 03:28 2 04/21/24 23:17 2 04/21/24 23:00 PG Care Time/CCT Total # of Minutes Spent Total Time Spent with Patient: Total time spent is greater than 50% in coordination of care (as documented) at patient's floor/unit and/or counseling patient: Coding Level of Care Code 70344 SUB INP/OBS CARE 2/35MIN Diagnoses Pleural effusion J90 Adenocarcinoma of lung, stage 3 C34.90
--- NOTE | 2024-04-22 12:31 | Hospitalist Progress Note ---
Date of Service April 22, 2024 Assessment & Plan (1) Pleural effusion: Plan: 83yo male with history of adenocarcinoma of the lung presenting after an uncomplicated ground level fall at home. Patient found to have a large right pleural effusion. This could be an incidental finding, and not related to the fall Effusion likely from CHF (given elevated BNP and legs swellings and also weight gain) or related to cancer Patient had thoracentesis on 04/13 with removal of almost 1 L of fluid Chest x-ray 04/16 and 04/19 showed reaccumulation of pleural fluid on the right side. Thoracentesis repeated by IR 04/20. 1 L fluid removed. Pathology pending. Please follow-up Patient may have reaccumulation of the fluid. Patient to follow-up with his primary vision impaired teacher. Diuresis continued (2) Adenocarcinoma of lung, stage 3: Plan: Per pulmonary note on 02/13, this is at least a stage IIIa. Most likely has stage IV with this pleural effusion. Noted. Patient is working with Pulmonary and Radiation Oncology to establish plan of care Seen in consultation by pulmonology during this hospital stay Questioning his functional/performance status that may limit therapeutic options Palliative care consulted. Patient wishes to continue aggressive treatments and wishes to try chemotherapy. He understands that he is weak but he would like to participate in therapy and try to get strong enough. Patient agreed to change his CODE STATUS to DNR/DNI PT/OT recommending rehab, case work aide to work on placement. Patient is agreeable with rehab placement (3) Knee pain: Plan: Complains of right knee pain and swelling could be from osteoarthritis with some effusion Fracture and dislocation has been ruled out Orthopedics did not recommend any workup or intervention. Follow-up in the office upon discharge. (4) Elevated troponin: Plan: Mildly elevated trop Patient denies chest pain. No acute findings on EKG. Possible demand ischemia in setting of CHF -Telemetry monitoring -Trend troponin to peak -2D echo did not show any wall motion abnormalities (5) Hyponatremia: Plan: Improved (6) Elevated blood sugar: Plan: Patient with elevated blood sugar of 247. No history of diabetes. -A1c 6.4 -ISS Plan PT/OT recommends rehab. I was asked to do a peer to peer for denial of e ncomp stay by his insurance company. I will have to make the call on Tuesday 04/24 and the insurance companies open. Admission and Anticipated Discharge Date Admission Date: April 12, 2024 Subjective Patient does not have any major complaints. Denies chest pain or shortness of breath. Review of Systems Review of Systems: All systems reviewed & are unremarkable except as noted in Subjective Physical Exam Physical Exam: General: Awake, conversant Heart: S1, S2/regular rate and rhythm, no murmur rubs or gallops Lungs: Diminished breath sounds at the right base Abdomen: Soft/nontender/nondistended. No hepatosplenomegaly Extremities: No clubbing/cyanosis. No edema. Right knee swelling noted Behavior: Appropriate, cooperative Results & Data Results & Data Vital Signs (Past 12 Hours) Vital Signs Temp Pulse Resp BP Pulse Ox O2 Del Method O2 Flow Rate 04/22/24 11:42 Nasal Cannula 2 04/22/24 11:05 37.0 C 82 18 119/72 94 Nasal Cannula 2 04/22/24 07:40 36.6 C 75 16 128/74 96 Nasal Cannula 2 04/22/24 03:28 36.7 C 82 20 129/84 93 Nasal Cannula 2 Laboratory Results Abnormal lab results 04/21/24 04/22/24 Range/Units 20:22 12:00 POC Glucose 139 H 133 H (70-99) mg/dl PG Care Time/CCT Total # of Minutes Spent Total Time Spent with Patient: Total time spent is greater than 50% in coordination of care (as documented) at patient's floor/unit and/or counseling patient: Coding Level of Care Code 86596 SUB INP/OBS CARE 2/35MIN Diagnoses Pleural effusion J90 Adenocarcinoma of lung, stage 3 C34.90 Knee pain M25.569 Elevated troponin R77.8 Hyponatremia E87.1 Elevated blood sugar R73.9
--- NOTE | 2024-04-23 13:41 | Hospitalist Progress Note ---
Date of Service April 23, 2024 Assessment & Plan (1) Pleural effusion: Plan: 83yo male with history of adenocarcinoma of the lung presenting after an uncomplicated ground level fall at home. Patient found to have a large right pleural effusion. This could be an incidental finding, and not related to the fall Effusion likely from CHF (given elevated BNP and legs swellings and also weight gain) or related to cancer Patient had thoracentesis on 04/13 with removal of almost 1 L of fluid Chest x-ray 04/16 and 04/19 showed reaccumulation of pleural fluid on the right side. Thoracentesis repeated by IR 04/20. 1 L fluid removed. Pathology pending. Please follow-up Patient may have reaccumulation of the fluid. Patient to follow-up with his primary security advisor. Diuresis continued (2) Adenocarcinoma of lung, stage 3: Plan: Per pulmonary note on 02/13, this is at least a stage IIIa. Most likely has stage IV with this pleural effusion. Noted. Patient is working with Pulmonary and Radiation Oncology to establish plan of care Seen in consultation by pulmonology during this hospital stay Questioning his functional/performance status that may limit therapeutic options Palliative care consulted. Patient wishes to continue aggressive treatments and wishes to try chemotherapy. He understands that he is weak but he would like to participate in therapy and try to get strong enough. Patient agreed to change his CODE STATUS to DNR/DNI PT/OT recommending rehab, manager of case to work on placement. Patient is agreeable with rehab placement (3) Knee pain: Plan: Complains of right knee pain and swelling could be from osteoarthritis with some effusion Fracture and dislocation has been ruled out Orthopedics did not recommend any workup or intervention. Follow-up in the office upon discharge. (4) Elevated troponin: Plan: Mildly elevated trop Patient denies chest pain. No acute findings on EKG. Possible demand ischemia in setting of CHF -Telemetry monitoring -Trend troponin to peak -2D echo did not show any wall motion abnormalities (5) Hyponatremia: Plan: Improved (6) Elevated blood sugar: Plan: Patient with elevated blood sugar of 247. No history of diabetes. -A1c 6.4 -ISS Plan PT/OT recommends rehab. I was asked to do a peer to peer for denial of e ncomp stay by his insurance company. I will have to make the call on Tuesday 04/24 when the insurance company will reopen. Admission and Anticipated Discharge Date Admission Date: April 12, 2024 Subjective Patient feels well overall. Denies any new complaints. Denies chest pain or shortness of breath. Review of Systems Review of Systems: All systems reviewed & are unremarkable except as noted in Subjective Physical Exam Physical Exam: General: Awake, conversant Heart: S1, S2/regular rate and rhythm, no murmur rubs or gallops Lungs: Diminished breath sounds at the right base Abdomen: Soft/nontender/nondistended. No hepatosplenomegaly Extremities: No clubbing/cyanosis. No edema. Right knee swelling noted Behavior: Appropriate, cooperative Results & Data Results & Data Vital Signs (Past 12 Hours) Vital Signs Temp Pulse Pulse Resp BP Pulse Ox O2 Del Method 04/23/24 12:41 36.7 C 80 20 109/76 98 Nasal Cannula 04/23/24 08:11 36.8 C 65 18 120/71 96 Nasal Cannula 04/23/24 08:00 Nasal Cannula 04/23/24 07:09 70 O2 Flow Rate 04/23/24 12:41 2 04/23/24 08:11 2 04/23/24 08:00 2 04/23/24 07:09 Laboratory Results Abnormal lab results 04/22/24 04/23/24 Range/Units 20:11 12:00 POC Glucose 145 H 137 H (70-99) mg/dl PG Care Time/CCT Total # of Minutes Spent Total Time Spent with Patient: Total time spent is greater than 50% in coordination of care (as documented) at patient's floor/unit and/or counseling patient: Coding Level of Care Code 29631 SUB INP/OBS CARE 2/35MIN Diagnoses Pleural effusion J90 Adenocarcinoma of lung, stage 3 C34.90 Knee pain M25.569 Elevated troponin R77.8 Hyponatremia E87.1 Elevated blood sugar R73.9
[2024-04-23 19:46] VITALS: RESP 18
[2024-04-24 15:04] VITALS: BP 109/67; PULSE 80; TEMP 98.2; O2SAT 97
--- NOTE | 2024-04-24 15:09 | Discharge Summary ---
Date of Service April 24, 2024 Admission HPI Per Admitting Provider Sohan Gaytan is a pleasant 83-year-old male with history of hypertension, pulmonary hypertension, COPD and recently diagnosed mucinous adenocarcinoma (biopsy 02/09/2024) presenting to [facility] ER following a ground-level fall at home. Patient went to the bathroom then came out and reports that his legs felt tired and heavy. He sat on the [place] couch then slid off onto the floor. He reports he was unable to get up due to weakness. Patient called his nurse who then came with some friends to pick him up off the floor. They called EMS and he was brought to the ER. Patient reports that he did not fall hard. He did not injure himself or hit his head/neck/face or ribs. Patient reports baseline shortness of breath which has been worsening over the last year. He has a chronic cough productive for thick, white sputum. He also reports some worsening bilateral LE edema and feels like he's "filling up with fluid". He denies fever, chills, chest pain, abdominal pain, nausea, vomiting, diarrhea or constipation. He reports normal appetite and good oral intake. 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 Suspected to be at least stage IIIa (T2b N2 M0) but has not been formally staged - unable to obtain mediastinal LN biopsies due to risk of anesthesia. Has been seen by Pulmonary. Consideration of EBUS in the future for further diagnosis. Patient developed a small hemothorax following his lung biopsy. This was noted on CT of the chest on 02/09/24. He had a repeat CT of the chest on 02/10/24 which revealed mild increase in the size of the hemothorax. MRI of the brain obtained 02/25/24 with no evidence of metastatic disease. Admission Exam Per Admitting Provider General: patient resting comfortably, NAD, non-toxic in appearance, AA&O x 4 Skin: warm, dry, intact, no rashes or lesions HEENT: NC/AT, PERRL, EOMI, anicteric sclera, conjunctiva without injection, external ear normal to inspection and nontender, nares patent, moist mucus membranes, dentition intact, no oropharyngeal lesions, neck supple, trachea midline, no LAD, no thyromegaly, no JVD Heart: +S1/S2, regular with ectopy, no m/r/g Lungs: patient with mild conversational dyspnea, coughing during our encounter and expectorating white mucus, normal chest wall mechanics, equal air entry bilaterally, diffuse crackles, diminished breath sounds in right base, no wheeze Abd: +BS, soft, NT/ND, no masses/organomegaly/ascites Ext: warm, 2+ pulses in UE/LE bilaterally, no clubbing/cyanosis, 1+ pitting edema of bilateral LE Neuro: nonfocal, patient AA&O x 4, speech intact, no facial droop, moving all extremities on command with equal strength 03/26 Principal Diagnosis Recurrent large right pleural effusion, status post thoracentesis Right lung adenocarcinoma, likely stage IV if the pleural effusion is proven to be cancer related Deconditioning Discharge Exam General: Awake, conversant Heart: S1, S2/regular rate and rhythm, no murmur rubs or gallops Lungs: Diminished breath sounds at the right base Abdomen: Soft/nontender/nondistended. No hepatosplenomegaly Extremities: No clubbing/cyanosis. No edema. Right knee swelling noted Behavior: Appropriate, cooperative Discharge Data Allergies Allergy/AdvReac Type Severity Reaction Status Date / Time No Known Allergies Allergy Verified 04/12/24 21:49 Consultations 04/12/24 20:57 ED Decision to Admit Stat 04/12/24 21:45 Consult Pulmonology Routine 04/14/24 09:37 Consult Orthopedic Surgery Routine 04/17/24 12:46 Consult Palliative Care Routine Ordered Studies 04/12/24 18:56 CT head/brain wo con Stat 04/12/24 21:17 CT chest diagnostic wo con Stat 04/20/24 11:00 IR thoracentesis wo tube US Routine Hospital Course (1) Pleural effusion: 83yo male with history of adenocarcinoma of the lung presenting after an uncomplicated ground level fall at home. Patient found to have a large right pleural effusion. This could be an incidental finding, and not related to the fall Effusion likely from CHF (given elevated BNP and legs swellings and also weight gain) or related to cancer Patient had thoracentesis on 04/13 with removal of almost 1 L of fluid Chest x-ray 04/16 and 04/19 showed reaccumulation of pleural fluid on the right side. Thoracentesis repeated by IR 04/20. 1 L fluid removed. Pathology pending. Please follow-up Patient may have reaccumulation of the fluid. Patient to follow-up with his primary medical officer psychiatry. Diuresis continued (2) Adenocarcinoma of lung, stage 3: Per pulmonary note on 02/13, this is at least a stage IIIa. Most likely has stage IV with this pleural effusion. Patient is working with Pulmonary and Radiation Oncology to establish plan of care Seen in consultation by pulmonology during this hospital stay Questioning his functional/performance status that may limit therapeutic options Palliative care consulted. Patient wishes to continue aggressive treatments and wishes to try chemotherapy. He understands that he is weak but he would like to participate in therapy and try to get strong enough. He does not understand why he could not tolerate chemotherapy this time. 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 Thus he would like to proceed with muscle strengthening so he can pursue chemotherapy for his cancer Patient agreed to change his CODE STATUS to DNR/DNI PT/OT recommending rehab, casey saw operator to work on placement. Patient is agreeable with rehab placement (3) Knee pain: Complains of right knee pain and swelling could be from osteoarthritis with some effusion Fracture and dislocation has been ruled out Orthopedics did not recommend any workup or intervention. Follow-up in the office as needed upon discharge. (4) Elevated troponin: Mildly elevated trop Patient denies chest pain. No acute findings on EKG. Possible demand ischemia in setting of CHF -Telemetry monitoring -Trend troponin to peak -2D echo did not show any wall motion abnormalities (5) Hyponatremia: Improved (6) Elevated blood sugar: Patient with elevated blood sugar of 247. No history of diabetes. -A1c 6.4 -ISS Plan Discharge to custodial facility Total Time Total Time Spent Total Time Spent (In Minutes): 35 Discharge Plan Discharge Items Patient Disposition: Transfer [facility] Reason For Visit: FALL, SHORTNESS OF BREATH Discharge Diagnosis: Recurrent large right pleural effusion, status post thoracentesis Right lung adenocarcinoma, likely stage IV if the pleural effusion is proven to be cancer related Deconditioning Activity: As commented below Activity Comment: Per PT/OT recommendations Non-emergency contact: Primary Care Provider Call non-emergency contact if: you have any medication questions and your symptoms worsen Follow-up/Referrals: Corby Zuniga, [Primary Care Provider] - Ephraim Abebe MD [Surgeon] - Diet: Heart Healthy Addtl Attending Provider Instructions: Advised to follow-up with PCP in 1 week Advised to follow-up with Dr. Ephraim Abebe for cancer follow-up Pending Studies at Discharge: Yes Studies:: Pleural fluid cytology and pathology pending from 04/20 Stand-Alone Forms: [facility] Skilled Items Patient informed of condition?: Yes DNR: Yes Discharge Level of Care: Skilled Communicable Disease: No Discharge Prognosis: Stable Lines: None Urinary Catheter: No Medications and DC Order Prescriptions: Continued (DME) Wheeled Walker Misc See Rx Instructions .Route Qty: 1 0RF Rx Instructions: Rollator walker with hand brakes and seat (DME) Portable Oxygen Misc See Rx Instructions .Route Qty: 1 0RF Rx Instructions: As directed gabapentin 300 mg capsule 300 mg PO BID PRN (Reason: pain) Qty: 60 5RF Arnuity Ellipta 100 mcg/actuation blister with device 1 inh inhalation DAILY Qty: 30 11RF tamsulosin 0.4 mg capsule 0.4 mg PO QAM Qty: 90 3RF cholecalciferol (vitamin D3) 1,000 unit (25 mcg) tablet 2,000 units PO QAM aspirin 81 mg Tablet,Delayed Release (Dr/Ec) 81 mg PO QAM acetaminophen [Tylenol Extra Strength] 500 mg Tablet 500 mg PO Q6H PRN (Reason: Pain) ipratropium-albuterol 0.5 mg-3 mg(2.5 mg base)/3 mL solution for nebulization 3 ml NEB QID PRN (Reason: Shortness Of Breath Or Wheezing) methimazole 10 mg tablet 10 mg PO QAM furosemide 20 mg tablet See Rx Instructions .ROUTE .COMPLEX Rx Instructions: 20 mg orally ;take his lasix on Wednesday, Wed, , Wed. Hold lasix on M,W,. check weight daily. take lasix on M,W,F if weight goes up 2lbs overnight or more than 5 pounds from his current baseline. Discharge Orders: Discharge Order (Routine); Ordered 04/24/24 Ordered By: Giovany Jerry/Other Patient Handouts: A1C Admission Data Admit Date/Time: 04/12/24 21:45 Attending Provider: Giovany Stock Admit Provider: Marielos Johnson Primary Care Provider: Corby Zuniga. Other Providers: Maximus Garrido; Marielos Johnson; Nitin Campbell; Lizeth Wray; [facility] Coding Level of Care Code 68640 INP/OBS DISCH >30 MIN Diagnoses Pleural effusion J90 Adenocarcinoma of lung, stage 3 C34.90 Knee pain M25.569 Elevated troponin R77.8 Hyponatremia E87.1 Elevated blood sugar R73.9
== END 2024-04-24 15:37 | DRG 186 ==
LOC: ED 18:36 → EDINP 21:45 → SUATTDRO 21:45 → 2N 04-13 00:55
DX: C34.91 Malignant neoplasm of unspecified part of right bronchus or lung; Z79.899 Other long term (current) drug therapy; R73.9 Hyperglycemia, unspecified; J44.9 Chronic obstructive pulmonary disease, unspecified; I13.0 Hypertensive heart and chronic kidney disease with heart failure and stage 1 through stage 4 chronic kidney disease, or unspecified chronic kidney disease; I50.31 Acute diastolic (congestive) heart failure; Z87.891 Personal history of nicotine dependence; I27.20 Pulmonary hypertension, unspecified; J90 Pleural effusion, not elsewhere classified; I24.89 Other forms of acute ischemic heart disease; M25.569 Pain in unspecified knee; E87.1 Hypo-osmolality and hyponatremia; Z79.82 Long term (current) use of aspirin; Z66 Do not resuscitate

== ENCOUNTER 2024-10-21 14:29 | Inpatient (IN) ==
[2024-10-21 15:44] LABS: Hematocrit (blood only) 43.6 % (42.0-52.0); Hemoglobin 14.4 g/dl (14.0-18.0); Mean Corpuscular Hemoglobin 28.3 pg (25.0-34.0); Mean Corpuscular Volume 85.8 fL (80.0-100.0); Mean Platelet Volume 10.7 fL (9.4-12.4); Platelet Count 284 K/uL (130-400); RDW Coefficient of Variation 13.4 % (11.5-14.5); RDW Standard Deviation 41.8 fL (36.4-46.3); Red Blood Count 5.08 M/uL (4.70-6.10); White Blood Count 18.63 K/ul (4.8-10.8)
--- NOTE | 2024-10-21 15:49 | Emergency Department Note ---
Impression & Plan COPD (chronic obstructive pulmonary disease), Acute hypoxemic respiratory failure, Right lower lobe pneumonia, Weakness, Acute dehydration ED Provider Note NAME: KIERAN ETIENNE AGE: 84 SEX: M : 1940 ARRIVES VIA: Ambulance INFORMANT: Patient, Nursing report ED PROVIDER(S): Chema Valentine MD CHIEF COMPLAINT: Weakness, left buttock pain, fall out of bed MEDICAL DECISION MAKING: Patient presents due to concern for weakness and fatigue. IV was established and blood work was obtained. Patient with coarse breath sounds to the right chest concern for pneumonia. The patient was ordered IV fluids as the patient was hypotensive. The patient was ordered methylprednisolone IV DuoNeb treatments and Rocephin and azithromycin. Patient also ordered blood cultures and lactate. Patient with a white count of 18 with a normal H&H and platelet count. Patient with a sodium of 131 creatinine 1.64. Slight ALINA compared to before. Mild transaminitis but normal bilirubin. Procalcitonin 3.4. Urinalysis does show blood but no obvious signs of infection BioFire negative. Patient did have plain films completed of the coccyx and left hip. No obvious fractures. Patient did have improvement in his hypotension and his lactate was not elevated. Initial lactate is normal. Due to the fluid shortage 30 cc/KG bolus not initially ordered in light of improvement in his blood pressure and normal lactate. Critical Care: I have personally spent 45 minutes of critical care time in direct management of this patient. This includes bedside care, interpretation of diagnostic studies, and testing, discussion with consultants, patient, and family members, and other require inpatient management activities. This 45 minutes is in excess of all separately billable procedures. Discussion w/ other healthcare providers: Dr. Jimenez inpatient medicine service Prior /Outside records reviewed: None Differential diagnosis: Infection, dehydration, metabolic abnormality, hypo/hyperglycemia, electrolyte imbalance, anemia, UTI, pneumonia, thyroid dysfunction among others were considered. Diagnostics, as interpreted by me: ECG: Sinus with PACs, rate of 88, normal intervals, left axis deviation, T wave inversions in the anterior lateral and inferior leads. Cardiac monitoring: An order was placed for continuous cardiac monitoring. The monitor shows a rate of 85 with sinus rhythm. Patient was placed on pulse oximetry Medical decision rules: None Imaging studies: I informally interpreted the patient's right sided pneumonia with formal report to follow. HPI: Patient presents due to concern for sliding out of bed. The patient reportedly slid out of bed onto his buttocks. The patient states that he does have left-sided buttock pain. The patient denies any LOC or trauma. No head or neck pain. Patient does take aspirin. Patient does reportedly use oxygen on occasion. No history of COPD. Patient denies any abdominal pain. The patient states that he has not eaten yet today. He is very hungry. PAST MEDICAL HISTORY: See Below PAST SURGICAL HISTORY: See Below SOCIAL HISTORY: See Below HOME MEDICATIONS: See Below ALLERGIES: See Below VITALS: See Below PHYSICAL EXAMINATION: GENERAL: Nasal cannula in place. EYE EXAM: Normal conjunctiva. PERRL, no anisocoria and EOM's grossly intact w/o pain. OROPHARYNX: Dry mucus membranes, grossly normal dentition. NECK: Trachea midline, no stridor. LUNGS: Coarse sounds in the right chest no obvious wheezing. Normal chest wall mechanics. HEART: NSR, no MRG. ABDOMEN: Abdomen soft, non-tender, no masses, no rebound or guarding. BACK: No CVA TTP. SKIN: No rashes and no bruising. UPPER EXTREMITIES: Upper extremities are grossly normal. LOWER EXTREMITIES: Grossly normal, no edema. No significant pain into the left hip does have pain to the left buttock and coccygeal area. No obvious bruising. Able to raise both legs off the bed more difficult with the left lower extremity compared to the right. NEURO EXAM: A&O x3, cranial nerves II-XII grossly intact, normal speech, moves all 4 extremities. Past Med/Surg History Problem List (Updated 10/21/24 @ 21:22 by Chema Valentine MD) Acute dehydration (Acute) Weakness (Acute) Right lower lobe pneumonia (Acute) Acute hypoxemic respiratory failure (Acute) COPD (chronic obstructive pulmonary disease) (Acute) COPD (chronic obstructive pulmonary disease) Acute respiratory failure with hypoxia Rhabdomyolysis Sepsis Brennon's thyroiditis Graves disease Physical debility Decubital ulcer H/O pleural effusion Palliative care by specialist Advanced care planning/counseling discussion Cancer related pain Dyspnea and respiratory abnormalities Weakness generalized Falls frequently Right knee pain Knee pain Elevated blood sugar Adenocarcinoma of lung, stage 3 Hemothorax, postoperative Anemia Chronic kidney disease with active medical management without dialysis, stage 3 (moderate) Chronic kidney disease GI bleeding Emphysema/COPD Cor pulmonale Pulmonary hypertension Elevated liver enzymes Right heart failure Right middle lobe pneumonia (Acute) Hyperthyroidism Abnormal chest CT Ventricular tachycardia Cardiomyopathy Hyponatremia Hypoxia (Acute) Elevated troponin Vitamin D deficiency Elevated TSH Postural dizziness with near syncope Cervical spondylosis Large B-cell lymphoma Stage 2 chronic kidney disease Positive colorectal cancer screening using Cologuard test Mixed conductive and sensorineural hearing loss (Acute) Postherpetic neuralgia (Chronic) HTN (hypertension) (Chronic) Medical History Pleural effusion Acute kidney injury Acute hypoxemic respiratory failure Hypertension Sensorineural hearing loss (SNHL) of both ears Cor pulmonale Pulmonary hypertension Pulmonary nodule RLL Chronic kidney disease History of shingles takes gabapentin for pain Hyperthyroidism Emphysema/COPD Lymphoma (~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 Surgical History History of nasal surgery (~2014) due to CA Hx of esophagogastroduodenoscopy Hx of colonoscopy H/O varicose vein ligation Family History Father , Age 91 Renal failure Mother Breast cancer Denies family history of Ovarian cancer Prostate cancer Myocardial infarction Colorectal cancer Social History Smoking Status: Former smoker Tobacco Type: Cigarettes Age Started Using Tobacco: 18; Age Quit Using Tobacco: 61; Cigarettes Per Day: 1 PPD; Second Hand Exposure: No; Do You Dip or Chew Tobacco: No; Tobacco Cessation Education Requested by Patient: No Hx Alcohol Use: No Hx Substance Use: No Preferred Language: Angolan Communication Ability: Effective Visual Impairment: No Limitations Hearing Ability: Hard of Hearing Sewer Required: No Beliefs That Will Affect Care: None marital status: Current Living Situation: Spouse current occupational status: retired How many Children do You have: 1 Other Information That Helps Us Care for You: No Feels Safe at Home: Yes Safety Concerns: Feels Safe At This Time Childhood Exposure to Second-Hand Smoke: No Diet: regular caffeine: Yes Dental Care, Regularly: No Physical Activity Frequency: Does not Exercise Seatbelt Use: always Sunscreen Use: No Do you think of yourself as: straight/heterosexual Gender Identity: Male Assistive Devices: Oxygen - at Night and Walker Allergies Allergies Allergy/AdvReac Type Severity Reaction Status Date / Time No Known Allergies Allergy Verified 10/21/24 16:55 Home Meds Home Medications Medication Instructions Recorded Confirmed cholecalciferol (vitamin D3) 25 2,000 units PO QAM 08/23/19 10/21/24 mcg (1,000 unit) tablet aspirin 81 mg tablet,delayed 81 mg PO QAM 12/17/19 10/21/24 release acetaminophen 500 mg tablet 500 mg PO Q6H PRN Pain 10/20/23 10/21/24 (Tylenol Extra Strength) ipratropium 0.5 mg-albuterol 3 mg 3 ml NEB QID PRN Shortness Of 02/03/24 10/21/24 (2.5 mg base)/3 mL nebulization Breath Or Wheezing soln furosemide 20 mg tablet See Rx Instructions .Route .COMPLEX 04/12/24 10/21/24 Previous Rx's Medication Instructions Recorded Wheeled Walker #1 ea 07/01/23 gabapentin 300 mg capsule 300 mg PO BID PRN pain #60 caps 01/14/24 fluticasone furoate 100 1 inh inhalation DAILY #30 ea 02/07/24 mcg/actuation blister powder for inhalation (Arnuity Ellipta) tamsulosin 0.4 mg capsule 0.4 mg PO QAM #90 caps 03/20/24 Portable Oxygen #1 ea 05/08/24 Results & Data (ED) Vital Signs Vital Signs - 24 hr 10/21/24 14:52 10/21/24 14:57 10/21/24 15:13 Temperature 36.6 C Temperature Source Rectal Pulse Rate 83 85 88 Pulse Rate [Apical] Pulse Rate from SpO2 Sensor 84 Pulse Rhythm Regular Pulse Strength Normal Respiratory Rate 16 18 Respiratory Effort / Characteristics Non-Labored Spontaneous Respiratory Depth Normal Blood Pressure 101/61 105/60 Blood Pressure [Left Arm] Blood Pressure Mean 74 75 Blood Pressure Mean [Left Arm] Blood Pressure Position Sitting Pulse Oximetry 94 92 Oxygen Delivery Method Nasal Cannula Nasal Cannula Oxygen Flow Rate 4 4 Sepsis Recent Fever Within 48 Hours No Sepsis New/Unexplained Change in Mental Status N/A Sepsis Action Taken by Nursing No Action Required 10/21/24 15:32 10/21/24 15:45 10/21/24 16:00 Temperature Temperature Source Pulse Rate 78 75 82 Pulse Rate [Apical] Pulse Rate from SpO2 Sensor 75 82 Pulse Rhythm Pulse Strength Respiratory Rate 22 21 Respiratory Effort / Characteristics Respiratory Depth Blood Pressure 89/63 L 110/76 106/69 Blood Pressure [Left Arm] Blood Pressure Mean 71 87 81 Blood Pressure Mean [Left Arm] Blood Pressure Position Pulse Oximetry 96 96 94 Oxygen Delivery Method Nasal Cannula Oxygen Flow Rate 4 Sepsis Recent Fever Within 48 Hours Sepsis New/Unexplained Change in Mental Status Sepsis Action Taken by Nursing 10/21/24 17:06 10/21/24 17:16 10/21/24 17:30 Temperature Temperature Source Pulse Rate 83 82 Pulse Rate [Apical] 81 Pulse Rate from SpO2 Sensor 82 78 Pulse Rhythm Pulse Strength Respiratory Rate 19 22 18 Respiratory Effort / Characteristics Non-Labored Spontaneous Respiratory Depth Normal Blood Pressure Blood Pressure [Left Arm] 106/69 Blood Pressure Mean Blood Pressure Mean [Left Arm] 81 Blood Pressure Position Pulse Oximetry 92 97 95 Oxygen Delivery Method Nasal Cannula Oxygen Flow Rate 3 Sepsis Recent Fever Within 48 Hours Sepsis New/Unexplained Change in Mental Status Sepsis Action Taken by Assisted Medications Current Medication List: was personally reviewed by me Laboratory Data Attestation: I reviewed the patient's lab results. 10/21/24 15:30 10/21/24 15:30 Lab Results 10/21/24 10/21/24 10/21/24 Range/Units 15:30 17:08 17:20 WBC 18.63 H (4.8-10.8) K/ul RBC 5.08 (4.70-6.10) M/uL Hgb 14.4 (14.0-18.0) g/dl Hct 43.6 (42.0-52.0) % MCV 85.8 (80.0-100.0) fL MCH 28.3 (25.0-34.0) pg MCHC 33.0 (32.0-36.0) g/dL RDW Std Deviation 41.8 (36.4-46.3) fL RDW Coeff of Chantal 13.4 (11.5-14.5) % Plt Count 284 (130-400) K/uL MPV 10.7 (9.4-12.4) fL Immature Gran % (Auto) 0.4 % Neut % (Auto) 92.8 % Lymph % (Auto) 1.3 % [place] % (Auto) 5.2 % Eos % (Auto) 0.0 % Baso % (Auto) 0.3 % Neut # (Auto) 17.29 H (1.40-6.50) K/uL Lymph # (Auto) 0.25 L (1.20-3.40) K/uL [place] # (Auto) 0.97 H (0.11-0.59) K/uL Eos # (Auto) 0.00 (0.00-0.50) K/uL Baso # (Auto) 0.05 (0.00-0.20) K/uL Immature Gran # (Auto) 0.07 (0.01-0.20) K/uL Sodium 131 L (136-145) mmol/L Potassium 5.1 (3.5-5.1) mmol/L Chloride 96 L (98-107) mmol/L Carbon Dioxide 27 (21-32) mmol/L Anion Gap 8 (3-11) BUN 32 H (6-23) mg/dl Creatinine 1.64 H (0.6-1.4) mg/dl Est Cr Clr Drug Dosing 29.2 ml/min eGFR 40.48 BUN/Creatinine Ratio 19.5 (10-20) Glucose 177 H (70-99(Fasting)) mg/dl Lactate 1.9 (0.4-2.0) mmol/L Calcium 8.9 (8.6-10.3) mg/dl Total Bilirubin 1.0 (0.2-1.0) mg/dl AST 221 H (13-39) U/L ALT 76 H (7-52) U/L Alkaline Phosphatase 86 (34-104) U/L Total Creatine Kinase 47161 H (30-223) U/L Total Protein 6.7 (6.0-8.3) gm/dl Albumin 4.0 (3.4-5.0) gm/dl Globulin 2.7 (2.5-4.0) gm/dl Albumin/Globulin Ratio 1.5 (0.9-2) Procalcitonin 3.40 H (0-0.5) ng/ml TSH < 0.010 L (0.300-4.500) uIu/ml Free T4 1.17 (0.61-1.60) ng/dl Adenovirus (PCR) Not Detected (NotDetected) B. pertussis DNA (PCR) Not Detected (NotDetected) B.parapertussis DNA PCR Not Detected (NotDetected) C. pneumoniae DNA (PCR) Not Detected (NotDetected) Coronavirus OC43 (PCR) Not Detected (NotDetected) Coronavirus HKU1 (PCR) Not Detected (NotDetected) Coronavirus 229E (PCR) Not Detected (NotDetected) SARS-CoV-2 (PCR) Not Detected (NotDetected) Coronavirus NL63 (PCR) Not Detected (NotDetected) Human Metapneumovir PCR Not Detected (NotDetected) Influenza Type A (PCR) Not Detected (NotDetected) Influenza Type B (PCR) Not Detected (NotDetected) M. pneumoniae (PCR) Not Detected (NotDetected) Parainfluenza 1 (PCR) Not Detected (NotDetected) Parainfluenza 2 (PCR) Not Detected (NotDetected) Parainfluenza 3 (PCR) Not Detected (NotDetected) Parainfluenza 4 (PCR) Not Detected (NotDetected) RSV (PCR) Not Detected (NotDetected) Entero/Rhino (PCR) Not Detected (NotDetected) Administered Medications Discontinued Medications Albuterol (Albut/Ipratrop 3mg/0.5mg Neb 3 Ml Vial) 3 ml NEB NOW STA; Protocol Stop: 10/21/24 16:27 Last Admin: 10/21/24 17:05 Dose: 3 ml Documented By: OANH Azithromycin (Azithromycin 250 Mg Tab) 500 mg PO NOW ONE Stop: 10/21/24 16:16 Last Admin: 10/21/24 17:48 Dose: 500 mg Documented By: OANH Sodium Chloride (Nss) 500 mls @ 999 mls/hr IV .Q31M ONE Stop: 10/21/24 16:43 Last Infusion: 10/21/24 19:29 Dose: Infused Documented By: Admin: 10/21/24 17:04 Dose: 999 mls/hr Documented By: OANH Ceftriaxone Sodium (Rocephin) 2,000 mg in 50 mls @ 100 mls/hr IV NOW STA Stop: 10/21/24 16:44 Last Infusion: 10/21/24 18:25 Dose: Infused Documented By: Admin: 10/21/24 17:49 Dose: 100 mls/hr Documented By: OANH Sodium Chloride (Nss) 1,000 mls @ 999 mls/hr IV .Q1H1M ONE Stop: 10/21/24 18:14 Last Infusion: 10/21/24 19:28 Dose: Infused Documented By: Admin: 10/21/24 17:49 Dose: 999 mls/hr Documented By: OANH Ioversol (Optiray 320 100ml) 94 ml IV ONCE ONE Stop: 10/21/24 17:58 Last Admin: 10/21/24 17:57 Dose: 94 ml Documented By: CARMENK Methylprednisolone (Methylprednisolone 125 Mg/2 Ml Vial) 125 mg IV NOW STA Stop: 10/21/24 16:27 Last Admin: 10/21/24 17:04 Dose: 125 mg Documented By: OANH Imaging Data Radiologist's Impression: Chest X-Ray 10/21/24 15:21 EXAM: Radiograph of the Chest 1 View INDICATION: Lung cancer. TECHNIQUE: Frontal view of the chest. COMPARISON: 04/20/2024 FINDINGS: Lungs and pleural spaces: Slight improved right basilar infiltrate. Stable patchy infiltrate left base. Persistent but improved right basilar pleural effusion and trace left basilar pleural effusion. No pneumothorax noted. Heart: Stable cardiomegaly. Mediastinum: Normal contour. Bones/joints: No fracture, erosion or dislocation. Soft tissues: No abnormality noted. No radiopaque foreign body noted. Vasculature: Stable ectatic calcified aorta. Upper abdomen: No abnormality noted. IMPRESSION: Slight improved right basilar aeration and right pleural effusion. Otherwise unchanged. ACT 112: Negative or not required by law. Electronically signed by Taylor Bedolla 10-21-2024 3:47 PM Hip/Pelvis X-Ray 10/21/24 16:16 EXAM: Radiographs of the Left Hip 3 Views INDICATION: Fell out of bed. TECHNIQUE: Front view pelvis and AP and frog leg lateral views of the left hip. COMPARISON: No relevant prior studies available. FINDINGS: Limitations: None. Bones/joints: Mild degenerative changes in the visualized lower lumbar segments. Soft tissues: No abnormality noted. No radiopaque foreign body noted. Vasculature: Atherosclerosis in the pelvis and proximal thighs. IMPRESSION: No acute findings in the left hip. ACT 112: Negative or not required by law. Electronically signed by Taylor Bedolla 10-21-2024 5:07 PM Sacrum and Coccyx X-Ray 10/21/24 16:16 EXAM: Radiographs of the Sacrum and Coccyx 3 Views INDICATION: Fell out of bed. TECHNIQUE: Frontal and lateral views of the sacrum and coccyx. COMPARISON: No relevant prior studies available. FINDINGS: Sacrum/coccyx: There is mild degenerative change in the lower lumbar segments. Arcuate lines of the sacrum are intact. Symmetrical sacroiliac sclerosis. No erosion. No acute fracture. Vertebrae: Visualized lumbar vertebrae are unremarkable. Soft tissues: No abnormality noted. No radiopaque foreign body noted. Vasculature: Moderate atherosclerotic calcifications noted diffusely. IMPRESSION: No acute findings in the sacrum or coccyx. ACT 112: Negative or not required by law. Electronically signed by Taylor Bedolla 10-21-2024 5:08 PM Abdomen/Pelvis CT 10/21/24 17:36 INDICATION: Sepsis. History of lung cancer. Right upper quadrant pain. COMPARISON: CT chest from 04/12/2024. TECHNIQUE: Axial CT images of the chest, abdomen and pelvis were obtained following IV contrast administration. Coronal and sagittal reformations were reviewed. FINDINGS: Chest: Negative for pulmonary embolism. The ascending thoracic aorta measures up to 4 cm maximum diameter. Negative for aortic dissection. The heart is mildly enlarged.. Small volume right pleural effusion, improved from prior. No pneumothorax. Enlarged mediastinal lymph nodes measuring up to 1.9 cm, unchanged from prior. Right upper lobe spiculated nodule measuring 0.5 cm, uncertain if present on prior CT no large pleural effusion present. Emphysema. Right middle and right lower lobe infiltrates. Area of round atelectasis in the left lower lobe with subsegmental atelectasis dependently in the left lower lobe. Bilateral calcified pleural pleural plaquing again noted. Degenerative changes in the spine and shoulders. No acute fracture. Abdomen and pelvis: Gallbladder distention. The liver, spleen, pancreas and adrenal glands appear unremarkable. No hydronephrosis. Bilateral renal cysts measuring up to 4.1 cm on the left and 3.6 cm on the right. Nonobstructing 5 mm left renal calculus. Right inguinal hernia containing fat and bowel loops. Left inguinal hernia containing fat and small amount of fluid.Mild amount of retained colonic stool. No evidence of bowel obstruction/colitis/appendicitis. No free air. No drainable fluid collection. Atheromatous plaquing of the abdominal aorta without dissection or aneurysm. Mild amount of retained colonic stool. The urinary bladder is mildly distended. Moderate prostate gland enlargement. Degenerative changes in the hips and spine. No acute osseous abnormality evident. IMPRESSION: 1. Findings concerning for right middle and right lower lobe pneumonia. 2. Mediastinal adenopathy, unchanged from prior. 3. Right upper lobe spiculated nodule measuring 0.5 cm, uncertain if present on prior CT no large pleural effusion present. Follow-up advised. 4. Small right pleural effusion, improved from prior. 5. Right inguinal hernia containing fat and bowel loops. No evidence of bowel obstruction. 6. Mild amount of retained colonic stool. 6. Gallbladder distention. 7. Bilateral renal cysts. 8. Moderate prostate gland enlargement. ACT 112: Positive. There are findings on this exam that require communication between the performing entity and the patient following Patient Test Result Information Act ([place] ACT 112) guidelines. Electronically signed by Cresencio Solis 10-21-2024 6:[address] 10/21/24 17:36 INDICATION: Sepsis. History of lung cancer. Right upper quadrant pain. COMPARISON: CT chest from 04/12/2024. TECHNIQUE: Axial CT images of the chest, abdomen and pelvis were obtained following IV contrast administration. Coronal and sagittal reformations were reviewed. FINDINGS: Chest: Negative for pulmonary embolism. The ascending thoracic aorta measures up to 4 cm maximum diameter. Negative for aortic dissection. The heart is mildly enlarged.. Small volume right pleural effusion, improved from prior. No pneumothorax. Enlarged mediastinal lymph nodes measuring up to 1.9 cm, unchanged from prior. Right upper lobe spiculated nodule measuring 0.5 cm, uncertain if present on prior CT no large pleural effusion present. Emphysema. Right middle and right lower lobe infiltrates. Area of round atelectasis in the left lower lobe with subsegmental atelectasis dependently in the left lower lobe. Bilateral calcified pleural pleural plaquing again noted. Degenerative changes in the spine and shoulders. No acute fracture. Abdomen and pelvis: Gallbladder distention. The liver, spleen, pancreas and adrenal glands appear unremarkable. No hydronephrosis. Bilateral renal cysts measuring up to 4.1 cm on the left and 3.6 cm on the right. Nonobstructing 5 mm left renal calculus. Right inguinal hernia containing fat and bowel loops. Left inguinal hernia containing fat and small amount of fluid.Mild amount of retained colonic stool. No evidence of bowel obstruction/colitis/appendicitis. No free air. No drainable fluid collection. Atheromatous plaquing of the abdominal aorta without dissection or aneurysm. Mild amount of retained colonic stool. The urinary bladder is mildly distended. Moderate prostate gland enlargement. Degenerative changes in the hips and spine. No acute osseous abnormality evident. IMPRESSION: 1. Findings concerning for right middle and right lower lobe pneumonia. 2. Mediastinal adenopathy, unchanged from prior. 3. Right upper lobe spiculated nodule measuring 0.5 cm, uncertain if present on prior CT no large pleural effusion present. Follow-up advised. 4. Small right pleural effusion, improved from prior. 5. Right inguinal hernia containing fat and bowel loops. No evidence of bowel obstruction. 6. Mild amount of retained colonic stool. 6. Gallbladder distention. 7. Bilateral renal cysts. 8. Moderate prostate gland enlargement. ACT 112: Positive. There are findings on this exam that require communication between the performing entity and the patient following Patient Test Result Information Act ([place] ACT 112) guidelines. Electronically signed by Cresencio Solis 10-21-2024 6:50 PM Discharge Plan Visit Data Chief Complaint: Fall Stated Complaint: FALL ED Provider: Chema Valentine Discharge Problem: COPD (chronic obstructive pulmonary disease), Acute hypoxemic respiratory failure, Right lower lobe pneumonia, Weakness, Acute dehydration Patient Disposition: Admitted As Inpatient Discharge Instructions Interventions: ED Discharge Assessment Last Done: 10/21/24 19:20 Discharge Problem: COPD (chronic obstructive pulmonary disease) Qualifiers: COPD type: unspecified COPD Qualified Code(s): J44.9 - Chronic obstructive pulmonary disease, unspecified Right lower lobe pneumonia Qualifiers: Pneumonia type: due to unspecified organism Qualified Code(s): J18.9 - Pneumonia, unspecified organism
[2024-10-21 16:00] LABS: Basophils # (auto) 0.05 K/uL (0.00-0.20); Basophils % (auto) 0.3 %; Immature Granulocytes # (auto) 0.07 K/uL (0.01-0.20); Immature Granulocytes % (auto) 0.4 %; Lymphocytes # (auto) 0.25 K/uL (1.20-3.40); Lymphocytes % (auto) 1.3 %; Monocytes # (auto) 0.97 K/uL (0.11-0.59); Monocytes % (auto) 5.2 %; Neutrophils # (auto) 17.29 K/uL (1.40-6.50); Neutrophils % (auto) 92.8 %
[2024-10-21 16:02] LABS: Alanine Aminotransferase 76 U/L (7-52); Albumin Globulin Ratio 1.5 (0.9-2); Alkaline Phosphatase 86 U/L (34-104); Anion Gap 8 (3-11); Aspartate Aminotransferase 221 U/L (13-39); BUN Creatinine Ratio 19.5 (10-20); Blood Urea Nitrogen 32 mg/dl (6-23); Calcium 8.9 mg/dl (8.6-10.3); Carbon Dioxide 27 mmol/L (21-32); Chloride 96 mmol/L (98-107); Creatinine Clr Calc Pharmacy 29.2 ml/min; Globulin 2.7 gm/dl (2.5-4.0); Glucose 177 mg/dl (70-99(Fasting)); Potassium 5.1 mmol/L (3.5-5.1); Sodium 131 mmol/L (136-145); Total Protein 6.7 gm/dl (6.0-8.3)
[2024-10-21] MEDS: methylPREDNISolone 125 MG/2 ML VIAL IV STA (17:04)
[2024-10-21] MEDS: SODIUM CHLORIDE 0.9% 500 ML IV ONE (17:04)
[2024-10-21] MEDS: ALBUT/IPRATROP 3MG/0.5MG NEB 3 ML VIAL NEB STA (17:05)
--- NOTE | 2024-10-21 17:07 | XRay Report ---
EXAM: Radiographs of the Left Hip 3 Views INDICATION: Fell out of bed. TECHNIQUE: Front view pelvis and AP and frog leg lateral views of the left hip. COMPARISON: No relevant prior studies available. FINDINGS: Limitations: None. Bones/joints: Mild degenerative changes in the visualized lower lumbar segments. Soft tissues: No abnormality noted. No radiopaque foreign body noted. Vasculature: Atherosclerosis in the pelvis and proximal thighs. IMPRESSION: No acute findings in the left hip. ACT 112: Negative or not required by law. Electronically signed by Taylor Bedolla 10-21-2024 5:07 PM
--- NOTE | 2024-10-21 17:09 | XRay Report ---
EXAM: Radiographs of the Sacrum and Coccyx 3 Views INDICATION: Fell out of bed. TECHNIQUE: Frontal and lateral views of the sacrum and coccyx. COMPARISON: No relevant prior studies available. FINDINGS: Sacrum/coccyx: There is mild degenerative change in the lower lumbar segments. Arcuate lines of the sacrum are intact. Symmetrical sacroiliac sclerosis. No erosion. No acute fracture. Vertebrae: Visualized lumbar vertebrae are unremarkable. Soft tissues: No abnormality noted. No radiopaque foreign body noted. Vasculature: Moderate atherosclerotic calcifications noted diffusely. IMPRESSION: No acute findings in the sacrum or coccyx. ACT 112: Negative or not required by law. Electronically signed by Taylor Bedolla 10-21-2024 5:08 PM
--- NOTE | 2024-10-21 17:12 | History & Physical Report ---
Date of Service October 21, 2024 Assessment & Plan (1) Sepsis: Plan: No definitive source on admission but most likely pneumonia Biofire negative CT chest to assess pneumonia diagnosis better CT A/P due to RUQ abdominal pain with elevated LFTs Ceftriaxone + azithromycin given in the ER, ongoing antibiotics depending on further workup Follow up blood culture UA pending Sputum culture pending (2) Acute respiratory failure with hypoxia: Plan: Suspect secondary to Sepsis as above Aim O2 sats > 90% (3) Rhabdomyolysis: Plan: Found on floor CK 14,163 U/L IV fluids, repeat level with AM labs (4) Elevated transaminase level: Plan: ?due to rhabdomyolysis CT as above to assess for gallbladder disease (5) Graves disease: Plan: Add TSH to prior labs, patient reports taking methimazole although not on medication list and on endocrinology notes he may have stopped this when free T4 was low and TSH high in June (6) Emphysema/COPD: Plan: Concern for exacerbation in the ER with Solu-medrol and duoneb given No current wheezing on exam and with concern for sepsis will hold off further steroids and just use duoneb PRN (7) Adenocarcinoma of lung, stage 3: Plan: No active treatment planned for this - more of a comfort care approach per prior pulmonology notes (8) Pneumonia: Plan VTE Prophylaxis - heparin 5000 units SQ BID Diet - regular Disposition - admit to PCU Admission and Anticipated Discharge Date Admission Date: October 21, 2024 History of Present Illness Chief Complaint: Fall out of bed Primary Care Provider: Corby Zuniga DO Sohan Gaytan is an 84 year old male with metastatic lung adenocarcinoma who presents to the ER after a fall out of bed earlier this morning. He reports feeling well before this. His has Alzheimers and so spent multiple hours on the floor until his son was able to help him around 9am this morning and called EMS. He denies any new shortness of breath, nasal congestion or cough. No fever, chills, chest pain, abdominal pain, nausea, vomiting, diarrhea, dizziness or urinary symptoms. Allergies Allergy/AdvReac Type Severity Reaction Status Date / Time No Known Allergies Allergy Verified 10/21/24 16:55 Home Medications Medication Instructions Recorded Confirmed Type cholecalciferol (vitamin D3) 25 2,000 units PO QAM 08/23/19 10/21/24 History mcg (1,000 unit) tablet aspirin 81 mg tablet,delayed 81 mg PO QAM 12/17/19 10/21/24 History release Wheeled Walker #1 ea 07/01/23 10/21/24 Rx acetaminophen 500 mg tablet 500 mg PO Q6H PRN Pain 10/20/23 10/21/24 History (Tylenol Extra Strength) gabapentin 300 mg capsule 300 mg PO BID PRN pain #60 caps 01/14/24 10/21/24 Rx ipratropium 0.5 mg-albuterol 3 mg 3 ml NEB QID PRN Shortness Of 02/03/24 10/21/24 History (2.5 mg base)/3 mL nebulization Breath Or Wheezing soln fluticasone furoate 100 1 inh inhalation DAILY #30 ea 02/07/24 10/21/24 Rx mcg/actuation blister powder for inhalation (Arnuity Ellipta) tamsulosin 0.4 mg capsule 0.4 mg PO QAM #90 caps 03/20/24 10/21/24 Rx furosemide 20 mg tablet See Rx Instructions .Route .COMPLEX 04/12/24 10/21/24 History Portable Oxygen #1 ea 05/08/24 10/21/24 Rx Past Med/Surg History Problem List (Updated 10/22/24 @ 07:01 by Willy Jimenez MD) Elevated transaminase level Pneumonia Acute dehydration (Acute) Weakness (Acute) Right lower lobe pneumonia (Acute) Acute hypoxemic respiratory failure (Acute) COPD (chronic obstructive pulmonary disease) (Acute) COPD (chronic obstructive pulmonary disease) Acute respiratory failure with hypoxia Rhabdomyolysis Sepsis Brennon's thyroiditis Graves disease Physical debility Decubital ulcer H/O pleural effusion Palliative care by specialist Advanced care planning/counseling discussion Cancer related pain Dyspnea and respiratory abnormalities Weakness generalized Falls frequently Right knee pain Knee pain Elevated blood sugar Adenocarcinoma of lung, stage 3 Hemothorax, postoperative Anemia Chronic kidney disease with active medical management without dialysis, stage 3 (moderate) Chronic kidney disease GI bleeding Emphysema/COPD Cor pulmonale Pulmonary hypertension Elevated liver enzymes Right heart failure Right middle lobe pneumonia (Acute) Hyperthyroidism Abnormal chest CT Ventricular tachycardia Cardiomyopathy Hyponatremia Hypoxia (Acute) Elevated troponin Vitamin D deficiency Elevated TSH Postural dizziness with near syncope Cervical spondylosis Large B-cell lymphoma Stage 2 chronic kidney disease Positive colorectal cancer screening using Cologuard test Mixed conductive and sensorineural hearing loss (Acute) Postherpetic neuralgia (Chronic) HTN (hypertension) (Chronic) Medical History Pleural effusion Acute kidney injury Acute hypoxemic respiratory failure Hypertension Sensorineural hearing loss (SNHL) of both ears Cor pulmonale Pulmonary hypertension Pulmonary nodule RLL Chronic kidney disease History of shingles takes gabapentin for pain Hyperthyroidism Emphysema/COPD Lymphoma (~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 Surgical History History of nasal surgery (~2014) due to CA Hx of esophagogastroduodenoscopy Hx of colonoscopy H/O varicose vein ligation Family History Father , Age 91 Renal failure Mother Breast cancer Denies family history of Ovarian cancer Prostate cancer Myocardial infarction Colorectal cancer Social History Smoking Status: Former smoker Tobacco Type: Cigarettes Age Started Using Tobacco: 18; Age Quit Using Tobacco: 61; Cigarettes Per Day: 1 PPD; Second Hand Exposure: No; Do You Dip or Chew Tobacco: No; Tobacco Cessation Education Requested by Patient: No Hx Alcohol Use: No Hx Substance Use: No Preferred Language: Icelandic Communication Ability: Effective Visual Impairment: No Limitations Hearing Ability: Hard of Hearing Software Intern Required: No Beliefs That Will Affect Care: None marital status: Current Living Situation: Spouse current occupational status: retired How many Children do You have: 1 Other Information That Helps Us Care for You: No Feels Safe at Home: Yes Safety Concerns: Feels Safe At This Time Childhood Exposure to Second-Hand Smoke: No Diet: regular caffeine: Yes Dental Care, Regularly: No Physical Activity Frequency: Does not Exercise Seatbelt Use: always Sunscreen Use: No Do you think of yourself as: straight/heterosexual Gender Identity: Male Assistive Devices: Oxygen - at Night and Walker Review of Systems Review of Systems: All systems reviewed & are unremarkable except as noted in HPI & below Physical Exam Constitutional: well developed; + not well nourished and no acute distress Eyes: PERRL, conjunctivae normal, anicteric sclerae ENMT: external ear and nose normal, oropharynx normal Respiratory: normal respiratory effort, lungs clear to auscultation Cardiovascular: RRR, no murmur, no edema Gastrointestinal (Abdomen): normal bowel sounds, soft, nontender, no hepatosplenomegaly Musculoskeletal: no cyanosis or clubbing, extremities motor strength 5/5 Skin: no rashes, warm and dry Neurologic: moves all extremities and awake; not confused Psychiatric: A+Ox3, euthymic affect Genitourinary: no CVA tenderness Results & Data Results & Data Vital Signs (Past 12 Hours) Vital Signs Temp Pulse Resp BP Pulse Ox O2 Del Method O2 Flow Rate 10/21/24 15:32 78 89/63 L 96 Nasal Cannula 4 10/21/24 15:13 88 10/21/24 14:57 85 18 105/60 92 Nasal Cannula 4 10/21/24 14:52 36.6 C 83 16 101/61 94 Nasal Cannula 4 Laboratory Results Abnormal lab results 10/21/24 Range/Units 15:30 WBC 18.63 H (4.8-10.8) K/ul Neut # (Auto) 17.29 H (1.40-6.50) K/uL Lymph # (Auto) 0.25 L (1.20-3.40) K/uL Sanders # (Auto) 0.97 H (0.11-0.59) K/uL Sodium 131 L (136-145) mmol/L Chloride 96 L (98-107) mmol/L BUN 32 H (6-23) mg/dl Creatinine 1.64 H (0.6-1.4) mg/dl Glucose 177 H (70-99(Fasting)) mg/dl AST 221 H (13-39) U/L ALT 76 H (7-52) U/L Diagnostic Findings Radiograph of the Chest 1 View INDICATION: Lung cancer. TECHNIQUE: Frontal view of the chest. COMPARISON: 04/20/2024 FINDINGS: Lungs and pleural spaces: Slight improved right basilar infiltrate. Stable patchy infiltrate left base. Persistent but improved right basilar pleural effusion and trace left basilar pleural effusion. No pneumothorax noted. Heart: Stable cardiomegaly. Mediastinum: Normal contour. Bones/joints: No fracture, erosion or dislocation. Soft tissues: No abnormality noted. No radiopaque foreign body noted. Vasculature: Stable ectatic calcified aorta. Upper abdomen: No abnormality noted. IMPRESSION: Slight improved right basilar aeration and right pleural effusion. Otherwise unchanged. Radiographs of the Sacrum and Coccyx 3 Views INDICATION: Fell out of bed. TECHNIQUE: Frontal and lateral views of the sacrum and coccyx. COMPARISON: No relevant prior studies available. FINDINGS: Sacrum/coccyx: There is mild degenerative change in the lower lumbar segments. Arcuate lines of the sacrum are intact. Symmetrical sacroiliac sclerosis. No erosion. No acute fracture. Vertebrae: Visualized lumbar vertebrae are unremarkable. Soft tissues: No abnormality noted. No radiopaque foreign body noted. Vasculature: Moderate atherosclerotic calcifications noted diffusely. IMPRESSION: No acute findings in the sacrum or coccyx. Radiographs of the Left Hip 3 Views INDICATION: Fell out of bed. TECHNIQUE: Front view pelvis and AP and frog leg lateral views of the left hip. COMPARISON: No relevant prior studies available. FINDINGS: Limitations: None. Bones/joints: Mild degenerative changes in the visualized lower lumbar segments. Soft tissues: No abnormality noted. No radiopaque foreign body noted. Vasculature: Atherosclerosis in the pelvis and proximal thighs. IMPRESSION: No acute findings in the left hip. Medications Administered ER Medications Given: Normal saline 500ml bolus Ceftriaxone 2000mg IV Azithromycin 500mg PO Duoneb 3ml NEB Solu-Medrol 125mg IV ECG Rate (beats per minute): 99 Rhythm: normal sinus Findings: + other (premature supraventricular complexes and PVCs), + LAFB and + T-wave inversion (Anterior) Comparison ECG Date: from (October 20, 2023) Change: the following changes noted (LAFB is new, TWI in anterior leads) Code Status & VTE Plan Code Status Full as discussed with the patient VTE Prophylaxis Plan VTE Prophylaxis will be ordered: Yes PG Care Time/CCT Total # of Minutes Spent Total Time Spent with Patient: Total time spent is greater than 50% in coordination of care (as documented) at patient's floor/unit and/or counseling patient: Coding Level of Care Code 61670 INT INP/OBS CARE 3/75MIN Diagnoses Sepsis A41.9 Acute respiratory failure with hypoxia J96.01 Rhabdomyolysis M62.82 Elevated transaminase level R74.01 Graves disease E05.00 Emphysema/COPD J43.9 Adenocarcinoma of lung, stage 3 C34.90 Pneumonia J18.9
[2024-10-21 17:35] LABS: Thyroid Stimulating Hormone < 0.010 uIu/ml (0.300-4.500)
[2024-10-21 17:41] LABS: Creatine Kinase 14163 U/L (30-223)
[2024-10-21] MEDS: AZITHROMYCIN 250 MG TAB PO ONE (17:48)
[2024-10-21] MEDS: SODIUM CHLORIDE 0.9% 1,000 ML IV ONE (17:49)
[2024-10-21] MEDS: cefTRIAXone SODIUM 2,000 MG/50 ML BAG IV STA (17:49)
[2024-10-21] MEDS: OPTIRAY 320 100ml IV ONE (17:57)
[2024-10-21 18:21] LABS: Adenovirus PCR Not Detected (NotDetected); Bordetella parapertussis PCR Not Detected (NotDetected); Bordetella pertussis PCR Not Detected (NotDetected); Chlamydia pneumoniae PCR Not Detected (NotDetected); Coronavirus 229E PCR Not Detected (NotDetected); Coronavirus CoV-2 (COVID19)PCR Not Detected (NotDetected); Coronavirus HKU1 PCR Not Detected (NotDetected); Coronavirus NL63 PCR Not Detected (NotDetected); Coronavirus OC43PCR Not Detected (NotDetected); Human Metapneumovirus PCR Not Detected (NotDetected); Influenza A PCR Not Detected (NotDetected); Influenza B PCR Not Detected (NotDetected); Mycoplasma pneumoniae PCR Not Detected (NotDetected); Parainfluenza Virus 1 PCR Not Detected (NotDetected); Parainfluenza Virus 2 PCR Not Detected (NotDetected); Parainfluenza Virus 3 PCR Not Detected (NotDetected); Parainfluenza Virus 4 PCR Not Detected (NotDetected); Respiratory Syncytial VirusPCR Not Detected (NotDetected); Rhinovirus/Enterovirus PCR Not Detected (NotDetected)
[2024-10-21 18:27] LABS: T4 Free Thyroxine 1.17 ng/dl (0.61-1.60)
--- NOTE | 2024-10-21 18:50 | CT Scan Report ---
INDICATION: Sepsis. History of lung cancer. Right upper quadrant pain. COMPARISON: CT chest from 04/12/2024. TECHNIQUE: Axial CT images of the chest, abdomen and pelvis were obtained following IV contrast administration. Coronal and sagittal reformations were reviewed. FINDINGS: Chest: Negative for pulmonary embolism. The ascending thoracic aorta measures up to 4 cm maximum diameter. Negative for aortic dissection. The heart is mildly enlarged.. Small volume right pleural effusion, improved from prior. No pneumothorax. Enlarged mediastinal lymph nodes measuring up to 1.9 cm, unchanged from prior. Right upper lobe spiculated nodule measuring 0.5 cm, uncertain if present on prior CT no large pleural effusion present. Emphysema. Right middle and right lower lobe infiltrates. Area of round atelectasis in the left lower lobe with subsegmental atelectasis dependently in the left lower lobe. Bilateral calcified pleural pleural plaquing again noted. Degenerative changes in the spine and shoulders. No acute fracture. Abdomen and pelvis: Gallbladder distention. The liver, spleen, pancreas and adrenal glands appear unremarkable. No hydronephrosis. Bilateral renal cysts measuring up to 4.1 cm on the left and 3.6 cm on the right. Nonobstructing 5 mm left renal calculus. Right inguinal hernia containing fat and bowel loops. Left inguinal hernia containing fat and small amount of fluid.Mild amount of retained colonic stool. No evidence of bowel obstruction/colitis/appendicitis. No free air. No drainable fluid collection. Atheromatous plaquing of the abdominal aorta without dissection or aneurysm. Mild amount of retained colonic stool. The urinary bladder is mildly distended. Moderate prostate gland enlargement. Degenerative changes in the hips and spine. No acute osseous abnormality evident. IMPRESSION: 1. Findings concerning for right middle and right lower lobe pneumonia. 2. Mediastinal adenopathy, unchanged from prior. 3. Right upper lobe spiculated nodule measuring 0.5 cm, uncertain if present on prior CT no large pleural effusion present. Follow-up advised. 4. Small right pleural effusion, improved from prior. 5. Right inguinal hernia containing fat and bowel loops. No evidence of bowel obstruction. 6. Mild amount of retained colonic stool. 6. Gallbladder distention. 7. Bilateral renal cysts. 8. Moderate prostate gland enlargement. ACT 112: Positive. There are findings on this exam that require communication between the performing entity and the patient following Patient Test Result Information Act ([place] ACT 112) guidelines. Electronically signed by Cresencio Solis 10-21-2024 6:50 PM
[2024-10-21] MEDS ORDERED: ALBUT/IPRATROP 3MG/0.5MG NEB 3 ML VIAL NEB PRN (19:47)
[2024-10-21 21:12] LABS: Appearance Urine Cloudy (Clear); Bacteria Urine Automated None Seen (None Seen); Bilirubin Urine Negative (Negative); Blood Urine 3+ (Negative); Color Urine Dark Yellow; Glucose Urine UA Negative (Negative); Ketones Urine Negative (Negative); Leukocyte Esterase Urine Trace (Negative); Nitrite Urine Negative (Negative); Protein Urine 1+ (Negative); RBC Urine Automated >20 /hpf (0-2); Specific Gravity Urine 1.025 (1.000-1.030); Urobilinogen Urine Negative (Negative); WBC Urine Automated 0-5 /hpf (0-5); pH Urine 5.5 (4.5-7.5)
[2024-10-21] MEDS: SODIUM CHLORIDE 0.9% 1,000 ML IV SCH (21:20)
[2024-10-22 07:17] LABS: Hematocrit (blood only) 39.4 % (42.0-52.0); Hemoglobin 12.9 g/dl (14.0-18.0); Mean Corpuscular Hgb Conc 32.7 g/dL (32.0-36.0); Mean Corpuscular Volume 85.5 fL (80.0-100.0); Mean Platelet Volume 11.1 fL (9.4-12.4); Platelet Count 271 K/uL (130-400); RDW Coefficient of Variation 13.6 % (11.5-14.5); RDW Standard Deviation 42.1 fL (36.4-46.3); Red Blood Count 4.61 M/uL (4.70-6.10); White Blood Count 19.12 K/ul (4.8-10.8)
[2024-10-22 07:37] LABS: Albumin Globulin Ratio 1.2 (0.9-2); Albumin Level 3.2 gm/dl (3.4-5.0); BUN Creatinine Ratio 25.6 (10-20); Bilirubin,Total 0.5 mg/dl (0.2-1.0); Calcium 8.4 mg/dl (8.6-10.3); Creatinine Clr Calc Pharmacy 38.3 ml/min; Globulin 2.7 gm/dl (2.5-4.0); Phosphorus 3.9 mg/dl (2.5-4.9); Potassium 4.5 mmol/L (3.5-5.1); Total Protein 5.9 gm/dl (6.0-8.3)
[2024-10-22 07:40] LABS: Basophils # (auto) 0.02 K/uL (0.00-0.20); Basophils % (auto) 0.1 %; Immature Granulocytes # (auto) 0.17 K/uL (0.01-0.20); Immature Granulocytes % (auto) 0.9 %; Lymphocytes # (auto) 0.64 K/uL (1.20-3.40); Lymphocytes % (auto) 3.3 %; Monocytes # (auto) 0.27 K/uL (0.11-0.59); Monocytes % (auto) 1.4 %; Neutrophils # (auto) 18.02 K/uL (1.40-6.50); Neutrophils % (auto) 94.3 %
[2024-10-22] MEDS: TAMSULOSIN HCL 0.4 MG CAP PO SCH (09:42)
[2024-10-22] MEDS: AZITHROMYCIN 250 MG TAB PO SCH (09:42)
[2024-10-22] MEDS: ASPIRIN 81 MG ECTAB PO SCH (09:42)
[2024-10-22] MEDS: HEPARIN SOD 5,000 UNIT/0.5 ML VIAL SQ SCH (09:47)
[2024-10-22] MEDS: FUROSEMIDE 40 MG/4 ML VIAL IV SCH (09:47)
--- NOTE | 2024-10-22 10:38 | Hospitalist Progress Note ---
Date of Service October 22, 2024 Assessment & Plan (1) Sepsis: Plan: Suspected on admission. No need for pressor support. Evidence of pneumonia seen on chest CT scan. (2) Acute diastolic CHF (congestive heart failure): Plan: BNP greater than 1000. Chest x-ray reveals bilateral effusions, CHF, fluid in the minor fissure. Parenteral Lasix therapy with Harvey catheter to monitor intake and output. Serial chest x-ray. (3) Acute respiratory failure with hypoxia: Plan: Supplemental oxygen per nasal cannula to maintain saturation greater than 90%. Wean off as tolerated. Treat underlying pneumonia and CHF. (4) Rhabdomyolysis: Plan: Found on floor. CK 14,163 U/L on admission. Serial labs. (5) Elevated transaminase level: Plan: Most likely due to passive hepatic congestion. Should improve with treatment of CHF. Will follow (6) Graves disease: Plan: Admission TSH level is low. Free T4 level however is normal. (7) Emphysema/COPD: Plan: Acute exacerbation due to pneumonia and CHF. Fortunately he has no active wheezing at this time. Nebulizer treatments ordered (8) Adenocarcinoma of lung, stage 3: Plan: No active treatment planned for this. Comfort care approach per prior pulmonology notes (9) Pneumonia: Plan: Currently on Zosyn, day 1. Sputum cultures pending. Plan To be determined Admission and Anticipated Discharge Date Admission Date: October 21, 2024 Subjective Alert and oriented. No distress. Clinically it appears he has a combination of pneumonia and diastolic congestive heart failure. He was found down on his floor for quite some time and also presented with rhabdomyolysis. CK on admission was slightly above 14,000 and is now down to 9500. Chest x-ray is consistent with congestive heart failure with bilateral effusions and minor fissure fluid. Recent cardiac echo completed in March of this year revealed moderate LVH with normal ejection fraction and mild mitral regurgitation. He is now on intravenous Lasix and Harvey catheter has been placed. Stat BNP was 1199. White count elevated on admission to 18,000 with elevated procalcitonin level. He is requiring supplemental oxygen at 3 L/min to maintain saturation 94%. Chest CT scan on admission reveals evidence of right sided pneumonia. Review of Systems 2 Review of Systems: Constitutionalno fever or chills ENTno blurred vision, no double vision, no epistaxis, no sore throat Respiratoryproductive cough. Dyspnea on exertion. No wheezing. Cardiacno palpitations, no chest pain, no syncope Huy nausea, vomiting, diarrhea, melena, hematochezia GUno urinary retention, no urinary incontinence, no dysuria, no hematuria Musculoskeletalno joint pain, no muscle tenderness Skinno bruising, no rashes, no pruritus Neurono isolated weakness, no paresthesia, no weakness Psychno depression, no anxiety Physical Exam 2 Physical Exam: General-alert and oriented x3, no fever HEENT-head atraumatic and normocephalic, pupils equal and reactive to light, extraocular muscles intact Neck-no lymphadenopathy or thyromegaly, trachea midline Chest-scattered bilateral rhonchi. Faint bibasilar inspiratory rales. No wheezing Cardiac-regular rate and rhythm, normal S1 and S2 Abdomen-normal bowel sounds, no hepatosplenomegaly Extremities-no cyanosis, clubbing, or edema Neuro-cranial nerves II through XII intact, motor and sensory function within normal limits, strength symmetrical, no focal deficits Psych-normal affect, normal mood Results & Data Results & Data Vital Signs (Past 12 Hours) Vital Signs Temp Pulse Resp BP Pulse Ox O2 Del Method O2 Flow Rate 10/22/24 09:34 Nasal Cannula 3 10/22/24 08:00 36.9 C 86 18 115/70 94 Room Air 10/22/24 03:19 36.8 C 81 16 117/61 90 Nasal Cannula 10/21/24 23:07 36.5 C 75 16 144/76 H 99 Nasal Cannula Laboratory Results 10/22/24 06:42 10/22/24 06:42 PG Care Time/CCT Total # of Minutes Spent Total Time Spent with Patient: Total time spent is greater than 50% in coordination of care (as documented) at patient's floor/unit and/or counseling patient: Coding Level of Care Code 68580 SUB INP/OBS CARE 3/50MIN Diagnoses Sepsis A41.9 Acute diastolic CHF (congestive heart failure) I50.31 Acute respiratory failure with hypoxia J96.01 Rhabdomyolysis M62.82 Elevated transaminase level R74.01 Graves disease E05.00 Emphysema/COPD J43.9 Adenocarcinoma of lung, stage 3 C34.90 Pneumonia J18.9
--- NOTE | 2024-10-22 12:11 | Electrocardiogram Report ---
Test Reason : Blood Pressure : */* mmHG Vent. Rate : 88 BPM Atrial Rate : 77 BPM P-R Int : 184 ms QRS Dur : 80 ms QT Int : 370 ms P-R-T Axes : 45 -63 -17 degrees QTcB Int : 447 ms Sinus rhythm with Premature atrial complexes Low voltage QRS Left anterior fascicular block Cannot rule out Anterior infarct , age undetermined Abnormal ECG When compared with ECG of 12-Apr-2024 18:59, Premature ventricular complexes are no longer Present Confirmed by Hu West ([id number]) on 10/22/2024 12:11:12 PM Referred By: REFERRED SELF Confirmed By: Hu West
[2024-10-22] MEDS: FLUTICASONE FUROATE 100MCG 14 PUFFS/INHALER INH SCH (13:02)
[2024-10-22] MEDS: PIPERACILLIN/TAZOBACTAM 4.5 GM/100 ML BAG IV ONE (13:37)
[2024-10-22] MEDS: PIPERACILLIN/TAZOBACTAM 4.5 GM/100 ML BAG IV SCH (15:13)
[2024-10-22] MEDS ORDERED: cefTRIAXone SODIUM 2,000 MG/50 ML BAG IV SCH (16:00)
[2024-10-23 06:55] LABS: Basophils # (auto) 0.02 K/uL (0.00-0.20); Basophils % (auto) 0.1 %; Hemoglobin 11.3 g/dl (14.0-18.0); Immature Granulocytes # (auto) 0.08 K/uL (0.01-0.20); Immature Granulocytes % (auto) 0.5 %; Lymphocytes % (auto) 3.8 %; Mean Corpuscular Hgb Conc 33.2 g/dL (32.0-36.0); Mean Corpuscular Volume 84.4 fL (80.0-100.0); Mean Platelet Volume 10.7 fL (9.4-12.4); Monocytes # (auto) 0.87 K/uL (0.11-0.59); Monocytes % (auto) 5.6 %; Neutrophils # (auto) 14.04 K/uL (1.40-6.50); Platelet Count 270 K/uL (130-400); RDW Coefficient of Variation 13.8 % (11.5-14.5); RDW Standard Deviation 42.9 fL (36.4-46.3); Red Blood Count 4.03 M/uL (4.70-6.10); White Blood Count 15.61 K/ul (4.8-10.8)
[2024-10-23 07:19] LABS: Calcium 8.3 mg/dl (8.6-10.3); Creatinine Clr Calc Pharmacy 36.3 ml/min; Potassium 4.1 mmol/L (3.5-5.1)
[2024-10-23 09:24] LABS: Albumin Level 3.1 gm/dl (3.4-5.0); Bilirubin,Total 0.5 mg/dl (0.2-1.0)
[2024-10-23 09:40] LABS: Total Protein 5.4 gm/dl (6.0-8.3)
--- NOTE | 2024-10-23 14:54 | Palliative Care Consultation ---
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 (3) Weakness generalized: (4) Advanced care planning/counseling discussion: Met with pt at bedside, he was sitting upright eating lunch. He shared that he lives in [facility] with his Lolis, who has Alzheimer's but is still mostly independent with intermittent confusion. He shared that they have been for several years, and have one adult son (Jae) together and he has a adult daughter from a previous marriage. He shared that his son lives only a few miles away and has been checking in on his since he has been at [facility]. He shared that he has a LW/AD naming Jae as his MDM proxy. His daughter lives in [place] and does not visit very often. Pt expressed that being home with his is of most value to him, but also shared that he is aware that he is too weak to go home at the present time. He shared that he wishes to stay in the hospital and possibly IPR for strength building prior to retuning home. Pt shared that he wants to pursue all life prolonging therapy but "never want to be kept alive on machines". He shared that he has made his son aware of his wishes. Given pt's stated goals we discussed resuscitation. Helped pt understand that CPR is only done when a patient has , with the goal of returning a circulation after , and often has serious complications including but not limited to broken ribs, punctured lungs, loss of function/cognition, and organ failure requiring assisted ventilator dependence/HD. Patient shared that he would want CPR but would not want to be placed on a ventilator. Discussed that if his heart were to stop, he would most certainly require intubation and mechanical ventilation. Pt questioned why "everyone that comes in my room is talking about my " and requested time to think about code status. Pt agreeable to revisiting conversation at a later time. Thank you for allowing us to participate in the ongoing care of this patient. Palliative care will continue to follow and be available for ongoing [facility] discu ssions. Please don't hesitate to call or page with any additional concerns. (5) Palliative care by specialist: Met with and introduced pt to Palliative Care services. Helped pt understand role of Palliative care in helping manage symptoms, guide advanced planning discussions, and assist with navigation in setting of life limiting disease processes. Plan see above History of Present Illness Reason for Consultation: Goals of care Requesting Physician: Jerardo Jimenez MD Attending Physician: Alondra Retana MD Allergies Allergy/AdvReac Type Severity Reaction Status Date / Time No Known Allergies Allergy Verified 10/21/24 16:55 Home Medications Medication Instructions Recorded Confirmed Type cholecalciferol (vitamin D3) 25 2,000 units PO QAM 08/23/19 10/21/24 History mcg (1,000 unit) tablet aspirin 81 mg tablet,delayed 81 mg PO QAM 12/17/19 10/21/24 History release Wheeled Walker #1 ea 07/01/23 10/21/24 Rx acetaminophen 500 mg tablet 500 mg PO Q6H PRN Pain 10/20/23 10/21/24 History (Tylenol Extra Strength) gabapentin 300 mg capsule 300 mg PO BID PRN pain #60 caps 01/14/24 10/21/24 Rx ipratropium 0.5 mg-albuterol 3 mg 3 ml NEB QID PRN Shortness Of 02/03/24 10/21/24 History (2.5 mg base)/3 mL nebulization Breath Or Wheezing soln fluticasone furoate 100 1 inh inhalation DAILY #30 ea 02/07/24 10/21/24 Rx mcg/actuation blister powder for inhalation (Arnuity Ellipta) tamsulosin 0.4 mg capsule 0.4 mg PO QAM #90 caps 03/20/24 10/21/24 Rx furosemide 20 mg tablet See Rx Instructions .Route .COMPLEX 04/12/24 10/21/24 History Portable Oxygen #1 ea 05/08/24 10/21/24 Rx Patient History Medical History Pleural effusion Acute kidney injury Acute hypoxemic respiratory failure Hypertension Sensorineural hearing loss (SNHL) of both ears Cor pulmonale Pulmonary hypertension Pulmonary nodule RLL Chronic kidney disease History of shingles takes gabapentin for pain Hyperthyroidism Emphysema/COPD Lymphoma (~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 Surgical History History of nasal surgery (~2014) due to CA Hx of esophagogastroduodenoscopy Hx of colonoscopy H/O varicose vein ligation Family History Father , Age 91 Renal failure Mother Breast cancer Denies family history of Ovarian cancer Prostate cancer Myocardial infarction Colorectal cancer Social History Smoking Status: Former smoker Tobacco Type: Cigarettes Age Started Using Tobacco: 18; Age Quit Using Tobacco: 61; Cigarettes Per Day: 1 PPD; Second Hand Exposure: No; Do You Dip or Chew Tobacco: No; Hx Alcohol Use: No Hx Substance Use: No Preferred Language: Swedish Communication Ability: Effective Visual Impairment: No Limitations Hearing Ability: Hard of Hearing Law Firm Partner Required: No Beliefs That Will Affect Care: None marital status: Current Living Situation: Spouse current occupational status: retired How many Children do You have: 1 Feels Safe at Home: Yes Childhood Exposure to Second-Hand Smoke: No Diet: regular caffeine: Yes Dental Care, Regularly: No Physical Activity Frequency: Does not Exercise Seatbelt Use: always Sunscreen Use: No Do you think of yourself as: straight/heterosexual Gender Identity: Male Assistive Devices: Hospital Bed, Oxygen - at Night, Walker, Wheelchair and Other Review of Systems Review of Systems: Constitutionalno fever or chills ENTno blurred vision, no double vision, no epistaxis, no sore throat Respiratoryproductive cough. Dyspnea on exertion. Cardiacno palpitations, no chest pain, no syncope Huy nausea, vomiting, diarrhea, melena, hematochezia GUno urinary retention, no urinary incontinence, no dysuria, no hematuria. Complains of discomfort from larsen catheter Musculoskeletalno joint pain, no muscle tenderness Skinno bruising, no rashes, no pruritus Neurono focal weakness, no paresthesia, generalized weakness Psychno depression, no anxiety Physical Exam Physical Exam: General-alert and oriented x3, no fever HEENT-head atraumatic and normocephalic, pupils equal and reactive to light, extraocular muscles intact Neck-no lymphadenopathy or thyromegaly, trachea midline Chest-scattered bilateral rhonchi. Faint bibasilar inspiratory rales. No wheezing Cardiac-regular rate and rhythm, normal S1 and S2 Abdomen-normal bowel sounds, no hepatosplenomegaly Extremities-no cyanosis, clubbing, or edema Neuro-cranial nerves II through XII intact, motor and sensory function within normal limits, strength symmetrical, no focal deficits Psych-normal affect, normal mood Results & Data Vital Signs (Past 12 Hours) Vital Signs Temp Pulse Pulse Resp BP Pulse Ox O2 Del Method 10/23/24 11:09 36.4 C L 68 18 121/63 97 Nasal Cannula 10/23/24 08:15 Nasal Cannula 10/23/24 07:24 36.7 C 78 19 154/84 H 99 Nasal Cannula 10/23/24 05:50 57 L 10/23/24 03:07 36.8 C 81 16 144/72 H 94 Nasal Cannula O2 Flow Rate 10/23/24 11:09 4 10/23/24 08:15 3 10/23/24 07:24 4 10/23/24 05:50 10/23/24 03:07 Laboratory Results Abnormal lab results 10/23/24 Range/Units 06:35 WBC 15.61 H (4.8-10.8) K/ul RBC 4.03 L (4.70-6.10) M/uL Hgb 11.3 L (14.0-18.0) g/dl Hct 34.0 L (42.0-52.0) % Neut # (Auto) 14.04 H (1.40-6.50) K/uL Lymph # (Auto) 0.60 L (1.20-3.40) K/uL [place] # (Auto) 0.87 H (0.11-0.59) K/uL BUN 37 H (6-23) mg/dl BUN/Creatinine Ratio 28.0 H (10-20) Glucose 122 H (70-99(Fasting)) mg/dl Calcium 8.3 L (8.6-10.3) mg/dl AST 128 H (13-39) U/L ALT 82 H (7-52) U/L Total Creatine Kinase 2522 H (30-223) U/L Total Protein 5.4 L (6.0-8.3) gm/dl Albumin 3.1 L (3.4-5.0) gm/dl Diagnostic Findings Chest X-Ray 10/21/24 15:21 EXAM: Radiograph of the Chest 1 View INDICATION: Lung cancer. TECHNIQUE: Frontal view of the chest. COMPARISON: 04/20/2024 FINDINGS: Lungs and pleural spaces: Slight improved right basilar infiltrate. Stable patchy infiltrate left base. Persistent but improved right basilar pleural effusion and trace left basilar pleural effusion. No pneumothorax noted. Heart: Stable cardiomegaly. Mediastinum: Normal contour. Bones/joints: No fracture, erosion or dislocation. Soft tissues: No abnormality noted. No radiopaque foreign body noted. Vasculature: Stable ectatic calcified aorta. Upper abdomen: No abnormality noted. IMPRESSION: Slight improved right basilar aeration and right pleural effusion. Otherwise unchanged. ACT 112: Negative or not required by law. Electronically signed by Taylor Bedolla 10-21-2024 3:47 PM Hip/Pelvis X-Ray 10/21/24 16:16 EXAM: Radiographs of the Left Hip 3 Views INDICATION: Fell out of bed. TECHNIQUE: Front view pelvis and AP and frog leg lateral views of the left hip. COMPARISON: No relevant prior studies available. FINDINGS: Limitations: None. Bones/joints: Mild degenerative changes in the visualized lower lumbar segments. Soft tissues: No abnormality noted. No radiopaque foreign body noted. Vasculature: Atherosclerosis in the pelvis and proximal thighs. IMPRESSION: No acute findings in the left hip. ACT 112: Negative or not required by law. Electronically signed by Taylor Bedolla 10-21-2024 5:07 PM Sacrum and Coccyx X-Ray 10/21/24 16:16 EXAM: Radiographs of the Sacrum and Coccyx 3 Views INDICATION: Fell out of bed. TECHNIQUE: Frontal and lateral views of the sacrum and coccyx. COMPARISON: No relevant prior studies available. FINDINGS: Sacrum/coccyx: There is mild degenerative change in the lower lumbar segments. Arcuate lines of the sacrum are intact. Symmetrical sacroiliac sclerosis. No erosion. No acute fracture. Vertebrae: Visualized lumbar vertebrae are unremarkable. Soft tissues: No abnormality noted. No radiopaque foreign body noted. Vasculature: Moderate atherosclerotic calcifications noted diffusely. IMPRESSION: No acute findings in the sacrum or coccyx. ACT 112: Negative or not required by law. Electronically signed by Taylor Bedolla 10-21-2024 5:08 PM Abdomen/Pelvis CT 10/21/24 17:36 INDICATION: Sepsis. History of lung cancer. Right upper quadrant pain. COMPARISON: CT chest from 04/12/2024. TECHNIQUE: Axial CT images of the chest, abdomen and pelvis were obtained following IV contrast administration. Coronal and sagittal reformations were reviewed. FINDINGS: Chest: Negative for pulmonary embolism. The ascending thoracic aorta measures up to 4 cm maximum diameter. Negative for aortic dissection. The heart is mildly enlarged.. Small volume right pleural effusion, improved from prior. No pneumothorax. Enlarged mediastinal lymph nodes measuring up to 1.9 cm, unchanged from prior. Right upper lobe spiculated nodule measuring 0.5 cm, uncertain if present on prior CT no large pleural effusion present. Emphysema. Right middle and right lower lobe infiltrates. Area of round atelectasis in the left lower lobe with subsegmental atelectasis dependently in the left lower lobe. Bilateral calcified pleural pleural plaquing again noted. Degenerative changes in the spine and shoulders. No acute fracture. Abdomen and pelvis: Gallbladder distention. The liver, spleen, pancreas and adrenal glands appear unremarkable. No hydronephrosis. Bilateral renal cysts measuring up to 4.1 cm on the left and 3.6 cm on the right. Nonobstructing 5 mm left renal calculus. Right inguinal hernia containing fat and bowel loops. Left inguinal hernia containing fat and small amount of fluid.Mild amount of retained colonic stool. No evidence of bowel obstruction/colitis/appendicitis. No free air. No drainable fluid collection. Atheromatous plaquing of the abdominal aorta without dissection or aneurysm. Mild amount of retained colonic stool. The urinary bladder is mildly distended. Moderate prostate gland enlargement. Degenerative changes in the hips and spine. No acute osseous abnormality evident. IMPRESSION: 1. Findings concerning for right middle and right lower lobe pneumonia. 2. Mediastinal adenopathy, unchanged from prior. 3. Right upper lobe spiculated nodule measuring 0.5 cm, uncertain if present on prior CT no large pleural effusion present. Follow-up advised. 4. Small right pleural effusion, improved from prior. 5. Right inguinal hernia containing fat and bowel loops. No evidence of bowel obstruction. 6. Mild amount of retained colonic stool. 6. Gallbladder distention. 7. Bilateral renal cysts. 8. Moderate prostate gland enlargement. ACT 112: Positive. There are findings on this exam that require communication between the performing entity and the patient following Patient Test Result Information Act ([place] ACT 112) guidelines. Electronically signed by Cresencio Solis 10-21-2024 6:[address] 10/21/24 17:36 INDICATION: Sepsis. History of lung cancer. Right upper quadrant pain. COMPARISON: CT chest from 04/12/2024. TECHNIQUE: Axial CT images of the chest, abdomen and pelvis were obtained following IV contrast administration. Coronal and sagittal reformations were reviewed. FINDINGS: Chest: Negative for pulmonary embolism. The ascending thoracic aorta measures up to 4 cm maximum diameter. Negative for aortic dissection. The heart is mildly enlarged.. Small volume right pleural effusion, improved from prior. No pneumothorax. Enlarged mediastinal lymph nodes measuring up to 1.9 cm, unchanged from prior. Right upper lobe spiculated nodule measuring 0.5 cm, uncertain if present on prior CT no large pleural effusion present. Emphysema. Right middle and right lower lobe infiltrates. Area of round atelectasis in the left lower lobe with subsegmental atelectasis dependently in the left lower lobe. Bilateral calcified pleural pleural plaquing again noted. Degenerative changes in the spine and shoulders. No acute fracture. Abdomen and pelvis: Gallbladder distention. The liver, spleen, pancreas and adrenal glands appear unremarkable. No hydronephrosis. Bilateral renal cysts measuring up to 4.1 cm on the left and 3.6 cm on the right. Nonobstructing 5 mm left renal calculus. Right inguinal hernia containing fat and bowel loops. Left inguinal hernia containing fat and small amount of fluid.Mild amount of retained colonic stool. No evidence of bowel obstruction/colitis/appendicitis. No free air. No drainable fluid collection. Atheromatous plaquing of the abdominal aorta without dissection or aneurysm. Mild amount of retained colonic stool. The urinary bladder is mildly distended. Moderate prostate gland enlargement. Degenerative changes in the hips and spine. No acute osseous abnormality evident. IMPRESSION: 1. Findings concerning for right middle and right lower lobe pneumonia. 2. Mediastinal adenopathy, unchanged from prior. 3. Right upper lobe spiculated nodule measuring 0.5 cm, uncertain if present on prior CT no large pleural effusion present. Follow-up advised. 4. Small right pleural effusion, improved from prior. 5. Right inguinal hernia containing fat and bowel loops. No evidence of bowel obstruction. 6. Mild amount of retained colonic stool. 6. Gallbladder distention. 7. Bilateral renal cysts. 8. Moderate prostate gland enlargement. ACT 112: Positive. There are findings on this exam that require communication between the performing entity and the patient following Patient Test Result Information Act ([place] ACT 112) guidelines. Electronically signed by Cresencio Solis 10-21-2024 6:50 PM Medications Administered Current Inpatient Medications Albuterol (Albut/Ipratrop 3mg/0.5mg Neb 3 Ml Vial) 3 ml NEB Q6R PRN; Protocol PRN Reason: SOB, cough, wheeze Stop: 11/20/24 19:46 Aspirin (Aspirin 81 Mg Ectab) 81 mg PO QAM [facility] Stop: 11/21/24 08:59 Last Admin: 10/23/24 08:35 Dose: 81 mg Fluticasone Furoate (Fluticasone Furoate 100mcg 14 Puffs/Inhaler) 1 puffs INH DAILY TONI Stop: 11/21/24 08:59 Last Admin: 10/23/24 08:34 Dose: 1 puffs Heparin Sodium (Porcine) (Heparin Sod 5,000 Unit/0.5 Ml Vial) 5,000 units SQ Q12 TONI Stop: 11/21/24 08:59 Last Admin: 10/23/24 08:35 Dose: 5,000 units Piperacillin Sod/Tazobactam Sod (Zosyn) 4.5 gm in 100 mls @ 25 mls/hr IV Q8H TONI; Protocol Stop: 10/27/24 15:59 Last Infusion: 10/23/24 13:13 Dose: Infused Tamsulosin HCl (Tamsulosin Hcl 0.4 Mg Cap) 0.4 mg PO QAM TONI Stop: 11/21/24 08:59 Last Admin: 10/23/24 08:35 Dose: 0.4 mg PG Care Time/CCT Total # of Minutes Spent Total Time Spent with Patient: Total time spent is greater than 50% in coordination of care (as documented) at patient's floor/unit and/or counseling patient: Advanced Care Planning 51018 Advanced Care Planning 30 [place] [address] IN/OBS CONSULT LVL 3,45M Patient Type New Medical Decision Making Moderate Complexity Diagnoses Falls frequently R29.6 Dyspnea and respiratory abnormalities R06.00; R06.89 Weakness generalized R53.1 Advanced care planning/counseling discussion Z71.89 Palliative care by specialist Z51.5 Additional Codes Advanced Care Planning - 60275 Advanced Care Planning 30 Min: 52554 Advanced Care Planning 30 Min ([id number])
--- NOTE | 2024-10-23 15:01 | Palliative Care Progress Note ---
Date of Service October 23, 2024 Assessment & Plan (1) Sepsis: (2) Acute diastolic CHF (congestive heart failure): Plan: Chest x-ray reveals bilateral effusions, CHF, fluid in the minor fissure. Management per primary: Parenteral Lasix therapy with Larsen catheter to monitor intake and output. Serial chest x-ray. (3) Acute respiratory failure with hypoxia: Plan: Supplemental oxygen per nasal cannula to maintain saturation greater than 90%. Wean off as tolerated. Treat underlying pneumonia and CHF. (4) Rhabdomyolysis: Plan: Found on floor. CK 14,163 U/L on admission. Serial labs. (5) Elevated transaminase level: Plan: Most likely due to passive hepatic congestion. Should improve with treatment of CHF. Will follow (6) Graves disease: Plan: Admission TSH level is low. Free T4 level however is normal. (7) Emphysema/COPD: Plan: Acute exacerbation due to pneumonia and CHF. Fortunately he has no active wheezing at this time. Nebulizer treatments ordered (8) Adenocarcinoma of lung, stage 3: Plan: No active treatment planned for this. Comfort care approach per prior pulmonology notes (9) Pneumonia: Plan: Currently on Zosyn, day 1. Sputum cultures pending. Plan To be determined Admission and Anticipated Discharge Date Admission Date: October 21, 2024 Subjective Pt assessed sitting up in chair. Alert and oriented and pleasantly communicative. No distress. Review of Systems Review of Systems: Constitutionalno fever or chills ENTno blurred vision, no double vision, no epistaxis, no sore throat Respiratoryproductive cough. Dyspnea on exertion. Cardiacno palpitations, no chest pain, no syncope Huy nausea, vomiting, diarrhea, melena, hematochezia GUno urinary retention, no urinary incontinence, no dysuria, no hematuria. Complains of discomfort from larsen catheter Musculoskeletalno joint pain, no muscle tenderness Skinno bruising, no rashes, no pruritus Neurono focal weakness, no paresthesia, generalized weakness Psychno depression, no anxiety Physical Exam Physical Exam: General-alert and oriented x3, no fever HEENT-head atraumatic and normocephalic, pupils equal and reactive to light, extraocular muscles intact Neck-no lymphadenopathy or thyromegaly, trachea midline Chest-scattered bilateral rhonchi. Faint bibasilar inspiratory rales. No wheezing Cardiac-regular rate and rhythm, normal S1 and S2 Abdomen-normal bowel sounds, no hepatosplenomegaly Extremities-no cyanosis, clubbing, or edema Neuro-cranial nerves II through XII intact, motor and sensory function within normal limits, strength symmetrical, no focal deficits Psych-normal affect, normal mood Results & Data Vital Signs (Past 12 Hours) Vital Signs Temp Pulse Pulse Resp BP Pulse Ox O2 Del Method 10/23/24 11:09 36.4 C L 68 18 121/63 97 Nasal Cannula 10/23/24 08:15 Nasal Cannula 10/23/24 07:24 36.7 C 78 19 154/84 H 99 Nasal Cannula 10/23/24 05:50 57 L 10/23/24 03:07 36.8 C 81 16 144/72 H 94 Nasal Cannula O2 Flow Rate 10/23/24 11:09 4 10/23/24 08:15 3 10/23/24 07:24 4 10/23/24 05:50 10/23/24 03:07 Laboratory Results Abnormal lab results 10/23/24 Range/Units 06:35 WBC 15.61 H (4.8-10.8) K/ul RBC 4.03 L (4.70-6.10) M/uL Hgb 11.3 L (14.0-18.0) g/dl Hct 34.0 L (42.0-52.0) % Neut # (Auto) 14.04 H (1.40-6.50) K/uL Lymph # (Auto) 0.60 L (1.20-3.40) K/uL Will # (Auto) 0.87 H (0.11-0.59) K/uL BUN 37 H (6-23) mg/dl BUN/Creatinine Ratio 28.0 H (10-20) Glucose 122 H (70-99(Fasting)) mg/dl Calcium 8.3 L (8.6-10.3) mg/dl AST 128 H (13-39) U/L ALT 82 H (7-52) U/L Total Creatine Kinase 2522 H (30-223) U/L Total Protein 5.4 L (6.0-8.3) gm/dl Albumin 3.1 L (3.4-5.0) gm/dl Diagnostic Findings Chest X-Ray 10/21/24 15:21 EXAM: Radiograph of the Chest 1 View INDICATION: Lung cancer. TECHNIQUE: Frontal view of the chest. COMPARISON: 04/20/2024 FINDINGS: Lungs and pleural spaces: Slight improved right basilar infiltrate. Stable patchy infiltrate left base. Persistent but improved right basilar pleural effusion and trace left basilar pleural effusion. No pneumothorax noted. Heart: Stable cardiomegaly. Mediastinum: Normal contour. Bones/joints: No fracture, erosion or dislocation. Soft tissues: No abnormality noted. No radiopaque foreign body noted. Vasculature: Stable ectatic calcified aorta. Upper abdomen: No abnormality noted. IMPRESSION: Slight improved right basilar aeration and right pleural effusion. Otherwise unchanged. ACT 112: Negative or not required by law. Electronically signed by Taylor Bedolla 10-21-2024 3:47 PM Hip/Pelvis X-Ray 10/21/24 16:16 EXAM: Radiographs of the Left Hip 3 Views INDICATION: Fell out of bed. TECHNIQUE: Front view pelvis and AP and frog leg lateral views of the left hip. COMPARISON: No relevant prior studies available. FINDINGS: Limitations: None. Bones/joints: Mild degenerative changes in the visualized lower lumbar segments. Soft tissues: No abnormality noted. No radiopaque foreign body noted. Vasculature: Atherosclerosis in the pelvis and proximal thighs. IMPRESSION: No acute findings in the left hip. ACT 112: Negative or not required by law. Electronically signed by Taylor Bedolla 10-21-2024 5:07 PM Sacrum and Coccyx X-Ray 10/21/24 16:16 EXAM: Radiographs of the Sacrum and Coccyx 3 Views INDICATION: Fell out of bed. TECHNIQUE: Frontal and lateral views of the sacrum and coccyx. COMPARISON: No relevant prior studies available. FINDINGS: Sacrum/coccyx: There is mild degenerative change in the lower lumbar segments. Arcuate lines of the sacrum are intact. Symmetrical sacroiliac sclerosis. No erosion. No acute fracture. Vertebrae: Visualized lumbar vertebrae are unremarkable. Soft tissues: No abnormality noted. No radiopaque foreign body noted. Vasculature: Moderate atherosclerotic calcifications noted diffusely. IMPRESSION: No acute findings in the sacrum or coccyx. ACT 112: Negative or not required by law. Electronically signed by Taylor Bedolla 10-21-2024 5:08 PM Abdomen/Pelvis CT 10/21/24 17:36 INDICATION: Sepsis. History of lung cancer. Right upper quadrant pain. COMPARISON: CT chest from 04/12/2024. TECHNIQUE: Axial CT images of the chest, abdomen and pelvis were obtained following IV contrast administration. Coronal and sagittal reformations were reviewed. FINDINGS: Chest: Negative for pulmonary embolism. The ascending thoracic aorta measures up to 4 cm maximum diameter. Negative for aortic dissection. The heart is mildly enlarged.. Small volume right pleural effusion, improved from prior. No pneumothorax. Enlarged mediastinal lymph nodes measuring up to 1.9 cm, unchanged from prior. Right upper lobe spiculated nodule measuring 0.5 cm, uncertain if present on prior CT no large pleural effusion present. Emphysema. Right middle and right lower lobe infiltrates. Area of round atelectasis in the left lower lobe with subsegmental atelectasis dependently in the left lower lobe. Bilateral calcified pleural pleural plaquing again noted. Degenerative changes in the spine and shoulders. No acute fracture. Abdomen and pelvis: Gallbladder distention. The liver, spleen, pancreas and adrenal glands appear unremarkable. No hydronephrosis. Bilateral renal cysts measuring up to 4.1 cm on the left and 3.6 cm on the right. Nonobstructing 5 mm left renal calculus. Right inguinal hernia containing fat and bowel loops. Left inguinal hernia containing fat and small amount of fluid.Mild amount of retained colonic stool. No evidence of bowel obstruction/colitis/appendicitis. No free air. No drainable fluid collection. Atheromatous plaquing of the abdominal aorta without dissection or aneurysm. Mild amount of retained colonic stool. The urinary bladder is mildly distended. Moderate prostate gland enlargement. Degenerative changes in the hips and spine. No acute osseous abnormality evident. IMPRESSION: 1. Findings concerning for right middle and right lower lobe pneumonia. 2. Mediastinal adenopathy, unchanged from prior. 3. Right upper lobe spiculated nodule measuring 0.5 cm, uncertain if present on prior CT no large pleural effusion present. Follow-up advised. 4. Small right pleural effusion, improved from prior. 5. Right inguinal hernia containing fat and bowel loops. No evidence of bowel obstruction. 6. Mild amount of retained colonic stool. 6. Gallbladder distention. 7. Bilateral renal cysts. 8. Moderate prostate gland enlargement. ACT 112: Positive. There are findings on this exam that require communication between the performing entity and the patient following Patient Test Result Information Act ([place] ACT 112) guidelines. Electronically signed by Cresencio Solis 10-21-2024 6:[address] 10/21/24 17:36 INDICATION: Sepsis. History of lung cancer. Right upper quadrant pain. COMPARISON: CT chest from 04/12/2024. TECHNIQUE: Axial CT images of the chest, abdomen and pelvis were obtained following IV contrast administration. Coronal and sagittal reformations were reviewed. FINDINGS: Chest: Negative for pulmonary embolism. The ascending thoracic aorta measures up to 4 cm maximum diameter. Negative for aortic dissection. The heart is mildly enlarged.. Small volume right pleural effusion, improved from prior. No pneumothorax. Enlarged mediastinal lymph nodes measuring up to 1.9 cm, unchanged from prior. Right upper lobe spiculated nodule measuring 0.5 cm, uncertain if present on prior CT no large pleural effusion present. Emphysema. Right middle and right lower lobe infiltrates. Area of round atelectasis in the left lower lobe with subsegmental atelectasis dependently in the left lower lobe. Bilateral calcified pleural pleural plaquing again noted. Degenerative changes in the spine and shoulders. No acute fracture. Abdomen and pelvis: Gallbladder distention. The liver, spleen, pancreas and adrenal glands appear unremarkable. No hydronephrosis. Bilateral renal cysts measuring up to 4.1 cm on the left and 3.6 cm on the right. Nonobstructing 5 mm left renal calculus. Right inguinal hernia containing fat and bowel loops. Left inguinal hernia containing fat and small amount of fluid.Mild amount of retained colonic stool. No evidence of bowel obstruction/colitis/appendicitis. No free air. No drainable fluid collection. Atheromatous plaquing of the abdominal aorta without dissection or aneurysm. Mild amount of retained colonic stool. The urinary bladder is mildly distended. Moderate prostate gland enlargement. Degenerative changes in the hips and spine. No acute osseous abnormality evident. IMPRESSION: 1. Findings concerning for right middle and right lower lobe pneumonia. 2. Mediastinal adenopathy, unchanged from prior. 3. Right upper lobe spiculated nodule measuring 0.5 cm, uncertain if present on prior CT no large pleural effusion present. Follow-up advised. 4. Small right pleural effusion, improved from prior. 5. Right inguinal hernia containing fat and bowel loops. No evidence of bowel obstruction. 6. Mild amount of retained colonic stool. 6. Gallbladder distention. 7. Bilateral renal cysts. 8. Moderate prostate gland enlargement. ACT 112: Positive. There are findings on this exam that require communication between the performing entity and the patient following Patient Test Result Information Act ([place] ACT 112) guidelines. Electronically signed by Cresencio Solis 10-21-2024 6:50 PM Medications Administered Current Inpatient Medications Albuterol (Albut/Ipratrop 3mg/0.5mg Neb 3 Ml Vial) 3 ml NEB Q6R PRN; Protocol PRN Reason: SOB, cough, wheeze Stop: 11/20/24 19:46 Aspirin (Aspirin 81 Mg Ectab) 81 mg PO QAM [facility] Stop: 11/21/24 08:59 Last Admin: 10/23/24 08:35 Dose: 81 mg Fluticasone Furoate (Fluticasone Furoate 100mcg 14 Puffs/Inhaler) 1 puffs INH DAILY [facility] Stop: 11/21/24 08:59 Last Admin: 10/23/24 08:34 Dose: 1 puffs Heparin Sodium (Porcine) (Heparin Sod 5,000 Unit/0.5 Ml Vial) 5,000 units SQ Q12 [facility] Stop: 11/21/24 08:59 Last Admin: 10/23/24 08:35 Dose: 5,000 units Piperacillin Sod/Tazobactam Sod (Zosyn) 4.5 gm in 100 mls @ 25 mls/hr IV Q8H [facility]; Protocol Stop: 10/27/24 15:59 Last Infusion: 10/23/24 13:13 Dose: Infused Tamsulosin HCl (Tamsulosin Hcl 0.4 Mg Cap) 0.4 mg PO QAM [facility] Stop: 11/21/24 08:59 Last Admin: 10/23/24 08:35 Dose: 0.4 mg PG Care Time/CCT Total # of Minutes Spent Total Time Spent with Patient: Total time spent is greater than 50% in coordination of care (as documented) at patient's floor/unit and/or counseling patient: Coding Diagnoses Sepsis A41.9 Acute diastolic CHF (congestive heart failure) I50.31 Acute respiratory failure with hypoxia J96.01 Rhabdomyolysis M62.82 Elevated transaminase level R74.01 Graves disease E05.00 Emphysema/COPD J43.9 Adenocarcinoma of lung, stage 3 C34.90 Pneumonia J18.9
--- NOTE | 2024-10-23 18:26 | Hospitalist Progress Note ---
Date of Service October 23, 2024 Assessment & Plan (1) Sepsis: Plan: With sepsis, POA, with evidence of pneumonia seen on chest CT scan. Blood pressures normal and not requiring pressors [employer] respiratory panel negative Procalcitonin elevated Blood cultures remain no growth to date Sputum culture with Moraxella Continue Zosyn Improving Follow chest x-ray to resolution (2) Pneumonia: Plan: As above (3) Acute diastolic CHF (congestive heart failure): Plan: BNP greater than 1000. Chest x-ray reveals bilateral effusions, CHF, fluid in the minor fissure and with pneumonia. Echo with preserved EF, mild MR in 03/2024 Diuresed with parenteral Lasix therapy with Harvey catheter to monitor intake and output Hold further Lasix at this time Daily weights, strict I's and O's Continue daily aspirin Follow BMP (4) Acute respiratory failure with hypoxia: Plan: Secondary to heart failure and pneumonia-continue supplemental oxygen per nasal cannula to maintain saturation greater than 90%. Wean off as tolerated. Treat underlying pneumonia and CHF Add flutter valve (5) Rhabdomyolysis: Plan: Found on floor for many hours. CK 14,163 U/L on admission and now trending downward to 2522 after receiving some IV fluids initially but now on Lasix as above Follow CK, LFTs (6) Elevated transaminase level: Plan: Most likely due to rhabdomyolysis and improving Follow LFTs (7) Graves disease: Plan: Admission TSH level is low. Free T4 level however is normal. Follows with endocrinology Consider resuming home methimazole that has been on hold Follow-up TSH and free T4 as an outpatient (8) Emphysema/COPD: Plan: No steroids at this time due to ongoing bacterial infection Bronchodilators Continue supplemental O2 (9) Adenocarcinoma of lung, stage 3: Plan: No active treatment planned for this. Comfort care approach per prior pulmonology notes Apparently he was on hospice prior to admission but he is not being discharged from hospice as he I believe has outlived his prognosis Plan Chronic medical problems: BPH-continue tamsulosin, plan to remove Harvey catheter likely tomorrow CKD stage III-follows with nephrology, creatinine slight bump to 1.3, follow BMP DVT prophylaxis heparin SQ Disposition-continued stay in PCU, PT/OT recommending rehab Admission and Anticipated Discharge Date Admission Date: October 21, 2024 Subjective Patient reports feeling better, coughing up cream-colored sputum. Has pain in the left hip from his fall. Telemetry with normal sinus rhythm, PACs and PVCs, rates in the 50s to 70s Physical Exam Constitutional: WD/WN, vitals as above Respiratory: normal respiratory effort and + cough Auscultation: + rhonchi and + wheezes; no crackles Cardiovascular: RRR, no murmur, no edema Gastrointestinal (Abdomen): normal bowel sounds, soft, nontender, no hepatosplenomegaly Psychiatric: A+Ox3, euthymic affect Results & Data Results & Data Vital Signs (Past 12 Hours) Vital Signs Temp Pulse Pulse Resp BP Pulse Ox Pulse Ox 10/23/24 16:18 36.5 C 71 19 127/77 91 10/23/24 14:38 92 10/23/24 13:00 93 H 10/23/24 11:09 36.4 C L 68 18 121/63 97 10/23/24 08:15 10/23/24 07:24 36.7 C 78 19 154/84 H 99 Pulse Ox O2 Del Method O2 Flow Rate O2 Flow Rate O2 Flow Rate 10/23/24 16:18 Nasal Cannula 4 10/23/24 14:38 88 L 4 4 10/23/24 13:00 10/23/24 11:09 Nasal Cannula 4 10/23/24 08:15 Nasal Cannula 3 10/23/24 07:24 Nasal Cannula 4 Laboratory Results CBC, BMP, CK, LFTs, blood cultures, sputum culture reviewed PG Care Time/CCT Total # of Minutes Spent Total Time Spent with Patient: Total time spent is greater than 50% in coordination of care (as documented) at patient's floor/unit and/or counseling patient: Coding Level of Care Code 55862 SUB INP/OBS CARE 2/35MIN Diagnoses Sepsis A41.9 Pneumonia J18.9 Acute diastolic CHF (congestive heart failure) I50.31 Acute respiratory failure with hypoxia J96.01 Rhabdomyolysis M62.82 Elevated transaminase level R74.01 Graves disease E05.00 Emphysema/COPD J43.9 Adenocarcinoma of lung, stage 3 C34.90
[2024-10-24] MEDS: LIDOCAINE 5% 1 PATCH TD STA (03:17)
[2024-10-24 09:39] LABS: Albumin Level 3.3 gm/dl (3.4-5.0); BUN Creatinine Ratio 21.1 (10-20); Bilirubin Direct 0.1 mg/dl (0-0.2); Bilirubin,Total 0.6 mg/dl (0.2-1.0); Calcium 8.7 mg/dl (8.6-10.3); Creatinine Clr Calc Pharmacy 32.6 ml/min; Magnesium 1.9 mg/dl (1.7-2.4); Potassium 3.4 mmol/L (3.5-5.1); Total Protein 6.3 gm/dl (6.0-8.3)
[2024-10-24 09:41] LABS: Basophils # (auto) 0.03 K/uL (0.00-0.20); Basophils % (auto) 0.3 %; Eosinophils # (auto) 0.18 K/uL (0.00-0.50); Eosinophils % (auto) 1.6 %; Hematocrit (blood only) 42.5 % (42.0-52.0); Hemoglobin 13.7 g/dl (14.0-18.0); Immature Granulocytes # (auto) 0.04 K/uL (0.01-0.20); Immature Granulocytes % (auto) 0.4 %; Lymphocytes # (auto) 1.44 K/uL (1.20-3.40); Mean Corpuscular Hemoglobin 27.8 pg (25.0-34.0); Mean Corpuscular Hgb Conc 32.2 g/dL (32.0-36.0); Mean Corpuscular Volume 86.4 fL (80.0-100.0); Mean Platelet Volume 10.8 fL (9.4-12.4); Monocytes # (auto) 0.72 K/uL (0.11-0.59); Monocytes % (auto) 6.5 %; Neutrophils # (auto) 8.64 K/uL (1.40-6.50); Neutrophils % (auto) 78.2 %; Platelet Count 308 K/uL (130-400); RDW Coefficient of Variation 13.6 % (11.5-14.5); RDW Standard Deviation 43.1 fL (36.4-46.3); Red Blood Count 4.92 M/uL (4.70-6.10); White Blood Count 11.05 K/ul (4.8-10.8)
[2024-10-24] MEDS: POTASSIUM CHLORIDE CRTAB 20 MEQ TABCR PO STA (12:20)
--- NOTE | 2024-10-24 17:25 | Hospitalist Progress Note ---
Date of Service October 24, 2024 Assessment & Plan (1) Sepsis: Plan: With sepsis, POA, with evidence of pneumonia seen on chest CT scan. Blood pressures normal and not requiring pressors [employer] respiratory panel negative Procalcitonin elevated Blood cultures remain no growth to date Sputum culture with Moraxella Improving Change Zosyn to Augmentin to complete 7 day course Follow chest x-ray to resolution Follow CBC, CMP (2) Pneumonia: Plan: As above (3) Acute diastolic CHF (congestive heart failure): Plan: BNP greater than 1000. Chest x-ray reveals bilateral effusions, CHF, fluid in the minor fissure and with pneumonia. Echo with preserved EF, mild MR in 03/2024 Diuresed with parenteral Lasix therapy with Harvey catheter to monitor intake and output Holding further Lasix at this time and will use prn. Shaper Machine Hand bumped up slightly to 1.47 Daily weights, strict I's and O's Continue daily aspirin Follow BMP (4) Acute respiratory failure with hypoxia: Plan: Secondary to heart failure and pneumonia-continue supplemental oxygen per nasal cannula to maintain saturation greater than 90%. Wean off as tolerated. Treat underlying pneumonia and CHF Continue flutter valve Make nebs scheduled (5) Rhabdomyolysis: Plan: Found on floor for many hours. With pain in left shoulder and hip CK 14,163 U/L on admission and now trending downward daily to 1800 Follow CK, LFTs (6) Elevated transaminase level: Plan: Most likely due to rhabdomyolysis and improving/stable Follow LFTs (7) Graves disease: Plan: Admission TSH level is low. Free T4 level however is normal. Follows with endocrinology Consider resuming home methimazole that has been on hold Follow-up TSH and free T4 as an outpatient (8) Emphysema/COPD: Plan: No steroids at this time due to ongoing bacterial infection Bronchodilators-make scheduled Continue supplemental O2 and wean off as tolerated (9) Adenocarcinoma of lung, stage 3: Plan: No active treatment planned for this. Comfort care approach per prior pulmonology notes Apparently he was on hospice prior to admission but revoked hospice to come to the hospital Appreciate Palliative consult-pt has now decided he wants to go to rehab but then eventually back to home on hospice. He and his stepson now have a better understanding of what to do in the future if he were to be ill. They called 911 when he was found down because of concern for a broken hip He understands his prognosis with having lung cancer is not good and is now a DNR/DNI Plan Chronic medical problems: BPH-continue tamsulosin, plan to remove Harvey catheter likely tomorrow CKD stage III-follows with nephrology, creatinine slight bump to 1.4, follow BMP DVT prophylaxis heparin SQ Disposition-continued stay but downgrade to med/surg, PT/OT recommending rehab- awaiting insurance auth for [facility] rehab Admission and Anticipated Discharge Date Admission Date: October 21, 2024 Subjective Pt still coughing up sputum but much less than previous. Pain in left hip and shoulder is improved. He has not been out of bed today. Tele with NSR, PACs, PVCs, rates in the 70s Physical Exam Constitutional: WD/WN, vitals as above Respiratory: normal respiratory effort and + cough Auscultation: + rhonchi; no crackles and no wheezes Cardiovascular: RRR, no murmur, no edema Gastrointestinal (Abdomen): normal bowel sounds, soft, nontender, no hepatosplenomegaly Psychiatric: A+Ox3, euthymic affect Results & Data Results & Data Vital Signs (Past 12 Hours) Vital Signs Temp Pulse Pulse Resp BP Pulse Ox O2 Del Method 10/24/24 15:00 36.5 C 89 18 128/75 98 Nasal Cannula 10/24/24 13:10 80 10/24/24 12:00 36.7 C 77 20 138/77 96 Nasal Cannula 10/24/24 07:59 Nasal Cannula 10/24/24 07:00 36.6 C 87 18 121/70 99 Nasal Cannula 10/24/24 05:50 66 O2 Flow Rate 10/24/24 15:00 10/24/24 13:10 10/24/24 12:00 10/24/24 07:59 4 10/24/24 07:00 10/24/24 05:50 Laboratory Results CBC, CMP, CK reviewed Sputum and blood cxs reviewed PG Care Time/CCT Total # of Minutes Spent Total Time Spent with Patient: Total time spent is greater than 50% in coordination of care (as documented) at patient's floor/unit and/or counseling patient: Coding Level of Care Code 44255 SUB INP/OBS CARE 2/35MIN Diagnoses Sepsis A41.9 Pneumonia J18.9 Acute diastolic CHF (congestive heart failure) I50.31 Acute respiratory failure with hypoxia J96.01 Rhabdomyolysis M62.82 Elevated transaminase level R74.01 Graves disease E05.00 Emphysema/COPD J43.9 Adenocarcinoma of lung, stage 3 C34.90
[2024-10-24] MEDS: ALBUT/IPRATROP 3MG/0.5MG NEB 3 ML VIAL NEB SCH (18:02)
--- NOTE | 2024-10-24 19:35 | Palliative Family Discussion ---
Date of Service October 24, 2024 Patient Directed Conference Time of Meetin Participants: Melia Ortega [facility] Patient participation: patient, his son/HCOAJae (via phone) Patient Support System: spouse, son and daughter Other Healthcare Provider Participation: None Meeting Location: bedside Advanced Directive available: no If yes, descriptors: The patient's surrogate medical decision maker participated: yes Legally authorized health care proxy: Pt states he does have a PW/AD but not agreeable to presenting to hospital. Pt s but his is housebound with Alzheimer's Dementia. Pt verbalized that he trusts and would want his son Jae to serve as MDM proxy in event he lacks decisional capacity. Other surrogate: none A family meeting was held for KIERAN ETIENNE. This meeting was necessary for determining the appropriate course of treatment. Topics of Discussion Topics of Discussion: 1. pt values 2. goals of care 3. code status Other Content of Meetin. Opportunity given for participants to speak and ask questions. 2. Participants were assured of attention to patient comfort. 3. Reassurance provided. 4. Support was provided for informed, good-kim decisions. 5. Emotions expressed by family were acknowledged and addressed. 6. Follow-up Outpatient: TBD 7. Plan of Care: DNR/DNI, pt requests dc to IPR with hopes to optimize strength and function prior to returning home for ongoing hospice care Met with patient at bedside, son participated by phone. Jae shared that the pt had been doing "pretty well" at home on hospice until he fell. Jae called EMS because pt had worsening hip pain after fall. Jae shared that Hospice is now disenrolling patient as they are planning for transfer to [facility] prior to returning home for ongoing hospice care. Jae expressed concern that, in his current state, pt would not be safe at home. Jae shared that the ot has recently been chair bound at home but his wheelchair does not fit through his door frames so he needs to be strong enough to use a walker. Pt shared that he wants IPR because "I have to get stronger somehow". He shared that being home with his is of highest value to him. Gven pt's expressed desire to not ever be on life support machines, we discussed code status. Helped pt understand that resuscitation is only done after a patient dies, and often involves complications such as rib fractures, PTx, brain and other organ hypoxic injury which could lead to life long dependence on ventilator or dialysis. Pt stated "that sounds horrible, I would not want that at all". Jae agreed and shared that he was unaware code status had changed to full code for this admission. Both request DNR/DNI Status at this time. POLST form should be completed prior to discharge. Palliative care will continue to follow loosely, goals of care are well established. Time Involved in Meeting: I spent 60 minutes overall addressing this case: 10 in medical data review/discussion with referring provider(s) and/or preparation for the visit 40 in direct interaction with the patient 30 Advance Care Planning/Goals of Care discussions as detailed above in note (must be >16min) 10 in subsequent review and synthesis of assessment and plan
[2024-10-24] MEDS: AMOXICILLIN/CLAVULANATE 875 MG TAB PO SCH (20:34)
[2024-10-25] MEDS: CHOLECALCIFEROL 25 MCG (1000 UNITS) TAB PO SCH (08:01)
[2024-10-25 09:30] LABS: Basophils # (auto) 0.03 K/uL (0.00-0.20); Basophils % (auto) 0.3 %; Eosinophils # (auto) 0.26 K/uL (0.00-0.50); Hematocrit (blood only) 40.4 % (42.0-52.0); Hemoglobin 13.1 g/dl (14.0-18.0); Immature Granulocytes # (auto) 0.04 K/uL (0.01-0.20); Immature Granulocytes % (auto) 0.5 %; Lymphocytes # (auto) 0.91 K/uL (1.20-3.40); Lymphocytes % (auto) 10.4 %; Mean Corpuscular Hemoglobin 27.9 pg (25.0-34.0); Mean Corpuscular Hgb Conc 32.4 g/dL (32.0-36.0); Mean Platelet Volume 10.5 fL (9.4-12.4); Monocytes # (auto) 0.62 K/uL (0.11-0.59); Monocytes % (auto) 7.1 %; Neutrophils # (auto) 6.93 K/uL (1.40-6.50); Neutrophils % (auto) 78.7 %; Platelet Count 259 K/uL (130-400); RDW Coefficient of Variation 13.7 % (11.5-14.5); White Blood Count 8.79 K/ul (4.8-10.8)
[2024-10-25 09:52] LABS: Albumin Globulin Ratio 1.2 (0.9-2); Albumin Level 3.1 gm/dl (3.4-5.0); BUN Creatinine Ratio 21.2 (10-20); Bilirubin,Total 0.5 mg/dl (0.2-1.0); Calcium 8.6 mg/dl (8.6-10.3); Creatinine Clr Calc Pharmacy 42.3 ml/min; Globulin 2.6 gm/dl (2.5-4.0); Magnesium 1.9 mg/dl (1.7-2.4); Potassium 3.9 mmol/L (3.5-5.1); Total Protein 5.7 gm/dl (6.0-8.3)
[2024-10-25] MEDS: FUROSEMIDE 20 MG TAB PO ONE (15:08)
--- NOTE | 2024-10-25 19:05 | Hospitalist Progress Note ---
Date of Service October 25, 2024 Assessment & Plan (1) Sepsis: Plan: With sepsis, POA, with evidence of pneumonia seen on chest CT scan. Blood pressures normal and not requiring pressors BioFire respiratory panel negative Procalcitonin elevated Blood cultures remain no growth to date Sputum culture with Moraxella and Strep pneumo, pansensitive Improving Received Zosyn and then changed to Augmentin to complete 7 day course Follow chest x-ray to resolution Follow CBC, CMP (2) Pneumonia: Plan: As above (3) Acute diastolic CHF (congestive heart failure): Plan: BNP greater than 1000. Chest x-ray reveals bilateral effusions, CHF, fluid in the minor fissure and with pneumonia. 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 Wean off as tolerated. Treat underlying pneumonia and CHF Continue flutter valve Continue nebs scheduled (5) Rhabdomyolysis: Plan: Found on floor for many hours. With pain in left shoulder and hip CK 14,163 U/L on admission and now trending downward daily to 749 Follow CK, LFTs (6) Elevated transaminase level: Plan: Most likely due to rhabdomyolysis and continue to be improving daily Follow LFTs (7) Graves disease: Plan: Admission TSH level is low. Free T4 level however is normal. Follows with endocrinology Consider resuming home methimazole that has been on hold Follow-up TSH and free T4 as an outpatient (8) Emphysema/COPD: Plan: No steroids at this time due to ongoing bacterial infection Bronchodilators-scheduled Continue supplemental O2 and wean off as tolerated (9) Adenocarcinoma of lung, stage 3: Plan: No active treatment planned for this. Comfort care approach per prior pulmonology notes Apparently he was on hospice prior to admission but revoked hospice to come to the hospital Appreciate Palliative consult-pt has now decided he wants to go to rehab but then eventually back to home on hospice. He and his stepson now have a better understanding of what to do in the future if he were to be ill. They called 911 when he was found down because of concern for a broken hip He understands his prognosis with having lung cancer is not good and is now a DNR/DNI Plan Chronic medical problems: BPH-continue tamsulosin, awaiting trial of void now s/p removal of Harvey catheter CKD stage III-follows with nephrology, creatinine slight bump to 1.4 now improved, follow BMP DVT prophylaxis heparin SQ Disposition-medically stable for discharge but continued stay med/surg awaiting rehab placement-did a peer to peer which was denied for acute rehab--> awaiting SNF auth Admission and Anticipated Discharge Date Admission Date: October 21, 2024 Subjective Pt reports ongoing cough. He had Harvey removed this AM and still has not voided. Physical Exam Constitutional: WD/WN, vitals as above Respiratory: normal respiratory effort and + cough Auscultation: + rhonchi; no crackles and no wheezes Cardiovascular: RRR, no murmur, no edema Gastrointestinal (Abdomen): normal bowel sounds, soft, nontender, no hepatosplenomegaly Psychiatric: A+Ox3, euthymic affect Results & Data Results & Data Vital Signs (Past 12 Hours) Vital Signs Temp Pulse Resp BP Pulse Ox O2 Del Method O2 Flow Rate 10/25/24 15:45 36.7 C 122 H 18 120/69 98 Nasal Cannula 4 10/25/24 13:22 98 H 18 92 Nasal Cannula 4 10/25/24 08:09 36.7 C 93 H 16 124/73 93 Nasal Cannula 4 10/25/24 07:44 82 18 91 Nasal Cannula 4 10/25/24 07:20 Nasal Cannula 4 Laboratory Results CBC, CMP, CK reviewed PG Care Time/CCT Total # of Minutes Spent Total Time Spent with Patient: Total time spent is greater than 50% in coordination of care (as documented) at patient's floor/unit and/or counseling patient: Coding Level of Care Code 77667 SUB INP/OBS CARE 12/16MIN Diagnoses Sepsis A41.9 Pneumonia J18.9 Acute diastolic CHF (congestive heart failure) I50.31 Acute respiratory failure with hypoxia J96.01 Rhabdomyolysis M62.82 Elevated transaminase level R74.01 Graves disease E05.00 Emphysema/COPD J43.9 Adenocarcinoma of lung, stage 3 C34.90
[2024-10-25] MEDS: ACETAMINOPHEN 325 MG TAB PO PRN (22:10)
--- NOTE | 2024-10-26 11:32 | Communication Note ---
Date of Service: October 26, 2024 After discussion with Primary team ( Dr. Retana) it was determined that patient has no further palliative care needs. His goals are well established for c ontinuing life prolonging therapies and he has no symptom management needs at this time. Palliative care will sign off, please reconsult with any future palliative needs. Thank you for involving palliative care team in the care of this patient. Arin Ortega, [facility] Palliative Care Medicine Please call with any questions or concerns regarding this consultation.
--- NOTE | 2024-10-26 18:41 | Hospitalist Progress Note ---
Date of Service October 26, 2024 Assessment & Plan (1) Sepsis: Plan: With sepsis, POA, with evidence of pneumonia seen on chest CT scan. Blood pressures normal and not requiring pressors BioFire respiratory panel negative Procalcitonin elevated Blood cultures remain no growth to date Sputum culture with Moraxella and Strep pneumo, pansensitive Improving Received Zosyn and then changed to Augmentin to complete 7 day course on Follow chest x-ray to resolution in 4-6 weeks. Check CXR in AM Follow CBC, CMP (2) Pneumonia: Plan: As above (3) Acute diastolic CHF (congestive heart failure): Plan: BNP greater than 1000. Chest x-ray reveals bilateral effusions, CHF, fluid in the minor fissure and with pneumonia. 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 ECG showed ST with rates in 100s, and frequent PACs Could be secondary to bronchodilators, stress of acute infection Add metoprolol 12.5mg po bid no need to transfer to tele (5) Acute respiratory failure with hypoxia: Plan: Secondary to heart failure and pneumonia-continue supplemental oxygen per nasal cannula to maintain saturation greater than 90%. Wean off as tolerated. Treat underlying pneumonia and CHF Continue flutter valve Continue nebs scheduled (6) Rhabdomyolysis: Plan: Found on floor for many hours. With pain in left shoulder and hip CK 14,163 U/L on admission and now trending downward daily to 749 Follow CK, LFTs again in AM (7) Elevated transaminase level: Plan: Most likely due to rhabdomyolysis and continue to be improving daily Follow LFTs (8) Graves disease: Plan: Admission TSH level is low. Free T4 level however is normal. Follows with endocrinology Given tachycardia, frequent ectopy--> will resume methimazole 5mg daily Follow-up TSH and free T4 as an outpatient (9) Emphysema/COPD: Plan: No steroids at this time due to ongoing bacterial infection Bronchodilators-scheduled Continue supplemental O2 and wean off as tolerated (10) Adenocarcinoma of lung, stage 3: Plan: No active treatment planned for this. Comfort care approach per prior pulmonology notes Apparently he was on hospice prior to admission but revoked hospice to come to the hospital Appreciate Palliative consult-pt has now decided he wants to go to rehab but then eventually back to home on hospice. He and his stepson now have a better understanding of what to do in the future if he were to be ill. They called 911 when he was found down because of concern for a broken hip He understands his prognosis with having lung cancer is not good and is now a DNR/DNI Plan Chronic medical problems: BPH-continue tamsulosin, has passed trial of void now s/p removal of Harvey catheter CKD stage III-follows with nephrology, creatinine slight bump to 1.4 now improved, follow BMP DVT prophylaxis heparin SQ Disposition-medically stable for discharge but continued stay med/surg awaiting rehab placement-did a peer to peer which was denied for acute rehab--> awaiting SNF auth Admission and Anticipated Discharge Date Admission Date: October 21, 2024 Subjective Pt reports mild cough, not bringing up much sputum now. Denies SOB, CP. Noted to be tachycardic and with irregular rhythm on auscultation but ECG showed ST with frequent PACs Physical Exam Constitutional: WD/WN, vitals as above Respiratory: normal respiratory effort and + cough Auscultation: + rhonchi; no crackles and no wheezes Cardiovascular: Rate/Rhythm: + tachycardic and + irregularly irregular Extremities: no edema Gastrointestinal (Abdomen): normal bowel sounds, soft, nontender, no hepatosplenomegaly Psychiatric: A+Ox3, euthymic affect Results & Data Results & Data Vital Signs (Past 12 Hours) Vital Signs Temp Pulse Resp BP BP Pulse Ox O2 Del Method 10/26/24 15:30 36.8 C 98 H 18 113/49 L 96 Nasal Cannula 10/26/24 07:47 36.8 C 97 H 18 118/66 95 Nasal Cannula 10/26/24 07:24 72 16 96 Nasal Cannula 10/26/24 07:00 Nasal Cannula O2 Flow Rate 10/26/24 15:30 4 10/26/24 07:47 4 12/05/24 07:24 4 10/26/24 07:00 4 PG Care Time/CCT Total # of Minutes Spent Total Time Spent with Patient: Total time spent is greater than 50% in coordination of care (as documented) at patient's floor/unit and/or counseling patient: Coding Level of Care Code 86400 SUB INP/OBS CARE 2/35MIN Diagnoses Sepsis A41.9 Pneumonia J18.9 Acute diastolic CHF (congestive heart failure) I50.31 Tachycardia R00.0 Acute respiratory failure with hypoxia J96.01 Rhabdomyolysis M62.82 Elevated transaminase level R74.01 Graves disease E05.00 Emphysema/COPD J43.9 Adenocarcinoma of lung, stage 3 C34.90
[2024-10-26] MEDS: METOPROLOL TARTRATE 25 MG TAB PO SCH (19:43)
[2024-10-26] MEDS: DICLOFENAC SOD 1% GEL 100 GM TUBE EXT PRN (22:34)
--- NOTE | 2024-10-27 07:35 | XRay Report ---
EXAM: XR chest 1V portable CLINICAL HISTORY: FOLLOW UP KAA/BME TECHNIQUE: X-ray image of the chest is obtained in AP projection. COMPARISON: 10/21/2024. FINDINGS: Pulmonary Parenchyma: Multiple atelectatic bands were seen in both lungs [right middle and lower lobes, left suprahilar and infrahilar region/lower lobe]. No lung consolidation was seen. Mild bilateral pleural reaction in both costophrenic recesses ? small effusion. Heart and Mediastinum: The cardiac shadow is enlarged in size. No mediastinal masses. No hilar or mediastinal lymphadenopathy was seen. Bony Thorax: The bony thorax appears intact without fractures or deformities. Soft Tissues: Soft tissues overlying the chest wall are unremarkable. IMPRESSION: 1. Multiple bilateral atelectatic bands. 2. Small bilateral pleural reaction at both costophrenic recesses. Small effusion. Chest ultrasound may be done if clinically warranted. 3. Mild to moderate cardiomegaly. 4. Comparing the previous x-ray dated 10/21/2024, the findings remain stable. Electronically signed by Yara Gallego 10-27-2024 07:34 AM
[2024-10-27 07:42] LABS: Basophils # (auto) 0.04 K/uL (0.00-0.20); Basophils % (auto) 0.5 %; Eosinophils # (auto) 0.88 K/uL (0.00-0.50); Eosinophils % (auto) 10.8 %; Hematocrit (blood only) 34.9 % (42.0-52.0); Hemoglobin 11.4 g/dl (14.0-18.0); Immature Granulocytes # (auto) 0.06 K/uL (0.01-0.20); Immature Granulocytes % (auto) 0.7 %; Lymphocytes # (auto) 0.65 K/uL (1.20-3.40); Mean Corpuscular Hemoglobin 27.7 pg (25.0-34.0); Mean Corpuscular Hgb Conc 32.7 g/dL (32.0-36.0); Mean Corpuscular Volume 84.9 fL (80.0-100.0); Mean Platelet Volume 10.1 fL (9.4-12.4); Monocytes % (auto) 9.9 %; Neutrophils # (auto) 5.69 K/uL (1.40-6.50); Neutrophils % (auto) 70.1 %; Platelet Count 242 K/uL (130-400); RDW Coefficient of Variation 13.8 % (11.5-14.5); RDW Standard Deviation 42.8 fL (36.4-46.3); Red Blood Count 4.11 M/uL (4.70-6.10); White Blood Count 8.12 K/ul (4.8-10.8)
[2024-10-27] MEDS: methIMAzole 5 MG TABLET PO SCH (08:17)
[2024-10-27 10:04] LABS: Albumin Globulin Ratio 1.3 (0.9-2); Albumin Level 2.9 gm/dl (3.4-5.0); BUN Creatinine Ratio 21.2 (10-20); Bilirubin,Total 0.5 mg/dl (0.2-1.0); Calcium 8.4 mg/dl (8.6-10.3); Globulin 2.3 gm/dl (2.5-4.0); Magnesium 1.9 mg/dl (1.7-2.4); Potassium 3.9 mmol/L (3.5-5.1); Total Protein 5.2 gm/dl (6.0-8.3)
[2024-10-27] MEDS: POTASSIUM CHLORIDE 10 MEQ TABCR PO STA (10:59)
--- NOTE | 2024-10-27 11:36 | Electrocardiogram Report ---
Test Reason : Blood Pressure : */* mmHG Vent. Rate : 102 BPM Atrial Rate : 102 BPM P-R Int : 148 ms QRS Dur : 86 ms QT Int : 344 ms P-R-T Axes : 32 -37 -8 degrees QTcB Int : 448 ms Sinus tachycardia with Premature supraventricular complexes Left axis deviation Anterior infarct , age undetermined (cited on or before 21-Oct-2024) Abnormal ECG When compared with ECG of 21-Oct-2024 15:13, Non-specific change in ST segment in Anterior leads Confirmed by Hu West ([id number]) on 10/27/2024 11:35:30 AM Referred By: REFERRED SELF Confirmed By: Hu West
--- NOTE | 2024-10-27 15:48 | Hospitalist Progress Note ---
Date of Service October 27, 2024 Assessment & Plan (1) Sepsis: Plan: With sepsis, POA, with evidence of pneumonia seen on chest CT scan. Blood pressures normal on admit BioFire respiratory panel negative Procalcitonin elevated Blood cultures remain no growth to date Sputum culture with Moraxella and Strep pneumo, pansensitive Improved, is afebrile, no leukocytosis, cough almost resolved Received Zosyn and then changed to Augmentin to complete 7 day course on AM of 10/28 Repeat CXR 10/27 some improvement but has atelectasis-add ICS. Pt has been very stubborn about getting out of bed even to a chair-mostly stays in bed all day Follow chest x-ray to resolution in 4-6 weeks to ensure resolution (2) Pneumonia: Plan: As above (3) Acute diastolic CHF (congestive heart failure): Plan: BNP greater than 1000. Chest x-ray reveals bilateral effusions, CHF, pneumonia. Echo with preserved EF, mild MR in 03/2024 Diuresed with parenteral Lasix Held further IV Lasix due to Seconds Grader bump up slightly to 1.47---> pilot supervisor improved --> resumed lasix 20mg po every other day Daily weights, strict I's and O's Continue daily aspirin Follow BMP periodically (4) Tachycardia: Plan: On afternoon of 10/26, noted on exam to be tachycardic and irreg irreg. ECG showed ST with rates in 100s, and frequent PACs Could be secondary to bronchodilators, stress of acute infection Added metoprolol 12.5mg po bid and now much improved no need to transfer to [facility] (5) Acute respiratory failure with hypoxia: Plan: Secondary to heart failure and pneumonia-continue supplemental oxygen per nasal cannula to maintain saturation greater than 90%. Wean off as tolerated. Treat underlying pneumonia and CHF Continue flutter valve, adding ICS Continue nebs scheduled (6) Rhabdomyolysis: Plan: Found on floor for many hours. With pain in left shoulder and hip CK 14,163 U/L on admission and now normal (7) Elevated transaminase level: Plan: Most likely due to rhabdomyolysis and continue to be improving daily (8) Graves disease: Plan: Admission TSH level is low. Free T4 level however is normal. Follows with endocrinology Given tachycardia, frequent ectopy--> resumed methimazole 5mg daily (previous dose was 10mg daily) Follow-up TSH and free T4 as an outpatient (9) Emphysema/COPD: Plan: No steroids at this time due to ongoing bacterial infection Bronchodilators-scheduled Continue supplemental O2 and wean off as tolerated (10) Adenocarcinoma of lung, stage 3: Plan: No active treatment planned for this. Comfort care approach per prior pulmonology notes Apparently he was on hospice prior to admission but revoked hospice to come to the hospital Appreciate Palliative consult-pt has now decided he wants to go to rehab but then eventually back to home on hospice. He and his stepson now have a better understanding of what to do in the future if he were to be ill. They called 911 when he was found down because of concern for a broken hip He understands his prognosis with having lung cancer is not good and is now a DNR/DNI Plan Chronic medical problems: BPH-continue tamsulosin, has passed trial of void now s/p removal of Harvey catheter CKD stage III-follows with nephrology, creatinine slight bump to 1.4 now improved, follow BMP periodically DVT prophylaxis heparin SQ Disposition-medically stable for discharge but continued stay med/surg awaiting rehab placement-did a peer to peer which was denied for acute rehab--> awaiting SNF bed and insurance auth--> plan to have PT/OT reevaluate on Wednesday and resubmit for auth on Wednesday as [facility] has accepted him for Wednesday Admission and Anticipated Discharge Date Admission Date: October 21, 2024 Anticipated date of discharge: 10/30/24 Subjective Pt had some incontinence to stool today. Cough is almost gone. No complaints, no CP. Physical Exam Constitutional: WD/WN, vitals as above Respiratory: normal respiratory effort Auscultation: + rhonchi; no crackles and no wheezes Cardiovascular: RRR, no murmur, no edema (with occasional ectopy) Extremities: + edema Gastrointestinal (Abdomen): normal bowel sounds, soft, nontender, no hepatosplenomegaly Psychiatric: A+Ox3, euthymic affect Results & Data Results & Data Vital Signs (Past 12 Hours) Vital Signs Temp Pulse Pulse Resp BP Pulse Ox O2 Del Method 10/27/24 12:45 60 18 90 Nasal Cannula 10/27/24 11:13 36.6 C 76 16 110/74 94 Nasal Cannula 10/27/24 09:00 Nasal Cannula 10/27/24 08:01 36.6 C 84 16 115/72 95 Nasal Cannula 10/27/24 07:03 76 16 93 Nasal Cannula O2 Flow Rate 10/27/24 12:45 3 10/27/24 11:13 4 10/27/24 09:00 4 10/27/24 08:01 4 10/27/24 07:03 3 Laboratory Results CBC, BMP, LFTs, magnesium, CK reviewed PG Care Time/CCT Total # of Minutes Spent Total Time Spent with Patient: Total time spent is greater than 50% in coordination of care (as documented) at patient's floor/unit and/or counseling patient: Coding Level of Care Code 37872 SUB INP/OBS CARE 2/35MIN Diagnoses Sepsis A41.9 Pneumonia J18.9 Acute diastolic CHF (congestive heart failure) I50.31 Tachycardia R00.0 Acute respiratory failure with hypoxia J96.01 Rhabdomyolysis M62.82 Elevated transaminase level R74.01 Graves disease E05.00 Emphysema/COPD J43.9 Adenocarcinoma of lung, stage 3 C34.90
[2024-10-28] MEDS ORDERED: ALBUT/IPRATROP 3MG/0.5MG NEB 3 ML VIAL NEB PRN (11:19)
--- NOTE | 2024-10-28 18:55 | Hospitalist Progress Note ---
Date of Service October 28, 2024 Assessment & Plan (1) Sepsis: Plan: With sepsis, POA, with evidence of pneumonia seen on chest CT scan. Blood pressures normal on admit [employer] respiratory panel negative Procalcitonin elevated Blood cultures remain no growth to date Sputum culture with Moraxella and Strep pneumo, pansensitive Improved, is afebrile, no leukocytosis, cough almost resolved Received Zosyn and then changed to Augmentin to complete 7 day course on AM of 10/28 Repeat CXR 10/27 some improvement but has atelectasis-add ICS. Pt has been very stubborn about getting out of bed even to a chair-mostly stays in bed all day. Continue incentive spirometer. Capsule Filler patient at bedside Follow chest x-ray to resolution in 4-6 weeks to ensure resolution (2) Pneumonia: Plan: As above (3) Acute diastolic CHF (congestive heart failure): Plan: BNP greater than 1000. Chest x-ray reveals bilateral effusions, CHF, pneumonia. Echo with preserved EF, mild MR in 03/2024 Diuresed with parenteral Lasix Held further IV Lasix due to Buoy Tender bump up slightly to 1.47---> medical office coordinator improved --> resumed lasix 20mg po every other day Daily weights, strict I's and O's Continue daily aspirin Follow BMP periodically (4) Tachycardia: Plan: On afternoon of 10/26, noted on exam to be tachycardic and irreg irreg. ECG showed ST with rates in 100s, and frequent PACs Could be secondary to bronchodilators, stress of acute infection Added metoprolol 12.5mg po bid and now much improved no need to transfer to [facility] (5) Acute respiratory failure with hypoxia: Plan: Secondary to heart failure and pneumonia-continue supplemental oxygen per nasal cannula to maintain saturation greater than 90%. Wean off as tolerated. Treat underlying pneumonia and CHF Continue flutter valve, adding ICS Continue nebs scheduled (6) Rhabdomyolysis: Plan: Found on floor for many hours. With pain in left shoulder and hip CK 14,163 U/L on admission and now normal (7) Elevated transaminase level: Plan: Most likely due to rhabdomyolysis and continue to be improving daily (8) Graves disease: Plan: Admission TSH level is low. Free T4 level however is normal. Follows with endocrinology Given tachycardia, frequent ectopy--> resumed methimazole 5mg daily (previous dose was 10mg daily) Follow-up TSH and free T4 as an outpatient (9) Emphysema/COPD: Plan: No steroids at this time due to ongoing bacterial infection Bronchodilators-scheduled Continue supplemental O2 and wean off as tolerated (10) Adenocarcinoma of lung, stage 3: Plan: No active treatment planned for this. Comfort care approach per prior pulmonology notes Apparently he was on hospice prior to admission but revoked hospice to come to the hospital Appreciate Palliative consult-pt has now decided he wants to go to rehab but then eventually back to home on hospice. He and his stepson now have a better understanding of what to do in the future if he were to be ill. They called 911 when he was found down because of concern for a broken hip He understands his prognosis with having lung cancer is not good and is now a DNR/DNI Plan Chronic medical problems: BPH-continue tamsulosin, has passed trial of void now s/p removal of Harvey catheter CKD stage III-follows with nephrology, creatinine slight bump to 1.4 now improved, follow BMP periodically DVT prophylaxis heparin SQ Disposition-medically stable for discharge but continued stay med/surg awaiting rehab placement-did a peer to peer which was denied for acute rehab--> awaiting SNF bed and insurance auth--> plan to have PT/OT reevaluate on Wednesday and resubmit for auth on Wednesday as [facility] has accepted him for Wednesday Admission and Anticipated Discharge Date Admission Date: October 21, 2024 Supervising Physician Co-Signing Physician Notes chart reviewed, case d/w Usama Davis PAC - as above Subjective Attending: Dr. Abraham Patient is doing well. No acute shortness of breath. No cough. No sputum production. Patient denies fever. No acute complaints. Patient does report that he does have some imbalance issues. Strength seems to be appropriate. Patient is aware that he needs rehabilitation prior to returning home and [facility] and is awaiting placement. Review of Systems 2 Review of Systems: A total of 10 systems was reviewed and is negative other than as listed in the HPI Physical Exam 2 Physical Exam: GENERAL : No acute distress EYES: No icterus, gaze conjugate NOSE: No evidence of epistaxis MOUTH: No lesions or candidiasis NECK: Supple LUNGS: CTA B/L, no wheezes, rales or rhonchi HEART: Regular, rate controlled ABDOMEN: Soft, NT, ND, BS Present EXTREMITIES: No LE edema, pedal pulses intact NEURO: A&OX3 Results & Data Results & Data Vital Signs (Past 12 Hours) Vital Signs Temp Pulse Resp BP BP Pulse Ox O2 Del Method 10/28/24 15:21 36.6 C 66 16 130/70 96 Nasal Cannula 10/28/24 07:45 Nasal Cannula 10/28/24 07:30 74 18 96 Nasal Cannula 10/28/24 07:24 36.6 C 74 16 149/78 H 96 Nasal Cannula O2 Flow Rate 10/28/24 15:21 4 10/28/24 07:45 4 10/28/24 07:30 3 10/28/24 07:24 4 Laboratory Results 10/27/24 07:08 10/27/24 07:08 Diagnostic Findings Chest X-Ray 10/21/24 15:21 EXAM: Radiograph of the Chest 1 View INDICATION: Lung cancer. TECHNIQUE: Frontal view of the chest. COMPARISON: 04/20/2024 FINDINGS: Lungs and pleural spaces: Slight improved right basilar infiltrate. Stable patchy infiltrate left base. Persistent but improved right basilar pleural effusion and trace left basilar pleural effusion. No pneumothorax noted. Heart: Stable cardiomegaly. Mediastinum: Normal contour. Bones/joints: No fracture, erosion or dislocation. Soft tissues: No abnormality noted. No radiopaque foreign body noted. Vasculature: Stable ectatic calcified aorta. Upper abdomen: No abnormality noted. IMPRESSION: Slight improved right basilar aeration and right pleural effusion. Otherwise unchanged. ACT 112: Negative or not required by law. Electronically signed by Taylor Bedolla 10-21-2024 3:47 PM Hip/Pelvis X-Ray 10/21/24 16:16 EXAM: Radiographs of the Left Hip 3 Views INDICATION: Fell out of bed. TECHNIQUE: Front view pelvis and AP and frog leg lateral views of the left hip. COMPARISON: No relevant prior studies available. FINDINGS: Limitations: None. Bones/joints: Mild degenerative changes in the visualized lower lumbar segments. Soft tissues: No abnormality noted. No radiopaque foreign body noted. Vasculature: Atherosclerosis in the pelvis and proximal thighs. IMPRESSION: No acute findings in the left hip. ACT 112: Negative or not required by law. Electronically signed by Taylor Bedolla 10-21-2024 5:07 PM Sacrum and Coccyx X-Ray 10/21/24 16:16 EXAM: Radiographs of the Sacrum and Coccyx 3 Views INDICATION: Fell out of bed. TECHNIQUE: Frontal and lateral views of the sacrum and coccyx. COMPARISON: No relevant prior studies available. FINDINGS: Sacrum/coccyx: There is mild degenerative change in the lower lumbar segments. Arcuate lines of the sacrum are intact. Symmetrical sacroiliac sclerosis. No erosion. No acute fracture. Vertebrae: Visualized lumbar vertebrae are unremarkable. Soft tissues: No abnormality noted. No radiopaque foreign body noted. Vasculature: Moderate atherosclerotic calcifications noted diffusely. IMPRESSION: No acute findings in the sacrum or coccyx. ACT 112: Negative or not required by law. Electronically signed by Taylor Bedolla 10-21-2024 5:08 PM Abdomen/Pelvis CT 10/21/24 17:36 INDICATION: Sepsis. History of lung cancer. Right upper quadrant pain. COMPARISON: CT chest from 04/12/2024. TECHNIQUE: Axial CT images of the chest, abdomen and pelvis were obtained following IV contrast administration. Coronal and sagittal reformations were reviewed. FINDINGS: Chest: Negative for pulmonary embolism. The ascending thoracic aorta measures up to 4 cm maximum diameter. Negative for aortic dissection. The heart is mildly enlarged.. Small volume right pleural effusion, improved from prior. No pneumothorax. Enlarged mediastinal lymph nodes measuring up to 1.9 cm, unchanged from prior. Right upper lobe spiculated nodule measuring 0.5 cm, uncertain if present on prior CT no large pleural effusion present. Emphysema. Right middle and right lower lobe infiltrates. Area of round atelectasis in the left lower lobe with subsegmental atelectasis dependently in the left lower lobe. Bilateral calcified pleural pleural plaquing again noted. Degenerative changes in the spine and shoulders. No acute fracture. Abdomen and pelvis: Gallbladder distention. The liver, spleen, pancreas and adrenal glands appear unremarkable. No hydronephrosis. Bilateral renal cysts measuring up to 4.1 cm on the left and 3.6 cm on the right. Nonobstructing 5 mm left renal calculus. Right inguinal hernia containing fat and bowel loops. Left inguinal hernia containing fat and small amount of fluid.Mild amount of retained colonic stool. No evidence of bowel obstruction/colitis/appendicitis. No free air. No drainable fluid collection. Atheromatous plaquing of the abdominal aorta without dissection or aneurysm. Mild amount of retained colonic stool. The urinary bladder is mildly distended. Moderate prostate gland enlargement. Degenerative changes in the hips and spine. No acute osseous abnormality evident. IMPRESSION: 1. Findings concerning for right middle and right lower lobe pneumonia. 2. Mediastinal adenopathy, unchanged from prior. 3. Right upper lobe spiculated nodule measuring 0.5 cm, uncertain if present on prior CT no large pleural effusion present. Follow-up advised. 4. Small right pleural effusion, improved from prior. 5. Right inguinal hernia containing fat and bowel loops. No evidence of bowel obstruction. 6. Mild amount of retained colonic stool. 6. Gallbladder distention. 7. Bilateral renal cysts. 8. Moderate prostate gland enlargement. ACT 112: Positive. There are findings on this exam that require communication between the performing entity and the patient following Patient Test Result Information Act ([place] ACT 112) guidelines. Electronically signed by Cresencio Solis 10-21-2024 6:[address] 10/21/24 17:36 INDICATION: Sepsis. History of lung cancer. Right upper quadrant pain. COMPARISON: CT chest from 04/12/2024. TECHNIQUE: Axial CT images of the chest, abdomen and pelvis were obtained following IV contrast administration. Coronal and sagittal reformations were reviewed. FINDINGS: Chest: Negative for pulmonary embolism. The ascending thoracic aorta measures up to 4 cm maximum diameter. Negative for aortic dissection. The heart is mildly enlarged.. Small volume right pleural effusion, improved from prior. No pneumothorax. Enlarged mediastinal lymph nodes measuring up to 1.9 cm, unchanged from prior. Right upper lobe spiculated nodule measuring 0.5 cm, uncertain if present on prior CT no large pleural effusion present. Emphysema. Right middle and right lower lobe infiltrates. Area of round atelectasis in the left lower lobe with subsegmental atelectasis dependently in the left lower lobe. Bilateral calcified pleural pleural plaquing again noted. Degenerative changes in the spine and shoulders. No acute fracture. Abdomen and pelvis: Gallbladder distention. The liver, spleen, pancreas and adrenal glands appear unremarkable. No hydronephrosis. Bilateral renal cysts measuring up to 4.1 cm on the left and 3.6 cm on the right. Nonobstructing 5 mm left renal calculus. Right inguinal hernia containing fat and bowel loops. Left inguinal hernia containing fat and small amount of fluid.Mild amount of retained colonic stool. No evidence of bowel obstruction/colitis/appendicitis. No free air. No drainable fluid collection. Atheromatous plaquing of the abdominal aorta without dissection or aneurysm. Mild amount of retained colonic stool. The urinary bladder is mildly distended. Moderate prostate gland enlargement. Degenerative changes in the hips and spine. No acute osseous abnormality evident. IMPRESSION: 1. Findings concerning for right middle and right lower lobe pneumonia. 2. Mediastinal adenopathy, unchanged from prior. 3. Right upper lobe spiculated nodule measuring 0.5 cm, uncertain if present on prior CT no large pleural effusion present. Follow-up advised. 4. Small right pleural effusion, improved from prior. 5. Right inguinal hernia containing fat and bowel loops. No evidence of bowel obstruction. 6. Mild amount of retained colonic stool. 6. Gallbladder distention. 7. Bilateral renal cysts. 8. Moderate prostate gland enlargement. ACT 112: Positive. There are findings on this exam that require communication between the performing entity and the patient following Patient Test Result Information Act ([place] ACT 112) guidelines. Electronically signed by Cresencio Solis 10-21-2024 6:50 PM Chest X-Ray 10/27/24 07:00 EXAM: XR chest 1V portable CLINICAL HISTORY: FOLLOW UP KAA/BME TECHNIQUE: X-ray image of the chest is obtained in AP projection. COMPARISON: 10/21/2024. FINDINGS: Pulmonary Parenchyma: Multiple atelectatic bands were seen in both lungs [right middle and lower lobes, left suprahilar and infrahilar region/lower lobe]. No lung consolidation was seen. Mild bilateral pleural reaction in both costophrenic recesses ? small effusion. Heart and Mediastinum: The cardiac shadow is enlarged in size. No mediastinal masses. No hilar or mediastinal lymphadenopathy was seen. Bony Thorax: The bony thorax appears intact without fractures or deformities. Soft Tissues: Soft tissues overlying the chest wall are unremarkable. IMPRESSION: 1. Multiple bilateral atelectatic bands. 2. Small bilateral pleural reaction at both costophrenic recesses. Small effusion. Chest ultrasound may be done if clinically warranted. 3. Mild to moderate cardiomegaly. 4. Comparing the previous x-ray dated 10/21/2024, the findings remain stable. Electronically signed by Yara Gallego 10-27-2024 07:34 AM PG Care Time/CCT Total # of Minutes Spent Total Time Spent with Patient: Total time spent is greater than 50% in coordination of care (as documented) at patient's floor/unit and/or counseling patient: 20 minutes Coding Level of Care Code 19903 SUB INP/OBS CARE 12/16MIN Diagnoses Sepsis A41.9 Pneumonia J18.9 Acute diastolic CHF (congestive heart failure) I50.31 Tachycardia R00.0 Acute respiratory failure with hypoxia J96.01 Rhabdomyolysis M62.82 Elevated transaminase level R74.01 Graves disease E05.00 Emphysema/COPD J43.9 Adenocarcinoma of lung, stage 3 C34.90 Time Spent (min) 20
--- NOTE | 2024-10-29 18:02 | Hospitalist Progress Note ---
Date of Service October 29, 2024 Assessment & Plan (1) Sepsis: Plan: Resolved With sepsis, POA, with evidence of pneumonia seen on chest CT scan. Blood pressures normal on admit BioFire respiratory panel negative Procalcitonin elevated Blood cultures remain no growth to date Sputum culture with Moraxella and Strep pneumo, pansensitive Improved, is afebrile, no leukocytosis, cough almost resolved Received Zosyn and then changed to Augmentin to complete 7 day course on AM of 10/28 Repeat CXR 10/27 some improvement but has atelectasis-add ICS. Pt has been very stubborn about getting out of bed even to a chair-mostly stays in bed all day. Continue incentive spirometer. 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 Chest x-ray reveals bilateral effusions, CHF, pneumonia. 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 ECG showed ST with rates in 100s, and frequent PACs Could be secondary to bronchodilators, stress of acute infection Added metoprolol 12.5mg po bid and now much improved Heart rate has been stable in the 60s over the last 2 days (5) Acute respiratory failure with hypoxia: Plan: Secondary to heart failure and pneumonia- Continue supplemental oxygen per nasal cannula to maintain saturation greater than 90%. Wean off as tolerated. Treat underlying pneumonia and CHF Continue flutter valve, adding ICS Continue nebs scheduled (6) Rhabdomyolysis: Plan: Found on floor for many hours. With pain in left shoulder and hip CK 14,163 U/L on admission and now normal (7) Elevated transaminase level: Plan: Most likely due to rhabdomyolysis and improving Check LFTs with a.m. labs (8) Graves disease: Plan: Admission TSH level is low. Free T4 level however is normal. Follows with endocrinology Given tachycardia, frequent ectopy--> resumed methimazole 5mg daily (previous dose was 10mg daily) Follow-up TSH and free T4 as an outpatient (9) Emphysema/COPD: Plan: No steroids at this time due to ongoing bacterial infection Bronchodilators-scheduled Continue supplemental O2 and wean off as tolerated (10) Adenocarcinoma of lung, stage 3: Plan: No active treatment planned for this. Comfort care approach per prior pulmonology notes Apparently he was on hospice prior to admission but revoked hospice to come to the hospital Appreciate Palliative consult-pt has now decided he wants to go to rehab but then eventually back to home on hospice. He and his stepson now have a better understanding of what to do in the future if he were to be ill. They called 911 when he was found down because of concern for a broken hip He understands his prognosis with having lung cancer is not good and is now a DNR/DNI Continue supplemental oxygen as needed to maintain SpO2 between 88 and 92% Plan Chronic medical problems: BPH-continue tamsulosin, has passed trial of void now s/p removal of Harvey catheter CKD stage III-follows with nephrology, creatinine slight bump to 1.4 now improved, follow BMP periodically DVT prophylaxis heparin SQ Disposition-medically stable for discharge but continued stay med/surg awaiting rehab placement-did a peer to peer which was denied for acute rehab--> awaiting SNF bed and insurance auth--> plan to have PT/OT reevaluate on Wednesday and resubmit for auth on Wednesday as [facility] him for Wednesday Admission and Anticipated Discharge Date Admission Date: October 21, 2024 Supervising Physician Co-Signing Physician Notes chart reviewed, case d/w Usama Davis PAC - as above Subjective Attending: Dr. Abraham Reports from nursing that patient has been somewhat difficult with regards to letting them help him with activities and moving around. Patient states that he "can do it myself". Long discussion with patient. He is frustrated that he is requiring assistance for things that he normally would not need. Realizes that he is losing some independence. 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 Discussed that as we get older and has circumstances change we sometimes need help. He agrees to be more cooperative with nursing but was still like to maintain some independence. Regarding his hospital stay, he continues to have some imbalance issues but is able to ambulate around the room without difficulty. Encouraged him to get out of bed to chair and to try to walk in the hallway with nursing staff. Advised him that he should be accompanied for any activity until his balance improves. Patient does report that he has some irritation on the back of his neck. He reports he has a history of shingles. Neck examined. There is no evidence of rash or open vesicles. No focal pain with palpation. No limitation in range of movement. No fever or chills. No shortness of breath. No chest pain. No other acute complaints. Review of Systems 2 Review of Systems: A total of 10 systems was reviewed and is negative other than as listed in the HPI Physical Exam 2 Physical Exam: GENERAL : No acute distress EYES: No icterus, gaze conjugate NOSE: No evidence of epistaxis MOUTH: No lesions or candidiasis NECK: Supple. Patient reports some neck pain. No evidence of rash or open vesicles. No limitation in range of motion. No reproduction of pain with palpation LUNGS: CTA B/L, no wheezes, rales or rhonchi HEART: Regular, rate controlled ABDOMEN: Soft, NT, ND, BS Present EXTREMITIES: No LE edema, pedal pulses intact NEURO: A&OX3 Results & Data Results & Data Vital Signs (Past 12 Hours) Vital Signs Temp Pulse Resp BP Pulse Ox O2 Del Method O2 Flow Rate 10/29/24 14:59 36.3 C L 67 16 122/71 97 Room Air 10/29/24 08:00 Nasal Cannula 4 10/29/24 07:25 36.3 C L 68 16 137/73 99 Nasal Cannula 4 Laboratory Results 10/27/24 07:08 10/27/24 07:08 Diagnostic Findings Chest X-Ray 10/21/24 15:21 EXAM: Radiograph of the Chest 1 View INDICATION: Lung cancer. TECHNIQUE: Frontal view of the chest. COMPARISON: 04/20/2024 FINDINGS: Lungs and pleural spaces: Slight improved right basilar infiltrate. Stable patchy infiltrate left base. Persistent but improved right basilar pleural effusion and trace left basilar pleural effusion. No pneumothorax noted. Heart: Stable cardiomegaly. Mediastinum: Normal contour. Bones/joints: No fracture, erosion or dislocation. Soft tissues: No abnormality noted. No radiopaque foreign body noted. Vasculature: Stable ectatic calcified aorta. Upper abdomen: No abnormality noted. IMPRESSION: Slight improved right basilar aeration and right pleural effusion. Otherwise unchanged. ACT 112: Negative or not required by law. Electronically signed by Taylor Bedolla 10-21-2024 3:47 PM Hip/Pelvis X-Ray 10/21/24 16:16 EXAM: Radiographs of the Left Hip 3 Views INDICATION: Fell out of bed. TECHNIQUE: Front view pelvis and AP and frog leg lateral views of the left hip. COMPARISON: No relevant prior studies available. FINDINGS: Limitations: None. Bones/joints: Mild degenerative changes in the visualized lower lumbar segments. Soft tissues: No abnormality noted. No radiopaque foreign body noted. Vasculature: Atherosclerosis in the pelvis and proximal thighs. IMPRESSION: No acute findings in the left hip. ACT 112: Negative or not required by law. Electronically signed by Taylor Bedolla 10-21-2024 5:07 PM Sacrum and Coccyx X-Ray 10/21/24 16:16 EXAM: Radiographs of the Sacrum and Coccyx 3 Views INDICATION: Fell out of bed. TECHNIQUE: Frontal and lateral views of the sacrum and coccyx. COMPARISON: No relevant prior studies available. FINDINGS: Sacrum/coccyx: There is mild degenerative change in the lower lumbar segments. Arcuate lines of the sacrum are intact. Symmetrical sacroiliac sclerosis. No erosion. No acute fracture. Vertebrae: Visualized lumbar vertebrae are unremarkable. Soft tissues: No abnormality noted. No radiopaque foreign body noted. Vasculature: Moderate atherosclerotic calcifications noted diffusely. IMPRESSION: No acute findings in the sacrum or coccyx. ACT 112: Negative or not required by law. Electronically signed by Taylor Bedolla 10-21-2024 5:08 PM L Abdomen/Pelvis CT 10/21/24 17:36 INDICATION: Sepsis. History of lung cancer. Right upper quadrant pain. COMPARISON: CT chest from 04/12/2024. TECHNIQUE: Axial CT images of the chest, abdomen and pelvis were obtained following IV contrast administration. Coronal and sagittal reformations were reviewed. FINDINGS: Chest: Negative for pulmonary embolism. The ascending thoracic aorta measures up to 4 cm maximum diameter. Negative for aortic dissection. The heart is mildly enlarged.. Small volume right pleural effusion, improved from prior. No pneumothorax. Enlarged mediastinal lymph nodes measuring up to 1.9 cm, unchanged from prior. Right upper lobe spiculated nodule measuring 0.5 cm, uncertain if present on prior CT no large pleural effusion present. Emphysema. Right middle and right lower lobe infiltrates. Area of round atelectasis in the left lower lobe with subsegmental atelectasis dependently in the left lower lobe. Bilateral calcified pleural pleural plaquing again noted. Degenerative changes in the spine and shoulders. No acute fracture. Abdomen and pelvis: Gallbladder distention. The liver, spleen, pancreas and adrenal glands appear unremarkable. No hydronephrosis. Bilateral renal cysts measuring up to 4.1 cm on the left and 3.6 cm on the right. Nonobstructing 5 mm left renal calculus. Right inguinal hernia containing fat and bowel loops. Left inguinal hernia containing fat and small amount of fluid.Mild amount of retained colonic stool. No evidence of bowel obstruction/colitis/appendicitis. No free air. No drainable fluid collection. Atheromatous plaquing of the abdominal aorta without dissection or aneurysm. Mild amount of retained colonic stool. The urinary bladder is mildly distended. Moderate prostate gland enlargement. Degenerative changes in the hips and spine. No acute osseous abnormality evident. IMPRESSION: 1. Findings concerning for right middle and right lower lobe pneumonia. 2. Mediastinal adenopathy, unchanged from prior. 3. Right upper lobe spiculated nodule measuring 0.5 cm, uncertain if present on prior CT no large pleural effusion present. Follow-up advised. 4. Small right pleural effusion, improved from prior. 5. Right inguinal hernia containing fat and bowel loops. No evidence of bowel obstruction. 6. Mild amount of retained colonic stool. 6. Gallbladder distention. 7. Bilateral renal cysts. 8. Moderate prostate gland enlargement. ACT 112: Positive. There are findings on this exam that require communication between the performing entity and the patient following Patient Test Result Information Act ([place] ACT 112) guidelines. Electronically signed by Cresencio Solis 10-21-2024 6:[address] 10/21/24 17:36 INDICATION: Sepsis. History of lung cancer. Right upper quadrant pain. COMPARISON: CT chest from 04/12/2024. TECHNIQUE: Axial CT images of the chest, abdomen and pelvis were obtained following IV contrast administration. Coronal and sagittal reformations were reviewed. FINDINGS: Chest: Negative for pulmonary embolism. The ascending thoracic aorta measures up to 4 cm maximum diameter. Negative for aortic dissection. The heart is mildly enlarged.. Small volume right pleural effusion, improved from prior. No pneumothorax. Enlarged mediastinal lymph nodes measuring up to 1.9 cm, unchanged from prior. Right upper lobe spiculated nodule measuring 0.5 cm, uncertain if present on prior CT no large pleural effusion present. Emphysema. Right middle and right lower lobe infiltrates. Area of round atelectasis in the left lower lobe with subsegmental atelectasis dependently in the left lower lobe. Bilateral calcified pleural pleural plaquing again noted. Degenerative changes in the spine and shoulders. No acute fracture. Abdomen and pelvis: Gallbladder distention. The liver, spleen, pancreas and adrenal glands appear unremarkable. No hydronephrosis. Bilateral renal cysts measuring up to 4.1 cm on the left and 3.6 cm on the right. Nonobstructing 5 mm left renal calculus. Right inguinal hernia containing fat and bowel loops. Left inguinal hernia containing fat and small amount of fluid.Mild amount of retained colonic stool. No evidence of bowel obstruction/colitis/appendicitis. No free air. No drainable fluid collection. Atheromatous plaquing of the abdominal aorta without dissection or aneurysm. Mild amount of retained colonic stool. The urinary bladder is mildly distended. Moderate prostate gland enlargement. Degenerative changes in the hips and spine. No acute osseous abnormality evident. IMPRESSION: 1. Findings concerning for right middle and right lower lobe pneumonia. 2. Mediastinal adenopathy, unchanged from prior. 3. Right upper lobe spiculated nodule measuring 0.5 cm, uncertain if present on prior CT no large pleural effusion present. Follow-up advised. 4. Small right pleural effusion, improved from prior. 5. Right inguinal hernia containing fat and bowel loops. No evidence of bowel obstruction. 6. Mild amount of retained colonic stool. 6. Gallbladder distention. 7. Bilateral renal cysts. 8. Moderate prostate gland enlargement. ACT 112: Positive. There are findings on this exam that require communication between the performing entity and the patient following Patient Test Result Information Act ([place] ACT 112) guidelines. Electronically signed by Cresencio Solsi 10-21-2024 6:50 PM Chest X-Ray 10/27/24 07:00 EXAM: XR chest 1V portable CLINICAL HISTORY: FOLLOW UP KAA/BME TECHNIQUE: X-ray image of the chest is obtained in AP projection. COMPARISON: 10/21/2024. FINDINGS: Pulmonary Parenchyma: Multiple atelectatic bands were seen in both lungs [right middle and lower lobes, left suprahilar and infrahilar region/lower lobe]. No lung consolidation was seen. Mild bilateral pleural reaction in both costophrenic recesses ? small effusion. Heart and Mediastinum: The cardiac shadow is enlarged in size. No mediastinal masses. No hilar or mediastinal lymphadenopathy was seen. Bony Thorax: The bony thorax appears intact without fractures or deformities. Soft Tissues: Soft tissues overlying the chest wall are unremarkable. IMPRESSION: 1. Multiple bilateral atelectatic bands. 2. Small bilateral pleural reaction at both costophrenic recesses. Small effusion. Chest ultrasound may be done if clinically warranted. 3. Mild to moderate cardiomegaly. 4. Comparing the previous x-ray dated 10/21/2024, the findings remain stable. Electronically signed by Yara Gallego 10-27-2024 07:34 AM PG Care Time/CCT Total # of Minutes Spent Total Time Spent with Patient: Total time spent is greater than 50% in coordination of care (as documented) at patient's floor/unit and/or counseling patient: 25 minutes Coding Level of Care Code 88268 SUB INP/OBS CARE 1/25MIN Diagnoses Sepsis A41.9 Pneumonia J18.9 Acute diastolic CHF (congestive heart failure) I50.31 Tachycardia R00.0 Acute respiratory failure with hypoxia J96.01 Rhabdomyolysis M62.82 Elevated transaminase level R74.01 Graves disease E05.00 Emphysema/COPD J43.9 Adenocarcinoma of lung, stage 3 C34.90 Time Spent (min) 25
[2024-10-30 07:19] LABS: Hematocrit (blood only) 37.8 % (42.0-52.0); Hemoglobin 12.5 g/dl (14.0-18.0); Mean Corpuscular Hgb Conc 33.1 g/dL (32.0-36.0); Mean Corpuscular Volume 84.6 fL (80.0-100.0); Mean Platelet Volume 10.4 fL (9.4-12.4); Platelet Count 262 K/uL (130-400); RDW Coefficient of Variation 13.4 % (11.5-14.5); RDW Standard Deviation 41.6 fL (36.4-46.3); Red Blood Count 4.47 M/uL (4.70-6.10); White Blood Count 5.06 K/ul (4.8-10.8)
[2024-10-30 07:54] LABS: BUN Creatinine Ratio 21.3 (10-20); Bilirubin Direct 0.1 mg/dl (0-0.2); Bilirubin,Total 0.5 mg/dl (0.2-1.0); Calcium 8.6 mg/dl (8.6-10.3); Creatinine Clr Calc Pharmacy 50.9 ml/min; Total Protein 5.7 gm/dl (6.0-8.3)
--- NOTE | 2024-10-30 14:12 | Hospitalist Progress Note ---
Date of Service October 30, 2024 Assessment & Plan (1) Sepsis: Plan: Resolved With sepsis, POA, with evidence of pneumonia seen on chest CT scan. Blood pressures normal on admit BioFire respiratory panel negative Procalcitonin elevated Blood cultures remain no growth to date Sputum culture with Moraxella and Strep pneumo, pansensitive Improved, is afebrile, no leukocytosis, cough almost resolved Received Zosyn and then changed to Augmentin to complete 7 day course on AM of 10/28 Repeat CXR 10/27 some improvement but has atelectasis-add ICS. Pt has been very stubborn about getting out of bed even to a chair-mostly stays in bed all day. Continue incentive spirometer. 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 Chest x-ray reveals bilateral effusions, CHF, pneumonia. 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 ECG showed ST with rates in 100s, and frequent PACs Could be secondary to bronchodilators, stress of acute infection Added metoprolol 12.5mg po bid and now much improved Heart rate has been stable in the 60s over the last 2 days (5) Acute respiratory failure with hypoxia: Plan: Secondary to heart failure and pneumonia- Continue supplemental oxygen per nasal cannula to maintain saturation greater than 90%. Wean off as tolerated. Treat underlying pneumonia and CHF Continue flutter valve, adding ICS Continue nebs scheduled (6) Rhabdomyolysis: Plan: Found on floor for many hours. With pain in left shoulder and hip CK 14,163 U/L on admission and now normal (7) Elevated transaminase level: Plan: Most likely due to rhabdomyolysis and improving Check LFTs with a.m. labs (8) Graves disease: Plan: Admission TSH level is low. Free T4 level however is normal. Follows with endocrinology Given tachycardia, frequent ectopy--> resumed methimazole 5mg daily (previous dose was 10mg daily) Follow-up TSH and free T4 as an outpatient (9) Emphysema/COPD: Plan: No steroids at this time due to ongoing bacterial infection Bronchodilators-scheduled Continue supplemental O2 and wean off as tolerated (10) Adenocarcinoma of lung, stage 3: Plan: No active treatment planned for this. Comfort care approach per prior pulmonology notes Apparently he was on hospice prior to admission but revoked hospice to come to the hospital Appreciate Palliative consult-pt has now decided he wants to go to rehab but then eventually back to home on hospice. He and his stepson now have a better understanding of what to do in the future if he were to be ill. They called 911 when he was found down because of concern for a broken hip He understands his prognosis with having lung cancer is not good and is now a DNR/DNI Continue supplemental oxygen as needed to maintain SpO2 between 88 and 92% Plan Chronic medical problems: BPH-continue tamsulosin, has passed trial of void now s/p removal of Harvey catheter CKD stage III-follows with nephrology, creatinine slight bump to 1.4 now improved, follow BMP periodically DVT prophylaxis heparin SQ Disposition-medically stable for discharge but continued stay med/surg awaiting rehab placement-did a peer to peer which was denied for acute rehab--> awaiting SNF bed and insurance auth--> plan to have PT/OT reevaluate on Wednesday and resubmit for auth on Wednesday as [facility] has accepted him for Wednesday Admission and Anticipated Discharge Date Admission Date: October 21, 2024 Subjective 84 yo male is resting comfortably. Review of Systems Review of Systems: All systems reviewed & are unremarkable except as noted in HPI & below Physical Exam Physical Exam: GENERAL : No acute distress LUNGS: CTA B/L, no wheezes, rales or rhonchi NEURO: A&OX3 Results & Data Results & Data Vital Signs (Past 12 Hours) Vital Signs Temp Pulse Resp BP Pulse Ox O2 Del Method O2 Flow Rate 10/30/24 12:00 36.5 C 68 16 128/63 94 Nasal Cannula 4 10/30/24 08:10 Nasal Cannula 4 10/30/24 08:05 36.4 C L 62 16 144/78 H 98 Nasal Cannula 4 PG Care Time/CCT Total # of Minutes Spent Total Time Spent with Patient: Total time spent is greater than 50% in coordination of care (as documented) at patient's floor/unit and/or counseling patient: Coding Level of Care Code 25112 SUB INP/OBS CARE 2/35MIN Diagnoses Sepsis A41.9 Pneumonia J18.9 Acute diastolic CHF (congestive heart failure) I50.31 Tachycardia R00.0 Acute respiratory failure with hypoxia J96.01 Rhabdomyolysis M62.82 Elevated transaminase level R74.01 Graves disease E05.00 Emphysema/COPD J43.9 Adenocarcinoma of lung, stage 3 C34.90
--- NOTE | 2024-10-31 22:53 | Hospitalist Progress Note ---
Date of Service October 31, 2024 Assessment & Plan (1) Sepsis: Plan: Resolved With sepsis, POA, with evidence of pneumonia seen on chest CT scan. Blood pressures normal on admit [facility] respiratory panel negative Procalcitonin elevated Blood cultures remain no growth to date Sputum culture with Moraxella and Strep pneumo, pansensitive Improved, is afebrile, no leukocytosis, cough almost resolved Received Zosyn and then changed to Augmentin to complete 7 day course on AM of 10/28 Repeat CXR 10/27 some improvement but has atelectasis-add ICS. Pt has been very stubborn about getting out of bed even to a chair-mostly stays in bed all day. Continue incentive spirometer. 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 Patient refused to participate with PT today. Follow chest x-ray to resolution in 4-6 weeks to ensure resolution (2) Pneumonia: Plan: As above (3) Acute diastolic CHF (congestive heart failure): Plan: BNP greater than 1000. Chest x-ray reveals bilateral effusions, CHF, pneumonia. 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 ECG showed ST with rates in 100s, and frequent PACs Could be secondary to bronchodilators, stress of acute infection Added metoprolol 12.5mg po bid and now much improved Heart rate has been stable in the 60s over the last 2 days (5) Acute respiratory failure with hypoxia: Plan: Secondary to heart failure and pneumonia- Continue supplemental oxygen per nasal cannula to maintain saturation greater than 90%. Wean off as tolerated. Treat underlying pneumonia and CHF Continue flutter valve, adding ICS Continue nebs scheduled (6) Rhabdomyolysis: Plan: Found on floor for many hours. With pain in left shoulder and hip CK 14,163 U/L on admission and now normal (7) Elevated transaminase level: Plan: Most likely due to rhabdomyolysis and improving Check LFTs with a.m. labs (8) Graves disease: Plan: Admission TSH level is low. Free T4 level however is normal. Follows with endocrinology Given tachycardia, frequent ectopy--> resumed methimazole 5mg daily (previous dose was 10mg daily) Follow-up TSH and free T4 as an outpatient (9) Emphysema/COPD: Plan: No steroids at this time due to ongoing bacterial infection Bronchodilators-scheduled Continue supplemental O2 and wean off as tolerated (10) Adenocarcinoma of lung, stage 3: Plan: No active treatment planned for this. Comfort care approach per prior pulmonology notes Apparently he was on hospice prior to admission but revoked hospice to come to the hospital Appreciate Palliative consult-pt has now decided he wants to go to rehab but then eventually back to home on hospice. He and his stepson now have a better understanding of what to do in the future if he were to be ill. They called 911 when he was found down because of concern for a broken hip He understands his prognosis with having lung cancer is not good and is now a DNR/DNI Continue supplemental oxygen as needed to maintain SpO2 between 88 and 92% Plan Chronic medical problems: BPH-continue tamsulosin, has passed trial of void now s/p removal of Harvey catheter CKD stage III-follows with nephrology, creatinine slight bump to 1.4 now improved, follow BMP periodically DVT prophylaxis heparin SQ Disposition-medically stable for discharge but continued stay med/surg awaiting rehab placement-did a peer to peer which was denied for acute rehab--> awaiting SNF bed and insurance auth--> plan to have PT/OT reevaluate on Wednesday and resubmit for auth on Wednesday however patient refusing to participate with PT. Admission and Anticipated Discharge Date Admission Date: October 21, 2024 Subjective Patient reports no new symptoms. Patient is comfortable. Patient states he will participate in PT tomorrow. Physical Exam Physical Exam: GENERAL : No acute distress LUNGS: CTA B/L, no wheezes, rales or rhonchi NEURO: A&OX3 Results & Data Results & Data Vital Signs (Past 12 Hours) Vital Signs Temp Pulse Resp BP Pulse Ox O2 Del Method O2 Flow Rate 10/31/24 19:20 36.4 C L 81 18 118/66 95 Nasal Cannula 4 10/31/24 15:09 36.6 C 72 18 111/71 96 Nasal Cannula 96 PG Care Time/CCT Total # of Minutes Spent Total Time Spent with Patient: Total time spent is greater than 50% in coordination of care (as documented) at patient's floor/unit and/or counseling patient: Coding Level of Care Code 24985 SUB INP/OBS CARE 2/35MIN Diagnoses Sepsis A41.9 Pneumonia J18.9 Acute diastolic CHF (congestive heart failure) I50.31 Tachycardia R00.0 Acute respiratory failure with hypoxia J96.01 Rhabdomyolysis M62.82 Elevated transaminase level R74.01 Graves disease E05.00 Emphysema/COPD J43.9 Adenocarcinoma of lung, stage 3 C34.90
[2024-11-01 06:48] LABS: Hematocrit (blood only) 36.6 % (42.0-52.0); Hemoglobin 12.3 g/dl (14.0-18.0); Mean Corpuscular Hemoglobin 28.3 pg (25.0-34.0); Mean Corpuscular Hgb Conc 33.6 g/dL (32.0-36.0); Mean Corpuscular Volume 84.3 fL (80.0-100.0); Mean Platelet Volume 10.4 fL (9.4-12.4); Platelet Count 259 K/uL (130-400); RDW Coefficient of Variation 13.4 % (11.5-14.5); RDW Standard Deviation 41.3 fL (36.4-46.3); Red Blood Count 4.34 M/uL (4.70-6.10); White Blood Count 5.91 K/ul (4.8-10.8)
[2024-11-01 07:39] LABS: Calcium 8.4 mg/dl (8.6-10.3); Potassium 4.4 mmol/L (3.5-5.1)
[2024-11-01 07:45] LABS: BUN Creatinine Ratio 23.6 (10-20); Creatinine Clr Calc Pharmacy 53.8 ml/min
--- NOTE | 2024-11-01 22:31 | Hospitalist Progress Note ---
Date of Service November 01, 2024 Assessment & Plan (1) Sepsis: Plan: Resolved With sepsis, POA, with evidence of pneumonia seen on chest CT scan. Blood pressures normal on admit [facility] respiratory panel negative Procalcitonin elevated Blood cultures remain no growth to date Sputum culture with Moraxella and Strep pneumo, pansensitive Improved, is afebrile, no leukocytosis, cough almost resolved Received Zosyn and then changed to Augmentin to complete 7 day course on AM of 10/28 Repeat CXR 10/27 some improvement but has atelectasis-add ICS. Pt has been very stubborn about getting out of bed even to a chair-mostly stays in bed all day. Continue incentive spirometer. Cloth Shrinker patient at bedside. Participated with therapy and was approved for SNF. Follow chest x-ray to resolution in 4-6 weeks to ensure resolution (2) Pneumonia: Plan: As above (3) Acute diastolic CHF (congestive heart failure): Plan: BNP greater than 1000. Chest x-ray reveals bilateral effusions, CHF, pneumonia. 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 ECG showed ST with rates in 100s, and frequent PACs Could be secondary to bronchodilators, stress of acute infection Added metoprolol 12.5mg po bid and now much improved Heart rate has been stable in the 60s over the last 2 days (5) Acute respiratory failure with hypoxia: Plan: Secondary to heart failure and pneumonia- Continue supplemental oxygen per nasal cannula to maintain saturation greater than 90%. Wean off as tolerated. Treat underlying pneumonia and CHF Continue flutter valve, adding ICS Continue nebs scheduled (6) Rhabdomyolysis: Plan: Found on floor for many hours. With pain in left shoulder and hip CK 14,163 U/L on admission and now normal (7) Elevated transaminase level: Plan: Most likely due to rhabdomyolysis and improving Check LFTs with a.m. labs (8) Graves disease: Plan: Admission TSH level is low. Free T4 level however is normal. Follows with endocrinology Given tachycardia, frequent ectopy--> resumed methimazole 5mg daily (previous dose was 10mg daily) Follow-up TSH and free T4 as an outpatient (9) Emphysema/COPD: Plan: No steroids at this time due to ongoing bacterial infection Bronchodilators-scheduled Continue supplemental O2 and wean off as tolerated (10) Adenocarcinoma of lung, stage 3: Plan: No active treatment planned for this. Comfort care approach per prior pulmonology notes Apparently he was on hospice prior to admission but revoked hospice to come to the hospital Appreciate Palliative consult-pt has now decided he wants to go to rehab but then eventually back to home on hospice. He and his stepson now have a better understanding of what to do in the future if he were to be ill. They called 911 when he was found down because of concern for a broken hip He understands his prognosis with having lung cancer is not good and is now a DNR/DNI Continue supplemental oxygen as needed to maintain SpO2 between 88 and 92% Plan Chronic medical problems: BPH-continue tamsulosin, has passed trial of void now s/p removal of Harvey catheter CKD stage III-follows with nephrology, creatinine slight bump to 1.4 now improved, follow BMP periodically DVT prophylaxis heparin SQ Disposition-medically stable for discharge but continued stay med/surg awaiting rehab placement-did a peer to peer which was denied for acute rehab--> awaiting SNF bed and insurance auth--> plan to have PT/OT reevaluate on Wednesday and resubmit for auth on Wednesday however patient refusing to participate with PT. Admission and Anticipated Discharge Date Admission Date: October 21, 2024 Subjective Patient denies any new symptoms. Physical Exam Physical Exam: GENERAL : No acute distress LUNGS: CTA B/L, no wheezes, rales or rhonchi NEURO: A&OX3 Results & Data Results & Data Vital Signs (Past 12 Hours) Vital Signs Temp Pulse Pulse Resp BP Pulse Ox O2 Del Method 11/01/24 19:53 36.7 C 75 20 122/64 93 Nasal Cannula 11/01/24 19:45 Nasal Cannula 11/01/24 14:38 36.5 C 61 16 113/67 97 Nasal Cannula 11/01/24 11:52 36.6 C 64 16 114/68 97 Nasal Cannula O2 Flow Rate 11/01/24 19:53 4 11/01/24 19:45 4 11/01/24 14:38 4 11/01/24 11:52 4 PG Care Time/CCT Total # of Minutes Spent Total Time Spent with Patient: Total time spent is greater than 50% in coordination of care (as documented) at patient's floor/unit and/or counseling patient: Coding Level of Care Code 40738 SUB INP/OBS CARE 2/35MIN Diagnoses Sepsis A41.9 Pneumonia J18.9 Acute diastolic CHF (congestive heart failure) I50.31 Tachycardia R00.0 Acute respiratory failure with hypoxia J96.01 Rhabdomyolysis M62.82 Elevated transaminase level R74.01 Graves disease E05.00 Emphysema/COPD J43.9 Adenocarcinoma of lung, stage 3 C34.90
[2024-11-02 05:09] LABS: Hematocrit (blood only) 37.2 % (42.0-52.0); Hemoglobin 12.2 g/dl (14.0-18.0); Mean Corpuscular Hemoglobin 28.2 pg (25.0-34.0); Mean Corpuscular Hgb Conc 32.8 g/dL (32.0-36.0); Mean Corpuscular Volume 85.9 fL (80.0-100.0); Mean Platelet Volume 9.9 fL (9.4-12.4); Platelet Count 225 K/uL (130-400); RDW Coefficient of Variation 13.7 % (11.5-14.5); RDW Standard Deviation 42.5 fL (36.4-46.3); Red Blood Count 4.33 M/uL (4.70-6.10); White Blood Count 5.54 K/ul (4.8-10.8)
[2024-11-02 07:41] VITALS: BP 138/82; PULSE 90; RESP 16; TEMP 97.5; O2SAT 95
== END 2024-11-02 11:44 | DRG 871 ==
LOC: ED 14:29 → SUATTDRO 17:43 → 2S 17:43 → 3N 10-25 04:28

== ENCOUNTER 2024-11-13 21:14 | Inpatient (IN) ==
--- NOTE | 2024-11-13 22:00 | Emergency Department Note ---
Impression & Plan Pneumonia, COPD (chronic obstructive pulmonary disease), Acute hypoxemic respiratory failure, Right lower lobe pneumonia, Weakness ED Provider Note NAME: KIERAN ETIENNE AGE: 84 SEX: M : 1940 ARRIVES VIA: Ambulance INFORMANT: Patient, EMS ED PROVIDER(S): Hu Morin DO CHIEF COMPLAINT: Difficulty breathing HPI: The patient is an 84-year-old male who presented to the emergency department from his personal [facility] for an evaluation of difficulty breathing. Apparently the patient's been having difficulty breathing over the last few days. He had a low-grade fever at his personal [facility]. The patient himself denies having any chest pain or difficulty with leg swelling. He does complain of shortness of breath especially with any exertion. The patient does have a history of COPD. He received 2 DuoNebs prior to arrival. ROS: See above HPI for pertinent positives & negatives. A total of 10 systems reviewed and were otherwise negative. PAST MEDICAL HISTORY: See Below PAST SURGICAL HISTORY: See Below FAMILY HISTORY: See Below SOCIAL HISTORY: See Below HOME MEDICATIONS: See Below ALLERGIES: See Below VITALS: See Below PHYSICAL EXAMINATION: GENERAL: The patient is awake and alert. The patient is anxious appearing and appears to be having significant difficulty breathing. EYES: The conjunctivae are clear. The pupils are round and reactive. EARS, NOSE, MOUTH AND THROAT: The nose is without any evidence of any deformity. NECK: The neck is nontender and supple. RESPIRATORY: Diminished breath sounds are noted throughout. There is scattered rhonchi in all lung drummond. There is tachypnea as well as conversational dyspnea noted. CARDIOVASCULAR: Regular rate and rhythm noted there no murmurs rubs or gallops normal S1 normal S2. GASTROINTESTINAL: The abdomen is soft. Abdomen is nontender. MUSCULOSKELETAL/EXTREMITIES: There is no evidence of gross deformity full range of motion is noted in the hips and shoulders. SKIN: Trace pedal edema was noted bilaterally. Skin was warm and dry. NEUROLOGIC: Patient is awake alert and oriented x3 MEDICAL DECISION MAKING: The patient is an 84-year-old male who has a history of pulmonary infection and sepsis who presented to the emergency department from his personal [facility] for an evaluation of difficulty breathing. The patient's history and physical exam appear to be consistent with worsening pneumonia. He was treated with bronchodilator therapy prior to arrival but also in the emergency department. He was treated with IV fluids and IV antibiotics. He was placed on supplemental oxygen. I discussed patient's condition with him. He does not appear to be a good candidate for outpatient management at this time. For this reason I discussed his condition with the on-call [facility] hospitalist. They have agreed to evaluate the patient in the emergency department for further management and disposition. Triage Nursing notes reviewed. Prior medical records reviewed Vital Signs: reviewed and remarkable for hypoxia and tachycardia. Differential diagnosis: Reactive airway disease, pneumonia, pneumothorax, COPD, CHF, infections, cardiac ischemia, pulmonary embolism, musculoskeletal, gastrointestinal, as well as other pathologies. ER treatment provided: See below Diagnostics interpreted by me: ECG: EKG was obtained in the emergency department. My interpretation is sinus tachycardia at 106 bpm. PACs were noted. Nonspecific ST and T wave abnormalities were noted. This was compared to a tracing from October 26, 2024. There is no significant changes. Cardiac Monitoring: An order was placed for continuous cardiac monitoring. The monitor shows a rate of 105 bpm with sinus tachycardia. Laboratory studies: As stated above and show below. Imaging studies: See below. Radiographic imaging was reviewed by myself Consultation(s): Dr. Payton was notified about the patient. ED COURSE: Procedures: none Critical Care: I have personally spent greater than 35 minutes of critical care time in the direct management of this patient. This includes bedside care, interpretation of diagnostic studies, and testing, discussion with consultants, patient, and family members, and other required patient management activities. This 35 minutes is in excess of all separately billable procedures. Past Med/Surg History Problem List (Updated 11/13/24 @ 23:10 by Hu Morin DO) Pneumonia (Acute) Tachycardia Acute diastolic CHF (congestive heart failure) Elevated transaminase level Pneumonia Acute dehydration (Acute) Weakness (Acute) Right lower lobe pneumonia (Acute) Acute hypoxemic respiratory failure (Acute) COPD (chronic obstructive pulmonary disease) (Acute) COPD (chronic obstructive pulmonary disease) Acute respiratory failure with hypoxia Rhabdomyolysis Sepsis Brennon's thyroiditis Graves disease Physical debility Decubital ulcer H/O pleural effusion Palliative care by specialist Advanced care planning/counseling discussion Cancer related pain Dyspnea and respiratory abnormalities Weakness generalized Falls frequently Right knee pain Knee pain Elevated blood sugar Adenocarcinoma of lung, stage 3 Hemothorax, postoperative Anemia Chronic kidney disease with active medical management without dialysis, stage 3 (moderate) Chronic kidney disease GI bleeding Emphysema/COPD Cor pulmonale Pulmonary hypertension Elevated liver enzymes Right heart failure Right middle lobe pneumonia (Acute) Hyperthyroidism Abnormal chest CT Ventricular tachycardia Cardiomyopathy Hyponatremia Hypoxia (Acute) Elevated troponin Vitamin D deficiency Elevated TSH Postural dizziness with near syncope Cervical spondylosis Large B-cell lymphoma Stage 2 chronic kidney disease Positive colorectal cancer screening using Cologuard test Mixed conductive and sensorineural hearing loss (Acute) Postherpetic neuralgia (Chronic) HTN (hypertension) (Chronic) Medical History Pleural effusion Acute kidney injury Acute hypoxemic respiratory failure Hypertension Sensorineural hearing loss (SNHL) of both ears Cor pulmonale Pulmonary hypertension Pulmonary nodule RLL Chronic kidney disease History of shingles takes gabapentin for pain Hyperthyroidism Emphysema/COPD Lymphoma (~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 Surgical History History of nasal surgery (~2014) due to CA Hx of esophagogastroduodenoscopy Hx of colonoscopy H/O varicose vein ligation Family History Father , Age 91 Renal failure Mother Breast cancer Denies family history of Ovarian cancer Prostate cancer Myocardial infarction Colorectal cancer Social History Smoking Status: Former smoker Tobacco Type: Cigarettes Age Started Using Tobacco: 18; Age Quit Using Tobacco: 61; Cigarettes Per Day: 1 PPD; Second Hand Exposure: No; Do You Dip or Chew Tobacco: No; Hx Alcohol Use: No Hx Substance Use: No Preferred Language: Chilean Communication Ability: Effective Visual Impairment: No Limitations Hearing Ability: Hard of Hearing Cougar [place] Required: No Beliefs That Will Affect Care: None marital status: Current Living Situation: Spouse current occupational status: retired How many Children do You have: 1 Feels Safe at Home: Yes Childhood Exposure to Second-Hand Smoke: No Diet: regular caffeine: Yes Dental Care, Regularly: No Physical Activity Frequency: Does not Exercise Seatbelt Use: always Sunscreen Use: No Do you think of yourself as: straight/heterosexual Gender Identity: Male Assistive Devices: Hospital Bed, Oxygen - at Night, Walker, Wheelchair and Other Allergies Allergies Allergy/AdvReac Type Severity Reaction Status Date / Time No Known Allergies Allergy Verified 10/21/24 16:55 Home Meds Home Medications Medication Instructions Recorded Confirmed cholecalciferol (vitamin D3) 25 2,000 units PO QAM 08/23/19 10/21/24 mcg (1,000 unit) tablet acetaminophen 500 mg tablet 500 mg PO Q6H PRN Pain 10/20/23 10/21/24 (Tylenol Extra Strength) furosemide 20 mg tablet See Rx Instructions .Route .COMPLEX 04/12/24 10/21/24 Previous Rx's Medication Instructions Recorded Wheeled Walker #1 ea 07/01/23 Portable Oxygen #1 ea 05/08/24 aspirin 81 mg tablet,delayed 81 mg PO QAM #30 tabs 11/02/24 release diclofenac sodium 1 % topical gel 2 g EXT BID PRN pain #100 grams 11/02/24 (Voltaren Arthritis Pain) fluticasone furoate 100 1 inh inhalation DAILY #30 ea 11/02/24 mcg/actuation blister powder for inhalation (Arnuity Ellipta) gabapentin 300 mg capsule 300 mg PO BID PRN pain #60 caps 11/02/24 ipratropium 0.5 mg-albuterol 3 mg 3 ml NEB QID PRN Shortness Of 11/02/24 (2.5 mg base)/3 mL nebulization Breath Or Wheezing #90 mL soln metoprolol succinate 25 mg 25 mg PO PM #30 tabs 11/02/24 tablet,extended release 24 hr tamsulosin 0.4 mg capsule 0.4 mg PO QAM #90 caps 11/02/24 Results & Data (ED) Vital Signs Vital Signs - 24 hr 11/13/24 21:23 11/13/24 21:23 11/13/24 21:23 Temperature 37.2 C Temperature Source Oral Pulse Rate 106 H Pulse Rate [Apical] Pulse Rhythm [Apical] Pulse Strength [Apical] Respiratory Rate 22 Respiratory Effort / Characteristics Labored Respiratory Depth Deep Respiratory Pattern Regular Blood Pressure 127/97 Blood Pressure [Right Arm] Blood Pressure Mean 107 Blood Pressure Mean [Right Arm] Blood Pressure Position [Right Arm] Pulse Oximetry 94 87 L Oxygen Delivery Method Nasal Cannula Nasal Cannula Oxygen Flow Rate 3 0 Sepsis Recent Fever Within 48 Hours Yes Sepsis New/Unexplained Change in Mental Status No Sepsis Action Taken by Nursing Physician Notified Oxygen Flow Rate - Titration 3 Pulse Oximetry Post Tiitration 94 11/13/24 21:24 11/13/24 21:40 11/13/24 22:06 Temperature Temperature Source Pulse Rate 112 H Pulse Rate [Apical] Pulse Rhythm [Apical] Pulse Strength [Apical] Respiratory Rate Respiratory Effort / Characteristics Respiratory Depth Respiratory Pattern Blood Pressure Blood Pressure [Right Arm] Blood Pressure Mean Blood Pressure Mean [Right Arm] Blood Pressure Position [Right Arm] Pulse Oximetry 92 92 Oxygen Delivery Method Nasal Cannula Oxymask Oxygen Flow Rate 3 5 Sepsis Recent Fever Within 48 Hours Sepsis New/Unexplained Change in Mental Status Sepsis Action Taken by Nursing Oxygen Flow Rate - Titration Pulse Oximetry Post Tiitration 11/13/24 23:15 11/14/24 00:00 Temperature Temperature Source Pulse Rate Pulse Rate [Apical] 105 H 95 H Pulse Rhythm [Apical] Regular Regular Pulse Strength [Apical] Normal Normal Respiratory Rate 18 18 Respiratory Effort / Characteristics Non-Labored Spontaneous Non-Labored Spontaneous Respiratory Depth Normal Normal Respiratory Pattern Regular Regular Blood Pressure Blood Pressure [Right Arm] 105/70 118/68 Blood Pressure Mean Blood Pressure Mean [Right Arm] 81 84 Blood Pressure Position [Right Arm] Semi-fowlers Semi-fowlers Pulse Oximetry 94 93 Oxygen Delivery Method Oxymask Oxymask Oxygen Flow Rate 5 5 Sepsis Recent Fever Within 48 Hours Sepsis New/Unexplained Change in Mental Status Sepsis Action Taken by Nursing Oxygen Flow Rate - Titration Pulse Oximetry Post Tiitration Home Medications Current Medication List: was personally reviewed by me Laboratory Data Attestation: I reviewed the patient's lab results. 11/13/24 21:58 11/13/24 21:58 Lab Results 11/13/24 11/13/24 11/13/24 Range/Units 21:19 21:58 23:50 WBC 4.85 (4.8-10.8) K/ul RBC 4.67 L (4.70-6.10) M/uL Hgb 13.2 L (14.0-18.0) g/dl Hct 38.1 L (42.0-52.0) % MCV 81.6 (80.0-100.0) fL MCH 28.3 (25.0-34.0) pg MCHC 34.6 (32.0-36.0) g/dL RDW Std Deviation 44.4 (36.4-46.3) fL RDW Coeff of Chantal 15.1 H (11.5-14.5) % Plt Count 229 (130-400) K/uL MPV 10.0 (9.4-12.4) fL Immature Gran % (Auto) 0.2 % Neut % (Auto) 80.8 % Lymph % (Auto) 6.6 % Eaton % (Auto) 12.0 % Eos % (Auto) 0.0 % Baso % (Auto) 0.4 % Neut # (Auto) 3.92 (1.40-6.50) K/uL Lymph # (Auto) 0.32 L (1.20-3.40) K/uL Eaton # (Auto) 0.58 (0.11-0.59) K/uL Eos # (Auto) 0.00 (0.00-0.50) K/uL Baso # (Auto) 0.02 (0.00-0.20) K/uL Immature Gran # (Auto) 0.01 (0.01-0.20) K/uL PT 10.7 (9.0-12.0) Seconds INR 1.0 (0.9-1.1) APTT 33 H (21-31) Seconds PTT Ratio 1.2 VBG pH 7.48 H (7.36-7.41) VBG pCO2 35 L (38-50) mmHg VBG pO2 22 mmHg VBG HCO3 26 mmol/L VBG O2 Saturation < 60.0 % VBG Base Excess 2.8 mEq/L Sodium 127 L (136-145) mmol/L Potassium 3.7 (3.5-5.1) mmol/L Chloride 90 L (98-107) mmol/L Carbon Dioxide 24 (21-32) mmol/L Anion Gap 13 H (3-11) BUN 29 H (6-23) mg/dl Creatinine 1.07 (0.6-1.4) mg/dl Est Cr Clr Drug Dosing 47.7 ml/min eGFR 67.58 BUN/Creatinine Ratio 27.1 H (10-20) Glucose 120 H (70-99(Fasting)) mg/dl Lactate 2.2 H* 1.9 (0.4-2.0) mmol/L Calcium 8.6 (8.6-10.3) mg/dl Magnesium 1.8 (1.7-2.4) mg/dl Total Bilirubin 0.7 (0.2-1.0) mg/dl Direct Bilirubin 0.1 (0-0.2) mg/dl AST 21 (13-39) U/L ALT 19 (7-52) U/L Alkaline Phosphatase 81 (34-104) U/L Troponin I High Sens 15.7 (0-20) pg/ml Total Protein 6.3 (6.0-8.3) gm/dl Albumin 3.7 (3.4-5.0) gm/dl Procalcitonin 0.65 H (0-0.5) ng/ml SARS-CoV-2 (PCR) NEGATIVE (Negative) Influenza Type A (PCR) Negative (Neg) Influenza Type B (PCR) Negative (Neg) RSV (RT-PCR) Negative (Neg) Administered Medications Vancomycin HCl 1,500 mg/ (Sodium Chloride) 530 mls @ 200 mls/hr IV NOW STA Stop: 11/14/24 01:12 Last Admin: 11/13/24 23:15 Dose: 200 mls/hr Documented By: IDD Discontinued Medications Albuterol (Albut/Ipratrop 3mg/0.5mg Neb 3 Ml Vial) 3 ml NEB NOW STA; Protocol Stop: 11/13/24 22:47 Last Admin: 11/13/24 22:58 Dose: 3 ml Documented By: NRB Sodium Chloride (Nss) 1,000 mls @ 999 mls/hr IV .Q1H1M ONE Stop: 11/13/24 23:27 Last Infusion: 11/14/24 00:30 Dose: Infused Documented By: Admin: 11/13/24 22:43 Dose: 999 mls/hr Documented By: NRB Ceftriaxone Sodium (Rocephin) 2,000 mg in 50 mls @ 100 mls/hr IV NOW STA Stop: 11/13/24 22:56 Last Infusion: 11/13/24 23:40 Dose: Infused Documented By: Admin: 11/13/24 22:43 Dose: 100 mls/hr Documented By: NRB Sodium Chloride (Nss) 1,000 mls @ 999 mls/hr IV .Q1H1M ONE Stop: 11/14/24 00:09 Last Admin: 11/14/24 00:30 Dose: 999 mls/hr Documented By: KAMRYN Methylprednisolone (Methylprednisolone 125 Mg/2 Ml Vial) 125 mg IV NOW STA Stop: 11/13/24 23:21 Last Admin: 11/14/24 00:29 Dose: 125 mg Documented By: KAMRYN Imaging Data Attestation: I personally reviewed and interpreted this imaging study as follows: My Impression: X-ray was obtained in the emergency department. My interpretation is bilateral lower lobe infiltrates, air is no free air, final report pending. Discharge Plan Visit Data Chief Complaint: Shortness of Breath/Dyspnea Stated Complaint: SHORTNESS OF BREATH, FEVER ED Provider: Hu Morin Discharge Problem: Pneumonia, COPD (chronic obstructive pulmonary disease), Acute hypoxemic respiratory failure, Right lower lobe pneumonia, Weakness Patient Disposition: Being Evaluated by Hospitalist Forms Stand Alone Forms: My [facility] Prescriptions Prescriptions: No Action (DME) Wheeled Walker Misc See Rx Instructions .Route Qty: 1 0RF Rx Instructions: Rollator walker with hand brakes and seat (DME) Portable Oxygen Misc See Rx Instructions .Route Qty: 1 0RF Rx Instructions: As directed/ 2.5 LPM cholecalciferol (vitamin D3) 1,000 unit (25 mcg) tablet 2,000 units PO QAM acetaminophen [Tylenol Extra Strength] 500 mg Tablet 500 mg PO Q6H PRN (Reason: Pain) furosemide 20 mg tablet See Rx Instructions .ROUTE .COMPLEX Rx Instructions: 20 mg orally ;take his lasix on Wednesday, Wed, , Wed. Hold lasix on ,,. check weight daily. take lasix on ,W,F if weight goes up 2lbs overnight or more than 5 pounds from his current baseline. diclofenac sodium [Voltaren Arthritis Pain] 1 % Gel 2 g EXT BID PRN (Reason: pain) Qty: 100 0RF metoprolol succinate 25 mg tablet extended release 24 hr 25 mg PO PM Qty: 30 0RF ipratropium-albuterol 0.5 mg-3 mg(2.5 mg base)/3 mL solution for nebulization 3 ml NEB QID PRN (Reason: Shortness Of Breath Or Wheezing) Qty: 90 0RF aspirin 81 mg Tablet,Delayed Release (Dr/Ec) 81 mg PO QAM Qty: 30 0RF tamsulosin 0.4 mg capsule 0.4 mg PO QAM Qty: 90 3RF gabapentin 300 mg capsule 300 mg PO BID PRN (Reason: pain) Qty: 60 5RF Arnuity Ellipta 100 mcg/actuation blister with device 1 inh inhalation DAILY Qty: 30 11RF Referrals Referrals: Corby Zuniga DO [Primary Care Provider] - Discharge Problem: Pneumonia Qualifiers: Pneumonia type: due to unspecified organism Laterality: unspecified laterality Lung location: unspecified part of lung Qualified Code(s): J18.9 - Pneumonia, unspecified organism COPD (chronic obstructive pulmonary disease) Qualifiers: COPD type: unspecified COPD Qualified Code(s): J44.9 - Chronic obstructive pulmonary disease, unspecified Right lower lobe pneumonia Qualifiers: Pneumonia type: due to unspecified organism Qualified Code(s): J18.9 - Pneumonia, unspecified organism
[2024-11-13 22:09] LABS: Base Excess VBG 2.8 mEq/L; HCO3 VBG 26 mmol/L; Oxygen Saturation VBG < 60.0 %; PCO2 VBG 35 mmHg (38-50); PO2 VBG 22 mmHg; pH VBG 7.48 (7.36-7.41)
[2024-11-13 22:13] LABS: Basophils # (auto) 0.02 K/uL (0.00-0.20); Basophils % (auto) 0.4 %; Hematocrit (blood only) 38.1 % (42.0-52.0); Hemoglobin 13.2 g/dl (14.0-18.0); Immature Granulocytes # (auto) 0.01 K/uL (0.01-0.20); Immature Granulocytes % (auto) 0.2 %; Lymphocytes # (auto) 0.32 K/uL (1.20-3.40); Lymphocytes % (auto) 6.6 %; Mean Corpuscular Hemoglobin 28.3 pg (25.0-34.0); Mean Corpuscular Hgb Conc 34.6 g/dL (32.0-36.0); Mean Corpuscular Volume 81.6 fL (80.0-100.0); Monocytes # (auto) 0.58 K/uL (0.11-0.59); Neutrophils # (auto) 3.92 K/uL (1.40-6.50); Neutrophils % (auto) 80.8 %; Platelet Count 229 K/uL (130-400); RDW Coefficient of Variation 15.1 % (11.5-14.5); RDW Standard Deviation 44.4 fL (36.4-46.3); Red Blood Count 4.67 M/uL (4.70-6.10); White Blood Count 4.85 K/ul (4.8-10.8)
[2024-11-13] MEDS ORDERED: VANCOMYCIN CONSULT ACTIVE PRN (22:27)
[2024-11-13] MEDS ORDERED: VANCOMYCIN HCL 1,400 MG in SODIUM CHLORIDE 0.9% 500 ML IV ONE (22:27)
[2024-11-13 22:29] LABS: Albumin Level 3.7 gm/dl (3.4-5.0); BUN Creatinine Ratio 27.1 (10-20); Bilirubin Direct 0.1 mg/dl (0-0.2); Bilirubin,Total 0.7 mg/dl (0.2-1.0); Calcium 8.6 mg/dl (8.6-10.3); Creatinine Clr Calc Pharmacy 47.7 ml/min; Magnesium 1.8 mg/dl (1.7-2.4); Potassium 3.7 mmol/L (3.5-5.1); Total Protein 6.3 gm/dl (6.0-8.3)
[2024-11-13 22:35] LABS: Troponin I High Sensitivity 15.7 pg/ml (0-20)
[2024-11-13 22:40] LABS: Partial Thromboplastin Ratio 1.2; Partial Thromboplastin Time 33 Seconds (21-31); Prothrombin Time 10.7 Seconds (9.0-12.0)
[2024-11-13] MEDS: cefTRIAXone SODIUM 2,000 MG/50 ML BAG IV STA (22:43)
[2024-11-13] MEDS: SODIUM CHLORIDE 0.9% 1,000 ML IV ONE (22:43)
[2024-11-13 22:47] LABS: Influenza A virus by PCR Negative (Neg); Influenza B virus by PCR Negative (Neg); RSV by PCR Negative (Neg); SARS CoV2 RNA(COVID-19) Ceph NEGATIVE (Negative)
[2024-11-13] MEDS: ALBUT/IPRATROP 3MG/0.5MG NEB 3 ML VIAL NEB STA (22:58)
[2024-11-13] MEDS: VANCOMYCIN HCL 1,500 MG in SODIUM CHLORIDE 0.9% 500 ML IV STA (23:15)
[2024-11-13] MEDS ORDERED: ALBUT/IPRATROP 3MG/0.5MG NEB 3 ML VIAL NEB PRN (23:26)
--- NOTE | 2024-11-13 23:32 | History & Physical Report ---
Date of Service November 13, 2024 Assessment & Plan (1) Acute hypoxemic respiratory failure: (2) Right lower lobe pneumonia: (3) HCAP (healthcare-associated pneumonia): (4) COPD exacerbation: (5) Hyponatremia: Plan Acute respiratory failure with hypoxia/right lower lobe HCAP/COPD exacerbation- Recent admission from 10/21-11/05/2024 which grew Moraxella catarrhalis and strep pneumoniae pneumonia He was treated with IV Zosyn, then followed up with Augmentin 875 twice daily x 7 days during that admission Placed on vancomycin IV per pharmacokinetic monitoring Cefepime 2 g IV every 12 hours Robitussin 200 mL p.o. 4 times daily Duonebs every 4 hours while awake and every 2 hours when necessary. Give Solu-Medrol 125 mg IV now, then 40 mg IV every 8 hours Presently on oxime mask, titrate to goal 92% pulse ox COVID, flu and RSV testing negative Hyponatremia- Sodium 127 on admission Likely a function of decreased oral intake Status post 1 L normal saline in the ED Repeat laboratories in the a.m. BPH- Continue tamsulosin Monitor urine output CODE STATUS: DNR/DNI History of Present Illness Chief Complaint: The patient presents to the emergency department with personal-mcc due to concerns regarding worsening difficulty breathing, confusion, low-grade fever, and decreased oral intake over the past few days. The patient did receive 2 nebulizer treatments en route to the hospital, with some improvement in symptoms. Primary Care Provider: Corby Zuniga DO The patient is a 84-year-old male with a past medical history including COPD, Graves' disease, lung cancer stage III, CKD stage III, cardiomyopathy, large B- cell lymphoma, mixed conductive and sensorineural hearing loss. His most recent admitted to [facility] from 10/21-11/05/2024 for right middle lobe and right lower lobe pneumonia with sputum culture growing Moraxella and strep pneumoniae. He was treated with IV Zosyn, and then finished admission with 7 days of Augmentin 8 as an 5 mg twice daily. Patient reports that he did have some improvement post hospitalization, but never returned back to normal, and has developed more shortness of breath as noted over past couple days. The patient is somewhat confused, and dyspneic, able to contribute to ROS in HPI some extent, but is also somewhat limited. Allergies Allergy/AdvReac Type Severity Reaction Status Date / Time No Known Allergies Allergy Verified 10/21/24 16:55 Home Medications Medication Instructions Recorded Confirmed Type cholecalciferol (vitamin D3) 25 2,000 units PO QAM 08/23/19 10/21/24 History mcg (1,000 unit) tablet Wheeled Walker #1 ea 07/01/23 10/21/24 Rx acetaminophen 500 mg tablet 500 mg PO Q6H PRN Pain 10/20/23 10/21/24 History (Tylenol Extra Strength) furosemide 20 mg tablet See Rx Instructions .Route .COMPLEX 04/12/24 10/21/24 History Portable Oxygen #1 ea 05/08/24 10/21/24 Rx aspirin 81 mg tablet,delayed 81 mg PO QAM #30 tabs 11/02/24 Rx release diclofenac sodium 1 % topical gel 2 g EXT BID PRN pain #100 grams 11/02/24 Rx (Voltaren Arthritis Pain) fluticasone furoate 100 1 inh inhalation DAILY #30 ea 11/02/24 Rx mcg/actuation blister powder for inhalation (Arnuity Ellipta) gabapentin 300 mg capsule 300 mg PO BID PRN pain #60 caps 11/02/24 Rx ipratropium 0.5 mg-albuterol 3 mg 3 ml NEB QID PRN Shortness Of 11/02/24 Rx (2.5 mg base)/3 mL nebulization Breath Or Wheezing #90 mL soln metoprolol succinate 25 mg 25 mg PO PM #30 tabs 11/02/24 Rx tablet,extended release 24 hr tamsulosin 0.4 mg capsule 0.4 mg PO QAM #90 caps 11/02/24 Rx Past Med/Surg History Problem List (Updated 11/14/24 @ 03:44 by Leonard Browne MD) COPD exacerbation HCAP (healthcare-associated pneumonia) Pneumonia (Acute) Tachycardia Acute diastolic CHF (congestive heart failure) Elevated transaminase level Pneumonia Acute dehydration (Acute) Weakness (Acute) Right lower lobe pneumonia (Acute) Acute hypoxemic respiratory failure (Acute) COPD (chronic obstructive pulmonary disease) (Acute) COPD (chronic obstructive pulmonary disease) Acute respiratory failure with hypoxia Rhabdomyolysis Sepsis Brennon's thyroiditis Graves disease Physical debility Decubital ulcer H/O pleural effusion Palliative care by specialist Advanced care planning/counseling discussion Cancer related pain Dyspnea and respiratory abnormalities Weakness generalized Falls frequently Right knee pain Knee pain Elevated blood sugar Adenocarcinoma of lung, stage 3 Hemothorax, postoperative Anemia Chronic kidney disease with active medical management without dialysis, stage 3 (moderate) Chronic kidney disease GI bleeding Emphysema/COPD Cor pulmonale Pulmonary hypertension Elevated liver enzymes Right heart failure Right middle lobe pneumonia (Acute) Hyperthyroidism Abnormal chest CT Ventricular tachycardia Cardiomyopathy Hyponatremia Hypoxia (Acute) Elevated troponin Vitamin D deficiency Elevated TSH Postural dizziness with near syncope Cervical spondylosis Large B-cell lymphoma Stage 2 chronic kidney disease Positive colorectal cancer screening using Cologuard test Mixed conductive and sensorineural hearing loss (Acute) Postherpetic neuralgia (Chronic) HTN (hypertension) (Chronic) Medical History Pleural effusion Acute kidney injury Acute hypoxemic respiratory failure Hypertension Sensorineural hearing loss (SNHL) of both ears Cor pulmonale Pulmonary hypertension Pulmonary nodule RLL Chronic kidney disease History of shingles takes gabapentin for pain Hyperthyroidism Emphysema/COPD Lymphoma (~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 Surgical History History of nasal surgery (~2014) due to CA Hx of esophagogastroduodenoscopy Hx of colonoscopy H/O varicose vein ligation Family History Father , Age 91 Renal failure Mother Breast cancer Denies family history of Ovarian cancer Prostate cancer Myocardial infarction Colorectal cancer Social History Smoking Status: Former smoker Tobacco Type: Cigarettes Age Started Using Tobacco: 18; Age Quit Using Tobacco: 61; Cigarettes Per Day: 1 PPD; Second Hand Exposure: No; Do You Dip or Chew Tobacco: No; Hx Alcohol Use: No Hx Substance Use: No Preferred Language: Bhutanese Communication Ability: Effective Visual Impairment: No Limitations Hearing Ability: Hard of Hearing Manager Loan Required: No Beliefs That Will Affect Care: None marital status: Current Living Situation: Spouse current occupational status: retired How many Children do You have: 1 Feels Safe at Home: Yes Childhood Exposure to Second-Hand Smoke: No Diet: regular caffeine: Yes Dental Care, Regularly: No Physical Activity Frequency: Does not Exercise Seatbelt Use: always Sunscreen Use: No Do you think of yourself as: straight/heterosexual Gender Identity: Male Assistive Devices: Oxygen - at Night and Wheelchair Review of Systems Review of Systems: Review of systems as above, is somewhat limited as noted. Patient had been doing somewhat better since discharge, but never returned to baseline, and has since worsened again. Physical Exam Physical Exam: The patient is awake, intermittently confused, dyspneic at rest, normocephalic and atraumatic, lying in bed and in mild acute respiratory distress. HEENT--PERRL, EOMI, mucous membranes and oropharynx dry. Neck--supple. No JVD. No bruits. Thyroid normal, trachea midline, no adenopathy. Heart--normal S1 and S2. No murmurs, rubs or gallops Lungs--coarse breath sounds right middle and lower lobe, with scattered wheezes throughout. Mild respiratory distress and accessory muscle use. Abdomen--normal bowel sounds and soft. Nontender. Nondistended, no hernias or masses, no organomegaly. Extremities--no cyanosis or clubbing. No edema. Dermatologic--normal skin turgor, normal color, no abnormal lymph nodes, no rash. Neurologic--cranial nerves II through XII grossly intact. Rheumatologic--normal range of motion. Psychiatric--mildly anxious Results & Data Results & Data Vital Signs (Past 12 Hours) Vital Signs Temp Pulse Pulse Resp BP BP Pulse Ox 11/13/24 23:15 105 H 18 105/70 94 11/13/24 22:06 92 11/13/24 21:40 92 11/13/24 21:24 112 H 11/13/24 21:23 87 L 11/13/24 21:23 37.2 C 106 H 22 127/97 94 O2 Del Method O2 Flow Rate 11/13/24 23:15 Oxymask 5 11/13/24 22:06 Oxymask 5 11/13/24 21:40 Nasal Cannula 3 11/13/24 21:24 11/13/24 21:23 Nasal Cannula 0 11/13/24 21:23 Nasal Cannula 3 Laboratory Results Laboratory Results WBC 4.85 K/ul (4.8-10.8) 11/13/24 21:58 RBC 4.67 M/uL (4.70-6.10) L 11/13/24 21:58 Hgb 13.2 g/dl (14.0-18.0) L 11/13/24 21:58 Hct 38.1 % (42.0-52.0) L 11/13/24 21:58 MCV 81.6 fL (80.0-100.0) 11/13/24 21:58 MCH 28.3 pg (25.0-34.0) 11/13/24 21:58 MCHC 34.6 g/dL (32.0-36.0) 11/13/24 21:58 RDW Std Deviation 44.4 fL (36.4-46.3) 11/13/24 21:58 RDW Coeff of Chantal 15.1 % (11.5-14.5) H 11/13/24 21:58 Plt Count 229 K/uL (130-400) 11/13/24 21:58 MPV 10.0 fL (9.4-12.4) 11/13/24 21:58 Immature Gran % (Auto) 0.2 % 11/13/24 21:58 Neut % (Auto) 80.8 % 11/13/24 21:58 Lymph % (Auto) 6.6 % 11/13/24 21:58 [place] % (Auto) 12.0 % 11/13/24 21:58 Eos % (Auto) 0.0 % 11/13/24 21:58 Baso % (Auto) 0.4 % 11/13/24 21:58 Neut # (Auto) 3.92 K/uL (1.40-6.50) 11/13/24 21:58 Lymph # (Auto) 0.32 K/uL (1.20-3.40) L 11/13/24 21:58 [place] # (Auto) 0.58 K/uL (0.11-0.59) 11/13/24 21:58 Eos # (Auto) 0.00 K/uL (0.00-0.50) 11/13/24 21:58 Baso # (Auto) 0.02 K/uL (0.00-0.20) 11/13/24 21:58 Immature Gran # (Auto) 0.01 K/uL (0.01-0.20) 11/13/24 21:58 PT 10.7 Seconds (9.0-12.0) 11/13/24 21:58 INR 1.0 (0.9-1.1) 11/13/24 21:58 APTT 33 Seconds (21-31) H 11/13/24 21:58 PTT Ratio 1.2 11/13/24 21:58 VBG pH 7.48 (7.36-7.41) H 11/13/24 21:58 VBG pCO2 35 mmHg (38-50) L 11/13/24 21:58 VBG pO2 22 mmHg 11/13/24 21:58 VBG HCO3 26 mmol/L 11/13/24 21:58 VBG O2 Saturation < 60.0 % 11/13/24 21:58 VBG Base Excess 2.8 mEq/L 11/13/24 21:58 Sodium 127 mmol/L (136-145) L 11/13/24 21:58 Potassium 3.7 mmol/L (3.5-5.1) 11/13/24 21:58 Chloride 90 mmol/L (98-107) L 11/13/24 21:58 Carbon Dioxide 24 mmol/L (21-32) 11/13/24 21:58 Anion Gap 13 (3-11) H 11/13/24 21:58 BUN 29 mg/dl (6-23) H 11/13/24 21:58 Creatinine 1.07 mg/dl (0.6-1.4) 11/13/24 21:58 Est Cr Clr Drug Dosing 47.7 ml/min 11/13/24 21:58 eGFR 67.58 11/13/24 21:58 BUN/Creatinine Ratio 27.1 (10-20) H 11/13/24 21:58 Glucose 120 mg/dl (70-99(Fasting)) H 11/13/24 21:58 Lactate 1.9 mmol/L (0.4-2.0) 11/13/24 23:50 Calcium 8.6 mg/dl (8.6-10.3) 11/13/24 21:58 Magnesium 1.8 mg/dl (1.7-2.4) 11/13/24 21:58 Total Bilirubin 0.7 mg/dl (0.2-1.0) 11/13/24 21:58 Direct Bilirubin 0.1 mg/dl (0-0.2) 11/13/24 21:58 AST 21 U/L (13-39) 11/13/24 21:58 ALT 19 U/L (7-52) 11/13/24 21:58 Alkaline Phosphatase 81 U/L (34-104) 11/13/24 21:58 Troponin I High Sens 15.7 pg/ml (0-20) 11/13/24 21:58 Total Protein 6.3 gm/dl (6.0-8.3) 11/13/24 21:58 Albumin 3.7 gm/dl (3.4-5.0) 11/13/24 21:58 Procalcitonin 0.65 ng/ml (0-0.5) H 11/13/24 21:58 Urine Color Yellow 11/14/24 Unknown Urine Appearance Clear (Clear) 11/14/24 Unknown Urine pH 5.0 (4.5-7.5) 11/14/24 Unknown Ur Specific [place] 1.013 (1.000-1.030) 11/14/24 Unknown Urine Protein Negative (Negative) 11/14/24 Unknown Urine Glucose (UA) Negative (Negative) 11/14/24 Unknown Urine Ketones Negative (Negative) 11/14/24 Unknown Urine Blood 2+ (Negative) H 11/14/24 Unknown Urine Nitrite Negative (Negative) 11/14/24 Unknown Urine Bilirubin Negative (Negative) 11/14/24 Unknown Urine Urobilinogen Negative (Negative) 11/14/24 Unknown Ur Leukocyte Esterase Negative (Negative) 11/14/24 Unknown Urine WBC (Auto) 0-5 /hpf (0-5) 11/14/24 Unknown Urine RBC (Auto) >20 /hpf (0-2) H 11/14/24 Unknown U Hyaline Cast (Auto) 0-2 /lpf (0-2) 11/14/24 Unknown U Epithel Cells (Auto) 0-2 /hpf (0-2) 11/14/24 Unknown Urine Bacteria (Auto) None Seen (None Seen) 11/14/24 Unknown SARS-CoV-2 (PCR) NEGATIVE (Negative) 11/13/24 21:19 Influenza Type A (PCR) Negative (Neg) 11/13/24 21:19 Influenza Type B (PCR) Negative (Neg) 11/13/24 21:19 RSV (RT-PCR) Negative (Neg) 11/13/24 21:19 Impressions Chest X-Ray 11/13/24 21:40 CR Exam(s): XR CXR 1 VIEW EXAM: XR Chest, 1 View CLINICAL HISTORY: Reason for exam: Sepsis. TECHNIQUE: Frontal view of the chest. COMPARISON: No relevant prior studies available. FINDINGS: Lungs: Moderate to heavy peribronchial thickening of the right central and lower lobe bronchi with right lower lobe infiltrate. Pleural space: Unremarkable. No pneumothorax. Heart: Unremarkable. No cardiomegaly. Mediastinum: Unremarkable. Normal mediastinal contour. Bones/joints: Diffuse osteopenia throughout the visualized bones. No acute fracture. IMPRESSION: Right lower lobe infiltrate. Communications: Verify Receipt Electronically signed by: Deann Ocampo MD 11/14/24 01:20 AM Code Status & VTE Plan Code Status DNR/DNI VTE Prophylaxis Plan VTE Prophylaxis will be ordered: Yes PG Care Time/CCT Total # of Minutes Spent Total Time Spent with Patient: Total time spent is greater than 50% in coordination of care (as documented) at patient's floor/unit and/or counseling patient: Coding Level of Care Code 75357 INT INP/OBS CARE 3/75MIN Diagnoses Acute hypoxemic respiratory failure J96.01 Right lower lobe pneumonia J18.9 Pneumonia type: due to unspecified organism HCAP (healthcare-associated pneumonia) J18.9 COPD exacerbation J44.1 Hyponatremia E87.1 (2) Right lower lobe pneumonia Pneumonia type: due to unspecified organism Qualified Code(s): J18.9 - Pneumonia, unspecified organism
[2024-11-14] MEDS: methylPREDNISolone 125 MG/2 ML VIAL IV STA (00:29)
[2024-11-14] MEDS: SODIUM CHLORIDE 0.9% 1,000 ML IV ONE (00:30)
--- NOTE | 2024-11-14 01:21 | XRay Report ---
Exam(s): XR CXR 1 VIEW EXAM: XR Chest, 1 View CLINICAL HISTORY: Reason for exam: Sepsis. TECHNIQUE: Frontal view of the chest. COMPARISON: No relevant prior studies available. FINDINGS: Lungs: Moderate to heavy peribronchial thickening of the right central and lower lobe bronchi with right lower lobe infiltrate. Pleural space: Unremarkable. No pneumothorax. Heart: Unremarkable. No cardiomegaly. Mediastinum: Unremarkable. Normal mediastinal contour. Bones/joints: Diffuse osteopenia throughout the visualized bones. No acute fracture. IMPRESSION: Right lower lobe infiltrate. Communications: Verify Receipt Electronically signed by: Deann Ocampo MD 11/14/24 01:20 AM
[2024-11-14] MEDS ORDERED: ONDANSETRON INJ 2 MG/ML 2 ML VIAL IV PRN (01:40)
[2024-11-14] MEDS ORDERED: VANCOMYCIN CONSULT ACTIVE PRN (01:40)
[2024-11-14] MEDS ORDERED: ACETAMINOPHEN 325 MG TAB PO PRN (01:40)
--- OUTSIDE RECORDS SUMMARY | 2024-11-14 02:47 | External Medical Summary | Summary of Care ---
Author Name Unknown Organization [facility] Address [address] [place] [address] Phone [phone] Care Team Providers Care Tapper Bit Name Role Phone JilljaimejulesCorby ward Primary Care Provi gerda Reason for Visit * Reason Onset Date Comments Skilled Visit 11/09/2024 Encounter Details Date Type Department Care Team ([facility] st Contact Info) Description 11/09/2024 10:30 AM [facility] Longterm Visit [facility], [address] [place] [address] Genevieve Hobbs PA-C [address] [place] [address] [place] [address] Acute cough*; COPD, severe (HCC); History of pneumonia Allergies No known active allergiesdocumented as of this encounter (statuses as of 11/09/2024) Medications Aspirin 81 MG Tablet Take 1 Tablet by mouth in the morning. Active Acetaminophen 500 MG Oral Tablet (Tylenol) Take 1 Tablet by mouth every 6 hours as needed for Pain. Active Vitamin D3 50 MCG (1999 UT) Oral Capsule Take 1 Capsule by mouth in the morning. Active oxygen IN GAS Use as directed. Active Arnuity Ellipta 100 MCG/ACT Inhalation Aerosol Powder Breath Activated Inhale 1 Puff by mouth in the morning. Rinse mouth after use. Active Furosemide 20 MG Oral Tablet (Lasix) Take 1 Tablet by mouth in the morning. Active methIMAzole 5 MG Oral Tablet (Tapazole) Take 1 Tablet by mouth in the morning. with food.. 05/09/202 4 Active Gabapentin 300 MG Oral Capsule (Neurontin) Take 1 Capsule by mouth 2 times a day as needed for Pain. Active Ipratropium-Alb uterol 0.5-2.5 (3) MG/3ML Inhalation Solution (Duoneb) Inhale 3 mL via nebulizer every 4 hours as needed for Shortness of Breath. 180 mL 2 Active Tamsulosin HCl 0.4 MG Oral Capsule (Flomax) Take 1 Capsule by mouth at bedtime. Active Metoprolol Succinate ER 25 MG Oral Tablet Extended Release 24 Hour (Toprol XL) Take 1 Tablet by mouth in the morning. Active Diclofenac Sodium 1 % External Gel (Voltaren) Apply topically to affected area. 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 Postherpetic neuralgia 11/07/2024 Chronic diastolic congestive heart failure 11/07 Cardiomyopathy 05/24/2024 Stage 3 chronic kidney disease 03/30/2024 Primary pulmonary hypertension 03/30/2024 Adenocarcinoma of right lung 03/30/2024 Overview (03/30/2024): S/p CT guided biopsy Suspect at least stage 3a (T2b, N2, M0) Unable to fully assess mediastinal lymph nodes as pulmonary htn prohibitive risk for anesthesia Assessment & Plan (05/24/2024 8:35 AM EDT): Oncology f/u 05/26 No evidence of metastatic disease noted on recent brain MRI Recent thoracentesis- right pleural fluid cytology--> negative for malignancy Assessment & Plan (03/30/2024 4:08 PM EDT): Oncology appt next week Plans to start chemo No evidence of metastatic disease noted on recent brain MRI 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 Hyperthyroidism 03/30/2024 Right heart failure 03/30/2024 Assessment & Plan (05/24/2024 8:36 AM EDT): Continue lasix 20mg daily Encouraged leg elevation for swelling Assessment & Plan (03/30/2024 4:03 PM EDT): Continue lasix 20mg daily Encouraged leg elevation for swelling History of lymphoma 10/09/2019 Encounter for antineoplastic chemotherapy 2014 LYMPHOMAS NEC MULT 06/28/2006 RENAL & URETERAL DIS NOS 06/28/2006 documented as of this encounter (statuses as of 11/09/2024) Resolved Problems Problem Noted Date Diagnosed Date Resolved Date DNR (do not resuscitate) 03/30/2024 Post herpetic neuralgia 01/26/2020 05/0 07/2024 ADVANCE DIRECTIVE INFORMATION 10/06/2007 09/25/2024 Overview (10/06/2007): No, Advance Directive brochure given to patient. documented as of this encounter (statuses as of 11/09/2024) Social History Tobacco Use Types Packs/Day Years [...] the money to buy more. Never true 06/27/20 24 Within the past 12 months, t he food you bought just didn't last and you didn't have money to get more. Never true 06/27/2024 Childcare Answer Date Recorded Do you feel overwhelmed with taking care of a child, family member or friend? No 06/27/2024 Does your family need help f inding childcare? (Household - for ages 0-17 years) Not on file 06/27/2024 Clothing Answer Date Recorded Have you been unable to get clothing when it was really needed? No 06/27/2024 Is your family able to get c lothes or diapers when needed? (Household - for ages 0-17 years) Not on file 06/27/2024 Personal Safety Answer Date Recorded Do you feel unsafe or have concerns for your saf ety? No 06/27/2024 Do you have concerns for you r family's safety? (Household - for ages 0-17 years) Not on file 06/27/2024 Utilities Answer Date Recorded Do you have trouble paying y our heating, water, or electric bill? No 06/27/2024 Is your family able to pay t he heat, water, or electric bill? (Household - for ages 0-17 years) Not on file 06/27/2024 Does your family have access to good internet? (Household - for ages 0-17 years) Not on file 06/27/2024 Employment Status Answer Date Recorded Are you unemployed or without regular income? No 06/27/2024 Does the household have a re lar source of income? (Household - for ages 0-17 years) Not on file 06/27/2024 Social Connections Answer Date Recorded How often do you feel lonely or isolated from th ose around you? Never 06/27/2024 Financial Resource Strain Answer Date R ecorded Do you have any trouble payi ng for your medications, or do you think you might in the future? No 06/27/2024 Does your family have troubl e paying for medicine? (Household - for ages 0-17 years) Not on file 06/27/2024 Transportation Needs Answer Date Record ed Do you have trouble getting a ride to medical visits or work? (Adult - for ages 18 years and over) Not on file 06/27/2024 Does your family have a hard time getting a ride to doctors visits? (Household - for ages 0-17 years) Not on file 06/27/2024 Has lack of transportation k ept you from medical appointments, meetings, work, or from getting things needed for daily living? Check all that apply. No 06/27/2024 Do you (or your family) have trouble finding or paying for a ride (transportation)? (Household - for ages 0-17 years) Not on file 06/27/2024 Housing Stability Answer Date Recorded Do you currently live in a s helter or have no steady place to sleep at night? No 06/27/2024 Do you think you are at risk of becoming homeless? (Adult - for ages 18 years and over) Not on file 06/27/2024 Does your family worry about paying for your home or becoming homeless? (Household - for ages 0-17 years) Not on file 0 06/27/2024 Are you homeless or worried that you might be in the future? No 06/27/2024 Are you (or your family) jorge eless or worried that you might be in the future? (Household - for ages 0-17 years) Not on file Food Insecurity Answer Date Recorded Do you need food for this week? No 06/27/2024 Are you able to get enough f ood for your family? (Household - for ages 0-17 years) Not on file 06/27/2024 Does your family need food t his week? (Household - for ages 0-17 years) Not on file 06/27/2024 Do you always have enough fo od for your family? (Household - for ages 0-17 years) Not on file 06/27/2024 Sex and Gender Information Value Date Recorded Sex Assigned at Not on file Legal Sex Male 6:25 AM EST Gender Identity Not on file Sexual Orientation Not on file documented as of this encounter Last Filed Vital Signs Vital Sign Reading Time Taken Comments Blood Pressure 126/76 11/09/2024 5:11 PM EST Pulse 55 11/09/2024 5:11 PM EST Temperature 36.4 C (97.6 F) 11/09/2024 5:11 PM ES T Respiratory Rate 18 11/09/2024 5:11 PM EST Oxygen Saturation 98% 11/09/2024 5:11 PM EST on O2 Inhaled Oxygen Concentration - - Weight - - Height - - Body Mass Index - - documented in this encounter Plan of Treatment Health Maintenance Due Date Last Done Comments Pneumococcal Vaccine: 65+ Years (1 of 2 - PCV) 1946 Depression Screening 1950 Albumin/Creatinine Ratio 1956 Alpha-1 Antitrypsin 1956 CKD PHOS USE SMARTSET 47248 1956 DTap/Tdap Vaccines (1 - Tdap) 1957 COVID-19 Vaccine (2 - Moderna risk series) 10/26/2023 09/28/2023 *COPD SEVERITY VERIFIED BY PFT 04/01/2024 Influenza Vaccine (FLU shot) (#1) 2024 O2 ASSESSMENT COMPLETED IN PAST YEAR FOR COPD 11/03/2025 11/03/2024 CKD HGB USE SMARTSET 97101 11/06/202511/06, 11/06/2024, 06/04/2023, Additional history exists Zoster Vaccines Completed 02/26/2021, 10/29/2020 HPV (Gardasil) Vaccine Aged Out No lo nger eligible based on patient's age to complete this topic Hepatitis B Vaccine Aged Out No longe r eligible based on patient's age to complete this topic MENINGOCOCCAL (MENACTRA/MENVEO) Aged Out No longer eligible based on patient's age to complete this topic documented as of this encounter Medical Devices Implanted Type Area Global Compensation Analyst Device Identifier Shelf Expiration Date Model / Serial / Lot Bard Powerport Single Mercedes Implanted:Qty: 1 on 07/24/2015 by Malina Moreno MD at [facility] Left: Chest CR BARD : ACCESS SYSTEMS 11/23/2016 [id number] / / [id number] documented as of this encounter Visit Diagnoses [...] Advanced care planning/counseling discussion Other specified counseling Adenocarcinoma of right lung (HCC)- Primary Pulmonary emphysema, unspecified emphysema type (HCC) Cardiomyopathy, unspecified type (HCC) Chronic right-sided heart failure (HCC) Congestive heart failure, unspecified Primary pulmonary hypertension (HCC) Primary pulmonary hypertension Advanced care planning/counseling discussion Other specified counseling Acute cough- Primary COPD, severe (HCC) Chronic airway obstruction, not elsewhere classified History of pneumonia Personal history of pneumonia (recurrent) documented in this encounter Care Teams Tapper Bit Relationship Specialty Start Date End Date Corby Zuniga DO [address] [place] [address] [place] [id number] PCP - General Family Medicine 11/02/24 documented as of this encounter
--- OUTSIDE RECORDS SUMMARY | 2024-11-14 02:47 | External Medical Summary | Summary of Care ---
Author Name Unknown Organization [facility] Address [address] [place] [address] Phone [phone] Care Team Providers Care Cane Furniture Maker Name Role Phone Corby Zuniga Primary Care Provi gerda Encounter Details Date Type Department Care Team (Late st Contact Info) Description 11/09/2024 Population Health External Data Unspecified Department Allergies No known active allergiesdocumented as of this encounter (statuses as of 11/09/2024) Medications Aspirin 81 MG Tablet Take 1 Tablet by mouth in the morning. Active Acetaminophen 500 MG Oral Tablet (Tylenol) Take 1 Tablet by mouth every 6 hours as needed for Pain. Active Vitamin D3 50 MCG (2000 UT) Oral Capsule Take 1 Capsule by mouth in the morning. Active oxygen IN GAS Use as directed. Active Arnuity Ellipta 100 MCG/ACT Inhalation Aerosol Powder Breath Activated Inhale 1 Puff by mouth in the morning. Rinse mouth after use. Active Furosemide 20 MG Oral Tablet (Lasix) Take 1 Tablet by mouth in the morning. 4 Active methIMAzole 5 MG Oral Tablet (Tapazole) Take 1 Tablet by mouth in the morning. with food.. 4 Active Gabapentin 300 MG Oral Capsule (Neurontin) Take 1 Capsule by mouth 2 times a day as needed for Pain. 4 Active Ipratropium-Alb uterol 0.5-2.5 (3) MG/3ML Inhalation Solution (Duoneb) Inhale 3 mL via nebulizer every 4 hours as needed for Shortness of Breath. 180 mL 2 4 Active Tamsulosin HCl 0.4 MG Oral Capsule [...] as of this encounter Plan of Treatment Health Maintenance Due Date Last Done Comments Pneumococcal Vaccine: 65+ Years (1 of 2 - PCV) 1944 Depression Screening 1950 Albumin/Creatinine Ratio 1956 Alpha-1 Antitrypsin 1956 CKD PHOS USE SMARTSET 16616 1956 DTap/Tdap Vaccines (1 - Tdap) 1957 COVID-19 Vaccine (2 - Moderna risk series) 10/26/2023 09/28/2023 *COPD SEVERITY VERIFIED BY PFT 04/01/2024 Influenza Vaccine (FLU shot) (#1) 2024 O2 ASSESSMENT COMPLETED IN PAST YEAR FOR COPD 11/03/2025 11/03/2024 CKD HGB USE SMARTSET 95619 11/06/202511/06, 11/06/2024, 06/04/2023, Additional history exists Zoster [...] this encounter Medical Devices Implanted Type Area Guest Services Lead Device Identifier Shelf Expiration Date Model / Serial / Lot Bard Powerport Single Mercedes Implanted:Qty: 1 on 07/24/2015 by Malina Moreno MD at OR [facility] Left: Chest CR BARD : ACCESS SYSTEMS 11/23/2016 [id number] / / [id number] documented as of this encounter Care Teams Cane Furniture Maker Relationship Specialty Start Date End Date Corby Zuniga DO [address] [place], [place] [address]JOSE malcolm [phone] PCP - General Family Medicine 11/02/24 documented as of this encounter
--- OUTSIDE RECORDS SUMMARY | 2024-11-14 02:48 | External Medical Summary | Summary of Care ---
Author Name Unknown Organization [facility] Address [address] [place] [address] Phone [phone] Care Team Providers Care Wax Room Supervisor Name Role Phone JilljaimejulesCorby ward Primary Care Provi gerda Encounter Details Date Type Department Care Team (Late st Contact Info) Description 11/06/2024 Orders Only Lab Mobile Phlebotomy [facility] [address] [place] [address] Genevieve Hobbs PA-C [address] [place] [address] CKD (chronic kidney disease), symptom management only*; Hx of sepsis Allergies No known active allergiesdocumented as of this encounter (statuses as of 11/06/2024) Medications Aspirin 81 MG Tablet Take 1 [...] by mouth at bedtime. Active Metoprolol Succinate 25 MG Oral Capsule ER 24 Hour Sprinkle Take by mouth. Activ e Metoprolol Succinate ER 25 MG Oral Tablet Extended Release 24 Hour (Toprol XL) Take 1 Tablet by mouth in the morning. Active Diclofenac Sodium 1 % External Gel (Voltaren) Apply topically to affected area. Apply to affected area, 2 gm per application, twice daily as needed Active documented as of this encounter (statuses as of 11/06/2024) Active Problems Problem Noted Date Diagnosed Date Cardiomyopathy 05/24/2024 Stage 3 chronic kidney disease [...] as of this encounter (statuses as of 11/06/2024) Resolved Problems Problem Noted Date Diagnosed Date Resolved Date Post herpetic neuralgia 01/26/2020 05/0 07/2024 ADVANCE DIRECTIVE INFORMATION 10/06/2007 09/25/2024 Overview (10/06/2007): No, Advance Directive brochure given to patient. documented as of this encounter (statuses as of 11/06/2024) Social History Tobacco Use Types Packs/Day Years [...] No 06/27/2024 Does the household have a veterans affairs [facility] healthcare systemr source of income? (Household - for ages [...] as of this encounter Plan of Treatment Pending Results Name Type Priority Associated Diagnoses Date /Time BASIC METABOLIC PANEL Lab Routine Hx of sepsis CKD (chronic kidney disease), symptom management only 11/06/2024 8:37 AM EST CBC WITH WBC DIFFERENTIAL Lab Routine Hx of sepsis CKD (chronic kidney disease), symptom management only 11/06/2024 8:37 AM EST Scheduled Orders Name Type Priority Associated Diagnoses Orde r Schedule BASIC METABOLIC PANEL Lab Routine Hx of sepsis CKD (chronic kidney disease), symptom management only Expected: 11/06/2024, Expires: 11/06/2025 CBC WITH WBC DIFFERENTIAL Lab Routine Hx of sepsis CKD (chronic kidney disease), symptom management only Expected: 11/06/2024, Expires: 11/06/2025 Health Maintenance Due Date Last Done Comments Pneumococcal Vaccine: 65+ Years (1 of 2 - PCV) 1946 Depression Screening 1950 Albumin/Creatinine Ratio 1956 Alpha-1 Antitrypsin 1956 CKD PHOS USE SMARTSET 18273 1956 DTap/Tdap Vaccines (1 - Tdap) 1957 COVID-19 Vaccine (2 - Moderna risk series) 10/26/2023 09/28/2023 *COPD SEVERITY VERIFIED BY PFT 04/01/2024 CKD HGB USE SMARTSET 78427 06/04/202406/04, 05/31/2023, 05/28/2023, Additional history exists Influenza Vaccine (FLU shot) (#1) 2024 O2 ASSESSMENT COMPLETED IN PAST YEAR FOR COPD 11/03/2025 11/03/2024 Zoster Vaccines Completed 02/26/2021, 10/29/2020 HPV (Gardasil) [...] this encounter Medical Devices Implanted Type Area Optical Effects Layout Person Device Identifier Shelf Expiration Date Model / Serial / Lot Bard Powerport Single Mercedes Implanted:Qty: 1 on 07/24/2015 by Malina Moreno MD at OR [facility] Left: Chest CR BARD : ACCESS SYSTEMS 11/23/2016 [id number] / / [id number] documented as of this encounter Visit Diagnoses [...] Advanced care planning/counseling discussion Other specified counseling CKD (chronic kidney disease), symptom management only- Primary Chronic kidney disease, unspecified Hx of sepsis Personal history of other infectious and parasitic disease documented in this encounter Care Teams Wax Room Supervisor Relationship Specialty Start Date End Date Corby Zuniga DO [address] [place] [address] [place] [id number] PCP - General Family Medicine 11/02/24 documented as of this encounter
--- OUTSIDE RECORDS SUMMARY | 2024-11-14 02:48 | External Medical Summary ---
Author Name Unknown Address Unknown Organization [facility] [address] [place] [id number] Laboratory Report Ordering Provider Test Date Status [place] 11/06/2024 08:37:32 Final Observation Date Value Abnormality Reference (Units ) Status Nucleated erythrocytes/100 leukocytes [Ratio] in Blood by Automated count 11/06/2024 08:37:32 Final Giant platelets [Presence] in Blood by Light microscopy 11/06/2024 08:37:32 Present Abnormal None Seen Final Performing Location [facility] [place] [id number]
--- OUTSIDE RECORDS SUMMARY | 2024-11-14 02:48 | External Medical Summary ---
Author Name Unknown Address Unknown Organization [facility] [address] [place] [id number] Laboratory Report Ordering Provider Test Date Status [place] 11/06/2024 08:37:32 Final Observation Date Value Abnormality Reference (Units ) Status SYNC LEUKOCYTES IN BLOOD BY AUTOMATED COUNT 11/06/2024 08:37:32 4.84 4.00-10.80 (K/uL) Final Segs 11/06/2024 08:37:32 54.6 40.0-75.0 (%) Final Lymphs % 11/06/2024 08:37:32 23.6 18.0-42.0 (%) Final Monos 11/06/2024 08:37:32 14.3 Above high normal 1.0-11.0 (%) Final Eosinophils 11/06/2024 08:37:32 5.2 0.0-6.0 (%) Final Basos 11/06/2024 08:37:32 2.3 Above high normal 0.0-2.0 (%) Final Absolute Segs 11/06/2024 08:37:32 2.65 1.80-7.70 (K/uL) Final Lymphs, absolute 11/06/2024 08:37:32 1.14 1.00-4.80 (K/ul) Final Monos, Abs 11/06/2024 08:37:32 0.69 0.00-1.10 (K/uL) Final Eos, Abs 11/06/2024 08:37:32 0.25 0.00-0.70 (K/uL) Final Basos, Abs 11/06/2024 08:37:32 0.11 0.00-0.20 (K/uL) Final Performing Location [facility] [place] [id number]
--- OUTSIDE RECORDS SUMMARY | 2024-11-14 02:48 | External Medical Summary ---
Author Name Unknown Address Unknown Organization [facility] [address] [place] [id number] Laboratory Report Ordering Provider Test Date Status [place] 11/06/2024 08:37:32 Final Observation Date Value Abnormality Reference (Units ) Status WBC, Total 11/06/2024 08:37:32 4.84 4.00-10.8 0 (K/uL) Final RBC 11/06/2024 08:37:32 4.30 4.50-5.25 (M/uL) Final Hemoglobin 11/06/2024 08:37:32 12.1 Below low normal 14 .0-16.8 (g/dL) Final HCT 11/06/2024 08:37:32 36.9 Below low normal 40. 0-48.4 (%) Final MCV 11/06/2024 08:37:32 85.8 82.0-99.5 (fL) Final MCH 11/06/2024 08:37:32 28.1 27.0-34.0 (pg) Final MCHC 11/06/2024 08:37:32 32.8 32.0-36.0 (g/dL) Final RDW 11/06/2024 08:37:32 14.5 11.5-15.5 (%) Final Platelets 11/06/2024 08:37:32 274 140-400 (K /uL) Final MPV 11/06/2024 08:37:32 10.3 6.6-11.1 ( fL) Final Performing Location [facility] [employer] [address] [place] [id number]
--- OUTSIDE RECORDS SUMMARY | 2024-11-14 02:48 | External Medical Summary | Summary of Care ---
Author Name Unknown Organization [facility] Address [address] [place] [address] Phone [phone] Care Team Providers Care Ramp Agent Name Role Phone JilljaimejulesCorby ward Primary Care Provi gerda Reason for Visit * Reason Onset Date Comments Skilled Visit 11/02/2024 Encounter Details Date Type Department Care Team (Late st Contact Info) Description 11/02/2024 11:30 AM [facility] Visit [facility], [address] [place] [address] Genevieve Hobbs PA-C [address] [place] [address] [place] [id number] Acute respiratory failure with hypoxia (HCC)*; Pneumonia of right middle lobe due to infectious organism; Pneumonia of right lower lobe due to infectious organism; Traumatic rhabdomyolysis, subsequent encounter; History of sepsis; Acute on chronic right-sided heart failure (HCC); Stage 3a chronic kidney disease (HCC); Hyperthyroidism; Adenocarcinoma of right lung (HCC); History of lymphoma; HTN, goal below 140/90; Tachycardia Allergies No known active allergiesdocumented as of this encounter (statuses as of 11/02/2024) Medications Aspirin 81 MG Tablet Take 1 [...] as of this encounter (statuses as of 11/02/2024) Active Problems Problem Noted Date Diagnosed Date [...] as of this encounter (statuses as of 11/02/2024) Resolved Problems Problem Noted Date Diagnosed Date Resolved Date Post herpetic neuralgia 01/26/2020 05/0 07/2024 ADVANCE DIRECTIVE INFORMATION 10/06/2007 09/25/2024 Overview (10/06/2007): No, Advance Directive brochure given to patient. documented as of this encounter (statuses as of 11/02/2024) Social History Tobacco Use Types Packs/Day Years [...] 06/27/2024 Does the household have a re gular source of income? (Household - for ages [...] as of this encounter Progress Notes * Genevieve Hobbs PA-C - 11/02/2024 11:30 AM EST ON-SERVICE NOTE TRANSITION EVENT: Type: SNF admission Date: November 02 Code Status: No Code Name: Sohan Gaytan Date of : 1940 This note pertains to care provided at [facility]. Please see facility medical record for original note. This note is not to be edited or addended in [facility]. Editing or addending needs to occur in the facilities medical record. S: Sohan Gaytan had been admitted to [facility] from [facility] for convalesence, PT, and OT. Recently admitted to [facility] because of a fall and was transferred here and admitted on 11/02/2024. 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 In the ER, WBC elevated to 18.63, hgb 14.4, Na low at 131, K 5.1, creat 1.6, TSH <0.010 with normal free T4, negative respiratory pathogen testing, normal lactate and elevated procalcitonin to 3.4 with CK elevated to 14,163. CXR showed right pleural effusion, x ray left hip negative for fracture, sacrum/coccyx x ray negative for fracture, CT chest abdomen pelvis negative for PE, enlarged mediastinal lymph nodes unchanged from prior, right upper lobe spiculated nodule measuring 0.5 cm, emphysema, right middle and lower lobe infiltrates. He was begun on methylprednisolone, ceftriaxone and azithromycin. He was admitted for ongoing care of pneumonia/sepsis/rhabdomyolysis. He was seen by palliative care to discuss goals of care, patient desired continued life-prolonging measures, however did change code status to DNR/DNI. Sputum culture grew moraxella and strep pneumoniae. Antibiotics were adjusted and serial imaging showed some improvement. He was diuresed for acute on chronic HF. He was restarted on methimazole 5 mg daily due to undetectable TSH and tachycardia/frequent ectopy.He was started on metoprolol succinate for rate control. Pertinent labs 11/02/24: hgb 12.2, WBC 5.54, plt 225, 11/12/24: Na 133, K 4.4, creat 0.89. He has now transitioned to this facility for rehab. He reports that he lives with his , who suffers dementia. He states that he primarily utilizes a walker or wheelchair for mobility in the home,no longer drives, and his stepson lives nearby and helps with transportation and household tasks. He plans to return home, when able. He denies current dyspnea, chest pain, dizziness, headache, fever, chills, nausea, vomiting, diarrhea, dysuria, hematuria, back pain, leg edema. He is currently on 4 lpm supplemental O2, but states he does not usually wear oxygen all the time at home. 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 Review of patient's allergies indicates: No Known Allergies Social History Tobacco Use Smoking status: Former Current packs/day: 0.00 Average packs/day: 1 pack/day for 40.0 years (40.0 ttl pk-yrs) Types: Cigarettes Start date: 03/20/1965 Quit date: 03/20/2005 Years since quittin.6 Smokeless tobacco: Never Substance Use Topics Alcohol use: Yes Alcohol/week: 7.0 standard drinks of alcohol Types: 7 12 oz of beer per week Comment: 2-3 beers per day Vaping/E-Cigarette Use Vaping/E-Cigarette Substances Vaping/E-Cigarette Devices Past Surgical History: Procedure Laterality Date BX LYMPH NODE-DEEP CERV 07/12/2006 Dr. Mancini [facility]? varicous veins removed from right leg INSER TUNN ACC DEV;5 YRS/OLDER Left 07/24/2015 INSERT TUNNELED CENTRAL VENOUS ACCESS WITH SUBQ PORT performed by Malina Moreno MD at [facility] PROCEDURE - GENERAL Left 02/18/[address]stephen Helton REMOVE CATARACT, INSERT LENS PROSTH 11/22/2000 Cataract Removal;Dr. Field Family History Problem Relation Name Age of Onset Cancer Mother breast cancer Diabetes Father Family Status Relation Status Mo at age 71? breast cancer with mets Fa at age 91 kidney failure Sis Alive Bro Alive Paulino Alive Review of Systems: Per HPI ADL skills: dependent Ambulates with walker OBJECTIVE: General: alert, no distress, and reclined in bed, chronically ill appearing male, nasal O2 in place Head: Normocephalic Eye Exam: conjunctiva are pink and non-injected, sclera clear Oropharynx: lips, buccal mucosa, and tongue normal and mucous membranes are moist Heart: regular rate & rhythm Lungs: chest symmetric with normal AP diameter, no chest deformities noted, no chest wall tenderness, coarse sounds heard, worse on left, breathing appears unlabored Abdomen: abdomen soft, non-tender, normal bowel sounds, no masses or organomegaly, and no rebound or guarding Extremities: less than 2 second capillary refill, no joint deformities, effusion, or inflammation, no edema Neuro Exam: alert & oriented x 2-3 with fluent speech Skin: pale, warm, dry ASSESSMENT: Acute respiratory failure with hypoxia (HCC) (Primary) Pneumonia of right middle lobe due to infectious organism Pneumonia of right lower lobe due to infectious organism Repeat CXR in 4 weeks Currently on 4 lpm O2, pt reports he does not use O2 continuously at home. Wean O2 if able Traumatic rhabdomyolysis, subsequent encounter PT and OT History of sepsis Abx complete PT and OT CBCD next week Acute on chronic right-sided heart failure (HCC) Continue lasix 20 mg daily (appears he takes 20 mg every other day at home) Follow daily weights BMP next week Stage 3a chronic kidney disease (HCC) BMP next week Hyperthyroidism Continue methimazole 5 mg daily TSHR in 4 weeks, follows with endocrinology Continue metoprolol succinate for HR control Adenocarcinoma of right lung (HCC) History of lymphoma No treatment plan in place that the present time, appears management is palliative per recent hospital notes HTN, goal below 140/90 Tachycardia Newly started on metoprolol succinate 25 mg daily, monitor pressures/pulses PLAN: 1. Continue present medication(s): 2. Admission orders, medications, labs, hospital records and care plan reviewed. 3. Continue current treatment plan as , Bank Advisor consult, Physical Therapy, Occupational Therapy, and Speech Therapy ordered. 4. Care plan reviewed. 5. Advance Directives were discussed: The patient is a DNR 6. Assisted Home Treatment Given: Diuretic PO lasix, Lab Draw as above, and Radiology Follow up 1-2 days and as needed 120 total minutes were spent in this visit. This total time includes pre-visit chart review, obtaining / reviewing separately obtained medical history, and performing the medically appropriate history and exam. It also includes patient / family education and counseling, placing the appropriate orders, placing referrals and communicating with other medical providers, documenting clinical information in the EHR, interpreting / communicating results, and coordinating patient care. documented in this encounter Plan of Treatment Health Maintenance Due Date Last Done Comments Pneumococcal Vaccine: 65+ Years (1 of 2 - PCV) 1944 Depression Screening 1950 Albumin/Creatinine Ratio 1956 Alpha-1 Antitrypsin 1956 CKD PHOS USE SMARTSET 92374 1956 DTap/Tdap Vaccines (1 - Tdap) 1957 COVID-19 Vaccine (2 - Moderna risk series) 10/26/2023 09/28/2023 *COPD SEVERITY VERIFIED BY PFT 04/01/2024 CKD HGB USE SMARTSET 04562 06/04/202406/04, 05/31/2023, 05/28/2023, Additional history exists Influenza Vaccine (FLU shot) (#1) 2024 O2 ASSESSMENT COMPLETED IN PAST YEAR FOR COPD 07/26/2025 07/26/2024 Zoster Vaccines Completed 02/26/2021, 10/29/2020 HPV (Gardasil) [...] this encounter Medical Devices Implanted Type Area Diesel Engine Engineer Device Identifier Shelf Expiration Date Model / Serial / Lot Bard Powerport Single Mercedes Implanted:Qty: 1 on 07/24/2015 by Malina Moreno MD at [facility] Left: Chest CR BARD : ACCESS SYSTEMS 11/23/2016 [id number] / / [id number] documented as of this encounter Visit Diagnoses [...] care planning/counseling discussion Other specified counseling Acute respiratory failure with hypoxia (HCC)- Primary Acute respiratory failure Pneumonia of right middle lobe due to infectious organism Pneumonia of right lower lobe due to infectious organism Traumatic rhabdomyolysis, subsequent encounter History of sepsis Personal history of other infectious and parasitic disease Acute on chronic right-sided heart failure (HCC) Stage 3a chronic kidney disease (HCC) Hyperthyroidism Thyrotoxicosis without mention of goiter or other cause, without mention of thyrotoxic crisis or storm Adenocarcinoma of right lung (HCC) History of lymphoma Personal history of other lymphatic and hematopoietic neoplasm HTN, goal below 140/90 Unspecified essential hypertension Tachycardia Tachycardia, unspecified documented in this encounter Care Teams Ramp Agent Relationship Specialty Start [place] [address] [place], [place] [address]JOSE malcolm [id number] PCP - General Family Medicine 11/02/24 documented as of this encounter
--- OUTSIDE RECORDS SUMMARY | 2024-11-14 02:48 | External Medical Summary | Summary of Care ---
Author Name Unknown Organization [facility] Address [address] [place] [address] Phone [phone] Care Team Providers Care Fiberglass Ski Maker Name Role Phone JilljaimejulesCorby ward Primary Care Provi gerda Reason for Visit * Reason Onset Date Comments [facility] Visit - Admission 11/07/2024 Encounter Details Date Type Department Care Team (Latest Contact Info) Description 11/07/2024 8:20 AM EST [facility] Visit [address] [place] [address] Cash Morley MD [address] [place] [address] [place] [id number] Pneumonia of right middle lobe due to infectious organism*; Pneumonia of right lower lobe due to infectious organism; Traumatic rhabdomyolysis, subsequent encounter; Adenocarcinoma of right lung (HCC); Pulmonary emphysema, unspecified emphysema type (HCC); Pressure injury of right buttock, stage 2 (HCC); 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 03/30/20 24 Active methIMAzole 5 MG Oral Tablet (Tapazole) Take 1 Tablet by mouth in the morning. with food.. 03/30/20 24 Active Gabapentin 300 MG Oral Capsule (Neurontin) Take 1 Capsule by mouth 2 times a day as needed for Pain. 03/30/20 24 Active Ipratropium-Al buterol 0.5-2.5 (3) MG/3ML Inhalation Solution (Duoneb) Inhale 3 mL via nebulizer every 4 hours as needed for Shortness of Breath. 180 mL 2 03/30/20 24 Active Tamsulosin HCl 0.4 MG Oral Capsule (Flomax) Take 1 Capsule by mouth at bedtime. Active Metoprolol Succinate ER 25 MG Oral Tablet Extended Release 24 Hour (Toprol XL) Take 1 Tablet by mouth in the morning. Active Diclofenac Sodium 1 % External Gel (Voltaren) Apply topically to affected area. Apply to affected area, 2 gm per application, twice daily as needed Active Metoprolol Succinate 25 MG Oral Capsule ER 24 Hour Sprinkle Take by mouth. 024 Discontinued documented as of this encounter (statuses as of 11/07/2024) Active Problems Problem Noted Date Diagnosed Date [...] as of this encounter (statuses as of 11/07/2024) Resolved Problems Problem Noted Date Diagnosed Date Resolved Date DNR (do not resuscitate) 03/30/2024 Post herpetic neuralgia 01/26/2020 05/0 07/2024 ADVANCE DIRECTIVE INFORMATION 10/06/2007 09/25/2024 Overview (10/06/2007): No, Advance Directive brochure given to patient. documented as of this encounter (statuses as of 11/07/2024) Social History Tobacco Use Types Packs/Day Years [...] as of this encounter Progress Notes * Cash Morley MD - 11/07/2024 9:57 AM EST ADMISSION HISTORY and PHYSICAL TRANSITION EVENT: Type: SNF admission Date: November 02 Code Status: Full Code Name: Sohan Gaytan Date of : 1940 This note pertains to care provided at [facility]. Please see facility medical record for original note. This note is not to be edited or addended in [email or web address]. Editing or addending needs to occur in the facilities medical record. S: Sohan Gaytan had been admitted to [facility] from [facility] for PT and OT. Recently admitted to [facility] on 10/21/24 because of sepsis due to right middle and lower lobe pneumonia and rhabdomyolysisand was transferred here and admitted on 11/02/2024. Patient of Dr. Zuniga with PMH of COPD, h/o tobacco use, stage 3 adenocarcinoma of lung, diffuse B-cell lymphoma, stage 3 CKD, hyperthyroidism, pulmonary hypertension, cardiomyopathy, post-herpetic neuralgia, BPH, and right heart failure whopresented to the ED with weakness and fatigue. Patient had apparently had a fall and was found on the floor at home. Patient had been on hospice but revoked hospice to seek inpatient hospital care. Patient was hypotensive with BP of 89/63 and ill appearing on arrival to the ED. In the ED, WBC was elevated at 18.63. H&H was 14.4 and 43.6 with platelets of 284. Sodium was low at 131, chloride was low at 93, and BUN was 32 with creatinine of 1.64. CK was markedly elevated at 14,163, Procalcitonin was elevated at 3.4. Lactate normal at 1.9. Liver tests elevated with AST of 221 and ALT of 76 and normal alk phos of 86. Respiratory biofire was negative. CXR showed slightlyimproved right basilar aeration and right pleural effusion. Left hip/pelvis xrays were negative. Sacrum and coccyx x-ray was negative. CT of the chest/abdomen/pelvis showed findings concerning for right middle and lower lobe pneumonia, unchanged mediastinal lymphadenopathy, right upper lobe spiculated nodule measuring 0.5 cm, uncertain if present on prior CT, and small right pleural effusion. There was a right inguinal hernia containing fat and bowel loops and no evidence of obstruction and moderate prostate gland enlargement. Patient was admitted with sepsis, likely due to pneumonia. He was given ceftriaxone and azithromycin in the ED. Sputum cultures grew Moraxella and Strep pneumo, which was acosta-sensitive. He was treated with a course of Zosyn and changed to Augmentin, which completed 10/28/24. Repeat CXR on 10/27/24 showed some improvement but also showed atelectasis. Patient was noted to stay in his chair much of the day and did not cooperative with getting up. He was recommended to have follow-up CXR in 4-6 weeks, which is ordered. Patient was also felt to be in CHF. Last echo 03/2024 showed normal EF and mild MR. He was diuresed with IV Lasix, which was then discontinued due to elevation in creatinine, which improved to 1.47 after holding Lasix. Patient noted to have negative 5.6 L fluid balance. He was not discharged on Lasix. CK was monitored and returned to normal prior to admission. Patient had been on the floor for hoursprior to admission. His liver tests improved through course of hospitalization and felt to be due to rhabdomyolysis. Patient has been following with pulmonary for his lung cancer. Had been on hospice prior to admission but revoked to pursue treatment in the hospital. Patient was seen by palliative care while admitted and patient noted that he wanted CPR and full treatment but not to be "kept alive with machines."There was a long discussion on how once CPR is performed, an airway needs to obtained through intubation and patient still elected to have CPR. Patient stated on arrival to facility during care plan that he wishes to receive CPR but does not want to be kept long-term on a ventilator. This was discussed again by me with patient today on admission and he voices the same desire to have CPR. Patient h ad already been changed to full code based on these wishes. He was started on metoprolol succinate 25 mg daily and diclofenac gel. No other medication changes were made. Patient was sent on PRN gabapentin for post- herpetic neuralgia and this was made routine on admission. He was noted to have a stage 2 decubitus on right buttock on admission. Wound care was consulted and Calzinc is being applied along with Optifoam. Patient lives at home with his in a trailer. His has dementia. Patient states he gets short of breath with exertion but breathing is fairly stable. He is on oxygen. He states his appetite is good. He denies constipation or trouble urinating. He plans to return home with his . Patient was seen by wound care this morning and had debridement of buttocks wound and treatment changed to cleansing with saline at times of dressing changes and applying Calzinc TID. 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 Acetaminophen 500 MG Oral Tablet (Tylenol) Take 1 Tablet by mouth every 6 hours as needed for Pain. Vitamin D3 50 MCG (2000 UT) Oral Capsule Take 1 Capsule by mouth in the morning. oxygen IN GAS Use as directed. Arnuity Ellipta 100 MCG/ACT Inhalation Aerosol Powder Breath Activated Inhale 1 Puff by mouth in the morning. Rinse mouth after use. Furosemide 20 MG Oral Tablet (Lasix) Take 1 Tablet by mouth in the morning. methIMAzole 5 MG Oral Tablet (Tapazole) Take 1 Tablet by mouth in the morning. with food.. Gabapentin 300 MG Oral Capsule (Neurontin) Take 1 Capsule by mouth 2 times a day as needed for Pain. Ipratropium-Albuterol 0.5-2.5 (3) MG/3ML Inhalation Solution (Duoneb) Inhale 3 mL via nebulizer every 4 hours as needed for Shortness of Breath. 180 mL 2 Tamsulosin HCl 0.4 MG Oral Capsule (Flomax) Take 1 Capsule by mouth at bedtime. Metoprolol Succinate ER 25 MG Oral Tablet Extended Release 24 Hour (Toprol XL) Take 1 Tablet by mouth in the morning. Diclofenac Sodium 1 % External Gel (Voltaren) Apply topically to affected area. Apply to affected area, 2 gm per application, twice daily as needed No current facility-administered medications for this visit. Review of patient's allergies indicates: [...] BX LYMPH NODE-DEEP CERV 07/12/[address] [facility] INFORMATION 1977? varicous veins removed from right leg INSER TUNN ACC DEV;5 YRS/OLDER Left 07/24/2015 INSERT TUNNELED CENTRAL VENOUS ACCESS WITH SUBQ PORT performed by Malina Moreno MD at OR [facility] PROCEDURE - GENERAL Left 02/18/[address]stephen Helton REMOVE CATARACT, INSERT LENS PROSTH 11/22/2000 Cataract Removal;Dr. Field Family History Problem Relation Name Age of Onset Cancer Mother breast cancer Diabetes Father Family Status Relation Status Mo at age 71? breast cancer with mets Fa at age 91 kidney failure Sis Alive Bro Alive Paulino Alive Results for orders placed or performed in visit on 11/06/24 BASIC METABOLIC PANEL Result Value Ref Range BUN 21 (H) 6 - 20 mg/dL CREATININE 1.1 0.6 - 1.2 mg/dL EGFR 63 >=60 mL/min SODIUM 132 (L) 135 - 146 mmol/L POTASSIUM 4.3 3.5 - 5.1 mmol/L CHLORIDE 97 (L) 98 - 107 mmol/L CO2 26 22 - 32 mmol/L ANION GAP 9 7 - 15 mmol/L GLUCOSE 79 70 - 120 mg/dL CALCIUM 8.5 8.4 - 10.2 mg/dL CBC Result Value Ref Range WBC 4.84 4.00 - 10.80 K/uL RBC 4.30 4.50 - 5.25 M/uL HGB 12.1 (L) 14.0 - 16.8 g/dL HCT 36.9 (L) 40.0 - 48.4 % MCV 85.8 82.0 - 99.5 fL MCH 28.1 27.0 - 34.0 pg MCHC 32.8 32.0 - 36.0 g/dL RDW 14.5 11.5 - 15.5 % PLT 274 140 - 400 K/uL MPV 10.3 6.6 - 11.1 fL DIFFERENTIAL, AUTOMATED Result Value Ref Range WBC 4.84 4.00 - 10.80 K/uL Neutrophils % 54.6 40.0 - 75.0 % Lymphocytes % 23.6 18.0 - 42.0 % Monocytes % 14.3 (H) 1.0 - 11.0 % Eosinophils % 5.2 0.0 - 6.0 % Basophils % 2.3 (H) 0.0 - 2.0 % Absolute Neutrophils 2.65 1.80 - 7.70 K/uL Absolute Lymphocytes 1.14 1.00 - 4.80 K/ul Absolute Monocytes 0.69 0.00 - 1.10 K/uL Absolute Eosinophils 0.25 0.00 - 0.70 K/uL Absolute Basophils 0.11 0.00 - 0.20 K/uL DIFFERENTIAL, TECHNOLOGIST REVIEW Result Value Ref Range nRBCs Giant PLTs Present (A) None Seen Review of Systems: Constitutional ROS: No change in weight, No fevers, sweats, or chills, and +weakness/debility Eye ROS: No recent significant change in vision and No eye pain, redness, discharge Ear ROS: No ear pain, No drainage, No tinnitus or vertigo, and No recent change in hearing Nose ROS: No history of frequent colds or sinusitis, No nasal stuffiness, No history of Hay Fever, and No significant epistaxis Mouth/Throat ROS: No bleeding gums, No thrush, or No sore throat Pulmonary ROS: +as per HPI Cardiovascular ROS: No chest pain, No orthopnea, No paroxysmal nocturnal dyspnea, No edema, No palpitations, No syncope, and +CHF with preserved EF Gastrointestinal ROS: No abdominal pain, No change in bowel habits, No significant heartburn, No nausea, vomiting, diarrhea, or constipation, No hematemesis, No blood in stools or black tarry stools,No abdominal bloating or early satiety, and No dysphagia Genito-Urinary Male ROS: No dysuria, No frequency, and +BPH Musculoskeletal/Extremities ROS: +OA Hematologic/Lymphatic ROS: No coagulation disorder, No abnormal bleeding, No chills, and +lung adenocarcinoma and B-cell lymphoma Skin/Integumentary ROS: +stage 2 right buttocks Neurologic ROS: No headaches and No seizures Endocrine ROS: No heat intolerance, No cold intolerance, No excessive thirst or urination, No history of diabetes, and +hyperthyroidism controlled with methimazole Psychiatric ROS: No depression, No anxiety, No psychosis, and has been refusing assistance from staff ADL skills: dependent Ambulates with walker OBJECTIVE: PHYSICAL EXAM: I reviewed the most recent facilities vitals. Refer to vital signs flowsheet in detention chart.General: alert, no distress, and very thin, frail, chronically ill appearing male Head: Normocephalic, No masses, lesions, tenderness or abnormalities Eye Exam: PERRLA, extraocular movements intact, conjunctiva are pink and non- injected, sclera clear Ears: External ears normal Nose: no mucosal erythema, no mucosal edema, no purulent discharge Oropharynx: no exudate, no erythema, lips, buccal mucosa, and tongue normal, and mucous membranes are moist Neck: supple, no adenopathy, no bruits Heart: regular rate & rhythm, no gallops, and distant heart tones Lungs: chest symmetric with normal AP diameter, no chest deformities noted, no chest wall tenderness, coarse sounds heard, decreased breath sounds, scattered rhonchi bilaterally Abdomen: abdomen soft, non-tender, normal bowel sounds, and no masses or organomegaly Extremities: no edema, no clubbing, no cyanosis Neuro Exam: alert & oriented x 3 with fluent speech, no focal motor/sensory deficits Skin: scabbed decubitus of right inner buttocks area without drainage or surrounding erythema ASSESSMENT: Pneumonia of right middle lobe due to infectious organism (Primary)--completed Zosyn/Augmentin course prior to discharge. Scheduled for CXR in facility in 4 weeks. Pneumonia of right lower lobe due to infectious organism--as above Traumatic rhabdomyolysis, subsequent encounter--resolved prior to discharge. Adenocarcinoma of right lung (HCC)--follows with pulmonary and not under active treatment. Was under hospice prior to admission but has revoked this and is now requesting to be full code. Pulmonary emphysema, unspecified emphysema type (HCC)--follows with pulmonary. Continue Arnuity andDuonebs. Pressure injury of right buttock, stage 2 (HCC)--appears to be healing. Seen by Dr. Henderson of woundcare this morning and s/p debridement. Continue local wound care as ordered. 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 S/p chemotherapy and radiation in 2014 Chronic diastolic congestive heart failure (HCC)--was diuresed for acute on chronic CHF while admitted. Continue daily weights. Not currently on Lasix as it caused elevation of creatinine. Stage 3a chronic kidney disease (HCC)--stable. BMP on 11/06/24 with normal creatinine. Primary pulmonary hypertension (HCC)--continue oxygen. Chronic right-sided heart failure (HCC)--continue oxygen. Postherpetic neuralgia--continue gabapentin 300 mg twice daily. Hyperthyroidism--thyroid function tests normal while admitted. Continue methimazole. Follows with endocrinology as outpatient. BPH with obstruction/lower urinary tract symptoms PLAN: 1. Continue present medication(s): Study(ies) ordered: CXR for 4 weeks from admission to follow-up pneumonia. Referral(s) to: Wound care. Already in place. 2. Admission orders, medications, labs, hospital records and care plan reviewed. 3. Health Care Facility Administrator consult, Physical Therapy, Occupational Therapy, and Speech Therapy ordered. 4. Care plan reviewed. 5. Advance Directives were discussed: Full Code 6. [facility] Home Treatment Given: n/a Electronically signed by: Cash Morley MD I spent a total of 40-54 minutes (exact time 52 mins) on the date of service in preparation, delivery, and documentation of the care provided to Sohan Gaytan excluding any time spent in the performance of separately billed services or time spent by another provider/QHP.\\ documented in this encounter Plan of Treatment Health Maintenance Due Date Last Done Comments Pneumococcal Vaccine: 65+ Years (1 of 2 - PCV) 1946 Depression Screening 1950 Albumin/Creatinine Ratio 1956 Alpha-1 Antitrypsin 1956 CKD PHOS USE SMARTSET 97811 1956 DTap/Tdap Vaccines (1 - Tdap) 1957 COVID-19 Vaccine (2 - Moderna risk series) 10/26/2023 09/28/2023 *COPD SEVERITY VERIFIED BY PFT 04/01/2024 Influenza Vaccine (FLU shot) (#1) 2024 O2 ASSESSMENT COMPLETED IN PAST YEAR FOR COPD 11/03/2025 11/03/2024 CKD HGB USE SMARTSET 27825 11/06/202511/06, 11/06/2024, 06/04/2023, Additional history exists Zoster [...] this encounter Medical Devices Implanted Type Area Second Hand Device Identifier Shelf Expiration Date Model / Serial / Lot Bard Powerport Single Mercedes Implanted:Qty: 1 on 07/24/2015 by Malina Moreno MD at OR [facility] Left: Chest CR BARD : ACCESS SYSTEMS 11/23/2016 [id number] / / [id number] documented as of this encounter Visit Diagnoses [...] Advanced care planning/counseling discussion Other specified counseling Pneumonia of right middle lobe due to infectious organism- Primary Pneumonia of right lower lobe due to infectious organism Traumatic rhabdomyolysis, subsequent encounter Adenocarcinoma of right lung (HCC) Pulmonary emphysema, unspecified emphysema type (HCC) Pressure injury of right buttock, stage 2 (HCC) 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) Other malignant lymphomas, unspecified site, extranodal and solid organ sites Chronic diastolic congestive heart failure (HCC) Chronic diastolic heart failure Stage 3a chronic kidney disease (HCC) Primary pulmonary hypertension (HCC) Primary pulmonary hypertension Chronic right-sided heart failure (HCC) Congestive heart failure, unspecified Postherpetic neuralgia Herpes zoster with other nervous system complications Hyperthyroidism Thyrotoxicosis without mention of goiter or other cause, without mention of thyrotoxic crisis or storm BPH with obstruction/lower urinary tract symptoms Hypertrophy of prostate with urinary obstruction and other lower urinary tract symptoms (LUTS) documented in this encounter Care Teams Fiberglass Ski Maker Relationship Specialty Start Date End Date Corby Zuniga DO [address] [place] [address] [place] [address] PCP - General Family Medicine 11/02/24 documented as of this encounter
--- OUTSIDE RECORDS SUMMARY | 2024-11-14 02:48 | External Medical Summary | Summary of Care ---
Author Name Unknown Organization [facility] Address [address] [place] [address] Phone [phone] Care Team Providers Care Training And Development Head Name Role Phone Maximus Garrido MD Primary Care Provider [phone] Reason for Visit * Reason Onset Date Comments [facility]: Screening 10/24/2024 Encounter Details Date Type Department Care Team ([facility] st Contact Info) Description 10/24/2024 Telephone [facility], [facility] [address] [place] [address] Georgette Kwon, HIGH SCHOOL SPECIAL EDUCATION TEACHER [address] [place], [place] [id number] [facility]: Screening Allergies Active Allergy Reactions Criticality Noted Date Comments Nkda 06/28/2006 documented as of this encounter (statuses as of 10/24/2024) Medications Aspirin 81 MG Tablet Take 1 Tablet by mouth in the morning. Active Acetaminophen (TYLENOL) 325 MG CAPS Take by mouth. Activ e Vitamin D3 50 MCG (1999) Oral Capsule Take 1 Capsule by mouth in the morning. Active oxygen IN GAS Use as directed. Active Arnuity Ellipta 100 MCG/ACT Inhalation Aerosol Powder Breath Activated Inhale 1 Puff by mouth in the morning. Rinse mouth after use. Active Furosemide 20 MG Oral Tablet (Lasix) Take 1 Tablet by mouth in the morning. 4 Active methIMAzole 10 MG Oral Tablet Take 1 Tablet by mouth in the morning. with food.. 4 Active Gabapentin 300 MG Oral Capsule (Neurontin) Take 1 Capsule by mouth in the morning and 1 Capsule before bedtime. 4 Active Ipratropium-Alb uterol 0.5-2.5 (3) MG/3ML Inhalation Solution (Duoneb) Inhale 3 mL via nebulizer every 4 hours as needed for Shortness of Breath. 180 mL 2 4 Active documented as of this encounter (statuses as of 10/24/2024) Active Problems Problem Noted Date Diagnosed Date [...] as of this encounter (statuses as of 10/24/2024) Resolved Problems Problem Noted Date Diagnosed Date Resolved Date Post herpetic neuralgia 01/26/2020 05/0 07/2024 ADVANCE DIRECTIVE INFORMATION 10/06/2007 09/25/2024 Overview (10/06/2007): No, Advance Directive brochure given to patient. documented as of this encounter (statuses as of 10/24/2024) Social History Tobacco Use Types Packs/Day Years [...] encounter Miscellaneous Notes * Telephone Encounter - Georgette Kwon LPN - 10/24/2024 12:19 PM EST Sohan Gaytan was referred as a potential candidate for enrollment for [facility]. A review of this chart was completed and: Sohan does not meet criteria for enrollment into [facility]. Referral Source: Monthly Proactive Eligibility List Criteria for Ineligibility: Not Located in Service Area Referring care team was notified via : [employer] communication Patient is located in service area however does not have the multiple chronic conditions needed forGAH enrollment documented in this encounter Plan of Treatment Health Maintenance Due Date Last Done Comments Pneumococcal Vaccine: 65+ Years (1 of 2 - PCV) 1946 Depression Screening 1950 Albumin/Creatinine Ratio 1956 Alpha-1 Antitrypsin 1956 CKD PHOS USE SMARTSET 97554 1956 DTap/Tdap Vaccines (1 - Tdap) 1957 COVID-19 Vaccine (2 - Moderna risk series) 10/26/2023 09/28/2023 *COPD SEVERITY VERIFIED BY PFT 04/01/2024 CKD HGB USE SMARTSET 83160 06/04/202406/04, 05/31/2023, 05/28/2023, Additional history exists Influenza [...] this encounter Medical Devices Implanted Type Area Coke Handling Supervisor Device Identifier Shelf Expiration Date Model / Serial / Lot Bard Powerport Single Mercedes Implanted:Qty: 1 on 07/24/2015 by Malina Moreno MD at OR [facility] Left: Chest CR BARD : ACCESS SYSTEMS 11/23/2016 [id number] / / [id number] documented as of this encounter Care Teams Training And Development Head Relationship Specialty Start Date End Date Maximus Garrido MD [address] [place], [place] [address] PCP - General Pulmonary Diseases 03/22/24 documented as of this encounter
--- OUTSIDE RECORDS SUMMARY | 2024-11-14 02:48 | External Medical Summary | Summary of Care ---
Author Name Unknown Organization [facility] Address [address] [place] [address] Phone [phone] Care Team Providers Care Model Technician Name Role Phone Maximus Garrido MD Primary Care Provider [phone] Encounter Details Date Type Department Care Team ([facility] st Contact Info) Description 10/24/2024 Population Health External Data Unspecified Department Allergies [...] Alpha-1 Antitrypsin 1958 CKD PHOS USE SMARTSET 64072 1958 DTap/Tdap Vaccines (1 - Tdap) 1957 COVID-19 Vaccine (2 - Moderna risk series) 10/26/2023 09/28/2023 *COPD SEVERITY VERIFIED BY PFT 04/01/2024 CKD HGB USE SMARTSET 92655 06/04/202406/04, 05/31/2023, 05/28/2023, Additional history exists Influenza [...] this encounter Medical Devices Implanted Type Area President Mortgage Company Device Identifier Shelf Expiration Date Model / Serial / Lot Bard Powerport Single Mercedes Implanted:Qty: 1 on 07/24/2015 by Malina Moreno MD at OR [facility] Left: Chest CR BARD : ACCESS SYSTEMS 11/23/2016 [id number] / / [id number] documented as of this encounter Care Teams Model Technician Relationship Specialty Start Date End Date Maximus Garrido MD [address] [facility] [address], [place] [address] PCP - General Pulmonary Diseases 03/22/24 documented as of this encounter
--- OUTSIDE RECORDS SUMMARY | 2024-11-14 02:48 | External Medical Summary | Summary of Care ---
Author Name Unknown Organization [facility] Address [address] [place] [address] Phone [phone] Care Team Providers Care Multimedia Project Manager Name Role Phone Maximus Garrido MD Primary Care Provider [phone] Encounter Details Date Type Department Care Team ([facility] st Contact Info) Description 10/25/2024 Population Health External Data Unspecified Department Allergies Active Allergy Reactions Criticality Noted Date Comments Nkda 06/28/2006 documented as of this encounter (statuses as of 10/25/2024) Medications Aspirin 81 MG Tablet Take 1 [...] as of this encounter (statuses as of 10/25/2024) Active Problems Problem Noted Date Diagnosed Date [...] as of this encounter (statuses as of 10/25/2024) Resolved Problems Problem Noted Date Diagnosed Date Resolved Date Post herpetic neuralgia 01/26/2020 05/0 07/2024 ADVANCE DIRECTIVE INFORMATION 10/06/2007 09/25/2024 Overview (10/06/2007): No, Advance Directive brochure given to patient. documented as of this encounter (statuses as of 10/25/2024) Social History Tobacco Use Types Packs/Day Years [...] Alpha-1 Antitrypsin 1958 CKD PHOS USE SMARTSET 17029 1956 DTap/Tdap Vaccines (1 - Tdap) 1957 COVID-19 Vaccine (2 - Moderna risk series) 10/26/2023 09/28/2023 *COPD SEVERITY VERIFIED BY PFT 04/01/2024 CKD HGB USE SMARTSET 52629 06/04/202406/04, 05/31/2023, 05/28/2023, Additional history exists Influenza [...] this encounter Medical Devices Implanted Type Area Admissions Officer Device Identifier Shelf Expiration Date Model / Serial / Lot Bard Powerport Single Mercedes Implanted:Qty: 1 on 07/24/2015 by Malina Moreno MD at OR [facility] Left: Chest CR BARD : ACCESS SYSTEMS 11/23/2016 [id number] / / [id number] documented as of this encounter Care Teams Multimedia Project Manager Relationship Specialty Start Date End Date Maximus Garrido MD [address] [facility] [address], [place] [address] PCP - General Pulmonary Diseases 03/22/24 documented as of this encounter
--- OUTSIDE RECORDS SUMMARY | 2024-11-14 02:48 | External Medical Summary ---
Author Name Unknown Address Unknown Organization K[facility] [address] [place] [id number] Laboratory Report Ordering Provider Test Date Status [place] 11/06/2024 08:37:32 Final Observation Date Value Abnormality Reference (Units ) Status BUN 11/06/2024 08:37:32 21 Above high normal 6-20 (mg/dL) Final Creatinine 11/06/2024 08:37:32 1.1 0.6-1.2 (mg/dL) Final Glomerular filtration rate/1.73 sq M.predicted [Volume Rate/Area] in Serum, Plasma or Blood by Creatinine-based formula (CKD-EPI) 11/06/2024 08:37:32 63 >=60 (mL/min) Final eGFR is calculated based on the CKD-EPI 2020 equation. Sodium 11/06/2024 08:37:32 132 Below low normal 135 -146 (mmol/L) Final Potassium 11/06/2024 08:37:32 4.3 3.5-5.1 (m mol/L) Final Cl 11/06/2024 08:37:32 97 Below low normal 98- 107 (mmol/L) Final CO2 11/06/2024 08:37:32 26 22-32 (mmo l/L) Final Anion gap 11/06/2024 08:37:32 9 7-15 (mmol /L) Final Glucose 11/06/2024 08:37:32 79 70-120 (mg /dL) Final Calcium 11/06/2024 08:37:32 8.5 8.4-10.2 ( mg/dL) Final Performing Location [facility] [address] [place] [id number]
--- OUTSIDE RECORDS SUMMARY | 2024-11-14 02:48 | External Medical Summary | Summary of Care ---
Author Name Unknown Organization [facility] Address [address] [place] [address] Phone [phone] Care Team Providers Care Taper Operator Name Role Phone JilljaimejulesCorby ward Primary Care Provi gerda Reason for Visit * Reason Onset Date Comments Skilled Visit 11/07/2024 Encounter Details Date Type Department Care Team (Late st Contact Info) Description 11/03/2024 8:45 AM EST Senior Care Visit [facility] [place], [address] [place] [address] Genevieve Hobbs PA-C [address] [place] [address] [place] [address] Pressure injury of right buttock, stage 2 (HCC)*; Vasovagal episode; Acute respiratory failure with hypoxia (HCC); Pneumonia of right middle lobe due to infectious organism; Pneumonia of right lower lobe due to infectious organism; History of sepsis; Traumatic rhabdomyolysis, subsequent encounter Allergies No known active allergiesdocumented as of this encounter (statuses as of 11/07/2024) Medications Aspirin 81 MG Tablet Take 1 Tablet by mouth in the morning. Active Acetaminophen 500 MG Oral Tablet (Tylenol) Take 1 Tablet by mouth every 6 hours as needed for Pain. Active Vitamin D3 50 MCG (1999) Oral [...] Sign Reading Time Taken Comments Blood Pressure 118/71 11/03/2024 3:57 PM EST Pulse 72 11/03/2024 3:57 PM EST Temperature 36.7 C (98 F) 11/03/2024 3:57 PM EST Respiratory Rate 18 11/03/2024 3:57 PM EST Oxygen Saturation 96% 11/03/2024 3:57 PM EST on O2 Inhaled Oxygen Concentration - - Weight 69.1 kg (152 lb 6.4 oz) 11/03/2024 3:57 P M EST Height - - Body Mass Index 21.87 07/24/2015 7:14 AM EDT documented in this encounter Plan of Treatment Health Maintenance Due Date Last Done Comments Pneumococcal Vaccine: 65+ Years (1 of 2 - PCV) 1946 Depression Screening 1950 Albumin/Creatinine Ratio 1958 Alpha-1 Antitrypsin 1956 CKD PHOS USE SMARTSET 67879 1956 DTap/Tdap Vaccines (1 - Tdap) 1957 COVID-19 Vaccine (2 - Moderna risk series) 10/26/2023 09/28/2023 *COPD SEVERITY VERIFIED BY PFT 04/01/2024 Influenza Vaccine (FLU shot) (#1) 2024 O2 ASSESSMENT COMPLETED IN PAST YEAR FOR COPD 11/03/2025 11/03/2024 CKD HGB USE SMARTSET 49359 11/06/202511/06, 11/06/2024, 06/04/2023, Additional history exists Zoster [...] this encounter Medical Devices Implanted Type Area Agriculture Inspector Device Identifier Shelf Expiration Date Model / Serial / Lot Bard Powerport Single Mercedes Implanted:Qty: 1 on 07/24/2015 by Malina Moreno MD at OR [facility] Left: Chest CR BARD : ACCESS SYSTEMS 11/23/2016 [id number] / / [id number] documented as of this encounter Visit Diagnoses [...] Advanced care planning/counseling discussion Other specified counseling Pressure injury of right buttock, stage 2 (HCC)- Primary Vasovagal episode Syncope and collapse Acute respiratory failure with hypoxia (HCC) Acute respiratory failure Pneumonia of right middle lobe due to infectious organism Pneumonia of right lower lobe due to infectious organism History of sepsis Personal history of other infectious and parasitic disease Traumatic rhabdomyolysis, subsequent encounter documented in this encounter Care Teams Taper Operator Relationship Specialty Start Date End Date Corby Zuniga DO [address] [place] [address] [place] [address] PCP - General Family Medicine 11/02/24 documented as of this encounter
[2024-11-14 03:02] LABS: Appearance Urine Clear (Clear); Bacteria Urine Automated None Seen (None Seen); Bilirubin Urine Negative (Negative); Blood Urine 2+ (Negative); Cast Urine Automated 0-2 /lpf (0-2); Color Urine Yellow; Epithelial Cell Urine Auto 0-2 /hpf (0-2); Glucose Urine UA Negative (Negative); Ketones Urine Negative (Negative); Leukocyte Esterase Urine Negative (Negative); Nitrite Urine Negative (Negative); Protein Urine Negative (Negative); RBC Urine Automated >20 /hpf (0-2); Specific Gravity Urine 1.013 (1.000-1.030); Urobilinogen Urine Negative (Negative); WBC Urine Automated 0-5 /hpf (0-5)
--- OUTSIDE RECORDS SUMMARY | 2024-11-14 03:16 | External Medical Summary | Summary of Care ---
Author Name Unknown Organization [facility] Address [address] [place] [address] Phone [phone] Care Team Providers Care Sewage Treatment Plant Operator Name Role Phone JilljaimejulesCorby ward Primary Care Provi gerda Reason for Visit * Reason Onset Date Comments Skilled Visit 11/10/2024 Encounter Details Date Type Department Care Team ([facility] st Contact Info) Description 11/10/2024 8:15 AM EST Long Term Visit [facility], [address] [place] [address] Genevieve Hobbs PA-C [address] [place] [address] [place] [address] COPD, severe (HCC)*; History of pneumonia Allergies No known active allergiesdocumented as of this encounter (statuses as of 11/13/2024) Medications Aspirin 81 MG Tablet Take 1 [...] by mouth in the morning. with food.. Active Gabapentin 300 MG Oral Capsule (Neurontin) [...] as of this encounter (statuses as of 11/13/2024) Active Problems Problem Noted Date Diagnosed Date [...] as of this encounter (statuses as of 11/13/2024) Resolved Problems Problem Noted Date Diagnosed Date Resolved Date DNR (do not resuscitate) 03/30/2024 Post herpetic neuralgia 01/26/2020 05/0 07/2024 ADVANCE DIRECTIVE INFORMATION 10/06/2007 09/25/2024 Overview (10/06/2007): No, Advance Directive brochure given to patient. documented as of this encounter (statuses as of 11/13/2024) Social History Tobacco Use Types Packs/Day Years [...] Sign Reading Time Taken Comments Blood Pressure 126/74 11/10/2024 5:30 PM EST Pulse 76 11/10/2024 5:30 PM EST Temperature 36.7 C (98 F) 11/10/2024 5:30 PM EST Respiratory Rate 18 11/10/2024 5:30 PM EST Oxygen Saturation 96% 11/10/2024 5:30 PM EST on O2 Inhaled Oxygen Concentration - - Weight - - Height - - Body Mass Index - - documented in this encounter Plan of Treatment Health Maintenance Due Date Last Done Comments Depression Screening 1950 Albumin/Creatinine Ratio 1956 Alpha-1 Antitrypsin 1956 CKD PHOS USE SMARTSET 16614 1956 DTap/Tdap Vaccines (1 - Tdap) 1957 Pneumococcal Vaccine: 65+ Years (1 of 2 - PCV) 1957 COVID-19 Vaccine (2 - Moderna risk series) 10/26/2023 09/28/2023 *COPD SEVERITY VERIFIED BY PFT 04/01/2024 Influenza Vaccine (FLU shot) (#1) 2024 CKD HGB USE SMARTSET 83573 11/06/202511/06, 11/06/2024, 06/04/2023, Additional history exists O2 ASSESSMENT COMPLETED IN PAST YEAR FOR COPD 11/10/2025 11/10/2024 Zoster Vaccines Completed 02/26/2021, 10/29/2020 HPV (Gardasil) [...] this encounter Medical Devices Implanted Type Area Property Preservation Specialist Device Identifier Shelf Expiration Date Model / Serial / Lot Bard Powerport Single Mercedes Implanted:Qty: 1 on 07/24/2015 by Malina Moreno MD at OR [facility] Left: Chest CR BARD : ACCESS SYSTEMS 11/23/2016 [id number] / / [id number] documented as of this encounter Visit Diagnoses [...] Advanced care planning/counseling discussion Other specified counseling COPD, severe (HCC)- Primary Chronic airway obstruction, not elsewhere classified History of pneumonia Personal history of pneumonia (recurrent) documented in this encounter Care Teams Sewage Treatment Plant Operator Relationship Specialty [place] [address] [place] [address] [place] [address] PCP - General Family Medicine 11/02/24 documented as of this encounter
[2024-11-14] MEDS: CEFEPIME 2000MG 2,000 MG/20 ML SYR IV SCH (03:58)
[2024-11-14] MEDS: VANCOMYCIN HCL 1,250 MG in SODIUM CHLORIDE 0.9% 250 ML IV SCH (06:03)
[2024-11-14 06:19] LABS: Hematocrit (blood only) 35.3 % (42.0-52.0); Hemoglobin 12.1 g/dl (14.0-18.0); Mean Corpuscular Hemoglobin 28.3 pg (25.0-34.0); Mean Corpuscular Hgb Conc 34.3 g/dL (32.0-36.0); Mean Corpuscular Volume 82.7 fL (80.0-100.0); Mean Platelet Volume 10.3 fL (9.4-12.4); Platelet Count 207 K/uL (130-400); RDW Standard Deviation 45.1 fL (36.4-46.3); Red Blood Count 4.27 M/uL (4.70-6.10); White Blood Count 3.72 K/ul (4.8-10.8)
[2024-11-14 06:35] LABS: Albumin Level 3.1 gm/dl (3.4-5.0); BUN Creatinine Ratio 26.1 (10-20); Calcium 7.9 mg/dl (8.6-10.3); Creatinine Clr Calc Pharmacy 55.8 ml/min; Magnesium 1.8 mg/dl (1.7-2.4); Phosphorus 4.3 mg/dl (2.5-4.9); Potassium 3.9 mmol/L (3.5-5.1)
[2024-11-14 06:46] LABS: Basophils # (auto) 0.01 K/uL (0.00-0.20); Basophils % (auto) 0.3 %; Immature Granulocytes # (auto) 0.01 K/uL (0.01-0.20); Immature Granulocytes % (auto) 0.3 %; Lymphocytes # (auto) 0.16 K/uL (1.20-3.40); Lymphocytes % (auto) 4.3 %; Monocytes # (auto) 0.13 K/uL (0.11-0.59); Monocytes % (auto) 3.5 %; Neutrophils # (auto) 3.41 K/uL (1.40-6.50); Neutrophils % (auto) 91.6 %
[2024-11-14] MEDS: ALBUT/IPRATROP 3MG/0.5MG NEB 3 ML VIAL NEB SCH (06:57)
[2024-11-14] MEDS ORDERED: methylPREDNISolone 125 MG/2 ML VIAL IV SCH (07:00)
--- NOTE | 2024-11-14 07:52 | Hospitalist Progress Note ---
Date of Service November 14, 2024 Assessment & Plan (1) COPD exacerbation: (2) HCAP (healthcare-associated pneumonia): (3) Acute diastolic CHF (congestive heart failure): (4) Acute hypoxemic respiratory failure: (5) Right lower lobe pneumonia: (6) Chronic kidney disease with active medical management without dialysis, stage 3 (moderate): (7) Adenocarcinoma of lung, stage 3: (8) Large B-cell lymphoma: Plan Acute respiratory failure with hypoxia/right lower lobe HCAP/COPD exacerbation - Recent admission from 10/21-11/05/2024 which grew Moraxella catarrhalis and strep pneumoniae pneumonia - He was treated with IV Zosyn, then followed up with Augmentin 875 twice daily x 7 days during that admission - Placed on vancomycin IV and cefepime 2g IV in ED - Patient transitioned to cefepime 2g IV alone and is doing well - Duonebs every 4 hours while awake and every 2 hours when necessary - Will transition patient off IV steroid therapy and start oral prednisone - Patient w/o increased oxygen requirements and is stable - Patient likely with worsening dyspnea/cough due to sequela of last pneumonia infection exacerbated by complicated respiratory status - COVID, flu and RSV testing negative Hyponatremia - Sodium 127 on admission - Likely a function of decreased oral intake - Status post 1 L normal saline in the ED - CBC, BMP in AM BPH - Continue tamsulosin - Monitor urine output Admission and Anticipated Discharge Date Admission Date: November 13, 2024 Supervising Physician Co-Signing Physician Notes Attending attestation Pt seen and examined in concert with Dr. Villagran. In agreement with the documented findings as noted in the resident documentation with any exceptions or additions as noted here. Patient reports subjective improvement in presenting shortness of breath and fatigue. Reports no fever, chills, lightheadedness, palpitations, GI complaints. On examination, S1/S2 nl RRR no MCG. Scattered wheeze and rhonchi more noticable on the right lower lobe. Abd NT/ND BS+ve Acute on chronic hypoxic respiratory failure in the setting of COPD, recent pneumonia, lung cancer - negative MRSA nares, so d/c vancomycin. Repeat CT shows improvement in RLL consolidation c/w improvement from previous pneumonia, will continue abx therapy at present and monitor. O2 per protocol, goal range ~92%. Continue solu-medrol and consider PO prednisone tomorrow with ongoing improvement. CKDIII - continue to trend creatinine daily and monitor for changes on current therapy Else see resident documentation as noted. Subjective Sohan Gaytan is a 84 y/o M with a past medical history of COPD, Graves disease, lung cancer stage 3, CKD stage 3, large B-cell lymphoma arriving to the ED from personal detention due to increasing dyspnea, confusion, low fever, and decreased oral intake. Patient was recently admitted to [facility] from 10/21-11/05 due to RML and RLL Moraxella/strep pneumo pneumonia. Today patient was seen at bedside resting comfortably. Patient was off of oxygen and did well for approximately 5 min, then became short of breath and oxygen desaturated to mid 80s. Patient was placed back on 3L of NC and quickly his oxygen increased back to 95%. Patient does endorse a productive cough of dark ruby/brown phlegm. Patient is not in acute distress. Physical Exam Physical Exam: General: patient resting comfortably, NAD, non-toxic in appearance, answers questions appropriately. Skin: warm, dry, intact HEENT: NC/AT, anicteric sclera, conjunctiva without injection, moist mucus m embranes. Heart: +S1/S2, regular, no m/r/g Lungs: equal air entry bilaterally, no rales/rhonchi/wheezes Abd: +BS, soft, NT/ND Ext: warm, no clubbing/cyanosis or edema Neuro: nonfocal,speech intact, no facial droop, moving all extremities. Results & Data Results & Data Vital Signs (Past 12 Hours) Vital Signs Temp Pulse Pulse Pulse Resp BP BP 11/14/24 07:17 36.6 C 73 17 130/74 11/14/24 06:57 66 19 11/14/24 06:23 11/14/24 02:00 11/14/24 02:00 36.8 C 97 H 22 120/71 11/14/24 01:28 95 H 11/14/24 00:53 87 22 118/68 11/14/24 00:00 95 H 18 118/68 11/13/24 23:15 105 H 18 105/70 11/13/24 22:06 11/13/24 21:40 11/13/24 21:24 112 H 11/13/24 21:23 11/13/24 21:23 37.2 C 106 H 22 127/97 Pulse Ox Pulse Ox O2 Del Method O2 Del Method O2 Flow Rate O2 Flow Rate FiO2 11/14/24 07:17 100 Oxymask 4 11/14/24 06:57 96 Oxymask 4 11/14/24 06:23 93 Oxymask 4 11/14/24 02:00 Oxymask 5 11/14/24 02:00 97 Oxymask 5 11/14/24 01:28 11/14/24 00:53 94 Oxymask 5 11/14/24 00:00 93 Oxymask 5 11/13/24 23:15 94 Oxymask 5 11/13/24 22:06 92 Oxymask 5 11/13/24 21:40 92 Nasal Cannula 3 11/13/24 21:24 11/13/24 21:23 87 L Nasal Cannula 0 11/13/24 21:23 94 Nasal Cannula 3 (5) Right lower lobe pneumonia Pneumonia type: due to unspecified organism Qualified Code(s): J18.9 - Pneumonia, unspecified organism
[2024-11-14] MEDS ORDERED: VANCOMYCIN HCL 1,000 MG in SODIUM CHLORIDE 0.9% 250 ML IV SCH (09:00)
[2024-11-14] MEDS: CHOLECALCIFEROL 25 MCG (1000 UNITS) TAB PO SCH (09:08)
[2024-11-14] MEDS: GABAPENTIN 300 MG CAP PO SCH (09:08)
[2024-11-14] MEDS: TAMSULOSIN HCL 0.4 MG CAP PO SCH (09:09)
[2024-11-14] MEDS: ASPIRIN 81 MG ECTAB PO SCH (09:09)
[2024-11-14] MEDS: methylPREDNISolone 40 MG in SYRINGE 0 ML IV SCH (09:10)
[2024-11-14] MEDS: PANTOprazole 40 MG/10 ML SYR IV SCH (09:10)
--- NOTE | 2024-11-14 09:22 | Pharmacy Report ---
Pharmacy PK ABX Note - Date of Service November 14, 2024 - Assessment and Plan Assessment * 84 year old M receiving vancomycin and cefepime for treatment of RLL pneumonia. * Recent admission from 10/21 -11/05 for pneumonia with + sputum culture that grew Moraxella catarrhalis and Streptococcus pneumoniae. He was treated with Zosyn, then Augmentin during that admission. * PMH includes COPD, lymphoma, CKD stage III, and pulmonary hypertension * Blood cultures x 2 from 11/13 are pending; flu, COVID, and RSV (-) Day # 2 of antimicrobial therapy. Plan Vancomycin * Loading dose: 1500 mg IV x 1 * Maintenance dose: 1250 mg IV every 24 hours * Regimen is predicted to achieve target AUC/VADIM of 400-600 mg/L.hr * Random level will be ordered in the next 48-72 hours. Pharmacy will continue to follow and will adjust dose/frequency as necessary. Thank you. Pharmacy has transitioned to AUC monitoring for vancomycin. AUC/VADIM is the preferred PK/PD target and is associated with decreased risk of nephrotoxicity compared to traditional trough targets.
--- NOTE | 2024-11-14 12:49 | CT Scan Report ---
CT OF THE CHEST WITHOUT IV CONTRAST CLINICAL HISTORY: lung CA, recent pneumonia - please compare CTs COMPARISON STUDY: Chest CT October 21, 2024. Chest radiograph November 13, 2024. PET/CT February 01. CT DOSE: 384.96 mGy.cm TECHNIQUE: Axial images of the chest were obtained without IV contrast. Images were reviewed in the axial, sagittal, and coronal planes. IV contrast was not administered for this examination. Automat ed exposure control was utilized for the study. A dose lowering technique was utilized adhering to t he principles of ALARA. FINDINGS: The heart is moderately enlarged. There is no pericardial effusion. Dilatation of the cent ral pulmonary arteries is again noted. There are several mildly enlarged mediastinal lymph nodes. Ind ex right paratracheal lymph node on image 113 of 253 measures 2.3 x 1.4 cm. There is no pneumothorax. Trace bilateral pleural effusions with bilateral pleural thickening are unchanged since CT of [facility] 2023. Emphysema is again noted. A 4.1 cm round subpleural left lower lobe opacity with volume loss remains unchanged. This favors round atelectasis. Extensive right lower lobe airspace opacity is similar to CT of October 21, 2024. Right middle lobe airspace opacity has mildly improved. A 5.3 x 3.5 cm masslike density within the superior segment of the right lower lobe on image [address] is [address] t o CT of October 21, 2024. This may represent the FDG avid lesion shown on prior PET/CT. There is no pneumothorax. No suspicious lesions within the bony thorax are present. Water attenuation left renal lesions favor cysts. IMPRESSION: 1. Extensive right lower lobe airspace opacity, similar to CT of October 21, 2024. Slight improvemen t in right middle lobe opacity. The findings favor pneumonia or aspiration pneumonitis. In the [facility] t clinical clinical setting, post radiation pneumonitis could appear similar. 2. 5.3 x 3.5 cm mass-like density within the superior segment of the right lower lobe, also similar t o prior CT but increased from earlier PET/CT. This is difficult to assess given adjacent airspace opa city however disease progression cannot be excluded and this can be assessed on follow-up exams. 3. No change in trace bilateral pleural effusions with bilateral pleural thickening. 4. Several mildly enlarged mediastinal lymph nodes which may be reactive or neoplastic. 5. No change in a 4.1 cm left lower lobe round opacity with volume loss which favors round atelectasi s. 6. Emphysema. ACT 112: Negative or not required by law. Electronically signed by: Mihir Huynh M.D. 11/14/2024 12:48 PM
--- NOTE | 2024-11-14 16:18 | Electrocardiogram Report ---
Test Reason : Blood Pressure : */* mmHG Vent. Rate : 105 BPM Atrial Rate : 105 BPM P-R Int : 160 ms QRS Dur : 80 ms QT Int : 304 ms P-R-T Axes : 29 -88 19 degrees QTcB Int : 401 ms Sinus tachycardia with Premature supraventricular complexes Low voltage QRS Left anterior fascicular block Poor R wave progression, consider anterior SD vs. lead placement vs. LVH T wave abnormality, consider anterior ischemia Abnormal ECG Confirmed by Samuel Muniz ([id number]) on 11/14/2024 4:18:03 PM Referred By: REFERRED SELF Confirmed By: Samuel Muniz
[2024-11-14] MEDS: METOPROLOL SUCC 25MG EXT REL TAB PO SCH (20:49)
[2024-11-15 06:09] LABS: Hematocrit (blood only) 33.4 % (42.0-52.0); Hemoglobin 11.5 g/dl (14.0-18.0); Mean Corpuscular Hemoglobin 28.6 pg (25.0-34.0); Mean Corpuscular Hgb Conc 34.4 g/dL (32.0-36.0); Mean Corpuscular Volume 83.1 fL (80.0-100.0); Mean Platelet Volume 10.5 fL (9.4-12.4); Platelet Count 211 K/uL (130-400); RDW Standard Deviation 45.2 fL (36.4-46.3); Red Blood Count 4.02 M/uL (4.70-6.10); White Blood Count 5.69 K/ul (4.8-10.8)
[2024-11-15 06:35] LABS: Echinocytes 1+; Immature Granulocytes # (auto) 0.02 K/uL (0.01-0.20); Immature Granulocytes % (auto) 0.4 %; Lymphocytes # (auto) 0.24 K/uL (1.20-3.40); Lymphocytes % (auto) 4.2 %; Monocytes # (auto) 0.29 K/uL (0.11-0.59); Monocytes % (auto) 5.1 %; Neutrophils # (auto) 5.14 K/uL (1.40-6.50); Neutrophils % (auto) 90.3 %
[2024-11-15 06:45] LABS: Albumin Level 2.9 gm/dl (3.4-5.0); BUN Creatinine Ratio 28.4 (10-20); Calcium 8.1 mg/dl (8.6-10.3); Creatinine Clr Calc Pharmacy 58.3 ml/min; Magnesium 1.8 mg/dl (1.7-2.4); Phosphorus 2.7 mg/dl (2.5-4.9)
[2024-11-15] MEDS: guaiFENesin SUGAR FREE 200 MG/10 ML UDC PO PRN (08:14)
[2024-11-15] MEDS: predniSONE 20 MG TAB PO SCH (08:17)
--- NOTE | 2024-11-15 15:48 | Hospitalist Progress Note ---
Date of Service November 15, 2024 Assessment & Plan (1) COPD exacerbation: (2) HCAP (healthcare-associated pneumonia): (3) Acute diastolic CHF (congestive heart failure): (4) Acute hypoxemic respiratory failure: (5) Right lower lobe pneumonia: (6) Chronic kidney disease with active medical management without dialysis, stage 3 (moderate): (7) Adenocarcinoma of lung, stage 3: (8) Large B-cell lymphoma: (9) Hematuria: Plan Acute respiratory failure with hypoxia/right lower lobe HCAP/COPD exacerbation - Recent admission from 10/21-11/05/2024 which grew Moraxella catarrhalis and strep pneumoniae pneumonia - He was treated with IV Zosyn, then followed up with Augmentin 875 twice daily x 7 days during that admission - Patient transitioned to cefepime 2g IV alone - 2 L O2, Duonebs prn, oral Prednisone burst therapy, flutter valve; patient quickly improving - Patient likely with worsening dyspnea/cough due to sequela of last pneumonia infection exacerbated by complicated respiratory status - COVID, flu and RSV testing negative - PT/OT consult and transition to oral abx before d/c Hematuria - 2+ blood in urine without evidence of urinary infection, patient stable/asymptomatic - Patient recommended to receive outpatient cystoscopy and urology referral after PCP visit post d/c Hyponatremia - Sodium 127 on admission - Likely a function of decreased oral intake - Status post 1 L normal saline in the ED - CBC, BMP in AM BPH - Continue tamsulosin - Monitor urine output Admission and Anticipated Discharge Date Admission Date: November 13, 2024 Supervising Physician Co-Signing Physician Notes Attending attestation Pt seen and examined in concert with Dr. Villagran. In agreement with the documented findings as noted in the resident documentation with any exceptions or additions as noted here. Patient reports ongoing improvement in shortness of breath and fatigue. Reports no fever, chills, lightheadedness, palpitations, GI complaints. On examination, S1/S2 nl RRR no MCG. Scattered wheeze and rhonchi more noticeable on the right lower lobe, significantly improved. Abd NT/ND BS+ve Acute on chronic hypoxic respiratory failure in the setting of COPD, recent pneumonia, lung cancer - continue abx therapy at present and monitor, likely to convert to cefpodoxime tomorrow based on Cx. O2 per protocol, goal range ~92%. Transition to PO prednisone CKDIII - continue to trend creatinine daily and monitor for changes on current therapy Else see resident documentation as noted. Subjective Sohan Gaytan is a 84 y/o M with a past medical history of COPD, Graves disease, lung cancer stage 3, CKD stage 3, large B-cell lymphoma arriving to the ED from personal intermediate due to increasing dyspnea, confusion, low fever, and decreased oral intake. Patient was recently admitted to [facility] from 10/21-11/05 due to RML and RLL Moraxella/strep pneumo pneumonia. Today patient was seen at bedside resting comfortably. Patient was off of oxygen and did well for approximately 5 min, then became short of breath and oxygen desaturated to mid 80s. Patient was placed back on 3L of NC and quickly his oxygen increased back to 95%. Patient does endorse a productive cough of dark ruby/brown phlegm. Patient is not in acute distress. Physical Exam Physical Exam: General: patient resting comfortably, NAD, non-toxic in appearance, answers questions appropriately. Skin: warm, dry, intact HEENT: NC/AT, anicteric sclera, conjunctiva without injection, moist mucus membranes. Heart: +S1/S2, regular, no m/r/g Lungs: equal air entry bilaterally, no rales/rhonchi/wheezes Abd: +BS, soft, NT/ND Ext: warm, no clubbing/cyanosis or edema Neuro: nonfocal,speech intact, no facial droop, moving all extremities. Results & Data Results & Data Vital Signs (Past 12 Hours) Vital Signs Temp Pulse Pulse Resp BP Pulse Ox O2 Del Method 11/15/24 15:20 36.5 C 83 19 116/64 94 Nasal Cannula 11/15/24 14:51 94 H 11/15/24 14:38 82 18 94 Nasal Cannula 11/15/24 11:02 36.5 C 91 H 19 131/71 92 Nasal Cannula 11/15/24 10:25 80 18 95 Nasal Cannula 11/15/24 09:00 68 11/15/24 07:46 36.6 C 68 19 145/77 H 97 Nasal Cannula 11/15/24 07:34 84 16 97 Nasal Cannula 11/15/24 07:15 Nasal Cannula O2 Flow Rate 11/15/24 15:20 2 11/15/24 14:51 11/15/24 14:38 2 11/15/24 11:02 2 11/15/24 10:25 2 11/15/24 09:00 11/15/24 07:46 2 11/15/24 07:34 2 11/15/24 07:15 2 Resident Activity Tracking Resident Involvement: Resident Care Provided Care Provided: Adult Hospital Medicine (5) Right lower lobe pneumonia Pneumonia type: due to unspecified organism Qualified Code(s): J18.9 - Pneumonia, unspecified organism
[2024-11-15] MEDS: MAGNESIUM SULFATE / D5W 1 GM/100 ML BAG IV ONE (20:10)
[2024-11-16 05:30] LABS: Hemoglobin 11.5 g/dl (14.0-18.0); Immature Granulocytes # (auto) 0.03 K/uL (0.01-0.20); Immature Granulocytes % (auto) 0.4 %; Lymphocytes # (auto) 0.29 K/uL (1.20-3.40); Mean Corpuscular Hemoglobin 28.2 pg (25.0-34.0); Mean Corpuscular Hgb Conc 33.8 g/dL (32.0-36.0); Mean Corpuscular Volume 83.3 fL (80.0-100.0); Mean Platelet Volume 10.2 fL (9.4-12.4); Monocytes # (auto) 0.56 K/uL (0.11-0.59); Monocytes % (auto) 7.7 %; Neutrophils # (auto) 6.36 K/uL (1.40-6.50); Neutrophils % (auto) 87.9 %; Platelet Count 216 K/uL (130-400); RDW Coefficient of Variation 15.4 % (11.5-14.5); RDW Standard Deviation 46.1 fL (36.4-46.3); Red Blood Count 4.08 M/uL (4.70-6.10); White Blood Count 7.24 K/ul (4.8-10.8)
[2024-11-16 05:43] LABS: BUN Creatinine Ratio 27.7 (10-20); Calcium 7.8 mg/dl (8.6-10.3); Creatinine Clr Calc Pharmacy 50.8 ml/min; Phosphorus 2.4 mg/dl (2.5-4.9); Potassium 4.1 mmol/L (3.5-5.1)
[2024-11-16 07:13] VITALS: RESP 18; TEMP 97.3
[2024-11-16] MEDS ORDERED: POTASSIUM PHOS 3 MMOL/1 ML INFUSION IV STA (09:24)
[2024-11-16] MEDS: POTASSIUM PHOSPHATE 15 MMOL in SODIUM CHLORIDE 0.9% 250 ML IV ONE (10:12)
--- NOTE | 2024-11-16 11:12 | Electrocardiogram Report ---
Test Reason : Blood Pressure : */* mmHG Vent. Rate : 102 BPM Atrial Rate : 102 BPM P-R Int : 176 ms QRS Dur : 88 ms QT Int : 384 ms P-R-T Axes : * -36 33 degrees QTcB Int : 500 ms Sinus tachycardia Left axis deviation Poor R wave progression, consider anterior NH vs. lead placement vs. LVH Abnormal ECG When compared with ECG of 13-Nov-2024 21:20, Premature supraventricular complexes are no longer Present Non-specific change in ST segment in Lateral leads QT has lengthened Confirmed by Samuel Muniz ([id number]) on 11/16/2024 11:11:50 AM Referred By: REFERRED SELF Confirmed By: Samuel Muniz
[2024-11-16 11:36] VITALS: O2SAT 89
[2024-11-16 14:10] VITALS: BP 142/80; PULSE 95
--- NOTE | 2024-11-16 15:14 | Discharge Summary ---
Date of Service November 16, 2024 Admission HPI Per Admitting Provider The patient is a 84-year-old male with a past medical history including COPD, Graves' disease, lung cancer stage III, CKD stage III, cardiomyopathy, large B- cell lymphoma, mixed conductive and sensorineural hearing loss. His most recent admitted to [facility] from 10/21-11/05/2024 for right middle lobe and right lower lobe pneumonia with sputum culture growing Moraxella and strep pneumoniae. He was treated with IV Zosyn, and then finished admission with 7 days of Augmentin 8 as an 5 mg twice daily. Patient reports that he did have some improvement post hospitalization, but never returned back to normal, and has developed more shortness of breath as noted over past couple days. The patient is somewhat confused, and dyspneic, able to contribute to ROS in HPI some extent, but is also somewhat limited. Admission Exam Per Admitting Provider The patient is awake, intermittently confused, dyspneic at rest, normocephalic and atraumatic, lying in bed and in mild acute respiratory distress. HEENT--PERRL, EOMI, mucous membranes and oropharynx dry. Neck--supple. No JVD. No bruits. Thyroid normal, trachea midline, no adenopathy. Heart--normal S1 and S2. No murmurs, rubs or gallops Lungs--coarse breath sounds right middle and lower lobe, with scattered wheezes throughout. Mild respiratory distress and accessory muscle use. Abdomen--normal bowel sounds and soft. Nontender. Nondistended, no hernias or masses, no organomegaly. Extremities--no cyanosis or clubbing. No edema. Dermatologic--normal skin turgor, normal color, no abnormal lymph nodes, no rash. Neurologic--cranial nerves II through XII grossly intact. Rheumatologic--normal range of motion. Psychiatric--mildly anxious Principal Diagnosis HACP, progressive dyspnea Discharge Exam General: patient resting comfortably, NAD, non-toxic in appearance, answers questions appropriately. Skin: warm, dry, intact HEENT: NC/AT, anicteric sclera, conjunctiva without injection, moist mucus membranes. Heart: +S1/S2, regular, no m/r/g Lungs: equal air entry bilaterally, no rales/rhonchi/wheezes Abd: +BS, soft, NT/ND Ext: warm, no clubbing/cyanosis or edema Neuro: nonfocal,speech intact, no facial droop, moving all extremities. Discharge Data Allergies Allergy/AdvReac Type Severity Reaction Status Date / Time No Known Allergies Allergy Verified 10/21/24 16:55 Consultations 11/13/24 23:09 ED Decision to Admit Stat Ordered Studies 11/14/24 10:27 CT chest diagnostic wo con Urgent Hospital Course (1) COPD exacerbation: (2) HCAP (healthcare-associated pneumonia): (3) Acute diastolic CHF (congestive heart failure): (4) Acute hypoxemic respiratory failure: (5) Right lower lobe pneumonia: (6) Chronic kidney disease with active medical management without dialysis, stage 3 (moderate): (7) Adenocarcinoma of lung, stage 3: (8) Large B-cell lymphoma: (9) Hematuria: Plan Acute respiratory failure with hypoxia/right lower lobe HCAP/COPD exacerbation - Recent admission from 10/21-11/05/2024 which grew Moraxella catarrhalis and strep pneumoniae pneumonia - He was treated with IV Zosyn, then followed up with Augmentin 875 twice daily x 7 days during that admission - Patient transitioned to cefepime 2g IV alone - 2 L O2, Duonebs prn, oral Prednisone burst therapy, flutter valve; patient quickly improving - Patient likely with worsening dyspnea/cough due to sequela of last pneumonia infection exacerbated by complicated respiratory status - COVID, flu and RSV testing negative - Resolving - Patient will return to [facility] home and transition to oral abx Hematuria - 2+ blood in urine without evidence of urinary infection, patient stable/asymptomatic - Patient recommended to receive outpatient cystoscopy and urology referral after PCP visit post d/c Hyponatremia - Sodium 127 on admission - Likely a function of decreased oral intake - Status post 1 L normal saline in the ED - resolved BPH - Continue tamsulosin Total Time Total Time Spent Total Time Spent (In Minutes): See attending attestation Discharge Plan Discharge Items Patient Disposition: Personal Long Term Reason For Visit: ACUTE ON CHRONIC RESP FAILURE W/HYPOXIA, PNEUMONIA Discharge Diagnosis: Acute on chronic respiratory failure w/ hypoxia, pneumonia Activity: Per Instructions section Non-emergency contact: Primary Care Provider Call non-emergency contact if: your symptoms worsen and your pain is not controlled Follow-up/Referrals: Schweichler,Corby M., DO [Primary Care Provider] - Diet: Heart Healthy Addtl Attending Provider Instructions: You were admitted to [facility] due to worsening breathing and productive cough concerning for a COPD exacerbation complicated by pneumonia and your stage 3 lung cancer. While inpatient your were treated with supplemental oxygen, steroid therapy, duonebs, antibiotics, inspiratory spirometer and flutter valve treatments. Your status quickly improved, and your SOB and cough with productive phlegm quickly reduced. Your status likely was affected most by your resolving pneumonia from your last hospital visit 10/21-11/05. After treatment your respiratory status greatly improved and your oxygen saturation was controlled and within normal limits on 2 L of supplemental oxygen compared to the 4 L that you are normally on at home. You may have continued shortness of breath and productive cough over the next few weeks however this should gradually improve as your lungs continue the healing process. A discharge summary will be sent to your primary care physician to ensure continuity of care. Please bring this discharge summary with you to your next office appointment so that your provider can review it at that time. Medications: Your medication list has been reviewed and reconciled upon discharge to ensure accuracy and continuity of care. An updated list of all your medications is included with your hospital discharge paperwork. Please review this list closely, and make note of any changes. Prednisone taper therapy has been sent to your pharmacy. Please take Prednisone 40mg for the next 3 days, 30mg for 3 days, 20mg for 3 days, and finally 10mg for the final 3 days for a total of 12 days of therapy. An antibiotic, cefpodoxime has been sent to your pharmacy for your resolving pneumonia. Please take cefpodoxime 200 mg once tonight. After today take cefpodoxime 200mg twice per day for the next 3 days for a total of 7 tablets over the next 3 days. Take your medications as instructed; do not skip a dose of your medicines. Make sure all of your doctors know every medicine you are taking (including [id number] medicines, vitamins, and supplements). Call your primary care provider before taking any new medicines (including [id number] medicines, vitamins, and supplements), because some of these may interact with your current medications, or may make your symptoms worse. Tell your primary care provider if you cannot afford your medications. CALL 911 OR GO TO THE EMERGENCY DEPARTMENT if you experience any of the following: Sudden, severe abdominal pain or nausea/vomiting Severe chest pain, or chest pain that radiates (moves) to your jaw or arm Sudden, severe shortness of breath or difficulty breathing Thank you for allowing us to participate in your care. Pending Studies at Discharge: No Stand-Alone Forms: My [employer], Smoking Cessation Skilled Items Patient informed of condition?: Yes DNR: Yes Discharge Level of Care: Skilled Communicable Disease: No Discharge Prognosis: Stable Lines: None Urinary Catheter: No Medications and DC Order Prescriptions: New cefpodoxime 200 mg tablet 200 mg PO BID Qty: 7 0RF Rx Instructions: must administer with a meal/food. Please take 1 200mg tablet this evening, and then 2 200mg tablets daily for the next 3 days for a total of 7 tablets, 1 tablet tonight, and 6 tablets over the next 3 days. prednisone 10 mg tablet 10 mg PO DAILY Qty: 30 0RF Rx Instructions: Please take four 10mg tablets on days 1-3. Please take three 10mg tablets on days 4-6. Please take two 10mg tablets on days 7-9. Please take one 10mg tablet daily on days 10-12 for a total of 30 tablets over 12 days. Continued (DME) Wheeled Walker Misc See Rx Instructions .Route Qty: 1 0RF Rx Instructions: Rollator walker with hand brakes and seat (DME) Portable Oxygen Misc See Rx Instructions .Route Qty: 1 0RF Rx Instructions: As directed/ 2.5 LPM cholecalciferol (vitamin D3) 1,000 unit (25 mcg) tablet 2,000 units PO QAM acetaminophen [Tylenol Extra Strength] 500 mg Tablet 500 mg PO Q6H PRN (Reason: Pain) furosemide 20 mg tablet See Rx Instructions .ROUTE .COMPLEX Rx Instructions: 20 mg orally ;take his lasix on Wednesday, Wed, , Wed. Hold lasix on ,,. check weight daily. take lasix on ,, if weight goes up 2lbs overnight or more than 5 pounds from his current baseline. diclofenac sodium [Voltaren Arthritis Pain] 1 % Gel 2 g EXT BID PRN (Reason: pain) Qty: 100 0RF metoprolol succinate 25 mg tablet extended release 24 hr 25 mg PO PM Qty: 30 0RF ipratropium-albuterol 0.5 mg-3 mg(2.5 mg base)/3 mL solution for nebulization 3 ml NEB QID PRN (Reason: Shortness Of Breath Or Wheezing) Qty: 90 0RF aspirin 81 mg Tablet,Delayed Release (Dr/Ec) 81 mg PO QAM Qty: 30 0RF tamsulosin 0.4 mg capsule 0.4 mg PO QAM Qty: 90 3RF gabapentin 300 mg capsule 300 mg PO BID PRN (Reason: pain) Qty: 60 5RF Arnuity Ellipta 100 mcg/actuation blister with device 1 inh inhalation DAILY Qty: 30 11RF Discharge Orders: Discharge Order (Routine); Ordered 11/16/24 Ordered By: Abhinav Villagran Admission Data Admit Date/Time: 11/13/24 23:32 Attending Provider: Samuel Ceballos Admit Provider: Leonard Browne Primary Care Provider: Corby Zuniga Other Providers: Leonard Browne; Valeriano Verde at [place] Other Interventions: Discharge Summary Assessment (RN) Last Done: 11/16/24 14:02 Supervising Physician Co-Signing Physician Notes Attending attestation Pt seen and examined in concert with Dr. Villagran. In agreement with the documented findings as noted in the resident documentation with any exceptions or additions as noted here. Patient reports return to his outpatient baseline with reduced cough, sputum and fatigue. On examination, S1/S2 nl RRR no MCG. Ongoing scattered wheeze and rhonchi more noticeable on the right lower lobe, improved. Abd NT/ND BS+ve Acute on chronic hypoxic respiratory failure in the setting of COPD, recent pneumonia, lung cancer - will complete course of abx therapy in the setting of improvement, though CT imaging suggests that current findings are resolving previous PNA vs. underlying pathology. Transitioned to PO steroid therapy with taper as noted. SpO2 goal range ~92%. Else see resident documentation as noted. Total attending physician time spent with this patient's care on the day of discharge: 32 minutes. Resident Activity Tracking Resident Involvement: Resident Care Provided Care Provided: Adult Hospital Medicine
== END 2024-11-16 16:19 | DRG 193 ==
LOC: ED 21:14 → SUATTDRO 23:32 → 4W 23:32

== ENCOUNTER 2024-12-04 15:51 | Inpatient (IN) ==
[2024-12-04 17:45] LABS: Basophils # (auto) 0.02 K/uL (0.00-0.20); Basophils % (auto) 0.2 %; Eosinophils # (auto) 0.02 K/uL (0.00-0.50); Eosinophils % (auto) 0.2 %; Hematocrit (blood only) 33.4 % (42.0-52.0); Hemoglobin 11.4 g/dl (14.0-18.0); Immature Granulocytes # (auto) 0.04 K/uL (0.01-0.20); Immature Granulocytes % (auto) 0.4 %; Lymphocytes # (auto) 0.45 K/uL (1.20-3.40); Mean Corpuscular Hemoglobin 28.4 pg (25.0-34.0); Mean Corpuscular Hgb Conc 34.1 g/dL (32.0-36.0); Mean Corpuscular Volume 83.3 fL (80.0-100.0); Mean Platelet Volume 10.4 fL (9.4-12.4); Monocytes # (auto) 0.64 K/uL (0.11-0.59); Monocytes % (auto) 7.2 %; Neutrophils # (auto) 7.76 K/uL (1.40-6.50); Platelet Count 257 K/uL (130-400); RDW Coefficient of Variation 15.2 % (11.5-14.5); RDW Standard Deviation 46.1 fL (36.4-46.3); Red Blood Count 4.01 M/uL (4.70-6.10); White Blood Count 8.93 K/ul (4.8-10.8)
[2024-12-04 18:14] LABS: Albumin Globulin Ratio 1.2 (0.9-2); Albumin Level 3.1 gm/dl (3.4-5.0); BUN Creatinine Ratio 22.9 (10-20); Bilirubin,Total 2.9 mg/dl (0.2-1.0); Calcium 8.2 mg/dl (8.6-10.3); Creatinine Clr Calc Pharmacy 45.5 ml/min; Globulin 2.6 gm/dl (2.5-4.0); Potassium 3.8 mmol/L (3.5-5.1); Total Protein 5.7 gm/dl (6.0-8.3)
[2024-12-04 18:19] LABS: Appearance Urine Clear (Clear); Bacteria Urine Automated None Seen (None Seen); Bilirubin Urine 1+ (Negative); Blood Urine Negative (Negative); Cast Urine Automated 0-2 /lpf (0-2); Color Urine Dark Yellow; Glucose Urine UA Negative (Negative); Ketones Urine Negative (Negative); Leukocyte Esterase Urine 2+ (Negative); Nitrite Urine Negative (Negative); Protein Urine Trace (Negative); RBC Urine Automated 0-2 /hpf (0-2); Specific Gravity Urine 1.015 (1.000-1.030); Urobilinogen Urine Negative (Negative); WBC Urine Automated 21-50 /hpf (0-5); pH Urine 6.5 (4.5-7.5)
[2024-12-04] MEDS: OPTIRAY 320 100ml IV ONE (19:21)
--- NOTE | 2024-12-04 20:46 | CT Scan Report ---
Exam(s): CT ABDOMEN + PELVIS With Contrast IV Amt: 90 ml optiray 320 EXAM: CT Abdomen and Pelvis With Intravenous Contrast CLINICAL HISTORY: Reason for exam: elevated liver enzymes abd pain. TECHNIQUE: Axial computed tomography images of the abdomen and pelvis with intravenous contrast. CTDI is 20 mGy and DLP is 934 mGy-cm. Automated exposure control was utilized for the study. A dose lowering technique was utilized adhering to the principles of ALARA. CONTRAST: Patient received 90 ml optiray 320 of IV contrast COMPARISON: 10/21/24 FINDINGS: Lung bases: Bibasilar airspace opacities suggesting combined atelectatic and fibrotic changes with regions of round atelectasis suggested in both lower lobes. Pleural space: Small bilateral pleural effusions which are partially loculated and probably chronic. Calcified pleural plaque left lung base. Heart: Small pericardial effusion. ABDOMEN: Liver: Unremarkable. No mass. Gallbladder and bile ducts: Gallbladder wall edema, new from prior, associated with mild wall thickening. Some layering gallbladder sludge. No biliary dilatation. No calcified stones. Pancreas: Unremarkable. No mass. No ductal dilation. Spleen: Unremarkable. No splenomegaly. Adrenals: Unremarkable. No mass. Kidneys and ureters: No hydronephrosis. Symmetric renal enhancement. Simple bilateral renal cysts; no follow-up indicated. Nonobstructing left kidney stone. Stomach and bowel: Right inguinal hernia containing visceral fat and cecal base/ileocecal junction. Compared to prior, there is increased distention of the herniated cecum with stool. Early incarceration cannot be excluded. There is no upstream bowel obstruction. Diverticulosis without diverticulitis. No mucosal thickening. PELVIS: Appendix: Appendix is normal. Bladder: Unremarkable. No mass. Reproductive: Prostatomegaly. ABDOMEN and PELVIS: Intraperitoneal space: Unremarkable. No free air, significant free fluid, or fluid collection. Bones/joints: Degenerative change in the lumbar spine. No acute fracture. No dislocation. Soft tissues: Right inguinal hernia containing bowel. Intramuscular lipoma right psoas muscle measuring 2.8 x 3.5 x 6.2 cm. Vasculature: Atherosclerosis. No abdominal aortic aneurysm. Lymph nodes: Unremarkable. No enlarged lymph nodes. Tubes, lines and devices: Mild urinary bladder wall trabeculation consistent with chronic lateral lead obstruction. Also noted is a small left-sided bladder diverticulum. IMPRESSION: 1. 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 Correlate for underlying coagulopathy. 2. Gallbladder wall edema, new from prior, associated with mild wall thickening. Some layering gallbladder sludge. Appearance raises the possibility of acute cholecystitis. Clinical/sonographic correlation recommended. 3. Right inguinal hernia containing visceral fat and cecal base/ileocecal junction. Compared to prior, there is increased distention of the herniated cecum with stool. Early incarceration cannot be excluded. There is no upstream bowel obstruction. Electronically signed by: Omar Hodge M.D. 12/04/24 20:45 PM
--- NOTE | 2024-12-04 20:48 | CT Scan Report ---
Exam(s): CT HEAD Without Contrast EXAM: CT Head Without Intravenous Contrast CLINICAL HISTORY: Reason for exam: vomitting. TECHNIQUE: Axial computed tomography images of the head/brain without intravenous contrast. CTDI is 36 mGy and DLP is 624 mGy-cm. Automated exposure control was utilized for the study. A dose lowering technique was utilized adhering to the principles of ALARA. COMPARISON: 04/12/24 FINDINGS: Brain: Generalized parenchymal volume loss. Periventricular and deep cerebral white matter hypoattenuation suggesting chronic small vessel ischemic change. Garcia-white matter differentiation maintained. No hemorrhage, mass effect, parenchymal edema, or midline shift. Ventricles: Unremarkable. No hydrocephalus. Bones/joints: Unremarkable. No acute fracture. Soft tissues: Unremarkable. Vasculature: Intracranial atherosclerosis. Sinuses: Mucosal thickening in the maxillary sinuses. Mastoid air cells: Right mastoid effusion. Orbits: Lens replacements. IMPRESSION: No acute intracranial process. Electronically signed by: Omar Hodge M.D. 12/04/24 20:47 PM
[2024-12-04] MEDS: cefTRIAXone SODIUM 2,000 MG/50 ML BAG IV STA (21:16)
--- NOTE | 2024-12-04 22:20 | History & Physical Report ---
Date of Service December 04, 2024 Assessment & Plan (1) COPD (chronic obstructive pulmonary disease): (2) Adenocarcinoma of lung, stage 3: (3) Chronic kidney disease: (4) Hyponatremia: (5) Large B-cell lymphoma: (6) Acute cholecystitis: Plan This is a 84 y/o female patient with PMHx of COPD, Graves' disease, Lung adenocarcinoma, CKD-3, and recent admission for management of PNA who was admitted for management of RUQ pain found to be related to acute cholecystitis. Acute cholecystitis - Patient with imaging, labs, and presentation consistent with acute cholecystitis - Last bowel movement was yesterday and was non-bloody and normal consistency - ED discussed with GI and general surgery, who stated that patient would go for ERCP tentatively tomorrow and possibly surgical intervention (cholecystectomy versus choleostomy pending eval of surgical risk) - Patient placed NPO for procedure tomorrow - IVF w/ NSS at maintenance rate to stop after 1 bag - Will order Ceftriaxone - Zofran prn ordered - Consult GI and General Surgery. Would appreciate their input. - Patient not currently in pain and does not feel they need analgesics at this time. Will order Tylenol 650 mg q4h to be used prn - Monitor am labs COPD - Continue home inhalers CKD - Cr was 0.89 in recent admission; today Cr 1.09 - Will order fluids as mentioned above - Monitor am labs BPH - Continue home flomax HFpEF - Continue ASA, Lasix, and Metoprolol Dispo: PCU/Tele Fluids: NSS @ 125 ml/hr x1 Diet: NPO due to possible ERCP tomorrow Pain Control: Tylenol VTE ppx: SCD Code Status: Conditional code: patient would like chest compressions and defibrillation if necessary as well as all other ACLS interventions, but is NOT interested in invasive airway interventions such as intibation or mechanical ventilation. History of Present Illness Chief Complaint: RUQ pain Primary Care Provider: Corby Zuniga, This is a 84 y/o female patient with PMHx of COPD, Graves' disease, Lung adenocarcinoma, CKD-3, and recent admission for management of PNA who presented to the ed via EMS due to RUQ pain with associated N/V and poor PO intake. [facility] where, since 2 days ago, had been experiencing nausea that has lead him to decrease his PO intake, and yesterday had an episode of non-bloody emesis, after which he stopped eating/drinking due to concern of repeat emesis. Denies having any abdominal pain, urinary symptoms, bloody stool, fevers, chills, chest pain, palpitations, SOB, or other symptoms. ED Course: ceftriaxone 2 g given x1 Labs/Imaging: CBC w/o leukocytosis (mild neutrophilia), Hgb at 11.4, plt of 257. CMP with mild hyponatremia at 133 and no other electrolyte abnormalities, Cr of 1.09, bsg of 171. LFT with elevated transaminases and alk phos. Lipase wnl at 17. U/A with positive leukocyte esterase and negative nitrites and bacteria, no blood noted. CTAP noting likely acute cholecystitis (gallbladder wall edema and mild wall thickening plus some layering gallbladder sludge), also noting intramuscular lipoma in right iliopsoas and right inguinal hernia containing fat and cecal/ileocecal junction. Head CT unremarkable. Medical History: [Reviewed] Medications: [Reviewed] Surgical History: [Reviewed] Family history: [Reviewed] Allergies: [Reviewed] Social History: [Reviewed] Allergies Allergy/AdvReac Type Severity Reaction Status Date / Time No Known Allergies Allergy Verified 10/21/24 16:55 Home Medications Medication Instructions Recorded Confirmed Type cholecalciferol (vitamin D3) 25 2,000 units PO QAM 08/23/19 12/04/24 History mcg (1,000 unit) tablet Wheeled Walker #1 ea 07/01/23 10/21/24 Rx acetaminophen 500 mg tablet 500 mg PO Q6H PRN Pain 10/20/23 12/04/24 History (Tylenol Extra Strength) furosemide 20 mg tablet See Rx Instructions .Route .COMPLEX 04/12/24 12/04/24 History Portable Oxygen #1 ea 05/08/24 10/21/24 Rx aspirin 81 mg tablet,delayed 81 mg PO QAM #30 tabs 11/02/24 12/04/24 Rx release diclofenac sodium 1 % topical gel 2 g EXT BID PRN pain #100 grams 11/02/24 12/04/24 Rx (Voltaren Arthritis Pain) fluticasone furoate 100 1 inh inhalation DAILY #30 ea 11/02/24 12/04/24 Rx mcg/actuation blister powder for inhalation (Arnuity Ellipta) gabapentin 300 mg capsule 300 mg PO BID PRN pain #60 caps 11/02/24 12/04/24 Rx ipratropium 0.5 mg-albuterol 3 mg 3 ml NEB QID PRN Shortness Of 11/02/24 12/04/24 Rx (2.5 mg base)/3 mL nebulization Breath Or Wheezing #90 mL soln metoprolol succinate 25 mg 25 mg PO PM #30 tabs 11/02/24 12/04/24 Rx tablet,extended release 24 hr tamsulosin 0.4 mg capsule 0.4 mg PO QAM #90 caps 11/02/24 12/04/24 Rx Past Med/Surg History Problem List (Updated 12/04/24 @ 23:28 by Alex Abdul MD) Acute cholecystitis (Acute) Acute cholecystitis Hematuria COPD exacerbation HCAP (healthcare-associated pneumonia) Pneumonia (Acute) Tachycardia Acute diastolic CHF (congestive heart failure) Elevated transaminase level Pneumonia Acute dehydration (Acute) Weakness (Acute) Right lower lobe pneumonia (Acute) Acute hypoxemic respiratory failure (Acute) COPD (chronic obstructive pulmonary disease) (Acute) COPD (chronic obstructive pulmonary disease) Acute respiratory failure with hypoxia Rhabdomyolysis Sepsis Brennon's thyroiditis Graves disease Physical debility Decubital ulcer H/O pleural effusion Palliative care by specialist Advanced care planning/counseling discussion Cancer related pain Dyspnea and respiratory abnormalities Weakness generalized Falls frequently Right knee pain Knee pain Elevated blood sugar Adenocarcinoma of lung, stage 3 Hemothorax, postoperative Anemia Chronic kidney disease with active medical management without dialysis, stage 3 (moderate) Chronic kidney disease GI bleeding Emphysema/COPD Cor pulmonale Pulmonary hypertension Elevated liver enzymes Right heart failure Right middle lobe pneumonia (Acute) Hyperthyroidism Abnormal chest CT Ventricular tachycardia Cardiomyopathy Hyponatremia Hypoxia (Acute) Elevated troponin Vitamin D deficiency Elevated TSH Postural dizziness with near syncope Cervical spondylosis Large B-cell lymphoma Stage 2 chronic kidney disease Positive colorectal cancer screening using Cologuard test Mixed conductive and sensorineural hearing loss (Acute) Postherpetic neuralgia (Chronic) HTN (hypertension) (Chronic) Medical History Pleural effusion Acute kidney injury Acute hypoxemic respiratory failure Hypertension Sensorineural hearing loss (SNHL) of both ears Cor pulmonale Pulmonary hypertension Pulmonary nodule RLL Chronic kidney disease History of shingles takes gabapentin for pain Hyperthyroidism Emphysema/COPD Lymphoma (~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 Surgical History History of nasal surgery (~2014) due to CA Hx of esophagogastroduodenoscopy Hx of colonoscopy H/O varicose vein ligation Family History Father , Age 91 Renal failure Mother Breast cancer Denies family history of Ovarian cancer Prostate cancer Myocardial infarction Colorectal cancer Social History Smoking Status: Never smoker Tobacco Type: Cigarettes Age Started Using Tobacco: 18; Age Quit Using Tobacco: 61; Cigarettes Per Day: 1 PPD; Second Hand Exposure: No; Do You Dip or Chew Tobacco: No; Hx Alcohol Use: No Hx Substance Use: No Preferred Language: Danish Communication Ability: Effective Visual Impairment: No Limitations Hearing Ability: Hard of Hearing Treatment Coordinator Required: No Beliefs That Will Affect Care: None marital status: Current Living Situation: Spouse current occupational status: retired How many Children do You have: 1 Feels Safe at Home: Yes Childhood Exposure to Second-Hand Smoke: No Diet: regular caffeine: Yes Dental Care, Regularly: No Physical Activity Frequency: Does not Exercise Seatbelt Use: always Sunscreen Use: No Do you think of yourself as: straight/heterosexual Gender Identity: Male Assistive Devices: Oxygen - at Night and Wheelchair Review of Systems Review of Systems: As per HPI Physical Exam Physical Exam: GENERAL: AAOx3, afebrile, NAD HEAD: atraumatic and normocephalic EYES: MINDA, EOM intact CHEST: symmetric chest expansions with respirations CARDIO: RRR, no r/m/g PULMONARY: scattered rhonchi in bilateral lung drummond, good air entry bilaterally, no wheezes, normal respiratory effort, no respiratory distress GI: tender to palpation of RUQ and more mild tenderness in LLQ and RLQ, soft, non distended, no guarding or rebound tenderness EXTREMITIES: no swelling or calf tenderness in b/l LE Results & Data Results & Data Vital Signs (Past 12 Hours) Vital Signs Temp Pulse Pulse Resp BP BP Pulse Ox 12/04/24 22:00 85 16 128/75 94 12/04/24 21:12 90 12/04/24 20:50 36.6 C 12/04/24 20:00 88 17 160/70 H 98 12/04/24 18:00 96 H 21 101/75 94 12/04/24 17:27 95 H 13 99 12/04/24 17:07 100 H 19 111/72 98 12/04/24 16:22 97 H 12/04/24 16:21 95 H 15 117/74 98 12/04/24 16:01 36.7 C 97 H 20 117/68 95 O2 Del Method O2 Flow Rate 12/04/24 22:00 Nasal Cannula 2 12/04/24 21:12 12/04/24 20:50 12/04/24 20:00 Nasal Cannula 2 12/04/24 18:00 Nasal Cannula 2 12/04/24 17:27 Nasal Cannula 2 12/04/24 17:07 Nasal Cannula 2 12/04/24 16:22 12/04/24 16:21 Nasal Cannula 4 12/04/24 16:01 Nasal Cannula 4 Supervising Physician Co-Signing Physician Notes Attending addendum: I have physically seen this patient, have supervised the medical residents activities, and agree with the H&P unless as otherwise noted. Assessment and Plan: Acute cholecystitis- CT scan abdomen pelvis shows gallbladder wall edema and mild thickening Abnormal LFTs: Total bilirubin 2.9, AST 280, ALT 255, alkaline phosphatase 351 NPO Consult gastroenterology for ERCP for the a.m., contacted by ED and aware Consult general surgery, contacted by ED and aware Given ceftriaxone 2 g IV and metronidazole 500 mg IV by the ED Ceftriaxone 2 g IV daily Metronidazole mg IV every 8 hours Pantoprazole 40 mg IV daily Repeat CBC with differential and chemistry profile in a.m. COPD- Continue routine inhalers Of note, patient was most recently admitted to [facility] from 11/13- 11/16/2024 for COPD exacerbation and acute respiratory failure with hypoxia. Patient appears to be at his baseline breathing status at this time Continue nasal cannula oxygen, for titration goal to 92% Hypertension- Continue metoprolol succinate, but reduce from 25 to 12.5 mg in the periprocedure interval with hold parameters Most recent echocardiogram on 04/13/2024 with ejection fraction 50-55%, with no significant change compared to 10/21/2023 Hold aspirin, furosemide Ongoing medical issues: BPH with LUTS: Hold tamsulosin temporarily Resident Activity Tracking Resident Involvement: Resident Care Provided Care Provided: Adult Hospital Medicine (1) COPD (chronic obstructive pulmonary disease) COPD type: unspecified COPD Qualified Code(s): J44.9 - Chronic obstructive pulmonary disease, unspecified
--- NOTE | 2024-12-04 23:10 | Emergency Department Note ---
History of Present Illness General Chief complaint: Abdominal Pain Stated complaint: abdominal pain Time Seen by Provider: 12/04/24 18:46 History of Present Illness Provider complaint: Abnormal labs 84-year-old male presents emergency department for abnormal labs.Patient was reportedly sent [facility] for elevated liver enzymes. Currently the patient reports no discomfort. Patient states that he was sent here for CAT scan. Home Medications Medication Instructions Recorded Confirmed Type cholecalciferol (vitamin D3) 25 2,000 units PO QAM 08/23/19 12/04/24 History mcg (1,000 unit) tablet Wheeled Walker #1 ea 07/01/23 10/21/24 Rx acetaminophen 500 mg tablet 500 mg PO Q6H PRN Pain 10/20/23 12/04/24 History (Tylenol Extra Strength) furosemide 20 mg tablet See Rx Instructions .Route .COMPLEX 04/12/24 12/04/24 History Portable Oxygen #1 ea 05/08/24 10/21/24 Rx aspirin 81 mg tablet,delayed 81 mg PO QAM #30 tabs 11/02/24 12/04/24 Rx release diclofenac sodium 1 % topical gel 2 g EXT BID PRN pain #100 grams 11/02/24 12/04/24 Rx (Voltaren Arthritis Pain) fluticasone furoate 100 1 inh inhalation DAILY #30 ea 11/02/24 12/04/24 Rx mcg/actuation blister powder for inhalation (Arnuity Ellipta) gabapentin 300 mg capsule 300 mg PO BID PRN pain #60 caps 11/02/24 12/04/24 Rx ipratropium 0.5 mg-albuterol 3 mg 3 ml NEB QID PRN Shortness Of 11/02/24 12/04/24 Rx (2.5 mg base)/3 mL nebulization Breath Or Wheezing #90 mL soln metoprolol succinate 25 mg 25 mg PO PM #30 tabs 11/02/24 12/04/24 Rx tablet,extended release 24 hr tamsulosin 0.4 mg capsule 0.4 mg PO QAM #90 caps 11/02/24 12/04/24 Rx Allergies Allergy/AdvReac Type Severity Reaction Status Date / Time No Known Allergies Allergy Verified 10/21/24 16:55 Past Med/Surg History Problem List (Updated 12/04/24 @ 23:28 by Alex Abdlu MD) Acute cholecystitis (Acute) Acute cholecystitis Hematuria COPD exacerbation HCAP (healthcare-associated pneumonia) Pneumonia (Acute) Tachycardia Acute diastolic CHF (congestive heart failure) Elevated transaminase level Pneumonia Acute dehydration (Acute) Weakness (Acute) Right lower lobe pneumonia (Acute) Acute hypoxemic respiratory failure (Acute) COPD (chronic obstructive pulmonary disease) (Acute) COPD (chronic obstructive pulmonary disease) Acute respiratory failure with hypoxia Rhabdomyolysis Sepsis Brennon's thyroiditis Graves disease Physical debility Decubital ulcer H/O pleural effusion Palliative care by specialist Advanced care planning/counseling discussion Cancer related pain Dyspnea and respiratory abnormalities Weakness generalized Falls frequently Right knee pain Knee pain Elevated blood sugar Adenocarcinoma of lung, stage 3 Hemothorax, postoperative Anemia Chronic kidney disease with active medical management without dialysis, stage 3 (moderate) Chronic kidney disease GI bleeding Emphysema/COPD Cor pulmonale Pulmonary hypertension Elevated liver enzymes Right heart failure Right middle lobe pneumonia (Acute) Hyperthyroidism Abnormal chest CT Ventricular tachycardia Cardiomyopathy Hyponatremia Hypoxia (Acute) Elevated troponin Vitamin D deficiency Elevated TSH Postural dizziness with near syncope Cervical spondylosis Large B-cell lymphoma Stage 2 chronic kidney disease Positive colorectal cancer screening using Cologuard test Mixed conductive and sensorineural hearing loss (Acute) Postherpetic neuralgia (Chronic) HTN (hypertension) (Chronic) Medical History Pleural effusion Acute kidney injury Acute hypoxemic respiratory failure Hypertension Sensorineural hearing loss (SNHL) of both ears Cor pulmonale Pulmonary hypertension Pulmonary nodule RLL Chronic kidney disease History of shingles takes gabapentin for pain Hyperthyroidism Emphysema/COPD Lymphoma (~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 Surgical History History of nasal surgery (~2014) due to CA Hx of esophagogastroduodenoscopy Hx of colonoscopy H/O varicose vein ligation Family History Father , Age 91 Renal failure Mother Breast cancer Denies family history of Ovarian cancer Prostate cancer Myocardial infarction Colorectal cancer Social History Smoking Status: Never smoker Tobacco Type: Cigarettes Age Started Using Tobacco: 18; Age Quit Using Tobacco: 61; Cigarettes Per Day: 1 PPD; Second Hand Exposure: No; Do You Dip or Chew Tobacco: No; Hx Alcohol Use: No Hx Substance Use: No Preferred Language: Yi Communication Ability: Effective Visual Impairment: No Limitations Hearing Ability: Hard of Hearing Crop Research Scientist Required: No Beliefs That Will Affect Care: None marital status: Current Living Situation: Spouse current occupational status: retired How many Children do You have: 1 Feels Safe at Home: Yes Childhood Exposure to Second-Hand Smoke: No Diet: regular caffeine: Yes Dental Care, Regularly: No Physical Activity Frequency: Does not Exercise Seatbelt Use: always Sunscreen Use: No Do you think of yourself as: straight/heterosexual Gender Identity: Male Assistive Devices: Oxygen - at Night and Wheelchair Physical Exam Vital Signs Vital Signs - 24 hr 12/04/24 16:01 12/04/24 16:21 12/04/24 16:22 Temperature 36.7 C Temperature Source Oral Pulse Rate 97 H 97 H Pulse Rate [Apical] 95 H Pulse Rhythm Regular Pulse Rhythm [Apical] Irregular Pulse Strength Normal Pulse Strength [Apical] Respiratory Rate 20 15 Respiratory Effort / Characteristics Non-Labored Spontaneous Non-Labored Spontaneous Respiratory Depth Normal Normal Respiratory Pattern Regular Regular Blood Pressure 117/68 Blood Pressure [Right Arm] 117/74 Blood Pressure Mean 84 Blood Pressure Mean [Right Arm] 88 Blood Pressure Position Sitting Blood Pressure Position [Right Arm] Semi-fowlers Pulse Oximetry 95 98 Oxygen Delivery Method Nasal Cannula Nasal Cannula Oxygen Flow Rate 4 4 Sepsis Recent Fever Within 48 Hours No Sepsis New/Unexplained Change in Mental Status No Sepsis Action Taken by Nursing No Action Required 12/04/24 17:07 12/04/24 17:27 12/04/24 18:00 Temperature Temperature Source Pulse Rate 95 H Pulse Rate [Apical] 100 H 96 H Pulse Rhythm Pulse Rhythm [Apical] Pulse Strength Pulse Strength [Apical] Respiratory Rate 19 13 21 Respiratory Effort / Characteristics Non-Labored Spontaneous Non-Labored Spontaneous Respiratory Depth Normal Normal Respiratory Pattern Regular Regular Blood Pressure Blood Pressure [Right Arm] 111/72 101/75 Blood Pressure Mean Blood Pressure Mean [Right Arm] 85 83 Blood Pressure Position Blood Pressure Position [Right Arm] Semi-fowlers Semi-fowlers Pulse Oximetry 98 99 94 Oxygen Delivery Method Nasal Cannula Nasal Cannula Nasal Cannula Oxygen Flow Rate 2 2 2 Sepsis Recent Fever Within 48 Hours Sepsis New/Unexplained Change in Mental Status Sepsis Action Taken by Nursing 12/04/24 20:00 12/04/24 20:50 12/04/24 21:12 Temperature 36.6 C Temperature Source Oral Pulse Rate 90 Pulse Rate [Apical] 88 Pulse Rhythm Pulse Rhythm [Apical] Regular Pulse Strength Pulse Strength [Apical] Normal Respiratory Rate 17 Respiratory Effort / Characteristics Non-Labored Respiratory Depth Normal Respiratory Pattern Regular Blood Pressure Blood Pressure [Right Arm] 160/70 H Blood Pressure Mean Blood Pressure Mean [Right Arm] 100 Blood Pressure Position Blood Pressure Position [Right Arm] Sitting Pulse Oximetry 98 Oxygen Delivery Method Nasal Cannula Oxygen Flow Rate 2 Sepsis Recent Fever Within 48 Hours Sepsis New/Unexplained Change in Mental Status Sepsis Action Taken by Nursing 12/04/24 22:00 Temperature Temperature Source Pulse Rate Pulse Rate [Apical] 85 Pulse Rhythm Pulse Rhythm [Apical] Regular Pulse Strength Pulse Strength [Apical] Normal Respiratory Rate 16 Respiratory Effort / Characteristics Non-Labored Respiratory Depth Normal Respiratory Pattern Regular Blood Pressure Blood Pressure [Right Arm] 128/75 Blood Pressure Mean Blood Pressure Mean [Right Arm] 92 Blood Pressure Position Blood Pressure Position [Right Arm] Sitting Pulse Oximetry 94 Oxygen Delivery Method Nasal Cannula Oxygen Flow Rate 2 Sepsis Recent Fever Within 48 Hours Sepsis New/Unexplained Change in Mental Status Sepsis Action Taken by Nursing Physical Exam GENERAL: oriented to person, place, and time. appears well-developed and well- nourished. She does not appear distressed. HENT: Exam performed. -Head: Normocephalic and atraumatic. -Right Ear: External ear normal. No mastoid erythema -Left Ear: External ear normal. No mastoid erythema -Mouth/Throat: Dry mucous membranes. EYES: Conjunctivae and EOM are normal.Right eye exhibits no discharge. Left eye exhibits no discharge. No scleral icterus. NECK: Normal range of motion. Neck supple. No JVD present. No tracheal deviation and normal range of motion present. CV: Normal rate, regular rhythm, normal heart sounds and intact distal pulses. There is no peripheral edema. Palpable radial pulses bue. PULM/CHEST: Effort normal and breath sounds normal. No respiratory distress. No stridor. no wheezes.no rales. -Chest Wall: no tenderness to palpation ABD: The abdomen is soft. Bowel sounds are normal. no distension. No mass is present. There is no tenderness. There is no rebound, no guarding, no Gillette's sign. MUSC/SKEL: Normal range of motion. There is no peripheral edema, tenderness or deformity. NEURO: Motor and sensation grossly intact. SKIN: Skin is warm and dry. not diaphoretic. PSYCH: normal mood and affect. Behavior is normal. Judgment and thought content normal. Course Course 1845: The patient was evaluated in room A12A. A complete history and physical exam was performed Cardiac monitoring: An order was placed for continuous cardiac monitoring. The monitor shows a rate of 90 with sinus rhythm interpreted by me External medical records reviewed from the half-way. There is a note from florina Morejon. According to her note, the patient was scheduled to be discharged on hospice care today and when they went to round today he was vomiting and confused. They reported he had abdominal pain. According to the documentation from the half-way the patient had a pulse of 114 and temperature of 38.1. According her documentation the patient had tenderness on palpation of the epigastric and umbilical area. They spoke with the stepson via phone and according to her note they did not want the patient to be discharged home and want him to go to the hospital and he was full code. Lab work that was conducted at the half-way today showed a ALT of 260 AST of 360 alkaline phosphatase of 406 total bilirubin 4.5. 2057:Vital signs stable. Patient remains afebrile. White blood cell count 8.93 hemoglobin 11.4 creatinine within normal limits. Total bilirubin 2.9 AST 280 ALT [address] head is unremarkable. CT abdomen pelvis is significant for gallbladder wall edema associated with mild wall thickening some layering gallbladder sludge raising the possibility for acute cholecystitis. While the patient does not have any fever or right upper quadrant tenderness here, it was documented at the half-way raising the possibility for ascending cholangitis. Based off this and the patient's labs it was thought that the patient may need ERCP. Spoke with Dr. Angela on-call GI who does state that he conducts ERCPs. He states to treat the patient with Rocephin and to admit to medicine and he will evaluate the patient. I did discuss with the patient's stepson Jae Russ [phone]. I described the patient's condition to have explained to him that he might need a surgical procedure or an ERCP. After hearing this, he stated to defer to his stepfather the patient however he stated he thinks that the patient should have all procedures necessary and that he would recommend full code. I did discuss the patient's labs and imaging results my conversations with the GI doctor as well as his stepson to the patient, and he is agreement that he would like everything done possible. 2110: Spoke with Dr. Helton from general surgery who agrees to be on consult when medicine admits to team. Discussed case with [facility] hospitalist Dr. Gasca states he will evaluate the patient for admission. Administered Medications Discontinued Medications Ceftriaxone Sodium (Rocephin) 2,000 mg in 50 mls @ 100 mls/hr IV NOW STA Stop: 12/04/24 21:23 Last Infusion: 12/04/24 21:48 Dose: Infused Documented By: Admin: 12/04/24 21:16 Dose: 100 mls/hr Documented By: AMANUEL Ioversol (Optiray 320 100ml) 90 ml IV ONCE ONE Stop: 12/04/24 19:21 Last Admin: 12/04/24 19:21 Dose: 90 ml Documented By: PRIETO Medical Decision Making Medical Records Attestation: I reviewed the patient's medical records. External medical records reviewed from the half-way. There is a note from florina Morejon. According to her note, the patient was scheduled to be discharged on hospice care today and when they went to round today he was vomiting and confused. They reported he had abdominal pain. According to the documentation from the half-way the patient had a pulse of 114 and temperature of 38.1. According her documentation the patient had tenderness on palpation of the epigastric and umbilical area. They spoke with the stepson via phone and according to her note they did not want the patient to be discharged home and want him to go to the hospital and he was full code. Lab work that was conducted at the half-way today showed a ALT of 260 AST of 360 alkaline phosphatase of 406 total bilirubin 4.5. Laboratory Data Attestation: I reviewed the patient's lab results. 12/04/24 16:05 12/04/24 16:05 Lab Results 12/04/24 12/04/24 Range/Units 16:05 16:34 WBC 8.93 (4.8-10.8) K/ul RBC 4.01 L (4.70-6.10) M/uL Hgb 11.4 L (14.0-18.0) g/dl Hct 33.4 L (42.0-52.0) % MCV 83.3 (80.0-100.0) fL MCH 28.4 (25.0-34.0) pg MCHC 34.1 (32.0-36.0) g/dL RDW Std Deviation 46.1 (36.4-46.3) fL RDW Coeff of Chantal 15.2 H (11.5-14.5) % Plt Count 257 (130-400) K/uL MPV 10.4 (9.4-12.4) fL Immature Gran % (Auto) 0.4 % Neut % (Auto) 87.0 % Lymph % (Auto) 5.0 % Baxter % (Auto) 7.2 % Eos % (Auto) 0.2 % Baso % (Auto) 0.2 % Neut # (Auto) 7.76 H (1.40-6.50) K/uL Lymph # (Auto) 0.45 L (1.20-3.40) K/uL Baxter # (Auto) 0.64 H (0.11-0.59) K/uL Eos # (Auto) 0.02 (0.00-0.50) K/uL Baso # (Auto) 0.02 (0.00-0.20) K/uL Immature Gran # (Auto) 0.04 (0.01-0.20) K/uL Sodium 133 L (136-145) mmol/L Potassium 3.8 (3.5-5.1) mmol/L Chloride 96 L (98-107) mmol/L Carbon Dioxide 29 (21-32) mmol/L Anion Gap 8 (3-11) BUN 25 H (6-23) mg/dl Creatinine 1.09 (0.6-1.4) mg/dl Est Cr Clr Drug Dosing 45.5 ml/min eGFR 66.10 BUN/Creatinine Ratio 22.9 H (10-20) Glucose 171 H (70-99(Fasting)) mg/dl Calcium 8.2 L (8.6-10.3) mg/dl Total Bilirubin 2.9 H (0.2-1.0) mg/dl AST 280 H (13-39) U/L ALT 255 H (7-52) U/L Alkaline Phosphatase 351 H (34-104) U/L Total Protein 5.7 L (6.0-8.3) gm/dl Albumin 3.1 L (3.4-5.0) gm/dl Globulin 2.6 (2.5-4.0) gm/dl Albumin/Globulin Ratio 1.2 (0.9-2) Lipase 17 (11-82) U/L Urine Color Dark Yellow Urine Appearance Clear (Clear) Urine pH 6.5 (4.5-7.5) Ur Specific [place] 1.015 (1.000-1.030) Urine Protein Trace H (Negative) Urine Glucose (UA) Negative (Negative) Urine Ketones Negative (Negative) Urine Blood Negative (Negative) Urine Nitrite Negative (Negative) Urine Bilirubin 1+ H (Negative) Urine Urobilinogen Negative (Negative) Ur Leukocyte Esterase 2+ H (Negative) Urine WBC (Auto) 21-50 H (0-5) /hpf Urine RBC (Auto) 0-2 (0-2) /hpf U Hyaline Cast (Auto) 0-2 (0-2) /lpf U Epithel Cells (Auto) 3-5 H (0-2) /hpf Urine Bacteria (Auto) None Seen (None Seen) Imaging Data Radiologist's Impression: Abdomen/Pelvis CT 12/04/24 18:56 Exam(s): CT ABDOMEN + PELVIS With Contrast IV Amt: 90 ml optiray 320 EXAM: CT Abdomen and Pelvis With Intravenous Contrast CLINICAL HISTORY: Reason for exam: elevated liver enzymes abd pain. TECHNIQUE: Axial computed tomography images of the abdomen and pelvis with intravenous contrast. CTDI is 20 mGy and DLP is 934 mGy-cm. Automated exposure control was utilized for the study. A dose lowering technique was utilized adhering to the principles of ALARA. CONTRAST: Patient received 90 ml optiray 320 of IV contrast COMPARISON: 10/21/24 FINDINGS: Lung bases: Bibasilar airspace opacities suggesting combined atelectatic and fibrotic changes with regions of round atelectasis suggested in both lower lobes. Pleural space: Small bilateral pleural effusions which are partially loculated and probably chronic. Calcified pleural plaque left lung base. Heart: Small pericardial effusion. ABDOMEN: Liver: Unremarkable. No mass. Gallbladder and bile ducts: Gallbladder wall edema, new from prior, associated with mild wall thickening. Some layering gallbladder sludge. No biliary dilatation. No calcified stones. Pancreas: Unremarkable. No mass. No ductal dilation. Spleen: Unremarkable. No splenomegaly. Adrenals: Unremarkable. No mass. Kidneys and ureters: No hydronephrosis. Symmetric renal enhancement. Simple bilateral renal cysts; no follow-up indicated. Nonobstructing left kidney stone. Stomach and bowel: Right inguinal hernia containing visceral fat and cecal base/ileocecal junction. Compared to prior, there is increased distention of the herniated cecum with stool. Early incarceration cannot be excluded. There is no upstream bowel obstruction. Diverticulosis without diverticulitis. No mucosal thickening. PELVIS: Appendix: Appendix is normal. Bladder: Unremarkable. No mass. Reproductive: Prostatomegaly. ABDOMEN and PELVIS: Intraperitoneal space: Unremarkable. No free air, significant free fluid, or fluid collection. Bones/joints: Degenerative change in the lumbar spine. No acute fracture. No dislocation. Soft tissues: Right inguinal hernia containing bowel. Intramuscular lipoma right psoas muscle measuring 2.8 x 3.5 x 6.2 cm. Vasculature: Atherosclerosis. No abdominal aortic aneurysm. Lymph nodes: Unremarkable. No enlarged lymph nodes. Tubes, lines and devices: Mild urinary bladder wall trabeculation consistent with chronic lateral lead obstruction. Also noted is a small left-sided bladder diverticulum. IMPRESSION: 1. 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 Correlate for underlying coagulopathy. 2. Gallbladder wall edema, new from prior, associated with mild wall thickening. Some layering gallbladder sludge. Appearance raises the possibility of acute cholecystitis. Clinical/sonographic correlation recommended. 3. Right inguinal hernia containing visceral fat and cecal base/ileocecal junction. Compared to prior, there is increased distention of the herniated cecum with stool. Early incarceration cannot be excluded. There is no upstream bowel obstruction. Electronically signed by: Omar Hodge M.D. 12/04/24 20:[address] 12/04/24 18:58 Exam(s): CT HEAD Without Contrast EXAM: CT Head Without Intravenous Contrast CLINICAL HISTORY: Reason for exam: vomitting. TECHNIQUE: Axial computed tomography images of the head/brain without intravenous contrast. CTDI is 36 mGy and DLP is 624 mGy-cm. Automated exposure control was utilized for the study. A dose lowering technique was utilized adhering to the principles of ALARA. COMPARISON: 04/12/24 FINDINGS: Brain: Generalized parenchymal volume loss. Periventricular and deep cerebral white matter hypoattenuation suggesting chronic small vessel ischemic change. Garcia-white matter differentiation maintained. No hemorrhage, mass effect, parenchymal edema, or midline shift. Ventricles: Unremarkable. No hydrocephalus. Bones/joints: Unremarkable. No acute fracture. Soft tissues: Unremarkable. Vasculature: Intracranial atherosclerosis. Sinuses: Mucosal thickening in the maxillary sinuses. Mastoid air cells: Right mastoid effusion. Orbits: Lens replacements. IMPRESSION: No acute intracranial process. Electronically signed by: Omar Hodge M.D. 12/04/24 20:47 PM [facility] Narrative 1846: The patient was evaluated in room A12A. A complete history and physical exam was performed Cardiac monitoring: An order was placed for continuous cardiac monitoring. The monitor shows a rate of 90 with sinus rhythm interpreted by me External medical records reviewed from the half-way. There is a note from florina Morejon. According to her note, the patient was scheduled to be discharged on hospice care today and when they went to round today he was vomiting and confused. They reported he had abdominal pain. According to the documentation from the half-way the patient had a pulse of 114 and temperature of 38.1. According her documentation the patient had tenderness on palpation of the epigastric and umbilical area. They spoke with the stepson via phone and according to her note they did not want the patient to be discharged home and want him to go to the hospital and he was full code. Lab work that was conducted at the half-way today showed a ALT of 260 AST of 360 alkaline phosphatase of 406 total bilirubin 4.5. 2058:Vital signs stable. Patient remains afebrile. White blood cell count 8.93 hemoglobin 11.4 creatinine within normal limits. Total bilirubin 2.9 AST 280 ALT [address] head is unremarkable. CT abdomen pelvis is significant for gallbladder wall edema associated with mild wall thickening some layering gallbladder sludge raising the possibility for acute cholecystitis. While the patient does not have any fever or right upper quadrant tenderness here, it was documented at the half-way raising the possibility for ascending cholangitis. Based off this and the patient's labs it was thought that the patient may need ERCP. Spoke with Dr. Angela on-call GI who does state that he conducts ERCPs. He states to treat the patient with Rocephin and to admit to medicine and he will evaluate the patient. I did discuss with the patient's stepson Jae Russ [phone]. I described the patient's condition to have explained to him that he might need a surgical procedure or an ERCP. After hearing this, he stated to defer to his stepfather the patient however he stated he thinks that the patient should have all procedures necessary and that he would recommend full code. I did discuss the patient's labs and imaging results my conversations with the GI doctor as well as his stepson to the patient, and he is agreement that he would like everything done possible. 2110: Spoke with Dr. Helton from general surgery who agrees to be on consult when medicine admits to team. Discussed case with [facility] hospitalist Dr. Gasca states he will evaluate the patient for admission. Impression & Plan Acute cholecystitis Discharge Plan Visit Data Chief Complaint: Abdominal Pain Stated Complaint: abdominal pain ED Provider: Alex Abdul Discharge Problem: Acute cholecystitis Patient Disposition: Admitted As Inpatient Forms Stand Alone Forms: My [facility] Prescriptions Prescriptions: No Action (DME) Wheeled Walker Misc See Rx Instructions .Route Qty: 1 0RF Rx Instructions: Rollator walker with hand brakes and seat (DME) Portable Oxygen Misc See Rx Instructions .Route Qty: 1 0RF Rx Instructions: As directed/ 2.5 LPM cholecalciferol (vitamin D3) 1,000 unit (25 mcg) tablet 2,000 units PO QAM acetaminophen [Tylenol Extra Strength] 500 mg Tablet 500 mg PO Q6H PRN (Reason: Pain) furosemide 20 mg tablet See Rx Instructions .ROUTE .COMPLEX Rx Instructions: 20 mg orally ;take his lasix on Wednesday, Wed, , Wed. Hold lasix on ,,. check weight daily. take lasix on ,W,F if weight goes up 2lbs overnight or more than 5 pounds from his current baseline. diclofenac sodium [Voltaren Arthritis Pain] 1 % Gel 2 g EXT BID PRN (Reason: pain) Qty: 100 0RF metoprolol succinate 25 mg tablet extended release 24 hr 25 mg PO PM Qty: 30 0RF ipratropium-albuterol 0.5 mg-3 mg(2.5 mg base)/3 mL solution for nebulization 3 ml NEB QID PRN (Reason: Shortness Of Breath Or Wheezing) Qty: 90 0RF aspirin 81 mg Tablet,Delayed Release (Dr/Ec) 81 mg PO QAM Qty: 30 0RF tamsulosin 0.4 mg capsule 0.4 mg PO QAM Qty: 90 3RF gabapentin 300 mg capsule 300 mg PO BID PRN (Reason: pain) Qty: 60 5RF Arnuity Ellipta 100 mcg/actuation blister with device 1 inh inhalation DAILY Qty: 30 11RF Referrals Referrals: Corby Zuniga DO [Primary Care Provider] -
[2024-12-05] MEDS: metroNIDAZOLE 500 MG/100 ML BAG IV STA (00:10)
[2024-12-05] MEDS ORDERED: POLYETHYLENE (MIRALAX) 17 GM PACK PO PRN (01:05)
[2024-12-05] MEDS ORDERED: ALBUT/IPRATROP 3MG/0.5MG NEB 3 ML VIAL NEB PRN (01:05)
[2024-12-05] MEDS ORDERED: cefTRIAXone SODIUM 2,000 MG/50 ML BAG IV SCH (01:05)
[2024-12-05] MEDS ORDERED: ONDANSETRON INJ 2 MG/ML 2 ML VIAL IV PRN (01:05)
--- NOTE | 2024-12-05 01:05 | Billing Data ---
Date of Service December 05, 2024 Coding Level of Care Code 00483 INT INP/OBS CARE
[2024-12-05] MEDS: SODIUM CHLORIDE 0.9% 1,000 ML IV SCH (01:48)
--- OUTSIDE RECORDS SUMMARY | 2024-12-05 02:58 | External Medical Summary ---
Author Name Unknown Address Unknown Organization K09:[facility] [address] [place] [address] Laboratory Report Ordering Provider Test Date Status [place] [place] 12/04/2024 13:09:28 Final Observation Date Value Abnormality Reference (Units ) Status SYNC LEUKOCYTES IN BLOOD BY AUTOMATED COUNT 12/04/2024 13:09:28 10.75 4.00-10.80 (K/uL) Final Segs 12/04/2024 13:09:28 88.6 Above high normal 40.0-75.0 (%) Final Lymphs % 12/04/2024 13:09:28 4.1 Below low normal 18.0-42.0 (%) Final Monos 12/04/2024 13:09:28 7.0 1.0-11.0 (%) Final Eosinophils 12/04/2024 13:09:28 0.1 0.0-6.0 (%) Final Basos 12/04/2024 13:09:28 0.2 0.0-2.0 (%) Final Absolute Segs 12/04/2024 13:09:28 9.53 Above high normal 1.80-7.70 (K/uL) Final Lymphs, absolute 12/04/2024 13:09:28 0.44 Below low normal 1.00-4.80 (K/ul) Final Monos, Abs 12/04/2024 13:09:28 0.75 0.00-1.10 (K/uL) Final Eos, Abs 12/04/2024 13:09:28 0.01 0.00-0.70 (K/uL) Final Basos, Abs 12/04/2024 13:09:28 0.02 0.00-0.20 (K/uL) Final Performing Location [facility] [place] [address]
--- OUTSIDE RECORDS SUMMARY | 2024-12-05 02:58 | External Medical Summary | Summary of Care ---
Author Name Unknown Organization [facility] Address [address] [place] [address] Phone [phone] Care Team Providers Care Seed Collector Name Role Phone JilljaimejulesCorby ward Primary Care Provi gerda Reason for Visit * Reason Onset Date Comments Skilled Visit 11/27/2024 Encounter Details Date Type Department Care Team (Late st Contact Info) Description 11/27/2024 8:00 AM EST Residential Visit [facility], [address] [place] [address] Genevieve Hobbs PA-C [address] [place] [address] [place] [address] Bilateral pleural effusion*; Chronic diastolic congestive heart failure (HCC); Pneumonia of both lower lobes due to infectious organism; Chronic hypoxemic respiratory failure (HCC) Allergies No known active allergiesdocumented as of this encounter (statuses as of 11/28/2024) Medications Aspirin 81 MG Tablet Take 1 [...] the morning. Rinse mouth after use. Active Gabapentin 300 MG Oral Capsule (Neurontin) Take 1 Capsule by mouth 2 times a day as needed for Pain. 05/09/202 4 Active Ipratropium-Alb uterol 0.5-2.5 (3) MG/3ML [...] per application, twice daily as needed Active predniSONE 10 MG Oral Tablet (Deltasone) Take 4 tabs for 3 days, 3 tabs for 3 days, 2 tabs for 3 days, 1 tabs for 3 days Do not start before November 17, 2024. 4 11/29/19 25 Active Furosemide 20 MG Oral Tablet (Lasix) Take 1 Tablet by mouth in the morning. 4 Active methIMAzole 5 MG Oral Tablet (Tapazole) Take 1 Tablet by mouth in the morning. with food.. 4 Active documented as of this encounter (statuses as of 11/28/2024) Active Problems Problem Noted Date Diagnosed Date Chronic hypoxemic respiratory failure 11/16/2024 BPH with obstruction/lower urinary tract symptom s [...] as of this encounter (statuses as of 11/28/2024) Resolved Problems Problem Noted Date Diagnosed Date Resolved Date DNR (do not resuscitate) 03/30/2024 Post herpetic neuralgia 01/26/2020 05/0 07/2024 ADVANCE DIRECTIVE INFORMATION 10/06/2007 09/25/2024 Overview (10/06/2007): No, Advance Directive brochure given to patient. documented as of this encounter (statuses as of 11/28/2024) Social History Tobacco Use Types Packs/Day Years [...] Sign Reading Time Taken Comments Blood Pressure 122/78 11/27/2024 5:18 PM EST Pulse 96 11/27/2024 5:18 PM EST Temperature 36.6 C (97.8 F) 11/27/2024 5:18 PM ES T Respiratory Rate 18 11/27/2024 5:18 PM EST Oxygen Saturation 99% 11/27/2024 5:18 PM EST Inhaled Oxygen Concentration - - Weight 66.6 kg (146 lb 12.8 oz) 11/27/2024 5:18 PM EST Height - - Body Mass Index 21.06 07/24/2015 7:14 AM EDT documented in this encounter Plan of Treatment Health Maintenance Due Date Last Done Comments Depression Screening 1952 Albumin/Creatinine Ratio 1958 Alpha-1 Antitrypsin 1958 CKD PHOS USE SMARTSET 41981 1956 DTap/Tdap Vaccines (1 - Tdap) 1957 Pneumococcal Vaccine: 50+ Years (1 of 2 - PCV) 1957 COVID-19 Vaccine (2 - Moderna risk series) 10/26/2023 09/28/2023 *COPD SEVERITY VERIFIED BY PFT 04/01/2024 Influenza Vaccine (FLU shot) (#1) 2024 CKD HGB USE SMARTSET 70437 11/20/202511/20, 11/20/2024, 11/06/2024, Additional history exists O2 ASSESSMENT COMPLETED IN PAST YEAR FOR COPD 11/27/2025 11/27/2024 Zoster Vaccines Completed 02/26/2021, 10/29/2020 HPV (Gardasil) [...] this encounter Medical Devices Implanted Type Area International Logistics Coordinator Device Identifier Shelf Expiration Date Model / Serial / Lot Bard Powerport Single Mercedes Implanted:Qty: 1 on 07/24/2015 by Malina Moreno MD at OR [facility] Left: Chest CR BARD : ACCESS SYSTEMS 11/23/2016 [id number] / / [id number] documented as of this encounter Visit Diagnoses [...] Advanced care planning/counseling discussion Other specified counseling Bilateral pleural effusion- Primary Unspecified pleural effusion Chronic diastolic congestive heart failure (HCC) Chronic diastolic heart failure Pneumonia of both lower lobes due to infectious organism Chronic hypoxemic respiratory failure (HCC) Chronic respiratory failure documented in this encounter Care Teams Seed Collector Relationship Specialty Start Date End Date Corby Zuniga DO [address] [place] [address] [place] [address] PCP - General Family Medicine 11/02/24 documented as of this encounter
--- OUTSIDE RECORDS SUMMARY | 2024-12-05 02:58 | External Medical Summary | Summary of Care ---
Author Name Unknown Organization [facility] Address [address] [place] [address] Phone [phone] Care Team Providers Care Head Stock Operator Name Role Phone JilljaimejulesCorby ward Primary Care Provi gerda Reason for Visit * Reason Onset Date Comments [facility] Visit 11/30/2024 Regulatory Skilled Visit 11/30/2024 Encounter Details Date Type Department Care Team (Late st Contact Info) Description 11/29/2024 11:00 AM EST [facility] [place] [facility] [address] [place] [address] Genevieve Hobbs PA-C [address] [place] [address] Chronic hypoxemic respiratory failure (HCC)*; Orthostatic hypotension; BPH with obstruction/lower urinary tract symptoms Allergies No known active allergiesdocumented as of this encounter (statuses as of 11/30/2024) Medications Aspirin 81 MG Tablet Take 1 [...] per application, twice daily as needed Active Furosemide 20 MG Oral Tablet (Lasix) Take 1 Tablet by mouth in the morning. Active methIMAzole 5 MG Oral Tablet (Tapazole) Take 1 Tablet by mouth in the morning. with food.. Active documented as of this encounter (statuses as of 11/30/2024) Active Problems Problem Noted Date Diagnosed Date [...] as of this encounter (statuses as of 11/30/2024) Resolved Problems Problem Noted Date Diagnosed Date Resolved Date DNR (do not resuscitate) 03/30/2024 Post herpetic neuralgia 01/26/2020 05/0 07/2024 ADVANCE DIRECTIVE INFORMATION 10/06/2007 09/25/2024 Overview (10/06/2007): No, Advance Directive brochure given to patient. documented as of this encounter (statuses as of 11/30/2024) Social History Tobacco Use Types Packs/Day Years [...] Sign Reading Time Taken Comments Blood Pressure 120/64 11/29/2024 2:13 PM EST Pulse 90 11/29/2024 2:13 PM EST Temperature 36.6 C (97.9 F) 11/29/2024 2:13 PM ES T Respiratory Rate 18 11/29/2024 2:13 PM EST Oxygen Saturation 100% 11/29/2024 2:13 PM EST on O2 Inhaled Oxygen Concentration - - Weight - - Height - - Body Mass Index - - documented in this encounter Plan of Treatment Health Maintenance Due Date Last Done Comments Depression Screening 1952 Albumin/Creatinine Ratio 1956 Alpha-1 Antitrypsin 1956 CKD PHOS USE SMARTSET 33568 1956 DTap/Tdap Vaccines (1 - Tdap) 1957 Pneumococcal Vaccine: 50+ Years (1 of 2 - PCV) 1957 COVID-19 Vaccine (2 - Moderna risk series) 10/26/2023 09/28/2023 *COPD SEVERITY VERIFIED BY PFT 04/01/2024 Influenza Vaccine (FLU shot) (#1) 2024 CKD HGB USE SMARTSET 19760 11/20/202511/20, 11/20/2024, 11/06/2024, Additional history exists O2 [...] this encounter Medical Devices Implanted Type Area Steamer Tender Device Identifier Shelf Expiration Date Model / Serial / Lot Bard Powerport Single Mercedes Implanted:Qty: 1 on 07/24/2015 by Malina Moreno MD at OR [facility] Left: Chest CR BARD : ACCESS SYSTEMS 11/23/2016 [id number] / / [id number] documented as of this encounter Visit Diagnoses [...] Advanced care planning/counseling discussion Other specified counseling Chronic hypoxemic respiratory failure (HCC)- Primary Chronic respiratory failure Orthostatic hypotension BPH with obstruction/lower urinary tract symptoms Hypertrophy of prostate with urinary obstruction and other lower urinary tract symptoms (LUTS) documented in this encounter Care Teams Head Stock Operator Relationship Specialty Start Date End Date Corby Zuniga DO [address] [place], [place] [address] [id number] PCP - General Family Medicine 11/02/24 documented as of this encounter
--- OUTSIDE RECORDS SUMMARY | 2024-12-05 02:58 | External Medical Summary ---
Author Name Unknown Address Unknown Organization K09:[facility] [address] [place] [address] Laboratory Report Ordering Provider Test Date Status [place] [place] 12/04/2024 13:09:28 Final Observation Date Value Abnormality Reference (Units ) Status BUN 12/04/2024 13:09:28 24 Above high normal 6-20 (mg/dL) Final Creatinine 12/04/2024 13:09:28 0.9 0.6-1.2 (mg/dL) Final Glomerular filtration rate/1.73 sq M.predicted [Volume Rate/Area] in Serum, Plasma or Blood by Creatinine-based formula (CKD-EPI) 12/04/2024 13:09:28 83 >=60 (mL/min) Final eGFR is calculated based on the CKD-EPI 2020 equation. Sodium 12/04/2024 13:09:28 131 Below low normal 135 -146 (mmol/L) Final Potassium 12/04/2024 13:09:28 3.9 3.5-5.1 (m mol/L) Final Cl 12/04/2024 13:09:28 94 Below low normal 98- 107 (mmol/L) Final CO2 12/04/2024 13:09:28 26 22-32 (mmo l/L) Final Anion gap 12/04/2024 13:09:28 11 7-15 (mmol /L) Final Glucose 12/04/2024 13:09:28 155 Above high normal 70 -120 (mg/dL) Final Albumin 12/04/2024 13:09:28 3.1 Below low normal 3.8 -5.0 (g/dL) Final AST (Aspartate aminotransferase) 12/04/2024 13:09:28 360 Above high normal 10-50 (U/L) Final Alk Phos 12/04/2024 13:09:28 406 Above high normal 35 -130 (U/L) Final Bilirubin, Total 12/04/2024 13:09:28 4.5 Above high no rmal <=1.2 (mg/dL) Final Calcium 12/04/2024 13:09:28 8.5 8.4-10.2 ( mg/dL) Final Protein 12/04/2024 13:09:28 5.9 Below low normal 6.0 -8.3 (g/dL) Final ALT (Alanine aminotransferase) 12/04/2024 13:09:28 260 Above high normal 10-50 (U/L) Final Performing Location [facility] [address] [place] [address]
--- OUTSIDE RECORDS SUMMARY | 2024-12-05 02:58 | External Medical Summary ---
Author Name Unknown Address Unknown Organization K09:[facility] [address] [place] [address] Laboratory Report Ordering Provider Test Date Status [place] [place] 12/04/2024 13:09:28 Final Observation Date Value Abnormality Reference (Units ) Status WBC, Total 12/04/2024 13:09:28 10.75 4.00-10.8 0 (K/uL) Final RBC 12/04/2024 13:09:28 3.99 4.50-5.25 (M/uL) Final Hemoglobin 12/04/2024 13:09:28 11.3 Below low normal 14 .0-16.8 (g/dL) Final HCT 12/04/2024 13:09:28 33.9 Below low normal 40. 0-48.4 (%) Final MCV 12/04/2024 13:09:28 85.0 82.0-99.5 (fL) Final MCH 12/04/2024 13:09:28 28.3 27.0-34.0 (pg) Final MCHC 12/04/2024 13:09:28 33.3 32.0-36.0 (g/dL) Final RDW 12/04/2024 13:09:28 15.7 11.5-15.5 (%) Final Platelets 12/04/2024 13:09:28 256 140-400 (K /uL) Final MPV 12/04/2024 13:09:28 10.1 6.6-11.1 ( fL) Final Performing Location [facility] [address] [place] [address]
--- OUTSIDE RECORDS SUMMARY | 2024-12-05 02:58 | External Medical Summary | Summary of Care ---
Author Name Unknown Organization [facility] Address [address] [place] [address] Phone [phone] Care Team Providers Care Medical Technicians Name Role Phone JilljaimejulesCorby ward Primary Care Provi gerda Reason for Visit * Reason Onset Date Comments Skilled Visit 12/01/2024 Encounter Details Date Type Department Care Team (Late st Contact Info) Description 12/01/2024 10:00 AM EST [facility]sp Visit [facility], [address] [place] [address] Genevieve Hobbs PA-C [address] [place] [address] [place] [address] Chronic hypoxemic respiratory failure (HCC)*; Generalized weakness; History of pneumonia; COPD, severe (HCC); Chronic diastolic congestive heart failure (HCC) Allergies No known active allergiesdocumented as of this encounter (statuses as of 12/01/2024) Medications Aspirin 81 MG Tablet Take 1 [...] as of this encounter (statuses as of 12/01/2024) Active Problems Problem Noted Date Diagnosed Date [...] as of this encounter (statuses as of 12/01/2024) Resolved Problems Problem Noted Date Diagnosed Date Resolved Date DNR (do not resuscitate) 03/30/2024 Post herpetic neuralgia 01/26/2020 05/0 07/2024 ADVANCE DIRECTIVE INFORMATION 10/06/2007 09/25/2024 Overview (10/06/2007): No, Advance Directive brochure given to patient. documented as of this encounter (statuses as of 12/01/2024) Social History Tobacco Use Types Packs/Day Years [...] Sign Reading Time Taken Comments Blood Pressure 109/68 12/01/2024 12:02 PM EST Pulse 80 12/01/2024 12:02 PM EST Temperature 36.7 C (98.1 F) 12/01/2024 12:[address] Respiratory Rate 18 12/01/2024 12:02 PM EST Oxygen Saturation 95% 12/01/2024 12:02 PM EST on O2 Inhaled Oxygen Concentration - - Weight - - Height - - Body Mass Index - - documented in this encounter Progress Notes * Genevieve Hobbs PA-C - 12/01/2024 10:40 AM EST Name: Sohan Gaytan Date of : 1940 This note pertains to [facility] at [facility]. Please see facility record for original note. This note is not to be edited or addended in [employer]. Editing or addending needs to occur in the facility's medical record. Chief Complaint Patient presents with Skilled Visit TRANSITION EVENT: Type: Skilled visit Date: December 01 Code Status: Full Code SUBJECTIVE: Sohan Gaytan is a 84 year old male HPI: short-term rehab pt with history of severe COPD, CHF, recent admissions x 2 for acute on chronic respiratory failure with pneumonia/COPD exacerbation/pleural effusions, is seen in follow up. He has completed prednisone taper and course of antibiotics from recent pneumonia/COPD exacerbation. He denies chest pain, wheezing, dyspnea, and admits to a mild cough in the AM. He denies headache, dizziness, chest pain, fever, chills, body aches, abdominal pain ,nausea, vomiting, diarrhea. He has been refusing his daily weights. PMH: Patient Active Problem List Diagnosis LYMPHOMAS NEC [...] neuralgia Chronic diastolic congestive heart failure (HCC) Chronic hypoxemic respiratory failure (HCC) Review of patient's allergies indicates: No Known Allergies Medications: Pt's current medication list is maintained at [facility] and was reviewed at this visit. Review of Systems: Per HPI OBJECTIVE: BP 109/68 | Pulse 80 | Temp 36.7 C (98.1 F) | Resp 18 | SpO2 95% Comment: on O2 General: alert and no distress Heart: regular rate & rhythm Lungs: chest symmetric with normal AP diameter, no chest deformities noted, no chest wall tenderness, lungs clear to auscultation, with no significant wheezes, rhonchi, nor rales noted, breathing appears unlabored, nasal O2 in place Abdomen: abdomen soft, non-tender, normal bowel sounds, no masses or organomegaly, and no rebound or guarding Extremities: no leg edema ASSESSMENT/PLAN: half-way chart (outside system) reviewed for vital signs, nursing notes, CODE STATUS, and most up to date medication list Most recent physical and occupational therapy notes reviewed Chronic hypoxemic respiratory failure (HCC) (Primary) At baseline, no current exacerbation Continue supplemental O2 and duonebs + arnuity Generalized weakness Continue PT and OT History of pneumonia Symptoms improved COPD, severe (HCC) At baseline Chronic diastolic congestive heart failure (HCC) Continue lasix 20 mg daily + daily weights (weights trending down with recent attempts at diuresis,though he has refused daily weights x 2 this week) Follow up: next week and as needed 34 total minutes were spent in this visit. This total time includes pre-visit chart review, obtaining / reviewing separately obtained medical history, and performing the medically appropriate historyand exam. It also includes patient / family education and counseling, placing the appropriate orders, placing referrals and communicating with other medical providers, documenting clinical information in the EHR, interpreting / communicating results, and coordinating patient care. documented in this encounter Plan of Treatment Health Maintenance Due Date Last Done Comments Depression Screening 1952 Albumin/Creatinine Ratio 1956 Alpha-1 Antitrypsin 1958 CKD PHOS USE SMARTSET 82484 1956 DTap/Tdap Vaccines (1 - Tdap) 1957 Pneumococcal Vaccine: 50+ Years (1 of 2 - PCV) 1957 COVID-19 Vaccine (2 - Moderna risk series) 10/26/2023 09/28/2023 *COPD SEVERITY VERIFIED BY PFT 04/01/2024 Influenza Vaccine (FLU shot) (#1) 2024 CKD HGB USE SMARTSET 06589 11/20/202511/20, 11/20/2024, 11/06/2024, Additional history exists O2 ASSESSMENT COMPLETED IN PAST YEAR FOR COPD 11/29/2025 11/29/2024 Zoster Vaccines Completed 02/26/2021, 10/29/2020 HPV (Gardasil) [...] this encounter Medical Devices Implanted Type Area Licensed Surveyor Device Identifier Shelf Expiration Date Model / Serial / Lot Bard Powerport Single Mercedes Implanted:Qty: 1 on 07/24/2015 by Malina Moreno MD at OR [facility] Left: Chest CR BARD : ACCESS SYSTEMS 11/23/2016 [id number] / / [id number] documented as of this encounter Visit Diagnoses [...] respiratory failure (HCC)- Primary Chronic respiratory failure Generalized weakness Other malaise and fatigue History of pneumonia Personal history of pneumonia (recurrent) COPD, severe (HCC) Chronic airway obstruction, not elsewhere classified Chronic diastolic congestive heart failure (HCC) Chronic diastolic heart failure documented in this encounter Care Teams Medical Technicians Relationship Specialty Start Date End Date Corby Zuniga DO [address] [place] [address] [place] [address] PCP - General Family Medicine 11/02/24 documented as of this encounter
--- OUTSIDE RECORDS SUMMARY | 2024-12-05 02:59 | External Medical Summary | Summary of Care ---
Author Name Unknown Organization [facility] Address [address] [place] [address] Phone [phone] Care Team Providers Care Director Of Materials Management Name Role Phone Corby Zuniga Primary Care Provi gerda Encounter Details Date Type Department Care Team (Late st Contact Info) Description 11/20/2024 Population Health External Data Unspecified Department Allergies No known active allergiesdocumented as of this encounter (statuses as of 11/20/2024) Medications Aspirin 81 MG Tablet Take 1 [...] November 17, 2024. 4 11/29/19 25 Active Cefpodoxime Proxetil 200 MG Oral Tablet Take 1 Tablet by mouth in the morning and 1 Tablet before bedtime. 4 Active Furosemide 20 MG Oral Tablet (Lasix) Take 1 Tablet by mouth in the morning. 4 Active methIMAzole 5 MG Oral Tablet (Tapazole) Take 1 Tablet by mouth in the morning. with food.. 4 Active documented as of this encounter (statuses as of 11/20/2024) Active Problems Problem Noted Date Diagnosed Date [...] as of this encounter (statuses as of 11/20/2024) Resolved Problems Problem Noted Date Diagnosed Date Resolved Date DNR (do not resuscitate) 03/30/2024 Post herpetic neuralgia 01/26/2020 05/0 07/2024 ADVANCE DIRECTIVE INFORMATION 10/06/2007 09/25/2024 Overview (10/06/2007): No, Advance Directive brochure given to patient. documented as of this encounter (statuses as of 11/20/2024) Social History Tobacco Use Types Packs/Day Years [...] No 06/27/2024 Does the household have a [facility] source of income? (Household - for ages [...] Alpha-1 Antitrypsin 1958 CKD PHOS USE SMARTSET 89089 1958 DTap/Tdap Vaccines (1 - Tdap) 1957 Pneumococcal Vaccine: 50+ Years (1 of 2 - PCV) 1957 COVID-19 Vaccine (2 - Moderna risk series) 10/26/2023 09/28/2023 *COPD SEVERITY VERIFIED BY PFT 04/01/2024 Influenza Vaccine (FLU shot) (#1) 2024 CKD HGB USE SMARTSET 16939 11/06/202511/20, 11/20/2024, 11/06/2024, Additional history exists O2 ASSESSMENT COMPLETED IN PAST YEAR FOR COPD 11/17/2025 11/17/2024 Zoster Vaccines Completed 02/26/2021, 10/29/2020 HPV (Gardasil) [...] this encounter Medical Devices Implanted Type Area Pellet Preparation Operator Device Identifier Shelf Expiration Date Model / Serial / Lot Bard Powerport Single Mercedes Implanted:Qty: 1 on 07/24/2015 by Malina Moreno MD at OR [facility] Left: Chest CR BARD : ACCESS SYSTEMS 11/23/2016 [id number] / / [id number] documented as of this encounter Care Teams Director Of Materials Management Relationship Specialty [place] [address] [place] [address] [place] [id number] PCP - General Family Medicine 11/02/24 documented as of this encounter
--- OUTSIDE RECORDS SUMMARY | 2024-12-05 02:59 | External Medical Summary ---
Author Name Unknown Address Unknown Organization K0G:[facility] [address] [place] [id number] Laboratory Report Ordering Provider Test Date Status [place] 11/20/2024 06:08:00 Final Observation Date Value Abnormality Reference (Units ) Status WBC, Total 11/20/2024 06:08:00 3.75 Below low normal 4. 00-10.80 (K/uL) Final RBC 11/20/2024 06:08:00 3.90 4.50-5.25 (M/uL) Final Hemoglobin 11/20/2024 06:08:00 11.0 Below low normal 14 .0-16.8 (g/dL) Final HCT 11/20/2024 06:08:00 32.9 Below low normal 40. 0-48.4 (%) Final MCV 11/20/2024 06:08:00 84.4 82.0-99.5 (fL) Final MCH 11/20/2024 06:08:00 28.2 27.0-34.0 (pg) Final MCHC 11/20/2024 06:08:00 33.4 32.0-36.0 (g/dL) Final RDW 11/20/2024 06:08:00 15.3 11.5-15.5 (%) Final Platelets 11/20/2024 06:08:00 218 140-400 (K /uL) Final MPV 11/20/2024 06:08:00 10.0 6.6-11.1 ( fL) Final Performing Location [facility] [address] [place] [id number]
--- OUTSIDE RECORDS SUMMARY | 2024-12-05 02:59 | External Medical Summary ---
Author Name Unknown Address Unknown Organization K0G:[facility] [address] [place] [id number] Laboratory Report Ordering Provider Test Date Status [place] [place] 11/20/2024 06:08:00 Final Observation Date Value Abnormality Reference (Units ) Status SYNC LEUKOCYTES IN BLOOD BY AUTOMATED COUNT 11/20/2024 06:08:00 3.75 Below low normal 4.00-10.80 (K/uL) Final Segs 11/20/2024 06:08:00 72.3 40.0-75.0 (%) Final Lymphs % 11/20/2024 06:08:00 10.7 Below low normal 18.0-42.0 (%) Final Monos 11/20/2024 06:08:00 16.5 Above high normal 1.0-11.0 (%) Final Eosinophils 11/20/2024 06:08:00 0.5 0.0-6.0 (%) Final Basos 11/20/2024 06:08:00 0.0 0.0-2.0 (%) Final Absolute Segs 11/20/2024 06:08:00 2.71 1.80-7.70 (K/uL) Final Lymphs, absolute 11/20/2024 06:08:00 0.40 Below low normal 1.00-4.80 (K/ul) Final Monos, Abs 11/20/2024 06:08:00 0.62 0.00-1.10 (K/uL) Final Eos, Abs 11/20/2024 06:08:00 0.02 0.00-0.70 (K/uL) Final Basos, Abs 11/20/2024 06:08:00 0.00 0.00-0.20 (K/uL) Final Performing Location [facility] [place] [address] [place] [id number]
--- OUTSIDE RECORDS SUMMARY | 2024-12-05 02:59 | External Medical Summary | Summary of Care ---
Author Name Unknown Organization [facility] Address [address] [place] [address] Phone [phone] Care Team Providers Care Mushroom Packer Name Role Phone Corby Zuniga Primary Care Provi gerda Encounter Details Date Type Department Care Team (Late st Contact Info) Description 11/23/2024 Population Health External Data Unspecified Department Allergies No known active allergiesdocumented as of this encounter (statuses as of 11/23/2024) Medications Aspirin 81 MG Tablet Take 1 [...] as of this encounter (statuses as of 11/23/2024) Active Problems Problem Noted Date Diagnosed Date [...] as of this encounter (statuses as of 11/23/2024) Resolved Problems Problem Noted Date Diagnosed Date Resolved Date DNR (do not resuscitate) 03/30/2024 Post herpetic neuralgia 01/26/2020 05/0 07/2024 ADVANCE DIRECTIVE INFORMATION 10/06/2007 09/25/2024 Overview (10/06/2007): No, Advance Directive brochure given to patient. documented as of this encounter (statuses as of 11/23/2024) Social History Tobacco Use Types Packs/Day Years [...] No 06/27/2024 Does the household have a [facility] source of income? (Household - for ages [...] Alpha-1 Antitrypsin 1956 CKD PHOS USE SMARTSET 05984 1956 DTap/Tdap Vaccines (1 - Tdap) 1957 Pneumococcal Vaccine: 50+ Years (1 of 2 - PCV) 1957 COVID-19 Vaccine (2 - Moderna risk series) 10/26/2023 09/28/2023 *COPD SEVERITY VERIFIED BY PFT 04/01/2024 Influenza Vaccine (FLU shot) (#1) 2024 CKD HGB USE SMARTSET 63283 11/20/202511/20, 11/20/2024, 11/06/2024, Additional history exists O2 ASSESSMENT COMPLETED IN PAST YEAR FOR COPD 11/20/2025 11/20/2024 Zoster Vaccines Completed 02/26/2021, 10/29/2020 HPV (Gardasil) [...] this encounter Medical Devices Implanted Type Area Cook Helper Juice Device Identifier Shelf Expiration Date Model / Serial / Lot Bard Powerport Single Mercedes Implanted:Qty: 1 on 07/24/2015 by Malina Moreno MD at [facility] Left: Chest CR BARD : ACCESS SYSTEMS 11/23/2016 [id number] / / [id number] documented as of this encounter Care Teams Mushroom Packer Relationship Specialty Start Date End Date Corby Zuniga DO [address] [place] [address] [place] [id number] PCP - General Family Medicine 11/02/24 documented as of this encounter
--- OUTSIDE RECORDS SUMMARY | 2024-12-05 02:59 | External Medical Summary | Summary of Care ---
Author Name Unknown Organization [facility] Address [address] [place] [address] Phone [phone] Care Team Providers Care Motor Operator Name Role Phone JilljaimejulesCorby ward Primary Care Provi gerda Reason for Visit * Reason Onset Date Comments Long Term Visit - Readmission 11/16/2024 Encounter Details Date Type Department Care Team (Latest Contact Info) Description 11/16/2024 2:30 PM EST Long Term Visit [address] [place] [address] Cash Morley MD [address] [place] [address] [place] [id number] Pneumonia of right lower lobe due to infectious organism*; COPD exacerbation (HCC); Adenocarcinoma of right lung (HCC); Chronic hypoxemic respiratory failure (HCC); Chronic diastolic congestive heart failure (HCC); Hyponatremia; Other microscopic hematuria; Pulmonary emphysema, unspecified emphysema type (HCC); Hyperthyroidism; Stage 3a chronic kidney disease (HCC); Primary pulmonary hypertension (HCC); BPH with obstruction/lower urinary tract symptoms; 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 03/30/20 Active Ipratropium-Al buterol 0.5-2.5 (3) MG/3ML Inhalation Solution (Duoneb) Inhale 3 mL via nebulizer every 4 hours as needed for Shortness of Breath. 180 mL 2 03/30/20 Active Tamsulosin HCl 0.4 MG Oral Capsule [...] Do not start before November 17, 2024. 11/17/20 24 025 Active Cefpodoxime Proxetil 200 MG Oral Tablet Take 1 Tablet by mouth in the morning and 1 Tablet before bedtime. 11/16/20 Active Furosemide 20 MG Oral Tablet (Lasix) Take 1 Tablet by mouth in the morning. 11/16/20 Active methIMAzole 5 MG Oral Tablet (Tapazole) Take 1 Tablet by mouth in the morning. with food.. 11/16/20 Active Furosemide 20 MG Oral Tablet (Lasix) Take 1 Tablet by mouth in the morning. 03/30/20 24 024 Discontinued methIMAzole 5 MG Oral Tablet (Tapazole) Take 1 Tablet by mouth in the morning. with food.. 03/30/20 24 024 Discontinued Furosemide 20 MG Oral Tablet (Lasix) 20 mg daily Tues, Thurs, Sat, and Sun. 20 mg on MWF only if weight increases by 2 pounds overnight or 5 pounds from baseline 11/16/20 24 024 Discontinued documented as of this encounter (statuses as of 11/16/2024) Active Problems Problem Noted Date Diagnosed Date [...] as of this encounter (statuses as of 11/16/2024) Resolved Problems Problem Noted Date Diagnosed Date Resolved Date DNR (do not resuscitate) 03/30/2024 Post herpetic neuralgia 01/26/2020 05/0 07/2024 ADVANCE DIRECTIVE INFORMATION 10/06/2007 09/25/2024 Overview (10/06/2007): No, Advance Directive brochure given to patient. documented as of this encounter (statuses as of 11/16/2024) Social History Tobacco Use Types Packs/Day Years [...] Progress Notes * Cash Morley MD - 11/16/2024 4:07 PM EST READMISSION NOTE TRANSITION EVENT: Type: Readmission to SNF from Hospital Date: November 16 Code Status: Full Code Subjective: Sohan Gaytan is a 84 year old male. Date of : 1940 Chief Complaint Patient presents with Long Term Visit - Readmission This note pertains to care provided at [facility]. Please see facility medical record for original note. This note is not to be edited or addended in [facility]. Editing or addending needs to occur in the facilities medical record. S: Sohan Gaytan has been readmitted to [facility] from [facility] for PT and OT. Readmitted for: rehabilitation Patient recently admitted to [facility] on 11/02/24 for PT/OT after recent admission with right middleand lower lobe pneumonia with sputum cultures positive for Moraxella catarrhalis and Strep pneumo as well as CHF exacerbation. Patient also has history notable for stage 3 lung cancer and h/o B cell l ymphoma. Patient was treated with Zosyn and then Augmentin during that admission. Patient was here for rehab but developed hypoxia despite 5 L of oxygen, tachycardia, and tachypnea on 11/13/24 and was sent to ED for evaluation. In the ED, CBC showed WBC of 4.85, hemoglobin of 13.2. Sodium was 127. BUN was 29 and creatinine 1.07. UA was negative. Resp PCR for influenza, covid andRSV was negative. Liver tests were normal. Lactate was 1.9. CXR showed right lower lobe infiltrate. Patient was admitted for concern of COPD exacerbation versus healthcare associated pneumonia. He was started on IV Vancomycin and Cefepime as well as IV Solu-Medrol. He was given routine Duonebs. Hispulse ox improved to 92% on oxime mask. Patient improved with above treatment and his oxygen was weaned down to 2 L continuously on discharge. He is was discharged on a prednisone taper and 3 more days of cefpodoxime. UA showed 2+ blood. Recommended to consider urology as outpatient. Was also hyponatremic with a lowof 127 on 11/13/24. Sodium was 129 on discharge. Patient is readmitted for PT/OT. He states he is feeling "100%" better. He states his breathing is much better than it was. He denies chest pain, cough or congestion. He states his appetite is very good. 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 Mancini [facility] 1977? varicous veins removed from right leg INSER TUNN ACC DEV;5 YRS/OLDER Left 07/24/2015 INSERT TUNNELED CENTRAL VENOUS ACCESS WITH SUBQ PORT performed by Malina Moreno MD at [facility] PROCEDURE - GENERAL Left 02/18/[address]stephen Helton REMOVE CATARACT, INSERT LENS PROSTH 11/22/2000 Cataract Removal;Dr. Field Family History Problem Relation Name Age of Onset Cancer Mother breast cancer Diabetes Father Family Status Relation Status Mo at age 71? breast cancer with mets Fa at age 91 kidney failure Sis Alive Bro Alive Paulino Alive Social History Socioeconomic History Marital status: Spouse name: Not on file Number of children: Not on file Years of education: Not on file Highest education level: Not on file Occupational History Not on file Tobacco Use Smoking status: Former Current packs/day: 0.00 Average packs/day: 1 pack/day for 40.0 years (40.0 ttl pk-yrs) Types: Cigarettes Start date: 03/20/1965 Quit date: 03/20/2005 Years since quittin.6 Smokeless tobacco: Never Substance and Sexual Activity Alcohol use: Yes Alcohol/week: 7.0 standard drinks of alcohol Types: 7 12 oz of beer per week Comment: 2-3 beers per day Drug use: No Sexual activity: Yes Partners: Female Other Topics Concern Not on file Social History Narrative Not on file Social Needs Financial Resource Strain: Low Risk (06/27/2024) Financial Resource Strain Do you have any trouble paying for your medications, or do you think you might in the future? (Adult - for ages 18 years and over): No Does your family have trouble paying for medicine? (Household - for ages 0-17 years): Not on file Food Insecurity: No Food Insecurity (06/27/2024) Food Insecurity Do you need food for this week? (Adult - for ages 18 years and over): No Are you able to get enough food for your family? (Household - for ages 0-17 years): Not on file Does your family need food this week? (Household - for ages 0-17 years): Not on file Do you always have enough food for your family? (Household - for ages 0-17 years): Not on file Transportation Needs: No Transportation Needs (06/27/2024) Transportation Needs Do you have trouble getting a ride to medical visits or work? (Adult - for ages 18 years and over):Not on file Does your family have a hard time getting a ride to doctors visits? (Household - for ages 0-17 years): Not on file Has lack of transportation kept you from medical appointments, meetings, work, or from getting things needed for daily living? Check all that apply. (Adult - for ages 18 years and over): No Do you (or your family) have trouble finding or paying for a ride (transportation)? (Household - for ages 0-17 years): Not on file Social Connections: Socially Integrated (06/27/2024) Social Connections How often do you feel lonely or isolated from those around you? (Adult - for ages 18 years and over): Never Housing Stability: Low Risk (06/27/2024) Housing Stability Do you currently live in a intermediate or have no steady place to sleep at night? (Adult - for ages 18 years and over): No Do you think you are at risk of becoming homeless? (Adult - for ages 18 years and over): Not on file Does your family worry about paying for your home or becoming homeless? (Household - for ages 0-17 years): Not on file Are you homeless or worried that you might be in the future? (Adult - for ages 18 years and over): No Are you (or your family) homeless or worried that you might be in the future? (Household - for ages0-17 years): Not on file Review of patient's allergies indicates: No Known Allergies Review of Systems: Constitutional ROS: No change in weight, +generalized weakness, No fatigue and No fevers, sweats, or chills Eye ROS: No eye pain, redness, discharge and No diplopia Ear ROS: No ear pain, No drainage, No tinnitus or vertigo and No recent change in hearing Nose ROS: No nasal stuffiness and No significant epistaxis Mouth/Throat ROS: No thrush or No sore throat Pulmonary ROS: +per HPI Cardiovascular ROS: No chest pain, No shortness of breath, +stable mild edema, No palpitations and No syncope. +CHF Gastrointestinal ROS: No abdominal pain, No change in bowel habits, No significant change in appetite, No nausea, vomiting, diarrhea, or constipation and No dysphagia Musculoskeletal/Extremities ROS: +chronic shoulder pain Skin/Integumentary ROS: No rash and No itching Neurologic ROS: No headaches and No seizures Psychiatric ROS: No depression, No anxiety and No psychosis Sleep: No sleep disorders ADL skills dependent Ambulates with walker OBJECTIVE: PHYSICAL EXAM: I reviewed the most recent facilities vitals. Refer to vital signs flowsheet in alf chart. General: alert, no distress, elderly male Head: Normocephalic, No masses, lesions, tenderness or abnormalities Eye Exam: Conjunctiva are pink and non-injected, sclera clear Ears: External ears normal Nose: no mucosal erythema, no mucosal edema, no purulent discharge Oropharynx: no exudate, no erythema, lips, buccal mucosa, and tongue normal and mucous membranes are moist Neck: supple, no adenopathy, non-tender, neck veins flat, trachea midline Heart: regular rate & rhythm, no murmurs and no gallops Lungs: normal respiratory rate and rhythm, no chest wall tenderness, lungs clear to auscultation but diminished throughout all lung drummond Pulses: radial=2/4 Abdomen: abdomen soft, non-tender, normal bowel sounds and no masses or organomegaly Extremities: 1+ edema of right lower extremity and trace on the left, no clubbing, no cyanosis Neuro Exam: alert & oriented x 3 with fluent speech, no focal motor/sensory deficits Skin: skin color, texture, turgor are normal, no rashes or significant lesions ASSESSMENT: Pneumonia of right lower lobe due to infectious organism (Primary)--improved. Complete 1 dose of cefpodoxime tonight and then 3 more days of cefpodoxime. Complete prednisone taper as ordered startingtomorrow--40 mg x 3 days, 30 mg x 3 days, 20 mg x 3 days, 10 mg x 3 days and then stop. COPD exacerbation (HCC)--as above. Much improved. Complete prednisone taper as above. Adenocarcinoma of right lung (HCC)--stage 3. Was on hospice prior to last admission but revoked fortreatment and now opting for full code. Chronic hypoxemic respiratory failure (HCC)--continue oxygen Chronic diastolic congestive heart failure (HCC)--change Lasix to 20 mg daily and continue daily weights. Hyponatremia--check BMP 11/20/24. Other microscopic hematuria--2+ blood on admission UA. Consider urology referral per PCP as outpatient. 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 Hyperthyroidism--continue methimazole 5 mg daily. Stage 3a chronic kidney disease (HCC)--stable. Primary pulmonary hypertension (HCC)--continue oxygen. 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 PLAN: 1. Continue present medication(s): Begin medication(s): Methimazole 5 mg daily (?left off med list) Change dose of medication(s) to Change Lasix to 20 mg daily (instead of basing on weights MWF and daily the other days Schedule labs: CBC w/diff and BMP on 11/20/24. 2. Admission orders, medications, labs, hospital records and care plan reviewed. 3. Physical Therapy, Occupational Therapy, and Speech Therapy ordered. 4. Care plan reviewed. 5. Advanced Directives were discussed: Full Code 6. Intermediate Home Treatment Given: Antibiotic Oral Cefpodoxime and prednisone oral Electronically signed by: Cash Morley MD I spent a total of 40-54 minutes (exact time 47 mins) on the date of service in preparation, delivery, and documentation of the care provided to Sohan Gaytan excluding any time spent in the performance of separately billed services or time spent by another provider/QHP. documented in this encounter Plan of Treatment Health Maintenance Due Date Last Done Comments Depression Screening 1950 Albumin/Creatinine Ratio 1956 Alpha-1 Antitrypsin 1956 CKD PHOS USE SMARTSET 04398 1956 DTap/Tdap Vaccines (1 - Tdap) 1957 Pneumococcal Vaccine: 50+ Years (1 of 2 - PCV) 1957 COVID-19 Vaccine (2 - Moderna risk series) 10/26/2023 09/28/2023 *COPD SEVERITY VERIFIED BY PFT 04/01/2024 Influenza Vaccine (FLU shot) (#1) 2024 CKD HGB USE SMARTSET 78830 11/06/202511/06, 11/06/2024, 06/04/2023, Additional history exists O2 [...] this encounter Medical Devices Implanted Type Area Bargain Table Clerk Device Identifier Shelf Expiration Date Model / Serial / Lot Bard Powerport Single Mercedes Implanted:Qty: 1 on 07/24/2015 by Malina Moreno MD at [facility] Left: Chest CR BARD : ACCESS SYSTEMS 11/23/2016 [id number] / / [id number] documented as of this encounter Visit Diagnoses [...] discussion Other specified counseling Pneumonia of right lower lobe due to infectious organism- Primary COPD exacerbation (HCC) 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) Chronic hypoxemic respiratory failure (HCC) Chronic respiratory failure Chronic diastolic congestive heart failure (HCC) Chronic diastolic heart failure Hyponatremia Hyposmolality and/or hyponatremia Other microscopic hematuria Pulmonary emphysema, unspecified emphysema type (HCC) Hyperthyroidism Thyrotoxicosis without mention of goiter or other cause, without mention of thyrotoxic crisis or storm Stage 3a chronic kidney disease (HCC) Primary pulmonary hypertension (HCC) Primary pulmonary hypertension 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
--- OUTSIDE RECORDS SUMMARY | 2024-12-05 02:59 | External Medical Summary | Summary of Care ---
Author Name Unknown Organization [facility] Address [address] [place] [address] Phone [phone] Care Team Providers Care Laboratory Inspector Name Role Phone JilljaimejulesCorby ward Primary Care Provi gerda Reason for Visit * Reason Onset Date Comments Skilled Visit 11/17/2024 Encounter Details Date Type Department Care Team ([facility] st Contact Info) Description 11/17/2024 7:45 AM EST Halfway Visit [facility], [address] [place] [address] Genevieve Hobbs PA-C [address] [place] [address] [place] [address] COPD exacerbation (HCC)*; Pneumonia of right lower lobe due to infectious organism; Adenocarcinoma of right lung (HCC); Chronic hypoxemic respiratory failure (HCC); Chronic diastolic congestive heart failure (HCC); Skin breakdown Allergies No known active allergiesdocumented as of this encounter (statuses as of 11/17/2024) Medications Aspirin 81 MG Tablet Take 1 [...] as of this encounter (statuses as of 11/17/2024) Active Problems Problem Noted Date Diagnosed Date [...] tx for lymphomaNov 2012 Entered By: ROCK ASMANO PA-C Comment: scalp soft tissue mass-EBR -stable [...] as of this encounter (statuses as of 11/17/2024) Resolved Problems Problem Noted Date Diagnosed Date Resolved Date DNR (do not resuscitate) 03/30/2024 Post herpetic neuralgia 01/26/2020 05/0 07/2024 ADVANCE DIRECTIVE INFORMATION 10/06/2007 09/25/2024 Overview (10/06/2007): No, Advance Directive brochure given to patient. documented as of this encounter (statuses as of 11/17/2024) Social History Tobacco Use Types Packs/Day Years [...] Sign Reading Time Taken Comments Blood Pressure 119/61 11/17/2024 4:19 PM EST Pulse 75 11/17/2024 4:19 PM EST Temperature 36.4 C (97.5 F) 11/17/2024 4:19 PM ES T Respiratory Rate 20 11/17/2024 4:19 PM EST Oxygen Saturation 90% 11/17/2024 4:19 PM EST on O2 Inhaled Oxygen Concentration - - Weight - - Height - - Body Mass Index - - documented in this encounter Plan of Treatment Health Maintenance Due Date Last Done Comments Depression Screening 1950 Albumin/Creatinine Ratio 1956 Alpha-1 Antitrypsin 1956 CKD PHOS USE SMARTSET 87166 1956 DTap/Tdap Vaccines (1 - Tdap) 1957 Pneumococcal Vaccine: 50+ Years (1 of 2 - PCV) 1957 COVID-19 Vaccine (2 - Moderna risk series) 10/26/2023 09/28/2023 *COPD SEVERITY VERIFIED BY PFT 04/01/2024 Influenza Vaccine (FLU shot) (#1) 2024 CKD HGB USE SMARTSET 88608 11/06/202511/06, 11/06/2024, 06/04/2023, Additional history exists O2 [...] this encounter Medical Devices Implanted Type Area Intranet Developer Device Identifier Shelf Expiration Date Model / Serial / Lot Bard Powerport Single Mercedes Implanted:Qty: 1 on 07/24/2015 by Malina Moreno MD at [facility] Left: Chest CR BARD : ACCESS SYSTEMS 11/23/2016 [id number] / / [id number] documented as of this encounter Visit Diagnoses [...] Advanced care planning/counseling discussion Other specified counseling COPD exacerbation (HCC)- Primary Obstructive chronic bronchitis with exacerbation Pneumonia of right lower lobe due to infectious organism Adenocarcinoma of right lung (HCC) Chronic hypoxemic respiratory failure (HCC) Chronic respiratory failure Chronic diastolic congestive heart failure (HCC) Chronic diastolic heart failure Skin breakdown Other specified hypertrophic and atrophic condition of skin documented in this encounter Care Teams Laboratory Inspector Relationship Specialty Start Date End Date Corby Zuniga DO [address] [place] [address] [place] [id number] PCP - General Family Medicine 11/02/24 documented as of this encounter
--- OUTSIDE RECORDS SUMMARY | 2024-12-05 02:59 | External Medical Summary | Summary of Care ---
Author Name Unknown Organization [facility] Address [address] [place] [address] Phone [phone] Care Team Providers Care Apparel Designer Name Role Phone JilljaimejulesCorby ward Primary Care Provi gerda Reason for Visit * Reason Onset Date Comments Skilled Visit 11/23/2024 Encounter Details Date Type Department Care Team (Late st Contact Info) Description 11/23/2024 9:30 AM EST [facility] Visit [facility], [address] [place] [address] Genevieve Hobbs PA-C [address] [place] [address] [place] [address] Bilateral pleural effusion*; Chronic diastolic congestive heart failure (HCC); Pneumonia of both lower lobes due to infectious organism; COPD exacerbation (HCC) Allergies No known active allergiesdocumented as [...] No 06/27/2024 Does the household have a [facility] source [facility]? (Household - for ages [...] Sign Reading Time Taken Comments Blood Pressure 118/76 11/23/2024 3:21 PM EST Pulse 80 11/23/2024 3:21 PM EST Temperature 36.3 C (97.4 F) 11/23/2024 3:21 PM ES T Respiratory Rate 20 11/23/2024 3:21 PM EST Oxygen Saturation 94% 11/23/2024 3:21 PM EST on O2 Inhaled Oxygen Concentration - - Weight 66.3 kg (146 lb 3.2 oz) 11/23/2024 3:21 P M EST Height - - Body Mass Index 20.98 07/24/2015 7:14 AM EDT documented in this encounter Plan of Treatment Health Maintenance Due Date Last Done Comments Depression Screening 1952 Albumin/Creatinine Ratio 1958 Alpha-1 Antitrypsin 1958 CKD PHOS USE SMARTSET 63829 1956 DTap/Tdap Vaccines (1 - Tdap) 1957 Pneumococcal Vaccine: 50+ Years (1 of 2 - PCV) 1957 Zoster Vaccines (1 of 2) 1959 02/26/2021, 1206/2020 COVID-19 Vaccine (2 - Moderna risk series) 10/26/2023 09/28/2023 *COPD SEVERITY VERIFIED BY PFT 04/01/2024 Influenza Vaccine (FLU shot) (#1) 2024 CKD HGB USE SMARTSET 01895 11/20/202511/20, 11/20/2024, 11/06/2024, Additional history exists O2 ASSESSMENT COMPLETED IN PAST YEAR FOR COPD 11/20/2025 11/20/2024 HPV (Gardasil) Vaccine Aged Out No lo nger eligible based on patient's age to complete this topic Hepatitis B Vaccine Aged Out No longe r eligible based on patient's age to complete this topic MENINGOCOCCAL (MENACTRA/MENVEO) Aged Out No longer eligible based on patient's age to complete this topic documented as of this encounter Medical Devices Implanted Type Area Online Advertising Director Device Identifier Shelf Expiration Date Model / Serial / Lot Bard Powerport Single Mercedes Implanted:Qty: 1 on 07/24/2015 by Malina Moreno MD at OR [facility] Left: Chest CR BARD : ACCESS SYSTEMS 11/23/2016 [id number] / / [id number] documented as of this encounter Visit Diagnoses [...] both lower lobes due to infectious organism COPD exacerbation (HCC) Obstructive chronic bronchitis with exacerbation documented in this encounter Care Teams Apparel Designer Relationship Specialty Start Date End Date Corby Zuniga DO [address] [place] [address] [place] [address] PCP - General Family Medicine 11/02/24 documented as of this encounter
--- OUTSIDE RECORDS SUMMARY | 2024-12-05 02:59 | External Medical Summary ---
Author Name Unknown Address Unknown Organization K0G:[facility] [address] [place] [id number] Laboratory Report Ordering Provider Test Date Status [place] 11/20/2024 06:08:00 Final Observation Date Value Abnormality Reference (Units ) Status BUN 11/20/2024 06:08:00 23 Above high normal 6-20 (mg/dL) Final Creatinine 11/20/2024 06:08:00 0.9 0.6-1.2 (mg/dL) Final Glomerular filtration rate/1.73 sq M.predicted [Volume Rate/Area] in Serum, Plasma or Blood by Creatinine-based formula (CKD-EPI) 11/20/2024 06:08:00 84 >=60 (mL/min) Final eGFR is calculated based on the CKD-EPI 2020 equation. Sodium 11/20/2024 06:08:00 132 Below low normal 135 -146 (mmol/L) Final Potassium 11/20/2024 06:08:00 3.6 3.5-5.1 (m mol/L) Final Cl 11/20/2024 06:08:00 93 Below low normal 98- 107 (mmol/L) Final CO2 11/20/2024 06:08:00 30 22-32 (mmo l/L) Final Anion gap 11/20/2024 06:08:00 9 7-15 (mmol /L) Final Glucose 11/20/2024 06:08:00 112 70-120 (mg /dL) Final Calcium 11/20/2024 06:08:00 8.1 Below low normal 8.4 -10.2 (mg/dL) Final Performing Location [facility] [address] [place] [id number]
--- OUTSIDE RECORDS SUMMARY | 2024-12-05 02:59 | External Medical Summary | Summary of Care ---
Author Name Unknown Organization [facility] Address [address] [place] [address] Phone [phone] Care Team Providers Care Automobile Relocation Engineer Name Role Phone JilljaimejulesCorby ward Primary Care Provi gerda Encounter Details Date Type Department Care Team (Late st Contact Info) Description 11/20/2024 Orders Only Lab Mobile Phlebotomy [facility] [address] [place] [address] Genevieve Hobbs PA-C [address] [place] [address] Pneumonia*; Hyponatremia Allergies No known active allergiesdocumented as of [...] as of this encounter Plan of Treatment Scheduled Orders Name Type Priority Associated Diagnoses Orde r Schedule BASIC METABOLIC PANEL Lab Routine Pneumonia Hyponatremia Expected: 11/20/2024, Expires: 11/20/2025 CBC WITH WBC DIFFERENTIAL Lab Routine Pneumonia Hyponatremia Expected: 11/20/2024, Expires: 11/20/2025 Health Maintenance Due Date Last Done Comments Depression Screening 1950 Albumin/Creatinine Ratio 1956 Alpha-1 Antitrypsin 1956 CKD PHOS USE SMARTSET 55708 1956 DTap/Tdap Vaccines (1 - Tdap) 1957 Pneumococcal Vaccine: 50+ Years (1 of 2 - PCV) 1957 COVID-19 Vaccine (2 - Moderna risk series) 10/26/2023 09/28/2023 *COPD SEVERITY VERIFIED BY PFT 04/01/2024 Influenza Vaccine (FLU shot) (#1) 2024 CKD HGB USE SMARTSET 86804 11/06/202511/06, 11/06/2024, 06/04/2023, Additional history exists O2 [...] this encounter Medical Devices Implanted Type Area Asp Net C Developer Device Identifier Shelf Expiration Date Model / Serial / Lot Bard Powerport Single Mercedes Implanted:Qty: 1 on 07/24/2015 by Malina Moreno MD at OR [facility] Left: Chest CR BARD : ACCESS SYSTEMS 11/23/2016 [id number] / / [id number] documented as of this encounter Visit Diagnoses [...] Advanced care planning/counseling discussion Other specified counseling Pneumonia- Primary Pneumonia, organism unspecified Hyponatremia Hyposmolality and/or hyponatremia documented in this encounter Care Teams Automobile Relocation Engineer Relationship Specialty Start Date End Date Corby Zuniga DO [address] [place] [address] [place] [address] PCP - General Family Medicine 11/02/24 documented as of this encounter
--- OUTSIDE RECORDS SUMMARY | 2024-12-05 02:59 | External Medical Summary | Summary of Care ---
Author Name Unknown Organization [facility] Address [address] [place] [address] Phone [phone] Care Team Providers Care Setup Technician Name Role Phone DudleyjulesCorby ward Primary Care Provi gerda Reason for Visit * Reason Onset Date Comments Skilled Visit 11/20/2024 Encounter Details Date Type Department Care Team (Late st Contact Info) Description 11/20/2024 9:30 AM [facility] Visit [facility], [address] [place] [address] Genevieve Hobbs PA-C [address] [place] [address] [place] [address] Pneumonia of both lower lobes due to infectious organism*; Bilateral pleural effusion; Chronic diastolic congestive heart failure (HCC) Allergies [...] in the morning. with food.. 4 Active Cefpodoxime Proxetil 200 MG Oral Tablet Take 1 Tablet by mouth in the morning and 1 Tablet before bedtime. 4 11/20/20 24 Discontinu ed(End of Procedure) documented as of this encounter (statuses as [...] Sign Reading Time Taken Comments Blood Pressure 101/75 11/20/2024 4:19 PM EST Pulse 97 11/20/2024 4:19 PM EST Temperature 36.6 C (97.9 F) 11/20/2024 4:19 PM ES T Respiratory Rate 20 11/20/2024 4:19 PM EST Oxygen Saturation 95% 11/20/2024 4:19 PM EST on O2 Inhaled Oxygen Concentration - - Weight - - Height - - Body Mass Index - - documented in this encounter Plan of Treatment Health Maintenance Due Date Last Done Comments Depression Screening 1952 Albumin/Creatinine Ratio 1956 Alpha-1 Antitrypsin 1956 CKD PHOS USE SMARTSET 79890 1956 DTap/Tdap Vaccines (1 - Tdap) 1957 Pneumococcal Vaccine: 50+ Years (1 of 2 - PCV) 1957 COVID-19 Vaccine (2 - Moderna risk series) 10/26/2023 09/28/2023 *COPD SEVERITY VERIFIED BY PFT 04/01/2024 Influenza Vaccine (FLU shot) (#1) 2024 O2 ASSESSMENT COMPLETED IN PAST YEAR FOR COPD 11/17/2025 11/17/2024 CKD HGB USE SMARTSET 14484 11/20/202511/20, 11/20/2024, 11/06/2024, Additional history exists Zoster Vaccines Completed 02/26/2021, [...] this encounter Medical Devices Implanted Type Area It Integration Architect Device Identifier Shelf Expiration Date Model / Serial / Lot Bard Powerport Single Mercedes Implanted:Qty: 1 on 07/24/2015 by Malina Moreno MD at OR [facility] Left: Chest CR BARD : ACCESS SYSTEMS 11/23/2016 [id number] / / [id number] documented as of this encounter Visit Diagnoses [...] planning/counseling discussion Other specified counseling Pneumonia of both lower lobes due to infectious organism- Primary Bilateral pleural effusion Unspecified pleural effusion Chronic diastolic congestive heart failure (HCC) Chronic diastolic heart failure documented in this encounter Care Teams Setup Technician Relationship Specialty Start Date End Date Corby Zuniga DO [address] [place] [address] [place] [address] PCP - General Family Medicine 11/02/24 documented as of this encounter
--- OUTSIDE RECORDS SUMMARY | 2024-12-05 05:50 | External Medical Summary ---
Author Name Unknown Address Unknown Organization K01:[facility] - [address] [facility] [address] Laboratory Report Ordering Provider Test Date Status [place] 12/04/2024 13:09:28 Final Observation Date Value Abnormality Reference (Units ) Status Color of Urine by Auto 12/04/2024 13:09:28 Dark Yellow Colorless, Light Yellow, Yellow, Dark Yellow Final Clarity, Urine 12/04/2024 13:09:28 Clear Clear Final Glucose [Mass/volume] in Urine by Automated test strip 12/04/2024 13:09:28 Negative Negative (mg/dL) Final Bilirubin.total [Presence] in Urine by Automated test strip 12/04/2024 13:09:28 Small Abnormal Negative Final Ketones [Mass/volume] in Urine by Automated test strip 12/04/2024 13:09:28 Negative Negative (mg/dL) Final Specific gravity, Urine 12/04/2024 13:09:28 1.021 1.003-1.030 Final Hemoglobin [Presence] in Urine by Automated test strip 12/04/2024 13:09:28 Negative Negative Final pH, Urine 12/04/2024 13:09:28 7.0 5.0-7.5 (Units) Final Protein [Mass/volume] in Urine by Automated test strip 12/04/2024 13:09:28 Trace Abnormal Negative (mg/dL) Final Urobilinogen [Mass/volume] in Urine by Automated test strip 12/04/2024 13:09:28 >=8.0 Abnormal Normal (mg/dL) Final Nitrite [Presence] in Urine by Automated test strip 12/04/2024 13:09:28 Negative Negative Final Leukocyte esterase [Presence] in Urine by Automated test strip 12/04/2024 13:09:28 Negative Negative Final RBC, Urine 12/04/2024 13:09:28 0-2 0-2 (/HPF) Final WBC, Urine 12/04/2024 13:09:28 0-2 0-2 (/HPF) Final Bacteria [#/area] in Urine sediment by Microscopy high power field 12/04/2024 13:09:28 0-25 0-25 (/HPF) Final CULTURE, URINE - [facility] 12/04/2024 13:09:28 Final Culture not indicated by uri nalysis results\X09\ Performing Location LAB[facility]ORY [facility] - [facility] [address]. [facility] [address]
[2024-12-05] MEDS: metroNIDAZOLE 500 MG/100 ML BAG IV SCH (07:50)
[2024-12-05] MEDS: FLUTICASONE FUROATE 100MCG 14 PUFFS/INHALER INH SCH (07:50)
[2024-12-05] MEDS: TAMSULOSIN HCL 0.4 MG CAP PO SCH (07:51)
[2024-12-05] MEDS: METOPROLOL SUCC 25MG EXT REL TAB PO SCH ×2 (07:51→20:21)
[2024-12-05 07:52] LABS: Hematocrit (blood only) 31.5 % (42.0-52.0); Hemoglobin 10.5 g/dl (14.0-18.0); Mean Corpuscular Hemoglobin 27.9 pg (25.0-34.0); Mean Corpuscular Hgb Conc 33.3 g/dL (32.0-36.0); Mean Corpuscular Volume 83.6 fL (80.0-100.0); Mean Platelet Volume 9.9 fL (9.4-12.4); Platelet Count 234 K/uL (130-400); RDW Coefficient of Variation 15.6 % (11.5-14.5); RDW Standard Deviation 47.6 fL (36.4-46.3); Red Blood Count 3.77 M/uL (4.70-6.10); White Blood Count 7.84 K/ul (4.8-10.8)
[2024-12-05] MEDS: PANTOprazole 40 MG/10 ML SYR IV SCH (07:52)
[2024-12-05 08:16] LABS: Albumin Globulin Ratio 1.2 (0.9-2); Albumin Level 2.9 gm/dl (3.4-5.0); BUN Creatinine Ratio 24.5 (10-20); Bilirubin,Total 1.1 mg/dl (0.2-1.0); Calcium 8.4 mg/dl (8.6-10.3); Creatinine Clr Calc Pharmacy 52.7 ml/min; Globulin 2.5 gm/dl (2.5-4.0); Potassium 4.4 mmol/L (3.5-5.1); Total Protein 5.4 gm/dl (6.0-8.3)
--- NOTE | 2024-12-05 09:00 | Surgery Consultation ---
Date of Consultation December 05, 2024 Assessment & Plan (1) Acute cholecystitis: (2) Elevated LFTs: 84 yo male with history of COPD, adenocarcinoma of lung stage 3 (with no treatment), CKD, recent pneumonia, among other medical issues presented to ED from [facility] with elevated lfts, nausea, vomiting and abdominal pain. ER work- up showed elevated t. bili and lfts with gallbladder wall edema on ct scan concerning for acute cholecystitis with biliary obstruction. Repeat labs this am showed improvement and gallbladder ultrasound consistent with acute cholecystitis. Given patients multiple comorbidities and improvement in symptoms and labs, would recommend conservative approach with IV antibiotics and close monitoring. Would not recommend surgical intervention at this time as any surgical intervention could be with high risk. Continue medical management, repeat am labs, pain management as needed. Possible clear liquids tomorrow. Dr. Helton has seen and examined patient, see addendum for further recommendations/plan. History of Present Illness Reason for Consultation: Acute cholecystitis Attending Physician: Leonard Browne MD History of Present Illness 84 yo male with history of COPD, CHF, Graves disease, adenocarcinoma of lung stage 3, CKD stage 3, pulmonary hypertension, large b-cell lymphoma, HTN who p resented to emergency department from [facility] living with nausea, vomiting, and abdominal pain. Recently admitted her at [facility] for HCAP. He also had elevated LFTS at [facility] with t. bili of 4.5. CT scan of abdomen and pelvis showing edematous gallbladder new from prior . T. bili was 2.9, AST 280 , ALT 255, AND ALK PHOS OF 351. GI consulted for possible ERCP . Repeat labs this am showed improvement of t. bili and lfts. Ultrasound currently pending. HE states he currently is not having any abdominal pain and feeling much better. No further nausea or vomiting. No fevers or chills. Allergies Allergy/AdvReac Type Severity Reaction Status Date / Time No Known Allergies Allergy Verified 10/21/24 16:55 Home Medications Medication Instructions Recorded Confirmed Type cholecalciferol (vitamin D3) 25 2,000 units PO QAM 08/23/19 12/04/24 History mcg (1,000 unit) tablet Wheeled Walker #1 ea 07/01/23 10/21/24 Rx acetaminophen 500 mg tablet 500 mg PO Q6H PRN Pain 10/20/23 12/04/24 History (Tylenol Extra Strength) furosemide 20 mg tablet See Rx Instructions .Route .COMPLEX 04/12/24 12/04/24 History Portable Oxygen #1 ea 05/08/24 10/21/24 Rx aspirin 81 mg tablet,delayed 81 mg PO QAM #30 tabs 11/02/24 12/04/24 Rx release diclofenac sodium 1 % topical gel 2 g EXT BID PRN pain #100 grams 11/02/24 12/04/24 Rx (Voltaren Arthritis Pain) fluticasone furoate 100 1 inh inhalation DAILY #30 ea 11/02/24 12/04/24 Rx mcg/actuation blister powder for inhalation (Arnuity Ellipta) gabapentin 300 mg capsule 300 mg PO BID PRN pain #60 caps 11/02/24 12/04/24 Rx ipratropium 0.5 mg-albuterol 3 mg 3 ml NEB QID PRN Shortness Of 11/02/24 12/04/24 Rx (2.5 mg base)/3 mL nebulization Breath Or Wheezing #90 mL soln metoprolol succinate 25 mg 25 mg PO PM #30 tabs 11/02/24 12/04/24 Rx tablet,extended release 24 hr tamsulosin 0.4 mg capsule 0.4 mg PO QAM #90 caps 11/02/24 12/04/24 Rx Patient History Medical History Pleural effusion Acute kidney injury Acute hypoxemic respiratory failure Hypertension Sensorineural hearing loss (SNHL) of both ears Cor pulmonale Pulmonary hypertension Pulmonary nodule RLL Chronic kidney disease History of shingles takes gabapentin for pain Hyperthyroidism Emphysema/COPD Lymphoma (~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 Surgical History History of nasal surgery (~2014) due to CA Hx of esophagogastroduodenoscopy Hx of colonoscopy H/O varicose vein ligation Family History Father , Age 91 Renal failure Mother Breast cancer Denies family history of Ovarian cancer Prostate cancer Myocardial infarction Colorectal cancer Social History Smoking Status: Former smoker Tobacco Type: Cigarettes Age Started Using Tobacco: 18; Age Quit Using Tobacco: 61; Cigarettes Per Day: 1 PPD; Second Hand Exposure: No; Do You Dip or Chew Tobacco: No; Hx Alcohol Use: No Hx Substance Use: No Preferred Language: Malay Communication Ability: Effective Visual Impairment: No Limitations Hearing Ability: Hard of Hearing Alterations Workroom Clerk Required: No Beliefs That Will Affect Care: None marital status: Current Living Situation: [facility] current occupational status: retired How many Children do You have: 1 Feels Safe at Home: Yes Childhood Exposure to Second-Hand Smoke: No Diet: regular caffeine: Yes Dental Care, Regularly: No Physical Activity Frequency: Does not Exercise Seatbelt Use: always Sunscreen Use: No Do you think of yourself as: straight/heterosexual Gender Identity: Male Assistive Devices: Bedside Commode, Denture - Upper, Denture - Lower, Hospital Bed, Oxygen - at Night and Wheelchair Review of Systems Review of Systems: All systems reviewed & are unremarkable except as noted in HPI & below Physical Exam Constitutional: WD/WN, vitals as above + frail appearing, cooperative and comfortable; no acute distress Respiratory: normal respiratory effort; no respiratory distress and no labored breathing oxygen via nasal cannula Gastrointestinal (Abdomen): Inspection/Auscultation: abdomen normal to inspection; abdomen not distended Percussion/Palpation: + abdomen tender (RUQ) and abdomen soft; no guarding, abdomen not rigid and abdomen not firm Skin: no rashes, warm and dry Psychiatric: Orientation: alert and oriented x 3 Results & Data Vital Signs (Past 12 Hours) Vital Signs Temp Pulse Pulse Resp BP BP Pulse Ox 12/05/24 07:30 36.6 C 83 17 114/69 98 12/05/24 07:21 82 12/05/24 01:05 36.4 C L 92 H 22 127/71 94 12/05/24 01:05 12/05/24 01:00 12/05/24 00:58 110 H 12/05/24 00:40 87 17 110/74 12/05/24 00:00 81 18 105/69 96 12/04/24 22:00 85 16 128/75 94 12/04/24 21:12 90 Pulse Ox O2 Del Method O2 Del Method O2 Flow Rate O2 Flow Rate 12/05/24 07:30 Nasal Cannula 4 12/05/24 07:21 12/05/24 01:05 Nasal Cannula 4 12/05/24 01:05 94 Nasal Cannula 4 12/05/24 01:00 Nasal Cannula 4 12/05/24 00:58 12/05/24 00:40 Nasal Cannula 2 12/05/24 00:00 Nasal Cannula 2 12/04/24 22:00 Nasal Cannula 2 12/04/24 21:12 Laboratory Results 12/05/24 12/04/24 12/04/24 Range/Units 07:33 16:34 16:05 WBC 7.84 8.93 (4.8-10.8) K/ul RBC 3.77 L 4.01 L (4.70-6.10) M/uL Hgb 10.5 L 11.4 L (14.0-18.0) g/dl Hct 31.5 L 33.4 L (42.0-52.0) % MCV 83.6 83.3 (80.0-100.0) fL MCH 27.9 28.4 (25.0-34.0) pg MCHC 33.3 34.1 (32.0-36.0) g/dL RDW Std Deviation 47.6 H 46.1 (36.4-46.3) fL RDW Coeff of Chantal 15.6 H 15.2 H (11.5-14.5) % Plt Count 234 257 (130-400) K/uL MPV 9.9 10.4 (9.4-12.4) fL Immature Gran % (Auto) 0.4 % Neut % (Auto) 87.0 % Lymph % (Auto) 5.0 % [place] % (Auto) 7.2 % Eos % (Auto) 0.2 % Baso % (Auto) 0.2 % Neut # (Auto) 7.76 H (1.40-6.50) K/uL Lymph # (Auto) 0.45 L (1.20-3.40) K/uL [place] # (Auto) 0.64 H (0.11-0.59) K/uL Eos # (Auto) 0.02 (0.00-0.50) K/uL Baso # (Auto) 0.02 (0.00-0.20) K/uL Immature Gran # (Auto) 0.04 (0.01-0.20) K/uL Sodium 135 L 133 L (136-145) mmol/L Potassium 4.4 3.8 (3.5-5.1) mmol/L Chloride 99 96 L (98-107) mmol/L Carbon Dioxide 32 29 (21-32) mmol/L Anion Gap 4 8 (3-11) BUN 23 25 H (6-23) mg/dl Creatinine 0.94 1.09 (0.6-1.4) mg/dl Est Cr Clr Drug Dosing 52.7 45.5 ml/min eGFR 78.95 66.10 BUN/Creatinine Ratio 24.5 H 22.9 H (10-20) Glucose 77 171 H (70-99(Fasting)) mg/dl Calcium 8.4 L 8.2 L (8.6-10.3) mg/dl Total Bilirubin 1.1 H D 2.9 H (0.2-1.0) mg/dl AST 107 H 280 H (13-39) U/L ALT 176 H 255 H (7-52) U/L Alkaline Phosphatase 268 H 351 H (34-104) U/L Total Protein 5.4 L 5.7 L (6.0-8.3) gm/dl Albumin 2.9 L 3.1 L (3.4-5.0) gm/dl Globulin 2.5 2.6 (2.5-4.0) gm/dl Albumin/Globulin Ratio 1.2 1.2 (0.9-2) Lipase 9 L 17 (11-82) U/L Urine Color Dark Yellow Urine Appearance Clear (Clear) Urine pH 6.5 (4.5-7.5) Ur Specific [place] 1.015 (1.000-1.030) Urine Protein Trace H (Negative) Urine Glucose (UA) Negative (Negative) Urine Ketones Negative (Negative) Urine Blood Negative (Negative) Urine Nitrite Negative (Negative) Urine Bilirubin 1+ H (Negative) Urine Urobilinogen Negative (Negative) Ur Leukocyte Esterase 2+ H (Negative) Urine WBC (Auto) 21-50 H (0-5) /hpf Urine RBC (Auto) 0-2 (0-2) /hpf U Hyaline Cast (Auto) 0-2 (0-2) /lpf U Epithel Cells (Auto) 3-5 H (0-2) /hpf Urine Bacteria (Auto) None Seen (None Seen) Diagnostic Findings Exam(s): CT ABDOMEN + PELVIS With Contrast IV Amt: 90 ml optiray 320 EXAM: CT Abdomen and Pelvis With Intravenous Contrast CLINICAL HISTORY: Reason for exam: elevated liver enzymes abd pain. TECHNIQUE: Axial computed tomography images of the abdomen and pelvis with intravenous contrast. CTDI is 20 mGy and DLP is 934 mGy-cm. Automated exposure control was utilized for the study. A dose lowering technique was utilized adhering to the principles of ALARA. CONTRAST: Patient received 90 ml optiray 320 of IV contrast COMPARISON: 10/21/24 FINDINGS: Lung bases: Bibasilar airspace opacities suggesting combined atelectatic and fibrotic changes with regions of round atelectasis suggested in both lower lobes. Pleural space: Small bilateral pleural effusions which are partially loculated and probably chronic. Calcified pleural plaque left lung base. Heart: Small pericardial effusion. ABDOMEN: Liver: Unremarkable. No mass. Gallbladder and bile ducts: Gallbladder wall edema, new from prior, associated with mild wall thickening. Some layering gallbladder sludge. No biliary dilatation. No calcified stones. Pancreas: Unremarkable. No mass. No ductal dilation. Spleen: Unremarkable. No splenomegaly. Adrenals: Unremarkable. No mass. Kidneys and ureters: No hydronephrosis. Symmetric renal enhancement. Simple bilateral renal cysts; no follow-up indicated. Nonobstructing left kidney stone. Stomach and bowel: Right inguinal hernia containing visceral fat and cecal base/ileocecal junction. Compared to prior, there is increased distention of the herniated cecum with stool. Early incarceration cannot be excluded. There is no upstream bowel obstruction. Diverticulosis without diverticulitis. No mucosal thickening. PELVIS: Appendix: Appendix is normal. Bladder: Unremarkable. No mass. Reproductive: Prostatomegaly. ABDOMEN and PELVIS: Intraperitoneal space: Unremarkable. No free air, significant free fluid, or fluid collection. Bones/joints: Degenerative change in the lumbar spine. No acute fracture. No dislocation. Soft tissues: Right inguinal hernia containing bowel. Intramuscular lipoma right psoas muscle measuring 2.8 x 3.5 x 6.2 cm. Vasculature: Atherosclerosis. No abdominal aortic aneurysm. Lymph nodes: Unremarkable. No enlarged lymph nodes. Tubes, lines and devices: Mild urinary bladder wall trabeculation consistent with chronic lateral lead obstruction. Also noted is a small left-sided bladder diverticulum. IMPRESSION: 1. 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 Correlate for underlying coagulopathy. 2. Gallbladder wall edema, new from prior, associated with mild wall thickening. Some layering gallbladder sludge. Appearance raises the possibility of acute cholecystitis. Clinical/sonographic correlation recommended. 3. Right inguinal hernia containing visceral fat and cecal base/ileocecal junction. Compared to prior, there is increased distention of the herniated cecum with stool. Early incarceration cannot be excluded. There is no upstream bowel obstruction. US liver CLINICAL HISTORY: Abnormal CT, elevated Liver Enzymes TECHNIQUE: Multiple real-time sonographic images of the right upper quadrant were obtained. Comparison: Comparison is made to CT abdomen pelvis 12/04/2024 FINDINGS: The liver is diffusely echogenic in appearance with poor ultrasound penetration, with normal contour, which is consistent with fatty infiltration. No focal mass lesions are seen. No intrahepatic ductal dilatation is seen. Gallstones and sludge are seen with hyperemic wall measuring 4 mm pericholecystic fluid. A sonographic Gillette's sign was elicited by the client services associate. The common duct measures 0.7 cm in diameter at the level of the hepatic artery. The visualized portions of the pancreas appear normal. The right kidney shows normal echogenicity, cortical thickness and renal contour. The right kidney shows no evidence of hydronephrosis. Cysts are seen in the lower pole measuring 5.6 x 3.6 x 1.5 cm, either 2 separate cysts or a single septated cyst. Partial visualization of a hypoechoic mass adjacent to the kidney corresponding to an intrarenal lipoma. No ascites or free fluid is seen in Morley's pouch. IMPRESSION: Gallstones, wall thickening, and pericholecystic edema with positive Gillette's sign suggestive of acute cholecystitis.
[2024-12-05] MEDS: cefTRIAXone SODIUM 2,000 MG/50 ML BAG IV SCH (09:08)
[2024-12-05] MEDS: DICLOFENAC SOD 1% GEL 100 GM TUBE EXT SCH (11:18)
[2024-12-05] MEDS: ASPIRIN 81 MG ECTAB PO SCH (11:19)
--- NOTE | 2024-12-05 11:28 | Gastrointestinal Consultation ---
Date of Consultation December 05, 2024 Assessment & Plan (1) Acute cholecystitis: - continue to follow LFTs. currently they are trending downward. - await results of US. - surgery also following. - further recommendations to follow. see MD lerma. Supervising Physician Co-Signing Physician Notes Of note by JOSE reviewed. Discussed in person. Patient also examined at the bedside. He was sleeping to arouse to voice little bit irritable. He does point to the right upper quadrant as a source of his discomfort and he has a positive Gillette sign. Bowel sounds are present his liver enzymes were elevated though are trending down. CT suggested that his bile duct was not dilated. The bile duct though is at the upper range of normal 6 to 7 mm on ultrasound his liver tests again are trending down. He is prepared to undergo an MRCP. I think going ahead with the MRCP if his ducts are normal proceeding with a laparoscopic cholecystectomy is recommended. If there is clear common duct stone then an ERCP could be undertaken. Awaiting results of MRCP. History of Present Illness Reason for Consultation: acute cholecystitis Requesting Physician: Alondra Ho MD Attending Physician: Leonard Browne MD History of Present Illness Patient is an 84 year old male patient with PMHx of COPD, Graves' disease, Lung adenocarcinoma, CKD-3, and recent admission for management of PNA who presented to the ed via EMS due to RUQ pain with associated nausea, vomiting, and poor PO intake. Upon evaluation he had been found to have elevated LFTs and CT concerning for possible cholecystitis. he tells me that since he has been here the pain and nausea/vomiting has subsided. He had an US done this morning but results are pending. LFTs are trending downward. rest of GI ros are unremarkable. 12/05 t bili 1.1, ast 107, alt 176, alk phos 268 12/04 CT Intramuscular lipoma right psoas muscle measuring 2.8 x 3.5 x 6.2 cm, new from prior. Correlate for underlying coagulopathy. 2. Gallbladder wall edema, new from prior, associated with mild wall thickening. Some layering gallbladder sludge. Appearance raises the possibility of acute cholecystitis. Clinical/sonographic correlation recommended. 3. Right inguinal hernia containing visceral fat and cecal base/ileocecal junction. Compared to prior, there is increased distention of the herniated cecum with stool. Early incarceration cannot be excluded. There is no upstream bowel obstruction. Allergies Allergy/AdvReac Type Severity Reaction Status Date / Time No Known Allergies Allergy Verified 10/21/24 16:55 Home Medications Medication Instructions Recorded Confirmed Type cholecalciferol (vitamin D3) 25 2,000 units PO QAM 08/23/19 12/04/24 History mcg (1,000 unit) tablet Wheeled Walker #1 ea 07/01/23 10/21/24 Rx acetaminophen 500 mg tablet 500 mg PO Q6H PRN Pain 10/20/23 12/04/24 History (Tylenol Extra Strength) furosemide 20 mg tablet See Rx Instructions .Route .COMPLEX 04/12/24 12/04/24 History Portable Oxygen #1 ea 05/08/24 10/21/24 Rx aspirin 81 mg tablet,delayed 81 mg PO QAM #30 tabs 11/02/24 12/04/24 Rx release diclofenac sodium 1 % topical gel 2 g EXT BID PRN pain #100 grams 11/02/24 12/04/24 Rx (Voltaren Arthritis Pain) fluticasone furoate 100 1 inh inhalation DAILY #30 ea 11/02/24 12/04/24 Rx mcg/actuation blister powder for inhalation (Arnuity Ellipta) gabapentin 300 mg capsule 300 mg PO BID PRN pain #60 caps 11/02/24 12/04/24 Rx ipratropium 0.5 mg-albuterol 3 mg 3 ml NEB QID PRN Shortness Of 11/02/24 12/04/24 Rx (2.5 mg base)/3 mL nebulization Breath Or Wheezing #90 mL soln metoprolol succinate 25 mg 25 mg PO PM #30 tabs 11/02/24 12/04/24 Rx tablet,extended release 24 hr tamsulosin 0.4 mg capsule 0.4 mg PO QAM #90 caps 11/02/24 12/04/24 Rx Patient History Medical History Pleural effusion Acute kidney injury Acute hypoxemic respiratory failure Hypertension Sensorineural hearing loss (SNHL) of both ears Cor pulmonale Pulmonary hypertension Pulmonary nodule RLL Chronic kidney disease History of shingles takes gabapentin for pain Hyperthyroidism Emphysema/COPD Lymphoma (~2014) 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 Surgical History History of nasal surgery (~2014) due to CA Hx of esophagogastroduodenoscopy Hx of colonoscopy H/O varicose vein ligation Family History Father , Age 91 Renal failure Mother Breast cancer Denies family history of Ovarian cancer Prostate cancer Myocardial infarction Colorectal cancer Social History Smoking Status: Former smoker Tobacco Type: Cigarettes Age Started Using Tobacco: 18; Age Quit Using Tobacco: 61; Cigarettes Per Day: 1 PPD; Second Hand Exposure: No; Do You Dip or Chew Tobacco: No; Hx Alcohol Use: No Hx Substance Use: No Preferred Language: Salvadorean Communication Ability: Effective Visual Impairment: No Limitations Hearing Ability: Hard of Hearing Fire Prevention Specialist Required: No Beliefs That Will Affect Care: None marital status: Current 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 How many Children do You have: 1 Feels Safe at Home: Yes Childhood Exposure to Second-Hand Smoke: No Diet: regular caffeine: Yes Dental Care, Regularly: No Physical Activity Frequency: Does not Exercise Seatbelt Use: always Sunscreen Use: No Do you think of yourself as: straight/heterosexual Gender Identity: Male Assistive Devices: Bedside Commode, Denture - Upper, Denture - Lower, Hospital Bed, Oxygen - at Night and Wheelchair Review of Systems Review of Systems: All systems reviewed & are unremarkable except as noted in HPI & below Physical Exam Constitutional: WD/WN, vitals as above Respiratory: normal respiratory effort, lungs clear to auscultation Cardiovascular: Rate/Rhythm: regular rate and regular rhythm Gastrointestinal (Abdomen): RUQ and LUQ tenderness, no guarding, soft, normal bowel sounds. Psychiatric: Orientation: alert and oriented x 3 Affect: euthymic affect Results & Data Vital Signs (Past 12 Hours) Vital Signs Temp Pulse Pulse Resp BP BP BP 12/05/24 11:24 97.7 F 91 H 20 109/63 12/05/24 09:15 12/05/24 07:30 97.9 F 83 17 114/69 12/05/24 07:21 82 12/05/24 01:05 97.5 F L 92 H 22 127/71 12/05/24 01:05 12/05/24 01:00 12/05/24 00:58 110 H 12/05/24 00:40 87 17 110/74 12/05/24 00:00 81 18 105/69 Pulse Ox Pulse Ox O2 Del Method O2 Del Method O2 Flow Rate O2 Flow Rate 12/05/24 11:24 92 Nasal Cannula 4 12/05/24 09:15 Nasal Cannula 4 12/05/24 07:30 98 Nasal Cannula 4 12/05/24 07:21 12/05/24 01:05 94 Nasal Cannula 4 12/05/24 01:05 94 Nasal Cannula 4 12/05/24 01:00 Nasal Cannula 4 12/05/24 00:58 12/05/24 00:40 Nasal Cannula 2 12/05/24 00:00 96 Nasal Cannula 2 Coding Level of Care Code 96437 INT INP/OBS CARE 2/55MIN Diagnoses Acute cholecystitis K81.0
--- NOTE | 2024-12-05 12:01 | Hospitalist Progress Note ---
Date of Service December 05, 2024 Assessment & Plan (1) COPD (chronic obstructive pulmonary disease): (2) Adenocarcinoma of lung, stage 3: (3) Chronic kidney disease: (4) Hyponatremia: (5) Large B-cell lymphoma: (6) Acute cholecystitis: (7) Hernia: Plan This is a 84 y/o female patient with PMHx of COPD, Graves' disease, Lung adenocarcinoma, CKD-3, and recent admission for management of PNA who was admitted for management of RUQ pain found to be related to acute cholecystitis. Acute cholecystitis - Patient with imaging, labs, and presentation consistent with acute cholecystitis - GI and gen surgery consulted, await recs -Liver US, ordered, result pending -There could have been an associated gall stone, which likely passed, given improving liver enzymes - continue empiric antibiotics Inguinal hernia with possible incarcerated viscus as seen on Ct Surgery on consult COPD - Continue home inhalers CKD - Cr was 0.89 in recent admission; today Cr 1.09 - Will order fluids as mentioned above - Monitor am labs BPH - Continue home flomax HFpEF - Continue ASA, Lasix, and Metoprolol Dispo: PCU/Tele Fluids: NSS @ 125 ml/hr x1 Diet: Pain Control: Tylenol VTE ppx: SCD Code Status: Conditional code: patient would like chest compressions and defibrillation if necessary as well as all other ACLS interventions, but is NOT interested in invasive airway interventions such as intibation or mechanical ventilation. Admission and Anticipated Discharge Date Admission Date: December 04, 2024 Subjective patient seen and examined, still some pain on RUUQ Review of Systems Review of Systems: All systems reviewed are negative, apart from the ones contained in the history. Physical Exam Physical Exam: The patient is awake, alert and oriented 3, well developed and well nourished, normocephalic and atraumatic, lying in bed and in no acute distress. HEENT--PERRL, EOMI, mucous membranes and oropharynx mildly dry Neck--supple. No JVD. No bruits. Thyroid normal, trachea midline, no adenopathy. Heart--normal S1 and S2. No murmurs, rubs or gallops. Lungs--clear bilaterally, no respiratory distress, no accessory muscle use. Abdomen--normal bowel sounds and soft. Extremities--no cyanosis or clubbing. No edema. Dermatologic--normal skin turgor, normal color, no abnormal lymph nodes, no rash. Neurologic--cranial nerves II through XII grossly intact. Rheumatologic--normal range of motion. Psychiatric--normal affect. Results & Data Results & Data Vital Signs (Past 12 Hours) Vital Signs Temp Pulse Pulse Resp BP BP BP 12/05/24 11:24 97.7 F 91 H 20 109/63 12/05/24 09:15 12/05/24 07:30 97.9 F 83 17 114/69 12/05/24 07:21 82 12/05/24 01:05 97.5 F L 92 H 22 127/71 12/05/24 01:05 12/05/24 01:00 12/05/24 00:58 110 H 12/05/24 00:40 87 17 110/74 12/05/24 00:00 81 18 105/69 Pulse Ox Pulse Ox O2 Del Method O2 Del Method O2 Flow Rate O2 Flow Rate 12/05/24 11:24 92 Nasal Cannula 4 12/05/24 09:15 Nasal Cannula 4 12/05/24 07:30 98 Nasal Cannula 4 12/05/24 07:21 12/05/24 01:05 94 Nasal Cannula 4 12/05/24 01:05 94 Nasal Cannula 4 12/05/24 01:00 Nasal Cannula 4 12/05/24 00:58 12/05/24 00:40 Nasal Cannula 2 12/05/24 00:00 96 Nasal Cannula 2 PG Care Time/CCT Total # of Minutes Spent Total Time Spent with Patient: Total time spent is greater than 50% in coordination of care (as documented) at patient's floor/unit and/or counseling patient: Coding Level of Care Code 24220 SUB INP/OBS CARE 2/35MIN Diagnoses COPD (chronic obstructive pulmonary disease) J44.9 COPD type: unspecified COPD Adenocarcinoma of lung, stage 3 C34.90 Chronic kidney disease N18.9 Hyponatremia E87.1 Large B-cell lymphoma C85.10 Acute cholecystitis K81.0 Hernia K46.9 Time Spent (min) 35 (1) COPD (chronic obstructive pulmonary disease) COPD type: unspecified COPD Qualified Code(s): J44.9 - Chronic obstructive pulmonary disease, unspecified
--- NOTE | 2024-12-05 12:52 | Ultrasound Report ---
US liver CLINICAL HISTORY: Abnormal CT, elevated Liver Enzymes TECHNIQUE: Multiple real-time sonographic images of the right upper quadrant were obtained. Comparison: Comparison is made to CT abdomen pelvis 12/04/2024 FINDINGS: The liver is diffusely echogenic in appearance with poor ultrasound penetration, with normal contour, which is consistent with fatty infiltration. No focal mass lesions are seen. No intrahepatic duct al dilatation is seen. Gallstones and sludge are seen with hyperemic wall measuring 4 mm pericholecy stic fluid. A sonographic Gillette's sign was elicited by the membership counselor. The common duct measures 0 .7 cm in diameter at the level of the hepatic artery. The visualized portions of the pancreas appear normal. The right kidney shows normal echogenicity, cortical thickness and renal contour. The right kidney sh ows no evidence of hydronephrosis. Cysts are seen in the lower pole measuring 5.6 x 3.6 x 1.5 cm, eit her 2 separate cysts or a single septated cyst. Partial visualization of a hypoechoic mass adjacent t o the kidney corresponding to an intrarenal lipoma. No ascites or free fluid is seen in Morley's pouch. IMPRESSION: Gallstones, wall thickening, and pericholecystic edema with positive Gillette's sign suggestive of acut e cholecystitis. ACT 112: Negative or not required by law. Electronically signed by: Asher Davidson M.D. 12/05/2024 12:50 PM
[2024-12-05] MEDS: ACETAMINOPHEN 325 MG TAB PO PRN (18:15)
--- NOTE | 2024-12-05 21:05 | Magnetic Resonance Report ---
EXAM: MR MRCP CLINICAL HISTORY: states he has a gallstone that needs to be removed, had RUQ abdominal pain, acute cholecystitis on ultrasound, PT uncooperative, unable to hold breath, TECHNIQUE: Different pulse sequences were performed in different planes for the abdomen without contrast for the abdomen and biliary system. 3D reconstruction and MIP were performed on a workstation. Images were sent through PACs for diagnostic interpretation. COMPARISON: None. FINDINGS: An average size of the liver, showing regular contour. It shows homogenous parenchymal signals with no definite parenchymal focal lesions. Normal segmental branches of the biliary segments. The right anterior duct and right posterior duct form the right hepatic duct. The left lobe ducts form the left hepatic duct. The right and left hepatic ducts form the common hepatic duct. The cystic duct joins the distal CBD. No dilatation of the intra or extrahepatic biliary radicles. An average calibre of the common bile duct (CBD). The gallbladder is distended with a thickened edematous wall measuring 4.8 mm. Associated pericholecystic collection. Intraluminal multiple calcified gallstones ranging around 14 mm in diameter. Findings are consistent with acute calcular cholecystitis. Normal size and signal intensity of the spleen. The pancreas shows normal dimensions with no focal lesions with intact pancreatic outlines. Preserved kianna-pancreatic fascial planes. Normal size, shape and parenchymal signal intensity of both kidneys. No backpressure changes or renal stones were detected. Both kidneys show multiple variable-sized parenchymal cysts, ranging around 3.5 cm in diameter. Normal size and outlines of the supra-renal glands with no detectable hyperplasia or masses. Minimal ascites. No para-aortic lymphadenopathies. Aortoiliac atherosclerotic changes with an ectatic course of the abdominal aorta. Minimal right pleural effusion is seen. Altered signals of the iliopsoas and iliacus muscles, most appreciated on the right side with restricted diffusion. Polymyositis vs. polymyogenic strain are suggested. Further workup is recommended. IMPRESSION: 1. Findings consistent with acute calcular cholecystitis. 2. Minimal ascites. 3. Bilateral renal cysts. 4. Aortoiliac atherosclerotic changes with an ectatic course of the abdominal aorta. 5. Altered signals of the iliopsoas and iliacus muscles, most appreciated on the right side with restricted diffusion. Polymyositis vs. polymyogenic strain are suggested. Abscess formation not ruled out. Further workup is recommended. 6. Minimal right pleural effusion Electronically signed by Yara Gallego 12-05-2024 9:05 PM
[2024-12-06 06:45] LABS: Hemoglobin 10.2 g/dl (14.0-18.0); Mean Corpuscular Hemoglobin 28.2 pg (25.0-34.0); Mean Corpuscular Hgb Conc 32.9 g/dL (32.0-36.0); Mean Corpuscular Volume 85.6 fL (80.0-100.0); Platelet Count 255 K/uL (130-400); RDW Coefficient of Variation 15.5 % (11.5-14.5); RDW Standard Deviation 48.7 fL (36.4-46.3); Red Blood Count 3.62 M/uL (4.70-6.10); White Blood Count 6.41 K/ul (4.8-10.8)
[2024-12-06 07:45] LABS: Albumin Globulin Ratio 1.2 (0.9-2); Albumin Level 2.9 gm/dl (3.4-5.0); Bilirubin,Total 0.8 mg/dl (0.2-1.0); Calcium 8.5 mg/dl (8.6-10.3); Creatinine Clr Calc Pharmacy 49.6 ml/min; Globulin 2.5 gm/dl (2.5-4.0); Total Protein 5.4 gm/dl (6.0-8.3)
[2024-12-06] MEDS: DEXTROSE 50% 50 ML SYRINGE IV STA (07:55)
[2024-12-06] MEDS: DEXTROSE 50% 50 ML SYRINGE IV ONE (07:55)
--- NOTE | 2024-12-06 09:26 | Surgery Progress Note ---
Date of Service December 06, 2024 Assessment & Plan (1) Acute cholecystitis: (2) Elevated LFTs: Plan: 84 yo male with history of COPD, adenocarcinoma of lung stage 3 (with no treatment), CKD, recent pneumonia, among other medical issues presented to ED from [facility] with elevated lfts, nausea, vomiting and abdominal pain. ER work- up showed elevated t. bili and lfts with gallbladder wall edema on ct scan concerning for acute cholecystitis with biliary obstruction. Repeat labs this am showed improvement (likely passed gallstone without persistent biliary obstruction) and gallbladder ultrasound and MRCP consistent with acute cholecystitis with no biliary obstruction. 12/06/2024 avss no leukocytosis t. bili normalized, LFTS continue to improve lipase wnl Given patients multiple comorbidities and improvement in symptoms and labs, would recommend conservative approach with IV antibiotics and close monitoring. Would not recommend surgical intervention at this time as any surgical intervention would likely be with high risk. Continue medical management, repeat am labs, pain management as needed. clear liquids this morning, advance to low fat diet as tolerated Discussed with Dr. Helton who agrees with above. Admission and Anticipated Discharge Date Admission Date: December 04, 2024 Subjective feeling great hungry, wants food no nausea or vomiting no chest pain or shortness of breath no fevers, chills, sweats Physical Exam Constitutional: + ill appearing, + frail appearing, coop erative and comfortable; no acute distress Respiratory: normal respiratory effort; no respiratory distress and no labored breathing oxygen via nasal cannula Gastrointestinal (Abdomen): Inspection/Auscultation: abdomen normal to inspect ion; abdomen not distended Percussion/Palpation: + abdomen tender (RUQ on deep palpation) and abdomen soft; no guarding, abdomen not rigid and abdomen not firm Skin: no rashes, warm and dry Psychiatric: Orientation: alert and oriented x 3 Results & Data Vital Signs (Past 12 Hours) Vital Signs Temp Pulse Pulse Resp BP Pulse Ox O2 Del Method 12/06/24 07:47 36.7 C 79 16 112/62 99 Nasal Cannula 12/06/24 07:34 82 12/06/24 03:10 36.8 C 88 18 114/71 98 Nasal Cannula 12/05/24 23:23 36.8 C 81 21 108/66 99 Nasal Cannula 12/05/24 21:50 73 O2 Flow Rate 01/15/25 07:47 4 12/06/24 07:34 12/06/24 03:10 4 12/05/24 23:23 4 12/05/24 21:50 Laboratory Results 12/06/24 12/06/24 Range/Units 08:21 05:39 WBC 6.41 (4.8-10.8) K/ul RBC 3.62 L (4.70-6.10) M/uL Hgb 10.2 L (14.0-18.0) g/dl Hct 31.0 L (42.0-52.0) % MCV 85.6 (80.0-100.0) fL MCH 28.2 (25.0-34.0) pg MCHC 32.9 (32.0-36.0) g/dL RDW Std Deviation 48.7 H (36.4-46.3) fL RDW Coeff of Chantal 15.5 H (11.5-14.5) % Plt Count 255 (130-400) K/uL MPV 10.0 (9.4-12.4) fL Sodium 137 (136-145) mmol/L Potassium 4.0 (3.5-5.1) mmol/L Chloride 101 (98-107) mmol/L Carbon Dioxide 26 (21-32) mmol/L Anion Gap 10 (3-11) BUN 35 H (6-23) mg/dl Creatinine 1.00 (0.6-1.4) mg/dl Est Cr Clr Drug Dosing 49.6 ml/min eGFR 73.30 BUN/Creatinine Ratio 35.0 H (10-20) Glucose 43 L* (70-99(Fasting)) mg/dl POC Glucose 100 H (70-99) mg/dl Calcium 8.5 L (8.6-10.3) mg/dl Total Bilirubin 0.8 (0.2-1.0) mg/dl AST 46 H (13-39) U/L ALT 116 H (7-52) U/L Alkaline Phosphatase 221 H (34-104) U/L Total Protein 5.4 L (6.0-8.3) gm/dl Albumin 2.9 L (3.4-5.0) gm/dl Globulin 2.5 (2.5-4.0) gm/dl Albumin/Globulin Ratio 1.2 (0.9-2) Lipase 10 L (11-82) U/L Diagnostic Findings MR MRCP CLINICAL HISTORY: states he has a gallstone that needs to be removed, had RUQ abdominal pain, acute cholecystitis on ultrasound, PT uncooperative, unable to hold breath, TECHNIQUE: Different pulse sequences were performed in different planes for the abdomen without contrast for the abdomen and biliary system. 3D reconstruction and MIP were performed on a workstation. Images were sent through PACs for diagnostic interpretation. COMPARISON: None. FINDINGS: An average size of the liver, showing regular contour. It shows homogenous parenchymal signals with no definite parenchymal focal lesions. Normal segmental branches of the biliary segments. The right anterior duct and right posterior duct form the right hepatic duct. The left lobe ducts form the left hepatic duct. The right and left hepatic ducts form the common hepatic duct. The cystic duct joins the distal CBD. No dilatation of the intra or extrahepatic biliary radicles. An average calibre of the common bile duct (CBD). The gallbladder is distended with a thickened edematous wall measuring 4.8 mm. Associated pericholecystic collection. Intraluminal multiple calcified gallstones ranging around 14 mm in diameter. Findings are consistent with acute calcular cholecystitis. Normal size and signal intensity of the spleen. The pancreas shows normal dimensions with no focal lesions with intact pancreatic outlines. Preserved kianna-pancreatic fascial planes. Normal size, shape and parenchymal signal intensity of both kidneys. No backpressure changes or renal stones were detected. Both kidneys show multiple variable-sized parenchymal cysts, ranging around 3.5 cm in diameter. Normal size and outlines of the supra-renal glands with no detectable hyperplasia or masses. Minimal ascites. No para-aortic lymphadenopathies. Aortoiliac atherosclerotic changes with an ectatic course of the abdominal aorta. Minimal right pleural effusion is seen. Altered signals of the iliopsoas and iliacus muscles, most appreciated on the right side with restricted diffusion. Polymyositis vs. polymyogenic strain are suggested. Further workup is recommended. IMPRESSION: 1. Findings consistent with acute calcular cholecystitis. 2. Minimal ascites. 3. Bilateral renal cysts. 4. Aortoiliac atherosclerotic changes with an ectatic course of the abdominal aorta. 5. Altered signals of the iliopsoas and iliacus muscles, most appreciated on the right side with restricted diffusion. Polymyositis vs. polymyogenic strain are suggested. Abscess formation not ruled out. Further workup is recommended. 6. Minimal right pleural effusion
--- NOTE | 2024-12-06 10:08 | Gastroenterology Progress Note ---
Date of Service December 06, 2024 Assessment & Plan (1) Elevated LFTs: (2) Acute cholecystitis: Plan LFTs trending down and no choledocholithiasis noted on MRCP. He still has RUQ pain. - surgery following. - no indication for ERCP at this time. Admission and Anticipated Discharge Date Admission Date: December 04, 2024 Supervising Physician Co-Signing Physician Notes Patient more short of breath. On nasal prong oxygen. No common duct stones. Liver enzymes trending down. Bili now normal. Patient continues to have significant right upper quadrant pain positive Gillette sign. Stand that patient does not currently be considered for cholecystectomy. Hospice care has been entertained. No indication for ERCP. GI will sign off reconsult as needed Subjective patient having some abdominal pain still. RUQ in nature. no nausea, vomiting. MRCP consistent with acute cholecystitis with no biliary obstruction. LFTs trending downward. Review of Systems Review of Systems: All systems reviewed & are unremarkable except as noted in HPI & below Physical Exam Constitutional: WD/WN, vitals as above Respiratory: normal respiratory effort, lungs clear to auscultation Cardiovascular: Rate/Rhythm: regular rate and regular rhythm Gastrointestinal (Abdomen): RUQ tenderness to palpation, no guarding, soft, normal bowel sounds Psychiatric: Orientation: alert and oriented x 3 Results & Data Results & Data Vital Signs (Past 12 Hours) Vital Signs Temp Pulse Pulse Resp BP Pulse Ox O2 Del Method 12/06/24 09:28 Nasal Cannula 12/06/24 07:47 98.1 F 79 16 112/62 99 Nasal Cannula 12/06/24 07:34 82 12/06/24 03:10 98.2 F 88 18 114/71 98 Nasal Cannula 12/05/24 23:23 98.2 F 81 21 108/66 99 Nasal Cannula O2 Flow Rate 12/06/24 09:28 3 12/06/24 07:47 4 12/06/24 07:34 12/06/24 03:10 4 12/05/24 23:23 4 Coding Level of Care Code 35740 SUB INP/OBS CARE 12/16MIN Diagnoses Elevated LFTs R79.89 Acute cholecystitis K81.0
--- NOTE | 2024-12-06 11:44 | Hospitalist Progress Note ---
Date of Service December 06, 2024 Assessment & Plan (1) COPD (chronic obstructive pulmonary disease): (2) Adenocarcinoma of lung, stage 3: (3) Chronic kidney disease: (4) Hyponatremia: (5) Large B-cell lymphoma: (6) Acute cholecystitis: (7) Hernia: Plan This is a 84 y/o female patient with PMHx of COPD, Graves' disease, Lung adenocarcinoma, CKD-3, and recent admission for management of PNA who was admitted for management of RUQ pain found to be related to acute cholecystitis. Acute cholecystitis - Patient with imaging, labs, and presentation consistent with acute cholecystitis --There could have been an associated gall stone, which likely passed, given improving liver enzymes - GI and gen surgery consulted, await recs -Liver US shows gallstones, MRCP suggests acute calculus cholecystitis -However, patient is reluctant to have surgery and surgery says he is a high risk, given numerous co morbidities -Will continue conservative management - continue empiric antibiotics Inguinal hernia with possible incarcerated viscus as seen on Ct Surgery on consult COPD - Continue home inhalers CKD - Cr was 0.89 in recent admission; today Cr 1.09 - Will order fluids as mentioned above - Monitor am labs BPH - Continue home flomax HFpEF - Continue ASA, Lasix, and Metoprolol Dispo: PCU/Tele Fluids: NSS @ 125 ml/hr x1 Diet: Pain Control: Tylenol VTE ppx: SCD Code Status: Conditional code: patient would like chest compressions and defibrillation if necessary as well as all other ACLS interventions, but is NOT interested in invasive airway interventions such as intibation or mechanical ventilation. Plan is for home with hospice tomorrow Admission and Anticipated Discharge Date Admission Date: December 04, 2024 Subjective patient seen and examined, refusing surgery Review of Systems Review of Systems: All systems reviewed are negative, apart from the ones contained in the history. Physical Exam Physical Exam: The patient is awake, alert and oriented 3, well developed and well nourished, normocephalic and atraumatic, lying in bed and in no acute distress. HEENT--PERRL, EOMI, mucous membranes and oropharynx mildly dry Neck--supple. No JVD. No bruits. Thyroid normal, trachea midline, no adenopathy. Heart--normal S1 and S2. No murmurs, rubs or gallops. Lungs--clear bilaterally, no respiratory distress, no accessory muscle use. Abdomen--normal bowel sounds and soft. Extremities--no cyanosis or clubbing. No edema. Dermatologic--normal skin turgor, normal color, no abnormal lymph nodes, no rash. Neurologic--cranial nerves II through XII grossly intact. Rheumatologic--normal range of motion. Psychiatric--normal affect. Results & Data Results & Data Vital Signs (Past 12 Hours) Vital Signs Temp Pulse Pulse Resp BP Pulse Ox O2 Del Method 12/06/24 09:28 Nasal Cannula 12/06/24 07:47 98.1 F 79 16 112/62 99 Nasal Cannula 12/06/24 07:34 82 12/06/24 03:10 98.2 F 88 18 114/71 98 Nasal Cannula O2 Flow Rate 12/06/24 09:28 3 12/06/24 07:47 4 12/06/24 07:34 12/06/24 03:10 4 PG Care Time/CCT Total # of Minutes Spent Total Time Spent with Patient: Total time spent is greater than 50% in coordination of care (as documented) at patient's floor/unit and/or counseling patient: Coding Level of Care Code 91133 SUB INP/OBS CARE 2/35MIN Diagnoses COPD (chronic obstructive pulmonary disease) J44.9 COPD type: unspecified COPD Adenocarcinoma of lung, stage 3 C34.90 Chronic kidney disease N18.9 Hyponatremia E87.1 Large B-cell lymphoma C85.10 Acute cholecystitis K81.0 Hernia K46.9 Time Spent (min) 35 (1) COPD (chronic obstructive pulmonary disease) COPD type: unspecified COPD Qualified Code(s): J44.9 - Chronic obstructive pulmonary disease, unspecified
--- NOTE | 2024-12-07 11:13 | Discharge Summary ---
Date of Service December 07, 2024 Admission HPI Per Admitting Provider This is a 84 y/o female patient with PMHx of COPD, Graves' disease, Lung adenocarcinoma, CKD-3, and recent admission for management of PNA who presented to the ed via EMS due to RUQ pain with associated N/V and poor PO intake. Patient comes from [employer] where, since 2 days ago, had been experiencing nausea that has lead him to decrease his PO intake, and yesterday had an episode of non-bloody emesis, after which he stopped eating/drinking due to concern of repeat emesis. Denies having any abdominal pain, urinary symptoms, bloody stool, fevers, chills, chest pain, palpitations, SOB, or other symptoms. ED Course: ceftriaxone 2 g given x1 Labs/Imaging: CBC w/o leukocytosis (mild neutrophilia), Hgb at 11.4, plt of 257. CMP with mild hyponatremia at 133 and no other electrolyte abnormalities, Cr of 1.09, bsg of 171. LFT with elevated transaminases and alk phos. Lipase wnl at 17. U/A with positive leukocyte esterase and negative nitrites and bacteria, no blood noted. CTAP noting likely acute cholecystitis (gallbladder wall edema and mild wall thickening plus some layering gallbladder sludge), also noting intramuscular lipoma in right iliopsoas and right inguinal hernia containing fat and cecal/ileocecal junction. Head CT unremarkable. Medical History: [Reviewed] Medications: [Reviewed] Surgical History: [Reviewed] Family history: [Reviewed] Allergies: [Reviewed] Social History: [Reviewed] Admission Exam (Per Admitting) Constitutional The patient is awake, alert and oriented 3, well developed and well nourished, normocephalic and atraumatic, lying in bed and in no acute distress. HEENT--PERRL, EOMI, mucous membranes and oropharynx mildly dry Neck--supple. No JVD. No bruits. Thyroid normal, trachea midline, no adenopathy. Heart--normal S1 and S2. No murmurs, rubs or gallops. Lungs--clear bilaterally, no respiratory distress, no accessory muscle use. Abdomen--normal bowel sounds and soft. Extremities--no cyanosis or clubbing. No edema. Dermatologic--normal skin turgor, normal color, no abnormal lymph nodes, no rash. Neurologic--cranial nerves II through XII grossly intact. Rheumatologic--normal range of motion. Psychiatric--normal affect. Discharge Data Consultations 12/04/24 21:14 ED Decision to Admit Stat 12/05/24 01:05 Consult Gastroenterology Routine Consult General Surgery Routine Hospital Course (1) COPD (chronic obstructive pulmonary disease): (2) Adenocarcinoma of lung, stage 3: (3) Chronic kidney disease: (4) Hyponatremia: (5) Large B-cell lymphoma: (6) Acute cholecystitis: (7) Hernia: Plan This is a 84 y/o female patient with PMHx of COPD, Graves' disease, Lung adenocarcinoma, CKD-3, and recent admission for management of PNA who was admitted for management of RUQ pain found to be related to acute cholecystitis. Acute cholecystitis - Patient with imaging, labs, and presentation consistent with acute cholecystitis --There could have been an associated gall stone, which likely passed, given improving liver enzymes - GI and gen surgery consulted, await recs -Liver US shows gallstones, MRCP suggests acute calculus cholecystitis -However, patient is reluctant to have surgery and surgery says he is a high risk, given numerous co morbidities -Will continue conservative management - continue empiric antibiotics Patient wants to go home with hospice Inguinal hernia with possible incarcerated viscus as seen on Ct Surgery on consult COPD - Continue home inhalers CKD - Cr was 0.89 in recent admission; today Cr 1.09 - Will order fluids as mentioned above - Monitor am labs BPH - Continue home flomax HFpEF - Continue ASA, Lasix, and Metoprolol Dispo: PCU/Tele Fluids: NSS @ 125 ml/hr x1 Diet: Pain Control: Tylenol VTE ppx: SCD Code Status: Conditional code: patient would like chest compressions and defibrillation if necessary as well as all other ACLS interventions, but is NOT interested in invasive airway interventions such as intibation or mechanical ventilation. Plan is for home with hospice today Coding Level of Care Code 92636 INP/OBS DISCH >30 MIN Diagnoses COPD (chronic obstructive pulmonary disease) J44.9 COPD type: unspecified COPD Adenocarcinoma of lung, stage 3 C34.90 Chronic kidney disease N18.9 Hyponatremia E87.1 Large B-cell lymphoma C85.10 Acute cholecystitis K81.0 Hernia K46.9 Time Spent (min) 35
[2024-12-07 15:16] VITALS: BP 122/70; PULSE 81; RESP 18; TEMP 97.9; O2SAT 98
== END 2024-12-07 15:51 | disposition hospice, home (50) | DRG 445 ==
LOC: SUATTDRO → ED 15:51 → SUATTDRO 22:29 → 2S 22:29